=== PATIENT | male | born 1960 | race Caucasian/White ===

== ENCOUNTER → 2018-04-05 | Outpatient (CLI) | payer OTHER ==
[~2018-04-05] MED LIST: PROHANCE 279.3MG/ML 15ML VIAL (A9576) As Ordered
== END ==
LOC: M RAD 10:26
DX: R68.84 Jaw pain (principal); Z85.818 Personal history of malignant neoplasm of other sites of lip, oral cavity, and pharynx; Z92.3 Personal history of irradiation
CPT/HCPCS: A9576

== ENCOUNTER 2019-02-23 00:24 | Inpatient (IN) | payer OTHER ==
[~2019-02-23] VITALS: Ht 182.9 cm; Wt 61.9 kg
[2019-02-23] VITALS (7 sets, daily range): BP systolic 100–131; BP diastolic 59–74
[~2019-02-23 00:24] MED LIST changes: +DIGO0.12 PO; +FLUC10TA PO; +GABA-1171 PO; +LISI-538 PO; +MAGN400T2 PO; +METO50TA7 PO; +MORP20SO PO; +MSIR30TA PO; +NEUR100C PO; +NEXI40CA PO; +OXYC15TA66 PO; -PROHANCE 279.3MG/ML 15ML VIAL (A9576) As Ordered; +REGL10TA6 PO; +XARE20TA PO
[2019-02-23] MEDS ORDERED: OXYC20TA40 PO (00:42)
[2019-02-23] MEDS ORDERED: MORP30TASA PO (00:42)
[2019-02-23] MEDS ORDERED: DIGO0.12 (00:42)
[2019-02-23] MEDS ORDERED: METO10TA2 PO (00:42)
[2019-02-23] MEDS ORDERED: ASPI81CH33 PO (00:49)
[2019-02-23] MEDS ORDERED: NS 1,000 ML IV ONE (01:00)
[2019-02-23] MEDS ORDERED: MORPHINE 10 MG/ML 1ML VIAL (J2270) IV ONE ×2 (01:00→05:00)
[2019-02-23 01:20] LABS: BASO # 0.1 10^3/uL (0.0-0.2); BASO % 1.1 % (0.0-1.0); EOS # 0.4 10^3/uL (0.0-0.50); EOS % 8.1 % (0.0-3.0); HEMATOCRIT 38.1 % (42.0-52.0); HEMOGLOBIN 13.5 g/dl (13.5-17.5); LYMPH % 21.7 % (24.0-44.0); MEAN CORPUSCULAR HEMOGLOBIN 38.7 pg (27.0-33.0); MEAN CORPUSCULAR HGB CONC 35.4 g/dl (32.0-36.5); MEAN CORPUSCULAR VOLUME 109.2 fl (80.0-96.0); MONO # 0.6 10^3/uL (0.0-0.8); MONO % 13.4 % (0.0-5.0); NEUTROPHILS # 2.6 10^3/uL (1.8-7.7); NEUTROPHILS % 55.1 % (36.0-66.0); PLATELET COUNT, AUTOMATED 135 10^3/uL (150-450); RED BLOOD COUNT 3.49 10^6/uL (4.30-6.10); WHITE BLOOD COUNT 4.7 10^3/uL (4.0-10.0)
[2019-02-23 01:38] LABS: PROTHROMBIN TIME 13.3 SECONDS (12.1-14.4)
[2019-02-23 01:39] LABS: PARTIAL THROMBOPLASTIN TIME 30.2 SECONDS (25.4-37.6)
[2019-02-23 01:55] LABS: BLOOD UREA NITROGEN 3 MG/DL (7-18); CALCIUM LEVEL 7.8 MG/DL (8.5-10.1); CARBON DIOXIDE LEVEL 28 MEQ/L (21-32); CHLORIDE LEVEL 98 MEQ/L (98-107); CREATININE FOR GFR 0.42 MG/DL (0.70-1.30); ETHYL ALCOHOL (ETHANOL) 0.291 % (0.000-0.010); GLOMERULAR FILTRATION RATE > 60.0 (>56); GLUCOSE, FASTING 95 MG/DL (70-100); POTASSIUM SERUM 4.8 MEQ/L (3.5-5.1); SODIUM LEVEL 134 MEQ/L (136-145)
[2019-02-23] MEDS ORDERED: DIGO0.12 PO (02:54)
[2019-02-23] MEDS ORDERED: MAG-400T7 PO (02:54)
[2019-02-23] MEDS ORDERED: ESOM1CAP5 PO (02:54)
[2019-02-23] MEDS ORDERED: METO50TA7 PO (02:54)
[2019-02-23] MEDS ORDERED: POTA50TAB PO (03:00)
[2019-02-23] MEDS ORDERED: oxyCODONE 20 MG CR TAB PO SCH (03:15)
[2019-02-23] MEDS: D5W/0.45% SODIUM CHLORIDE 1,000 ML IV SCH ×2 (03:40→13:07)
--- NOTE | 2019-02-23 07:15 | ECGEPIP ---
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
[2019-02-23] MEDS: MAGNESIUM OXIDE 400 MG TAB (MAG-OX) PO SCH ×2 (08:21→20:58)
[2019-02-23] MEDS: METOCLOPRAMIDE 10 MG TAB PO SCH (08:21)
[2019-02-23] MEDS: MORPHINE 30 MG SA TAB PO SCH ×2 (08:21→21:01)
--- NOTE | 2019-02-23 08:34 | HPE ---
DATE OF ADMISSION: 02/23/2019 PRIMARY CARE PROVIDER: Dr. Layton Olguin. CHIEF COMPLAINT: Left hip pain. HISTORY OF PRESENT ILLNESS: The patient is a 58-year-old white male with a history of atrial fibrillation and the jaw cancer presented to the ER for evaluation of left hip pain after fall at home. History was provided by himself. He states he had trapped with his dog and fell at home. He has a horrible pain in his left hip and brought to the hospital for further evaluation. He denies any syncope episodes. The ER he had an x-ray done which demonstrated that he had some left hip fracture and orthopedics was called for consult. Meanwhile medicine service was called for admission. REVIEW OF SYSTEMS: Denies fever, no chills, no headache, no blurred vision no shortness of breath, no chest pain, no abdomen pain. All other systems reviewed are negative. MEDICAL HISTORY: Chronic atrial fibrillation Jaw cancer, s/p surgery and radiation therapy Chronic pain on chronic narcotics. SURGICAL HISTORY: Jaw cancer resection and reconstruction. ALLERGIES: No known drug allergies. SOCIAL HISTORY: Denies tobacco use, alcohol, drinking on the weekend, about 6 beers on the weekend and no drug abuse. He lives by himself. FAMILY HISTORY: Negative for cancer or coronary artery disease. MEDICATIONS: Reviewed. PHYSICAL EXAMINATION: VITALS: Temperature 98.7, heart rate 87, blood pressure 102/70, Oxygen sat 97% on room air. GENERAL: He is awake, alert and oriented times three. He is in acute pain and stress. HEENT: Atraumatic. Pupils are equal and round reactive to light. Ear, nose and extraocular muscles are intact and no jaundice. Ear, nose and throat are normal. Mouth, mucous not dry and he does have a extensive surgical scar tissue in his jaw/neck area. LUNGS: Clear. No wheezes and no crackles. Heart S1, S2 regular no murmur. HEART: S1, S2 irregular but no murmur. ABDOMEN: Soft and bowel sounds present nontender. EXTREMITIES: No edema. He has a shortened and externally rotate in the left extremity. NEUROLOGICAL: Nonfocal. SKIN: No rash. PSYCHE: No acute psychosis. LABS: WBC 4.7, hemoglobin and hematocrit 13.5 over 38, platelets 135, sodium 134, potassium 4.0, creatinine 0.2, bicarbonate 28, glucose 95, PT/INR was in normal limits and x-ray was reviewed which showed a left hip fracture. IMPRESSION 1. Left hip fracture secondary to mechanical fall. 2. History of chronic atrial fibrillation which is rate controlled. PLAN: The patient will be admitted to medical floor. Will continue his regular medicine. We will keep him nothing by mouth. He is medically clear for possible surgical repair of his left hip. AYDIN
[2019-02-23] MEDS ORDERED: ENOXAPARIN 40 MG/0.4 ML SYRINGE (J1650) SC SCH (09:00)
--- NOTE | 2019-02-23 10:33 | IPNPDOC ---
Subjective Date Seen The patient was seen on 02/23/19. Subjective Chief Complaint/HPI Does not have any complaints this morning except for pain in his hip even on slight movement. No fever or chills, no tremors, says does not have any withdrawal symptoms if he does not drink. Objective Physical Examination General Exam: Positive: Alert, Cooperative, No Acute Distress Eye Exam: Positive: PERRLA, Conjunctiva & lids normal, EOMI; Negative: Sclera icteric ENT Exam: Positive: Mucous membr. moist/pink Neck Exam: Positive: Supple; Negative: JVD, thyromegaly Chest Exam: Positive: Clear to auscultation, Normal air movement Heart Exam: Positive: Rate Normal, Irregular Rhythm, Normal S1, Normal S2 Telemetry: Positive: Atrial fibrillation Abdomen Exam: Positive: Normal bowel sounds, Soft; Negative: Tenderness, Hepatospenomegaly Extremity Exam: Positive: Normal pulses; Negative: Clubbing, Cyanosis, Edema Neuro Exam: Positive: Normal Speech, Strength at 5/5 X4 ext, Normal Tone Psych Exam: Positive: Mental status NL, Memory Intact, Oriented x 3 Assessment /Plan Assessment 58-year-old white male with a history of cardiomyopathy in 2006 recovered, atrial fibrillation on ASA, and the jaw cancer with extensive reconstruction in 2012 presented to the ER for evaluation of left hip pain after fall at home. History was provided by himself. He stated that he had tripped on his dog and fell at home. He has a horrible pain in his left hip and brought to the hospital for further evaluation. Has was also drinking heavily at that time and had had several beers. He denies any syncope episodes. The ER he had an x-ray done which demonstrated that he had some left hip fracture and was admitted for the same. Left hip fracture planned for surgery on 02/23/19 Once his alcohol level is down he will be going to OR pain management and DVT prophylaxis as per ortho Afib continue metoprolol and digoxin patient has afib rate controlled on ASA Alcohol abuse no signs of withdrawal will give thiamine and folate. CIWA protocol. Jaw cancer s/p surgery and reconstruction in 2012 chronic pain on ns contin bid and oxycodone also at home will continue. no issues at this point. Plan/VTE VTE Prophylaxis Ordered?: Yes VS, I&O, 24H, Fishbone Vital Signs/I&O Vital Signs Date Time Temp Pulse Resp B/P (MAP) Pulse Ox O2 Delivery O2 Flow Rate FiO2 02/23/19 08:21 16 02/23/19 05:50 99.2 91 103/63 93 02/23/19 03:35 Room Air I&O- Last 24 Hours up to 6 AM 02/23/19 06:00 Intake Total 1200 ml Balance 1200 ml Laboratory Data 24H LABS Laboratory Tests 2 02/23/19 01:12: Immature Granulocyte % (Auto) 0.6, White Blood Count 4.7, Red Blood Count 3.49L, Hemoglobin 13.5, Hematocrit 38.1L, Mean Corpuscular Volume 109.2H, Mean Rajeev uscular Hemoglobin 38.7H, Mean Corpuscular Hemoglobin Concent 35.4, Red Cell Distribution Width 13.5, Platelet Count 135L, Neutrophils (%) (Auto) 55.1, Lymphocytes (%) (Auto) 21.7L, Monocytes (%) (Auto) 13.4H, Eosinophils (%) (Auto) 8.1H, Basophils (%) (Auto) 1.1H, Neutrophils # (Auto) 2.6, Lymphocytes # (Auto) 1.0L, Monocytes # (Auto) 0.6, Eosinophils # (Auto) 0.4, Basophils # (Auto) 0.1, Nucleated Red Blood Cells % (auto) 0.0, Prothrombin Time 13.3, Prothromb Time International Ratio 1.00, Activated Partial Thromboplast Time 30.2, Anion Gap 8, Glomerular Filtration Rate > 60.0, Blood Urea Nitrogen 3L, Creatinine 0.42L, Sodium Level 134L, Potassium Level 4.8, Chloride Level 98, Carbon Dioxide Level 28, Calcium Level 7.8L, Ethyl Alcohol Level 0.291H 02/23/19 09:09: Ethyl Alcohol Level 0.084H CBC/BMP Laboratory Tests 02/23/19 01:12 Red Blood Count 3.49 L, Mean Corpuscular Volume 109.2 H, Mean Corpuscular Hemoglobin 38.7 H, Mean Corpuscular Hemoglobin Concent 35.4, Red Cell Distribution Width 13.5, Neutrophils (%) (Auto) 55.1, Lymphocytes (%) (Auto) 21.7 L, Monocytes (%) (Auto) 13.4 H, Eosinophils (%) (Auto) 8.1 H, Basophils (%) (Auto) 1.1 H, Neutrophils # (Auto) 2.6, Lymphocytes # (Auto) 1.0 L, Monocytes # (Auto) 0.6, Eosinophils # (Auto) 0.4, Basophils # (Auto) 0.1, Calcium Level 7.8 L JING BHAT MD Feb 23, 2019 10:33
--- NOTE | 2019-02-23 11:38 | REP ---
LEFT FEMUR: AP and lateral views of the left femur are performed. Comminuted intertrochanteric fracture of the proximal left femur is noted with mild varus angulation. The distal femur is intact. There is metallic internal fixation in the proximal tibia. There is no dislocation. Electronically Signed by Papo Fischer MD 02/23/2019 07:27 P
--- NOTE | 2019-02-23 11:40 | REP ---
PELVIS AND LEFT HIP: AP view of the pelvis and AP and frogleg views of the left hip are performed. There is a comminuted intertrochanteric fracture of the proximal left femur, with a separate lesser trochanter fragment. There is mild varus angulation, with medial displacement of the lesser trochanter fragment. No other acute fracture or dislocation is seen. There is mild degenerative change of the left hip joint itself. There is more severe degenerative change at the right hip joint with severe joint space narrowing and subchondral sclerosis. There are a few rounded joint bodies adjacent to the right femoral head, the largest superolaterally is 1.5 cm in diameter. Electronically Signed by Papo Fischer MD 02/23/2019 07:27 P
[2019-02-23] MEDS: MORPHINE 10 MG/ML 1ML VIAL (J2270) IV PRN ×2 (13:01→17:11)
--- NOTE | 2019-02-23 14:27 | CR.PDOC ---
General Date of Consultation: Feb 23, 2019 Referring Provider: JING BHAT MD Attending Physician: JAIDEN CARY MD Consultation REASON FOR CONSULTATION/CHIEF COMPLAINT: Left proximal femur fracture. HISTORY OF PRESENT ILLNESS: Patient is a 58 y/o male community ambulator with no assistive devices who was intoxicated last night and sustained a mechanical fall after tripping over his dog and had immediate left hip pain and inability to bear weight. He was brought to the ER and found to have an intertrochanteric femur fracture and orthopedics was consulted for further management. He was admitted to the hospitalist for medica optimization and risk stratification. Patient recalls the fall event but does not remember how much he drank. Denies drinking daily. Denies any antecedent chest pain, shortness of breath, headache, or hip pain. No associated numbness, tingling, or burning sensations. ALLERGIES: Please see below. HOME MEDICATIONS: Please see below. PAST MEDICAL HISTORY: 1. Atrial fibrillation. 2. Jaw cancer, in remission. 3. GERD 4. Hypertension 5. Chronic pain PAST SURGICAL HISTORY: 1. Jaw reconstruction 2. L knee HTO FAMILY HISTORY: non contributory SOCIAL HISTORY: Patient lives alone and independent in all ADLs. 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 Prior smokeless tobacco user, denies current smoking or smokeless tobacco use. States he drinks one 12 pack of beer per week. REVIEW OF SYSTEMS: CONSTITUTIONAL: NO fevers, chills, or night sweats. HEENT: Prior history of jaw reconstruction. CARDIOVASCULAR: History of A fib. no current chest pain or palpitations. RESPIRATORY: No cough, wheeze, or shortness of breath. GENITOURINARY: No pain or burning with urination. MUSCULOSKELETAL: L hip fx per HPI. GASTROINTESTINAL: No nausea, vomiting, or diarrhea. NEUROLOGICAL: + intoxication on admission. HEMATOLOGIC/LYMPHATIC: history of chemotherapy for jaw cancer, currently in remission per patient. PHYSICAL EXAMINATION: VITAL SIGNS: Please see below. GENERAL APPEARANCE: Appears older than stated age, no acute distress. HEENT: Sequelae of prior jaw reconstruction. No evidence of acute trauma. RESPIRATORY: Non labored breathing. CARDIOVASCULAR: 2+ DP/PT pulses. BCR all digits LLE. EXTREMITIES: L hip with no open wounds or abrasions. There is maximal tenderness about the anterior and lateral aspect of the L hip. Held in a flexed, externally rotated position. No tenderness about the knee, leg, or ankle. Able to flex/extend toes and plantarflex/dorsiflex ankle. NEUROLOGICAL: Sensation and motor grossly intact in LLE femoral, tibial, sural, saphenous, SPN, DPN distributions. LABORATORY DATA: Please see below. Alcohol level on admission 0.291, down to 0.08 at 0900. INR 1.0 Radiographs: Plain radiographs of the left hip, pelvis, and femur demonstrate a displaced intertrochanteric left femur fracture. ASSESSMENT: 58 y/o male, intoxicated on admission, with an unstable intertrochanteric L femur fracture PLAN: I discussed with the patient the nature of his injury and the proposed treatment. These injuries require surgical stabilization as soon as medically optimized in order to minimize the risk of complications. The risks, benefits, indications, and alternatives were explained to the patient and I recommend closed versus open reduction and cephalomedullary nail fixation. I counseled him that I will be his operating surgeon, but his follow up care will be conducted by the [facility]. I counseled him that he may be at increased risk of VTE event post operatively and will require post op chemoprophylaxis. A repeat alcohol level was drawn at 0900 which was down to 0.08. Written informed consent was obtained from the patient at 1420. We will proceed with L proximal femur open versus closed reduction and cephalomedullary nail fixation today. -Ancef 2g IV OCTOR -WBAT LLE post op -Xarelto 10mg PO daily to begin POD1 Vital Signs/I&O Vital Signs Date Time Temp Pulse Resp B/P (MAP) Pulse Ox O2 Delivery O2 Flow Rate FiO2 02/23/19 08:21 16 02/23/19 05:50 99.2 91 103/63 93 02/23/19 03:35 Room Air I&O- Last 24 Hours up to 6 AM 02/23/19 06:00 Intake Total 1200 ml Balance 1200 ml Laboratory Data Labs 24H Laboratory Tests 2 02/23/19 01:12: Immature Granulocyte % (Auto) 0.6, White Blood Count 4.7, Red Blood Count 3.49L, Hemoglobin 13.5, Hematocrit 38.1L, Mean Corpuscular Volume 109.2H, Mean Corpuscular Hemoglobin 38.7H, Mean Corpuscular Hemoglobin Concent 35.4, Red Cell Distribution Width 13.5, Platelet Count 135L, Neutrophils (%) (Auto) 55.1, Lymphocytes (%) (Auto) 21.7L, Monocytes (%) (Auto) 13.4H, Eosinophils (%) (Auto) 8.1H, Basophils (%) (Auto) 1.1H, Neutrophils # (Auto) 2.6, Lymphocytes # (Auto) 1.0L, Monocytes # (Auto) 0.6, Eosinophils # (Auto) 0.4, Basophils # (Auto) 0.1, Nucleated Red Blood Cells % (auto) 0.0, Prothrombin Time 13.3, Prothromb Time International Ratio 1.00, Activated Partial Thromboplast Time 30.2, Anion Gap 8, Glomerular Filtration Rate > 60.0, Blood Urea Nitrogen 3L, Creatinine 0.42L, Sodium Level 134L, Potassium Level 4.8, Chloride Level 98, Carbon Dioxide Level 28, Calcium Level 7.8L, Ethyl Alcohol Level 0.291H CBC/BMP Laboratory Tests 02/23/19 01:12 Red Blood Count 3.49 L, Mean Corpuscular Volume 109.2 H, Mean Corpuscular Hemoglobin 38.7 H, Mean Corpuscular Hemoglobin Concent 35.4, Red Cell Distributi on Width 13.5, Neutrophils (%) (Auto) 55.1, Lymphocytes (%) (Auto) 21.7 L, Monocytes (%) (Auto) 13.4 H, Eosinophils (%) (Auto) 8.1 H, Basophils (%) (Auto) 1.1 H, Neutrophils # (Auto) 2.6, Lymphocytes # (Auto) 1.0 L, Monocytes # (Auto) 0.6, Eosinophils # (Auto) 0.4, Basophils # (Auto) 0.1, Calcium Level 7.8 L Allergies Coded Allergies: No Known Allergies (Verified , 09/08/04) Home Medications Scheduled Aspirin (Aspirin) 81 Mg Tab.chew, 81 MG PO DAILY, (Reported) Digoxin (Digoxin) 125 Mcg Tablet, 125 MCG PO QHS, (Reported) Esomeprazole Magnesium (Esomeprazole Magnesium) 40 Mg Capsule.dr, 40 MG PO DAILY, (Reported) Magnesium Oxide (Magnesium Oxide) 400 Mg Tablet, 400 MG PO BID, (Reported) Metoclopramide HCl (Metoclopramide HCl) 10 Mg Tablet, 10 MG PO DAILY, (Reported) Metoprolol Tartrate (Metoprolol Tartrate) 50 Mg Tablet, 50 MG PO QHS, (Reported) Morphine Sulfate (Morphine Sulfate ER) 30 Mg Tablet.er, 30 MG PO BID, (Reported) Oxycodone HCl (Oxycontin) 20 Mg Tab.er.12h, 20 MG PO Q12H, (Reported) Potassium Phosphate Monobasic (K-Phos Original) 500 Mg Tablet.julissa, 500 MG PO BID, (Reported) UNABLE TO VERIFY THIS MEDICATION UNTIL THE PHARMACY OPENS MONDAY JAIDEN CARY MD Feb 23, 2019 09:24
--- NOTE | 2019-02-23 14:29 | REP ---
CHEST, SINGLE VIEW: Single view of the chest is performed and compared to prior study of 01/23/2015. There is no acute infiltrate. Heart is not significantly enlarged. Mediastinal silhouette is unchanged Metallic clips are seen in both axillary regions. IMPRESSION: No acute infiltrate. Electronically Signed by Papo Fischer MD 02/23/2019 07:40 P
[2019-02-23] MEDS ORDERED: PROPOFOL 500 MG/50 ML VIAL As Ordered ONE (15:13)
[2019-02-23] MEDS ORDERED: MIDAZOLAM INJ 2 MG/2 ML VIAL (J2250) As Ordered ONE (15:14)
[2019-02-23] MEDS ORDERED: LIDOCAINE 2% INJ 100 MG/5 ML SDV (FOR ANES.) As Ordered ONE (15:14)
[2019-02-23] MEDS ORDERED: dexameTHASONE 4 MG/ML 1ML VIAL (J1100) As Ordered ONE (15:15)
[2019-02-23] MEDS ORDERED: METOPROLOL TART 25 MG TABLET PO ONE (17:00)
[2019-02-23] MEDS: MULTIVITAMINS/MINERALS THERAP 1 TAB PO SCH (17:05)
[2019-02-23] MEDS: FOLIC ACID 1 MG TAB PO SCH (17:05)
[2019-02-23] MEDS: THIAMINE 100 MG TAB PO SCH (20:57)
[2019-02-23] MEDS: DIGOXIN 0.125 MG TAB PO SCH (20:57)
[2019-02-23] MEDS: METOPROLOL TART 50 MG TAB PO SCH (20:59)
[2019-02-23] MEDS ORDERED: METOPROLOL TART 50 MG TAB PO SCH (21:00)
[2019-02-23] MEDS: LORazepam 2 MG TAB PO PRN (21:14)
[2019-02-24] VITALS (15 sets, daily range): BP systolic 90–168; BP diastolic 51–79
[2019-02-24] MEDS ORDERED: ACETAMINOPHEN TAB 650MG DOSE (2X325MG) PO PRN (02:00)
[2019-02-24] MEDS: MORPHINE 10 MG/ML 1ML VIAL (J2270) IV PRN (02:27)
[2019-02-24] MEDS: D5W/0.45% SODIUM CHLORIDE 1,000 ML IV SCH (05:25)
[2019-02-24] MEDS ORDERED: MIDAZOLAM INJ 2 MG/2 ML VIAL (J2250) As Ordered ONE ×2 (08:09→10:42)
[2019-02-24] MEDS ORDERED: fentaNYL 100 MCG/2 ML INJECTION (J3010) As Ordered ONE ×2 (08:09→10:42)
[2019-02-24] MEDS ORDERED: BUPIVACAINE HCL 0.25% 30 ML VIAL As Ordered ONE ×2 (08:27→08:41)
[2019-02-24] MEDS ORDERED: fentaNYL 100 MCG/2 ML INJECTION (J3010) IV ONE (09:15)
[2019-02-24] MEDS ORDERED: MIDAZOLAM INJ 2 MG/2 ML VIAL (J2250) IV ONE (09:15)
[2019-02-24] MEDS ORDERED: ceFAZolin 1GM INJ (J0690 PER 500MG) As Ordered ONE (09:59)
[2019-02-24] MEDS ORDERED: ceFAZolin 2 GM/D5W 50 ML IV BAG (J0690 PER 500MG) As Ordered ONE (10:11)
[2019-02-24] MEDS ORDERED: KETAMINE HCL 200 MG/20 ML VIAL As Ordered ONE (10:42)
[2019-02-24] MEDS ORDERED: LIDOCAINE 2% INJ 100 MG/5 ML SDV (FOR ANES.) As Ordered ONE (10:42)
[2019-02-24] MEDS ORDERED: ESMOLOL INJ 100MG/10ML VIAL As Ordered ONE (10:42)
[2019-02-24] MEDS ORDERED: BUPIVACAINE HCL 0.5% 30 ML VIAL As Ordered ONE (10:42)
[2019-02-24] MEDS ORDERED: PROPOFOL 200 MG/20 ML VIAL As Ordered ONE (10:42)
[2019-02-24] MEDS ORDERED: LIDOCAINE 1% MDV 20ML VIAL ONE (10:58)
[2019-02-24] MEDS ORDERED: PROMETHAZINE INJ 25 MG/ML VIAL (J2550) IV PRN (12:15)
[2019-02-24] MEDS ORDERED: oxyCODONE 5MG TAB PO PRN (12:15)
[2019-02-24] MEDS ORDERED: METOCLOPRAMIDE INJ 10MG/2ML VIAL (J2765) IV PRN (12:15)
[2019-02-24] MEDS ORDERED: LR 1,000 ML IV SCH (12:15)
[2019-02-24] MEDS ORDERED: fentaNYL 100 MCG/2 ML INJECTION (J3010) IV PRN (12:15)
[2019-02-24] MEDS ORDERED: traMADol 50 MG TAB PO PRN ×2 (12:30)
[2019-02-24] MEDS: MAGNESIUM OXIDE 400 MG TAB (MAG-OX) PO SCH ×2 (14:13→21:14)
[2019-02-24] MEDS: FOLIC ACID 1 MG TAB PO SCH (14:14)
[2019-02-24] MEDS: METOCLOPRAMIDE 10 MG TAB PO SCH (14:14)
[2019-02-24] MEDS: MULTIVITAMINS/MINERALS THERAP 1 TAB PO SCH (14:14)
[2019-02-24] MEDS: THIAMINE 100 MG TAB PO SCH ×2 (14:14→21:14)
[2019-02-24] MEDS: METOPROLOL TART 50 MG TAB PO SCH ×2 (14:15→21:00)
[2019-02-24] MEDS: MORPHINE 30 MG SA TAB PO SCH ×2 (14:15→21:24)
[2019-02-24] MEDS ORDERED: DIGOXIN 0.125 MG TAB PO STA (14:29)
[2019-02-24] MEDS: LORazepam 2 MG TAB PO PRN (14:42)
[2019-02-24] MEDS ORDERED: NS 500 ML IV ONE (21:15)
[2019-02-24] MEDS: DIGOXIN 0.125 MG TAB PO SCH (21:15)
[2019-02-25] VITALS (9 sets, daily range): BP systolic 95–146; BP diastolic 55–82
[2019-02-25] MEDS ORDERED: DIGOXIN INJ 0.5 MG/2 ML AMP (J1160) IV STA (00:15)
--- NOTE | 2019-02-25 07:04 | REP ---
LEFT FEMUR, AP AND LATERAL: AP and lateral views of left femur are performed. There is an intramedullary aiden in the femoral shaft, an anchor in the proximal femur and two metallic screws in the distal femur. Metallic internal fixation was also seen in the proximal left tibia. Structures are well aligned. Intertrochanteric fracture is well aligned. Electronically Signed by Papo Fischer MD 02/25/2019 08:28 A
--- NOTE | 2019-02-25 07:40 | REP ---
C-ARM VIEWS LEFT HIP: Multiple C-ARM views of the left hip are performed during placement of an intramedullary aiden and for an intertrochanteric fracture. The intramedullary aiden is visualized as well as a proximal anchor and two distal screws in the femur. The structures are well aligned. 2 minutes and 16 seconds of fluoroscopy time was utilized. Electronically Signed by Papo Fischer MD 02/25/2019 08:37 A
[2019-02-25] MEDS: MIRALAX *UNIT DOSE* 17GM PACKET PO SCH (08:33)
[2019-02-25] MEDS: METOCLOPRAMIDE 10 MG TAB PO SCH (08:34)
[2019-02-25] MEDS: MOM 30ML SUSPENSION UDC PO SCH (08:34)
[2019-02-25] MEDS: METOPROLOL TART 50 MG TAB PO SCH ×2 (08:34→20:34)
[2019-02-25] MEDS: THIAMINE 100 MG TAB PO SCH ×2 (08:35→20:35)
[2019-02-25] MEDS: FOLIC ACID 1 MG TAB PO SCH (08:35)
[2019-02-25] MEDS: MAGNESIUM OXIDE 400 MG TAB (MAG-OX) PO SCH ×2 (08:35→20:35)
[2019-02-25] MEDS: MORPHINE 30 MG SA TAB PO SCH ×2 (08:35→20:35)
[2019-02-25] MEDS: MULTIVITAMINS/MINERALS THERAP 1 TAB PO SCH (08:36)
--- NOTE | 2019-02-25 08:41 | IPNPDOC ---
Subjective Date Seen The patient was seen on 02/24/19. Subjective Chief Complaint/HPI OR today . No complaints . Pain controlled, no fever or chills, no chest pain or sob , no palpitation. No signs of withdrawal . Objective Physical Examination General Exam: Positive: Alert, Cooperative, No Acute Distress Eye Exam: Positive: PERRLA, Conjunctiva & lids normal, EOMI; Negative: Sclera icteric ENT Exam: Positive: Mucous membr. moist/pink Neck Exam: Positive: Supple; Negative: JVD, thyromegaly Chest Exam: Positive: Clear to auscultation, Normal air movement Heart Exam: Positive: Rate Normal, Irregular Rhythm, Normal S1, Normal S2 Telemetry: Positive: Atrial fibrillation Abdomen Exam: Positive: Normal bowel sounds, Soft; Negative: Tenderness, Hepatospenomegaly Extremity Exam: Positive: Normal pulses; Negative: Clubbing, Cyanosis, Edema Neuro Exam: Positive: Normal Speech, Strength at 5/5 X4 ext, Normal Tone Psych Exam: Positive: Mental status NL, Memory Intact, Oriented x 3 Assessment /Plan Assessment 58-year-old white male with a history of cardiomyopathy in 2006 recovered, atrial fibrillation on ASA, and the jaw cancer with extensive reconstruction in 2012 presented to the ER for evaluation of left hip pain after fall at home. History was provided by himself. He stated that he had tripped on his dog and fell at home. He has a horrible pain in his left hip and brought to the hospital for further evaluation. Has was also drinking heavily at that time and had had several beers. He denies any syncope episodes. The ER he had an x-ray done which demonstrated that he had some left hip fracture and was admitted for the same. Left hip fracture planned for surgery on 02/23/19 however had to be postponed as pateint was in AFib with RVR rate in 140s and also there was mild alcohol withdrawal went for surgery on 02/24/19 pain management and DVT prophylaxis as per ortho Afib with RVR continue metoprolol and digoxin metoprolol dose increased. dig level ok. on ASA Alcohol abuse no signs of withdrawal today. Had mild withdrawal last night will give thiamine and folate. CIWA protocol. Jaw cancer s/p surgery and reconstruction in 2012 chronic pain on MS contin bid and oxycodone also at home will continue. no issues at this point. Plan/VTE VTE Prophylaxis Ordered?: Yes VS, I&O, 24H, Fishbone Vital Signs/I&O Vital Signs Date Time Temp Pulse Resp B/P (MAP) Pulse Ox O2 Delivery O2 Flow Rate FiO2 02/24/19 10:10 90 18 128/72 (90) 100 3 02/24/19 06:00 97.1 02/23/19 03:35 Room Air I&O- Last 24 Hours up to 6 AM 02/24/19 06:00 Intake Total 1920 ml Output Total 550 ml Balance 1370 ml Laboratory Data 24H LABS Laboratory Tests 2 02/24/19 06:21: Digoxin Level 0.8 JING BHAT MD Feb 24, 2019 10:35
--- NOTE | 2019-02-25 08:48 | IPNPDOC ---
Subjective Date Seen The patient was seen on 02/25/19. Subjective Chief Complaint/HPI Says had a bad night could not sleep due to uncontrolled pain and he was moved from 1 room to another. Pateint was moved to PCU for Afib with rvr. This morning seen working with PT . Pulse rate in 150s to 160s on mobilization from bed to chair. Will need much better control till he can be moved from PCU. No chest pain. does not complain of palpitation. No nausea or vomiting or diarrhea . Spoke with sister in law at bedside. Says he is an alcoholic starts drinking from 8 am and drinks all day. He has been falling frequently. He is also addicted to morphine. He had a temperature of T max of 101.5 last night and 100.6 this am. Could be due to alcohol withdrawal and just post op. Objective Physical Examination General Exam: Positive: Alert, Cooperative, No Acute Distress Eye Exam: Positive: PERRLA, Conjunctiva & lids normal, EOMI; Negative: Sclera icteric ENT Exam: Positive: Mucous membr. moist/pink Neck Exam: Positive: Supple; Negative: JVD, thyromegaly Chest Exam: Positive: Clear to auscultation, Normal air movement Heart Exam: Positive: Rate Normal, Irregular Rhythm, Normal S1, Normal S2 Telemetry: Positive: Atrial fibrillation Abdomen Exam: Positive: Normal bowel sounds, Soft; Negative: Tenderness, Hepatospenomegaly Extremity Exam: Positive: Normal pulses; Negative: Clubbing, Cyanosis, Edema Neuro Exam: Positive: Normal Speech, Strength at 5/5 X4 ext, Normal Tone Psych Exam: Positive: Mental status NL, Memory Intact, Oriented x 3 Assessment /Plan Assessment 58-year-old white male with a history of cardiomyopathy in 2006 recovered, atrial fibrillation on ASA, and the jaw cancer with extensive reconstruction in 2013 presented to the ER for evaluation of left hip pain after fall at home. History was provided by himself. He stated that he had tripped on his dog and fell at home. He has a horrible pain in his left hip and brought to the hospital for further evaluation. Has was also drinking heavily at that time and had had several beers. He denies any syncope episodes. The ER he had an x-ray done which demonstrated that he had some left hip fracture and was admitted for the same. Left hip fracture Was planned for surgery on 02/23/19 however had to be postponed as patient was in AFib with RVR rate in 140s and also there was mild alcohol withdrawal went for surgery on 02/24/19 pain management and DVT prophylaxis as per ortho Afib with RVR rate still not controlled. Part of it could be due to alcohol withdrawal issues. continue metoprolol and digoxin metoprolol dose increased. given extra doses of digoxin. Bp low normal so will not be able to increase dose of metoprolol dig level ok. on ASA Alcohol abuse/ alcoholic no signs of withdrawal today. Had mild withdrawal last night will give thiamine and folate. [facility] protocol. Jaw cancer s/p surgery and reconstruction in 2012 chronic pain issues, narcotic dependence on MS contin bid and oxycodone also at home will continue. no issues at this point. Plan/VTE VTE Prophylaxis Ordered?: Yes VS, I&O, 24H, Fishbone Vital Signs/I&O Vital Signs Date Time Temp Pulse Resp B/P (MAP) Pulse Ox O2 Delivery O2 Flow Rate FiO2 02/25/19 08:35 20 02/25/19 08:34 150 105/55 02/25/19 04:00 100.6 95 02/24/19 12:10 2 02/23/19 03:35 Room Air I&O- Last 24 Hours up to 6 AM 02/25/19 06:00 Intake Total 1100 ml Balance 1100 ml JING BHAT MD Feb 25, 2019 08:48
--- NOTE | 2019-02-25 10:58 | RO ---
DATE OF PROCEDURE: 02/24/2019 PREOPERATIVE DIAGNOSIS: Left intertrochanteric femur fracture. POSTOPERATIVE DIAGNOSIS: Left intertrochanteric femur fracture. PROCEDURE PERFORMED: Left proximal femur closed reduction and cephalomedullary nail fixation. SURGEON: Teo Sims MD RECREATIONAL THERAPY TECHNICIAN: CYNDEE Galindo ANESTHESIA PROVIDER: Bennie Cantu MD ANESTHESIA GIVEN: Single-shot femoral nerve block and single-shot spinal. ANTIBIOTICS: 2 grams Ancef given within 1 hour of incision. IMPLANTS USED: Synthes TFN-Advanced 11 mm x 420 mm nail with a 95 mm helical blade and 56 and 58 mm x 5mm distal interlocking screws. COMPLICATIONS: None. ESTIMATED BLOOD LOSS: 150 mL. MATERIALS SENT TO LABORATORY: None. INDICATION FOR PROCEDURE: Agnieszka Weir is a 58-year-old alcoholic male who sustained a mechanical fall while intoxicated the evening of 02/22/2019. He had immediate left hip pain and inability to bear weight and presented to the emergency department and was found to have intertrochanteric femur fracture. He was admitted by hospitalist service for medical optimization. His surgery had to be delayed secondary to tachycardia resulting from a combination of atrial fibrillation and possible alcohol withdrawal symptoms, which was then brought under control. He was then cleared for surgery. I discussed with him the nature of his injury and the risks, benefits, indications, and alternatives of operative versus nonoperative management. I counseled him that I will be his operating surgeon and his followup care will be conducted by [facility]. He expressed understanding of this and provided written informed consent for a left proximal femur closed versus open reduction cephalomedullary nail fixation. INTRAOPERATIVE FINDINGS: There was near-anatomic reduction, stable after fixation. DESCRIPTION OF PROCEDURE: The patient was positively identified in the preoperative holding area where the surgical site was marked. He was then given a single-shot femoral nerve block by the anesthesia service for postoperative pain control. He was then brought to the operating room, where he was given a single-shot spinal anesthesia and then positioned supine on the fracture table with all bony prominences appropriately padded. Sequential compression device (SCD) was placed on the nonoperative extremity for deep venous thrombosis (DVT) prophylaxis. I obtained a provisional reduction using fracture table and intraoperative C-arm fluoroscopy. He was then prepped and draped in the usual sterile fashion. A final time-out was performed. I made a 3 cm incision about 3 fingerbreadths proximal posterior to the tip of the greater trochanter. I dissected through skin and subcutaneous tissue. I introduced the 3.2 mm threaded guidewire to the level of the lesser trochanter centered on AP and lateral hip fluoroscopic imaging. I then induced the opening reamer, followed by the ball-tip guidewire down to level of the superior pole of the patella. The nail was then measured. I elected to place a 420 mm nail. I then passed a 12.5 mm end-cutting reamer, followed by placement of the nail to an appropriate depth. I then made an accessory lateral incision for placement of the helical blade. An additional 3.2 mm guidepin was advanced centered in the femoral neck on AP and lateral fluoroscopic imaging, advanced to the subchondral bone. It was then measured, reamed, and the 95 mm helical blade was placed in standard fashion. I took fluoroscopic images to confirm no intra-articular penetration of implants. I then proceeded to place two distal interlocking screws using standard perfect sycuan technique. After this was completed, I obtained final fluoroscopic imaging of the knee and hip, confirming adequate placement of all implants and adequate reduction of the proximal femur. At this point, the wounds were thoroughly irrigated with normal saline and closed in layers. The two proximal lateral incisions were closed with buried 2-0 Vicryl suture and prasad. The stab incisions for the distal interlocking screws were closed with prasad. Sterile dressings were applied. This ended the procedure. I was present and scrubbed in for all critical portions of the case. POSTOPERATIVE PLAN: The patient will return to the hospital floor. He will be weightbearing as tolerated to the left lower extremity. He will undergo physical therapy for ambulation with a walker, begin xarelto for DVT prophylaxis on POD1, and he will be discharged by hospitalist service when criteria met. AYDIN
[2019-02-25] MEDS: D5W/0.45% SODIUM CHLORIDE 1,000 ML IV SCH ×2 (11:26→21:07)
[2019-02-25] MEDS: traMADol 50 MG TAB PO PRN (16:20)
[2019-02-25] MEDS: RIVAROXABAN 10 MG TAB (XARELTO) PO SCH (17:37)
[2019-02-25] MEDS: DIGOXIN 0.125 MG TAB PO SCH (20:33)
[2019-02-26] VITALS (12 sets, daily range): BP systolic 98–120; BP diastolic 56–65
[2019-02-26] MEDS: ACETAMINOPHEN TAB 650MG DOSE (2X325MG) PO PRN (01:25)
[2019-02-26 06:43] LABS: HEMATOCRIT 19.8 % (42.0-52.0); MEAN CORPUSCULAR HEMOGLOBIN 38.3 pg (27.0-33.0); MEAN CORPUSCULAR HGB CONC 34.8 g/dl (32.0-36.5); WHITE BLOOD COUNT 4.9 10^3/uL (4.0-10.0)
[2019-02-26 07:11] LABS: HEMOGLOBIN 6.9 g/dl (13.5-17.5); PLATELET COUNT, AUTOMATED 83 10^3/uL (150-450)
[2019-02-26] MEDS: FOLIC ACID 1 MG TAB PO SCH (08:18)
[2019-02-26] MEDS: MORPHINE 30 MG SA TAB PO SCH (08:18)
[2019-02-26] MEDS: MAGNESIUM OXIDE 400 MG TAB (MAG-OX) PO SCH ×2 (08:18→20:51)
[2019-02-26] MEDS: THIAMINE 100 MG TAB PO SCH (08:19)
[2019-02-26] MEDS: MOM 30ML SUSPENSION UDC PO SCH (08:19)
[2019-02-26] MEDS: MULTIVITAMINS/MINERALS THERAP 1 TAB PO SCH (08:19)
[2019-02-26] MEDS: MIRALAX *UNIT DOSE* 17GM PACKET PO SCH (08:19)
[2019-02-26] MEDS: METOCLOPRAMIDE 10 MG TAB PO SCH (08:19)
[2019-02-26] MEDS: METOPROLOL TART 50 MG TAB PO SCH (08:20)
[2019-02-26] MEDS ORDERED: D5W/0.45% SODIUM CHLORIDE 1,000 ML IV SCH (12:35)
[2019-02-26] MEDS ORDERED: traMADol 50 MG TAB PO PRN (12:45)
[2019-02-26] MEDS ORDERED: MORPHINE 10 MG/ML 1ML VIAL (J2270) IV PRN (12:45)
[2019-02-26] MEDS: oxyCODONE 20 MG CR TAB PO SCH ×2 (14:16→20:52)
[2019-02-26] MEDS ORDERED: MORPHINE 30 MG SA TAB PO PRN (14:30)
--- NOTE | 2019-02-26 14:46 | IPNPDOC ---
Text Note Date of Service The patient was seen on 02/26/19. 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 In the ER, patient was found to have a left hip fracture was admitted to hospital service for further evaluation, treatment. Patient was seen and examined at the bedside. Currently reports that he feels relatively fine. He denies any chest pain, shortness of breath, palpitations. Denies nausea, vomiting, as well as transabdominal pain. Denies consultation in her diarrhea. Denies any change in the color or stool. Denies any blood in his stool or urine. Objective: Vitals (See below) General: Lying in bed, no acute distress, comfortable, AAOx3 HEENT: Mandibular surgery noted CVS: RRR, +S1S2 Lungs: Fair air entry b/l, -w/r/r Abdomen: Soft, ND, NT Extremities: - Edema, - Calf tenderness Assessment and plan: Left hip fracture - s/p ORIF (02/24/19) - pain management, PT and anticoagulation as per Orthopedic team Afib with RVR - Patient continues to experience episodes of uncontrolled rate - Continue with digoxin - Will adjust metoprolol and spread out frequency - Continue with full evaluation with Xarelto (re: Hip fracture); as an outpatient patient is only on ASA Alcohol abuse/ alcoholic - Currently has no withdrawal symptoms - c/w Thiamine and Folate - c/w [facility] Protocol Jaw cancer s/p surgery and reconstruction in 2012 - Patient experiences chronic pain - Will adjust long acting pain medications after verifying with outpatient pharmacy DVT prophylaxis - on full anticoagulation with Xarelto VS,Fishbone, I+O VS, Fishbone, I+O Laboratory Tests 02/26/19 06:13 Red Blood Count 1.80 L, Mean Corpuscular Volume 110.0 H, Mean Corpuscular Hemoglobin 38.3 H, Mean Corpuscular Hemoglobin Concent 34.8, Red Cell Distribution Width 12.5 Vital Signs Date Time Temp Pulse Resp B/P (MAP) Pulse Ox O2 Delivery O2 Flow Rate FiO2 02/26/19 14:16 98.7 121 16 102/60 99 2.0 02/23/19 03:35 Room Air I&O- Last 24 Hours up to 6 AM 02/26/19 06:00 Intake Total 2510 ml Output Total 800 ml Balance 1710 ml MATHIEU ALLISON MD Feb 26, 2019 14:46
[2019-02-26] MEDS: traMADol 50 MG TAB PO PRN (15:45)
[2019-02-26] MEDS: METOPROLOL TART 25 MG TABLET PO SCH ×4 (15:46→23:34)
[2019-02-26] MEDS: DIGOXIN 0.125 MG TAB PO SCH (20:51)
[2019-02-26] MEDS: RIVAROXABAN 10 MG TAB (XARELTO) PO SCH (20:53)
[2019-02-26 21:12] LABS: HEMATOCRIT 27.9 % (42.0-52.0); HEMOGLOBIN 9.7 g/dl (13.5-17.5); MEAN CORPUSCULAR HGB CONC 34.8 g/dl (32.0-36.5); MEAN CORPUSCULAR VOLUME 100.7 fl (80.0-96.0); PLATELET COUNT, AUTOMATED 96 10^3/uL (150-450); RED BLOOD COUNT 2.77 10^6/uL (4.30-6.10); WHITE BLOOD COUNT 5.2 10^3/uL (4.0-10.0)
[2019-02-26] MEDS: MORPHINE 30 MG SA TAB PO PRN (23:35)
[2019-02-27] VITALS (7 sets, daily range): BP systolic 88–103; BP diastolic 59–64
[2019-02-27] MEDS: METOPROLOL TART 25 MG TABLET PO SCH ×3 (06:14→17:17)
[2019-02-27] MEDS: traMADol 50 MG TAB PO PRN ×2 (06:14→23:26)
[2019-02-27] MEDS: MULTIVITAMINS/MINERALS THERAP 1 TAB PO SCH (08:38)
[2019-02-27] MEDS: METOCLOPRAMIDE 10 MG TAB PO SCH (08:38)
[2019-02-27] MEDS: FOLIC ACID 1 MG TAB PO SCH (08:38)
[2019-02-27] MEDS: MIRALAX *UNIT DOSE* 17GM PACKET PO SCH (08:39)
[2019-02-27] MEDS: MOM 30ML SUSPENSION UDC PO SCH (08:39)
[2019-02-27] MEDS: MAGNESIUM OXIDE 400 MG TAB (MAG-OX) PO SCH ×2 (08:39→20:56)
[2019-02-27] MEDS: oxyCODONE 20 MG CR TAB PO SCH ×2 (08:39→20:56)
[2019-02-27 09:12] LABS: HEMATOCRIT 25.9 % (42.0-52.0); HEMOGLOBIN 9.3 g/dl (13.5-17.5); MEAN CORPUSCULAR HGB CONC 35.9 g/dl (32.0-36.5); MEAN CORPUSCULAR VOLUME 100.4 fl (80.0-96.0); PLATELET COUNT, AUTOMATED 101 10^3/uL (150-450); RED BLOOD COUNT 2.58 10^6/uL (4.30-6.10); WHITE BLOOD COUNT 4.4 10^3/uL (4.0-10.0)
[2019-02-27 09:32] LABS: BLOOD UREA NITROGEN 5 MG/DL (7-18); CALCIUM LEVEL 7.6 MG/DL (8.5-10.1); CARBON DIOXIDE LEVEL 32 MEQ/L (21-32); CHLORIDE LEVEL 99 MEQ/L (98-107); CREATININE FOR GFR 0.33 MG/DL (0.70-1.30); GLOMERULAR FILTRATION RATE > 60.0 (>56); GLUCOSE, FASTING 86 MG/DL (70-100); MAGNESIUM LEVEL 1.8 MG/DL (1.8-2.4); POTASSIUM SERUM 3.7 MEQ/L (3.5-5.1); SODIUM LEVEL 134 MEQ/L (136-145)
--- NOTE | 2019-02-27 11:47 | IPNPDOC ---
Text Note Date of Service The patient was seen on 02/27/19. 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 In the ER, patient was found to have a left hip fracture was admitted to hospital service for further evaluation, treatment. Patient was seen and examined at the bedside. Patient reports that he's no longer expressing any lightheadedness or dizziness. He will be working with physical therapy today. Denies chest pain churns of breath or palpitations. Still reports hip ache and generalized weakness. Objective: Vitals (See below) General: Lying in bed, no acute distress, comfortable, AAOx3 HEENT: Mandibular surgery noted CVS: RRR, +S1S2 Lungs: No auscultated wheezing, rhonchi, rales Abdomen: Soft, ND, non-tender Extremities: No evidence of edema, - Calf tenderness Assessment and plan: Left hip fracture - s/p ORIF (02/24/19) - pain management, PT and anticoagulation as per Orthopedic team - Patient will be continuing with physical therapy today A. fib with RVR - s/p Episode of uncontrolled rate - Continue with digoxin - c/w metoprolol at adjusted frequency - Continue with full evaluation with Xarelto (re: Hip fracture); as an outpatient patient is only on ASA Alcohol abuse/ alcoholic - Currently has no withdrawal symptoms - c/w Thiamine and Folate - c/w [facility] Protocol Jaw cancer s/p surgery and reconstruction in 2012 - Patient experiences chronic pain - c/w Oxycodone and Morphine long acting forms DVT prophylaxis - on full anticoagulation with Xarelto Disposition: - Possible transition to ARU VS,Fishbone, I+O VS, Fishbone, I+O Laboratory Tests 02/26/19 20:52 Red Blood Count 2.77 L, Mean Corpuscular Volume 100.7 H, Mean Corpuscular Hemog lobin 35.0 H, Mean Corpuscular Hemoglobin Concent 34.8, Red Cell Distribution Width 18.6 H 02/27/19 08:41 Red Blood Count 2.58 L, Mean Corpuscular Volume 100.4 H, Mean Corpuscular Hemoglobin 36.0 H, Mean Corpuscular Hemoglobin Concent 35.9, Red Cell Distribution Width 18.6 H, Calcium Level 7.6 L Vital Signs Date Time Temp Pulse Resp B/P (MAP) Pulse Ox O2 Delivery O2 Flow Rate FiO2 02/27/19 08:39 18 02/27/19 06:14 76 101/63 02/27/19 06:00 98.0 97 02/26/19 16:15 2.0 02/23/19 03:35 Room Air I&O- Last 24 Hours up to 6 AM 02/27/19 06:00 Intake Total 1280 ml Output Total 1325 ml Balance -45 ml MATHIEU ALLISON MD Feb 27, 2019 11:47
[2019-02-27] MEDS ORDERED: NS 500 ML IV SCH (15:00)
[2019-02-27] MEDS ORDERED: NS 500 ML IV ONE (15:00)
[2019-02-27] MEDS: RIVAROXABAN 10 MG TAB (XARELTO) PO SCH (17:31)
[2019-02-27 17:50] LABS: HEMATOCRIT 27.9 % (42.0-52.0)
[2019-02-27] MEDS ORDERED: METOPROLOL TART 12.5 MG PER 1/2 TAB PO ONE (18:00)
[2019-02-27] MEDS: MORPHINE 30 MG SA TAB PO PRN (18:32)
[2019-02-27] MEDS: DIGOXIN 0.125 MG TAB PO SCH (20:57)
[2019-02-28] MEDS: ONDANSETRON 4MG/2ML VIAL (J2405) IV PRN ×2 (00:48→09:02)
[2019-02-28 06:00] VITALS: BP 113/69
[2019-02-28] MEDS: METOPROLOL TART 25 MG TABLET PO SCH ×2 (06:21→12:05)
[2019-02-28] MEDS: traMADol 50 MG TAB PO PRN (06:22)
[2019-02-28 06:34] LABS: BASO % 0.4 % (0.0-1.0); EOS # 0.2 10^3/uL (0.0-0.50); EOS % 3.7 % (0.0-3.0); HEMATOCRIT 33.8 % (42.0-52.0); HEMOGLOBIN 11.8 g/dl (13.5-17.5); LYMPH # 0.5 10^3/uL (1.5-4.5); LYMPH % 11.1 % (24.0-44.0); MEAN CORPUSCULAR HGB CONC 34.9 g/dl (32.0-36.5); MEAN CORPUSCULAR VOLUME 97.4 fl (80.0-96.0); MONO # 1.1 10^3/uL (0.0-0.8); NEUTROPHILS # 2.8 10^3/uL (1.8-7.7); NEUTROPHILS % 61.6 % (36.0-66.0); PLATELET COUNT, AUTOMATED 127 10^3/uL (150-450); RED BLOOD COUNT 3.47 10^6/uL (4.30-6.10); WHITE BLOOD COUNT 4.6 10^3/uL (4.0-10.0)
[2019-02-28 06:35] VITALS: BP 113/69
[2019-02-28 06:47] LABS: BLOOD UREA NITROGEN 5 MG/DL (7-18); CALCIUM LEVEL 7.6 MG/DL (8.5-10.1); CARBON DIOXIDE LEVEL 33 MEQ/L (21-32); CHLORIDE LEVEL 101 MEQ/L (98-107); CREATININE FOR GFR 0.33 MG/DL (0.70-1.30); GLOMERULAR FILTRATION RATE > 60.0 (>56); GLUCOSE, FASTING 94 MG/DL (70-100); MAGNESIUM LEVEL 1.8 MG/DL (1.8-2.4); POTASSIUM SERUM 3.5 MEQ/L (3.5-5.1); SODIUM LEVEL 136 MEQ/L (136-145)
[2019-02-28] MEDS: MOM 30ML SUSPENSION UDC PO SCH ×2 (09:00→09:02)
[2019-02-28] MEDS: MIRALAX *UNIT DOSE* 17GM PACKET PO SCH ×2 (09:00→09:02)
[2019-02-28] MEDS: oxyCODONE 20 MG CR TAB PO SCH (09:03)
[2019-02-28] MEDS: METOCLOPRAMIDE 10 MG TAB PO SCH (09:03)
[2019-02-28] MEDS: MULTIVITAMINS/MINERALS THERAP 1 TAB PO SCH (09:03)
[2019-02-28] MEDS: FOLIC ACID 1 MG TAB PO SCH (09:03)
[2019-02-28] MEDS: MAGNESIUM OXIDE 400 MG TAB (MAG-OX) PO SCH (09:03)
[2019-02-28 09:10] VITALS: BP_SYST 125; BP_DIAS 7; BP_DIAS 75
[2019-02-28] MEDS ORDERED: METO1TAB87 PO (11:08)
[2019-02-28] MEDS ORDERED: TRAM50TA2 PO (11:08)
[2019-02-28] MEDS ORDERED: XARE10TA PO (11:08)
[2019-02-28] MEDS ORDERED: FOLI1TAB11 PO (11:08)
[2019-02-28] MEDS: ACETAMINOPHEN TAB 650MG DOSE (2X325MG) PO PRN (12:02)
[2019-02-28 12:05] VITALS: BP 104/72
--- NOTE | 2019-02-28 12:20 | DS.PDOC ---
Discharge Summary General Date of Admission Feb 23, 2019 at 03:03 Date of Discharge 02/28/2019 Discharge Summary PROCEDURES PERFORMED DURING STAY: Left proximal femur closed reduction and cephalomedullary nail fixation with Dr. Kenji Sims on 02/24/2019 ADMITTING DIAGNOSES / DISCHARGE DIAGNOSES: Left hip fracture - s/p ORIF (02/24/19) A. fib with RVR Symptomatic anemia - possibly 2/2 blood loss 2/2 surgical procedure Thrombocytopenia Alcohol abuse/ alcoholic Jaw cancer s/p surgery and reconstruction in 2012 DVT prophylaxis COMPLICATIONS/CHIEF COMPLAINT: Left hip pain HISTORY OF PRESENT ILLNESS: Patient sits 58-year-old female with past medical history of Atrial fibrillation (on ASA), Jaw CA s/p surgery and radiation and extensive reconstruction in 2012, chronic pain who presented to ER with complaints of left hip pain after he fell at home. In the ER, patient was found to have a left hip fracture was admitted to hospital service for further evaluation, treatment. HOSPITAL COURSE: Left hip fracture - s/p ORIF (02/24/19) - pain management, PT and anticoagulation as per Orthopedic team - Patient will be continuing with physical therapy today A. fib with RVR - s/p Episode of uncontrolled rate - Continue with digoxin - c/w metoprolol at adjusted frequency; will adjust this to BID dosing upon transfer to ARU - Continue with full evaluation with Xarelto (re: Hip fracture); as an outpatient patient is only on ASA Symptomatic anemia - possibly 2/2 blood loss 2/2 surgical procedure - Patient had a an acute drop in H&H after surgical intervention - Denies any change in the color of his stool, denies any acute bleeding - Had reported light-headedness - s/p 4 units PRBC - Hg has improved appropriately Thrombocytopenia - improving - will continue to monitor Alcohol abuse/ alcoholic - Currently has no withdrawal symptoms - c/w Thiamine and Folate - Will DC [facility] Protocol Jaw cancer s/p surgery and reconstruction in 2012 - Patient experiences chronic pain - c/w Oxycodone and Morphine long acting forms - c/w Tramadol PRN DVT prophylaxis - on full anticoagulation with Xarelto DISCHARGE MEDICATIONS: Please see below. ALLERGIES: Please see below. PHYSICAL EXAMINATION ON DISCHARGE: Vitals (See below) General: Lying in bed, no acute distress, comfortable, AAOx3 HEENT: Mandibular surgery noted CVS: +S1S2 Lungs:-w/r/r/ Abdomen: no distention / tenderness, remains soft Extremities: - Edema noted, - Calf tenderness LABORATORY DATA: Please see below. ACTIVITY: [As tolerated]. DISCHARGE PLAN: Transfer to ARU under the care of Dr. Croft DISPOSITION: ARU DISCHARGE CONDITION: [Stable]. TIME SPENT ON DISCHARGE: 37 minutes Vital Signs/I&Os Vital Signs Date Time Temp Pulse Resp B/P (MAP) Pulse Ox O2 Delivery O2 Flow Rate FiO2 02/28/19 12:05 112 104/72 02/28/19 09:03 18 02/28/19 06:00 97.1 95 02/26/19 16:15 2.0 02/23/19 03:35 Room Air I&O- Last 24 Hours up to 6 AM 02/28/19 06:00 Intake Total 1279 ml Output Total 1675 ml Balance -396 ml Laboratory Data Labs 24H Laboratory Tests 2 02/28/19 06:12: Immature Granulocyte % (Auto) 0.2, White Blood Count 4.6, Red Blood Count 3.47L, Hemoglobin 11.8L, Hematocrit 33.8L, Mean Corpuscular Volume 97.4H, Mean Corpuscular Hemoglobin 34.0H, Mean Corpuscular Hemoglobin Concent 34.9, Red Cell Distribution Width 19.0H, Platelet Count 127L, Neutrophils (%) (Auto) 61.6, Lymphocytes (%) (Auto) 11.1L, Monocytes (%) (Auto) 23.0H, Eosinophils (%) (Auto) 3.7H, Basophils (%) (Auto) 0.4, Neutrophils # (Auto) 2.8, Lymphocytes # (Auto) 0.5L, Monocytes # (Auto) 1.1H, Eosinophils # (Auto) 0.2, Basophils # (Auto) 0.0, Nucleated Red Blood Cells % (auto) 0.0, Anion Gap 2L, Glomerular Filtration Rate > 60.0, Blood Urea Nitrogen 5L, Creatinine 0.33L, Sodium Level 136, Potassium Level 3.5, Chloride Level 101, Carbon Dioxide Level 33H, Calcium Level 7.6L, Magnesium Level 1.8 CBC/BMP Laboratory Tests 02/27/19 17:26 02/28/19 06:12 Red Blood Count 3.47 L, Mean Corpuscular Volume 97.4 H, Mean Corpuscular Hemoglobin 34.0 H, Mean Corpuscular Hemoglobin Concent 34.9, Red Cell Distribution Width 19.0 H, Neutrophils (%) (Auto) 61.6, Lymphocytes (%) (Auto) 11.1 L, Monocytes (%) (Auto) 23.0 H, Eosinophils (%) (Auto) 3.7 H, Basophils (%) (Auto) 0.4, Neutrophils # (Auto) 2.8, Lymphocytes # (Auto) 0.5 L, Monocytes # (Auto) 1.1 H, Eosinophils # (Auto) 0.2, Basophils # (Auto) 0.0, Calcium Level 7.6 L Microbiology Microbiology 02/26/19 Stool Occult Blood (NAT) - Final, Complete Discharge Medications Scheduled Digoxin (Digoxin) 125 Mcg Tablet, 125 MCG PO QHS, (Reported) Esomeprazole Magnesium (Esomeprazole Magnesium) 40 Mg Capsule.dr, 40 MG PO DAILY, (Reported) Folic Acid (Folic Acid) 1 Mg Tablet, 1 MG PO DAILY Magnesium Oxide (Magnesium Oxide) 400 Mg Tablet, 400 MG PO BID, (Reported) Metoclopramide HCl (Metoclopramide HCl) 10 Mg Tablet, 10 MG PO DAILY, (Reported) Metoprolol Tartrate (Metoprolol Tartrate) 25 Mg Tablet, 1 TAB PO BID Morphine Sulfate (Morphine Sulfate ER) 30 Mg Tablet.er, 30 MG PO BID, (Reported) Oxycodone HCl (Oxycontin) 20 Mg Tab.er.12h, 20 MG PO Q12H, (Reported) Potassium Phosphate Monobasic (K-Phos Original) 500 Mg Tablet.julissa, 500 MG PO BID, (Reported) UNABLE TO VERIFY THIS MEDICATION UNTIL THE PHARMACY OPENS MONDAY Rivaroxaban (Xarelto) 10 Mg Tablet, 10 MG PO DAILY@18 Scheduled PRN Tramadol HCl (Tramadol HCl) 50 Mg Tablet, 1-2 TAB PO Q6HP PRN for pain Allergies Coded Allergies: No Known Allergies (Verified , 09/08/04) MATHIEU ALLISON MD Feb 28, 2019 12:20
== END 2019-02-28 14:08 | DRG 482 ==
LOC: M ED 00:24 → M ED INP 03:03 → M MSPAV 03:54 → M PCU 02-24 23:55 → M MSPAV 02-26 17:42
PROVIDERS: ADMIT Hospitalist; ATTEND Internal Medicine
PROC: 0QS704Z Reposition Left Upper Femur with Internal Fixation Device, Open Approach (ICD-10-PCS; principal; 2019-02-24 08:00)
DX: S72.142A Displaced intertrochanteric fracture of left femur, initial encounter for closed fracture (principal); I48.2 Chronic atrial fibrillation; W01.0XXA Fall on same level from slipping, tripping and stumbling without subsequent striking against object, initial encounter; Y92.009 Unspecified place in unspecified non-institutional (private) residence as the place of occurrence of the external cause; F10.20 Alcohol dependence, uncomplicated; Z85.818 Personal history of malignant neoplasm of other sites of lip, oral cavity, and pharynx

== ENCOUNTER 2019-02-28 09:54 | Inpatient (IN) | payer OTHER ==
[~2019-02-28] VITALS: Ht 182.9 cm; Wt 57.3 kg
[~2019-02-28 09:54] MED LIST changes: +ASPI81CH33 PO; +DIGO0.12; +ESOM1CAP5 PO; +MAG-400T7 PO; +METO10TA2 PO; +MORP30TASA PO; +OXYC20TA40 PO; +POTA50TAB PO
[2019-02-28] MEDS ORDERED: MOM 30ML SUSPENSION UDC PO PRN (11:00)
[2019-02-28] MEDS ORDERED: BISACODYL 10 MG SUPP PR PRN (11:00)
[2019-02-28] MEDS ORDERED: oxyCODONE 5MG TAB PO PRN (11:00)
[2019-02-28] MEDS ORDERED: METO1TAB87 PO (11:08)
[2019-02-28] MEDS ORDERED: TRAM50TA2 PO (11:08)
[2019-02-28] MEDS ORDERED: XARE10TA PO (11:08)
[2019-02-28] MEDS ORDERED: FOLI1TAB11 PO (11:08)
[2019-02-28 14:15] VITALS: BP 102/60
[2019-02-28] MEDS ORDERED: ONDANSETRON 4 MG TAB (S0181) PO PRN (15:00)
[2019-02-28] MEDS: PANTOPRAZOLE 40MG TAB (PROTONIX) PO SCH (15:50)
[2019-02-28] MEDS: GABAPENTIN 100 MG CAP PO SCH ×2 (15:50→20:43)
[2019-02-28 17:13] VITALS: BP 111/69
[2019-02-28] MEDS: METOPROLOL TART 12.5 MG PER 1/2 TAB PO SCH ×2 (17:17→23:24)
--- NOTE | 2019-02-28 17:49 | HPEPDOC ---
General Office Worker Note DATE OF ADMISSION: Feb 28, 2019 at 14:15 SOURCE OF ADMISSION INFORMATION: [facility] records and patient CHIEF COMPLAINT: left hip fracture HISTORY OF PRESENT ILLNESS: 58M pmh Afib, jaw cancer s/p radiation surgery, chronic pain on opioids, chronic ETOH use who fall at home without any pre-syncopal symptoms onto his left side and presented to [facility] ED on 02/23/19 complaining of difficulty walking. EKG showed him to be in Afib and pelvic Xray demonstrated, comminuted intertrochanteric fracture of the proximal left femur, with a separate lesser trochanter fragment. He was cleared by medicine and underwent a closed hip intramedullary nailed on 02/24/19 with significant post-op anemia with a Hgb of 6.9 on 02/26/19 requiring blood transfusions and FOBT found to be negative. Patient was also found to be in Afib with RVR and was monitored closely on telemetry with changes made to his medications. He was watched under the [facility] protocol for signs of alcohol withdrawal for an elevated admission ETOH level. Therapy evaluated him and found he had deficits in mobility and ADLs with intermittent episodes of dizziness in need for IRF level of care and admitted to ARU 02/28/19. REVIEW OF SYSTEMS: The following is a completed review of systems and has been reviewed. Review of systems otherwise unremarkable. PAIN: Patient self reports left hip pain EYES: no recent vision loss EARS, NOSE, & THROAT: denies dysphagia, but difficulty chewing solids CARDIOVASCULAR: denies chest pain or palpitations PULMONARY: Negative. Denies shortness of breath GASTROINTESTINAL: denies constipation/diarrhea GENITOURINARY: no dysuria MUSCULOSKELETAL: left hip fracture NEUROLOGICAL: denies tremor or seizure activity HEMATOLOGICAL: + anemia SKIN: left hip incision and scattered ecchymosis PSYCHIATRIC: Unremarkable All other review of systems found to be negative. PAST MEDICAL HISTORY: as per HPI PAST SURGICAL HISTORY: as per HPI ALLERGIES: Please see below. MEDICATIONS: Please see below. SOCIAL HISTORY: lives alone, daily ETOH user, denies smoking or illicit drugs DIET: mechanical soft, low sodium PHYSICAL EXAMINATION: VITAL SIGNS: Please see below. GENERAL: Pleasant and cooperative. No acute distress. thin HEENT: PERRL. Extraocular movements intact. clear conjunctiva CARDIOVASCULAR: Irregular rate and rhythm. No murmurs, rubs, or gallops LUNGS: Clear to auscultation bilaterally. No wheezes. No rhonchi ABDOMEN: Soft, nontender, nondistended. Positive bowel sounds. Normal active bowel sound NEUROLOGICAL: Alert and oriented times three. Cranial nerves II through XII grossly intact. Sensation grossly intact including 1st web space left foot (-) asterixes/tremor EXTREMITIES: 5\5 strength bilateral upper extremities. 5\5 strength right lower extremity. 5/5 strength in left ankle DF and EHL (exam limited due to hip surgery). SKIN: left hip incision with ecchymosis and mild edema, non-tender to palpation IMAGING: Imaging documentation personally reviewed by record FUNCTIONAL STATUS: Premorbid: Independent with all activities of daily life as well as mobility with occasional use of a cane. On Admission: Min-Mod assist for functional transfers, ambulation, toileting, and dressing. GOALS: Mod-I with RW for community distances, stair negotiation, balance training, Mod-I for bathing, dressing, toileting, assess for DMEs, medical optimization. ASSESSMENT:58-year-old M with past medical history of Afib with RVR, ETOH abuse who presents status post fall with left hip fracture PLAN: 1. Rehab: PT, OT, assess for DME needs -goal to strengthen left leg, improve trunk control and upper body strength for safe and effective ambulation with his new gait deficits -Modalities prn - hx of jaw cancer with partial resection, will soften diet 2. Ortho: s/p left hip fracture with nailing- ortho consulted, WBAT 2. Neuro: monitor for delirium tremens, avoid deliriogenic medications, will attempt to taper/wean off short acting opioids -thiamine and folic acid for neuro-supplementation in setting of chronic EOTH use 3. 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 Resp: encourage incentive spirometry 5. GI ppx: protonix, recent FOBT negative 6. DVT ppx: Xarelto 10mg daily 7. : monitor PVRs 8. Heme: anemia most likely from chronic disease and ETOH use, will monitor and transfuse if Hgb <8 9. Skin: change dressing prn soil 10. Pain: c/u oxycontine, will add standing tylenol, and attempt to taper off short acting oxycodone, will start Gabapentin 100 mg ITD 10. Dispo: TBD POST ADMISSION PHYSICIAN EVALUATION: Medical and functional status: Description of medical status, medical a ssessment: As above. Rehabilitation diagnosis and current and prior cold morbid medical conditions as above. Risk of complications and plans to mitigate them as above. Description of functional status current status is as above. Prior status as above. Status compared to preadmission: There are no clinically significant differences between the patient's current status and the information described on the preadmission screening document. Treatment plan anticipated: Treatment plan is as described above. Required disciplines including physical therapy, occupational therapy, others as noted above Intensity of services: 3 hours a day, 6 days a week. Special considerations: There are no specific special or safety considerations that would likely preclude immediate implementation of an intensive rehabilitation program or subsequently influence the plan of care. ATTESTATION: Considering all the information above, it is my best judgment that this patient requires intensive rehabilitation therapy as described above and an inpatient hospital environment due to the complexity of nursing, medical, and rehabilitation needs required by the patient. Furthermore, this patient can reasonably be expected to participate in an benefit from an inpatient rehabilitation stay with an interdisciplinary team approach to the delivery of rehabilitation care under the direction and supervision of rehabilitation physician. PROGNOSIS: Excellent ESTIMATED LENGTH OF STAY:18-21 days. PROJECTED DISCHARGE DESTINATION: [Home with family support and any durable medical equipment required to increase functional safety and mobility]. TIME SPENT COUNSELING AND COORDINATING INITIAL CARE: Greater than minutes. Vital Signs Vital Sign - Last 24 Hours 02/28/19 02/28/19 02/28/19 02/28/19 14:15 15:51 16:21 17:13 Temp 98.1 Pulse 81 85 Resp 18 16 16 B/P (MAP) 102/60 (74) 111/69 (83) Pulse Ox 97 02/28/19 17:17 Pulse 85 B/P (MAP) 111/69 Home Medications Scheduled Digoxin (Digoxin) 125 Mcg Tablet, 125 MCG PO QHS, (Reported) Esomeprazole Magnesium (Esomeprazole Magnesium) 40 Mg Capsule.dr, 40 MG PO DAILY, (Reported) Folic Acid (Folic Acid) 1 Mg Tablet, 1 MG PO DAILY Magnesium Oxide (Magnesium Oxide) 400 Mg Tablet, 400 MG PO BID, (Reported) Metoclopramide HCl (Metoclopramide HCl) 10 Mg Tablet, 10 MG PO DAILY, (Reported) Metoprolol Tartrate (Metoprolol Tartrate) 25 Mg Tablet, 1 TAB PO BID Morphine Sulfate (Morphine Sulfate ER) 30 Mg Tablet.er, 30 MG PO BID, (Reported) Oxycodone HCl (Oxycontin) 20 Mg Tab.er.12h, 20 MG PO Q12H, (Reported) Potassium Phosphate Monobasic (K-Phos Original) 500 Mg Tablet.julissa, 500 MG PO BID, (Reported) UNABLE TO VERIFY THIS MEDICATION UNTIL THE PHARMACY OPENS MONDAY Rivaroxaban (Xarelto) 10 Mg Tablet, 10 MG PO DAILY@18 Scheduled PRN Tramadol HCl (Tramadol HCl) 50 Mg Tablet, 1-2 TAB PO Q6HP PRN for pain Allergies Coded Allergies: No Known Allergies (Verified , 09/08/04) A-FIB/CHADSVASC A-FIB History Current/History of A-Fib/PAF?: Yes Current PO Anticoag Therapy: Yes MARI NARANJO MD Feb 28, 2019 17:49
[2019-02-28 20:00] VITALS: BP 133/80
[2019-02-28] MEDS: MAGNESIUM OXIDE 400 MG TAB (MAG-OX) PO SCH (20:42)
[2019-02-28] MEDS: oxyCODONE 20 MG CR TAB PO SCH (20:42)
[2019-02-28] MEDS: DOCUSATE SODIUM 100 MG CAP PO SCH (20:43)
[2019-02-28] MEDS: ACETAMINOPHEN 500 MG TAB PO SCH (20:43)
[2019-02-28] MEDS: SENNA 8.6 MG TAB (SENOKOT) PO SCH (20:45)
[2019-03-01] MEDS: METOPROLOL TART 12.5 MG PER 1/2 TAB PO SCH ×3 (05:35→17:16)
[2019-03-01 05:59] VITALS: BP 108/60
[2019-03-01 07:29] LABS: BASO # 0.1 10^3/uL (0.0-0.2); BASO % 0.8 % (0.0-1.0); EOS # 0.2 10^3/uL (0.0-0.50); EOS % 3.4 % (0.0-3.0); HEMATOCRIT 34.7 % (42.0-52.0); HEMOGLOBIN 12.1 g/dl (13.5-17.5); LYMPH # 0.6 10^3/uL (1.5-4.5); LYMPH % 9.8 % (24.0-44.0); MEAN CORPUSCULAR HEMOGLOBIN 34.5 pg (27.0-33.0); MEAN CORPUSCULAR HGB CONC 34.9 g/dl (32.0-36.5); MEAN CORPUSCULAR VOLUME 98.9 fl (80.0-96.0); MONO # 1.1 10^3/uL (0.0-0.8); MONO % 16.7 % (0.0-5.0); NEUTROPHILS # 4.4 10^3/uL (1.8-7.7); NEUTROPHILS % 68.8 % (36.0-66.0); PLATELET COUNT, AUTOMATED 164 10^3/uL (150-450); RED BLOOD COUNT 3.51 10^6/uL (4.30-6.10); WHITE BLOOD COUNT 6.5 10^3/uL (4.0-10.0)
[2019-03-01 07:54] LABS: ALBUMIN 1.6 GM/DL (3.2-5.2); ALT/SGPT 21 U/L (12-78); BLOOD UREA NITROGEN 5 MG/DL (7-18); CALCIUM LEVEL 7.7 MG/DL (8.5-10.1); CARBON DIOXIDE LEVEL 30 MEQ/L (21-32); CHLORIDE LEVEL 103 MEQ/L (98-107); CREATININE FOR GFR 0.44 MG/DL (0.70-1.30); GLOMERULAR FILTRATION RATE > 60.0 (>56); GLUCOSE, FASTING 105 MG/DL (70-100); POTASSIUM SERUM 3.5 MEQ/L (3.5-5.1); SODIUM LEVEL 138 MEQ/L (136-145); TOTAL PROTEIN 4.4 GM/DL (6.4-8.2)
[2019-03-01] MEDS: PANTOPRAZOLE 40MG TAB (PROTONIX) PO SCH (08:17)
[2019-03-01] MEDS: THIAMINE 100 MG TAB PO SCH (08:17)
[2019-03-01] MEDS: FOLIC ACID 1 MG TAB PO SCH (08:17)
[2019-03-01] MEDS: MAGNESIUM OXIDE 400 MG TAB (MAG-OX) PO SCH ×2 (08:17→21:09)
[2019-03-01] MEDS: GABAPENTIN 100 MG CAP PO SCH ×3 (08:17→21:09)
[2019-03-01] MEDS: oxyCODONE 20 MG CR TAB PO SCH ×2 (08:18→21:12)
[2019-03-01] MEDS: DOCUSATE SODIUM 100 MG CAP PO SCH ×2 (08:18→21:00)
[2019-03-01] MEDS: ACETAMINOPHEN 500 MG TAB PO SCH ×3 (08:18→21:10)
[2019-03-01] MEDS: METOCLOPRAMIDE 10 MG TAB PO SCH (08:18)
[2019-03-01] MEDS ORDERED: ACETAMINOPHEN TAB 650MG DOSE (2X325MG) PO PRN (12:00)
--- NOTE | 2019-03-01 12:59 | IPNPDOC ---
PM&R Progress Note DATE OF SERVICE: Mar 01, 2019 Metallurgical Inspector Progress Note Subjective: PAtient seen in OT stating he slept well and was dizzy this morning after taking his oxycodone. He agreed to stop taking the short acting. REVIEW OF SYSTEMS: The following is a completed review of systems and has been reviewed. Review of systems otherwise unremarkable. PAIN: Patient self reports left hip pain EYES: no recent vision loss EARS, NOSE, & THROAT: denies dysphagia, but difficulty chewing solids CARDIOVASCULAR: denies chest pain or palpitations PULMONARY: Negative. Denies shortness of breath GASTROINTESTINAL: denies constipation/diarrhea GENITOURINARY: no dysuria MUSCULOSKELETAL: left hip fracture NEUROLOGICAL: denies tremor or seizure activity HEMATOLOGICAL: + anemia SKIN: left hip incision and scattered ecchymosis PSYCHIATRIC: Unremarkable All other review of systems found to be negative. PHYSICAL EXAMINATION: VITAL SIGNS: Please see below. GENERAL: Pleasant and cooperative. No acute distress. thin HEENT: PERRL. Extraocular movements intact. clear conjunctiva CARDIOVASCULAR: Irregular rate and rhythm. No murmurs, rubs, or gallops LUNGS: Clear to auscultation bilaterally. No wheezes. No rhonchi ABDOMEN: Soft, nontender, nondistended. Positive bowel sounds. Normal active bowel sound NEUROLOGICAL: Alert and oriented times three. Cranial nerves II through XII grossly intact. Sensation grossly intact including 1st web space left foot (-) asterixes/tremor EXTREMITIES: 5\5 strength bilateral upper extremities. 5\5 strength right lower extremity. 5/5 strength in left ankle DF and EHL (exam limited due to hip surgery). SKIN: left hip incision with ecchymosis and mild edema, non-tender to palpation ASSESSMENT:58-year-old M with past medical history of Afib with RVR, ETOH abuse who presents status post fall with left hip fracture PLAN: 1. Rehab: PT, OT, assess for DME needs -goal to strengthen left leg, improve trunk control and upper body strength for safe and effective ambulation with his new gait deficits -Modalities prn - hx of jaw cancer with partial resection, will soften diet 2. Ortho: s/p left hip fracture with nailing- ortho consulted, WBAT 2. Neuro: monitor for delirium tremens, avoid deliriogenic medications, will attempt to taper/wean off short acting opioids -thiamine and folic acid for neuro-supplementation in setting of chronic EOTH use 3. 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 Resp: encourage incentive spirometry 5. GI ppx: protonix, recent FOBT negative 6. DVT ppx: Xarelto 10mg daily 7. : monitor PVRs 8. Heme: anemia most likely from chronic disease and ETOH use, will monitor and transfuse if Hgb <8 9. Skin: change dressing prn soil 10. Pain: c/u oxycontine, c/u standing tylenol, and attempt to taper off short acting oxycodone, c/uGabapentin 100 mg ITD 10. Dispo: TBD Allergies Coded Allergies: No Known Allergies (Verified , 09/08/04) Vital Signs Vital Signs Date Time Temp Pulse Resp B/P (MAP) Pulse Ox O2 Delivery O2 Flow Rate FiO2 03/01/19 11:45 102/78 03/01/19 08:18 18 03/01/19 06:00 98.3 101 98 Laboratory Data CBC/BMP Laboratory Tests 03/01/19 07:15 Red Blood Count 3.51 L, Mean Corpuscular Volume 98.9 H, Mean Corpuscular Hemoglobin 34.5 H, Mean Corpuscular Hemoglobin Concent 34.9, Red Cell Distribution Width 18.9 H, Neutrophils (%) (Auto) 68.8 H, Lymphocytes (%) (Auto) 9.8 L, Monocytes (%) (Auto) 16.7 H, Eosinophils (%) (Auto) 3.4 H, Basophils (%) (Auto) 0.8, Neutrophils # (Auto) 4.4, Lymphocytes # (Auto) 0.6 L, Monocytes # (Auto) 1.1 H, Eosinophils # (Auto) 0.2, Basophils # (Auto) 0.1, Calcium Level 7.7 L, Aspartate Amino Transf (AST/SGOT) 26, Alanine Aminotransferase (ALT/SGPT) 21, Alkaline Phosphatase 131 H, Total Bilirubin 1.0, Total Protein 4.4 L, Albumin 1.6 L Labs 24H Laboratory Tests 2 03/01/19 07:15: Immature Granulocyte % (Auto) 0.5, White Blood Count 6.5, Red Blood Count 3.51L, Hemoglobin 12.1L, Hematocrit 34.7L, Mean Corpuscular Volume 98.9H, Mean Corpuscular Hemoglobin 34.5H, Mean Corpuscular Hemoglobin Concent 34.9, Red Cell Distribution Width 18.9H, Platelet Count 164, Neutrophils (%) (Auto) 68.8H, Lymphocytes (%) (Auto) 9.8L, Monocytes (%) (Auto) 16.7H, Eosinophils (%) (Auto) 3.4H, Basophils (%) (Auto) 0.8, Neutrophils # (Auto) 4.4, Lymphocytes # (Auto) 0.6L, Monocytes # (Auto) 1.1H, Eosinophils # (Auto) 0.2, Basophils # (Auto) 0.1, Nucleated Red Blood Cells % (auto) 0.0, Anion Gap 5L, Glomerular Filtration Rate > 60.0, Blood Urea Nitrogen 5L, Creatinine 0.44L, Sodium Level 138, Potassium Level 3.5, Chloride Level 103, Carbon Dioxide Level 30, Calcium Level 7.7L, Aspartate Amino Transf (AST/SGOT) 26, Alanine Aminotransferase (ALT/SGPT) 21, Alkaline Phosphatase 131H, Total Bilirubin 1.0, Total Protein 4.4L, Albumin 1.6L, Albumin/Globulin Ratio 0.57L Current Medications Current Medications Current Medications Acetaminophen (Tylenol Tab) 650 mg DAILY PRN PO pain Last administered on 03/01/19at 12:02; Start 03/01/19 at 12:00 Acetaminophen (Tylenol Tab) 1,000 mg TID PO Last administered on 03/01/19at 08:18; Start 02/28/19 at 21:00 Bisacodyl (Dulcolax Suppository) 10 mg DAILYPRN PRN [place] CONSTIPATION; Start 02/28/19 at 11:00 Digoxin (Lanoxin) 0.125 mg DAILY@2100 PO ; Start 03/01/19 at 21:00 Docusate Sodium (Colace) 100 mg BID PO Last administered on 02/28/19at 20:43; Start 02/28/19 at 21:00 Folic Acid (Folic Acid) 1 mg DAILY PO Last administered on 03/01/19 08:17; Start 03/01/19 at 09:00 Gabapentin (Neurontin) 100 mg TID PO Last administered on 03/01/19 08:17; Start 02/28/19 at 16:00 Magnesium Hydroxide (Milk Of Magnesia) 30 ml DAILYPRN PRN PO CONSTIPATION; Start 02/28/19 at 11:00 Magnesium Oxide (Mag-Ox) 400 mg BID PO Last administered on 03/01/19 08:17; Start 02/28/19 at 21:00 Metoclopramide HCl (Reglan) 10 mg DAILY PO Last administered on 03/01/19 08:18; Start 03/01/19 at 09:00 Metoprolol Tartrate (Lopressor) 12.5 mg Q6H PO Last administered on 02/28/19 17:17; Start 02/28/19 at 18:00 Ondansetron HCl (Zofran) 4 mg Q6HP PRN PO NAUSEA; Start 02/28/19 at 15:00 Oxycodone HCl (OxyCONTIN) 20 mg BID PO Last administered on 03/01/19at 08:18; S tart 02/28/19 at 21:00 Oxycodone HCl (Roxicodone, Oxyir) 5 mg Q6HP PRN PO PAIN Last administered on 02/28/19at 15:51; Start 02/28/19 at 11:00; Stop 03/01/19 at 11:52; Status DC Pantoprazole Sodium (Protonix) 40 mg DAILY PO Last administered on 03/01/19 08:17; Start 02/28/19 at 09:00 Rivaroxaban (Xarelto) 10 mg DAILY@1800 PO ; Start 03/01/19 at 18:00; Stop 04/02/19 at 23:55 Senna (Senokot) 1 tab QHS PO ; Start 02/28/19 at 21:00 Thiamine HCl (Thiamine HCl) 100 mg DAILY PO Last administered on 03/01/19at 08:17; Start 03/01/19 at 09:00 MARI NARANJO MD Mar 01, 2019 12:59
[2019-03-01 14:00] VITALS: BP 98/54
--- NOTE | 2019-03-01 15:44 | CR ---
DATE OF CONSULTATION: 03/01/2019 PRIMARY CARE PROVIDER: Layton Olguin MD, [facility]. HISTORY: Patient is a 58-year-old recently fell and fractured his left hip. He is in acute rehabilitation unit after ORIF. PAST MEDICAL HISTORY: Chronic atrial fibrillation. Jaw cancer, underwent surgery and radiation therapy with mandibular deformity secondary to this. Has chronic pain and chronic narcotic therapy. SOCIAL HISTORY: Nonsmoker. Drinks on weekends. 6 beers on weekends. Lives alone. PAST SURGICAL HISTORY: Jaw and mandibular resection and reconstruction. ALLERGIES: None known. REVIEW OF SYSTEMS: No chest pain, shortness of breath, dyspnea on exertion. CURRENT MEDICATIONS: - Lopressor 12.5 mg every 6 hours - Tylenol as needed - digoxin 0.125 mg by mouth daily - Xarelto 10 mg daily PHYSICAL EXAMINATION: 98/54, pulse 97, respiratory rate 18, oxygen saturation 95%. General appearance: Resting in bed, no apparent distress. HEENT: Unremarkable. Left sided jaw deformity which is old. LUNGS: Clear. HEART: Regular rate and rhythm. Rate around 70. ABDOMEN: Soft, nontender. No masses. EXTREMITIES: Trace peripheral edema. LABS: White count 6.5, hemoglobin 12.1, platelets 164, sodium 138, potassium 3.5, BUN 5, creatinine 0.4, glucose 105. IMPRESSION: 1. Atrial fibrillation. His rate is controlled. His blood pressures have been borderline. He had some hypotensive episodes with dizziness and occupational therapy (OT) this morning, probably from short acting analgesics. He is back in bed now. He is on digoxin and metoprolol. His current dose of Xarelto is for deep venous thrombosis (DVT) prophylaxis. He does not take the Xarelto at home or any other anticoagulant for atrial fibrillation. He was on aspirin instead. 2. Chronic alcohol use. He has received thiamine and folic acid. He shows no signs of withdrawal. Hospitalist group will follow him medically over the weekend. The case was discussed with Dr. Kidd today.
[2019-03-01] MEDS: RIVAROXABAN 10 MG TAB (XARELTO) PO SCH (17:14)
[2019-03-01 20:00] VITALS: BP 114/77
[2019-03-01] MEDS: SENNA 8.6 MG TAB (SENOKOT) PO SCH (21:00)
[2019-03-01] MEDS: DIGOXIN 0.125 MG TAB PO SCH (21:10)
[2019-03-02] MEDS: METOPROLOL TART 12.5 MG PER 1/2 TAB PO SCH ×5 (00:22→23:07)
[2019-03-02 06:00] VITALS: BP 109/72
[2019-03-02 07:42] LABS: HEMATOCRIT 34.8 % (42.0-52.0); HEMOGLOBIN 11.8 g/dl (13.5-17.5); MEAN CORPUSCULAR HEMOGLOBIN 33.1 pg (27.0-33.0); MEAN CORPUSCULAR HGB CONC 33.9 g/dl (32.0-36.5); MEAN CORPUSCULAR VOLUME 97.5 fl (80.0-96.0); PLATELET COUNT, AUTOMATED 219 10^3/uL (150-450); RED BLOOD COUNT 3.57 10^6/uL (4.30-6.10); WHITE BLOOD COUNT 6.4 10^3/uL (4.0-10.0)
[2019-03-02 08:00] LABS: BLOOD UREA NITROGEN 4 MG/DL (7-18); CALCIUM LEVEL 7.7 MG/DL (8.5-10.1); CARBON DIOXIDE LEVEL 32 MEQ/L (21-32); CHLORIDE LEVEL 103 MEQ/L (98-107); CREATININE FOR GFR 0.42 MG/DL (0.70-1.30); GLOMERULAR FILTRATION RATE > 60.0 (>56); GLUCOSE, FASTING 104 MG/DL (70-100); POTASSIUM SERUM 3.7 MEQ/L (3.5-5.1); SODIUM LEVEL 140 MEQ/L (136-145)
[2019-03-02] MEDS: MAGNESIUM OXIDE 400 MG TAB (MAG-OX) PO SCH ×2 (08:57→20:17)
[2019-03-02] MEDS: GABAPENTIN 100 MG CAP PO SCH ×3 (08:57→20:17)
[2019-03-02] MEDS: METOCLOPRAMIDE 10 MG TAB PO SCH (08:57)
[2019-03-02] MEDS: FOLIC ACID 1 MG TAB PO SCH (08:57)
[2019-03-02] MEDS: THIAMINE 100 MG TAB PO SCH (08:57)
[2019-03-02] MEDS: PANTOPRAZOLE 40MG TAB (PROTONIX) PO SCH (08:57)
[2019-03-02] MEDS: DOCUSATE SODIUM 100 MG CAP PO SCH ×2 (08:58→20:19)
[2019-03-02] MEDS: oxyCODONE 20 MG CR TAB PO SCH ×2 (08:58→20:19)
[2019-03-02] MEDS: ACETAMINOPHEN 500 MG TAB PO SCH ×3 (08:58→20:18)
[2019-03-02 12:03] VITALS: BP 114/74
--- NOTE | 2019-03-02 12:31 | IPNPDOC ---
Date Seen The patient was seen on 03/02/19. Progress Note SUBJECTIVE: Patient is a 58-year-old male with left hip fracture s/p ORIF. Patient is evaluated at bedside this morning. He is sitting up in a chair at bedside. He is somewhat frustrated because he says that his IV Morphine was taken away. He continues to report pain in his left hip. He says he takes Morphine at home. He denies chest pain, shortness of breath, fever, night sweats, chills. OBJECTIVE PHYSICAL EXAMINATION: VITAL SIGNS: Please see below. GENERAL: Frail older than stated age appearing male, alert and conversant, answers questions appropriately, somewhat frustrated. HEENT: Atraumatic, normocephalic, PERRL, EOMI, diminutive lower jaw, oral mucosa appears pink and moist, nasal septum appears midline, nares are patent. CARDIOVASCULAR: Irregularly irregular heart rate and rhythm, variable S1 and S2, no murmur, rub, click. RESPIRATORY: Clear to auscultation bilaterally, adequate inspiratory and expiratory airway excursion, symmetric airway entry, no focal consolidations, no wheeze, rhonchi, crackles. ABDOMINAL: Soft, non-tender, non-distended, bowel sounds appreciated. EXTREMITIES: No clubbing, no cyanosis, no peripheral edema. NEUROLOGICAL: CN II-XII grossly intact. PSYCHOLOGICAL: Somewhat frustrated. LABORATORY DATA, IMAGING STUDIES, MICROBIOLOGY: Please see below. DVT prophylaxis ordered?: Xarelto 10mg PO daily. ASSESSMENT AND PLAN: This is a 58-year-old male with left hip fracture s/p ORIF. PROBLEMS: 1. Mechanical fall resulting in left hip fracture s/p ORIF Currently admitted to PM&R; defer therapy to stamping mill tender C/W Oxycodone, Tylenol for pain control C/W PT, OT 2. Atrial fibrillation C/W Metoprolol, Digoxin, Xarelto 3. Alcohol abuse No signs of withdrawal C/W Folic Acid, Thiamine, and Multivitamin 4. Constipation C/W Colace, MoM, Senokot DISPOSITION: Pending improvement in PM&R. VS, I&O, 24H, Fishbone Vital Signs/I&O Vital Signs Date Time Temp Pulse Resp B/P (MAP) Pulse Ox O2 Delivery O2 Flow Rate FiO2 03/02/19 12:03 103 114/74 (87) 03/02/19 08:58 18 03/02/19 06:00 99.5 94 I&O- Last 24 Hours up to 6 AM 03/02/19 06:00 Intake Total 2460 ml Output Total 1900 ml Balance 560 ml Laboratory Data 24H LABS Laboratory Tests 2 03/02/19 07:08: Nucleated Red Blood Cells % (auto) 0.0, Anion Gap 5L, Glomerular Filtration Rate > 60.0, Blood Urea Nitrogen 4L, Creatinine 0.42L, Sodium Level 140, Potassium Level 3.7, Chloride Level 103, Carbon Dioxide Level 32, Calcium Level 7.7L CBC/BMP Laboratory Tests 03/02/19 07:08 Red Blood Count 3.57 L, Mean Corpuscular Volume 97.5 H, Mean Corpuscular Hemoglobin 33.1 H, Mean Corpuscular Hemoglobin Concent 33.9, Red Cell Distribution Width 18.6 H, Calcium Level 7.7 L PALOMO CADE DO Mar 02, 2019 12:31
[2019-03-02 14:00] VITALS: BP 104/58
[2019-03-02 17:34] VITALS: BP 110/70
[2019-03-02] MEDS: RIVAROXABAN 10 MG TAB (XARELTO) PO SCH (17:37)
[2019-03-02 20:00] VITALS: BP 114/78
[2019-03-02] MEDS: DIGOXIN 0.125 MG TAB PO SCH (20:17)
[2019-03-02] MEDS: SENNA 8.6 MG TAB (SENOKOT) PO SCH (20:19)
[2019-03-03 06:00] VITALS: BP 120/80
[2019-03-03] MEDS: METOPROLOL TART 12.5 MG PER 1/2 TAB PO SCH ×4 (06:38→23:05)
[2019-03-03] MEDS: DOCUSATE SODIUM 100 MG CAP PO SCH ×2 (09:00→20:04)
[2019-03-03] MEDS: THIAMINE 100 MG TAB PO SCH (09:02)
[2019-03-03] MEDS: ACETAMINOPHEN 500 MG TAB PO SCH ×3 (09:03→20:17)
[2019-03-03] MEDS: PANTOPRAZOLE 40MG TAB (PROTONIX) PO SCH (09:03)
[2019-03-03] MEDS: MAGNESIUM OXIDE 400 MG TAB (MAG-OX) PO SCH ×2 (09:03→20:17)
[2019-03-03] MEDS: GABAPENTIN 100 MG CAP PO SCH ×3 (09:03→20:17)
[2019-03-03] MEDS: METOCLOPRAMIDE 10 MG TAB PO SCH (09:03)
[2019-03-03] MEDS: FOLIC ACID 1 MG TAB PO SCH (09:03)
[2019-03-03] MEDS: oxyCODONE 20 MG CR TAB PO SCH ×2 (09:04→20:19)
[2019-03-03 12:29] VITALS: BP 110/71
--- NOTE | 2019-03-03 12:44 | IPNPDOC ---
Text Note Date of Service The patient was seen on 03/03/19. NOTE S: patient states feels fine. no complaints. states no DOE,no SOB, no CP, no pain, no N, no V O: Vitals as below General: pleasant,NAD AAOX3 HRRR no murmur Extremities - no tremor A/P: 1. 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 Atrial fibrillation- stable with Metoprolol, Digoxin, Xarelto 3. Alcohol abuse No signs of withdrawal continue Folic Acid, Thiamine, and Multivitamin 4. Constipation-Colace, MoM, Senokot VS,Fishbone, I+O VS, Fishbone, I+O Vital Signs Date Time Temp Pulse Resp B/P (MAP) Pulse Ox O2 Delivery O2 Flow Rate FiO2 03/03/19 12:30 84 110/71 03/03/19 09:04 20 03/03/19 06:00 99.6 93 I&O- Last 24 Hours up to 6 AM 03/03/19 06:00 Intake Total 2000 ml Output Total 2535 ml Balance -535 ml TORITO LAND DO Mar 03, 2019 12:44
[2019-03-03 14:00] VITALS: BP 94/66
[2019-03-03 17:32] VITALS: BP 123/75
[2019-03-03] MEDS: RIVAROXABAN 10 MG TAB (XARELTO) PO SCH (17:32)
[2019-03-03 20:00] VITALS: BP 121/81
[2019-03-03] MEDS: SENNA 8.6 MG TAB (SENOKOT) PO SCH (20:04)
[2019-03-03] MEDS: DIGOXIN 0.125 MG TAB PO SCH (20:17)
[2019-03-04] MEDS: METOPROLOL TART 12.5 MG PER 1/2 TAB PO SCH ×3 (05:36→17:32)
[2019-03-04 05:40] VITALS: BP 119/81
[2019-03-04 07:16] LABS: BASO # 0.1 10^3/uL (0.0-0.2); EOS # 0.5 10^3/uL (0.0-0.50); EOS % 6.5 % (0.0-3.0); HEMATOCRIT 34.6 % (42.0-52.0); HEMOGLOBIN 11.9 g/dl (13.5-17.5); LYMPH # 0.9 10^3/uL (1.5-4.5); LYMPH % 12.4 % (24.0-44.0); MEAN CORPUSCULAR HGB CONC 34.4 g/dl (32.0-36.5); MEAN CORPUSCULAR VOLUME 101.8 fl (80.0-96.0); MONO % 13.4 % (0.0-5.0); NEUTROPHILS # 4.7 10^3/uL (1.8-7.7); NEUTROPHILS % 66.3 % (36.0-66.0); PLATELET COUNT, AUTOMATED 262 10^3/uL (150-450); WHITE BLOOD COUNT 7.1 10^3/uL (4.0-10.0)
[2019-03-04] MEDS: THIAMINE 100 MG TAB PO SCH (07:47)
[2019-03-04] MEDS: GABAPENTIN 100 MG CAP PO SCH ×3 (07:47→20:44)
[2019-03-04] MEDS: FOLIC ACID 1 MG TAB PO SCH (07:48)
[2019-03-04] MEDS: ACETAMINOPHEN 500 MG TAB PO SCH ×3 (07:48→20:47)
[2019-03-04] MEDS: PANTOPRAZOLE 40MG TAB (PROTONIX) PO SCH (07:48)
[2019-03-04] MEDS: MAGNESIUM OXIDE 400 MG TAB (MAG-OX) PO SCH ×2 (07:48→20:44)
[2019-03-04] MEDS: METOCLOPRAMIDE 10 MG TAB PO SCH (07:48)
[2019-03-04] MEDS: DOCUSATE SODIUM 100 MG CAP PO SCH ×2 (07:49→20:44)
[2019-03-04] MEDS: oxyCODONE 20 MG CR TAB PO SCH ×2 (07:49→20:46)
[2019-03-04 08:01] LABS: BLOOD UREA NITROGEN 7 MG/DL (7-18); CALCIUM LEVEL 7.7 MG/DL (8.5-10.1); CARBON DIOXIDE LEVEL 31 MEQ/L (21-32); CHLORIDE LEVEL 103 MEQ/L (98-107); CREATININE FOR GFR 0.44 MG/DL (0.70-1.30); GLOMERULAR FILTRATION RATE > 60.0 (>56); GLUCOSE, FASTING 85 MG/DL (70-100); POTASSIUM SERUM 3.9 MEQ/L (3.5-5.1); SODIUM LEVEL 138 MEQ/L (136-145)
--- NOTE | 2019-03-04 10:29 | IPNPDOC ---
PM&R Progress Note DATE OF SERVICE: Mar 04, 2019 Percussion Instrument Repairer Progress Note Subjective: Patient seen in bed stating his pain is well controlled and he is enjoying therapy. REVIEW OF SYSTEMS: The following is a completed review of systems and has been reviewed. Review of systems otherwise unremarkable. PAIN: Patient self reports left hip pain EYES: no recent vision loss EARS, NOSE, & THROAT: denies dysphagia, but difficulty chewing solids CARDIOVASCULAR: denies chest pain or palpitations PULMONARY: Negative. Denies shortness of breath GASTROINTESTINAL: denies constipation/diarrhea GENITOURINARY: no dysuria MUSCULOSKELETAL: left hip fracture NEUROLOGICAL: denies tremor or seizure activity HEMATOLOGICAL: + anemia SKIN: left hip incision and scattered ecchymosis PSYCHIATRIC: Unremarkable All other review of systems found to be negative. PHYSICAL EXAMINATION: VITAL SIGNS: Please see below. GENERAL: Pleasant and cooperative. No acute distress. thin HEENT: PERRL. Extraocular movements intact. clear conjunctiva CARDIOVASCULAR: Irregular rate and rhythm. No murmurs, rubs, or gallops LUNGS: Clear to auscultation bilaterally. No wheezes. No rhonchi ABDOMEN: Soft, nontender, nondistended. Positive bowel sounds. Normal active bowel sound NEUROLOGICAL: Alert and oriented times three. Cranial nerves II through XII grossly intact. Sensation grossly intact including 1st web space left foot (-) asterixes/tremor EXTREMITIES: 5\5 strength bilateral upper extremities. 5\5 strength right lower extremity. 5/5 strength in left ankle DF and EHL (exam limited due to hip surgery). SKIN: left hip incision with ecchymosis and mild edema, non-tender to palpation ASSESSMENT:58-year-old M with past medical history of Afib with RVR, ETOH abuse who presents status post fall with left hip fracture PLAN: 1. Rehab: PT, OT, assess for DME needs -goal to strengthen left leg, improve trunk control and upper body strength for safe and effective ambulation with his new gait deficits -Modalities prn -ambulating with RW - hx of jaw cancer with partial resection, will soften diet 2. Ortho: s/p left hip fracture with nailing- ortho consulted, WBAT 2. Neuro: monitor for delirium tremens, avoid deliriogenic medications, will attempt to taper/wean off short acting opioids -thiamine and folic acid for neuro-supplementation in setting of chronic ETOH use 3. Cardio: pmh Afib with recent RVR requiring addition of digoxin- c/u metoprolol, will monitor- medicine consulted to assist in management -per patient he was on ASA at home for his Afib, will discuss with his efficiency manager if ok to start on full dose Xarelto- he is currently off ASA for suspected GI bleed and on DVT prophylactic dosing of Xarelto 4. Resp: encourage incentive spirometry 5. GI ppx: protonix, recent FOBT negative 6. DVT ppx: Xarelto 10mg daily 7. : monitor PVRs 8. Heme: anemia most likely from chronic disease and ETOH use, will monitor and transfuse if Hgb <8-stable 9. Skin: change dressing prn soil 10. Pain: c/u oxycontin, c/u standing tylenol, and attempt to taper off short acting oxycodone, c/u Gabapentin 100 mg ITD 10. Dispo: TBD Allergies Coded Allergies: No Known Allergies (Verified , 09/08/04) Vital Signs Vital Signs Date Time Temp Pulse Resp B/P (MAP) Pulse Ox O2 Delivery O2 Flow Rate FiO2 03/04/19 07:49 18 03/04/19 05:40 98.9 91 119/81 (94) 93 Laboratory Data CBC/BMP Laboratory Tests 03/04/19 06:44 Red Blood Count 3.40 L, Mean Corpuscular Volume 101.8 H, Mean Corpuscular Hemoglobin 35.0 H, Mean Corpuscular Hemoglobin Concent 34.4, Red Cell Distribution Width 18.4 H, Neutrophils (%) (Auto) 66.3 H, Lymphocytes (%) (Auto) 12.4 L, Monocytes (%) (Auto) 13.4 H, Eosinophils (%) (Auto) 6.5 H, Basophils (%) (Auto) 1.0, Neutrophils # (Auto) 4.7, Lymphocytes # (Auto) 0.9 L, Monocytes # (Auto) 1.0 H, Eosinophils # (Auto) 0.5, Basophils # (Auto) 0.1, Calcium Level 7.7 L Labs 24H Laboratory Tests 2 03/04/19 06:44: Immature Granulocyte % (Auto) 0.4, White Blood Count 7.1, Red Blood Count 3.40L, Hemoglobin 11.9L, Hematocrit 34.6L, Mean Corpuscular Volume 101.8H, Mean Cor puscular Hemoglobin 35.0H, Mean Corpuscular Hemoglobin Concent 34.4, Red Cell Distribution Width 18.4H, Platelet Count 262, Neutrophils (%) (Auto) 66.3H, Lymphocytes (%) (Auto) 12.4L, Monocytes (%) (Auto) 13.4H, Eosinophils (%) (Auto) 6.5H, Basophils (%) (Auto) 1.0, Neutrophils # (Auto) 4.7, Lymphocytes # (Auto) 0.9L, Monocytes # (Auto) 1.0H, Eosinophils # (Auto) 0.5, Basophils # (Auto) 0.1, Nucleated Red Blood Cells % (auto) 0.0, Anion Gap 4L, Glomerular Filtration Rate > 60.0, Blood Urea Nitrogen 7#, Creatinine 0.44L, Sodium Level 138, Potassium Level 3.9, Chloride Level 103, Carbon Dioxide Level 31, Calcium Level 7.7L Current Medications Current Medications Current Medications Acetaminophen (Tylenol Tab) 650 mg DAILY PRN PO pain Last administered on 03/01/19at 12:02; Start 03/01/19 at 12:00 Acetaminophen (Tylenol Tab) 1,000 mg TID PO Last administered on 03/04/19 07:48; Start 02/28/19 at 21:00 Bisacodyl (Dulcolax Suppository) 10 mg DAILYPRN PRN [place] CONSTIPATION; Start 02/28/19 at 11:00 Digoxin (Lanoxin) 0.125 mg DAILY@2100 PO Last administered on 03/03/19 20:17; Start 03/01/19 at 21:00 Docusate Sodium (Colace) 100 mg BID PO Last administered on 02/28/19at 20:43; Start 02/28/19 at 21:00 Folic Acid (Folic Acid) 1 mg DAILY PO Last administered on 03/04/19 07:48; Start 03/01/19 at 09:00 Gabapentin (Neurontin) 100 mg TID PO Last administered on 03/04/19 07:47; Start 02/28/19 at 16:00 Magnesium Hydroxide (Milk Of Magnesia) 30 ml DAILYPRN PRN PO CONSTIPATION; Start 02/28/19 at 11:00 Magnesium Oxide (Mag-Ox) 400 mg BID PO Last administered on 03/04/19 07:48; Start 02/28/19 at 21:00 Metoclopramide HCl (Reglan) 10 mg DAILY PO Last administered on 03/04/19 07:48; Start 03/01/19 at 09:00 Metoprolol Tartrate (Lopressor) 12.5 mg Q6H PO Last administered on 03/04/19 05:36; Start 02/28/19 at 18:00 Ondansetron HCl (Zofran) 4 mg Q6HP PRN PO NAUSEA; Start 02/28/19 at 15:00 Oxycodone HCl (OxyCONTIN) 20 mg BID PO Last administered on 03/04/19 07:49; Start 02/28/19 at 21:00 Oxycodone HCl (Roxicodone, Oxyir) 5 mg Q6HP PRN PO PAIN Last administered on 02/28/19 15:51; Start 02/28/19 at 11:00; Stop 03/01/19 at 11:52; Status DC Pantoprazole Sodium (Protonix) 40 mg DAILY PO Last administered on 03/04/19 07:48; Start 02/28/19 at 09:00 Rivaroxaban (Xarelto) 10 mg DAILY@1800 PO Last administered on 03/03/19 17:32; Start 03/01/19 at 18:00; Stop 04/02/19 at 23:55 Senna (Senokot) 1 tab QHS PO ; Start 02/28/19 at 21:00 Thiamine HCl (Thiamine HCl) 100 mg DAILY PO Last administered on 03/04/19 07:47; Start 03/01/19 at 09:00 MARI NARANJO MD Mar 04, 2019 10:29
[2019-03-04 14:00] VITALS: BP 113/73
--- NOTE | 2019-03-04 15:48 | IPNPDOC ---
Text Note Date of Service The patient was seen on 03/04/19. 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 Denies chills, fever, chest pain, shortness of breath. Denies nausea, vomiting Objective: GENERAL: NAD SKIN : Warm, dry intact HEENT: Atraumatic, PERRL, moist mucous membrane CARDIOVASCULAR: irregular rate and rhythm, S1S2, no JVD, no edema RESP: CTAB, no accessory muscle use noted ABDOMEN: BS+ non distended non tender MS: no joint deformities NEURO: Alert and oriented x 3, CN2-12 grossly intact PSYCH: no anxiety or agitation, appropriate mood and affect. Assessment and plan Left hip fracture -Due to mechanical fall -Status post left hip ORIF -Rehabilitation by primary team Atrial fibrillation -Continued on anticoagulation therapy with Xarelto -Rate control with metoprolol and digoxin Anemia -Stable hemoglobin -Likely due to heavy alcohol abuse Alcohol abuse -Continue folic acid, thiamine, multivitamin Constipation -Continue Colace, Senokot DVT prophylaxis -Fully anticoagulated on Xarelto VS,Fishbone, I+O VS, Fishbone, I+O Laboratory Tests 03/04/19 06:44 Red Blood Count 3.40 L, Mean Corpuscular Volume 101.8 H, Mean Corpuscular Hemoglobin 35.0 H, Mean Corpuscular Hemoglobin Concent 34.4, Red Cell Distribution Width 18.4 H, Neutrophils (%) (Auto) 66.3 H, Lymphocytes (%) (Auto) 12.4 L, Monocytes (%) (Auto) 13.4 H, Eosinophils (%) (Auto) 6.5 H, Basophils (%) (Auto) 1.0, Neutrophils # (Auto) 4.7, Lymphocytes # (Auto) 0.9 L, Monocytes # (Auto) 1.0 H, Eosinophils # (Auto) 0.5, Basophils # (Auto) 0.1, Calcium Level 7.7 L Vital Signs Date Time Temp Pulse Resp B/P (MAP) Pulse Ox O2 Delivery O2 Flow Rate FiO2 03/04/19 14:00 98.1 91 18 113/73 (86) 95 I&O- Last 24 Hours up to 6 AM 03/04/19 06:00 Intake Total 1600 ml Output Total 2825 ml Balance -1225 ml K[facility]A [facility] Mar 04, 2019 15:48
[2019-03-04] MEDS: RIVAROXABAN 10 MG TAB (XARELTO) PO SCH (17:32)
[2019-03-04 20:09] VITALS: BP 106/69
[2019-03-04] MEDS: SENNA 8.6 MG TAB (SENOKOT) PO SCH (20:44)
[2019-03-04] MEDS: DIGOXIN 0.125 MG TAB PO SCH (20:45)
[2019-03-05 00:01] VITALS: BP 106/66
[2019-03-05] MEDS: METOPROLOL TART 12.5 MG PER 1/2 TAB PO SCH ×4 (05:50→17:59)
[2019-03-05 05:53] VITALS: BP 129/68
[2019-03-05] MEDS: THIAMINE 100 MG TAB PO SCH (07:57)
[2019-03-05] MEDS: METOCLOPRAMIDE 10 MG TAB PO SCH (07:57)
[2019-03-05] MEDS: FOLIC ACID 1 MG TAB PO SCH (07:57)
[2019-03-05] MEDS: GABAPENTIN 100 MG CAP PO SCH ×3 (07:57→21:26)
[2019-03-05] MEDS: PANTOPRAZOLE 40MG TAB (PROTONIX) PO SCH (07:57)
[2019-03-05] MEDS: MAGNESIUM OXIDE 400 MG TAB (MAG-OX) PO SCH ×2 (07:57→21:27)
[2019-03-05] MEDS: oxyCODONE 20 MG CR TAB PO SCH ×2 (07:58→21:28)
[2019-03-05] MEDS: ACETAMINOPHEN 500 MG TAB PO SCH ×3 (07:58→21:28)
[2019-03-05] MEDS: DOCUSATE SODIUM 100 MG CAP PO SCH ×2 (07:58→21:27)
--- NOTE | 2019-03-05 10:23 | IPNPDOC ---
PM&R Progress Note DATE OF SERVICE: Mar 05, 2019 Reel Worker Progress Note Subjective: Patient reports he is feeling enarly ready to go home, but understands he needs to be more independent with stairs. REVIEW OF SYSTEMS: The following is a completed review of systems and has been reviewed. Review of systems otherwise unremarkable. PAIN: Patient self reports left hip pain EYES: no recent vision loss EARS, NOSE, & THROAT: denies dysphagia, but difficulty chewing solids CARDIOVASCULAR: denies chest pain or palpitations PULMONARY: Negative. Denies shortness of breath GASTROINTESTINAL: denies constipation/diarrhea GENITOURINARY: no dysuria MUSCULOSKELETAL: left hip fracture NEUROLOGICAL: denies tremor or seizure activity HEMATOLOGICAL: + anemia SKIN: left hip incision and scattered ecchymosis PSYCHIATRIC: Unremarkable All other review of systems found to be negative. PHYSICAL EXAMINATION: VITAL SIGNS: Please see below. GENERAL: Pleasant and cooperative. No acute distress. thin HEENT: PERRL. Extraocular movements intact. clear conjunctiva CARDIOVASCULAR: Irregular rate and rhythm. No murmurs, rubs, or gallops LUNGS: Clear to auscultation bilaterally. No wheezes. No rhonchi ABDOMEN: Soft, nontender, nondistended. Positive bowel sounds. Normal active bowel sound NEUROLOGICAL: Alert and oriented times three. Cranial nerves II through XII grossly intact. Sensation grossly intact including 1st web space left foot (-) asterixes/tremor EXTREMITIES: 5\5 strength bilateral upper extremities. 5\5 strength right lower extremity. 5/5 strength in left ankle DF and EHL (exam limited due to hip surgery). SKIN: left hip incision with ecchymosis and mild edema, non-tender to palpation ASSESSMENT:58-year-old M with past medical history of Afib with RVR, ETOH abuse who presents status post fall with left hip fracture PLAN: 1. Rehab: PT, OT, assess for DME needs -goal to strengthen left leg, improve trunk control and upper body strength for safe and effective ambulation with his new gait deficits -Modalities prn -ambulating further with RW Mod-I, still needs help with stairs - hx of jaw cancer with partial resection, will soften diet 2. Ortho: s/p left hip fracture with nailing- ortho consulted, WBAT 2. Neuro: monitor for delirium tremens, avoid deliriogenic medications, will attempt to taper/wean off short acting opioids -thiamine and folic acid for neuro-supplementation in setting of chronic ETOH use 3. 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 Resp: encourage incentive spirometry 5. GI ppx: protonix, recent FOBT negative 6. DVT ppx: Xarelto 10mg daily 7. : monitor PVRs 8. Heme: anemia most likely from chronic disease and ETOH use, will monitor and transfuse if Hgb <8-stable 9. Skin: change dressing prn soil 10. Pain: c/u oxycontin, c/u standing tylenol, and attempt to taper off short acting oxycodone, c/u Gabapentin 100 mg ITD 10. Dispo: quickly progressing, TBD Allergies Coded Allergies: No Known Allergies (Verified , 09/08/04) Vital Signs Vital Signs Date Time Temp Pulse Resp B/P (MAP) Pulse Ox O2 Delivery O2 Flow Rate FiO2 03/05/19 07:58 18 03/05/19 05:53 97.6 68 129/68 (88) 97 Current Medications Current Medications Current Medications Acetaminophen (Tylenol Tab) 650 mg DAILY PRN PO pain Last administered on 03/01/19at 12:02; Start 03/01/19 at 12:00 Acetaminophen (Tylenol Tab) 1,000 mg TID PO Last administered on 03/05/19at 07:58; Start 02/28/19 at 21:00 Bisacodyl (Dulcolax Suppository) 10 mg DAILYPRN PRN [place] CONSTIPATION; Start 02/28/19 at 11:00 Digoxin (Lanoxin) 0.125 mg DAILY@2100 PO Last administered on 03/04/19at 20:45; Start 03/01/19 at 21:00 Docusate Sodium (Colace) 100 mg BID PO Last administered on 03/04/19at 20:44; Start 02/28/19 at 21:00 Folic Acid (Folic Acid) 1 mg DAILY PO Last administered on 03/05/19at 07:57; Start 03/01/19 at 09:00 Gabapentin (Neurontin) 100 mg TID PO Last administered on 03/05/19 07:57; Start 02/28/19 at 16:00 Magnesium Hydroxide (Milk Of Magnesia) 30 ml DAILYPRN PRN PO CONSTIPATION; Start 02/28/19 at 11:00 Magnesium Oxide (Mag-Ox) 400 mg BID PO Last administered on 03/05/19 07:57; Start 02/28/19 at 21:00 Metoclopramide HCl (Reglan) 10 mg DAILY PO Last administered on 03/05/19 07:57; Start 03/01/19 at 09:00 Metoprolol Tartrate (Lopressor) 12.5 mg Q6H PO Last administered on 03/04/19 17:32; Start 02/28/19 at 18:00 Ondansetron HCl (Zofran) 4 mg Q6HP PRN PO NAUSEA; Start 02/28/19 at 15:00 Oxycodone HCl (OxyCONTIN) 20 mg BID PO Last administered on 03/05/19 07:58; Start 02/28/19 at 21:00 Oxycodone HCl (Roxicodone, Oxyir) 5 mg Q6HP PRN PO PAIN Last administered on 02/28/19 15:51; Start 02/28/19 at 11:00; Stop 03/01/19 at 11:52; Status DC Pantoprazole Sodium (Protonix) 40 mg DAILY PO Last administered on 03/05/19 07:57; Start 02/28/19 at 09:00 Rivaroxaban (Xarelto) 10 mg DAILY@1800 PO Last administered on 03/04/19 17:32; Start 03/01/19 at 18:00; Stop 04/02/19 at 23:55 Senna (Senokot) 1 tab QHS PO Last administered on 03/04/19 20:44; Start 02/28/19 at 21:00 Thiamine HCl (Thiamine HCl) 100 mg DAILY PO Last administered on 03/05/19 07:57; Start 03/01/19 at 09:00 MARI NARANJO MD Mar 05, 2019 10:22
[2019-03-05 14:00] VITALS: BP 107/74
[2019-03-05] MEDS: RIVAROXABAN 10 MG TAB (XARELTO) PO SCH (17:58)
[2019-03-05 20:13] VITALS: BP 94/61
[2019-03-05] MEDS: DIGOXIN 0.125 MG TAB PO SCH (21:27)
[2019-03-05] MEDS: SENNA 8.6 MG TAB (SENOKOT) PO SCH (21:27)
[2019-03-06] MEDS: METOPROLOL TART 12.5 MG PER 1/2 TAB PO SCH ×4 (05:48→17:26)
[2019-03-06 06:04] VITALS: BP 109/72
[2019-03-06] MEDS: MAGNESIUM OXIDE 400 MG TAB (MAG-OX) PO SCH ×2 (08:50→21:22)
[2019-03-06] MEDS: FOLIC ACID 1 MG TAB PO SCH (08:50)
[2019-03-06] MEDS: THIAMINE 100 MG TAB PO SCH (08:50)
[2019-03-06] MEDS: METOCLOPRAMIDE 10 MG TAB PO SCH (08:50)
[2019-03-06] MEDS: GABAPENTIN 100 MG CAP PO SCH ×3 (08:50→21:23)
[2019-03-06] MEDS: PANTOPRAZOLE 40MG TAB (PROTONIX) PO SCH (08:50)
[2019-03-06] MEDS: ACETAMINOPHEN 500 MG TAB PO SCH ×3 (08:51→21:23)
[2019-03-06] MEDS: oxyCODONE 20 MG CR TAB PO SCH ×2 (08:51→21:22)
[2019-03-06] MEDS: DOCUSATE SODIUM 100 MG CAP PO SCH ×2 (08:52→21:23)
[2019-03-06 14:00] VITALS: BP 120/74
--- NOTE | 2019-03-06 17:15 | IPNPDOC ---
PM&R Progress Note DATE OF SERVICE: Mar 06, 2019 Logistics Clerk Progress Note Subjective: Patient reports he did stairs comfortably today and that his pain is well controlled. REVIEW OF SYSTEMS: The following is a completed review of systems and has been reviewed. Review of systems otherwise unremarkable. PAIN: Patient self reports left hip pain EYES: no recent vision loss EARS, NOSE, & THROAT: denies dysphagia, but difficulty chewing solids CARDIOVASCULAR: denies chest pain or palpitations PULMONARY: Negative. Denies shortness of breath GASTROINTESTINAL: denies constipation/diarrhea GENITOURINARY: no dysuria MUSCULOSKELETAL: left hip fracture NEUROLOGICAL: denies tremor or seizure activity HEMATOLOGICAL: + anemia SKIN: left hip incision and scattered ecchymosis PSYCHIATRIC: Unremarkable All other review of systems found to be negative. PHYSICAL EXAMINATION: VITAL SIGNS: Please see below. GENERAL: Pleasant and cooperative. No acute distress. thin HEENT: PERRL. Extraocular movements intact. clear conjunctiva CARDIOVASCULAR: Irregular rate and rhythm. No murmurs, rubs, or gallops LUNGS: Clear to auscultation bilaterally. No wheezes. No rhonchi ABDOMEN: Soft, nontender, nondistended. Positive bowel sounds. Normal active bowel sound NEUROLOGICAL: Alert and oriented times three. Cranial nerves II through XII grossly intact. Sensation grossly intact including 1st web space left foot (-) asterixes/tremor EXTREMITIES: 5\5 strength bilateral upper extremities. 5\5 strength right lower extremity. 5/5 strength in left ankle DF and EHL (exam limited due to hip surgery). SKIN: left hip incision with ecchymosis and mild edema, non-tender to palpation ASSESSMENT:58-year-old M with past medical history of Afib with RVR, ETOH abuse who presents status post fall with left hip fracture PLAN: 1. Rehab: PT, OT, assess for DME needs -goal to strengthen left leg, improve trunk control and upper body strength for safe and effective ambulation with his new gait deficits -Modalities prn -ambulating further with RW Mod-I, Mod-I with stair, room privileges - hx of jaw cancer with partial resection, will soften diet 2. Ortho: s/p left hip fracture with nailing- ortho consulted, WBAT 2. Neuro: monitor for delirium tremens, avoid deliriogenic medications, will attempt to taper/wean off short acting opioids -thiamine and folic acid for neuro-supplementation in setting of chronic ETOH use 3. Cardio: pmh Afib with recent RVR requiring addition of digoxin- c/u metoprolol, will monitor- medicine consulted to assist in management -per patient he was on ASA at home for his Afib, will discuss with his contact lens polisher if ok to start on full dose Xarelto- he is currently off ASA for suspected GI bleed and on DVT prophylactic dosing of Xarelto 4. Resp: encourage incentive spirometry 5. GI ppx: protonix, recent FOBT negative 6. DVT ppx: Xarelto 10mg daily 7. : monitor PVRs 8. Heme: anemia most likely from chronic disease and ETOH use, will monitor and transfuse if Hgb <8-stable 9. Skin: change dressing prn soil 10. Pain: c/u oxycontin, c/u standing tylenol, and attempt to taper off short acting oxycodone, c/u Gabapentin 100 mg ITD 10. Dispo: quickly progressing, 03/08/19 after therapy Allergies Coded Allergies: No Known Allergies (Verified , 09/08/04) Vital Signs Vital Signs Date Time Temp Pulse Resp B/P (MAP) Pulse Ox O2 Delivery O2 Flow Rate FiO2 03/06/19 14:00 97.7 77 18 120/74 (89) 94 Current Medications Current Medications Current Medications Acetaminophen (Tylenol Tab) 650 mg DAILY PRN PO pain Last administered on 03/01/19at 12:02; Start 03/01/19 at 12:00 Acetaminophen (Tylenol Tab) 1,000 mg TID PO Last administered on 03/06/19at 08:51; Start 02/28/19 at 21:00 Bisacodyl (Dulcolax Suppository) 10 mg DAILYPRN PRN [place] CONSTIPATION; Start 02/28/19 at 11:00 Digoxin (Lanoxin) 0.125 mg DAILY@2100 PO Last administered on 03/05/19at 21:27; Start 03/01/19 at 21:00 Docusate Sodium (Colace) 100 mg BID PO Last administered on 03/05/19at 21:27; Start 02/28/19 at 21:00 Folic Acid (Folic Acid) 1 mg DAILY PO Last administered on 03/06/19at 08:50; Start 03/01/19 at 09:00 Gabapentin (Neurontin) 100 mg TID PO Last administered on 03/06/19 08:50; Start 02/28/19 at 16:00 Magnesium Hydroxide (Milk Of Magnesia) 30 ml DAILYPRN PRN PO CONSTIPATION; Start 02/28/19 at 11:00 Magnesium Oxide (Mag-Ox) 400 mg BID PO Last administered on 03/06/19 08:50; Start 02/28/19 at 21:00 Metoclopramide HCl (Reglan) 10 mg DAILY PO Last administered on 03/06/19 08:50; Start 03/01/19 at 09:00 Metoprolol Tartrate (Lopressor) 12.5 mg Q6H PO Last administered on 03/05/19 17:59; Start 02/28/19 at 18:00 Ondansetron HCl (Zofran) 4 mg Q6HP PRN PO NAUSEA; Start 02/28/19 at 15:00 Oxycodone HCl (OxyCONTIN) 20 mg BID PO Last administered on 03/06/19 08:51; Start 02/28/19 at 21:00 Oxycodone HCl (Roxicodone, Oxyir) 5 mg Q6HP PRN PO PAIN Last administered on 02/28/19 15:51; Start 02/28/19 at 11:00; Stop 03/01/19 at 11:52; Status DC Pantoprazole Sodium (Protonix) 40 mg DAILY PO Last administered on 03/06/19 08:50; Start 02/28/19 at 09:00 Rivaroxaban (Xarelto) 10 mg DAILY@1800 PO Last administered on 03/05/19 17:58; Start 03/01/19 at 18:00; Stop 04/02/19 at 23:55 Senna (Senokot) 1 tab QHS PO Last administered on 03/05/19 21:27; Start 02/28/19 at 21:00 Thiamine HCl (Thiamine HCl) 100 mg DAILY PO Last administered on 03/06/19 08:50; Start 03/01/19 at 09:00 MARI NARANJO MD Mar 06, 2019 17:14
[2019-03-06] MEDS: RIVAROXABAN 10 MG TAB (XARELTO) PO SCH (17:25)
[2019-03-06] MEDS: DIGOXIN 0.125 MG TAB PO SCH (21:23)
[2019-03-06] MEDS: SENNA 8.6 MG TAB (SENOKOT) PO SCH (21:30)
[2019-03-06 22:00] VITALS: BP 104/62
[2019-03-07 06:00] VITALS: BP 127/79
[2019-03-07] MEDS: METOPROLOL TART 12.5 MG PER 1/2 TAB PO SCH ×3 (06:04→12:00)
[2019-03-07] MEDS: oxyCODONE 20 MG CR TAB PO SCH (08:55)
[2019-03-07] MEDS: THIAMINE 100 MG TAB PO SCH (08:56)
[2019-03-07] MEDS: PANTOPRAZOLE 40MG TAB (PROTONIX) PO SCH (08:56)
[2019-03-07] MEDS: METOCLOPRAMIDE 10 MG TAB PO SCH (08:56)
[2019-03-07] MEDS: MAGNESIUM OXIDE 400 MG TAB (MAG-OX) PO SCH (08:56)
[2019-03-07] MEDS: DOCUSATE SODIUM 100 MG CAP PO SCH (08:56)
[2019-03-07] MEDS: GABAPENTIN 100 MG CAP PO SCH (08:56)
[2019-03-07] MEDS: FOLIC ACID 1 MG TAB PO SCH (09:05)
[2019-03-07] MEDS: ACETAMINOPHEN 500 MG TAB PO SCH (09:07)
--- NOTE | 2019-03-07 10:18 | IPNPDOC ---
PM&R Progress Note DATE OF SERVICE: Mar 07, 2019 Medical Billing Representative Progress Note Subjective: REVIEW OF SYSTEMS: The following is a completed review of systems and has been reviewed. Review of systems otherwise unremarkable. PAIN: Patient self reports left hip pain EYES: no recent vision loss EARS, NOSE, & THROAT: denies dysphagia, but difficulty chewing solids CARDIOVASCULAR: denies chest pain or palpitations PULMONARY: Negative. Denies shortness of breath GASTROINTESTINAL: denies constipation/diarrhea GENITOURINARY: no dysuria MUSCULOSKELETAL: left hip fracture NEUROLOGICAL: denies tremor or seizure activity HEMATOLOGICAL: + anemia SKIN: left hip incision and scattered ecchymosis PSYCHIATRIC: Unremarkable All other review of systems found to be negative. PHYSICAL EXAMINATION: VITAL SIGNS: Please see below. GENERAL: Pleasant and cooperative. No acute distress. thin HEENT: PERRL. Extraocular movements intact. clear conjunctiva CARDIOVASCULAR: Irregular rate and rhythm. No murmurs, rubs, or gallops LUNGS: Clear to auscultation bilaterally. No wheezes. No rhonchi ABDOMEN: Soft, nontender, nondistended. Positive bowel sounds. Normal active bowel sound NEUROLOGICAL: Alert and oriented times three. Cranial nerves II through XII grossly intact. Sensation grossly intact including 1st web space left foot (-) asterixes/tremor EXTREMITIES: 5\5 strength bilateral upper extremities. 5\5 strength right lower extremity. 5/5 strength in left ankle DF and EHL (exam limited due to hip surgery). SKIN: left hip incision with ecchymosis and mild edema, non-tender to palpation ASSESSMENT:58-year-old M with past medical history of Afib with RVR, ETOH abuse who presents status post fall with left hip fracture PLAN: 1. Rehab: PT, OT, assess for DME needs -goal to strengthen left leg, improve trunk control and upper body strength for safe and effective ambulation with his new gait deficits -Modalities prn -ambulating further with RW Mod-I, Mod-I with stair, room privileges - hx of jaw cancer with partial resection, will soften diet 2. Ortho: s/p left hip fracture with nailing- ortho consulted, WBAT 2. Neuro: monitor for delirium tremens, avoid deliriogenic medications, will attempt to taper/wean off short acting opioids -thiamine and folic acid for neuro-supplementation in setting of chronic ETOH use 3. 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 Resp: encourage incentive spirometry 5. GI ppx: protonix, recent FOBT negative 6. DVT ppx: Xarelto 10mg daily 7. : monitor PVRs 8. Heme: anemia most likely from chronic disease and ETOH use, will monitor and transfuse if Hgb <8-stable 9. Skin: change dressing prn soil 10. Pain: c/u oxycontin, c/u standing tylenol, and attempt to taper off short acting oxycodone, c/u Gabapentin 100 mg ITD 10. Dispo: quickly progressing, 03/08/19 after therapy Allergies Coded Allergies: No Known Allergies (Verified , 09/08/04) Vital Signs Vital Signs Date Time Temp Pulse Resp B/P (MAP) Pulse Ox O2 Delivery O2 Flow Rate FiO2 03/07/19 08:55 16 03/07/19 06:04 88 127/79 03/07/19 06:00 98.8 95 Current Medications Current Medications Current Medications Acetaminophen (Tylenol Tab) 650 mg DAILY PRN PO pain Last administered on 03/01/19at 12:02; Start 03/01/19 at 12:00 Acetaminophen (Tylenol Tab) 1,000 mg TID PO Last administered on 03/07/19at 09:07; Start 02/28/19 at 21:00 Bisacodyl (Dulcolax Suppository) 10 mg DAILYPRN PRN [place] CONSTIPATION; Start 02/28/19 at 11:00 Digoxin (Lanoxin) 0.125 mg DAILY@2100 PO Last administered on 03/06/19at 21:23; Start 03/01/19 at 21:00 Docusate Sodium (Colace) 100 mg BID PO Last administered on 03/07/19at 08:56; Start 02/28/19 at 21:00 Folic Acid (Folic Acid) 1 mg DAILY PO Last administered on 03/07/19at 09:05; Start 03/01/19 at 09:00 Gabapentin (Neurontin) 100 mg TID PO Last administered on 03/07/19 08:56; Start 02/28/19 at 16:00 Magnesium Hydroxide (Milk Of Magnesia) 30 ml DAILYPRN PRN PO CONSTIPATION; Start 02/28/19 at 11:00 Magnesium Oxide (Mag-Ox) 400 mg BID PO Last administered on 03/07/19 08:56; Start 02/28/19 at 21:00 Metoclopramide HCl (Reglan) 10 mg DAILY PO Last administered on 03/07/19 08:56; Start 03/01/19 at 09:00 Metoprolol Tartrate (Lopressor) 12.5 mg Q6H PO Last administered on 03/07/19 06:04; Start 02/28/19 at 18:00 Ondansetron HCl (Zofran) 4 mg Q6HP PRN PO NAUSEA; Start 02/28/19 at 15:00 Oxycodone HCl (OxyCONTIN) 20 mg BID PO Last administered on 03/07/19 08:55; Start 02/28/19 at 21:00 Oxycodone HCl (Roxicodone, Oxyir) 5 mg Q6HP PRN PO PAIN Last administered on 02/28/19 15:51; Start 02/28/19 at 11:00; Stop 03/01/19 at 11:52; Status DC Pantoprazole Sodium (Protonix) 40 mg DAILY PO Last administered on 03/07/19 08:56; Start 02/28/19 at 09:00 Rivaroxaban (Xarelto) 10 mg DAILY@1800 PO Last administered on 03/06/19 17:25; Start 03/01/19 at 18:00; Stop 04/02/19 at 23:55 Senna (Senokot) 1 tab QHS PO Last administered on 03/05/19 21:27; Start 02/28/19 at 21:00 Thiamine HCl (Thiamine HCl) 100 mg DAILY PO Last administered on 03/07/19 08:56; Start 03/01/19 at 09:00 MARI NARANJO MD Mar 07, 2019 10:18
[2019-03-07] MEDS ORDERED: FOLI1TAB11 PO (11:19)
[2019-03-07] MEDS ORDERED: OXYC20TA40 PO (11:19)
[2019-03-07] MEDS ORDERED: DIGO0.12 PO (11:19)
[2019-03-07] MEDS ORDERED: MAG400TA PO (11:19)
[2019-03-07] MEDS ORDERED: METO1TAB87 PO (11:19)
[2019-03-07] MEDS ORDERED: XARE10TA PO (11:19)
[2019-03-07] MEDS ORDERED: PANT40TA3 PO (11:19)
[2019-03-07] MEDS ORDERED: METO10TA2 PO (11:19)
[2019-03-07] MEDS ORDERED: GABA-1171 PO (11:19)
[2019-03-07] MEDS ORDERED: ACET-683 PO (11:19)
[2019-03-07] MEDS ORDERED: THIA100TA PO (11:19)
[2019-03-07 12:00] VITALS: BP 106/68
--- NOTE | 2019-03-07 12:00 | PMRDS ---
DATE OF ADMISSION: 02/28/2019 DATE OF DISCHARGE: CHIEF COMPLAINT/DISCHARGE DIAGNOSIS: Left hip fracture. HISTORY OF PRESENT ILLNESS: This is a 58-year-old man with a past history of atrial fibrillation, jaw cancer status post radiation and surgery, chronic pain on opioids, chronic EtOH, who fell at home without any presyncopal symptoms onto his left side and presented to the [facility] emergency department (ED) on 02/23/2019 complaining of difficulty walking. EKG showed him to be in atrial fibrillation and pelvic x-ray demonstrating "comminuted intertrochanteric fracture of the proximal left femur with separate lesser trochanter fragment." He was cleared by medicine and underwent a closed hip intramedullary nailing on 02/24/2019 with significant postop anemia with a hemoglobin of 6.9 on 02/26/2019. He required blood transfusions and fecal occult blood test (FOBT) was found to be negative. The patient was also found to be in atrial fibrillation with rapid ventricular response (RVR) and was monitored closely on telemetry with changes made his medications. He was watched under the [facility] protocol for signs of alcohol withdrawal for an elevated admission EtOH level. Therapy evaluated him and found he had deficits and mobility in activities of daily living (ADLs) with intermittent episodes of dizziness and need of higher level of care and admitted to Acute rehabilitation unit (ARU) on 02/28/2019. PAST MEDICAL HISTORY: As per history of present illness (HPI). HOSPITAL COURSE: The patient was admitted and enrolled in a comprehensive physical therapy (PT), occupational therapy (OT) program. He received 24-hour nursing supervision and weekly team meetings were held to discuss his progress. The patient maintained his weight bearing as tolerated precautions and was tapered off his short-acting opioids maintained on OxyContin. He was also given thiamine and folic acid for history of chronic EtOH use and maintained on a prophylactic dose of Xarelto for deep venous thrombosis (DVT) prophylaxis. His aspirin was held and full dose Xarelto held for suspicion for gastrointestinal (GI) bleed. The patient instructed to followup with his full fashioned garment knitter regarding atrial fibrillation treatment. His hemoglobin stayed stable during his hospital course and he made quick gains in therapy and was deemed functionally medically stable to return home on 03/07/2019 after therapy. DISCHARGE MEDICATIONS: As per discharge instructions. FUNCTIONAL HISTORY: Upon discharge, the patient was modified independent with a rolling walker able to ambulate 200 feet, able to negotiate two stairs also modified. In occupational therapy he was modified independent for bathing, dressing, lower body dressing, upper body dressing and was provided with outpatient followup for physical therapy.
[2019-03-07 14:00] VITALS: BP 102/66
== END 2019-03-07 16:20 | disposition home or self-care (01) | DRG 561 ==
LOC: M PM&R 14:15
PROVIDERS: ADMIT Physical Medicine & Rehabilitation; ATTEND Physical Medicine & Rehabilitation
DX: S72.142D Displaced intertrochanteric fracture of left femur, subsequent encounter for closed fracture with routine healing (principal); I48.91 Unspecified atrial fibrillation; G89.29 Other chronic pain; F10.10 Alcohol abuse, uncomplicated; R42 Dizziness and giddiness; D63.8 Anemia in other chronic diseases classified elsewhere; Z79.891 Long term (current) use of opiate analgesic; Z92.3 Personal history of irradiation; Z85.818 Personal history of malignant neoplasm of other sites of lip, oral cavity, and pharynx; W18.09XD Striking against other object with subsequent fall, subsequent encounter; Y92.008 Other place in unspecified non-institutional (private) residence as the place of occurrence of the external cause; Z79.01 Long term (current) use of anticoagulants; Z79.899 Other long term (current) drug therapy; K59.00 Constipation, unspecified

== ENCOUNTER 2019-10-04 12:40 | Inpatient (IN) | payer OTHER ==
[2019-10-04] VITALS (24 sets, daily range): BP systolic 82–111; BP diastolic 52–82; O2SAT 93
[~2019-10-04] VITALS: Ht 182.9 cm; Wt 58.1 kg
[~2019-10-04 12:40] MED LIST changes: +ACET-683 PO; -DIGO0.12; +DIGO0.123; +DIGO0.123 PO; +FOLI1TAB11 PO; +MAG400TA PO; +METO1TAB87 PO; +PANT40TA3 PO; +THIA100TA PO; +TRAM50TA2 PO; +XARE10TA PO
[2019-10-04] MEDS ORDERED: NS 1,000 ML IV ONE ×2 (13:15→14:00)
[2019-10-04] MEDS ORDERED: METO50TA7 PO (13:29)
[2019-10-04] MEDS ORDERED: MORP30TASA PO (13:29)
--- NOTE | 2019-10-04 13:46 | REP ---
PORTABLE CHEST X-RAY: SINGLE VIEW. HISTORY: Dyspnea and cough. COMPARISON STUDY: February 23, 2019 FINDINGS: There is extensive opacification in the left hemithorax. There is pleural opacity in the lower half to two-thirds of the left hemithorax and infiltrate in the remaining aerated lung in the left upper lobe. The left mainstem bronchus terminates abruptly, question mucous plugging with atelectasis in the left lower lobe. There is some air density below the elevated left hemidiaphragm. There is also interstitial infiltrate in the right base and right perihilar region. Old healed rib fractures are noted on the right. IMPRESSION: Findings consistent with atelectasis of the left lower lobe probably in combination with new moderate-sized left pleural effusion. There are infiltrates bilaterally. Consider chest CT study. Electronically Signed by Juan Carlos Singh MD 10/04/2019 06:38 P
[2019-10-04 13:49] LABS: HEMATOCRIT 38.8 % (42.0-52.0); HEMOGLOBIN 13.4 g/dl (13.5-17.5); MEAN CORPUSCULAR HEMOGLOBIN 37.9 pg (27.0-33.0); MEAN CORPUSCULAR HGB CONC 34.5 g/dl (32.0-36.5); MEAN CORPUSCULAR VOLUME 109.6 fl (80.0-96.0); PLATELET COUNT, AUTOMATED 220 10^3/uL (150-450); RED BLOOD COUNT 3.54 10^6/uL (4.30-6.10); WHITE BLOOD COUNT 11.6 10^3/uL (4.0-10.0)
[2019-10-04] MEDS ORDERED: ISOVUE-370 76% 100ML VIAL (Q9967) As Ordered ONE (13:59)
[2019-10-04 14:05] LABS: INR 1.44; PROTHROMBIN TIME 17.3 SECONDS (11.8-14.0)
[2019-10-04 14:06] LABS: PARTIAL THROMBOPLASTIN TIME 38.2 SECONDS (25.0-38.4)
[2019-10-04 14:13] LABS: LYMPHOCYTES 3 % (16-44); MONOCYTES 2 % (0-5); NEUTROPHILS 95 % (28-66); PLATELET ESTIMATE NORMAL (NORMAL)
[2019-10-04 14:25] LABS: ALT/SGPT 28 U/L (12-78); BILIRUBIN,DIRECT 0.5 MG/DL (0.0-0.2); BILIRUBIN,TOTAL 0.8 MG/DL (0.2-1.0); BLOOD UREA NITROGEN 25 MG/DL (7-18); CARBON DIOXIDE LEVEL 24 MEQ/L (21-32); CHLORIDE LEVEL 93 MEQ/L (98-107); CK-MB VALUE MASS 3.3 NG/ML (<3.6); CPK CREATINE PHOSPHOKINASE 131 U/L (39-308); CREATININE FOR GFR 0.59 MG/DL (0.70-1.30); ETHYL ALCOHOL (ETHANOL) < 0.003 % (0.000-0.010); FREE T4 0.93 NG/DL (0.76-1.46); GLOMERULAR FILTRATION RATE > 60.0 (>56); GLUCOSE, FASTING 63 MG/DL (70-100); LIPASE 13 U/L (73-393); MB/CK RELATIVE INDEX 2.52 (< OR =4); NT-PRO BNP 6082 PG/ML (<125); POTASSIUM SERUM 4.9 MEQ/L (3.5-5.1); SODIUM LEVEL 131 MEQ/L (136-145); TOTAL PROTEIN 5.5 GM/DL (6.4-8.2); TROPONIN I < 0.02 NG/ML (< 0.10)
--- NOTE | 2019-10-04 14:44 | REP ---
CT of the chest with IV contrast: Comparison is the portable plain film study performed earlier today. There is a large left hydro pneumothorax compression atelectasis of the entire left lower lobe. There is no mediastinal shift. There is a heavy infiltrate posteriorly in the left upper lobe. There are infiltrate posteriorly in the right upper lobe and in the right lower lobe. There are no emboli in the pulmonary trunk or central pulmonary arteries. There are no emboli in the pulmonary lobe or segment branches. The thoracic aorta is unremarkable. Cardiac size is normal. There is no pericardial effusion. No mediastinal or right hilar adenopathy is identified. The left hilus is obscured. There is no axillary adenopathy. The visualized upper abdominal contents are unremarkable. Impression: Large left hydropneumothorax with complete compression atelectasis of the left lower lobe. Bilateral infiltrates. There are no pulmonary emboli. Electronically Signed by Papo Howard MD 10/04/2019 02:36 P
--- NOTE | 2019-10-04 14:52 | REP ---
CT study of the cervical spine without contrast: History: Injury in a fall. Technique: Helical scanning is acquired and overlapping 2 mm high resolution axial images were generated and reviewed at bone and soft tissue window settings. Coronal and sagittal multiplanar re-formations images are generated. CT findings: There is no evidence of cervical spine element fracture. No skull base fracture is seen. Cervical vertebral body heights are preserved. Alignment is normal. Facet joints are normally aligned bilaterally at each cervical level on multiplanar re-formations images. There is no evidence of intraspinal or paraspinal hematoma. No extra vertebral abnormality is seen. There is straightening of the normal cervical lordosis. Degenerative disc disease is seen at C5-6 with anterior posterior osteophyte formation. There is a degenerative change at the articulation between the dens and the anterior arch of C1. There is some anterior wedging with loss of vertebral body height at the T1 vertebral body. This is not apparent on prior CT studies of the neck from November 22, 2014 and January 23, 2015. This may represent a mild wedge compression fracture deformity although there is no visible soft tissue swelling and no definite cortical buckling is seen. Impression: Mild interval wedging T1 vertebral body without observable buckling or soft tissue swelling. Age indeterminate wedge compression fracture deformity. Degenerative disc disease at C5-6. No other evidence of fracture. No bony destructive lesion seen. Electronically Signed by Juan Carlos Singh MD 10/04/2019 02:44 P
--- NOTE | 2019-10-04 14:52 | REP ---
CT BRAIN WITHOUT CONTRAST: HISTORY: Injury in a fall. FINDINGS: The patient is rotated and obliqued within the scanner gantry. Preliminary digital home health lpn radiograph demonstrates a metallic screw-plate on the mandible. Bony calvarium appears intact. Visualized paranasal sinuses are clear. There is a chronic right subdural hygroma. This measures up to 12 mm in thickness and is seen along the right frontal and parietal lobe. There is slight shift of the midline to the left associated with this, although it is difficult to gauge because he is oblique in position. There is no evidence of parenchymal hemorrhage. No acute subdural or epidural fluid collection is seen. There is minimal generalized atrophy. No mass or midline shift is seen. IMPRESSION: Minimal diffuse atrophy. Chronic right subdural hygroma, 12 mm in greatest thickness, moderate in size. Otherwise negative. Electronically Signed by Juan Carlos Singh MD 10/04/2019 06:39 P
[2019-10-04] MEDS ORDERED: PIPERACILLIN/TAZOBACTAM SOD 3.375 GM in D5W MINI-BAG PLUS 50 ML IV ONE (15:00)
[2019-10-04] MEDS ORDERED: METOPROLOL 5 MG/5 ML VIAL IV STA (15:14)
--- NOTE | 2019-10-04 15:40 | REP ---
And pelvis with IV contrast, without bowel: Comparison is 03/31/2015. The study is performed contiguously with the chest CT this same date. The hepatic parenchyma is homogeneous. The gallbladder, pancreas and spleen are normal size and unremarkable. The adrenals are unremarkable. The kidneys are unremarkable. The abdominal aorta is unremarkable. There is no retroperitoneal adenopathy or mass. There is no bowel distension or obstruction. There is no ascites. Pelvis: There is no adenopathy or ascites. The pelvic bowel loops are unremarkable. The bladder is unremarkable. There is internal fixation of the left hip. There is mild right hip osteoarthritis. There is degenerative disc disease in the lumbar spine, not significantly changed. Impression: Essentially negative CT of the abdomen and pelvis. Electronically Signed by Papo Howard MD 10/04/2019 03:31 P
[2019-10-04] MEDS ORDERED: OXYC20TA40 PO (15:42)
[2019-10-04] MEDS ORDERED: DIGO0.123 PO (15:42)
[2019-10-04] MEDS ORDERED: PANT40TA3 PO (15:42)
[2019-10-04] MEDS ORDERED: FOLI1TAB11 PO (15:42)
[2019-10-04] MEDS ORDERED: THIA100T7 PO (15:42)
[2019-10-04] MEDS ORDERED: ASPI81TA85 PO (15:42)
[2019-10-04] MEDS ORDERED: NS 1,000 ML IV SCH (16:15)
[2019-10-04] MEDS ORDERED: DIGOXIN INJ 0.5 MG/2 ML AMP (J1160) IV STA ×3 (16:15→21:12)
[2019-10-04 16:58] LABS: FREE T3 < 0.5 PG/ML (2.2-4.0)
[2019-10-04 17:01] LABS: FOLATE 11.5 NG/ML (>5.4); VITAMIN B12 LEVEL 1671 PG/ML (247-911)
--- NOTE | 2019-10-04 17:12 | HPEPDOC ---
[facility] Medical History & Physical Date of Admission Oct 04, 2019 Date of Service: Oct 04, 2019 Attending Physician: CARYL MOSER MD History and Physical CHIEF COMPLAINT: Fell HISTORY OF PRESENT ILLNESS: The patient is a 58-year-old white male with a history of atrial fibrillation, jaw cancer status post jaw reconstruction, noncompliance of medical care, and hip fracture to the left hip. Presents to the ED via ambulance, with a report that he fell on Monday after losing his balance while attempting to put wood into the wood stove at his home on Monday morning. Patient states that he did not have the strength to get up and instead spent the last couple of days on the floor crawling to get to the phone. He was able to reach his cousin this afternoon and call for help. He denied loss of consciousness, denied any loss of bowel or bladder function. Denied any headaches. While on the floor. He was unable to take his medication as well as eat. On initial presentation, patient was dehydrated discovered to be in A. fib with RVR. Imaging was significant for Large left hydropneumothorax with complete compression atelectasis of the left lower lobe, bilateral infiltrates and no pulmonary emboli. He denies any chest pain, SOB, chest pressure or chest discomfort. Hospitalist team was called for admission. PAST MEDICAL HISTORY: Chronic atrial fibrillation Jaw cancer, s/p surgery and radiation therapy Chronic pain on chronic narcotics. PAST SURGICAL HISTORY: Jaw cancer resection and reconstruction. Left hip fracture. SOCIAL HISTORY: , however, lives alone, admits to tobacco use, admits to heavy drinking. He drinks approximately one 15 pack beer beverage per week. FAMILY HISTORY: Negative for cancer, coronary ALLERGIES: Please see below. REVIEW OF SYSTEMS: CONSTITUTIONAL: No fevers, denies chills, positive for weight loss, HEENT: No rhinorrhea, no itchy eyes, no congesions CARDIOVASCULAR: Positive for tachyarrhythmia arrhythmias RESPIRATORY: Not cough, No SOB, no issues to report GASTROINTESTINAL: No nausea, no vomiting, no difficulty swallowing, no pain with eating, no diarrhea HEMATOLOGICAL: No bleeding GENITOURINARY:No Issues HEMATOLOGIC/LYMPHATIC: No swelling, No bleeding PE GENERAL APPEARANCE: An old appearing gentleman, alert, older than stated age, cachectic elderly gentlemen, nontoxic SKIN: Dry, cracked skin, ENT: Neck is supple without JVD, jaw is status post surgical resection LUNGS: No palpable rib pain, unable to fully expand the lungs, dullness to percussion . Bilateral lung horner, no wheezing, no rhonchi, however there is coarse diminished breath sounds HEART: No murmurs, no rubs, no gallop. Heart rate is tachycardic, irregularly irregular rate ABDOMEN: Tender to palpate, hypoactive bowel sounds, no visible bruising. No v isible trauma EXTREMITIES: Moves all extremities equally. No gross deformities. PULSES: 2+ upper and lower extremity . HOME MEDICATIONS: Please see below. LABORATORY DATA: See below. IMAGING: CT angio chest Impression: Large left hydropneumothorax with complete compression atelectasis of the left lower lobe. Bilateral infiltrates. There are no pulmonary emboli. CT Spine, Cervical w/o Constrast Impression: Mild interval wedging T1 vertebral body without observable buckling or soft tissue swelling. Age indeterminate wedge compression fracture deformity. Degenerative disc disease at C5-6. No other evidence of fracture. No bony destructive lesion seen. HEAD CT: IMPRESSION: Minimal diffuse atrophy. Chronic right subdural hygroma, 12 mm in greatest thickness, moderate in size. Otherwise negative. Chest Xray IMPRESSION: Findings consistent with atelectasis of the left lower lobe probably in combination with new moderate-sized left pleural effusion. There are infiltrates bilaterally. Consider chest CT study. CT abd/pelvis Impression: Essentially negative CT of the abdomen and pelvis MICROBIOLOGY: Please see below. ASSESSMENT: The patient is a 58-year-old white male with a history of atrial fibrillation, jaw cancer status post jaw reconstruction, noncompliance of medical care, and hip fracture to the left hip. Presents to the ED via ambulance, with a report that he fell on Monday after losing his balance and has been on the floor s dylan then without food, water, and medication. He was discovered to be severely dehydrated and in A. fib with RVR Hypotension, secondary to severe dehydration, -Status post 2 L bolus in the ED -Continue IV fluid hydration 100 mL per hour -Strict I/O -Cardiac echo pending Mechanical fall to secondary deconditioning, heavy alcohol use, cachexia, low BMI, polypharmacy -PT, OT evaluation -[facility] protocol -Resume home medications Hypoxic respiratory failure, 2/2 decreased respiratory effort, possible obstructive lung disease from years of smoking, 2/2 Large left hydropneumothorax with complete compression atelectasis of the left lower lobe. -Carboxyhemoglobin -Will continue to monitor and repeat imaging of patient's chest. If saturation will persue intervention for his hydropneumothorax - , Continuous pulse oximetry Elevated BNP of 6082 secondary to rapid heart rate -Unlikely to relate to CHF due to patient's cachectic status, and dehydrated state. -Continue IV hydration -Echocardiogram pending Chronic A. fib -A. fib with RVR, received IV medication, digoxin and metoprolol in the ED -Telemetry -Resume home medication -Cardioloy consult Lactic acidosis, secondary to mechanical fall, secondary to dehydration, no signs of infection, -Blood cultures pending -Respiratory panel negative -Repeat lactic acid in a.m. Protein calorie malnutrition secondary to deconditioning secondary to inability to take care of himself -BMI 13.6 kg/m2 -Ensure protein shake as nutritional supplements -PFS consult for placement -Ordered vitamin D, ordered vitamin B12, folate -Magnesium pending History of heavy alcohol use -Patient reported drinking 15 beers per week -His last beer was prior to falling, unlikely to be in withdrawal at this point, we'll continue to monitor for seizures, and delirium tremens, -Telemetry -[facility] protocol Large left hydropneumothorax with complete compression atelectasis of the left lower lobe. -He is currently asymptomatic of any breathing difficulties or respiratory i ssues -Will continue monitor as we manage patient's other comorbidities -Abundant oxygen on board -Incentive spirometry -Repeat chest xray in the am Jaw cancer -Status post reconstruction DVT prophylaxis Lovenox Attending: I have independently seen and examined the patient and agree with the resident's note. Vital Signs Vital Signs Date Time Temp Pulse Resp B/P (MAP) Pulse Ox O2 Delivery O2 Flow Rate FiO2 10/04/19 13:59 10/04/19 13:16 98.1 98 18 85 Room Air Laboratory Data Labs 24H Laboratory Tests 2 10/04/19 12:51: Nucleated Red Blood Cells % (auto) 0.0, Neutrophils 95H, Lymphocytes (Manual) 3L, Monocytes (Manual) 2, Red Blood Cell Morphology NORMAL, Platelet Estimate NORMAL, Prothrombin Time 17.3H, Prothromb Time International Ratio 1.44, Activated Partial Thromboplast Time 38.2, Anion Gap 14, Glomerular Filtration Rate > 60.0, Lactic Acid Level 2.8*H, Calcium Level 8.0L, Total Bilirubin 0.8, Direct Bilirubin 0.5H, Aspartate Amino Transf (AST/SGOT) 69H, Alanine Aminotransferase (ALT/SGPT) 28, Alkaline Phosphatase 184H, Total Creatine Kinase 131, Creatine Kinase MB 3.3, Creatine Kinase MB Relative Index 2.52, Troponin I < 0.02, TB-Nid-I-Type Natriuretic Peptide 6082H, Total Protein 5.5L, Albumin 2.0L, Albumin/Globulin Ratio 0.57L, Lipase 13L, Thyroid Stimulating Hormone (TSH) 5.310H, Free Thyroxine 0.93, Ethyl Alcohol Level < 0.003 10/04/19 13:30: POC pH (Misc Panel) 7.478H, POC Base Excess (Misc Panel) -5.0L, POC Saturated Percent O2 (Misc) 90L, POC pO2 (Misc Panel) 53.0L, POC pCO2 (Misc Panel) 25.6L, POC HCO3 (Misc Panel) 18.9L, POC Total CO2 (Misc Panel) 20.0L 10/04/19 13:39: POC Total CO2 (Misc Panel) 23.0, POC Glucose (Misc Panel) 70, POC Sodium (Misc Panel) 126L, POC Potassium (Misc Panel) 4.7, POC Chloride (Misc Panel) 92L, POC Blood Urea Nitrogen (Misc Panel 23, POC Ionized Calcium (Misc Panel) 4.3L, POC Creatinine (Misc Panel) 0.7, POC Hematocrit (Misc Panel) 40.0 10/04/19 13:42: POC Lactate (Misc Panel) 2.72*H CBC/BMP Laboratory Tests 10/04/19 12:51 Microbiology Microbiology 10/04/19 Blood Culture, Received Pending 10/04/19 Respiratory Virus Panel (PCR) (NAT) - Final, Complete 10/04/19 Blood Culture, Received Pending Home Medications Scheduled Digoxin (Digoxin) 125 Mcg Tablet, 125 MCG PO DAILY Allergies Coded Allergies: No Known Allergies (Verified , 09/08/04) LEON CARUSO DO Oct 04, 2019 17:12 CARYL MOSER MD Oct 28, 2019 14:37
[2019-10-04] MEDS ORDERED: NS 500 ML IV ONE (17:15)
[2019-10-04 17:46] LABS: TOTAL 25(OH) VITAMIN D 20.2 NG/ML (30.0-100.0)
[2019-10-04] MEDS ORDERED: METOPROLOL 5 MG/5 ML VIAL IV SCH ×2 (19:45→20:00)
[2019-10-04] MEDS: METOPROLOL 5 MG/5 ML VIAL IV SCH ×2 (19:56→20:10)
--- NOTE | 2019-10-04 20:31 | ECGEPIP ---
[facility] - ED Test Date: 2019-10-04 Pat Name: FRANK ADLER Department: Room: [facility] Gender: Male Hand Model: francisco : 1960 Requested By: Negra Strauss Order Number: [id number] Reading MD: Negra Strauss Measurements Intervals Broussard Rate: 171 P: SC: 0 QRS: 101 QRSD: 121 T: -50 QT: 278 QTc: 469 Interpretive Statements ATRIAL FIBRILLATION WITH RAPID VENTRICULAR RESPONSE MARKED RIGHT AXIS DEVIATION RIGHT BUNDLE BRANCH BLOCK SEPTAL MYOCARDIAL INFARCTION, OF INDETERMINATE AGE ST DEVIATION AND MODERATE T-WAVE ABNORMALITY, CONSIDER ISCHEMIA INCREASED RATE 02/23/19 Electronically Signed on 10-04-2019 20:31:12 EST by Negra Strauss
[2019-10-04] MEDS: oxyCODONE 20 MG CR TAB PO SCH (21:00)
[2019-10-04] MEDS ORDERED: METOPROLOL TART 50 MG TAB PO SCH (21:00)
[2019-10-04] MEDS ORDERED: AMIODARONE 200 MG TAB (PACERONE) As Ordered ONE (21:22)
[2019-10-04] MEDS: MAGNESIUM OXIDE 400 MG TAB (MAG-OX) PO SCH (21:28)
[2019-10-04] MEDS: PIPERACILLIN/TAZOBACTAM SOD 4.5 GM in D5W MINI-BAG PLUS 50 ML IV SCH (21:28)
[2019-10-04] MEDS: AMIODARONE 200 MG TAB (PACERONE) PO SCH (21:28)
[2019-10-04 21:59] LABS: ABG BASE EXCESS -5.1 (-2.0-2.0); ABG O2 SATURATION 94.5 % (95.0-99.0); ABG PARTIAL PRESSURE CO2 32.6 mmHg (35.0-45.0); ABG PARTIAL PRESSURE O2 80.9 mmHg (75.0-100.0); ABG STANDARD HCO3 20.2 MEQ/L (22.0-26.0); ABG pH (ARTERIAL) 7.384 UNITS (7.350-7.450)
[2019-10-04] MEDS ORDERED: AMIODARONE HCL 150 MG in IV 1 EA IV ONE (22:30)
[2019-10-05] VITALS (57 sets, daily range): BP systolic 73–122; BP diastolic 47–75
[2019-10-05 00:02] LABS: CK-MB VALUE MASS 2.2 NG/ML (<3.6); MB/CK RELATIVE INDEX 3.55 (< OR =4); TROPONIN I 0.04 NG/ML (< 0.10)
[2019-10-05] MEDS: METOPROLOL 5 MG/5 ML VIAL IV SCH (01:05)
[2019-10-05 01:57] LABS: AMPHETAMINES LEVEL URINE NEGATIVE (NEGATIVE); BARBITURATES URINE NEGATIVE (NEGATIVE); BENZODIAZEPINES URINE NEGATIVE (NEGATIVE); CANNABINOIDS URINE POSITIVE (NEGATIVE); COCAINE METABOLITE URINE NEGATIVE (NEGATIVE); METHADONE URINE NEGATIVE (NEGATIVE); OPIATES URINE POSITIVE (NEGATIVE); PHENCYCLIDINE URINE NEGATIVE (NEGATIVE)
[2019-10-05] MEDS: PIPERACILLIN/TAZOBACTAM SOD 4.5 GM in D5W MINI-BAG PLUS 50 ML IV SCH ×4 (04:44→22:48)
[2019-10-05 05:11] LABS: HEMOGLOBIN 11.6 g/dl (13.5-17.5); MEAN CORPUSCULAR HEMOGLOBIN 37.5 pg (27.0-33.0); MEAN CORPUSCULAR HGB CONC 34.1 g/dl (32.0-36.5); PLATELET COUNT, AUTOMATED 165 10^3/uL (150-450); RED BLOOD COUNT 3.09 10^6/uL (4.30-6.10); WHITE BLOOD COUNT 10.1 10^3/uL (4.0-10.0)
[2019-10-05 05:42] LABS: BLOOD UREA NITROGEN 21 MG/DL (7-18); CALCIUM LEVEL 7.1 MG/DL (8.5-10.1); CARBON DIOXIDE LEVEL 25 MEQ/L (21-32); CHLORIDE LEVEL 102 MEQ/L (98-107); CK-MB VALUE MASS 1.9 NG/ML (<3.6); CPK CREATINE PHOSPHOKINASE 47 U/L (39-308); CREATININE FOR GFR 0.53 MG/DL (0.70-1.30); GLOMERULAR FILTRATION RATE > 60.0 (>56); GLUCOSE, FASTING 111 MG/DL (70-100); MAGNESIUM LEVEL 1.9 MG/DL (1.8-2.4); MB/CK RELATIVE INDEX 4.04 (< OR =4); POTASSIUM SERUM 3.9 MEQ/L (3.5-5.1); SODIUM LEVEL 135 MEQ/L (136-145); TROPONIN I 0.04 NG/ML (< 0.10)
--- NOTE | 2019-10-05 07:15 | REP ---
AP PORTABLE CHEST: 10/04/2019 at 07:06 PM. CLINICAL HISTORY: Central line placement. COMPARISON: CT angio chest, AP portable chest this afternoon. FINDINGS: There is a new left subclavian central line extending to the SVC. No evidence of apical pneumothorax. There is a loculated air-fluid collection in the mid and lower left chest however which is unchanged from the CT appears to be worsening infiltrates in the right lung. Cardiac silhouette is partially obscured by a large opacity in the mid and lower lung zone on the left and cannot be fully evaluated. IMPRESSION: 1. A new left subclavian central catheter extending into the SVC. No apical pneumothorax. A loculated air-fluid level in the left mid lung zone as on CT. 2. Extensive opacity left mid and lower lung zone unchanged . 3. There are some increased patchy infiltrates throughout the right mid and lower lung zone. Electronically Signed by Renato He MD 10/05/2019 07:48 P
--- NOTE | 2019-10-05 08:23 | REP ---
AP PORTABLE CHEST: 10/05/2019. CLINICAL HISTORY: Left hydropneumothorax. FINDINGS: The left subclavian central catheter is unchanged. Large left mid and lower lung zone loculated air fluid collection in the left chest compressing the residual lung with dense opacification of the left upper lung zone and diffuse infiltrates throughout the right lung. Lesser degree of inflation may contribute to the increased density seen in the right base versus a true increase in consolidation. Electronically Signed by Renato He MD 10/05/2019 07:49 P
[2019-10-05] MEDS ORDERED: ENOXAPARIN 40 MG/0.4 ML SYRINGE (J1650) SC SCH (09:00)
[2019-10-05] MEDS: DIGOXIN 0.125 MG TAB PO SCH (09:00)
[2019-10-05] MEDS ORDERED: AMIODARONE 200 MG TAB (PACERONE) PO SCH (09:00)
[2019-10-05] MEDS ORDERED: DIGOXIN INJ 0.5 MG/2 ML AMP (J1160) IV ONE (09:30)
[2019-10-05] MEDS: ASPIRIN 81 MG ENTERIC TAB PO SCH (09:56)
[2019-10-05] MEDS: FOLIC ACID 1 MG TAB PO SCH (09:56)
[2019-10-05] MEDS: THIAMINE 100 MG TAB PO SCH (09:56)
[2019-10-05] MEDS: MAGNESIUM OXIDE 400 MG TAB (MAG-OX) PO SCH ×2 (09:56→20:25)
[2019-10-05] MEDS: PANTOPRAZOLE 40MG TAB (PROTONIX) PO SCH (09:56)
[2019-10-05] MEDS: AMIODARONE 200 MG TAB (PACERONE) PO SCH ×4 (09:56→20:25)
[2019-10-05] MEDS: METOPROLOL TART 25 MG TABLET PO SCH ×4 (10:00→23:05)
--- NOTE | 2019-10-05 11:15 | ECHO ---
DATE OF PROCEDURE: 10/05/2019 DATE OF : 1960 AGE: 59 GENDER: Male HEIGHT: 72 inches WEIGHT: 101 pounds BODY SURFACE AREA: 1.6 m2 INPATIENT: Intensive care unit (ICU) Room 3203 REFERRING PHYSICIAN: Dr. Shiv Berry INDICATION: Dyspnea. Atrial fibrillation with rapid ventricular response. MEASUREMENTS: 2-D Measurements: RV: 4.2 cm LV: 2.8 cm Septum: 0.9 cm Posterior wall: 0.8 cm Aortic root: 3.6 cm LA: 3.4 cm LVEF: 70% Doppler Measurements: AV: 1.24 m/sec LVOT: 0.8 m/sec LVOT diameter: 2.0 cm MV: E 86 Early mitral deceleration time: 180 ms E prime medial: 11.5, E prime lateral: 14 Average E/E prime ratio: 6.7/PCWP: 10.3 PV: 0.9 m/sec Pulmonary artery acceleration time: 88 ms PASP: 45-50 mmHg IVC: 1.6 cm COMMENTS: Underlying atrial fibrillation with rapid ventricular response. Technically challenging study in light of the patient's body habitus but diagnostically useful information was still obtained. M-mode and two-dimensional echocardiography was performed with pulsed, continuous wave, color flow and tissue Doppler studies. Normal left ventricular size and wall thickness with paradoxical septal wall motion due to right ventricular pressure overload yet preserved global systolic function with hyperkinesis of the other left ventricular wall segments. Normal left atrial size and Doppler assessment of mean left atrial pressure. At least mildly dilated right ventricle with right ventricular free wall hypokinesis and Doppler evidence of at least moderate pulmonary hypertension. At least moderately dilated right atrium but currently normal sized inferior vena cava with respiratory collapse against an elevated central venous pressure at this time. Normal appearing and functioning aortic valve. Normal aortic dimensions. Slightly thickened mitral apparatus with adequate leaflet excursion and no posterior systolic buckling and only very mild posteriorly directed insufficiency. Normal appearing tricuspid valve with some insufficiency but this was challenging in light of image quality. No apparent intracardiac mass or pericardial effusion but sizable left pleural effusion.
[2019-10-05] MEDS ORDERED: LACTATED RINGER'S 1000 ML IV ONE (11:30)
[2019-10-05] MEDS: oxyCODONE 20 MG CR TAB PO SCH (12:03)
--- NOTE | 2019-10-05 13:09 | IPNPDOC ---
Text Note Date of Service The patient was seen on 10/05/19. NOTE The patient is a 58-year-old white male with a history of atrial fibrillation, jaw cancer status post jaw reconstruction, noncompliance of medical care, and hip fracture to the left hip. Presents to the ED via ambulance, with a report that he fell on Monday after losing his balance and has been on the floor since then without food, water, and medication. He was discovered to be severely dehydrated and in A. fib with RVR Subjective: A subclavian central line was place last night. Overnight he continues to be tachycardic with and somewhat hypotensive. This morning he complianed of bilateral hip pain. He denies any chest pain, SOB, chest pressure or chest discomfort. PE GENERAL APPEARANCE: cachectic elderly gentlemen, nontoxic, currently on nasal canula SKIN: Dry, cracked skin, left subclavian central line in placed ENT: Neck is supple without JVD, jaw is status post surgical resection LUNGS: god air entry, no wheezing, no rhonchi, however there is coarse diminished breath sounds HEART: No murmurs, no rubs, no gallop. Heart rate is tachycardic, irregularly irregular rate ABDOMEN: Tender to palpate, hypoactive bowel sounds, no visible bruising. No visible trauma EXTREMITIES: Moderate hint tenderness PULSES: 2+ upper and lower extremity . Echo COMMENTS: Underlying atrial fibrillation with rapid ventricular response. Technically challenging study in light of the patient's body habitus but diagnostically useful information was still obtained. M-mode and two-dimensional echocardiography was performed with pulsed, continuous wave, color flow and tissue Doppler studies. Normal left ventricular size and wall thickness with paradoxical septal wall motion due to right ventricular pressure overload yet preserved global systolic function with hyperkinesis of the other left ventricular wall segments. Normal left atrial size and Doppler assessment of mean left atrial pressure. At least mildly dilated right ventricle with right ventricular free wall hypokinesis and Doppler evidence of at least moderate pulmonary hypertension. At least moderately dilated right atrium but currently normal sized inferior vena cava with respiratory collapse against an elevated central venous pressure at this time. Normal appearing and functioning aortic valve. Normal aortic dimensions. Slightly thickened mitral apparatus with adequate leaflet excursion and no posterior systolic buckling and only very mild posteriorly directed insufficiency. Normal appearing tricuspid valve with some insufficiency but this was challengin g in light of image quality. No apparent intracardiac mass or pericardial effusion but sizable left pleural effusion. ASSESSMENT: The patient is a 58-year-old white male with a history of atrial fibrillation, jaw cancer status post jaw reconstruction, noncompliance of medical care, and hip fracture to the left hip. Presents to the ED via ambulance, with a report that he fell on Monday after losing his balance and has been on the floor since then without food, water, and medication. He was discovered to be severely dehydrated and in A. fib with RVR Chronic A. fib -Cardioloy consult -25 mg of PO metoptolol q6h -Telemetry -Continue home meds -IV rate control medications as per Cardiology -Echo: See above for results Hypoxic respiratory failure, 2/2 decreased respiratory effort, possible obstructive lung disease from years of smoking, 2/2 Large left hydropneumothorax with complete compression atelectasis of the left lower lobe. -Will continue to monitor and repeat imaging of patient's chest. If saturation will pursue intervention for his hydropneumothorax - Continuous pulse oximetry -Supplemental Oxygen Hypotension, secondary to severe dehydration, -Status post 2 L bolus in the ED -Continue IV hydration -Strict I/O -Cardiac echo pending Large left hydropneumothorax with complete compression atelectasis of the left lower lobe. -He is currently asymptomatic of any breathing difficulties or respiratory issues -Will continue monitor as we manage patient's other comorbidities -Abundant oxygen on board -Incentive spirometry Mechanical fall secondary to deconditioning, heavy alcohol use, cachexia, low BMI, polypharmacy -PT, OT evaluation -[facility] protocol -Resume home medications Elevated BNP of 6082 secondary to rapid heart rate -Unlikely to relate to CHF -Continue IV hydration -See echo results above Lactic acidosis, secondary to mechanical fall, secondary to dehydration, no signs of infection, -Blood cultures pending -Respiratory panel negative -Repeat lactic is normal Protein calorie malnutrition secondary to deconditioning secondary to inability to take care of himself -BMI 13.6 kg/m2 -Ensure protein shake as nutritional supplements -PFS consult for placement Hypervitaminosis b12 -Mostly likely due to excessive supplementation History of heavy alcohol use -Patient reported drinking 15 beers per week -His last beer was prior to falling, unlikely to be in withdrawal at this point, we'll continue to monitor for seizures, and delirium tremens, -Telemetry -[facility] protocol Jaw cancer -Status post reconstruction DVT prophylaxis [place] Attending: I have independently seen and examined the patient and agree with the resident's note. VS,Dennisbone, I+O VS, Dennisbone, I+O Laboratory Tests 10/04/19 12:51 10/05/19 04:45 10/05/19 04:46 Vital Signs Date Time Temp Pulse Resp B/P (MAP) Pulse Ox O2 Delivery O2 Flow Rate FiO2 10/05/19 12:29 82/51 (61) High Flow Cannula 6.0 10/05/19 12:01 98.3 87 20 93 I&O- Last 24 Hours up to 6 AM 10/05/19 06:00 Intake Total 3025 ml Output Total 460 ml Balance 2565 ml LEON CARUSO DO Oct 05, 2019 13:09 CARYL MOSER MD Oct 28, 2019 18:31
--- NOTE | 2019-10-05 13:21 | RO ---
DATE OF PROCEDURE: 10/04/2019 PREOPERATIVE DIAGNOSIS: Hypotension. POSTOPERATIVE DIAGNOSIS: Hypotension. PROCEDURE PERFORMED: Left subclavian CVP placement. SURGEON: Nile Vines MD PHYSICAL MEDICINE TEACHER: Dr. Hopper DESCRIPTION OF PROCEDURE: The patient was seen in the intensive care unit, hypotensive. The procedure was reviewed with the patient and/or all the possible complications pertaining thereto including but not limited to bleeding, infection, medication reaction and lung collapse. Written informed consent were obtained and placed on the chart. The patient was placed in the supine position. The skin over the left subclavian vein was prepped with Chloraprep, draped in a sterile fashion. A #25-gauge needle was used to raise a skin wheal with 1% lidocaine. Thereafter a #17-gauge introducer needle was placed in through the skin and into the left subclavian vein. Free return of venous blood was obtained. The vascular tip guidewire was advanced. A small incision made adjacent to the guidewire and a triple-lumen catheter placed over the guidewire to a distance of 17 cm. Catheter was sewn in place using #3-0 silk suture. A sterile dressing was applied. The patient tolerated the procedure well and suffered no apparent complication.
--- NOTE | 2019-10-05 14:47 | CR ---
DATE OF CONSULTATION: 10/05/2019 CARDIOLOGY CONSULTATION REFERRING PHYSICIAN: Dr. Shiv Georges. INDICATION: Atrial fibrillation with rapid ventricular response. Hypotension. HISTORY: This 59-year-old without children, disabled resident of [place] has had a history of dilated cardiomyopathy/cor pulmonale, abnormal EKG and atrial fibrillation dating back to 05/2002. Cardiac catheterization at that time showed no evidence of obstructive coronary disease, but left ventricular ejection fraction of 20% with pulmonary hypertension. No primary valvular abnormality. Longstanding history of heavy smoking and alcoholism. Arrangements were even made for him to be evaluated by the [facility] heart transplant program. Has been on combination digoxin, beta musa and diuretic therapy since that time. Has had Hospital of readmissions for suboptimal heart rate control and decompensation. He was not found to be a candidate for transplantation by the [facility] team. Has had a total of five admissions for the same problem. At this point, the patient is quite lethargic and unable to provide much in the way of any history. According to the emergency room (ER) report yesterday, apparently had been off his medications and had been drinking, complaining of increasing weakness for several days. He finally contacted his cousin, who called an ambulance. He was found to be on the floor, profoundly weak, with initial ER vital signs of heart rate initially 96, then reported at 166 bpm. Initial blood pressure 108/62, subsequently reported as 84/61, respiratory rate 18, with initial oxygen saturation of 85 on room air, up to 92% on supplemental oxygen. Was afebrile. Workup showed a hemoglobin of 13.4, mild leukocytosis of 11.6 thousand, macrocytosis. Normal platelet count. PT/INR has 17.3/1.4. Arterial blood gas showed a pH of 7.38, pCO2 of 33, pO2 of 81. Electrolytes were normal with BUN 25, up from 15 February 2017, creatinine 0.59 up from 0.44 in February. Random glucose 63. Slowly elevated SGOT and alkaline phosphatase, with normal total bilirubin. Troponin I level was negative. CPK was only 131. Albumin low at 2.0. BNP level of 6008 and 82. Toxicology screen was positive for opiates and cannabis, negative for alcohol. Urinalysis was +1 positive for ketones, but no protein or glucose and negative leukocyte esterase. Previous hepatitis B screen negative. Chest x-ray reported as showing extensive opacification of the left hemithorax with pleural effusion to thirds up. Query infiltrate in the remaining aerated segment of the left upper lobe. Left mainstem bronchus terminating abruptly suggestive of mucous plugging. Elevated left hemidiaphragm. Interstitial infiltrate right base and right perihilar region. Old healed right rib fractures. Chest CT scan was reported as showing normal heart size and thoracic aorta. No pericardial effusion. No pulmonary emboli. Large left hydropneumothorax with complete compression of the left lower lobe. Bilateral infiltrates, especially the left upper lobe posteriorly. No mediastinal or hilar adenopathy. Left hilus is obscured. Initial EKG at 1:00 p.m. showed underlying atrial fibrillation with rapid ventricular response, right axis with right bundle branch block, increased rate from 02/2019. Patient was given intravenous digoxin and intravenous (IV) fluid because of his hypotension and subsequently admitted by the hospitalist to the intensive care unit. Cardiology consultation was placed to help with rate control in light of his relative hypotension. Additional digoxin was advised with a trial of low-dose IV metoprolol and then subsequently, the addition of amiodarone to help with rate control with his ongoing hypotension. This morning, the patient is lying flat in his bed in the intensive care unit (ICU) and is quite lethargic, minimally responsive to questioning, but denies chest pain, shortness of breath, any awareness of his heart action. KNOWN PAST CARDIAC DISEASE/EVENTS/TESTS: 05/2002, initial presentation for atrial fibrillation with rapid ventricular response and congestive heart failure. Echocardiogram showing a mildly dilated left ventricle with normal wall thickness, markedly impaired global systolic function, left ventricular ejection fraction (LVEF) of 10%, prominently dilated right heart chambers, and at least moderately severe pulmonary hypertension, dilated inferior vena cava (IVC) with absent respiratory collapse in keeping with right heart failure. No intrinsic structural valvular disease but mild mitral insufficiency and tricuspid insufficiency. No pericardial effusion. Cardiac catheterization,06/2002, [facility], [place], confirmed a dilated and markedly hypokinetic left ventricle with elevated right heart pressures but no evidence of obstructive coronary disease. Last echocardiogram, 11/22/2014, did not appear to show any significant change other than normalization of his left ventricle and ejection fraction, despite obvious paradoxical septal wall motion abnormality with his cor pulmonale. Last chest x-ray, 02/23/2019, showed obvious hyperinflated lung horner with reportedly normal appearing heart size. Metallic clips, both auxiliary regions, following lymph node dissections. Last electrocardiogram showed underlying atrial fibrillation with heart rate varying from 95-140 bpm with right bundle branch block. CORONARY RISK FACTORS: Age. Male gender. Very longstanding heavy smoking history. Prior hypertension. No diabetes mellitus or hyper cholesterolemia. No family history of premature coronary heart disease. No symptomatic carotid vascular disease. OTHER PAST MEDICAL/SURGICAL HISTORY: 1. Alcoholism complicated by alcoholic gastritis and prior gastrointestinal (GI) bleeding. 2. Posttraumatic knee degenerative changes. 3. Prior rib fractures, right side, 2008. 4. Smoking induced chronic bronchitis with intermittent exacerbations. 5. 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 6. Gastroesophageal reflux. 7. Left femur fracture, 02/2019. SYSTEMS REVIEW: Unfortunately, this could not be obtained from the patient, but according to family members, he has been quite anorexic, drinking alcohol and had had diarrhea. No recent bleeding problems, profound weakness. MEDICATIONS: His medication list was supposedly: - digoxin 0.125 mg daily - metoprolol tartrate 50 mg twice a day - aspirin 81 mg daily (not on oral anticoagulation because of prior GI bleeding) - Protonix 40 mg daily - thiamine 100 mg by mouth daily - magnesium oxide 400 mg twice a day - folic acid 1 mg daily - morphine sulfate 30 mg ER tablets one twice a day - oxycodone 20 mg tablets by mouth twice a day ALLERGIES: None known. PHYSICAL EXAMINATION: CONSTITUTIONAL: Thin, cachectic, lethargic middle-aged male, appearing older, laying without distress virtually flat in the ICU. No pallor or cyanosis, on supplemental oxygen by nasal prongs at 6 liters. VITAL SIGNS: Current heart rate 90s per minute and irregular, blood pressure 82/50, respiratory rate 18, oxygen saturation 93% on high-flow cannula. Afebrile. Weight 114 pounds, height 72 inches. Body mass index (BMI) 15.5 EYES: Appear somewhat sunken, but no pallor, icterus or petechiae. No xanthelasma. ENT /MOUTH: Normal oral moisture. No central cyanosis. Dentition in poor repair with obvious prior lower mandible surgery post cancer resection. History of radiation therapy. NECK: Trachea appears to be somewhat deviated to the right. Slightly increased anteroposterior chest diameter with reduced chest excursion. Stony dullness left hemithorax with minimal air entry left upper lobe anteriorly. Few scattered inspiratory rales right side. Prolongation of expiration, but no audible wheeze. CARDIOVASCULAR: Neck veins did not appear to be elevated. Apical impulse was not palpable. Heart sounds were quite distant, but variable. No audible murmur. Normal carotid upstrokes, with a variable volume related to his arrhythmia. No bruits. Upper extremity and femoral pulses were symmetrical and normal. Pedal pulses were slightly reduced. Has plus/minus lower extremity pitting. Obvious necrotic ulcer dorsal aspect right foot. Some rubor his distal lower legs. Abdominal aorta was not palpable. No bruits. GASTROINTESTINAL (GI): Slightly protuberant, tympanic abdomen with reduced bowel sounds. Liver span 8 cm in the right midline. Spleen tip was not palpable. Rectal examination not indicated. MUSCULOSKELETAL: No obvious joint deformities. Proximal muscle wasting and reduced strength, but normal tone. NEUROLOGICAL/PSYCHOLOGICAL: Lethargic, falling asleep between questions, currently aware he is in hospital. Prior lower jaw surgery, but no asymmetrical facial or extremity movement. No involuntary movements. SKIN: Unkempt, with filthy nails. Body odor. No rashes, but erythematous rubor, both lower legs as mentioned. INVESTIGATIONS: EKG, chest x-ray, as mentioned above. Chest CT angiography: Study performed yesterday was reviewed independently. This shows normal thoracic aortic diameter without evidence of atherosclerotic change. The origins of his coronary arteries could be visualized and appear to be normal. His pulmonary trunk was dilated, as were the proximal pulmonary vessels, with tapering of peripheral vasculature. Left ventricular size was normal at 3.3 cm, with normal left ventricular (LV) wall thickness, mildly dilated left atrium, moderately dilated right ventricle and prominently dilated right atrium, inferior vena cava measured 2.5 cm. No pericardial effusion. Marked left pleural effusion with infiltrates, as described by radiology. EKG: Only available study from yesterday at 1:00 p.m. showed underlying atrial fibrillation with rapid ventricular response averaging 171 bpm. Low voltages with right axis deviation and right bundle branch block. Could not rule out prior septal infarction from EKG appearance, but as mentioned above, has prior cardiac catheterization showing no evidence of coronary disease. Primary lateral repolarization abnormalities. Echocardiogram: Study performed earlier today was read by myself. Official report separately. In summary, this shows a normal left ventricular size wall thickness, an obvious paradoxical septal wall motion abnormality related to right ventricular pressure overload. Left atrial size was actually normal. Despite his left ventricular septal motion abnormality, left ventricular ejection fraction was still estimated at 70%. At least mildly dilated right ventricle, with right ventricular hypokinesis and estimated pulmonary arterial systolic pressure of at least 15 mmHg. Moderately dilated right atrium, but normal IVC size and collapse at this time against an elevated central venous pressure. Normal-appearing aortic valve with no dysfunction. Mitral valve slightly thickened with very mild insufficiency. No pericardial effusion. IMPRESSION/PLAN 1. Atrial fibrillation (permanent): Presents with suboptimal ventricular response to his chronic atrial fibrillation related to medication noncompliance and alcoholism. Seems to be currently controlled with additional low-dose digoxin administered intravenously and use of low-dose amiodarone. We had suggested using this for rate control yesterday, and he remains on 200 mg four times a day for rate control in addition to digoxin and low-dose metoprolol. Metoprolol has hold parameter for heart rate less than 90. Currently on low-dose aspirin and [id number] heparin, but not oral anticoagulant because of his prior history of GI bleeding. 2. Abnormal EKG/right bundle branch block: Conduction abnormality and axis believed to be related to his cor pulmonale. No evidence of bradyarrhythmia or high-grade AV block, despite combination negative chronotropic therapy. Remains on monitor. No reported chest pain, with negative serial Troponin I levels. Remote coronary angiography was normal. 3. Cor pulmonale: Well documented, at least moderately severe pulmonary hypertension and right heart enlargement, with prior low right heart failure dating back to 2001. Still has an elevated pulmonary arterial pressure, but his estimated central venous pressure at this time was low related to his anorexia and recent diarrhea. Has been given ample IV fluid replacement therapy, yet has persistent relative hypotension, with only mild prerenal azotemia at this time. 4. History of dilated cardiomyopathy: Believed to be alcohol mediated, with at least mildly dilated left ventricle with marked impairment of global left ventricular systolic function. Curiously, despite his ongoing smoking and alcohol intake, his current estimated left ventricular ejection fraction was within normal limits, even with a septal wall motion abnormality due to right ventricular pressure overload. Previously documented mildly dilated left atrium has also normalized, with current estimated mean left atrial pressure within normal limits. Related to his cachectic state, ongoing hypotension and impaired mental status, I believe his prognosis remains quite guarded. His large localized left pleural effusion cannot be explained by elevated pulmonary venous or central venous hypertension and may well represent a result of trauma. Current respiratory status being monitored by pulmonary medicine.
[2019-10-05] MEDS ORDERED: NS 500 ML IV ONE (15:45)
[2019-10-05] MEDS: ACETAMINOPHEN TAB 650MG DOSE (2X325MG) PO PRN (17:28)
[2019-10-05] MEDS: MIDODRINE 5 MG TAB PO SCH (20:25)
[2019-10-06] VITALS (73 sets, daily range): BP systolic 72–106; BP diastolic 47–73
[2019-10-06] MEDS: MORPHINE 2 MG/ML 1ML VIAL (J2270) IV PRN (00:27)
[2019-10-06] MEDS: PIPERACILLIN/TAZOBACTAM SOD 4.5 GM in D5W MINI-BAG PLUS 50 ML IV SCH ×4 (03:49→21:21)
[2019-10-06] MEDS: ACETAMINOPHEN TAB 650MG DOSE (2X325MG) PO PRN ×2 (03:49→10:07)
[2019-10-06] MEDS: METOPROLOL TART 25 MG TABLET PO SCH ×3 (05:10→18:00)
[2019-10-06 05:17] LABS: HEMATOCRIT 32.6 % (42.0-52.0); HEMOGLOBIN 11.2 g/dl (13.5-17.5); MEAN CORPUSCULAR HEMOGLOBIN 37.3 pg (27.0-33.0); MEAN CORPUSCULAR HGB CONC 34.4 g/dl (32.0-36.5); MEAN CORPUSCULAR VOLUME 108.7 fl (80.0-96.0); PLATELET COUNT, AUTOMATED 104 10^3/uL (150-450); WHITE BLOOD COUNT 7.2 10^3/uL (4.0-10.0)
[2019-10-06] MEDS ORDERED: IPRATROPIUM 0.5MG/ALBUTEROL 2.5MG INH SOL UD 3ML (DUONEB)(J7620) As Ordered ONE (05:31)
[2019-10-06 05:36] LABS: BLOOD UREA NITROGEN 19 MG/DL (7-18); CALCIUM LEVEL 7.1 MG/DL (8.5-10.1); CARBON DIOXIDE LEVEL 28 MEQ/L (21-32); CHLORIDE LEVEL 103 MEQ/L (98-107); CREATININE FOR GFR 0.49 MG/DL (0.70-1.30); GLOMERULAR FILTRATION RATE > 60.0 (>56); GLUCOSE, FASTING 132 MG/DL (70-100); POTASSIUM SERUM 3.2 MEQ/L (3.5-5.1); SODIUM LEVEL 136 MEQ/L (136-145)
[2019-10-06] MEDS: IPRATROPIUM 0.5MG/ALBUTEROL 2.5MG INH SOL UD 3ML (DUONEB)(J7620) NEB PRN (05:40)
[2019-10-06] MEDS ORDERED: POTASSIUM CHLORIDE 10 MEQ SR TABLET PO ONE (06:00)
[2019-10-06] MEDS: KCL 20MEQ IN 100ML SWI (KRUN) 20 MEQ in IV 1 EA IV SCH ×4 (06:13→07:19)
[2019-10-06 07:07] LABS: MAGNESIUM LEVEL 1.9 MG/DL (1.8-2.4)
[2019-10-06] MEDS: FOLIC ACID 1 MG TAB PO SCH (08:58)
[2019-10-06] MEDS: MAGNESIUM OXIDE 400 MG TAB (MAG-OX) PO SCH ×2 (08:58→21:20)
[2019-10-06] MEDS: THIAMINE 100 MG TAB PO SCH (08:58)
[2019-10-06] MEDS: PANTOPRAZOLE 40MG TAB (PROTONIX) PO SCH (08:58)
[2019-10-06] MEDS: MIDODRINE 5 MG TAB PO SCH ×4 (08:59→15:59)
[2019-10-06] MEDS: AMIODARONE 200 MG TAB (PACERONE) PO SCH ×5 (08:59→21:21)
[2019-10-06] MEDS: ASPIRIN 81 MG ENTERIC TAB PO SCH (08:59)
--- NOTE | 2019-10-06 09:43 | IPNPDOC ---
Text Note Date of Service The patient was seen on 10/06/19. NOTE S: Patient seen and examined at bedside. No new medical complaints this jovanyn ing. Discussed advanced directives again, and he wishes to remain full code. O: GENERAL: cachectic, disheveled, appears older than stated age, chronically ill appearing HEENT: nasal cannula in place, NC Chest: diminished breath sounds throughout, left subclav CVC in place Heart: +S1S2, irregularly irregulary, tachycardic Abd: soft, NT, +BS Ext: no edema, 2x2cm chronic wound on dorsal aspect of right foot A/P: 58-year-old white male with a history of a-fib, jaw cancer s/p jaw reconstruction, noncompliance with medical care, and hip fracture to the left hip, presents to the ED via ambulance, with a report that he fell a few days ago after losing his balance and has been on the floor since then without food, water, and medication. He was found to be severely dehydrated and in A. fib with RVR #afib/RVR - follow as per cardiology - assistance appreciated - amiodarone/digoxin/lopressor - continue telemetry monitoring #hypotension - trial of midodrine started overnight #acute hypoxic respiratory failure - multi-factorial - decreased respiratory effort, possible obstructive lung disease, large left hydropneumothorax with complete compression atelectasis of LLL - continue wean O2 as tolerated #hydropneumothorax - large left hydropneumothorax with complete compression atelectasis of the left lower lobe. - pulm aware - respiratory status continues to improve without drainage #fall - PT/OT #medical non-compliance - complicates care #right foot wound - wound care c/s - patient states he dropped hot embers on foot by accident several months ago #alcohol abuse -CIWA protocol #Lactic acidosis - resolved #Protein calorie malnutrition/FTT -BMI 13.6 kg/m2 -Ensure protein shake as nutritional supplements -PFS consult for placement - nutrition evaluation #Jaw cancer -Status post reconstruction #DVT prophylaxis - mechanical VS,Fishbone, I+O VS, Fishbone, I+O Laboratory Tests 10/06/19 05:03 Vital Signs Date Time Temp Pulse Resp B/P (MAP) Pulse Ox O2 Delivery O2 Flow Rate FiO2 10/06/19 09:01 92 88/69 (75) 90 High Flow Cannula 2.0 10/06/19 08:01 98.3 42 I&O- Last 24 Hours up to 6 AM 10/06/19 06:00 Intake Total 1780 ml Output Total 225 ml Balance 1555 ml CARYL MOSER MD Oct 06, 2019 09:43
--- NOTE | 2019-10-06 11:04 | ECGEPIP ---
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
[2019-10-06] MEDS: DIGOXIN 0.125 MG TAB PO SCH (11:40)
[2019-10-06] MEDS ORDERED: flumazeniL 0.5 MG/5 ML VIAL As Ordered ONE (12:33)
[2019-10-06] MEDS ORDERED: MIDAZOLAM INJ 2 MG/2 ML VIAL (J2250) As Ordered ONE (12:34)
[2019-10-06] MEDS ORDERED: LIDOCAINE 1% MDV 20ML VIAL As Ordered ONE ×2 (12:34→13:06)
[2019-10-06] MEDS ORDERED: MIDAZOLAM INJ 2 MG/2 ML VIAL (J2250) IV ONE (13:00)
[2019-10-06] MEDS ORDERED: LIDOCAINE 1% MDV 20ML VIAL SC ONE ×2 (13:00→14:45)
[2019-10-06] MEDS ORDERED: ATROPINE SULF 1MG/10ML SYRINGE (J0461) As Ordered ONE (13:35)
[2019-10-06] MEDS ORDERED: flumazeniL 0.5 MG/5 ML VIAL IV STA (14:16)
--- NOTE | 2019-10-06 14:28 | REP ---
AP PORTABLE CHEST: 10/06/2019. Comparison: AP chest 10/05/2019, 10/04/2019, CT 10/04/2019. Clinical history: Left chest tube insertion. Findings: Extensive bilateral infiltrates are again seen, greatest in the right mid and lower lung zone and in the left mid lung zone. The dense opacity and loculated air-fluid collection in the left base has been entered with a chest tube extending up towards the left hilum. There is a residual small basilar pneumothorax without apical pneumothorax on the left. No tension component. Atelectatic changes in the adjacent left lower lobe along with the infiltrate above that in the left mid upper lung zone are unchanged. There is a left subclavian central catheter with tip in SVC as before. Impression: 1. New left base chest tube draining large volume of fluid from a loculated air-fluid collection. Residual left lateral base and subpulmonic pneumothorax. 2. Extensive bilateral infiltrates as described previously unchanged. Left subclavian catheter unchanged. Electronically Signed by Renato He MD 10/06/2019 08:31 P
[2019-10-06] MEDS ORDERED: NS 1,000 ML IV SCH (14:30)
[2019-10-06 14:38] LABS: SOURCE, BODY FLUID PLEURAL
[2019-10-06 14:39] LABS: APPEARANCE, BODY FLUID TURBID (CLEAR); PLEURAL FL COLOR BROWN (COLORLESS)
[2019-10-06 14:45] LABS: SOURCE, BODY FLUID pH PLEURAL
[2019-10-06 14:46] LABS: PH BODY FLUID < 6.500 UNITS (NOT ESTABLISHED)
[2019-10-06 15:03] LABS: LDH LACTATE DEHYDROGENASE 270 U/L (87-241)
[2019-10-06 15:19] LABS: AMYLASE, BODY FLUID 5 U/L (NOT ESTABLISHED); CHOLESTEROL, BODY FLUID < 50 MG/DL (NOT ESTABLISHED); SOURCE, BODY FLUID ALBUMIN PLEURAL; SOURCE, BODY FLUID AMYLASE PLEURAL; SOURCE, BODY FLUID CHOL PLEURAL; SOURCE, BODY FLUID GLUCOSE PLEURAL; SOURCE, BODY FLUID TOT PROTEIN PLEURAL; SOURCE, BODY FLUID TRIG PLEURAL; TOTAL PROTEIN, BODY FLUID 2.2 G/DL (NOT ESTABLISHED); TRIGLYCERIDE, BODY FLUID 16 MG/DL (NOT ESTABLISHED)
[2019-10-06 15:47] LABS: LDH, BODY FLUID 23180 U/L (NOT ESTABLISHED); SOURCE, BODY FLUID LDH PLEURAL
--- NOTE | 2019-10-06 16:28 | ECGEPIP ---
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
[2019-10-06 19:48] LABS: ABG BASE EXCESS 0.2 (-2.0-2.0); ABG HCO3 24.5 MEQ/L (22.0-26.0); ABG O2 SATURATION 96.4 % (95.0-99.0); ABG PARTIAL PRESSURE CO2 38.5 mmHg (35.0-45.0); ABG STANDARD HCO3 24.6 MEQ/L (22.0-26.0); ABG TOTAL CO2 25.6 MEQ/L (22.0-29.0); ABG pH (ARTERIAL) 7.421 UNITS (7.350-7.450)
[2019-10-06] MEDS: KETOROLAC 30 MG/ML VIAL (J1885) IV SCH (21:20)
[2019-10-07] VITALS (39 sets, daily range): BP systolic 80–105; BP diastolic 48–67
[2019-10-07] MEDS: ACETAMINOPHEN TAB 650MG DOSE (2X325MG) PO PRN (00:12)
[2019-10-07] MEDS: METOPROLOL TART 25 MG TABLET PO SCH ×2 (00:13→06:00)
[2019-10-07] MEDS: KETOROLAC 30 MG/ML VIAL (J1885) IV SCH ×4 (03:55→19:49)
[2019-10-07] MEDS: PIPERACILLIN/TAZOBACTAM SOD 4.5 GM in D5W MINI-BAG PLUS 50 ML IV SCH ×4 (04:09→22:11)
[2019-10-07 05:31] LABS: HEMATOCRIT 32.1 % (42.0-52.0); MEAN CORPUSCULAR HEMOGLOBIN 37.5 pg (27.0-33.0); MEAN CORPUSCULAR HGB CONC 34.3 g/dl (32.0-36.5); MEAN CORPUSCULAR VOLUME 109.6 fl (80.0-96.0); RED BLOOD COUNT 2.93 10^6/uL (4.30-6.10); WHITE BLOOD COUNT 7.7 10^3/uL (4.0-10.0)
[2019-10-07 05:46] LABS: PLATELET COUNT, AUTOMATED 67 10^3/uL (150-450)
[2019-10-07 05:48] LABS: ATYPICAL LYMPH 1 % (0-5); EOSINOPHILS 1 % (0-3); LYMPHOCYTES 11 % (16-44); MONOCYTES 3 % (0-5); NEUTROPHILS 84 % (28-66); PLATELET ESTIMATE DECREASED (NORMAL)
[2019-10-07 05:49] LABS: TOXIC VACUOLATION 1+
[2019-10-07 05:54] LABS: BLOOD UREA NITROGEN 17 MG/DL (7-18); CALCIUM LEVEL 6.9 MG/DL (8.5-10.1); CARBON DIOXIDE LEVEL 29 MEQ/L (21-32); CHLORIDE LEVEL 107 MEQ/L (98-107); CREATININE FOR GFR 0.45 MG/DL (0.70-1.30); GLOMERULAR FILTRATION RATE > 60.0 (>56); GLUCOSE, FASTING 87 MG/DL (70-100); POTASSIUM SERUM 3.4 MEQ/L (3.5-5.1); SODIUM LEVEL 139 MEQ/L (136-145)
[2019-10-07] MEDS ORDERED: KCL 10MEQ/100ML SWI (KRUN) 10 MEQ in IV 1 EA IV SCH (06:00)
[2019-10-07] MEDS ORDERED: POTASSIUM CHLORIDE 10 MEQ SR TABLET PO ONE (06:15)
[2019-10-07] MEDS: KCL 20MEQ IN 100ML SWI (KRUN) 20 MEQ in IV 1 EA IV SCH ×4 (06:37→07:56)
--- NOTE | 2019-10-07 06:37 | RO ---
DATE OF PROCEDURE: 10/06/2019 PREPROCEDURE DIAGNOSIS: Left pleural effusion status post fall. POSTOPERATIVE DIAGNOSIS: Left pleural effusion status post fall with empyema. PROCEDURE: SURGEON: Fer Urbina MD TALENT ACQUISITION PROGRAM MANAGER: ANESTHESIA: FINDINGS: 2000 mL of pure green to yellow pus was eluded from the chest. It was at first very thick and then thinned out as the chest tube drained more. It was sent for all of the requisite studies including bacteriologies, cytologies, chemistries and cell counts. PROCEDURE: Under satisfactory monitored sedation achieved with 1 mg of Versed and eventually 2 mg of Versed, the patient was prepped and draped in the usual sterile fashion. Chest site was chosen at about the seventh intercostal space. Incision was made after infiltrating the skin, subcutaneous tissue and pleura with lidocaine. A tunnel was created in the chest without difficulty and a #24 chest tube was placed without difficulty. The above findings were noted. His chest tube was secured with #2 Tevdek suture and connected to the Pleur-evac after collecting the initial specimens. The patient tolerated the procedure well.
--- NOTE | 2019-10-07 07:06 | CR ---
DATE OF CONSULTATION: 10/06/2019 REASON FOR CONSULTATION: Patient is seen at the request of Dr. Vines for a large pleural effusion, left sided. HISTORY OF PRESENT ILLNESS: The patient is a 59-year-old white male who when loading wood into his wood fire, tripped and lost his balance. He states that he spent a couple of days on the floor trying to get to the phone, but was unable to secondary to weakness. When he finally was able to reach someone his cousin came in on 10/04/2019 and brought him to the emergency room. He states that he remembers the fall and remembers having pain on his right side. He does not remember much more. He states over the last couple of days he has had a cough, but denies fevers, chills or sweats. Again, he is a very poor historian. 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 Since then, he has been unable to eat. He states that he has not lost any weight, but he looks rather cachectic. Notably, he does not complain of pain in his left chest. PAST MEDICAL HISTORY: Chronic atrial fibrillation. 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 PAST SURGICAL HISTORY: Mandibular resection and reconstruction. Left hip fracture. SOCIAL HISTORY: Admits to heavy drinking of approximately 15 beers per day. He smokes about a pack a day. He denies illicit drugs. EXPOSURES: No dogs, birds or cats at home. He did have one dog that a year ago. It was a greyhound mix. TRAVEL HISTORY: None that he recalls to the [facility] or to the [facility]. ALLERGIES: None. OCCUPATIONAL HISTORY: He is a [place]. 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 No exposure to tuberculosis. FAMILY HISTORY: As per the prior history and physical, negative for malignancy or heart disease. REVIEW OF SYSTEMS: CONSTITUTIONAL: Denies fevers, chills or sweats. Also denies weight loss. EYES: Without diplopia. Without prior jaundice, amaurosis fugax. NOSE: Without epistaxis. MOUTH: Is edentulous status post the jaw reconstruction. RESPIRATORY: See history of present illness. CARDIAC: See history of present illness. He has known atrial fibrillation with rapid ventricular response on Xarelto. States that he has peripheral edema which comes and goes. GASTROINTESTINAL (GI): Without nausea, vomiting, diarrhea, constipation. GENITOURINARY (): Without dysuria or prior history of renal stones. ENDOCRINE: With diabetes. Without thyroid disease. PSYCHIATRIC: Without pathological anxieties, depressions or psychoses. MEDICATIONS AT HOME: - aspirin 81 mg daily - digoxin 0.25 mg daily - folic acid 1 mg daily - magnesium oxide 400 mg twice a day - metoprolol tartrate 50 mg twice a day - morphine sulfate ER 30 mg by mouth twice a day - oxycodone 20 mg twice a day - pantoprazole 40 mg daily - thiamine 100 mg daily PHYSICAL EXAMINATION: GENERAL: Cachectic chronically ill white male in mild to moderate respiratory distress. EYES: Pupils equal, round and reactive to light. Extraocular motors intact. Sclera nonicteric. NOSE: Without deformity. MOUTH: Has jaw reconstruction and he is edentulous. I see no thrush. His mucous membranes are pink and moist. NECK: Supple. There is some jugular venous distention (JVD). No subcutaneous emphysema. Trachea is midline. LUNGS: Show decreased breath sounds with E-to-A egophony in the left lower hemithorax. Percussion is dull in the left hemithorax. He also has rales and rhonchi on the right side in the lower hemithorax through both inspiration and expiration. I hear over the precordium what I think is a pleural friction rub. CARDIAC EXAM: Without murmurs, clicks or gallops. I cannot feel his point of maximal impulse (PMI). Again, I note a low frequency rub over the precordium with each breath. ABDOMEN: Soft, nontender. Bowel sounds are positive. There is no hepatomegaly. No costovertebral angle (CVA) tenderness. EXTREMITIES: Show no pretibial edema. No calf tenderness. There is a heeling ulcer on the right dorsum of his foot. SKIN: Warm, dry and perfused without cyanosis or mottling. NEURO: Shows gross motor and gross sensation intact along with II through XII intact. PSYCHIATRIC: Shows him to be awake, but rather slow and somnolent. INVESTIGATIONS: White count is now 7.2. His admission white count was 11.6. Today's hemoglobin and hematocrit are 11.2 and 32.6, respectively, with a platelet count of 104. Differential on 10/04/2019 showed 95% neutrophils, 30% lymphocytes, 2% monocytes. There are no immature forms. No toxic granulations. His blood gases on 10/04/2019 showed a pH of 7.38, pCO2 of 32, and pO2 of 80 with a base excess of -5.1. PT/INR on 10/04/2019 was 17.3 and 1.44 respectively with a PTT of 38.2 seconds. His chemistries today show a potassium of 3.2 with a BUN and creatinine of 19 and 0.49, a glucose of 132 and a calcium of 7.1. His troponins on 10/05/2019 and 10/04/2019 were 0.04. Lactic acid on 10/04/2019 was 2.8. AST and ALT were 69 and 28, respectively. TSH was 5.3. Albumin is 2.0. His chest x-ray done on 10/04/2019 portably showed a dense opacity in the left lower hemithorax, most likely consistent with fluid. CT angio of his chest that day confirmed a large amount of fluid, which was pushing the diaphragm on the left side inferiorly. He had compression of the left lower lobe. It also showed an infiltrative process in the posterior segment of the upper lobe on the right side and the lower lobe also on the right side. I do not appreciate a pericardial effusion on the chest CT. Adrenals had normal configurations. I do not appreciate any liver lesions. His liver does have a knobbly appearance consistent with cirrhosis, however. I do not see appreciable mediastinal lymphadenopathy, although he does have some para-aortic AP window nodes, which measure about a centimeter. IMPRESSION: 1. Pleural effusion left side, probably traumatic. 2. Dehydration. 3. Hypotension. 4. Hypoxia. 5. Hypothyroidism, untreated. 6. Prior lactic acidosis. 7. Atrial fibrillation with rapid ventricular response, now controlled. 8. Protein calorie malnutrition. 9. Alcohol abuse. PLAN AND DISCUSSION: I will place a chest tube. Will send it off for all of the requisite studies including cytologies, hematologies, bacteriologies and chemistries. I will place it low in the approximate seventh intercostal space. I would recommend that we treat his hypothyroidism as his TSH is elevated. It should be noted that his CVP after the procedure was 6 and I have started fluids on him of a liter at 100 mL an hour. He was also noted to become bradycardic shortly after the procedure, which however responded to stimulation and Romazicon. He was never hypoxic. EKG after the procedure did not show any acute changes. His chest x-ray after the procedure showed the lung expanded to the chest wall, but still possibly entrapped in the lower hemithorax. The fluid has been completely evacuated.
[2019-10-07] MEDS: IPRATROPIUM 0.5MG/ALBUTEROL 2.5MG INH SOL UD 3ML (DUONEB)(J7620) NEB PRN ×2 (08:28→19:42)
--- NOTE | 2019-10-07 08:32 | REP ---
AP PORTABLE CHEST: 10/06/2019 at 07:26 PM. Comparison: 01:22 PM today, 10/05/2019, 10/04/2019. Clinical history: Worsening dyspnea. Findings: Left base chest tube noted earlier today is again seen. There is a subpulmonic pneumothorax on that left side of the chest tube position unchanged. Opacity of the lower most segment of that aerated lung is now more complete compared to the earlier study. There are extensive diffuse infiltrates in the right mid and lower lung zone and showing further increase in the left lung representing alveolar infiltrates and/or edema or both. There are no other interval changes. Impression: 1. Worsening diffuse infiltrates and/or edema and increasing airspace opacity in the aerated lung at the left base after left chest tube insertion earlier today. Pneumothorax is unchanged in size. No other significant finding or interval change. Electronically Signed by Renato He MD 10/07/2019 09:51 A
[2019-10-07] MEDS ORDERED: MULTIVITAMINS/MINERALS THERAP 1 TAB PO SCH (09:00)
[2019-10-07] MEDS ORDERED: FOLIC ACID 1 MG TAB PO SCH (09:00)
[2019-10-07] MEDS: MORPHINE 2 MG/ML 1ML VIAL (J2270) IV PRN ×2 (09:32→18:04)
[2019-10-07] MEDS: NS 1,000 ML IV SCH ×2 (11:49→22:12)
[2019-10-07] MEDS: PANTOPRAZOLE 40MG INJ (PROTONIX) (C9113) IV SCH (11:50)
[2019-10-07] MEDS: DIGOXIN INJ 0.5 MG/2 ML AMP (J1160) IV SCH (11:50)
[2019-10-07] MEDS: LEVOTHYROXINE 100 MCG (0.1MG) VIAL IV SCH (11:50)
--- NOTE | 2019-10-07 11:53 | IPNPDOC ---
Text Note Date of Service The patient was seen on 10/07/19. NOTE S: Examined at bedside. He had no acute complaints. Patient continues to want full code status. Despite poor prognosis O: GENERAL: cachectic, disheveled, appears older than stated age, chronically ill appearing HEENT: nasal cannula in place, NC Chest: diminished breath sounds throughout, left subclave CVC in place Heart: +S1S2, irregularly irregulary, tachycardic Abd: soft, NT, +BS Ext: no edema, 2x2cm chronic wound on dorsal aspect of right foot A/P: 58-year-old white male with a history of a-fib, jaw cancer s/p jaw reconstruction, noncompliance with medical care, and hip fracture to the left hip, presents to the ED via ambulance, with a report that he fell a few days ago after losing his balance and has been on the floor since then without food, water, and medication. He was found to be severely dehydrated and in A. fib with RVR #afib/RVR - follow as per cardiology - assistance appreciated -Continue IV dig -Hold amiodaron and lopressor for aspiration - Continue to monitor #acute hypoxic respiratory failure 2// multi-factorial - decreased respiratory effort, possible obstructive lung disease, large left hydropneumothorax with complete compression atelectasis of LLL -Status post chest tube placement - continue wean O2 as tolerated Empyema - Plueral effusion was very purulent, it showed multiple white blood cells, with many gram-positive cocci in pairs, many gram-negative rods, and mainly gram- positive rods. - Zosyn - Fluids # Aspiration -Failed speech evaluation therapy, -ordered cookie swallow, we'll switch his to IV Hypothyroid -Start IV levothyroxine #hypotension - trial of midodrine started overnight, - D/C midodrine this morning - IV fluids #fall - PT/OT #medical non-compliance - complicates care #right foot wound - Optifoam daily dressing #alcohol abuse -CIWA protocol #Lactic acidosis - resolved #Protein calorie malnutrition/FTT -BMI 13.6 kg/m2 -Ensure protein shake as nutritional supplements -PFS consult for placement - nutrition evaluation #Jaw cancer -Status post reconstruction #DVT prophylaxis - mechanical Attending: I have independently seen and examined the patient and agree with the resident's note. VS,Rodrigo, I+O VS, Fishbone, I+O Laboratory Tests 10/07/19 05:18 Vital Signs Date Time Temp Pulse Resp B/P (MAP) Pulse Ox O2 Delivery O2 Flow Rate FiO2 10/07/19 06:00 81 84/57 10/07/19 06:00 91 Nasal Cannula 3.0 10/07/19 04:00 97.0 35 I&O- Last 24 Hours up to 6 AM 10/07/19 06:00 Intake Total 810 ml Output Total 2245 ml Balance -1435 ml SHADYLEON Oct 07, 2019 07:12 CARYL MOSER MD Oct 28, 2019 18:37
[2019-10-07] MEDS ORDERED: LORazepam 2 MG TAB PO PRN (14:30)
--- NOTE | 2019-10-07 15:06 | REP ---
Portable chest, 02:15 p.m., single AP view with the the patient sitting: Comparison is 10/06/2019. There is a left thoracotomy tube. There is opacification of the left lung, likely a large left pleural collection is seen on the comparison CT of 10/04/2019. There is a pneumothorax in the left costophrenic angle, unchanged from the comparison portable chest of 10/06/2019. There is an infiltrate inferiorly in the right lung and small right pleural effusion, also unchanged. There is a left subclavian central venous catheter with the tip in the superior vena cava, unchanged. Impression: No significant change from 10/06/2019. Electronically Signed by Papo Howard MD 10/07/2019 02:58 P
[2019-10-07] MEDS ORDERED: NS 500 ML IV ONE (15:15)
[2019-10-07] MEDS ORDERED: NS 1,000 ML IV ONE (17:00)
[2019-10-07] MEDS: SODIUM CHLORIDE HYPERTONIC 3% 15ML NEB SOL INH SCH ×2 (18:12→19:42)
--- NOTE | 2019-10-07 18:35 | IPN ---
DATE: 10/07/2019 Mr. Weir has clinically done fairly well overnight. He did not go into postexpansion pulmonary edema. While he complains of pain at the chest tube insertion site, he is no longer using the muscles of accessory respiration. He is fairly comfortable breathing. His vital signs show a maximum temperature (T max) of 99.1 with a heart rate that ranges between 98 and 89 and is sinus rhythm, respiratory rate of 32 to 34 without the use of accessory muscles, however. He is 98% saturated on high flow cannula of 10 liters, and his blood pressure is ranging between 88/48 to 91/58. His intake and output over the past 24 hours has been recorded as 640 in and 2200 out. He put out 1900 mL from the chest tube when it was placed. He has only put out 250 mL of urine. His weight is pending today. On physical examination, he has rales and rhonchi on the right side in both phases of the respiratory cycle. He has definitive rales in the right lower lobe. On the left side, he has a dull percussion note in the left lower hemithorax. He also has e to a egophony. I hear some breath sounds with some rales in the left upper lobe. Percussion note is full to the diaphragm on the right side. Cardiac exam is without murmurs, clicks, gallops or rubs. I cannot feel his point of maximum impulse (PMI). S1, S2 are normal. He has a regular rate and rhythm. Abdomen is soft and nontender. Bowel sounds are positive except in the left upper quadrant in the dermatomal distribution of the chest tube. There is no hepatomegaly. No costovertebral angle tenderness. Extremities show no pretibial edema. No calf tenderness. No differential swelling of the upper extremities. His skin is warm, dry and perfused without cyanosis or mottling, including that of the nail beds and the knees. Neck is supple. There is no jugular venous distention, no subcutaneous emphysema. Trachea is midline. Mouth shows his mucous membranes to be pink and moist. Lips and commissures without lesions. There is no thrush. Eyes show his pupils to be equal and reactive. Extraocular motions intact. Sclerae anicteric. Neurologic shows II-XII intact along with gross motor and gross sensation intact. Gait is not tested. Psychiatric shows him to be awake and alert, oriented times three with appropriate mood and affect and conversational. His white count today is 7.7 with a hemoglobin and hematocrit of 11.0 and 32.1, unchanged from yesterday, with a platelet count of 67. Differential shows 84% neutrophils, 11% lymphocytes, 3% monocytes. There are no immature forms, but he has 1+ toxic granulations. Chemistries show a sodium of 139 with a potassium of 3.4. BUN and creatinine are 17 and 0.45, glucose of 87, and a calcium of 6.9 with a magnesium of 2.0. On admission, his albumin was 2.0. His pleural fluid has come back with a pH of less than 6.5 with a glucose of 5 and an LDH of 23,000. There is no cell count, but as it was pure pus, I suspect it is all neutrophils. This looks to be a classic empyema. His chest x-ray today shows volume loss in the left side with diffuse atelectasis or consolidation. This is markedly changed from his postprocedure chest tube. He has a shift to the mediastinum to the left, and the lung still is not expanded to the chest wall inferiorly. Chest tube is in good place. IMPRESSION: 1. Underlying sepsis. 2. Underlying pneumonia, both right and left sides. 3. Complete consolidation of at least the left lower lobe if not part and parcel of the upper segments of the left upper lobe. 4. Thrombocytopenia. 5. Hypotension. 6. Volume depletion. 7. Prior alcohol abuse. 8. Protein-calorie malnutrition. 9. Atrial fibrillation with rapid ventricular response, now controlled. PLAN AND DISCUSSION: I am convinced that Mr. Weir is septic. He now has further collapse of his left lung. He may need a bronchoscopy in the near future, but we will start off with lung expansion therapy, including hypotonic saline, nebulizers and chest percussion. He is on Zosyn at this point in time. I think that his sepsis is manifested by his hypotension along with vascular depletion with a CVP of only 1 and thrombocytopenia. I think that aspiration probably occurred during his two days on the floor in his house before he was discovered. I will continue his chest tube to suction.
[2019-10-07] MEDS ORDERED: HEPARIN SOD (PORCINE) 5000 UNITS/ML VIAL (J1644 PER 1000UNITS) SQ SCH (21:00)
[2019-10-07] MEDS ORDERED: THIAMINE 100 MG TAB PO SCH (21:00)
[2019-10-07] MEDS ORDERED: LORazepam 2 MG/ML VIAL (J2060) IV PRN (22:15)
[2019-10-08] VITALS (26 sets, daily range): BP systolic 85–105; BP diastolic 50–74; O2SAT 97
[2019-10-08] MEDS: IPRATROPIUM 0.5MG/ALBUTEROL 2.5MG INH SOL UD 3ML (DUONEB)(J7620) NEB PRN ×3 (00:04→08:48)
[2019-10-08] MEDS: SODIUM CHLORIDE HYPERTONIC 3% 15ML NEB SOL INH SCH ×3 (00:04→08:48)
[2019-10-08] MEDS: MORPHINE 2 MG/ML 1ML VIAL (J2270) IV PRN ×2 (00:10→06:25)
[2019-10-08] MEDS: PIPERACILLIN/TAZOBACTAM SOD 4.5 GM in D5W MINI-BAG PLUS 50 ML IV SCH ×4 (02:47→22:53)
[2019-10-08] MEDS: KETOROLAC 30 MG/ML VIAL (J1885) IV SCH ×4 (02:48→20:25)
[2019-10-08] MEDS ORDERED: LEVOTHYROXINE 75MCG TABLET (0.075MG) PO SCH (06:00)
[2019-10-08 06:05] LABS: BASO % 0.1 % (0.0-1.0); EOS # 0.2 10^3/uL (0.0-0.5); EOS % 2.9 % (0.0-3.0); HEMATOCRIT 31.3 % (42.0-52.0); HEMOGLOBIN 10.7 g/dl (13.5-17.5); LYMPH # 0.7 10^3/uL (1.5-5.0); LYMPH % 10.1 % (24.0-44.0); MEAN CORPUSCULAR HEMOGLOBIN 37.9 pg (27.0-33.0); MEAN CORPUSCULAR HGB CONC 34.2 g/dl (32.0-36.5); MONO # 0.3 10^3/uL (0.0-0.8); MONO % 4.3 % (0.0-5.0); NEUTROPHILS # 5.6 10^3/uL (1.5-8.5); NEUTROPHILS % 80.7 % (36.0-66.0); RED BLOOD COUNT 2.82 10^6/uL (4.30-6.10); WHITE BLOOD COUNT 6.9 10^3/uL (4.0-10.0)
[2019-10-08 06:06] LABS: PLATELET COUNT, AUTOMATED 66 10^3/uL (150-450)
[2019-10-08 06:25] LABS: BLOOD UREA NITROGEN 17 MG/DL (7-18); CARBON DIOXIDE LEVEL 26 MEQ/L (21-32); CHLORIDE LEVEL 113 MEQ/L (98-107); CREATININE FOR GFR 0.43 MG/DL (0.70-1.30); GLOMERULAR FILTRATION RATE > 60.0 (>56); GLUCOSE, FASTING 56 MG/DL (70-100); SODIUM LEVEL 143 MEQ/L (136-145)
[2019-10-08] MEDS ORDERED: DEXTROSE 50% 50 ML SYRINGE IV STA ×2 (07:20→13:27)
[2019-10-08] MEDS: PANTOPRAZOLE 40MG INJ (PROTONIX) (C9113) IV SCH (08:38)
[2019-10-08] MEDS: D5W/0.9% SODIUM CHLORIDE 1,000 ML IV SCH ×3 (08:38→22:53)
[2019-10-08] MEDS: LEVOTHYROXINE 100 MCG (0.1MG) VIAL IV SCH (08:39)
[2019-10-08] MEDS: DIGOXIN INJ 0.5 MG/2 ML AMP (J1160) IV SCH (08:40)
--- NOTE | 2019-10-08 08:46 | REP ---
PA and lateral chest three views including a single PA and two lateral views: Comparison is 10/07/2019. The left thoracotomy tube is unchanged. The small left pneumothorax in the left costophrenic angle is unchanged. There is complete opacification of the entire left hemithorax. The small area of aerated lung identified on the comparison study is no longer present. There are a few air bronchograms in the left hilus. The infiltrate inferiorly in the right lung is unchanged. The small right pleural effusion identified previously is no longer present. The left subclavian central venous catheter is unchanged. Impression: Probable worsening of the left pleural effusion. Electronically Signed by Papo Howard MD 10/08/2019 08:37 A
[2019-10-08] MEDS ORDERED: LEVOTHYROXINE 100 MCG (0.1MG) VIAL IV SCH (09:00)
--- NOTE | 2019-10-08 09:33 | IPN ---
CARDIOLOGY PROGRESS NOTE DATE OF SERVICE: 10/07/2019 SUBJECTIVE: The patient is a 59-year-old male who presented to the hospital after a fall on 10/02/2019, and he was found down on the floor for about 2 days. The patient was found to be in atrial fibrillation with a rapid ventricular rate. The primary team was having difficulty controlling the heart rate, so cardiology was consulted. Overnight, the patient's heart rate has been much better controlled and has been in the 80s-90s. The patient has had atrial fibrillation dating back to May of 2002. The patient also had a chest tube placed, which drained purulent material by Dr. Urbina of thoracic surgery. The patient was only answering questions with yes-or-no answers but denied any pain or discomfort anywhere. OBJECTIVE: PHYSICAL EXAMINATION: VITAL SIGNS: Temperature 97.0, pulse 81, blood pressure 84/57 with a mean arterial pressure (MAP) of 66, pulse oximetry 91% on 3 liters of oxygen via nasal cannula. GENERAL: Alert and oriented male patient who was answering questions in one- word sentences. However, the patient was seen very lethargic today. He would open his eyes and answer questions appropriately when asked but would fall asleep very quickly thereafterwards. The patient was cachectic-appearing and was not moving around in the bed that much. HEENT: Was normocephalic, atraumatic. Anicteric sclerae. NECK: No evidence of jugular venous distention. CARDIOVASCULAR: Irregularly irregular rhythm with a nontachycardic rate. No audible murmurs heard. RESPIRATORY: Clear to auscultation on the right side. There were diminished breath sounds heard over the left lower lung horner. Clear in the left upper lung horner. ABDOMEN: Was soft with mild abdominal tenderness, especially over the right upper quadrant. EXTREMITIES: There was 2+ pitting edema around the ankles bilaterally. There was 1+ pitting edema up through the level of the thighs bilaterally. SKIN: There were multiple areas of bruising. There was a wound on the dorsal aspect of the right foot that was scabbed over. LABORATORY STUDIES: White blood cell 7.7, hemoglobin 11.0, hematocrit 32.1, platelet count 67. Sodium 139, potassium 3.4, chloride 107, carbon dioxide 29, BUN 17, creatinine 0.45, fasting glucose 87, calcium 6.9. The patient's intake and output, the patient has an intake of 270 and an output of 120 since midnight last night. The patient's cumulative balance is positive 2685 mL. ASSESSMENT AND PLAN: The patient is a 59-year-old male who presented to the hospital after being found down for greater than 48 hours with atrial fibrillation with rapid ventricular response. 1. Atrial fibrillation (permanent). The patient still remains in atrial fibrillation. However, his ventricular rate is controlled at this time. The patient's rate has been in the 70s-80s overnight. The patient has low-dose amiodarone and remains on this 200 mg four times a day in addition to digoxin. The patient also has low-dose metoprolol but a hold parameter for less than 90. The patient did receive this at midnight but did not receive this this morning. The patient is on low-dose aspirin and [id number] heparin but not on an oral anticoagulant because of prior history of gastrointestinal (GI) bleeding. 2. Abnormal electrocardiogram (EKG)/right bundle branch block. Conduction abnormality and axis believed to be related to his cor. pulmonale. No evidence of bradyarrhythmia or high-grade AV block, despite combination negative chronotropic therapy. The patient remains on monitor and does not report any chest pain. 3. Cor. pulmonale. Well documented, at least moderately severe pulmonary hypertension and right heart enlargement, with prior right heart failure dating back to 2001. Still has an elevated pulmonary arterial pressure, but his estimated central venous pressure at this time is low related to his anorexia and recent diarrhea. The patient has been given ample intravenous (IV) fluid replacement. However, he does have persistent relative hypotension with mild prerenal azotemia at this time. The patient's albumin is also quite low, which could be exacerbating his edema. 4. History of dilated cardiomyopathy. Believed to be alcohol mediated, with at least mildly dilated left ventricle with marked impairment of global left ventricular systolic function. Despite his ongoing smoking and alcohol intake, his current estimated left ventricular ejection fraction was within normal limits, even with septal wall motion abnormality due to right ventricular pressure overload. Previously documented mildly dilated left atrium has also normalized, with mean left atrial pressure within normal limits. At this time, the patient's heart rate is adequately controlled, and we will continue with the current medications. We will continue to follow along with the patient. AYDIN
[2019-10-08] MEDS ORDERED: LIDOCAINE 2% INJ 100 MG/5 ML SDV (FOR ANES.) As Ordered ONE (10:37)
[2019-10-08] MEDS ORDERED: ROCURONIUM BROMIDE 50 MG/5 ML VIAL As Ordered ONE (10:37)
[2019-10-08] MEDS ORDERED: propofoL 200 MG/20 ML VIAL As Ordered ONE (10:37)
[2019-10-08] MEDS ORDERED: fentaNYL 100 MCG/2 ML INJECTION (J3010) As Ordered ONE (10:49)
[2019-10-08] MEDS ORDERED: MIDAZOLAM INJ 2 MG/2 ML VIAL (J2250) As Ordered ONE (10:49)
[2019-10-08] MEDS ORDERED: CETACAINE SPRAY 5GM As Ordered ONE ×2 (10:52→11:46)
--- NOTE | 2019-10-08 11:00 | IPNPDOC ---
Text Note Date of Service The patient was seen on 10/08/19. NOTE S: Patient was examined at bedside. He was pleasant this morning. He was able to answer questions appropriately. Overnight his heart rate was well controlled between 80s and 90s. He remained afebrile. He admitted to mild tenderness at this insertion site of his chest tube. Discussed treatment goals. The patient stated that he will like to be made DNI, DNR. However, he is not ready to be made comfort care. O: GENERAL: cachectic, chronically ill-appearing gentleman, he was accompanied by his friend. This a.m. He was able to answer questions appropriately. He was alert, HEENT: nasal cannula in place, NC Chest: diminished breath sounds throughout, left subclave CVC in place Heart: Irregularly irregular, not cardiac S1, S2 present, no murmurs, no rubs, no gallops Abd: soft, NT, +BS, nondistended, nonobese Ext: No edema, no cyanosis, wound located on patient's right leg on dorsal surface, covered with optifoam A/P: 58-year-old white male with a history of a-fib, jaw cancer s/p jaw reconstruction, noncompliance with medical care, and hip fracture to the left hip, presents to the ED via ambulance, with a report that he fell a few days ago after losing his balance and has been on the floor since then without food, water, and medication. He was found to be severely dehydrated and in A. fib with RVR #Septic secondary to empyema - Plueral effusion was very purulent, it showed multiple white blood cells, with many gram-positive cocci in pairs, many gram-negative rods, and mainly gram- positive rods. - Scheduled for bronchoscopy today. Patient will likely be intubated prior to procedure and will continue to be intubated for a few days following procedure. ---Thoracic surgery and critical team on board -Continue with Jeannine at this point in time. -Continue chest tube for suction -Critical care pulmonary team has also been consulted for this #afib/RVR - follow as per cardiology - assistance appreciated -Continue IV dig -Hold amiodaron and lopressor for aspiration - Continue to monitor #acute hypoxic respiratory failure 2/2/ multi-factorial - decreased respiratory effort, possible obstructive lung disease, large left hydropneumothorax with complete compression atelectasis of LLL -Status post chest tube placement -Patient's overall oxygen requirement decreased. We'll continue to wean patient off oxygen if necessary # Aspiration -Failed speech evaluation therapy, - set up for cookie swallow this afternoon. Currently only receiving IV medications. -Patient will like to receive parenteral nutrition through his central line in the event that he fails cookie swallow. He does not want a PEG tube placed at the moment. He has had one in the past and did not enjoy. Continues to state that he wants to eat food #Patient was hypoglycemic this morning. An amp of D5 was administered patient. He is currently receiving IV dextrose fluid at the rate of 100 mL #Hypothyroid -Start IV levothyroxine #hypotension - Stable. -Currently receiving IV dextrose fluid #fall - PT/OT #medical non-compliance - complicates care #right foot wound - optifoam daily dressing #alcohol abuse -[facility] protocol #Lactic acidosis - resolved #Protein calorie malnutrition/FTT -BMI 13.6 kg/m2 -Ensure protein shake as nutritional supplements -PFS consult for placement - nutrition evaluation #Jaw cancer -Status post reconstruction #DVT prophylaxis - mechanical Attending attestation: I have independently seen and examined the patient. VS,Fishbone, I+O VS, Fishbone, I+O Laboratory Tests 10/08/19 05:45 Vital Signs Date Time Temp Pulse Resp B/P (MAP) Pulse Ox O2 Delivery O2 Flow Rate FiO2 10/08/19 06:25 18 10/08/19 05:30 98.2 119 105/63 (77) 93 High Flow Cannula 6.0 I&O- Last 24 Hours up to 6 AM 10/08/19 06:00 Intake Total 2360 ml Output Total 915 ml Balance 1445 ml LEON CARUSO DO Oct 08, 2019 07:29 CARYL MOSER MD Oct 28, 2019 18:43
--- NOTE | 2019-10-08 11:57 | REP ---
CT of the chest without IV contrast: Comparisons are the chest CT dated 10/04/2009 and PA and lateral views of the chest earlier today. The left thoracotomy tube is unchanged. The focal pneumothorax in the left costophrenic angle is unchanged. However, the volume of pleural fluid in the left hemithorax appears decreased from the prior CT, however, there is progressive increasing collapse of the entire left lung, now including the left upper lobe, possibly from central bronchus obstruction. Additionally, there is now a large right pleural effusion as an interval change. There are infiltrates in the right upper lobe and superior segment of the right lower lobe as previously. Cardiac size is enlarged, unchanged. There is no pericardial effusion. The unenhanced thoracic aorta is unremarkable. The visualized upper abdomen is unremarkable. Impression: The left chest tube and left pneumothorax in the costophrenic angle are unchanged. The volume of left pleural fluid has decreased. However, there is increasing collapse of the entire left lung now also involving the left upper lobe, possibly from central bronchial obstruction. There is a new large right pleural effusion. The right upper lobe and right lower lobe infiltrates are unchanged. Electronically Signed by Papo Howard MD 10/08/2019 11:48 A
[2019-10-08] MEDS ORDERED: propofoL 1,000 MG in IV 1 EA IV SCH (12:09)
[2019-10-08] MEDS ORDERED: ALBUTEROL SULFATE 2.5 MG/0.5 ML INH NEB SOLN NEB PRN (12:15)
[2019-10-08] MEDS ORDERED: IPRATROPIUM 0.5MG/ALBUTEROL 2.5MG INH SOL UD 3ML (DUONEB)(J7620) NEB PRN (12:15)
[2019-10-08] MEDS: MIDAZOLAM INJ 2 MG/2 ML VIAL (J2250) IV PRN ×2 (12:24→20:34)
--- NOTE | 2019-10-08 12:39 | IPN ---
DATE: 10/08/2019 NOTE: Mr. Weir's chest CT scan confirmed near complete collapse of the left upper lobe with what appeared to be mucus in the left mainstem. Given that this is a reversible cause, both myself and Dr. Urbina spoke with Mr. Weir. He had decided earlier today that he wanted to be DO NOT RESUSCITATE, DO NOT INTUBATE, which, given his overall medical situation, was appropriate. However, as this is a reversible process, we spoke to him regarding possible intubation for bronchoscopy. In addition, as often total atelectasis of the lung requires a repeat bronchoscopy, we discussed planning on keeping him on the ventilator for 2 to 3 days. He is agreeable to that recommendation. He also informed us that if at that point in time there was no progress or he appeared to be optimized in terms of keeping that lung open, he wanted to be extubated and his DO NOT RESUSCITATE and DO NOT INTUBATE status resumed. His DNR and DNI status was therefore reversed for intubation bronchoscopy with plan to keep him intubated 2 to 3 days and then more than likely extubate and revert to previous status.
--- NOTE | 2019-10-08 12:48 | RO ---
DATE OF PROCEDURE: 10/08/2019 PREOPERATIVE DIAGNOSIS: Near complete collapse of the left lung. POSTOPERATIVE DIAGNOSIS: Near complete collapse of the left lung. PROCEDURE: Bronchoscopy with evacuation of secretions and left upper lobe bronchoalveolar lavage (BAL). SURGEON: Dr. Estiven Appiah ROLL TESTER: ANESTHESIA: General. PROCEDURE NOTE: Procedure explained and consent obtained. The plan was to intubate Mr. Weir for several days to help was sputum clearance (see previously dictated note). The plan was also to place a nasogastric (NG) tube given his malnutrition and difficulty with aspiration. Mr. Weir was carefully intubated by anesthesia and that service managed pain and sedation. Windber procedure was followed. Following this, the bronchoscope was introduced into the trachea. The right lung was examined and showed normal anatomy and minimal secretions. The left lung showed welling of secretions to the level of the isaac which were surprisingly thin. These were easily evacuated. In the deeper segments, there were a few mucus plugs removed, but overall no significant plugging. The airway mucosa was edematous and friable. The bronchoscope was then positioned in the left upper lobe and a BAL was done. At this point, the bronchoscope was removed. Tolerated well. FINDINGS: 1. Mildly edematous, but very friable airways bilaterally. 2. Relatively thin secretions at the level of the isaac on the left. 3. A few mucus plugs of the deeper segments. SPECIMENS: Left upper lobe BAL sent for Gram stain, culture and cytology. [facility]
[2019-10-08 13:15] LABS: ABG BASE EXCESS -2.4 (-2.0-2.0); ABG HCO3 21.6 MEQ/L (22.0-26.0); ABG O2 SATURATION 93.2 % (95.0-99.0); ABG PARTIAL PRESSURE CO2 34.6 mmHg (35.0-45.0); ABG PARTIAL PRESSURE O2 66.3 mmHg (75.0-100.0); ABG STANDARD HCO3 22.4 MEQ/L (22.0-26.0); ABG TOTAL CO2 22.7 MEQ/L (22.0-29.0); ABG pH (ARTERIAL) 7.413 UNITS (7.350-7.450)
--- NOTE | 2019-10-08 14:10 | CR ---
DATE OF CONSULTATION: 10/07/2019 HISTORY OF PRESENT ILLNESS: The manager security and safety service was asked this afternoon to see the patient, Mr. Agnieszka Weir who is currently being followed by The hospitalist service, cardiology (Dr. Yousif) and by Dr. Urbina. Per the patient and medical records, the patient was admitted on 10/04/2019 after he was found down at home. Per the patient, he reports that he was laying on the floor of his house for 2-3 days, unable to get to a phone to have assistance. He does not remember any of the events surrounding him falling and laying on the floor in his house. He remembers coming to the emergency room but he does not remember the ambulance being called and coming to his house. He denies any recent confusion, nausea, vomiting, diarrhea, lightheadedness or dizziness. He reports he has been taking all of his medications as prescribed. He reportedly sees a physician in the community, Dr. Layton Olguin and he reports that recently he has been having some decreased strength but he denies any seizure-like activity, loss of consciousness, no loss of bowel or bladder function and no headaches. In the emergency room, he underwent CT angiogram where he was found to have a very large left-sided pleural effusion which Dr. Urbina had drained. At this point, the patient had a chest tube in place and also his hospitalization has been complicated by atrial fibrillation with rapid ventricular response for which he was seen by cardiology and has been treated with rate controlled digoxin and metoprolol. In addition, the patient on admission was requiring 4 liters of oxygen supplementation and he was started on a pureed diet, which is presumably what he uses at home. But there was question for aspiration as the patient, when he was eating, starting choking and now modified cookie swallow has been ordered and will be done tomorrow and he is now on 10 liters of oxygen as well as nothing by mouth diet. PAST MEDICAL HISTORY: Significant only for atrial fibrillation and head and neck cancer. PAST SURGICAL HISTORY: A mandibular resection and reconstruction and a left hip surgery. SOCIAL HISTORY: The patient admits to heavy drinking of approximately 15 beers a day. He smokes about a pack a day and he denies any illicit drugs including marijuana or other illegal substances. ALLERGIES: The patient has none. 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 FAMILY HISTORY: Negative for malignancies or any pertinent diseases. REVIEW OF SYSTEMS: Constitutionally, the patient denies fevers, chills, night sweats, recent weight loss. Eyes: He reports normal vision. He denies any pain with eye movement or double vision. Nose: He has no recent nose bleeds. Mouth: He does report some pain resulting from his previous jaw reconstruction. Respiratory: He is endorsing shortness of breath, dyspnea on exertion and wheezing. Cardiac: He does report palpitations but he denies lightheadedness or dizziness. He denies also peripheral edema. GI: He does report some lower abdominal pain in the right lower quadrant. Otherwise, he has no nausea, vomiting, diarrhea or constipation. He does report that he has some difficulty swallowing which is a common issue for him. : He denies dysuria. Endocrine: He denies any hot or cold intolerance. Psychiatric: He has a normal mood and normal affect. MEDICATIONS AT HOME: Include - aspirin 81 mg daily - digoxin 0.25 mg daily - folic acid 1 mg daily - magnesium oxide 400 mg twice daily - metoprolol tartrate 50 mg twice daily - metformin ER 30 mg by mouth twice daily - oxycodone 20 mg twice daily - pantoprazole 40 mg daily - thiamine 100 mg daily PHYSICAL EXAMINATION: Vitals at this time are temperature of 98.3, pulse 99, respiratory rate 34, blood pressure 91/58 with a MAP of 59, pulse oximetry 97% on 10 liters high flow cannula. Generally, the patient is laying in bed. He is in no acute distress. He is calm, cooperative, and pleasant. HEENT: His pupils are equally round and reactive to light. His extraocular movements are intact. His mucous membranes are moist. Mouth: He has no teeth. His Mallampati score is 3-4. Neck is supple with no thyromegaly or lymphadenopathy. Respiratory exam: He has decreased breath sounds in the right lower and middle lobes. He also has increased E/A egophony in the left lower and the right lower lobes with some scattered crackles. There is a chest tube present on the left lateral chest wall that is producing some chest tube squeaks. Otherwise, he is not using any accessory muscles with respiration and he is speaking in full sentences. Cardiovascular: He is irregularly irregular. No discernible murmurs, rubs or gallops. He does not have elevated jugular venous distention (JVD). GI exam: He is exquisitely tender in the left upper quadrant at the site of the chest tube placement. Tender to deep palpation in the right lower and left lower quadrant. He has positive bowel sounds. He has no masses or organomegaly. Extremities: He has no swelling. No clubbing, cyanosis or edema in the lower extremities bilaterally. He has poor maintenance of his toenails bilaterally. Lymphatics: He has no enlarged lymph nodes in the cervical, posterior auricular or femoral regions. Skin: He has some bruising on his arms and bandages on both of his elbows but no new rashes, lumps or bumps. Psychiatric: He is awake, alert, and oriented times three with a normal mood and a normal affect. LABS: His CBC today shows a white blood cell count of 7.7, hemoglobin of 11.0, hematocrit of 32.1 and platelet count of 67 down from 104 yesterday. His chemistries show a sodium 139, potassium of 3.4, chloride 107, carbon dioxide of 29. He has a BUN of 17 and a creatinine of 0.45 and a GFR estimated as greater than 60%. His calcium was found to be 6.9 and his magnesium 2.0. His most recent blood gas that was performed 10/06/2019 at 7:39 p.m. was 7.42, 38.5, 87 with base access of 0.2. Pleural fluid studies are still pending. However, the actual pleural fluid demonstrated LDH of 23,180, albumin 0.6, total protein 2.2, glucose 5. All pleural fluid cultures are pending as well as Gram stains. Respiratory viral panel was found to be negative. His blood cultures have been negative as well. Most recent imaging: A chest x-ray that was done today 10/07/2019 at 2:38 p.m. that is reviewed by us and demonstrates some opacification in the left lung likely secondary to a large left pleural collection compared to the original CT that he had on 10/04/2019. There is still a pneumothorax on the left costophrenic angle that is unchanged from yesterday and there is an infiltrate inferiorly in the right lung and small right pleural effusion that is also unchanged. ASSESSMENT: This is a 59-year-old man with a history of atrial fibrillation who presented after being found down at home for several days was found to have very large fluid collection in his left lung as well as possible bilateral aspiration pneumonia. He is currently in the intensive care unit (ICU) being treated for aspiration pneumonia and a complicated pleural effusion / empyema. We gave been asked to see him because of hypotension and worsened hypoxemia. PLAN: Cardiovascular: The patient is currently being seen by cardiology for his atrial fibrillation with rapid ventricular rate (RVR). He does have a central line in for central venous pressure (CVP) measurement. As the patient does not have elevated jugular venous distention (JVD), his CVP was measured to be 1 today. We did a fluid challenge and gave him 500 mL bolus of normal saline during which his blood pressure did not change significantly and his CVP went from 1 to 5. It is presumed that this patient is very fluid down and will need to be resuscitated accordingly. His blood pressure has been on the lower side with systolic anywhere between 80-100 since the beginning of his hospitalization. We will continue all the cardiovascular meds as prescribed including the digoxin and the metoprolol and I will do another fluid challenge this with 1000 mL bolus. Once that is done, we will keep him on maintenance fluid regimen of 150 mL/hour. We will continue to monitor his CVP as well. Respiratory: The patient has a large fluid collection in the left lower lung which is being managed via chest tube placed by Dr. Urbina. So far, he has had a 3 liter output from his chest tube and fluid culture studies are still pending. He is requiring more oxygen at 10 liter than he was prior and will need to be continued on Zosyn for empiric treatment for aspiration pneumonia. We have also placed a respiratory consultation for pulmonary hyperinflation therapy including acapella, inhaled sodium chloride for mucolytic clearance and any other means that respiratory finds necessary including vest, etc. We expect he will improve with further airway clearance. His worsened hypoxemia is thought secondary to continued aspiration. Gastrointestinal (GI): The patient currently is nothing by mouth due to aforementioned questionable aspiration therefore, we will followup with a moderate cookie swallow that will be done tomorrow to determine what type of feeding he can get. At this point, he may need an nasogastric (NG) tube for feeding and we will consider that tomorrow after his modified cookie swallow. In terms of the reported history of a GI bleed, looking back in the electronic medical record (EMR), the patient never had a confirmed GI bleed nor has he had any upper endoscopy or colonoscopy done. Therefore, it is our recommendation that he can continue his Xarelto. I have added subcutaneous heparin for deep venous thrombosis (DVT) prophylaxis at this time. Continue GI prophylaxis with Protonix. Endocrine: Continue his thyroid replacement. Infectious disease (ID): He will be continued on Zosyn for aspiration pneumonia as mentioned. Other: Continue fluids and will monitor for response in terms of improved vitals at this time. Continue CIWA protocol including thiamine, folate and multivitamin, however, the oral medications have been held at the moment due to fear of aspiration. We will continue these tomorrow given the results of modified cookie swallow. Critical care time; 55 minutes, not including procedure time. ADDENDUM: I, Dr. Estiven Appiah, have conducted an independent examination and history of the patient and agree with the documentation. I discussed the assessment and plan with the resident and agree with the above documentation. AYDIN
--- NOTE | 2019-10-08 14:14 | REP ---
Portable chest, 12:30 p.m., single AP view with the patient upright: Comparison is from 08:10 a.m. earlier today. Left chest tube is unchanged. The small left subpulmonic pneumothorax in the left costophrenic angle is unchanged. The left lung atelectasis has significantly improved. There is now aerated lung identified in the left hemithorax as an interval change. The left pleural effusion is again identified. The infiltrate inferiorly in the left lung is unchanged. There is opacification of the left costophrenic angle suggestive of a left pleural effusion. There has been interval placement of an endotracheal tube with the tip in satisfactory position above the isaac. There has been interval placement of a nasogastric tube with the tip in satisfactory position in the abdominal left upper quadrant. The left subclavian central venous catheter is in satisfactory position, unchanged. Impression: Improved aeration of the left lung. Interval placement of an endotracheal tube and nasogastric tube. Electronically Signed by Papo Howard MD 10/08/2019 02:06 P
[2019-10-08] MEDS: MOM 30ML SUSPENSION UDC PO SCH ×3 (16:12→23:37)
[2019-10-08] MEDS: AMIODARONE 200 MG TAB (PACERONE) NG SCH ×2 (16:12→20:25)
--- NOTE | 2019-10-08 16:21 | CCN ---
DATE: 10/08/2019 SUBJECTIVE: Mr. Weir overnight had no events other than some tachycardia and agitation/unrest, which was treated with Ativan. He continues to have shortness of breath subjectively, but is down to 6 liters of oxygen from 10 liters yesterday. He reports that he is able to sleep well and is very hungry and wishes to eat today; however, he is on precautions for aspiration as he has reportedly aspirated when he was eating after he was admitted. The events of this morning include: after review of his chest x-ray by myself, Dr. Appiah, and Dr. Urbina, it was decided to take the patient to the operating room for intubation and bronchoscopy to remove mucous plugs, as his left lung appeared to be acutely collapsed secondary to mucus plugging. He was taken to the operating room around 11:00 a.m. and was intubated under the guidance of anesthesia, Dr. Espinoza, and he underwent bronchoscopy and was found to have copious amounts of grayish mucus that was thin in texture which was suctioned out. His airways were very friable. The patient seemed to tolerate this procedure well. Now he is sedated, intubated in the intensive care unit (ICU) under intermittent Versed. He is intermittently awake. He is responsive and has no complaints at this time. OBJECTIVE: VITAL SIGNS: Temperature 98.1, pulse 136, respiratory rate 16, blood pressure 92/54, pulse oximetry 93% on 50% FiO2. Input and output: In the past 24 hours he has had 730 mL of output, including chest tube drainage of 250 mL for a total drainage of about 3.5 liters drainage from the chest tube. PHYSICAL EXAMINATION: Currently, he is lying in bed. He is calm, cooperative and in no acute distress. His extraocular movements are intact. His pupils are equal, round and reactive to light. His mucous membranes are moist. He is currently intubated and has nasogastric tube in place as well. NECK: Supple with no thyromegaly and no lymphadenopathy. CHEST: There is even chest rise. LUNGS: Ventilated lung sounds can be appreciated in all lung horner. There are decreased breath sounds in the left lung. Otherwise, no crackles, wheezes or rhonchi appreciated. CARDIOVASCULAR: Irregularly irregular with no discernible murmurs, rubs or gallops, although his heart rate is somewhat fast in order to determine this. He does not have elevated jugular venous distention (JVD). GASTROINTESTINAL: He is somewhat tender to deep palpation in the left lower and right lower quadrants, as well as the left upper quadrant at the site of chest tube placement. He has positive hypoactive bowel sounds. No masses or organomegaly. EXTREMITIES: He has no clubbing, cyanosis or edema in the lower extremities bilaterally. LYMPHATICS: He has no enlarged lymph nodes in the cervical, posterior auricular or femoral region. SKIN: He does have bandages on both of his elbows. There is a large hyperkeratotic lesion on his right lateral neck. LABORATORIES: Today, complete blood count (CBC) demonstrated a white blood cell count of 6.9, hemoglobin 10.7, hematocrit 31.3, platelet count of 66, down from 67 yesterday. Chemistries: Sodium 143, potassium 4.0, chloride 113, carbon dioxide 26, BUN 17, creatinine 0.43. His most recent blood gas after intubation and procedure was pH of 7.413, pCO2 of 34.6, pO2 of 66.3, and bicarbonate of 21.7 with base excess of -2.4. His glucose has been running low at around 68 this morning and 88 later this afternoon. Most recent imaging that was done: He did have a chest x-ray done this morning, which was reviewed by us and showed that he still has a small left pneumothorax in the left costophrenic angle that was unchanged. Air bronchograms in the left hilus, as well as worsening of the left pleural effusion. Subsequently, he underwent a CT of the chest, which was reviewed by us and found the decreased volume in the entire left lung, left chest tube in place and left pneumothorax in the costophrenic angle, as well as collapse of the entire left lung also involving the left upper part from bronchial obstruction and a new small right pleural effusion, as well as right upper lobe and right middle lobe infiltrates. After the procedure, the patient underwent another chest x-ray which was improved and showing improved aeration of the left lung, as well as endotracheal tube in place and nasogastric tube in place, and also still infiltrates and haziness in the left upper and middle lobe. ASSESSMENT: 59-year-old man with a history of atrial fibrillation, who presented after being found down at home for several days and found to have large fluid collection in his left lung, as well as possible bilateral aspiration pneumonia. He is currently in the intensive care unit (ICU) and being treated for aspiration pneumonia and pleural effusion, likely exudative in etiology. This morning he has complete atelectasis of the left lung. PLAN: 1. Cardiovascular: The patient's case is being reviewed by cardiology, who have resumed his metoprolol and his digoxin for rate control. The patient continued to be rather tachycardic in the 140s to 150s and was even up to the 160s during his procedure today. I believe that he will improve with the introduction of beta blockers as this time. We will continue to measure his central venous pressure and the most recent measurement was 6 earlier today. We have continued to have him on maintenance IV fluids, as he does appear to be hypovolemic at this time. Given that his albumin is so low we will need to be cautious of third- spacing as well. His blood pressures have been running anywhere between 80s to 90s systolic, but his MAPs have maintained above 70. It is important to keep his MAP above 65 at this time. 2. Respiratory: We will continue with the chest tube to suction at this time. He has drained over 3 liters of fluid. After his bronchoscopy today, it appears his left lung has improved in regard of aeration but he still does have areas that are inflamed and filled with mucus, mostly on the left side. We have suggested to respiratory therapy to have him placed on the vest for mucociliary clearance three times a day or four times a day as tolerated by the patient. In addition, he is currently intubated but is planned to only be intubated for 2 to 3 days as long as we can get his left lung to reexpand. Dr. Urbina is following the patient as well and monitoring for reexpansion. It is noted that the patient does have a new pleural effusion on the right side, which is not large enough to be drained at this time. We will also have the patient lay on his right side with the left lung up a significant amount of time to allow gravity to aid in mucous clearance. 3. Gastrointestinal: The patient now has an nasogastric tube and can be fed with the nasogastric tube. The hospitalist team has ordered tube feeds with Jevity at this time. Continue gastrointestinal prophylaxis with Protonix. 4. Endocrine: Continue thyroid replacement. 5. Infectious disease. Continue Zosyn for aspiration pneumonia empiric treatment. 6. Other: Continue fluids as they are written, normal saline was changed to D5 normal saline this morning due to hypoglycemia and nothing by mouth status. Continue Clinical [place] Withdrawal Assessment (CIWA) protocol for his alcohol abuse. Sedating medications as needed for the ventilator, including Versed. Disposition: Pending clinical improvement. Prognosis is guarded. Critical Care time estimated at 50 minutes excluding procedures. ADDENDUM: I, Dr. Estiven Appiah, have conducted an independent examination and history of the patient and agree with the documentation. I discussed the assessment and plan with the resident and agree with the above documentation. THOMASD
--- NOTE | 2019-10-08 17:53 | CCN ---
DATE: 10/08/2019 NOTE: Mr. Weir returned from the operating room after bronchoscopy with the plan to have him remain intubated. He also has a NG tube in. He now has bilateral chest rise. His ventilator was set and PRVC with a tidal volume of 460, rate of 16, and PEEP of 5. Of note, his 6 mL/kg title volume is 466, 7 mL is 543, and 8 mL is 621. A left-sided suction catheter has been ordered. I have had additional discussions with respiratory therapy and nursing regarding the importance of positioning to have his left side up so that gravity can help with drainage. I also discussed the possible use of the vest. Finally, I discussed that proning may be necessary. At the present time, we will keep his NG to low intermittent suction. Once he has recovered from anesthesia we will plan on starting tube feeds. He had difficulty with swallowing and was suspected to aspirate previously. In fact, he was scheduled for a cookie swallow study this morning that was cancelled because of the need for bronchoscopy. Additional critical care time 15 minutes not including procedure time. AYDIN
[2019-10-08] MEDS: METOPROLOL TART 25 MG TABLET NG SCH ×2 (18:00→23:36)
--- NOTE | 2019-10-08 18:36 | IPN ---
DATE: 10/08/2019 CARDIOLOGY PROGRESS NOTE SUBJECTIVE: Patient is a 59-year-old male who presented to the hospital after a fall on 10/02/2019, and was found down on the floor for about 2 days. Patient was found to be in atrial fibrillation with a rapid ventricular rate. Patient's heart rate has stayed around the 100s to 120s overnight. Since I had last seen the patient, patient was taken down for an intubated bronchoscopy after a CT scan showed that the patient's left lung was entirely collapsed. Patient had been made a do not resuscitate/do not intubate, however this was rescinded temporarily for about 2-3 days of mechanical ventilation after the bronchoscopy. Patient was able to open his eyes upon speaking with him and he was able to shake his head yes or no when asking him questions. When asked if patient was in any pain, patient denied any pain. PHYSICAL EXAMINATION: Temperature 98.1, pulse 104, respiratory rate 16, blood pressure 92/54, pulse oximetry 93% on an FiO2 of 50% via mechanical ventilator. GENERAL: Patient is an alert male patient who would open his eyes when spoken to and is able to shake his head yes or no to answer questions. Patient was laying on his right side with mechanical ventilator in place. HEENT: Normocephalic, atraumatic. Anicteric sclerae. NECK: Supple. Jugular venous distention was difficult to assess due to positioning and ventilation. CARDIOVASCULAR: There was an irregularly irregular rhythm with a tachycardic rate at about 105-110. No audible murmurs heard. RESPIRATORY: Clear on the right side. There was diminished to no breath sounds heard on the left lung field. ABDOMEN: Soft. The patient did not appear uncomfortable during palpation of the abdomen. EXTREMITIES: There was 2+ pitting edema around the ankles bilaterally. This has improved since yesterday. LABORATORIES: White blood cell count 6.9, hemoglobin 10.7, hematocrit 31.3, platelet count 66. Sodium 143, potassium 4.0, chloride 113, carbon dioxide 26, BUN 17, creatinine 0.43, glucose 56, calcium 7.0. A CT of the chest performed on 10/08/2019 was reported as left chest tube and left pneumothorax in the costophrenic angle are unchanged. Volume of the left pleural effusion has decreased, however there is increased collapse of the entire left lung now also involving the left upper, lobe possibly from central bronchial obstruction. There is a new large right pleural effusion in the right upper lobe and right lower lobe infiltrates are unchanged. ASSESSMENT AND PLAN: Patient is a 59-year-old who presented to the hospital after being found down for greater than 48 hours with atrial fibrillation with rapid ventricular response. 1. Atrial fibrillation (permanent): Patient still remains in atrial fibrillation and his ventricular rate is controlled, around 100 beats per minute. Patient is now intubated. Patient remains on digoxin, on 0.125 mg via the IV. Patient was nothing by mouth so he did not receive his doses of amiodarone, so this will be reordered to be given via nasogastric (NG) tube. Patient will also have low dose metoprolol with a hold parameter of pulse less than 90. Patient is on low dose aspirin and low molecular weight heparin, but not on an oral anticoagulate because of a prior history of gastrointestinal (GI) bleeding. 2. Abnormal electrocardiogram/right bundle branch block: Conduction abnormality in axis believed to be related to his cor pulmonale. No evidence of bradyarrhythmia or high-grade atrioventricular (AV) block despite combination of negative chronotropic therapy. Patient remains on the monitor and does not report chest pain. 3. Cor pulmonale: Well documented, at least moderately severe pulmonary hypertension and right heart enlargement with prior right heart failure dating back to 2001. Still has elevated pulmonary arterial pressures, but his estimated central venous pressure (CVP) at this time is low related to his anorexia and recent diarrhea. Patient has been given ample IV fluid resuscitation, however he does have persistent hypotension with mild prerenal azotemia. Patient's albumin is also quite low, which could be exacerbating his edema. 4. 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 Despite his ongoing smoking and alcohol intake, his estimated left ventricular ejection fraction was within normal limits even with a septal wall abnormality due to right ventricular pressure overload. Previously documented mildly dilated left atrium has also normalized with mean left atrial pressures within normal limits. At this time, patient's heart rate is slightly inadequately controlled secondary to him being nothing by mouth and not receiving his oral medications. We will restart that now that a nasogastric (NG) tube is in place and we will continue to monitor the patient. My faculty preceptor for this patient encounter was physically present during the encounter and was fully available. All aspects of the patient interview, examination, medical decision making process, and medical care plan development were reviewed and approved by the faculty preceptor. The faculty preceptor is aware and concurs with the plan as stated in the body of this note and will attest to such by his cosignature.
[2019-10-08] MEDS: CHLORHEXIDINE GLUCONATE 0.12 % 15ML UDC (PERIDEX ORAL RINSE) MT SCH (20:25)
[2019-10-09] VITALS (26 sets, daily range): BP systolic 84–104; BP diastolic 50–89; O2SAT 97–98
[2019-10-09] MEDS: MORPHINE 2 MG/ML 1ML VIAL (J2270) IV PRN ×3 (00:32→18:15)
[2019-10-09] MEDS: MOM 30ML SUSPENSION UDC PO SCH ×2 (03:46→08:15)
[2019-10-09] MEDS: PIPERACILLIN/TAZOBACTAM SOD 4.5 GM in D5W MINI-BAG PLUS 50 ML IV SCH ×4 (04:05→22:28)
[2019-10-09] MEDS: KETOROLAC 30 MG/ML VIAL (J1885) IV SCH ×4 (04:05→20:53)
[2019-10-09 04:26] LABS: BASO % 0.3 % (0.0-1.0); EOS # 0.4 10^3/uL (0.0-0.5); EOS % 5.8 % (0.0-3.0); HEMATOCRIT 29.4 % (42.0-52.0); HEMOGLOBIN 9.7 g/dl (13.5-17.5); LYMPH # 0.7 10^3/uL (1.5-5.0); LYMPH % 9.9 % (24.0-44.0); MEAN CORPUSCULAR HEMOGLOBIN 37.6 pg (27.0-33.0); MONO # 0.3 10^3/uL (0.0-0.8); MONO % 3.5 % (0.0-5.0); NEUTROPHILS # 5.8 10^3/uL (1.5-8.5); NEUTROPHILS % 79.1 % (36.0-66.0); PLATELET COUNT, AUTOMATED 62 10^3/uL (150-450); RED BLOOD COUNT 2.58 10^6/uL (4.30-6.10); WHITE BLOOD COUNT 7.4 10^3/uL (4.0-10.0)
[2019-10-09] MEDS: METOPROLOL TART 25 MG TABLET NG SCH ×4 (05:02→23:47)
[2019-10-09 05:08] LABS: BLOOD UREA NITROGEN 17 MG/DL (7-18); CARBON DIOXIDE LEVEL 24 MEQ/L (21-32); CHLORIDE LEVEL 116 MEQ/L (98-107); CREATININE FOR GFR 0.62 MG/DL (0.70-1.30); GLOMERULAR FILTRATION RATE > 60.0 (>56); GLUCOSE, FASTING 150 MG/DL (70-100); POTASSIUM SERUM 3.4 MEQ/L (3.5-5.1); SODIUM LEVEL 143 MEQ/L (136-145)
[2019-10-09 05:50] LABS: ABG pH (ARTERIAL) 7.464 UNITS (7.350-7.450)
[2019-10-09 05:51] LABS: ABG BASE EXCESS -1.4 (-2.0-2.0); ABG HCO3 21.7 MEQ/L (22.0-26.0); ABG O2 SATURATION 98.3 % (95.0-99.0); ABG PARTIAL PRESSURE CO2 30.9 mmHg (35.0-45.0); ABG PARTIAL PRESSURE O2 117.4 mmHg (75.0-100.0); ABG STANDARD HCO3 23.3 MEQ/L (22.0-26.0); ABG TOTAL CO2 22.6 MEQ/L (22.0-29.0)
--- NOTE | 2019-10-09 07:37 | REP ---
Clinical: Status post intubation. Comparison: 10/08/2019. Findings: Endotracheal tube 2.2 cm above the isaac. Nasogastric tube courses below left hemidiaphragm. Left subclavian catheter with tip in the SVC. Left basilar chest tube in stable position. Significantly improved aeration and decreased pleuroparenchymal opacities involving the left hemithorax noted including decreased pleural effusion. The pleuroparenchymal changes involving the right hemithorax remains stable including suspected small air fluid levels. Impression: 1. Decreased effusion and improved aeration to the left hemithorax. 2. Stable appearance to the right hemithorax. Electronically Signed by Alexsander Marsh MD 10/09/2019 07:28 A
[2019-10-09] MEDS ORDERED: KCL 20MEQ IN 100ML SWI (KRUN) 20 MEQ in IV 1 EA IV SCH ×2 (08:00)
[2019-10-09] MEDS: PANTOPRAZOLE 40MG INJ (PROTONIX) (C9113) IV SCH (08:15)
[2019-10-09] MEDS: CHLORHEXIDINE GLUCONATE 0.12 % 15ML UDC (PERIDEX ORAL RINSE) MT SCH ×2 (08:15→20:54)
[2019-10-09] MEDS: LEVOTHYROXINE 100 MCG (0.1MG) VIAL IV SCH (08:15)
[2019-10-09] MEDS: DIGOXIN 0.125 MG TAB NG SCH (08:18)
[2019-10-09] MEDS: AMIODARONE 200 MG TAB (PACERONE) NG SCH (08:18)
[2019-10-09] MEDS ORDERED: POTASSIUM CHLORIDE 10% LIQ 20 MEQ/15 ML UDC PO SCH (09:00)
--- NOTE | 2019-10-09 09:04 | IPN ---
DATE: 10/08/2019 Mr. Weir's chest x-ray today shows that his left hemithorax is completely opacified. I therefore obtained a CT scan and confirmed that it was atelectasis secondary to mucus plugging with only a small residual pleural effusion. I therefore asked Dr. Appiah to take him to the operating room and bronchoscope him and clear his secretions. Please see discussion below. His vital signs show a maximum temperature (T max) of 99.2 with a heart rate that ranges between 179 and 140, generally in atrial fibrillation, respiratory rate 16 to 24 with the use of cervical accessory muscles, and he is 81% to 99% saturated on 6 liters nasal cannula. Blood pressure is ranging between 105/63 to 85/57. His intake and output over the past 24 hours has been recorded as 2630 in and 465 out for a positivity of 2165 mL. He has put out 200 mL from his chest tube. It is becoming a little bit less opaque. There is no air leak. He has not taken in any appreciable by mouth intake. On physical examination today, he has markedly decreased breath sounds on the left side with bronchophony and E to A egophony. Percussion note is dull throughout the left chest. Right side shows coarse rhonchi and rales throughout both inspiration and expiration with a percussion note that is full to the diaphragm. Cardiac exam is without murmurs, clicks, gallops or rubs. I cannot feel his point of maximum impulse (PMI). S1, S2 are normal. Abdomen is soft and nontender. Bowel sounds are positive, but hypoactive. There is no hepatomegaly. No costovertebral angle (CVA) tenderness. Extremities show trace pretibial edema. No calf tenderness. No differential swelling of the upper extremities. Skin is warm, dry and perfused, without cyanosis or mottling, including that of the nail beds and the knees. Neck is supple. There is no jugular venous distention, no subcutaneous emphysema. Trachea is midline. Mouth shows his mucous membranes to be pink and moist. Eyes show his pupils to be equal and reactive. Extraocular motions intact. Sclerae anicteric. Neurologic shows gross motor and gross sensation intact along with II-XII intact. Gait is not tested. Psychiatric shows him to be awake and alert, oriented times three with appropriate mood and affect and conversational. His white count today is 6.9 with a hemoglobin and hematocrit of 10.7 and 31.3 and a platelet count of 66. Differential shows 80% neutrophils, 10% lymphocytes, 4% monocytes. There are no immature forms and no toxic granulations. Chemistries show essentially normal electrolytes with a BUN and creatinine of 17 and 0.43, glucose of only 56, and calcium of 7.0. I discussed his pleural fluid yesterday being classic empyema, both by laboratory and by inspection. As noted above, his chest x-ray shows his lung completely opacified on the left side. There is a mediastinal shift to the left. CT scan also discussed above and shows residual fluid at the top of the chest, but most of the chest is secondary to opacification and consolidation of the left lung. There is no pericardial effusion. He does have a smaller right pleural effusion. He has infiltrative processes in the middle and lower lobes on the right side. IMPRESSION: 1. Underlying sepsis. 2. Underlying pneumonia, right and left sides. 3. Probable aspiration. 4. Complete consolidation of the left lung with mucus plugging. 5. Minimal retained fluid in the left hemithorax. 6. Thrombocytopenia. 7. Hypotension. 8. Volume depletion, improving. 9. Prior alcohol abuse. 10. Protein-calorie malnutrition. 11. Atrial fibrillation with rapid ventricular response, controlled. PLAN AND DISCUSSION: As noted above, I have asked Dr. Appiah to do a bronchoscopy and clear his mucus secretions. He is going to be a very difficult intubation and therefore I will arrange for him to be taken to the operating room and have anesthesia intubate him. Because this will no doubt happen again over the next few days I would suggest he remain intubated. After she clears the lung, I may have to do a tPA pleurolysis on the left side for the residual fluid in his chest. He continues on Zosyn. Microbiology has returned pleural fluid with Pseudomonas aeruginosa, which is certainly a consideration because of the green appearance of the fluid. He is sensitive to everything.
[2019-10-09] MEDS: SENOKOT S TAB PO SCH ×2 (09:30→21:00)
[2019-10-09] MEDS: SIMETHICONE 80 MG CHEW TAB NG SCH ×3 (09:30→20:55)
[2019-10-09] MEDS: MIDAZOLAM INJ 2 MG/2 ML VIAL (J2250) IV PRN ×2 (09:30→17:06)
[2019-10-09 09:38] LABS: PHOSPHORUS LEVEL 1.5 MG/DL (2.5-4.9)
--- NOTE | 2019-10-09 10:26 | CCN ---
DATE: 10/09/2019 SUBJECTIVE: The patient did well overnight on the ventilator. He this morning denies any trouble breathing. He does report some abdominal pain and he is very eager to have his nasogastric (NG) tube and his intubation reversed. Otherwise, he denies any pain. He is reporting he is a little bit anxious, but otherwise he has no complaints. Nursing reports he did well overnight. He is producing thin, grayish, steele mucus, that they are suctioning. There were no issues with the ventilator. OBJECTIVE: His vitals reveal his temperature is 98.7, pulse 92, respiratory rate 26, blood pressure 87/53, with a MAP of 64, pulse oximetry 98% on 40% FiO2 on the ventilator. He had total intake of 1600 mL and output of 900 mL of urine with urine output of 0.47 mcg/kg/hr yesterday. He had also one bowel movement yesterday. PHYSICAL EXAMINATION: Generally, he is laying in bed, leaning on to his right side. He is calm, cooperative, in no acute distress. He is very awake and alert and responsive. Head: Normocephalic, atraumatic. Neck is supple with no thyromegaly and no lymphadenopathy. Chest: There is even chest rise. Lungs: Ventilated lung sounds can be appreciated in all lung horner. He does have some faint crackles in his right lower lobe and left lower lobe bilaterally. Otherwise no wheezes or rhonchi are appreciated. Cardiovascular: Irregularly irregular with no discernible murmurs, rubs or gallops. Normal S1, normal S2, and his heart rate is controlled. He does not have jugular venous distention at this time. Gastrointestinal (GI): He is somewhat tense and there is pain to deep palpation in all four quadrants. He has positive bowel sounds. No masses. No organomegaly. Extremities: He has no clubbing, cyanosis or edema in his lower extremities. Lymphatics: He has no enlarged lymph nodes in the cervical, posterior, auricular or femoral region. Skin: He does have bandages on both of his elbows and there is a large hyperkeratotic lesion on the right lateral neck. Psych: He appears somewhat anxious. LABS: Today, his CBC demonstrates a white blood cell count of 7.4, hemoglobin 9.7, hematocrit 29.4, and platelet count of 62 down from 66 yesterday. His chemistries demonstrate a sodium of 143, potassium 3.4, chloride 116, and carbon dioxide of 24. His BUN is 17 and his creatinine is 0.62. Phosphorus level is pending at this time. His blood gas this morning at 5:32 a.m. was found to be 7.464, 30.9, pO2 of 117.4 with a base excess of -1.4. In the fluid that was collected from his chest tube, he was found to be growing Pseudomonas which is sensitive to everything and also in his bronchoalveolar lavage (BAL) culture, he was found to be growing a yeast-like organism. He did have a chest x-ray done this morning which was reviewed by myself and found that the endotracheal tube was 2.2 cm above the isaac. He has significantly improved aeration and decreased pleural parenchymal opacities involving the left hemithorax noted, including decreased pleural effusion. The pleural parenchymal changes involving the right hemithorax remain stable, including suspected small air fluid levels. Overall improvement from the chest x-ray that was done after the procedure yesterday. ASSESSMENT: This is a 59-year-old man with a history of atrial fibrillation who presented after being found down at home for several days and found to have a large fluid collection in his lung as well as possible bilateral aspiration pneumonia. He is status post chest tube placement in the left lung as well as intubation in the operating room (OR) and BAL for mucus plugging. Today, it appears that his lung has better aeration, but he still does have some fluid in the bases bilaterally. We will continue intubation for now. PLAN: 1. Cardiovascular. The patient's heart rate has been controlled better with metoprolol, with hold parameters, and digoxin. Cardiology is seeing the patient. I do believe his heart rate is stable on the current medication. We will continue to check his central venous pressure, although we have stopped fluids at this time due to the risk of third spacing as his albumin is quite low. His blood pressures have been remaining in the 80s to 90s systolic, although his MAPs are somewhat stable above 70. Again, we would like his MAP to stay above 65 at this time. 2. Respiratory. Continue measurement of the chest tube drainage. At this time, he is ventilated on PRVC mode. Will likely be intubated for at least another day as we can monitor the aeration of his left lung and to ensure that it will not collapse. He is a difficult intubation, therefore, would want to be safer with keeping the tube in as long as needed for proper mucociliary clearance in his lungs. He is currently on Zosyn for his aspiration pneumonia and pseudomonas As he is improving clinically would not add additional antibiotic for double pseudomonal coverage and as it was sensitive to zosyn. When he is eventually extubated, he will need a swallow study as he was aspirating prior to this intubation. In addition, continue the pulmonary toilet in the form of the vest and the respiratory therapy treatments and we will get another chest x-ray tomorrow morning to determine how well this process is going. In addition, his ABG today had improved from yesterday - 7.464, 30 and 117, with a base excess of -1.4. 3. GI. The patient continues with tube feeds of Jevity and will add a protein supplement via the NG tube. Continue Protonix for GI protection. The patient is somewhat tender on exam today with some distended bowel and we have left the primary team to discern what the best bowel regimen for him will be. 4. Neurologic. We will keep the patient on as needed sedation with Versed and/or Ativan for anxiety as he is awake and would likely benefit from a little bit of sedation due to the discomfort from the intubation. 5. Infectious disease. Continue Zosyn for pneumonia with complicated parapneumonic effusion from pseudomonas 6. We have stopped the fluids at this time for the reason as mentioned above regarding his protein calorie malnutrition and the risk of third spacing. Continue CIWA protocol. The patient's potassium and phosphorus were low this morning and we will leave it to the primary team to replace. DISPOSITION: Pending clinical improvement. Plan is to possibly extubate the patient in the next 24 to 48 hours pending improvement in his lung exam. CRITICAL CARE TIME: Estimated at 35 minutes. Code status: Full code, prior DNR/DNI rescinded I, Arlen Corona, have conducted an independent examination and history of the patient and agree with plan as detailed above by the resident and discussed during rounds. AYDIN
[2019-10-09] MEDS ORDERED: LORazepam 2 MG/ML VIAL (J2060) IV PRN ×2 (10:45→18:00)
--- NOTE | 2019-10-09 12:23 | IPNPDOC ---
Text Note Date of Service The patient was seen on 10/09/19. NOTE S: Patient was examined at bedside. He complained of abdominal pain. He is able to pass gas and has been having bowel moments since presentation. remains intubated and on profofol with chest tube in place. O: Vitals : As below. GENERAL: cachectic, chronically ill-appearing gentleman, In no significant distress, able to answer questions with head nods, intubated. HEENT: NG tube place in placed, Currently on a ventilator Chest: , left subclavian CVC in place, no use of accessory muscles, decreased respiratory effort, anteriorly clear to auscultation, has chest tube in palce. Heart: S1, S2 present, no murmurs, no rubs, no gallops Abd: nonobese, no pain, bs present Ext: No edema, no cyanosis A/P: 58-year-old white male with a history of a-fib, jaw cancer s/p jaw reconstruction, noncompliance with medical care, and hip fracture to the left hip, presents to the ED via ambulance, with a report that he fell a few days ago after losing his balance and has been on the floor since then without food, water, and medication. He was found to be severely dehydrated and in A. fib with RVR #Sepsis secondary to empyema - Status post drainage, chest tube in place with adequate drainage -Status post bronchoscopy with clearance of secretions and few mucus plugs in the left lower lobe. - fluid culture few Pseudomonas. -Continue with Zosyn for empyema, no leukocytosis -Currently on assisted ventilation, will likely be on ventilation for another day or 2. Ventilations managed by critical care team #Intubation for respiratory support s/p bronchoscopy -Managed by critical care team, will be extubated tomorrow -Monitor ABG #Severe Protein calorie malnutrition/FTT -BMI 13.6 kg/m2 -Ensure protein shake as nutritional supplements - nutrition consult -Tube feeding with NG tube with Jevity - will Watch for refeeding syndrome, monitor phosphorus, magnesium and potassium and replace as needed #Afib/RVR - Echo with normal EF and moderate pulmonary hypertension - follow as per cardiology - assistance appreciated -Continue IV digoxin -Continue metoprolol -Discontinued amiodarone on 10/09/19 -Heart rate has been stable. #Hypophosphatemia -Bene protein -Phosphate replacement -Monitor phosphate levels daily #Thrombocytopenia secondary to alcohol abuse related bone marrow suppression, severe infection -Will continue to monitor. Will transfuse platelets if necessary, currently patient does not have any bleeding episodes. - no heparin. #Abdominal ileus, secondary to hypophosphatemia, -Senokot, simethicone -Patient's passing flatus as well as making bowel movement. #alcohol dependence and abuse -[facility] protocol -Ativan for agitation #Hypokalemia -Replacement ordered, will address daily. # Aspiration -Failed speech evaluation therapy, -Patient did not undergo cookie swallow due to intubation and bronchoscopy. We'll reevaluate his swallow status once patient has been extubated #Hypoglycemia -Resolved #Hypothyroid - IV levothyroxine #Hypotension with adequate MAP, did not need any pressers. - Stable. -No IV fluids #fall - PT/OT when extubated #medical non-compliance - complicates care #right foot wound - optifoam daily dressing #Lactic acidosis - resolved #Jaw cancer -Status post reconstruction #DVT prophylaxis - mechanical VS,Fishbone, I+O VS, Fishbone, I+O Laboratory Tests 10/09/19 04:00 Vital Signs Date Time Temp Pulse Resp B/P (MAP) Pulse Ox O2 Delivery O2 Flow Rate FiO2 10/09/19 12:00 45 10/09/19 11:27 83 88/51 10/09/19 10:00 96 Ventilator 10/09/19 08:00 98.5 22 10/08/19 08:00 6.0 I&O- Last 24 Hours up to 6 AM 10/09/19 06:00 Intake Total 2490 ml Output Total 400 ml Balance 2090 ml Attending Note I personally saw and evaluated the patient. I agree with the findings and the plan of care documented above in the resident/ medical student note. LEON CARUSO DO Oct 09, 2019 12:23 JING BHAT MD Oct 09, 2019 20:50
--- NOTE | 2019-10-09 13:59 | IPN ---
DATE OF SERVICE: 10/09/2019 Mr. Weir is doing so much better today. His chest x-ray shows his lung fully expanded to the chest wall except for a small area of entrapment in the lower left hemithorax. He is awake and alert. He is still intubated. His vital signs show a maximum temperature (Tmax) of 98.7 with a heart rate that ranges between 92 and 83 in atrial fibrillation with a blood pressure that is ranging between 104/65 to 91/61, and a respiratory rate on pressure-regulated volume control (PRVC) ventilator settings of 22-26. He is on 45% FIO2 with a tidal volume of 460, a PEEP of 5, and FIO2 of 45%. His intake and output over the past 24 hours has been recorded as 1580 in and 905 out for a positivity of 675 mL. He has put out 320 mL from the chest tube, and there is no air leak. Weight today is 58.9 kg compared to 52.2 kg the day before. On physical examination, his lungs are remarkably clear with normal vesicular sounds. Percussion notes are full to the diaphragm. I hear no wheezing or rales. Cardiac examination is without murmurs, clicks, gallops, or rubs. I cannot feel his point of maximum impulse (PMI). S1, S2 are normal. Abdomen is soft and nontender. Bowel sounds are positive but very hypoactive. There is no hepatomegaly. No costovertebral angle (CVA) tenderness. Extremities show no pretibial edema. No calf tenderness. No differential swelling of the upper extremities. Skin is warm, dry, and perfused without cyanosis or mottling, including that of the nail beds and the knees. Neck is supple. There is no jugular venous distention, no subcutaneous emphysema. Trachea is midline. Mouth shows that he is intubated. Eyes show his pupils to be equal and reactive. Extraocular motions intact. Sclerae anicteric. Neurologic shows II-XII intact along with gross motor and gross sensation intact. Gait, of course, is not tested. Psychiatric shows him to be awake and alert and can obey commands. His white count today is 7.4 with a hemoglobin and hematocrit of 9.7 and 29.4 and a platelet count of 62. Differential shows 79% neutrophils, 9% lymphocytes, 5% monocytes. There are no immature forms and no toxic granulations. His electrolytes show a potassium of 3.4. The remainder normal, and a BUN and creatinine of 17 and 0.62, phosphorus of 1.5, and a calcium 7.0. Magnesium 2 days ago was 2.0. Microbiology is showing pseudomonas aeruginosa sensitive to everything in the pleural fluid. There is a yeastlike organism in his sputum. No organisms were seen in the sputum, although there are copious amounts of white cells. Blood cultures are negative. Respiratory syncytial virus (RSV) PCR is negative. His chest x-ray as noted above shows his lung reexpanded. He still has infiltrative process in what looks to be the lingula and the right lower lobe. There is a small area of fluid level in the right lower hemithorax and the diaphragm. I am not sure if that is artifactual. He does have a known small pleural effusion from his CT scan yesterday. He is now being fed via nasogastric (NG) with tube feedings. IMPRESSION: 1. Underlying sepsis. 2. Underlying pneumonia, right and left sides. 3. Probable aspiration. 4. Complete consolidation of the left lung with mucus plugging. Resolved with a bronchoscopy yesterday. 5. Minimal retained fluid in the left hemithorax. 6. Small right pleural effusion. 7. Thrombocytopenia. Most likely secondary to his sepsis. 8. Hypotension. 9. Volume depletion, improved. 10. Prior alcohol abuse. 11. Protein-calorie malnutrition. 12. Atrial fibrillation with rapid ventricular response, controlled. 13. Hypokalemia. PLAN AND DISCUSSION: Our plan as per yesterday was to keep him intubated for at least 48 hours to make sure that he does not mucus plug. He is on the therapy vest for mobilization of secretions. He is on the appropriate antibiotics at this point in time. We are all very gratified of his course so far. I think that his underlying sepsis is now resolving. The road test is going to be when we extubate him for him to be able to mobilize his secretions. We should continue the therapy vest even after we extubate him.
[2019-10-09] MEDS: K-PHOS NEUTRAL 250MG TABLET (SOD.PHOSPHATE/POT.PHOSPHATE) PO SCH ×3 (14:38→20:55)
[2019-10-09] MEDS: POTASSIUM CHLORIDE 10% LIQ 20 MEQ/15 ML UDC PO SCH ×2 (14:45→20:54)
--- NOTE | 2019-10-09 15:25 | IPN ---
DATE: 10/09/2019 CARDIOLOGY PROGRESS NOTE SUBJECTIVE: Patient is a 59-year-old male who presented to the hospital after a fall on Monday10/02/2019 and was found down on the floor for two days. Patient was admitted on 10/04/2019. Patient was found to be atrial fibrillation with a rapid ventricular rate. Patient's heart rate overnight today stayed between 80s and 90s and he was mostly not getting his beta musa metoprolol secondary to hold parameters of heart rate less than 90. Patient's heart rate was slightly elevated yesterday as he was made nothing by mouth for a procedure and did not receive his amiodarone or digoxin. Since being restarted on these medications, his heart rate has remained in the 80s to 90s. Patient is on mechanical ventilator but is able to answer questions by shaking his head yes or no or pointing to areas. Patient says his belly hurts but feels otherwise, while he is asking when he can have the tube removed. PHYSICAL EXAM: VITALS: Temperature 98.7, pulse 92, respiratory rate 26, blood pressure 87/53, pulse oximetry 98% on 40% FiO2 on the ventilator. Patient's intake and output shows a net balance of positive 6222 mL. Patient is currently 58.9 kg and weight on the 10/06/2019 was 52.2. GENERAL: Patient is alert. Although patient on mechanical ventilator, he was able to answer questions by shaking his head yes or no. Patient did not appear to be in any acute distress. Patient is cachectic-appearing. HEENT: Normocephalic with anicteric sclerae. Patient appeared to have moist mucous membranes. NECK: Supple. No evidence of jugular venous distention (JVD). CARDIOVASCULAR: Irregularly irregular rhythm with a non-tachycardic rate. There were no murmurs auscultated and there was a normal S1 and S2. RESPIRATORY: Right lung was clear. Left lung showed improved aeration with some crackles throughout the left lung field. ABDOMEN: Mildly distended and hyper-tympanic to percussion. Patient appeared to grimace when palpating the upper parts of the abdomen. EXTREMITIES: Patient still has +2 pitting edema around the ankles bilaterally. LABORATORIES: CBC shows white blood cell 7.4, hemoglobin 9.7, hematocrit 29.4, platelet count 62. Sodium 143, potassium 3.4, chloride 116, carbon dioxide 24, BUN 17, creatinine 0.62m, glucose 150, calcium 7.0. Patient had a chest x-ray performed today, which was independently reviewed, which showed improved aeration of the left lung. There is still a small residual pneumothorax that is seen in the left costophrenic angle. Heart size is within normal limits. There is gaseous distention of the colon that is present and can be seen. ASSESSMENT/PLAN: Patient is a 59-year-old male who presented to the hospital after being found down greater than 48 hours with atrial fibrillation with rapid ventricular response. 1. Atrial fibrillation, (permanent): Patient still remains in atrial fibrillation, however, his ventricular rate is controlled around the 80s. Patient is now intubated. Patient remains on digoxin 0.125 mg and metoprolol 25 mg every 6 hours with hold parameter of pulse less than 110. Patient's amiodarone has been discontinued. Patient is on low dose aspirin low molecular rate heparin but is not on oral anticoagulation due to prior history of GI bleeding. 2. Abnormal EKG/right bundle branch block: Conduction abnormality and axis is believed related to cor pulmonale. No evidence of bradyarrhythmia or high-grade AV block despite combination negative chronotropic therapy. Patient remains on the monitor and did not report any chest pain. 3. Cor pulmonale: Well documented, with at least moderately severe pulmonary hypertension with right heart enlargement with prior right heart failure dating back to 2001, still with elevated pulmonary arterial pressures but his estimated central venous pressure (CVP) at this time is low related to anorexia and recent diarrhea. Patient has been given ample IV fluid hydration, however, he does have persistent hypotension with mild prerenal azotemia. Patient's albumin is also quite low, which can be exacerbating his edema. 4. 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 Despite ongoing smoking and alcohol intake, estimated left ventricular ejection fraction was within normal limits even with a septal wall abnormality to right ventricular pressure overload. Patient has a documented mildly dilated left atrium which is also normalized with mean left atrial pressures within normal limits. Patient is receiving his medications through his nasogastric (NG) tube and will continue receiving these medications orally once the NG tube has been removed. [facility]
[2019-10-09] MEDS: ACETAMINOPHEN 325 MG/10.15 ML UDC GT PRN (22:28)
[2019-10-10] VITALS (17 sets, daily range): BP systolic 89–106; BP diastolic 51–67
[2019-10-10] MEDS: MORPHINE 2 MG/ML 1ML VIAL (J2270) IV PRN ×4 (01:42→18:17)
[2019-10-10] MEDS: SIMETHICONE 80 MG CHEW TAB NG SCH ×4 (03:00→20:10)
[2019-10-10] MEDS: PIPERACILLIN/TAZOBACTAM SOD 4.5 GM in D5W MINI-BAG PLUS 50 ML IV SCH ×4 (03:51→20:11)
[2019-10-10] MEDS: KETOROLAC 30 MG/ML VIAL (J1885) IV SCH ×4 (03:51→20:11)
[2019-10-10 05:25] LABS: ABG HCO3 22.7 MEQ/L (22.0-26.0); ABG O2 SATURATION 95.1 % (95.0-99.0); ABG PARTIAL PRESSURE CO2 30.2 mmHg (35.0-45.0); ABG PARTIAL PRESSURE O2 68.1 mmHg (75.0-100.0); ABG STANDARD HCO3 24.4 MEQ/L (22.0-26.0); ABG TOTAL CO2 23.6 MEQ/L (22.0-29.0); ABG pH (ARTERIAL) 7.494 UNITS (7.350-7.450)
[2019-10-10] MEDS: METOPROLOL TART 25 MG TABLET NG SCH ×3 (06:00→18:00)
[2019-10-10 06:15] LABS: BASO % 0.4 % (0.0-1.0); EOS # 0.4 10^3/uL (0.0-0.5); EOS % 5.4 % (0.0-3.0); HEMATOCRIT 27.4 % (42.0-52.0); HEMOGLOBIN 9.2 g/dl (13.5-17.5); LYMPH # 0.7 10^3/uL (1.5-5.0); LYMPH % 9.4 % (24.0-44.0); MEAN CORPUSCULAR HEMOGLOBIN 37.9 pg (27.0-33.0); MEAN CORPUSCULAR HGB CONC 33.6 g/dl (32.0-36.5); MEAN CORPUSCULAR VOLUME 112.8 fl (80.0-96.0); MONO # 0.3 10^3/uL (0.0-0.8); NEUTROPHILS # 5.9 10^3/uL (1.5-8.5); NEUTROPHILS % 79.3 % (36.0-66.0); RED BLOOD COUNT 2.43 10^6/uL (4.30-6.10); WHITE BLOOD COUNT 7.4 10^3/uL (4.0-10.0)
[2019-10-10 06:19] LABS: PLATELET COUNT, AUTOMATED 73 10^3/uL (150-450)
[2019-10-10 06:43] LABS: BLOOD UREA NITROGEN 17 MG/DL (7-18); CALCIUM LEVEL 6.8 MG/DL (8.5-10.1); CARBON DIOXIDE LEVEL 27 MEQ/L (21-32); CHLORIDE LEVEL 121 MEQ/L (98-107); GLOMERULAR FILTRATION RATE > 60.0 (>56); GLUCOSE, FASTING 98 MG/DL (70-100); PHOSPHORUS LEVEL 1.1 MG/DL (2.5-4.9); POTASSIUM SERUM 4.7 MEQ/L (3.5-5.1); SODIUM LEVEL 149 MEQ/L (136-145)
--- NOTE | 2019-10-10 07:25 | REP ---
Portable chest, 06:54 a.m., to AP views with the patient upright: Varices are 10/09/2019 and 10/08/2019. The left thoracotomy tube is unchanged. The small subpulmonic pneumothorax in the left costophrenic angle, unchanged. The previous large left pleural effusion on 10/08/2019 has entirely resolved. There are a few small areas of atelectasis in the left lung. There is an infiltrate inferiorly in the right lung, unchanged. There is interstitial coarsening, unchanged. There are surgical clips in the right axilla and at the base of the neck on the right and in the left axilla, unchanged. The tip of the endotracheal tube is just above the isaac. The nasogastric tube terminates in the upper abdomen, the precise location of the distal tip is excluded at the inferior film margin. There is a chest tube projected over the mediastinum, possibly a mediastinal tube. Cardiac size is slightly enlarged, unchanged. Impression: There is no significant change from 10/09/2019. Electronically Signed by Papo Howard MD 10/10/2019 07:16 A
[2019-10-10] MEDS: SENOKOT S TAB PO SCH ×2 (09:00→20:25)
[2019-10-10] MEDS ORDERED: FUROSEMIDE 20 MG/2 ML VIAL (J1940) IV ONE (09:00)
[2019-10-10] MEDS: K-PHOS NEUTRAL 250MG TABLET (SOD.PHOSPHATE/POT.PHOSPHATE) PO SCH ×3 (09:10→20:10)
[2019-10-10] MEDS: CHLORHEXIDINE GLUCONATE 0.12 % 15ML UDC (PERIDEX ORAL RINSE) MT SCH ×2 (09:10→20:10)
[2019-10-10] MEDS: PANTOPRAZOLE 40MG INJ (PROTONIX) (C9113) IV SCH (09:11)
[2019-10-10] MEDS: LEVOTHYROXINE 100 MCG (0.1MG) VIAL IV SCH (09:11)
[2019-10-10] MEDS: DIGOXIN 0.125 MG TAB NG SCH (09:12)
[2019-10-10 09:40] LABS: ABG BASE EXCESS 0.2 (-2.0-2.0); ABG HCO3 22.9 MEQ/L (22.0-26.0); ABG O2 SATURATION 94.3 % (95.0-99.0); ABG PARTIAL PRESSURE CO2 30.7 mmHg (35.0-45.0); ABG PARTIAL PRESSURE O2 67.8 mmHg (75.0-100.0); ABG STANDARD HCO3 24.6 MEQ/L (22.0-26.0); ABG TOTAL CO2 23.9 MEQ/L (22.0-29.0); ABG pH (ARTERIAL) 7.491 UNITS (7.350-7.450)
--- NOTE | 2019-10-10 09:56 | IPNPDOC ---
Text Note Date of Service The patient was seen on 10/10/19. NOTE S: Patient was examined at bedside. He continues to be intubated, answers questions appropriately with had nod. Overnight patient had a low-grade fever of 100.0. He was given Tylenol, his fever subsequently subsided. He denies any acute pain with had nod O: Vitals : As below. GENERAL: cachectic, chronically ill-appearing gentleman improving visually, does not appear to be in significant distress, HEENT NG tube in place, endotracheal tube is also in place. Head is atraumatic, pupils are round, reactive to light, Chest: , left subclavian CVC in place, no use of accessory muscles, improved respiratory effort, chest tube in place ( continues to drain). Heart: S1 and S1 present, no murmurs rubs or gallops Abd No organomegaly, soft, bowel sounds present Ext: No edema, no cyanosis A/P: 58-year-old white male with a history of a-fib, jaw cancer s/p jaw reconstruct ion, noncompliance with medical care, and hip fracture to the left hip, presents to the ED via ambulance, with a report that he fell a few days ago after losing his balance and has been on the floor since then without food, water, and medication. He was found to be severely dehydrated and in A. fib with RVR #Sepsis secondary to empyema - chest tube in place with adequate drainage -Status post bronchoscopy with clearance of secretions and few mucus plugs in the left lower lobe. - fluid culture few Pseudomonas. -Continue with Zosyn for empyema -Currently on assisted ventilation ( Intensive care team will attempt to extubate patient today) -Patient had a fever of 100.0 overnight, have added Levaquin for double pseudomonal coverage # Aspiration -Patient most likely has chronic aspiration which resulted in empyema. -Failed speech evaluation therapy prior to intubation -Patient did not undergo cookie swallow due to intubation and bronchoscopy. We'll reevaluate after extubation. - however he may need PEG tube mcfp. #IV fluid retention due to infection, fluid resuscitation. - 2/2 due to third spacing of patient's fluids due to hypoalbuminemia. -Chest x-ray shows increased vascularization, with possible pleural effusion -BUN and creatinine stable, patient continues to make urine -Patient is likely third spacing prior IV fluids, IV fluids are discontinued -10 mg of IV lasix once today -We'll continue to monitor #Intubation for respiratory support s/p bronchoscopy - bronchoscopy culture showed yeastlike organism, we'll not treat this, as this is most likely colonization. We'll continue to monitor. -We'll likely attempt to extubate patient today #Diarrhea secondary to bowel regimen -Place holding parameters on Senokot #Severe Protein calorie malnutrition/FTT -BMI 13.6 kg/m2 -Ensure protein shake as nutritional supplements - nutrition consult -Tube feeding with NG tube with Jevity - will Watch for refeeding syndrome, monitor phosphorus, magnesium and potassium and replace as needed #Afib/RVR - Echo with normal EF and moderate pulmonary hypertension - follow as per cardiology - assistance appreciated -Continue IV digoxin 0.125 daily -Continue metoprolol 25 q6h -Discontinued amiodarone on 10/09/19 patient has been stable from a cardiology standpoint #Hypophosphatemia -Phosphate replacement IV -Monitor phosphate levels daily #Thrombocytopenia secondary to alcohol abuse related bone marrow suppression, severe infection -Will continue to monitor. Will transfuse platelets if necessary, currently patient does not have any bleeding episodes. - no heparin. #Abdominal ileus, secondary to hypophosphatemia, -IV phosphate replacement -Hold Senokot due to diarrhea #alcohol dependence and abuse -[facility] protocol -Ativan for agitation #Hypokalemia -Replacement ordered, will address daily. #Thrombocytopenia -2/2 alcohol use, improving, continue to monitor luate his swallow status once patient has been extubated #Hypoglycemia -Resolved #Hypothyroid - IV levothyroxine #Hypotension with adequate MAP, did not need any pressers. - Stable. -No IV fluids #fall - PT/OT when extubated #medical non-compliance - complicates care #right foot wound - optifoam daily dressing #Lactic acidosis - resolved #Jaw cancer -Status post reconstruction #DVT prophylaxis - mechanical VS,Fishbone, I+O VS, Fishbone, I+O Laboratory Tests 10/10/19 06:00 Vital Signs Date Time Temp Pulse Resp B/P (MAP) Pulse Ox O2 Delivery O2 Flow Rate FiO2 10/10/19 06:39 22 10/10/19 06:29 Ventilator 10/10/19 06:00 30 10/10/19 06:00 73 92/59 10/10/19 04:46 94 10/10/19 04:00 99.2 10/08/19 08:00 6.0 I&O- Last 24 Hours up to 6 AM 10/10/19 06:00 Intake Total 2060 ml Output Total 525 ml Balance 1535 ml Attending Note I personally saw and evaluated the patient. I agree with the findings and the plan of care documented above in the resident's note. Has sepsis from empyema from chronic aspiration. Will probably need PEG tube. LEON CARUSO DO Oct 10, 2019 08:14 JING BAHT MD Oct 11, 2019 10:17
[2019-10-10] MEDS ORDERED: SODIUM PHOSPHATE INJ 30 MMOL in D5W 500 ML IV ONE (11:00)
[2019-10-10] MEDS: LevoFLOXacin IV 750 MG in IV 1 EA IV SCH (11:01)
--- NOTE | 2019-10-10 11:59 | IPN ---
DATE: 10/10/2019 CARDIOLOGY PROGRESS NOTE SUBJECTIVE: Patient is a 59-year-old male who presented to the hospital after a fall and was found down for 2 days. Patient was found to be in atrial fibrillation with a rapid ventricular rate. At this time, patient is intubated but says he is feeling better. He is able to answer questions by shaking his head yes or no. He does not have any complaints today and says that his abdominal pain is better. PHYSICAL EXAMINATION: VITALS: Temperature 98.3, pulse 75, respiratory rate 22, blood pressure 89/51 with a mean arterial pressure of 64, pulse oximetry 95% with FiO2 of 30 on the ventilator. GENERAL: Patient is and alert male patient who is able to answer questions by shaking his head yes or no. He is currently intubated with endotracheal tube and nasogastric tube in place. Patient does not appear to be in any acute distress. HEENT: Normocephalic, atraumatic with anicteric sclerae. NECK: Supple with no evidence of jugular venous distention. CARDIOVASCULAR: Irregularly irregular rhythm with a normal rate. There was a normal S1 and S2. I did not appreciate any murmurs. LUNGS: Right lung was clear to auscultation bilaterally. Left lung had better aeration with only slight crackles in the left base. ABDOMEN: Soft and nontender to palpation. EXTREMITIES: Did show 1+ pitting edema around the ankles of the level of the mid noble. LABORATORY: White blood cell 7.4, hemoglobin 9.2, hematocrit 27.4, platelet count 73. Sodium 143, potassium 4.7, chloride 121, carbon dioxide 27, BUN 17, creatinine 0.60, glucose 98, calcium 6,8, phosphorus 1.1, magnesium 2.0. IMAGING: A chest x-ray performed earlier today and independently reviewed shows better aeration of the left lung. Endotracheal tube is in place and nasogastric tube can be seen going into the left side of the abdomen. Patient may have borderline cardiomegaly, although it is difficulty to say cause it is an AP portable chest. Chest tube is also seen in the left side of the chest. ASSESSMENT/PLAN: Patient is a 59-year-old male who presented to the hospital after being found down for greater than 40 hours after a fall who was in atrial fibrillation with a rapid ventricular response. 1. Atrial fibrillation (permanent): Patient remains in atrial fibrillation, however, his ventricular rate is controlled in the 70s and 80s. Patient remains intubated and he is on digoxin 0.125 mg and metoprolol 25 mg every 6 hours with the hold parameter of pulse less than 110. Patient has received 1 dose of metoprolol in the last 24 hours. Patient's amiodarone was discontinued yesterday. We will continue to monitor the patient's heart rate. Patient is on low-dose aspirin and low molecular weight heparin but is not on oral anticoagulation due to prior GI bleeding. 2. Abnormal EKG/right bundle branch block, conduction abnormality and axis believed related to cor pulmonale. No evidence of bradyarrhythmia or high grade AV block despite negative chronotropic therapy. Patient remains on a monitor and does not report any chest pain. 3. Cor pulmonale: This has been well documented in the past with at least a moderately to severe pulmonary hypertension documented on an echocardiogram that was performed in 2001. Patient still has elevated pulmonary artery pressures with an estimated central venous pressures (CVP) as low at this time related to anorexia. Patient has been given ample IV fluid hydration, however, does have persistent hypotension. Patient's kidney function is normal and patient has low albumin which may be most likely exacerbating his edema. 4. History of dilated cardiomyopathy believed to be alcohol mediated with at least mildly dilated left ventricle and marked impairment of global left ventricular systolic function. Despite patient's ongoing smoking and alcohol intake, his estimated left ventricular ejection fraction was within normal limits, even with a septal wall abnormality related to right ventricular pressure overload. Patient has documented mildly dilated left atrium, which is also normalized with mean left atrial pressures within normal limits. We will continue to give the patient his medications through a nasogastric tube and will change this to orally once this is removed. Prognosis remains guarded. Cardiology will follow from afar at this point [facility] SYSTEMAn[facility]
[2019-10-10] MEDS: LEVALBUTEROL 1.25 MG/0.5 ML CONCENTRATE NEB INH SCH ×4 (12:00→23:34)
[2019-10-10] MEDS: IPRATROPIUM 0.02% SOLN 0.5MG/2.5 ML NEB INH SCH ×3 (12:00→19:34)
[2019-10-10] MEDS ORDERED: IPRATROPIUM HFA INHALER 12.9 GRAMS (ATROVENT HFA) INH SCH (12:00)
[2019-10-10] MEDS ORDERED: ALTEPLASE 2 MG/2 ML VIAL (J2997 PER 1MG) XX ONE (12:00)
--- NOTE | 2019-10-10 13:54 | IPN ---
DATE OF SERVICE: 10/10/2019 Mr. Weir is now extubated and is awake and alert and talking. We are holding his by mouth feeds pending his cookie swallow. He is breathing well. Is not complaining of shortness of breath at rest. His vital signs show a maximum temperature (Tmax) of 100.6 with a heart rate that ranges between 78 and 108 in atrial fibrillation with a respiratory rate of 19-26 without the use of accessory muscles who is 90% to 99% saturation on 40% VentiMask. His blood pressure is ranging between 92/57 to 104/62. His intake and output over the past 24 hours has been recorded as 9220 in and 402 out for a positivity of 2518 mL. He has put out 175 mL from the chest tube. Urine output is recorded as 227. He has taken in 1440 mL in tube feedings. On physical examination, he has bilateral coarse rhonchi on both sides in both inspiration and expiration. The left is greater than the right, however. Percussion notes are full to the diaphragm. Cardiac examination is without murmurs, clicks, gallops, or rubs. I cannot feel his point of maximum impulse (PMI). S1, S2 are normal. Abdomen is soft and nontender. Bowel sounds are positive. He is slightly distended and tympanitic. Extremities show maybe trace pretibial edema. No calf tenderness. No differential swelling of the upper extremities. Skin is warm, dry, and perfused without cyanosis or mottling, including that of the nail beds and the knees. Neck is supple. There is no jugular venous distention, no subcutaneous emphysema. Trachea is midline. Mouth shows his mucous membranes to be pink and moist. Lips and commissures without lesions. There is no thrush. Eyes show his pupils to be equal and reactive. Extraocular motions intact. Sclerae anicteric. Neurologic shows II-XII intact along with gross motor and gross sensation intact. Gait is not tested. Psychiatric shows him to be awake and alert, oriented times three with appropriate mood and affect and conversational. His white count today is 7.4 with a hemoglobin and hematocrit of 9.2 and 27.4 and a platelet count is up to 73 from 62 yesterday. Differential shows 79% neutrophils, 9% lymphocytes, and 4% monocytes. There are no immature forms and no toxic granulations. His electrolytes show a sodium of 149 with a potassium of 4.7. BUN and creatinine are 17 and 0.6 with a glucose of 98 and a calcium of 6.8. Phosphorus is 1.1 with a magnesium of 2.0. There is no new microbiology on him today growing pseudomonas aeruginosa sensitive to everything in his pleural fluid. A yeastlike organism in his bronchioalveolar lavage. He remains on Zosyn, and levofloxacin has been added for double coverage of Pseudomonas. His chest x-ray today pre-extubation shows his lung fully expanded to the chest wall. He does have an air space in the lower hemithorax on the left secondary to probable lung entrapment. The right lower lobe infiltrate looks more dense today. Costophrenic angles are sharp, however. IMPRESSION: 1. Underlying sepsis. 2. Underlying pneumonia, right and left sides. 3. Aspiration. 4. Empyema. Growing Pseudomonas. 5. Mucus plugging with consolidation in left lung, now resolved after bronchoscopy and bronchoalveolar lavage (BAL). 6. Minimally retained fluid in the left hemithorax. 7. Small right pleural effusion. 8. Thrombocytopenia. Improving. Most likely secondary to sepsis. 9. Hypotension. improving. 10. Volume depletion, improved. 11. Prior alcohol abuse. 12. Protein-calorie malnutrition. 13. Atrial fibrillation with rapid ventricular response. 14. Hypernatremia, probable secondary to tube feeds. PLAN AND DISCUSSION: I will do tissue plasminogen activator (TPA) pleurolysis on him today to try and break up the pleural peel in the lower hemithorax. I am not sure whether that is going to be possible, but it certainly is worth a try. He will need a cookie swallow. I would suggest free water, either by mouth or per nasogastric (NG) tube or intravenous (IV) for his hypernatremia.
--- NOTE | 2019-10-10 14:27 | CCN ---
DATE: 10/09/2019 SUBJECTIVE: The patient did well overnight. He was found to have temperature of 100.6 overnight and was given Tylenol. He tolerated the vent on the current settings. His vitals remained stable. His blood pressure was consistently with a MAP above 70 overnight. This morning, he reports he is ready to be extubated and he would like to start eating. In addition this morning, we gave him a trial of pressure support which he did well on in terms of his respiratory rate and his oxygen saturation. Therefore, he was extubated and put on supplemental oxygen. He still has a nasogastric (NG) tube for feeding, but he reports he does not feel short of breath or dyspneic subjectively. Otherwise, he did have some diarrhea yesterday, which seems to be resolving. OBJECTIVE: His vitals at this time are temperature 98.3. He had a T-max overnight of 100.6. Pulse 75. Respiratory rate 22. Bp 89/51. MAP 64. Pulse oximetry 95%. He is currently on supplemental oxygen after his extubation. Generally, he is sitting up in bed. He appears calm, in no acute distress. He is speaking in full sentences. He is not using any accessory muscles of respiration. Head: Normocephalic, atraumatic. Neck is supple with no thyromegaly. No lymphadenopathy. Chest: There is even chest rise. Lungs: Clear to auscultation bilaterally with some wheezing in the right and left lower bases. On the right, wheezing and crackles are heard from the base up to the middle lobe. Otherwise clear to auscultation. Cardiovascular: Irregularly irregular with no discernible murmurs, rubs or gallops. He has a normal S1 and normal S2. His heart rate is controlled below 80. He does not have any jugular venous distention. Gastrointestinal (GI): Soft. Nontender to palpation. Positive bowel sounds. No masses. No organomegaly. Extremities: He has 2+ pitting edema up to his sacrum bilaterally. No clubbing or cyanosis appreciated otherwise. Lymphatics: He has no enlarged lymph nodes in the cervical, posterior, auricular or femoral region. Skin: He has bandages on both of his elbows and there is a large hyperkeratotic lesion on the right lateral neck. Psych: He appears somewhat anxious, but he is calm. LABS: Today, CBC demonstrates a white blood cell count of 7.4, hemoglobin 9.2, hematocrit 27.4 and a platelet count of 73 which is up from 62 yesterday. Chemistries demonstrate a sodium of 149 up from 143 yesterday, potassium 4.7, chloride 121, BUN 17 and creatinine is 0.6. His phosphorus is 1.1 today down from 1.5 yesterday. His magnesium is 2.0. This morning, his ABG at 5:18 a.m. was 7.494, 30.2 and 68.1. His pre-extubation ABG after being on pressure support for 30 minutes was 7.491, 30.7 and 67.8 with a base excess of 0.2. Of note, his BAL gram stain grew a yeast-like organism and his pleural fluid resulted with Pseudomonas aeruginosa, which is sensitive to all antibiotics. His chest x-ray that was done this morning at 6:00 a.m. was reviewed by myself and Dr. Corona, which demonstrated some infiltrates inferiorly in the right lung and possibly some fluid extending into the right middle lobe. He also has the unchanged small subpulmonic pneumothorax in the left costophrenic angles. ASSESSMENT: This is a 59-year-old man with a history of atrial fibrillation who presented after being found down at home for several days and found to have a large fluid collection in his left lung as well as possible bilateral aspiration pneumonia. He is status post chest tube placement, BAL for mucus plugging and now status post intubation, demonstrating good aeration and on double coverage for aspiration pneumonia. PLAN: 1. Cardiovascular. It seems as though the patient's heart rate has been controlled on the current regimen. Continue with cardiology's recommendations. He had initially been utilizing the support of fluids for his BP, but fluids have been stopped due to some lower extremity edema and hypernatremia. We have given him a one time dose of 10mg IV lasix today for diuresis and for low urine output. 2. Respiratory. Continue chest tube management as prescribed by Dr. Urbina of thoracic surgery. He is now extubated and on supplemental oxygen. We will get another chest x-ray in the morning to see how well he does overnight. He is on current double coverage for Pseudomonas including Levaquin and Zosyn. I have written for him to have some Xopenex nebulizers given that he is tachycardic from his atrial fibrillation and I have added ipratropium every 4 hours scheduled and given at the same time. In addition, with the supplemental oxygen, will titrate for an oxygen saturation above 90% and to also continue with aspiration precautions, especially when doing tube feeds as he is an aspiration risk, until we can have him evaluated again by speech therapy. Should he tire out after his extubation, we will consider possibly BiPAP, although it would be difficult with his anatomy from his previous jaw and neck surgeries. 3. Gastrointestinal. Continue tube feeds of Jevity with a protein supplement. Please exercise caution with aspiration with the NG tube. He will need to be evaluated by speech therapy and possibly have the modified cookie swallow in the coming days to discern whether he was aspirating. Also continue Protonix for GI protection. The patient did have 4-5 bowel movements of diarrhea yesterday so we recommend holding the current bowel regimen, which is being managed by the primary team. 4. Neurology: The patient is no longer intubated and we will keep anxiety medication in the form of Xanax IV at this time as needed, as per CIWA protocol. He will no longer need the Versed. 5. Infectious disease. Continue Zosyn and Levaquin for pneumonia with complicated parapneumonic effusion from Pseudomonas. 6. Continue with electrolyte replacement, including phosphate, as necessary. Hypernatremia and hyperchloremia likely due to the fluids that he was given. We will hold off on fluids for now and we have given him a 10 mg IV Lasix one time dose for his edema that he has on his legs up to his sacrum. Likely, the Lasix will help also with his urine output which has been low in addition to his crackles that he has in his lungs bilaterally. Will also give free water in tube feeds Continue the Clinical Tracy Withdrawal Assessment (CIWA) protocol. CODE STATUS: It was discussed with the patient prior to extubation whether he would like to reinstate his DO NOT RESUSCITATE/DO NOT INTUBATE (DNR/DNI) order which was in place prior to this intubation and BAL. He reports that he would still like to be DNR/DNI at this point in time. He fully understands that he will not be intubated again for life saving measures and that this intubation was really for the procedure. DEEP VEIN THROMBOSIS PROPHYLAXIS: We will continue his heparin for DVT prophylaxis at this time. CRITICAL CARE TIME: Estimated at 40 minutes. I, Arlen Cj, have conducted independent examination and history of the patient and agree with the plan as detailed above with these additions: Patient is a 59 yo m with hx of atrial fibrillation, head and neck cancer s/p jaw reconstruction, alcohol abuse, nicotine dependence who presented with aspiration pneumonia with empyema on left side s/p chest tube. Patient's pleural fluid was positive for pseudomonas and anaerobic organism. He was on zosyn initially with addition of levaquin for double pseudomonal coverage. Patient was also noted to have difficulty with swallowing. Had mucous plugging and collapse of left lung requiring intubation for bronchoscopy with improvement in his left lung aeration. Patient was kept intubated post procedure for additional mucous clearance. This morning patient tolerated a weaning trial and was extubated to oxygen supplementation. Would keep him NPO until speech evaluation given prior concern for aspiration. Patient was also given dose lasix 10mg IV for increased LE edema. He was continued with NGT and tube feeds with addition of protein supplements for hypoalbuminemia and free water for hypernatremia. After his extubation we discussed code status and confirmed patient would like to revert to his previous status of DNR/DNI. THOMASD
--- NOTE | 2019-10-10 17:58 | RO ---
DATE OF PROCEDURE: 10/10/2019 PREPROCEDURE DIAGNOSIS: Loculated pleural effusion with entrapped lung. POSTPROCEDURE DIAGNOSIS: Loculated pleural effusion with entrapped lung. PROCEDURE: TPA pleurolysis. SURGEON: Fer Urbina MD PIECER: ANESTHESIA: DESCRIPTION OF PROCEDURE: The patient's chest tube was clamped and disconnected and 6 mg of tPA was instilled into the chest tube in 100 mL of normal saline. Chest tube remained clamped, and the patient was turned from side to side. Chest tube will be opened in 4 hours to drain residual fluid. The patient tolerated the procedure well.
[2019-10-10 18:02] LABS: BLOOD UREA NITROGEN 15 MG/DL (7-18); CALCIUM LEVEL 7.1 MG/DL (8.5-10.1); CARBON DIOXIDE LEVEL 26 MEQ/L (21-32); CHLORIDE LEVEL 113 MEQ/L (98-107); CREATININE FOR GFR 0.57 MG/DL (0.70-1.30); GLOMERULAR FILTRATION RATE > 60.0 (>56); GLUCOSE, FASTING 104 MG/DL (70-100); PHOSPHORUS LEVEL 4.9 MG/DL (2.5-4.9); POTASSIUM SERUM 3.6 MEQ/L (3.5-5.1); SODIUM LEVEL 144 MEQ/L (136-145)
[2019-10-10] MEDS ORDERED: diphenhydrAMINE 25 MG CAP PO PRN (22:30)
[2019-10-11] VITALS (8 sets, daily range): BP systolic 104–124; BP diastolic 60–80; O2SAT 96
[2019-10-11] MEDS: METOPROLOL TART 25 MG TABLET NG SCH ×5 (00:21→23:46)
[2019-10-11] MEDS: LEVALBUTEROL 1.25 MG/0.5 ML CONCENTRATE NEB INH SCH ×6 (03:20→22:46)
[2019-10-11] MEDS: SIMETHICONE 80 MG CHEW TAB NG SCH ×4 (03:51→20:30)
[2019-10-11] MEDS: cefTAZidime 2 GM in D5W MINI-BAG PLUS 50 ML IV SCH ×3 (03:51→20:30)
[2019-10-11] MEDS: KETOROLAC 30 MG/ML VIAL (J1885) IV SCH ×3 (03:51→16:45)
[2019-10-11 05:14] LABS: BASO % 0.4 % (0.0-1.0); EOS # 0.2 10^3/uL (0.0-0.5); EOS % 2.2 % (0.0-3.0); HEMATOCRIT 29.6 % (42.0-52.0); HEMOGLOBIN 9.7 g/dl (13.5-17.5); LYMPH # 0.6 10^3/uL (1.5-5.0); LYMPH % 5.6 % (24.0-44.0); MEAN CORPUSCULAR HEMOGLOBIN 37.5 pg (27.0-33.0); MEAN CORPUSCULAR HGB CONC 32.8 g/dl (32.0-36.5); MONO # 0.3 10^3/uL (0.0-0.8); NEUTROPHILS # 9.5 10^3/uL (1.5-8.5); RED BLOOD COUNT 2.59 10^6/uL (4.30-6.10); WHITE BLOOD COUNT 10.8 10^3/uL (4.0-10.0)
[2019-10-11 05:23] LABS: MEAN CORPUSCULAR VOLUME 114.3 fl (80.0-96.0); PLATELET COUNT, AUTOMATED 99 10^3/uL (150-450)
[2019-10-11 05:37] LABS: BLOOD UREA NITROGEN 15 MG/DL (7-18); CALCIUM LEVEL 6.6 MG/DL (8.5-10.1); CARBON DIOXIDE LEVEL 26 MEQ/L (21-32); CHLORIDE LEVEL 115 MEQ/L (98-107); GLOMERULAR FILTRATION RATE > 60.0 (>56); GLUCOSE, FASTING 103 MG/DL (70-100); PHOSPHORUS LEVEL 3.7 MG/DL (2.5-4.9); POTASSIUM SERUM 3.3 MEQ/L (3.5-5.1); SODIUM LEVEL 146 MEQ/L (136-145)
[2019-10-11 05:50] LABS: DOHLE BODIES 1+
[2019-10-11 05:51] LABS: PLATELET ESTIMATE DECREASED (NORMAL)
[2019-10-11 05:59] LABS: ABG BASE EXCESS 0.2 (-2.0-2.0); ABG O2 SATURATION 91.1 % (95.0-99.0); ABG PARTIAL PRESSURE CO2 35.5 mmHg (35.0-45.0); ABG PARTIAL PRESSURE O2 58.5 mmHg (75.0-100.0); ABG STANDARD HCO3 24.6 MEQ/L (22.0-26.0); ABG pH (ARTERIAL) 7.447 UNITS (7.350-7.450)
[2019-10-11] MEDS ORDERED: POTASSIUM CHLORIDE 10% LIQ 20 MEQ/15 ML UDC PO ONE ×3 (07:00→09:15)
--- NOTE | 2019-10-11 07:23 | REP ---
Clinical: Recent intubation. Comparison: 10/10/2019. Findings: Previously noted endotracheal tube has been removed. Nasogastric tube courses below left hemidiaphragm. Stable left subclavian catheter with tip in the SVC unchanged. Stable left chest tube. Mediastinum and cardiac silhouette are stable. Diffuse bilateral pleuroparenchymal changes (right greater than left) are again noted and essentially unchanged. Impression: 1. Status post endotracheal tube removal. 2. Diffuse bilateral pleuroparenchymal changes remain essentially stable. Electronically Signed by Alexsander Marsh MD 10/11/2019 07:15 A
[2019-10-11] MEDS: IPRATROPIUM 0.02% SOLN 0.5MG/2.5 ML NEB INH SCH ×4 (07:31→19:30)
[2019-10-11] MEDS: SENOKOT S TAB PO SCH ×2 (09:00→21:00)
[2019-10-11] MEDS ORDERED: POTASSIUM CHLORIDE 10 MEQ SR TABLET PO ONE (09:00)
[2019-10-11] MEDS ORDERED: POTASSIUM PHOSPHATE INJ 30 MMOL in D5W 500 ML IV ONE (09:00)
[2019-10-11] MEDS: K-PHOS NEUTRAL 250MG TABLET (SOD.PHOSPHATE/POT.PHOSPHATE) PO SCH ×3 (09:00→20:30)
[2019-10-11] MEDS ORDERED: POTASSIUM CHLORIDE 10 MEQ SR TABLET PO SCH (09:00)
[2019-10-11] MEDS: LevoFLOXacin IV 750 MG in IV 1 EA IV SCH (09:45)
[2019-10-11] MEDS: PANTOPRAZOLE 40MG INJ (PROTONIX) (C9113) IV SCH (09:46)
[2019-10-11] MEDS: LEVOTHYROXINE 100 MCG (0.1MG) VIAL IV SCH (09:46)
[2019-10-11] MEDS: CHLORHEXIDINE GLUCONATE 0.12 % 15ML UDC (PERIDEX ORAL RINSE) MT SCH ×2 (09:47→20:30)
[2019-10-11] MEDS: DIGOXIN 0.125 MG TAB NG SCH (09:48)
--- NOTE | 2019-10-11 11:34 | IPNPDOC ---
Text Note Date of Service The patient was seen on 10/11/19. NOTE S: Interval history -Patient underwent : Plasminogen activator (TPA) pleurolysis on him yesterday. He tolerated the procedure. Continues to have good drainage from chest tube. He was also extubated yesterday. -Patient was examined at bedside this AM. Earlier in the morning he had decreased O2 saturation, after he aspirated on water. Patient continues to have a desire to eat by mouth. Despite extensive counseling for results of aspiration. He is scheduled for cookie swallow today. O: Vitals : As below. GENERAL: chronically ill-appearing gentleman, able to answer questions appropriately, able to speak in full sentences HEENT: NG tube in place, stutus post intubation. Chest: Left subclavian CVC in place Heart: S1 and S1 present, no murmurs rubs or gallops SKIN: Erythematous, non-postural work, nonvesicular, nonraised rash on bilateral thighs, extending to bilateral knees. Abd: No organomegaly, soft, bowel sounds present Ext: No edema, no cyanosis A/P: 58-year-old white male with a history of a-fib, jaw cancer s/p jaw reconstruction, noncompliance with medical care, and hip fracture to the left hip, presents to the ED via ambulance, with a report that he fell a few days ago after losing his balance and has been on the floor since then without food, water, and medication. He was found to be severely dehydrated and in A. fib with RVR #Sepsis secondary to empyema -Empyema due to probably chronic recurrent aspirations. -chest tube in place with adequate drainage, Status post TPA (10/10/19) -Status post bronchoscopy with clearance of secretions and few mucus plugs in the left lower lo be. Extubated on 10/10/19 -Zosyn was discontinued today due to drug rash -Continue levaquin -Started on ceftazidime on 10/11/19, Will de-escalate antibiotics pending. Pro- calcitonin, as per critical care team -Slight leukocytosis of 10.8. We'll continue monitoring,--No overnight fevers #Aspiration -Patient previously failed a bedside swallow evaluation, he has been scheduled for cookie swallow today. I do not believe patient will likely pass the cookie swallow due to the fact that he aspirated on the water at his bedside. Discussed with patient respectively. Treatment goals and plan moving forward. Should patient fail the swallow evaluation with the cookie study. 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 Patient stated that he will think about it and await the results of the swallow evaluation. He has previously had a PEG to place however this is more permanent solution and he will be unlikely to use by mouth intake without significant risk of aspiration. Patient verbalized understanding. Will follow-up cookie study and reevaluate patient. #Allergic drug rash, secondary to Zosyn. Zosyn was discontinued. #IV fluid retention - 2/2 due to third spacing of patient's fluids, - Will continue to monitor -IV lassix 10 mg today #Diarrhea secondary to bowel regimen -Place holding parameters on Senokot #Hypernatremia -Free water #Severe Protein calorie malnutrition/FTT -BMI 13.6 kg/m2 -Ensure protein shake as nutritional supplements - nutrition consult -Tube feeding with NG tube with Jevity - will Watch for refeeding syndrome, monitor phosphorus, magnesium and potassium and replace as needed #Difficulty sleeping -Ramelteon #Afib/RVR - Echo with normal EF and moderate pulmonary hypertension - follow as per cardiology - assistance appreciated -Continue IV digoxin 0.125 daily -Continue metoprolol 25 q6h -Discontinued amiodarone on 10/09/19 patient has been stable from a cardiology standpoint #Hypophosphatemia -Phosphate replacement IV -Monitor phosphate levels daily #Thrombocytopenia secondary to alcohol abuse related bone marrow suppression, severe infection -Will continue to monitor. Will transfuse platelets if necessary, currently patient does not have any bleeding episodes. - no heparin. #Abdominal ileus, secondary to hypophosphatemia, -IV phosphate replacement #alcohol dependence and abuse -[facility] protocol -Ativan for agitation #Hypokalemia -Replacement ordered, will address daily. #Hypoglycemia -Resolved #Elevated TSH - Most likely related to current sickness, Follow up as outpatient #Hypotension -With adequate in MAP, will continue monitoring #fall - PT/OT when extubated #medical non-compliance - complicates care #right foot wound - optifoam daily dressing #Lactic acidosis - resolved #Jaw cancer -Status post reconstruction #DVT prophylaxis - mechanical CODE Status DNI/DNR VS,Fishbone, I+O VS, Fishbone, I+O Laboratory Tests 10/10/19 17:21 10/11/19 04:52 Vital Signs Date Time Temp Pulse Resp B/P (MAP) Pulse Ox O2 Delivery O2 Flow Rate FiO2 10/11/19 07:31 96 Nasal Cannula 2.0 10/11/19 06:00 85 10/11/19 04:00 98.8 16 104/60 (75) 10/10/19 16:00 30 I&O- Last 24 Hours up to 6 AM 10/11/19 06:00 Intake Total 1790 ml Output Total 2050 ml Balance -260 ml Attending Note I personally saw and evaluated the patient. I agree with the findings and the plan of care documented above in the resident's note. I do not think patient has hypothyroidism. His TSH was only 5.3 which I think is due to sick euthyroid syndrome. will discontinue thyroxine. LEON CARUSO DO Oct 11, 2019 08:04 JING BHAT MD Oct 11, 2019 12:41
--- NOTE | 2019-10-11 12:42 | REP ---
PORTABLE CHEST: AP portable view of the chest is performed and compared to a prior exam the same day. Infiltrates on the right are stable. Left basilar infiltrate is unchanged. There is a left chest tube unchanged. No pneumothorax is seen. Nasogastric tube traverses into the stomach. Left central venous catheter is unchanged. The heart and mediastinum are unchanged. IMPRESSION: Stable exam. Electronically Signed by Papo Fischer MD 10/11/2019 12:59 P
[2019-10-11] MEDS ORDERED: VARIBAR PUDDING 40% w/v 230ML TUBE As Ordered ONE (13:02)
[2019-10-11] MEDS ORDERED: E-Z-PAQUE 96% w/w SUSP 176GM BTL As Ordered ONE (13:02)
[2019-10-11] MEDS ORDERED: BARIUM SULFATE 700 MG TABLET (E-Z-DISK) As Ordered ONE (13:02)
[2019-10-11] MEDS ORDERED: VARIBAR NECTAR 40% w/v 240ML SUSP BTL As Ordered ONE (13:02)
--- NOTE | 2019-10-11 13:36 | CCN ---
DATE: 10/11/2019 SUBJECTIVE: The patient appeared to have done well overnight. We have noticed a new rash on the lower trunk and in his pelvis that could possibly be a drug rash. He was on Zosyn for several days so this has been stopped and he had been started on Levaquin yesterday. The Zosyn has been changed to ceftazidime for that reason. Apparently the patient is very thirsty and he drank water that was by the bedside this morning and possibly aspirated. A subsequent chest x-ray was taken and did not show any new infiltrates in his lungs. He did well post extubation all through yesterday and overnight. He is currently on 2 liters of oxygen and satting well. Otherwise, he denies any pain. His urine output has been doing well after his Lasix yesterday and he is eager to start eating. OBJECTIVE: His vital signs at this time temperature 98.8, pulse is 96, respiratory rate is 16, his blood pressure is 104/60 with a MAP of 75, pulse oximetry 94% on 2 liters nasal cannula. Intake and output: He had four bowel movements yesterday. He urinated almost 1500 mL in addition to 130 mL overnight. Generally he is laying in bed. He is calm, cooperative, pleasant, in no acute distress. HEENT exam: Head normocephalic, atraumatic. NECK: Neck is supple with no thyromegaly. No lymphadenopathy. Also on his neck he has hypervascularization and a large keratotic wound on his right lateral neck, which is unchanged since his admission. CHEST: There is even chest rise. LUNGS: Clear to auscultation bilaterally with some faint wheezing in the right middle and lower lobes. Otherwise, no adventitious breath sounds could be appreciated and clear to auscultation. CARDIOVASCULAR: Irregularly irregular with no discernable murmurs, rubs or gallops. He has a normal S1 and normal S2. His heart rate is well controlled. He does not have any jugular venous distention (JVD). GASTROINTESTINAL (GI): His abdomen is soft, nontender to palpation with positive bowel sounds. No masses or organomegaly. SKIN: He has a papular rash on the lower abdomen around the umbilicus. Palpable erythematous rash around the umbilicus extending to the groin and onto the upper thigh. EXTREMITIES: He has 2+ pitting edema up to his calves. No clubbing or cyanosis appreciated otherwise. LYMPHATICS: He has no enlarged lymph nodes in the cervical, posterior auricular, or femoral region. PSYCH: He appears somewhat anxious but he is calm. He is awake, alert and oriented times three. LABORATORIES: Today his white blood cell count is 10.8, up from 7.4 yesterday. Hemoglobin is 9.7, hematocrit is 29.6, platelet count is 99 up from 73 yesterday. His chemistries demonstrate a sodium of 146, potassium of 3.3, chloride of 115, BUN 15 and a creatinine of 0.5, fasting glucose of 103 and a calcium of 6.6. His most recent blood gas was drawn this morning at 4:52 a.m. demonstrates a pH of 7.447, pCO2 of 35.5, pO2 of 58.5 and a base excess of 0.2 with a bicarb of 24. No other labs have been drawn. Chest x-ray that was done this morning at 6:00 a.m. has been reviewed by myself, demonstrates diffuse bilateral pleural parenchymal changes that are essentially stable from yesterday. ASSESSMENT: This is a 59-year-old man with a history of atrial fibrillation who presented after being found down at home for several days and found to have a large fluid collection in his left lung as well as a possible bilateral aspiration pneumonia. He is status post chest tube placement for empyema. He is also status post intubation for bronchoscopy for mucous plugging and repeat imaging demonstrating good aeration and oxygenation and on double coverage for empiric treatment of aspiration pneumonia. PLAN: 1. Cardiovascular. Heart rate has been controlled. Continue with cardiology recommendations. No need for fluid support at this time for his blood pressure as he has been maintaining a MAP above 70. We have given him a dose of Lasix which he responded to appropriately as he has become somewhat edematous in his lower extremities and his lung. There is no need to continue any further doses of Lasix today, but we may consider doing so tomorrow. 2. Respiratory. Continue chest tube management as prescribed by Dr. Urbina of thoracic surgery. He used tPA in the chest tube yesterday with good return. Continued output of the chest tube as well. It appears his loculated effusions have somewhat resolved, but he still does have some parapneumonic effusions on the right side. We will continue the double coverage for Pseudomonas. As mentioned before, we changed Zosyn as it appeared the patient had a drug allergy possibly and have replaced it with ceftazidime. We will continue the Levaquin as well. In addition, as he is post extubation, we will continue the Xopenex nebulizers with ipratropium for his pulmonary clearance of secretions as well as respiratory therapy consult and the use of the mucolytic clearance vest would probably benefit him as well. As stated before, should he tire out from his breathing, we would consider using BiPAP. At this time it does not appear that he has any respiratory compromise. 3. GI. Continue tube feeds with Jevity and protein supplement. Be cautious of aspiration from his NG tube. Have him sit up when he is eating. He will be getting a modified cookie swallow test done today to assess his swallowing. I believe this will further guide the management and possible removal of the NG tube according to the results of that test. Continue Protonix for GI protection. 4. Neurology. Acceptable to use Xanax IV as needed and per the [facility] protocol. 5. Infectious disease. As stated before, continue ceftazidime and Levaquin for aspiration pneumonia empiric treatment and complicated parapneumonic effusion from Pseudomonas. In addition, we will followup with the procalcitonin that was drawn yesterday to determine whether these antibiotics need to be de-escalated or not. 6. Electrolyte replacement as necessary. His potassium was replaced this morning. Continue to monitor his urine output which has improved over time. CODE STATUS: The patient will remain DNR, DO NOT INTUBATE for the time being per his wishes. Further discussions will need to take place regarding the results of the modified cookie swallow and whether or not the patient will need a feeding tube. At that point, we will leave it up to the primary team to determine his goals of management with the patient. Deep vein thrombosis (DVT) prophylaxis with heparin. Critical care time estimated at 30 minutes. At this point in time, we will be signing off on this case as it can be managed by the primary team. Recommendations as far as antibiotics have been made. If there are any questions we will be happy to answer them, but at this time we do not feel the need to follow this patient any further. I, Arlen Corona, have conducted and independent examination of the patient and agree with the above plan as detailed above by the resident and discussed during rounds. AYDIN
[2019-10-11] MEDS: LORazepam 2 MG/ML VIAL (J2060) IV PRN (14:30)
--- NOTE | 2019-10-11 14:41 | REP ---
Examination Requested: Cookie Swallow Reason For Exam: dysphasia The procedure was performed by CHAVO Quinteros, under the direct supervision of Dr. Howard. The procedure was performed with Katie Byrd from speech pathology present. 5 ml aliquots of honey thick consistency barium was administered. Aspiration was noted with the honey thick consistency barium. The detailed report of this examination will be provided by speech pathology. 0.4 minutes of fluoroscopy time was utilized for this procedure. Reviewed by CHAVO Bourgeois 10/11/2019 02:09 P Electronically Signed by Papo Howard MD 10/11/2019 02:33 P
--- NOTE | 2019-10-11 16:21 | IPN ---
DATE: 10/11/2019 Mr. Weir is feeling quite exhausted. He is breathing comfortably, however. He is awaiting his cookie swallow today. His vital signs show a maximum temperature (T max) of 98.6 with a heart rate that ranges between 106 and 92 and is in atrial fibrillation, a respiratory rate of 22 without the use of accessory muscles who is 91% saturated on four liters nasal cannula and whose blood pressure is ranging between 115/80 to 118/66. His intake and output over the past 24 hours has been recorded as 1430 in and 1903 out for a negativity of 473 mL. He put out 508 mL from his chest tube after his tPA pleurolysis. His weight today is 57.4 kg compared to 58.9 kg two days ago. There is no air leak. On physical examination, he has scattered rhonchi and now some rales throughout, particularly at the bases. Percussion note is full to the diaphragm. Cardiac exam is without murmurs, clicks, gallops or rubs. I cannot feel his point of maximum impulse (PMI). S1, S2 are normal. Abdomen is soft and nontender, tympanitic, however, without hepatomegaly or costovertebral angle (CVA) tenderness. Extremities show no pretibial edema. No calf tenderness. No differential swelling of the upper extremities. Skin is warm, dry and perfused without cyanosis or mottling, including that of the nail beds and the knees. Neck is supple. There is no jugular venous distention, no subcutaneous emphysema. Trachea is midline. Mouth shows his mucous membranes to be pink and moist. Lips and commissures without lesions. There is no thrush. Eyes show his pupils to be equal and reactive. Extraocular motions intact. Sclerae nonicteric. Neurologic shows II-XII intact along with gross motor and gross sensation intact. Gait is not tested. Psychiatric shows him to be awake and alert, oriented times three and conversational. His white count today is 10.8 with a hemoglobin and hematocrit of 9.7 and 29.6, improved from 9.2 and 27.4 secondary to hemoconcentration. Platelet count is up to 99 with a differential that shows 88% neutrophils, 5% lymphocytes, and 3% monocytes. There are no immature forms. No toxic granulations. Chemistries today show a sodium of 146, marginally elevated with a potassium of 3.3. BUN and creatinine are 15 and 0.5 with a glucose of 103 and a calcium of 6.6 with a phosphorus of 3.7. His chest x-ray today still shows the left lung at the costophrenic angle still entrapped even after a tPA pleurolysis. I think that the right infiltrative process is getting better. Nasogastric (NG) tube is in good place. IMPRESSION: 1. Underlying sepsis, resolving. 2. Underlying pneumonia, right and left side. 3. Aspiration. 4. Empyema, growing Pseudomonas, still being drained. 5. Mucous plugging with consolidation of the left lung, now resolved after bronchoscopy and bronchoalveolar lavage. 6. Minimally retained fluid in the left hemithorax, resolved. 7. Small right pleural effusion. 8. Thrombocytopenia, improving. 9. Hypotension, improving. 10. Volume depletion, improved and corrected. 11. Prior alcohol abuse. 12. Protein-calorie malnutrition. 13. Atrial fibrillation with rapid ventricular response. 14. Mild hypernatremia secondary to tube feeds. 15. 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 PLAN AND DISCUSSION: I will take his chest tube off suction today. He is now putting out serous fluid. The empyema is now, I'm confident is fully drained. When the drainage is less than 200, I will remove the chest tube.
[2019-10-11 17:49] LABS: MAGNESIUM LEVEL 1.9 MG/DL (1.8-2.4); POTASSIUM SERUM 4.2 MEQ/L (3.5-5.1)
[2019-10-11] MEDS: RAMELTEON 8 MG TAB (ROZEREM) PO SCH (20:30)
[2019-10-12] VITALS (12 sets, daily range): BP systolic 102–125; BP diastolic 63–79; O2SAT 89–97
[2019-10-12] MEDS: SIMETHICONE 80 MG CHEW TAB NG SCH ×4 (03:59→21:16)
[2019-10-12] MEDS: LEVALBUTEROL 1.25 MG/0.5 ML CONCENTRATE NEB INH SCH ×5 (04:00→19:28)
[2019-10-12] MEDS: MORPHINE 2 MG/ML 1ML VIAL (J2270) IV PRN ×4 (04:06→21:44)
[2019-10-12] MEDS: METOPROLOL TART 25 MG TABLET NG SCH ×3 (05:50→18:00)
[2019-10-12] MEDS: cefTAZidime 2 GM in D5W MINI-BAG PLUS 50 ML IV SCH ×3 (05:50→21:16)
[2019-10-12 06:01] LABS: ABG BASE EXCESS 2.1 (-2.0-2.0); ABG PARTIAL PRESSURE CO2 37.6 mmHg (35.0-45.0); ABG PARTIAL PRESSURE O2 60.8 mmHg (75.0-100.0); ABG STANDARD HCO3 26.2 MEQ/L (22.0-26.0); ABG TOTAL CO2 27.1 MEQ/L (22.0-29.0); ABG pH (ARTERIAL) 7.457 UNITS (7.350-7.450)
[2019-10-12 06:51] LABS: BASO # 0.1 10^3/uL (0.0-0.2); BASO % 0.5 % (0.0-1.0); EOS # 0.3 10^3/uL (0.0-0.5); EOS % 2.7 % (0.0-3.0); HEMATOCRIT 30.6 % (42.0-52.0); HEMOGLOBIN 10.1 g/dl (13.5-17.5); LYMPH # 0.8 10^3/uL (1.5-5.0); MEAN CORPUSCULAR HEMOGLOBIN 37.5 pg (27.0-33.0); MEAN CORPUSCULAR VOLUME 113.8 fl (80.0-96.0); MONO # 0.3 10^3/uL (0.0-0.8); NEUTROPHILS # 8.5 10^3/uL (1.5-8.5); NEUTROPHILS % 84.9 % (36.0-66.0); PLATELET COUNT, AUTOMATED 130 10^3/uL (150-450); RED BLOOD COUNT 2.69 10^6/uL (4.30-6.10)
[2019-10-12 07:22] LABS: ALBUMIN 1.1 GM/DL (3.2-5.2); ALT/SGPT 9 U/L (12-78); BILIRUBIN,TOTAL 0.3 MG/DL (0.2-1.0); BLOOD UREA NITROGEN 17 MG/DL (7-18); CALCIUM LEVEL 7.3 MG/DL (8.5-10.1); CARBON DIOXIDE LEVEL 27 MEQ/L (21-32); CHLORIDE LEVEL 116 MEQ/L (98-107); GLOMERULAR FILTRATION RATE > 60.0 (>56); GLUCOSE, FASTING 107 MG/DL (70-100); PHOSPHORUS LEVEL 2.5 MG/DL (2.5-4.9); POTASSIUM SERUM 4.1 MEQ/L (3.5-5.1); SODIUM LEVEL 146 MEQ/L (136-145); TOTAL PROTEIN 4.7 GM/DL (6.4-8.2)
--- NOTE | 2019-10-12 07:23 | REP ---
Portable chest, 06:54 a.m., single AP view with the patient semi upright: Comparison is 10/11/2019. The left thoracotomy tube is unchanged. The subpulmonic pneumothorax in the left costophrenic angle has significantly decreased. Diffuse infiltrate throughout the right lung has slightly improved. Cardiac size is normal. The lidya, mediastinum, skeletal structures are unremarkable. Surgical clips are again identified in the axilla bilaterally. There is a nasogastric tube terminates satisfactorily in the upper abdomen The patient is rotated. There is a left subclavian central venous catheter terminating in the superior vena cava in satisfactory position, unchanged. Impression: The subpulmonic pneumothorax in the left costophrenic angle has significantly decreased. Electronically Signed by Papo Howard MD 10/12/2019 07:14 A
[2019-10-12] MEDS: IPRATROPIUM 0.02% SOLN 0.5MG/2.5 ML NEB INH SCH ×4 (07:40→19:28)
[2019-10-12] MEDS: K-PHOS NEUTRAL 250MG TABLET (SOD.PHOSPHATE/POT.PHOSPHATE) PO SCH (08:36)
[2019-10-12] MEDS: PANTOPRAZOLE 40MG INJ (PROTONIX) (C9113) IV SCH (08:36)
[2019-10-12] MEDS: CHLORHEXIDINE GLUCONATE 0.12 % 15ML UDC (PERIDEX ORAL RINSE) MT SCH ×2 (08:36→21:15)
[2019-10-12] MEDS: DIGOXIN 0.125 MG TAB NG SCH (08:36)
[2019-10-12] MEDS: SENOKOT S TAB PO SCH ×2 (08:37→21:00)
[2019-10-12] MEDS: LevoFLOXacin IV 750 MG in IV 1 EA IV SCH (08:38)
--- NOTE | 2019-10-12 09:58 | IPNPDOC ---
Text Note Date of Service The patient was seen on 10/12/19. NOTE S: Interval history -Patient underwent : Status post Plasminogen activator (TPA) pleurolysis. Status post extubation -He failed cookie swallow yesterday, patient currently has an NG tube in place. Discussed the option for a buttermaker continuous churn solution with PEG to tube vs. comfort care. He stated that he will think about it He was afebrile over night, but at some point to As well as tachycardic. O: Vitals : As below. GENERAL: chronically ill-appearing gentleman, able to answer questions appropriately, able to speak in full sentences HEENT: NG tube in place, No thrush, No icterus Chest: Left subclavian CVC in place, rales bilaterally more on right. Crackles on the left. Heart: S1 and S1 present, no murmurs rubs or gallops SKIN: Erythematous, nonvesicular, nonraised rash on bilateral thighs. improving Abd: No organomegaly, soft, bowel sounds present Ext: trace edema around the ankles, no cyanosis A/P: 58-year-old white male with a history of a-fib, jaw cancer s/p jaw reconstruction, noncompliance with medical care, and hip fracture to the left hip, presents to the ED via ambulance, with a report that he fell a few days ago after losing his balance and has been on the floor since then without food, water, and medication. He was found to be severely dehydrated and in A. fib with RVR #Sepsis secondary to empyema 10/13 . Recurrent aspiration and bilateral aspiration pneumonia -culture growing pseudomonas and anaerobic bacteria propionibacterium and anaerobic cocci -Continue levaquin and ceftazidime Started on 10/11/19( gram-positive and anaerobic coverage) -Procalcitonin increased to 2.57 will continue current antibiotic, Repeat pro calcitonin and 3 days to evaluate for de-escalation of antibiotics -Chest tube in place without suction -No leukocytosis, remains afebrile #Mucous plugging with consolidation of the left lung, resolved with bronchoscopy and bronchoalveolar lavage -Status post bronchoscopy with clearance of secretions and few mucus plugs in the left lower lobe. Extubated on 10/10/19 #Right sided pleural efussion -resolved. #Nutrition -Tube feeding with NG tube with Jevity -Will need to discontinue NG tube. Early next week to prevent irritation, sinusitis #Aspiration -He failed cookie swallow yesterday. -Pt needs to decide between PEG tube and [employer] if oral comsumption is desired by patient -Aspiration precaution #Allergic drug rash, secondary to Zosyn. Zosyn was discontinued. # fluid retention - 2/2 due to third spacing of patient's fluids due to hypoalbuminemia - Will continue to monitor -Status post Lasix #Diarrhea secondary to bowel regimen and tube feeds. #Hypernatremia -Free water #Severe Protein calorie malnutrition/FTT -BMI 13.6 kg/m2 -Ensure protein shake as nutritional supplements - nutrition consult -Tube feeding with NG tube with Jevity - will Watch for refeeding syndrome, monitor phosphorus, magnesium and potassium and replace as needed #Difficulty sleeping -Ramelteon #Afib/RVR - Echo with normal EF and moderate pulmonary hypertension - follow as per cardiology - assistance appreciated - digoxin 0.125 daily, continue metoprolol 25 q6h - Discontinued amiodarone on 10/09/19 #Hypophosphatemia -Phosphate replaced #Thrombocytopenia secondary to alcohol abuse related bone marrow suppression, s evere infection -improved -Will continue to monitor. #Abdominal ileus, secondary to hypophosphatemia, resolved. #alcohol dependence and abuse No signs of withdrawal #Hypokalemia -Replacement ordered, will address daily. #Hypoglycemia -Resolved #Elevated TSH - Most likely related to current sickness, Follow up as outpatient #Hypotension -resolved #fall - PT/OT when extubated #medical non-compliance - complicates care #right foot wound - optifoam daily dressing #Lactic acidosis - resolved #Jaw cancer -Status post reconstruction #DVT prophylaxis - mechanical CODE Status DNI/DNR #Disposition -Palliative care consult placed, hospice consult placed, PFS consult placed . Due to his poor prognosis. He is currently DNI/DNR . If he does not accept PEG tube and continues to feed orally he should be encouraged to be in [employer] status and hospice care. VS,Fishbone, I+O VS, Fishbone, I+O Laboratory Tests 10/11/19 16:53 10/12/19 05:52 Vital Signs Date Time Temp Pulse Resp B/P (MAP) Pulse Ox O2 Delivery O2 Flow Rate FiO2 10/12/19 06:00 92 88 High Flow Cannula 10.0 10/12/19 04:16 20 10/12/19 04:00 98.6 118/79 (92) 10/10/19 16:00 30 I&O- Last 24 Hours up to 6 AM 10/12/19 06:00 Intake Total 1640 ml Output Total 770 ml Balance 870 ml Attending Note I personally saw and evaluated the patient. I agree with the findings and the plan of care documented above in the resident's note. LEON CARUSO DO Oct 12, 2019 07:39 JING BHAT MD Oct 12, 2019 17:29
[2019-10-12] MEDS: ACETAMINOPHEN 325 MG/10.15 ML UDC GT PRN (10:01)
--- NOTE | 2019-10-12 10:35 | IPN ---
DATE: 10/12/2019 Mr. Weir is feeling better today, although he still put out too much from the chest tube to remove it. He underwent a cookie swallow yesterday with a sonogram and it showed penetration into the airway. His vital signs show a maximum temperature (T max) of 98.2 with a heart rate that ranges between 85 and 92 with a respiratory rate of 18 to 22 without the use of accessory muscles who is only 88% saturated on 10 liters nasal cannula. His blood pressure is ranging between 118/79 to 125/63. His intake and output over the past 24 hours has been recorded as 1700 in and 965 out for a positivity of 735 mL. He put 475 mL out the chest tube. There is no air leak. He has taken in 1200 mL in tube feeds. Urine output has only been 290, but he has had incontinent voids. He does have a Cadena in however, so I do believe that his urine output is accurate. On physical examination, he has bilateral rales, more on the right than the left, during inspiration. Percussion notes are full to the diaphragm. Cardiac exam is without murmurs, clicks, gallops or rubs. I cannot feel his point of maximum impulse (PMI). S1, S2 are normal. His cardiac exam is rather difficult as he is cachectic. Abdomen is soft and nontender. Bowel sounds are positive. There is no hepatomegaly and no costovertebral angle (CVA) tenderness. Extremities show no pretibial edema. No calf tenderness. No differential swelling of the upper extremities. Skin is warm, dry and perfused without cyanosis or mottling, including that of the nail beds and the knees. Neck is supple. There is no jugular venous distention, no subcutaneous emphysema. Trachea is midline. Mouth shows his mucous membranes to be pink and moist. Lips and commissures without lesions. There is no thrush. Eyes show his pupils to be equal and reactive. Extraocular motions intact. Sclerae nonicteric. Neurologic shows II-XII intact along with gross motor and gross sensation intact. Gait is not tested. Psychiatric shows him to be awake and alert, oriented times three and conversational. He has expressed a desire to go home. His white count today is 10.0 with a hemoglobin and hematocrit of 10.1 and 30.6, and a platelet count of 130. Differential shows 84% neutrophils, 8% lymphocytes, and 3% monocytes. There are no immature forms. No toxic granulations. His electrolytes show sodium of 146 with a BUN and creatinine of 17 and 0.4. Glucose is 107 with a calcium of 7.3 and a corresponding albumin of 1.1. Phosphorus is 2.5. Magnesium yesterday was 1.9. He remains on Ceftazidime and levofloxacin. Microbiology is now growing additional anaerobic bacteria, Proprium bacterium, from his pleural fluid. His chest x-ray today shows improvement in the right lower lobe infiltrate, however, he now has diffuse infiltrative changes throughout the right lung. I am going to consider this a possible improvement from yesterday in that the patchy infiltrates are now gone and the appearance may be due to additional expansion of the lung. He still has the entrapped lung at the bottom of the left chest. IMPRESSION: 1. Underlying sepsis, resolving. 2. Aspiration pneumonia, right and left sides, continuing. 3. Empyema, growing Pseudomonas, and now anaerobic moiety. 4. Mucous plugging with consolidation of the left lung, resolved with bronchoscopy and bronchoalveolar lavage. 5. Right pleural effusion, resolved. 6. Thrombocytopenia, improving with platelet count up to 130. 7. Hypotension, improving. 8. Hypoxia, worse. 9. Volume depletion, improved and corrected. 10. Prior alcohol abuse. 11. Protein-calorie malnutrition. 12. Atrial fibrillation with rapid ventricular response. 13. Mild hypernatremia secondary to tube feeds. 14. 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 PLAN AND DISCUSSION: He still put out too much from the chest tube to remove it. He is growing an anaerobic bacteria from the pleural fluid which makes perfect sense if we are assuming all of this is aspiration, which we are. He does have the continued aspiration as per the cookie swallow. We are going to have resolve his by mouth status. Nursing staff tells me that he does not want to remain on tube feeds and that he would rather go home on hospice care for comfort and be able to eat. Right now, our goal is to get him over the acute process and he is amenable to that. Hopefully, I will be able to remove the chest tube in the next couple of days.
[2019-10-12] MEDS ORDERED: SODIUM PHOSPHATE INJ 30 MMOL in D5W 500 ML IV ONE (11:00)
[2019-10-12] MEDS: LORazepam 2 MG/ML VIAL (J2060) IV PRN (11:25)
[2019-10-12] MEDS: NEUTRA-PHOS 1.5 GM PACKET PO SCH ×2 (15:32→21:16)
[2019-10-12] MEDS: RAMELTEON 8 MG TAB (ROZEREM) PO SCH (21:16)
[2019-10-12] MEDS: NYSTATIN 100,000 UNITS/GM TOPICAL PWD 15 GM TOP SCH (21:17)
[2019-10-13] VITALS (24 sets, daily range): BP systolic 90–135; BP diastolic 56–75; O2SAT 87–96
[2019-10-13] MEDS: MORPHINE 2 MG/ML 1ML VIAL (J2270) IV PRN ×3 (00:21→11:04)
[2019-10-13] MEDS: LEVALBUTEROL 1.25 MG/0.5 ML CONCENTRATE NEB INH SCH ×7 (01:27→23:38)
[2019-10-13] MEDS: SIMETHICONE 80 MG CHEW TAB NG SCH ×4 (02:23→21:12)
[2019-10-13] MEDS: LORazepam 2 MG/ML VIAL (J2060) IV PRN (02:23)
[2019-10-13] MEDS: ACETAMINOPHEN 325 MG/10.15 ML UDC GT PRN ×2 (02:23→12:25)
[2019-10-13] MEDS: cefTAZidime 2 GM in D5W MINI-BAG PLUS 50 ML IV SCH ×3 (04:24→21:14)
[2019-10-13] MEDS: METOPROLOL TART 25 MG TABLET NG SCH ×5 (05:01→23:11)
[2019-10-13 05:58] LABS: BASO % 0.5 % (0.0-1.0); EOS # 0.2 10^3/uL (0.0-0.5); EOS % 2.5 % (0.0-3.0); HEMATOCRIT 26.8 % (42.0-52.0); HEMOGLOBIN 8.6 g/dl (13.5-17.5); LYMPH # 0.7 10^3/uL (1.5-5.0); LYMPH % 8.3 % (24.0-44.0); MEAN CORPUSCULAR HEMOGLOBIN 37.4 pg (27.0-33.0); MEAN CORPUSCULAR HGB CONC 32.1 g/dl (32.0-36.5); MONO # 0.3 10^3/uL (0.0-0.8); MONO % 3.5 % (0.0-5.0); NEUTROPHILS # 6.8 10^3/uL (1.5-8.5); NEUTROPHILS % 84.6 % (36.0-66.0); PLATELET COUNT, AUTOMATED 125 10^3/uL (150-450); WHITE BLOOD COUNT 8.1 10^3/uL (4.0-10.0)
[2019-10-13 05:59] LABS: MEAN CORPUSCULAR VOLUME 116.5 fl (80.0-96.0)
[2019-10-13 06:18] LABS: ALBUMIN 1.1 GM/DL (3.2-5.2); ALT/SGPT 9 U/L (12-78); BILIRUBIN,TOTAL 0.3 MG/DL (0.2-1.0); BLOOD UREA NITROGEN 14 MG/DL (7-18); CALCIUM LEVEL 7.3 MG/DL (8.5-10.1); CARBON DIOXIDE LEVEL 30 MEQ/L (21-32); CHLORIDE LEVEL 110 MEQ/L (98-107); CREATININE FOR GFR 0.36 MG/DL (0.70-1.30); GLOMERULAR FILTRATION RATE > 60.0 (>56); GLUCOSE, FASTING 129 MG/DL (70-100); PHOSPHORUS LEVEL 2.3 MG/DL (2.5-4.9); SODIUM LEVEL 143 MEQ/L (136-145); TOTAL PROTEIN 3.9 GM/DL (6.4-8.2)
[2019-10-13] MEDS: IPRATROPIUM 0.02% SOLN 0.5MG/2.5 ML NEB INH SCH ×4 (07:20→20:14)
--- NOTE | 2019-10-13 07:34 | REP ---
Portable chest, 07:15 a.m., single AP view the patient semi upright: Comparison is 10/12/2019. The left thoracotomy tube is unchanged. The subpulmonic left pneumothorax is unchanged. The diffuse infiltrate throughout the right lung appears more radiodense. Cardiac size is normal. The lidya, mediastinum, skeletal structures are unremarkable. Nasogastric tube terminates in the upper abdomen in satisfactory position. The left subclavian central venous catheter terminates in the superior vena cava in satisfactory position. The patient is rotated. Impression: No interval change. Electronically Signed by Papo Howard MD 10/13/2019 07:26 A
--- NOTE | 2019-10-13 08:43 | IPNPDOC ---
Text Note Date of Service The patient was seen on 10/13/19. NOTE S: Fifi complains of pain all over and maximum at marques site of the chest tube. He says the pain is worse than before. Frequent change of positions is helping. He would be ok in the new position for about 1 hour then would need to be changed again. No fever or chills, says breathing is same as before no worsening. Chest tube output 170 till midnight then 50 ml till this am. CXR unchanged. O: Vitals : As below. GENERAL: chronically ill-appearing gentleman, able to answer questions appropriately, able to speak in full sentences HEENT: NG tube in place, No thrush, No icterus Chest: Left subclavian CVC in place, rales and ronchi bilaterally more on right. Overall diminished breath sounds and difficult to auscultate due to intercostal muscle wasting. Use of accesory muscles seen. Heart: S1 and S1 present, no murmurs rubs or gallops SKIN: Erythematous, nonvesicular, nonraised rash on bilateral thighs. improving Abd: No organomegaly, soft, bowel sounds present Ext: trace edema around the ankles, no cyanosis A/P: 58-year-old white male with a history of a-fib, jaw cancer s/p jaw reconstruction, noncompliance with medical care, and hip fracture to the left h ip, presents to the ED via ambulance, with a report that he fell a few days ago after losing his balance and has been on the floor since then without food, water, and medication. He was found to be severely dehydrated and in A. fib with RVR #Sepsis secondary to empyema 10/13 . Recurrent aspiration and bilateral aspiration pneumonia -culture growing pseudomonas and anaerobic bacteria propionibacterium and anaerobic cocci -Continue levaquin and ceftazidime Started on 10/11/19( gram-positive and anae robic coverage) -Procalcitonin increased to 2.57 will continue current antibiotic, Repeat pro calcitonin and 3 days to evaluate for de-escalation of antibiotics -Chest tube in place without suction -No leukocytosis, remains afebrile #Mucous plugging with consolidation of the left lung, resolved with bronchoscopy and bronchoalveolar lavage -Status post bronchoscopy with clearance of secretions and few mucus plugs in the left lower lobe. Extubated on 10/10/19 #Right sided pleural efussion -resolved. #Nutrition -Tube feeding with NG tube with Jevity -Will need to discontinue NG tube. Early next week to prevent irritation, sinusitis #Aspiration -He failed cookie swallow yesterday. -Pt needs to decide between PEG tube and [employer] if oral comsumption is desired by patient -Aspiration precaution #Allergic drug rash, secondary to Zosyn. Zosyn was discontinued. # fluid retention - 2/2 due to third spacing of patient's fluids due to hypoalbuminemia - Will continue to monitor -Status post Lasix #Diarrhea secondary to bowel regimen and tube feeds. #Hypernatremia--resolved -Free water #Severe Protein calorie malnutrition/FTT -BMI 13.6 kg/m2 -Ensure protein shake as nutritional supplements - nutrition consult -Tube feeding with NG tube with Jevity - will Watch for refeeding syndrome, monitor phosphorus, magnesium and potassium and replace as needed #Difficulty sleeping -Ramelteon #Afib/RVR - Echo with normal EF and moderate pulmonary hypertension - follow as per cardiology - assistance appreciated - digoxin 0.125 daily, continue metoprolol 25 q6h - Discontinued amiodarone on 10/09/19 #Hypophosphatemia -Phosphate replaced #Thrombocytopenia secondary to alcohol abuse related bone marrow suppression, severe infection -improved -Will continue to monitor. #Abdominal ileus, secondary to hypophosphatemia, resolved. #alcohol dependence and abuse No signs of withdrawal #Hypokalemia -Replacement ordered, will address daily. #Hypoglycemia -Resolved #Elevated TSH - Most likely related to current sickness, Follow up as outpatient #Hypotension -resolved #fall - PT/OT when extubated #medical non-compliance - complicates care #right foot wound - optifoam daily dressing #Lactic acidosis - resolved #Jaw cancer -Status post reconstruction # Generalized pain will restart toradol and also start on tramadol. reduce dose of morphine. #DVT prophylaxis - mechanical CODE Status DNI/DNR #Disposition -Palliative care consult placed, hospice consult placed, PFS consult placed . Due to his poor prognosis. He is currently DNI/DNR . If he does not accept PEG tube and continues to feed orally he should be encouraged to be in [employer] status and hospice care. VS,Fishbone, I+O VS, Fishbone, I+O Laboratory Tests 10/13/19 05:36 Vital Signs Date Time Temp Pulse Resp B/P (MAP) Pulse Ox O2 Delivery O2 Flow Rate FiO2 10/13/19 07:21 90 10/13/19 05:56 94 Nasal Cannula 15.0 10/13/19 05:02 18 10/13/19 05:01 111/68 10/13/19 04:00 97.5 10/10/19 16:00 30 I&O- Last 24 Hours up to 6 AM 10/13/19 06:00 Intake Total 2165 ml Output Total 1155 ml Balance 1010 ml JING BHAT MD Oct 13, 2019 08:43
[2019-10-13] MEDS: SENOKOT S TAB PO SCH ×2 (09:00→21:00)
[2019-10-13] MEDS: LevoFLOXacin IV 750 MG in IV 1 EA IV SCH (09:23)
[2019-10-13] MEDS: NYSTATIN 100,000 UNITS/GM TOPICAL PWD 15 GM TOP SCH ×2 (09:24→21:14)
[2019-10-13] MEDS: PANTOPRAZOLE 40MG INJ (PROTONIX) (C9113) IV SCH (09:24)
[2019-10-13] MEDS: NEUTRA-PHOS 1.5 GM PACKET PO SCH ×3 (09:25→21:13)
[2019-10-13] MEDS: CHLORHEXIDINE GLUCONATE 0.12 % 15ML UDC (PERIDEX ORAL RINSE) MT SCH ×2 (09:26→21:11)
[2019-10-13] MEDS: traMADol 50 MG TAB PO SCH ×3 (09:26→21:13)
[2019-10-13] MEDS: DIGOXIN 0.125 MG TAB NG SCH (09:26)
[2019-10-13] MEDS: KETOROLAC 30 MG/ML VIAL (J1885) IV SCH ×3 (09:27→21:14)
[2019-10-13] MEDS ORDERED: FUROSEMIDE 20 MG/2 ML VIAL (J1940) IV ONE (12:00)
--- NOTE | 2019-10-13 12:21 | IPN ---
DATE: 10/13/2019 Mr. Weir seems a bit weaker today, a little bit more despondent. He is now in the progressive care unit (PCU) lying comfortably in bed however. He is tolerating his tube feeds. His vital signs show a maximum temperature (T max) of 98.0 with a heart rate that ranges between 106 and 88 in atrial fibrillation with a respiratory rate of 18 to 26 without the use of accessory muscles who is 95% saturated still on 15 liters high flow nasal cannula. His blood pressure is ranging between 106/72 to 135/75. His intake and output over the past 24 hours has been recorded as 2465 in and 895 out for a positivity of 1570 mL. That combined with his positivity yesterday of 735 mL makes him approximately 2300 mL positive over the last 48 hours. His chest tube has put out 170 mL. His weight today is recorded as 71.5 kg compared to 57.2 kg yesterday. I suspect the beds have changed and today's weight is spurious. On physical examination, he has bilateral faint crackles on both sides with some decreased breath sounds in the left lower hemithorax. Percussion note is full to the diaphragm. Cardiac exam shows a systolic ejection click heard best at the left lower sternal border on the apex. I have not heard this before. It is notable it does vary with inspiration with it diminishing during inspiration. I cannot feel his point of maximum impulse (PMI). S1, S2 are normal other than the systolic click. Abdomen is soft and nontender. Bowel sounds are positive. There is no hepatomegaly and no costovertebral angle (CVA) tenderness. Extremities show 3+ pretibial edema, which is quite a change from yesterday and the prior days. The edema is bilateral. Skin is warm, dry and perfused without cyanosis or mottling, including that of the nail beds and the knees. Neck is supple. There is no jugular venous distention, no subcutaneous emphysema. Trachea is midline. Mouth shows his mucous membranes to be pink and moist. Lips and commissures are without lesions. There is a white exudate, which I think is more mucus. The nurses are going to do some more mouth care on him and call me if the exudate does not resolve and I will treat him for thrush. He certainly has been on antibiotics and could very well have thrush. Eyes show his pupils to be equal and reactive. Extraocular motions intact. Sclerae nonicteric. Neurologic shows II-XII intact along with gross motor and gross sensation intact. Gait is not tested. Psychiatric shows him to be awake and alert, oriented times three with appropriate mood and affect and conversational. His white count is 8.1 down from 10.0 yesterday. Hemoglobin and hematocrit are 8.6 and 26.8 down from 10.1 and 39.6 yesterday. This is probably secondary to hemodilution. Platelet count is 125 and stable. Differential shows 84% neutrophils, 8% lymphocytes, and 3% monocytes. There are no immature forms. No toxic granulations. Electrolytes are essentially normal with a BUN and creatinine of 14 and 0.36 and a calcium of 7.3 with a corresponding albumin of 1.1. AST and ALT are normal. Phosphorus is 2.3. His chest x-ray today is somewhat concerning. I see a cut off sign at the left mainstem bronchus. However, the lung is expanded at the chest wall. This is done portably and there is no lateral view. He has diffuse alveolar infiltrates throughout the entire right lung and I suspect that is secondary to his excess volume. IMPRESSION: 1. Underlying sepsis, resolving. 2. Aspiration pneumonia, right and left sides, continuing. 3. Empyema, growing Pseudomonas, and an anaerobe, treated with a chest tube and improving. 4. Mucous plugging with consolidation of the left lung, resolved with a bronchoscopy and bronchoalveolar lavage, however, it may be returning. 5. Right pleural effusion, resolved. 6. Thrombocytopenia, improving. 7. Hypotension, resolved. 8. Hypoxia, continuing. 9. Volume depletion, improved and corrected. 10. Prior alcohol abuse. 11. Protein-calorie malnutrition. 12. Atrial fibrillation with rapid ventricular response, controlled. 13. Mild hypernatremia secondary to tube feeds, resolved. 14. 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 PLAN AND DISCUSSION: I will leave his chest tube in for yet another day. I want to make sure that the diminution of fluid is real. I do think that he has excess volume and I have given him some Lasix. I am concerned about his new pretibial edema and I hope that is secondary to his excess volume. He has no calf tenderness and I do not think he has a bilateral deep vein thrombosis (DVT). We will need to continue the therapy vest and aggressive lung expansion therapy.
[2019-10-13] MEDS ORDERED: PILL CUTTER 1 EACH XX PRN (16:15)
[2019-10-13] MEDS: RAMELTEON 8 MG TAB (ROZEREM) PO SCH (21:12)
[2019-10-14] VITALS (20 sets, daily range): BP systolic 94–120; BP diastolic 60–73; O2SAT 90–97
[2019-10-14] MEDS: MORPHINE 2 MG/ML 1ML VIAL (J2270) IV PRN (00:11)
[2019-10-14] MEDS: LEVALBUTEROL 1.25 MG/0.5 ML CONCENTRATE NEB INH SCH ×6 (03:51→23:38)
[2019-10-14] MEDS: SIMETHICONE 80 MG CHEW TAB NG SCH ×4 (03:57→20:18)
[2019-10-14] MEDS: KETOROLAC 30 MG/ML VIAL (J1885) IV SCH ×4 (03:58→20:23)
[2019-10-14] MEDS: cefTAZidime 2 GM in D5W MINI-BAG PLUS 50 ML IV SCH ×3 (04:01→20:22)
[2019-10-14] MEDS: METOPROLOL TART 25 MG TABLET NG SCH ×3 (05:05→16:54)
[2019-10-14 05:44] LABS: BASO # 0.1 10^3/uL (0.0-0.2); BASO % 0.7 % (0.0-1.0); EOS # 0.3 10^3/uL (0.0-0.5); EOS % 3.6 % (0.0-3.0); HEMATOCRIT 25.6 % (42.0-52.0); HEMOGLOBIN 8.5 g/dl (13.5-17.5); LYMPH # 0.8 10^3/uL (1.5-5.0); LYMPH % 10.4 % (24.0-44.0); MEAN CORPUSCULAR HEMOGLOBIN 37.8 pg (27.0-33.0); MEAN CORPUSCULAR HGB CONC 33.2 g/dl (32.0-36.5); MEAN CORPUSCULAR VOLUME 113.8 fl (80.0-96.0); MONO # 0.4 10^3/uL (0.0-0.8); MONO % 4.7 % (0.0-5.0); NEUTROPHILS # 5.9 10^3/uL (1.5-8.5); NEUTROPHILS % 80.2 % (36.0-66.0); PLATELET COUNT, AUTOMATED 139 10^3/uL (150-450); RED BLOOD COUNT 2.25 10^6/uL (4.30-6.10); WHITE BLOOD COUNT 7.4 10^3/uL (4.0-10.0)
[2019-10-14 06:10] LABS: ALT/SGPT 7 U/L (12-78); BILIRUBIN,TOTAL 0.3 MG/DL (0.2-1.0); BLOOD UREA NITROGEN 15 MG/DL (7-18); CALCIUM LEVEL 7.4 MG/DL (8.5-10.1); CARBON DIOXIDE LEVEL 33 MEQ/L (21-32); CHLORIDE LEVEL 105 MEQ/L (98-107); CREATININE FOR GFR 0.33 MG/DL (0.70-1.30); GLOMERULAR FILTRATION RATE > 60.0 (>56); GLUCOSE, FASTING 104 MG/DL (70-100); PHOSPHORUS LEVEL 2.6 MG/DL (2.5-4.9); POTASSIUM SERUM 4.2 MEQ/L (3.5-5.1); SODIUM LEVEL 140 MEQ/L (136-145); TOTAL PROTEIN 3.8 GM/DL (6.4-8.2)
[2019-10-14] MEDS: IPRATROPIUM 0.02% SOLN 0.5MG/2.5 ML NEB INH SCH ×4 (07:10→20:28)
--- NOTE | 2019-10-14 07:47 | REP ---
Portable chest, 07:23 a.m., single AP view with the patient upright: Comparison is 10/13/2019. The left thoracotomy tube is unchanged. The small left subpulmonic pneumothorax is unchanged. There is now complete opacification of the left hemithorax. The aerated lung identified in the left hemithorax on the comparison study is no longer identified. There is a diffuse infiltrate throughout the entire right lung, unchanged. [facility] there are old fractures of the right sixth and seventh ribs, unchanged from 02/09/2009. The left subclavian central venous catheter and nasogastric tube remain in satisfactory positions, unchanged. Impression: The diffuse density throughout the entire left hemithorax has increased. The left hemithorax is now completely opacified. There is no longer any visible aerated lung in the left hemithorax. The small left subpulmonic pneumothorax is unchanged. Electronically Signed by Papo Howard MD 10/14/2019 07:38 A
[2019-10-14] MEDS: SENOKOT S TAB PO SCH ×2 (09:00→20:20)
[2019-10-14] MEDS: PANTOPRAZOLE 40MG INJ (PROTONIX) (C9113) IV SCH (09:20)
[2019-10-14] MEDS: DIGOXIN 0.125 MG TAB NG SCH (09:21)
[2019-10-14] MEDS: NEUTRA-PHOS 1.5 GM PACKET PO SCH ×3 (09:22→20:18)
[2019-10-14] MEDS: traMADol 50 MG TAB PO SCH ×3 (09:22→20:21)
[2019-10-14] MEDS: NYSTATIN 100,000 UNITS/GM TOPICAL PWD 15 GM TOP SCH ×2 (09:23→20:23)
[2019-10-14] MEDS: CHLORHEXIDINE GLUCONATE 0.12 % 15ML UDC (PERIDEX ORAL RINSE) MT SCH ×2 (09:53→20:17)
[2019-10-14] MEDS: LevoFLOXacin IV 750 MG in IV 1 EA IV SCH (09:53)
--- NOTE | 2019-10-14 10:30 | IPNPDOC ---
Text Note Date of Service The patient was seen on 10/14/19. NOTE S: Patient was examined this morning. Initially patient patient stated that he decided to make [employer], however changes mind when approached [facility] Form. . He stated that he would like to talk to hospice, to consider placement at home. We'll continue current regiment and treatment plan as outlined below. O: Vitals : As below. GENERAL: chronically ill-appearing gentleman, no significant apparent distress HEENT: NG tube in place, Chest: Left subclavian CVC in place, rales and ronchi bilaterally more on right. Chest muscle wasting Heart: S1 and S1 present, Abd: No organomegaly, soft, bowel sounds present Ext: trace edema around the ankles, no cyanosis A/P: 58-year-old white male with a history of a-fib, jaw cancer s/p jaw reconstruction, noncompliance with medical care, and hip fracture to the left hip, presents to the ED via ambulance, with a report that he fell a few days ago after losing his balance and has been on the floor since then without food, water, and medication. He was found to be severely dehydrated and in A. fib with RVR #Poor prognosis -Multiple discussions have had with patient about goals and treatment Irritation. He has contemplated hospice versus palliative care. Hospice home health care was placed. Patient has made multiple requests to be made [employer], and then has rescinded his decision. Multiple small has not been updated. He is currently DNI, DNR. He desires to speak with hospice today. Prior to making final decision. #Sepsis secondary to empyema 2/ . Recurrent aspiration and bilateral aspiration pneumonia -culture growing pseudomonas and anaerobic bacteria propionibacterium and anaerobic cocci -Continue levaquin and ceftazidime Started on 10/11/19( gram-positive and anaerobic coverage) -Procalcitonin increased to 2.57 will continue current antibiotic, Repeat pro calcitonin in 3 days to evaluate for de-escalation of antibiotics -Chest tube in place without suction. Chest tube will likely be discontinued this afternoon -No leukocytosis, remains afebrile #Mucous plugging with consolidation of the left lung, -Status post bronchoscopy and bronchoalveolar lavage -Status post extubation on 10/10/19 -Will most likely require an additional bronchoscopy if patient desires aggressive treatment. #Right sided pleural efussion -resolved. #Nutrition -Tube feeding with NG tube with Jevity -Will need to discontinue NG tube. Early next week to prevent irritation, sinusitis #Aspiration -He failed cookie swallow -Pt needs to decide between PEG tube and [employer] if oral comsumption is desired by patient -Aspiration precaution #Allergic drug rash, secondary to Zosyn. Zosyn was discontinued. # fluid retention - 2/2 due to third spacing of patient's fluids due to hypoalbuminemia - Will continue to monitor -Currently euvolemic #Diarrhea secondary to bowel regimen and tube feeds. #Hypernatremia--resolved -Free water #Severe Protein calorie malnutrition/FTT -BMI 13.6 kg/m2 -Ensure protein shake as nutritional supplements - nutrition consult -Tube feeding with NG tube with Jevity - will Watch for refeeding syndrome, monitor phosphorus, magnesium and potassium and replace as needed #Difficulty sleeping -Ramelteon #Afib/RVR - Echo with normal EF and moderate pulmonary hypertension - follow as per cardiology - assistance appreciated - digoxin 0.125 daily, continue metoprolol 25 q6h - Discontinued amiodarone on 10/09/19 #Hypophosphatemia -Phosphate replaced #Thrombocytopenia secondary to alcohol abuse related bone marrow suppression, severe infection -improved -Will continue to monitor. #Abdominal ileus, secondary to hypophosphatemia, resolved. #alcohol dependence and abuse No signs of withdrawal #Hypokalemia -Replacement ordered, will address daily. #Hypoglycemia -Resolved #Elevated TSH - Most likely related to current sickness, Follow up as outpatient #Hypotension -resolved #fall - PT/OT when extubated #medical non-compliance - complicates care #right foot wound - optifoam daily dressing #Lactic acidosis - resolved #Jaw cancer -Status post reconstruction # Generalized pain will restart toradol and also start on tramadol. reduce dose of morphine. #DVT prophylaxis - mechanical CODE Status DNI/DNR #Disposition -Palliative care consult placed, hospice consult placed, PFS consult placed . Due to his poor prognosis. He is currently DNI/DNR . If he does not accept PEG tube and continues to feed orally he should be encouraged to be in [employer] status and hospice care. VS,Fishbone, I+O VS, Fishbone, I+O Laboratory Tests 10/14/19 05:28 Vital Signs Date Time Temp Pulse Resp B/P (MAP) Pulse Ox O2 Delivery O2 Flow Rate FiO2 10/14/19 09:22 22 10/14/19 09:21 83 10/14/19 08:00 97.5 102/69 (80) 98 High Flow Cannula 10.0 10/10/19 16:00 30 I&O- Last 24 Hours up to 6 AM 10/14/19 06:00 Intake Total 2040 ml Output Total 1480 ml Balance 560 ml Attending Note I personally saw and evaluated the patient. I agree with the findings and the plan of care documented above in the resident's note. LEON CARUSO DO Oct 14, 2019 09:45 JING BHAT MD Oct 20, 2019 18:36
--- NOTE | 2019-10-14 13:29 | REP ---
Portable chest chest, 01:13 p.m., single AP view with the patient sitting: Comparison is from 07:23 a.m. earlier today. The left thoracotomy tube has been removed. Complete opacification of the left hemithorax is unchanged. Diffuse infiltrate throughout the entire right lung is unchanged. The nasogastric tube and left subclavian central venous catheters remain in satisfactory positions, unchanged. Impression: There has been interval removal of a left thoracotomy tube. There is no other interval change. Electronically Signed by Papo Howard MD 10/14/2019 01:19 P
[2019-10-14] MEDS: SODIUM CHLORIDE HYPERTONIC 3% 15ML NEB SOL INH SCH ×4 (14:08→23:37)
--- NOTE | 2019-10-14 14:16 | IPN ---
DATE: 10/14/2019 Mr. Weir has now completely mucus plugged his lung. He was on his way yesterday with bronchial cut off on chest x-ray and today he is completely opacified. He is putting out minimally out of the chest tube and I will remove the chest tube. He needs intensive lung expansion therapy, and I am going to transfer him back to the intensive care unit (ICU) to obtain that. He has expressed an interest in hospice, but hospice does not preclude advanced respiratory therapy and lung expansion. His vital sings show a maximum temperature (t-max) of 98.0 with a heart rate that ranges between 83 and 90 in atrial fibrillation with a blood pressure that is ranging between 90/58 to 104/56. He is still only 91% saturated on 15 liters nasal cannula, and his respiratory rate is ranging between 18 and 22 with the use of his neck accessory muscles. His intake and output the past 24 hours has been recorded as 2040 in and 1765 out for a positivity of 275 mL. He has taken in 1440 mL in nasogastric tube feeds. He has put out 115 mL out of the chest tube and there is no air leak. Weight today is pending. PHYSICAL EXAMINATION: LUNGS: His lungs show bronchophony throughout the entire left lung. He is dull to percussion throughout the entire left lung. He also shows complete E-to-A egophony. The right lung shows coarse rhonchi throughout in both inspiration and expiration. Percussion note is full to the diaphragm on the right. CARDIAC EXAM: Without murmurs, clicks, gallops or rubs. I cannot feel his point of maximum impulse (PMI). S1, S2 are normal. ABDOMEN: Soft, nontender. Bowel sounds positive. There is no hepatomegaly. No costovertebral angle tenderness. EXTREMITIES: Show 1+ pretibial edema. No calf tenderness. No differential swelling of the upper extremities. SKIN: Warm, dry and perfused without cyanosis or mottling, including that of the nail beds and knees. NECK: Supple. There is no jugular venous distention. No subcutaneous emphysema. Trachea is midline. MOUTH: Shows his mucous membranes to be pink and moist. Lips and commissures without lesions. There is no thrush. EYES: Show his pupils to be equal and reactive. Extraocular motion intact. Sclerae anicteric. NEUROLOGIC: Shows II through XII intact with gross motor and gross sensation intact. Gait is not tested. PSYCHIATRIC: Shows him to be awake and alert, oriented times three, unable to hold a conversation. LABORATORY DATA: His white count today is 7.4 with a hemoglobin and hematocrit of 8.5 and 25.6, which continues to decrease. Platelet count is 139. His differential shows 80% neutrophils, 10% lymphocytes, 4% monocytes. There are no immature forms and no toxic granulations. Electrolytes are normal except for a marginally high total CO2 of 33. BUN and creatinine are 15 and 0.33. Glucose is 104 with a calcium of 7.4 and corresponding albumin of 1.1. AST and ALT are normal. His chest x-ray is described above. The left lung is completely opacified. There is a mediastinal shift to the left with volume loss. IMPRESSION: 1. Underlying sepsis, resolved. 2. Aspiration pneumonia right and left side, continuing. 3. Empyema growing Pseudomonas and anaerobe, treated with chest tube and resolved. 4. Mucus plugging with consolidation of the left lung, recurrent. 5. Right pleural effusion, resolved. 6. Thrombocytopenia, improving. 7. Hypotension, intermittent. 8. Hypoxia, continuing. 9. Volume depletion, improved when correcting. 10. Prior alcohol abuse. 11. Protein calorie malnutrition. 12. Atrial fibrillation with rapid ventricular response, controlled. 13. Mild hypernatremia secondary to tube feeds, resolved. 14. Entrapped lower lobe at the costophrenic angle. PLAN/DISCUSSION: The patient needs intense lung expansion therapy. We were hoping that with the institution of full tube feeds that he would start to gain his strength, but that is going to take at least a couple of weeks. I will transfer him back to the intensive care unit (ICU) for chest PT and therapy vest therapy. I will start hypotonic saline nebulizers to get him to cough. This is still a potentially reversible problem. He needs intense nursing care in order to get him up out of bed to a chair, sitting upright and breathing.
[2019-10-14] MEDS ORDERED: FUROSEMIDE 20 MG/2 ML VIAL (J1940) IV ONE ×2 (15:15→21:00)
--- NOTE | 2019-10-14 18:30 | IPN ---
DATE: 10/14/2019 SUBJECTIVE: The intensive care unit (ICU) team was called to the bedside of Mr. Weir at the instruction of Dr. Urbina, who felt that the patient needed to be transferred to the ICU for aggressive chest PT. Respiratory therapy saw the patient initially and putting him sitting in a chair by the bedside and applied the percussion vest, which he did for about 5 minutes and then refused further therapy with that vest. In our discussion with the patient, he had seen hospice earlier today who mentioned that he was "not stable enough to go to hospice in terms of his oxygen requirement," (15 liters), and his nasogastric tube, which is not normally managed by hospice. In addition, hospice felt that the patient would possibly need a pleur-X catheter placed, although he does not have any significant pleural effusion. In our discussion with the patient, his ultimate goal was to go home with possible hospice services but he was told that he is not stable for this. He does not wish to go comfort measures only at this time but does not want to be intubated in the case of increasing oxygen requirement. The patient does also complain of a sore in his nose, which makes it difficult for his oxygen nasal cannula to be inserted into his nose. In addition he was considering in-patient hospice if he is unable to return home. Right now, he reports that he is having trouble breathing, he looks uncomfortable, he is using accessory muscles of respiration and he has uneven chest rise. The patient does not want to sit at the bedside chair and he was asking about NGT removal. OBJECTIVE: VITAL SIGNS: Temperature 97.7, pulse 90, respiratory rate of 22, blood pressure is 94/64 with a MAP of 74, pulse oximetry is 94% on 15 liters high flow nasal cannula. GENERAL: The patient looks uncomfortable. He is using accessory muscles of respiration. He is calm and he is cooperative. HEENT: He has moist mucous membranes. He does have a dark red, dried blood in both nares. He has pupils that are equally round and reactive to light. Extraocular movements are intact. NECK: Thickened skin with discoloration, with no thyromegaly or lymphadenopathy. LUNGS: He has decreased breath sounds in the left lower middle and upper lobe. He has complete E-to-A egophony and dull to percussion in the left lung. Right lung has some crackles and rhonchi in the lower and middle lobes. CARDIAC: He is irregularly irregular but with no murmurs, rubs or gallops. S1, S2 normal. ABDOMEN: Soft, nontender with positive bowel sounds. There is no hepatomegaly. No splenomegaly and no other masses. EXTREMITIES: 2+ pretibial edema. No calf tenderness. There is no swelling in the upper extremities. SKIN: Previous rash, thought to be drug rash, has improved on his lower abdomen and his upper thighs. Demarcated rash has shown improvement. Skin is warm, dry and well perfused. PSYCHIATRIC: Mood and affect appropriate. NEUROLOGIC: Cranial nerves II through XII are intact with no obvious focal deficits. LYMPHATICS: He has no enlarged lymph nodes in the cervical, posterior auricular, or femoral regions. LABORATORY DATA: Complete blood count (CBC) today demonstrates a white blood cell count of 7.4, hemoglobin 8.5, hematocrit of 25.6 and platelet count of 139. His chemistry shows a sodium of 140, potassium 4.2, carbon dioxide 33, BUN 15, creatinine 0.33, fasting glucose of 104. His most recent albumin was found to be 1.0, down from 2.0 when he was first admitted. He did have two chest x-rays drawn this morning, one at 7:32 a.m., which was reviewed by myself and Dr. Corona, which demonstrates diffuse density throughout the entire left hemithorax that is increased. The left hemithorax is now completely opacified. There is no longer any visible aerated lung in the left hemithorax. There is a small left subpulmonic pneumothorax, which is unchanged. In addition, another chest x-ray that was done at 1317 hours today, which was reviewed by me, demonstrates complete opacification of the left hemithorax that is unchanged, diffuse infiltrates throughout the entire right lung is unchanged, the nasogastric tube and the left subclavian central venous catheters remain in satisfactory positions. The overall impression demonstrates that there has been interval removal of the left thoracotomy tube. ASSESSMENT: This is a 59-year-old man with a history of atrial fibrillation, who presented after being found down at home for several days and found to have a large fluid collection in his left lung, which has since been drained and chest tube has been removed. He also has bilateral aspiration pneumonia from aspiration of his secretions. He is status post, as mentioned before, chest tube placement, as well as bronchoscopy for mucus plugging and now demonstrates complete collapse of left lung from more mucus plugging and/or worsening aspiration pneumonia. PLAN: 1. Cardiovascular. Heart rate is currently controlled. He is still in atrial fibrillation. Blood pressures have been acceptable with a MAP above 70. We have given him another dose of Lasix given that he now has 2+ pretibial edema demonstrating fluid overload. He has a positive fluid balance, which is likely due to the IV medications and tube feeds. Nevertheless, we will continue with two more doses of Lasix today to try to get some of the fluid off. 2. Respiratory. Chest tube has been pulled by Dr. Urbina. We will continue aggressive chest PT as allowed by the patient. At this point in time, he refuses the percussion vest as it is uncomfortable for him, but we will continue with chest PT. We will repeat a procalcitonin in the efforts to discern whether this is a new pneumonia or just worsened aspiration pneumonia from his secretions. Of note, the patient does have uncomfortable sores in his bilateral nares, which maybe affecting his oxygen requirement need at this time. It is difficult for him to have the nasal cannula in his nose and therefore this may be affecting his treatment. As far as treatments, he will continue ceftazidime for his pneumonia and his levofloxacin for his pneumonia. He will be continued on Xopenex nebulizer treatment for further pulmonary clearance. 3. Gastrointestinal. The patient continues to have tube feeds with Jevity and protein supplement, although his albumin is 1.0 today. For the time being, we will continue tube feeds with aspiration precautions, although the patient ultimately wishes to eat by mouth, which is something that can be handled by hospice. He is a high risk for aspiration. 4. Neurology. Continue Xanax and Clinical [place] Withdrawal Assessment (CIWA) protocol. 5. Infectious disease. As stated before, continue ceftazidime and Levaquin for aspiration pneumonia empiric treatment and complicated parapneumonic effusion from pseudomonas. We will followup with his procalcitonin level tomorrow to determine whether we can deescalate these antibiotics. 6. Electrolyte replacement as necessary. CODE STATUS: At this point in time, the patient is still DO NOT RESUSCITATE, DO NOT INTUBATE. He understands the risks that are involved with increasing oxygen requirement and whether he will need to be intubated for his pulmonary mucus plugging. He does not wish to have a higher level of care, although he does wish to go home on hospice. To my knowledge, the patient refuses to go comfort measures only, but will accept treatment at the hospice house only. I believe hospice will reevaluate him tomorrow morning to determine whether he is stable enough to go home with hospice or to the hospice house. Deep vein thrombosis (DVT) prophylaxis with heparin. Critical care time estimated at 30 minutes. I, Arlen Corona, have conducted an independent examination of the patient and agree with the above plan as detailed and discussed during rounds. MTDD
[2019-10-14] MEDS: RAMELTEON 8 MG TAB (ROZEREM) PO SCH (21:00)
[2019-10-15] VITALS (25 sets, daily range): BP systolic 94–124; BP diastolic 58–76; O2SAT 95
[2019-10-15] MEDS: SIMETHICONE 80 MG CHEW TAB NG SCH ×4 (03:54→20:15)
[2019-10-15] MEDS: KETOROLAC 30 MG/ML VIAL (J1885) IV SCH ×4 (03:55→20:13)
[2019-10-15] MEDS: SODIUM CHLORIDE HYPERTONIC 3% 15ML NEB SOL INH SCH ×5 (04:27→20:49)
[2019-10-15] MEDS: LEVALBUTEROL 1.25 MG/0.5 ML CONCENTRATE NEB INH SCH ×5 (04:27→20:49)
[2019-10-15 04:35] LABS: BASO # 0.1 10^3/uL (0.0-0.2); BASO % 0.7 % (0.0-1.0); EOS # 0.2 10^3/uL (0.0-0.5); EOS % 2.7 % (0.0-3.0); HEMATOCRIT 27.3 % (42.0-52.0); LYMPH # 0.9 10^3/uL (1.5-5.0); MEAN CORPUSCULAR HEMOGLOBIN 37.8 pg (27.0-33.0); MONO # 0.5 10^3/uL (0.0-0.8); MONO % 6.1 % (0.0-5.0); NEUTROPHILS # 6.4 10^3/uL (1.5-8.5); NEUTROPHILS % 78.9 % (36.0-66.0); PLATELET COUNT, AUTOMATED 143 10^3/uL (150-450); RED BLOOD COUNT 2.38 10^6/uL (4.30-6.10); WHITE BLOOD COUNT 8.2 10^3/uL (4.0-10.0)
[2019-10-15 04:43] LABS: MEAN CORPUSCULAR VOLUME 114.7 fl (80.0-96.0)
[2019-10-15 04:58] LABS: PLATELET ESTIMATE NORMAL (NORMAL); POLYCHROMASIA 1+
[2019-10-15 05:10] LABS: ALT/SGPT 7 U/L (12-78); BILIRUBIN,TOTAL 0.3 MG/DL (0.2-1.0); BLOOD UREA NITROGEN 18 MG/DL (7-18); CALCIUM LEVEL 7.3 MG/DL (8.5-10.1); CARBON DIOXIDE LEVEL 34 MEQ/L (21-32); CHLORIDE LEVEL 104 MEQ/L (98-107); CREATININE FOR GFR 0.37 MG/DL (0.70-1.30); GLOMERULAR FILTRATION RATE > 60.0 (>56); GLUCOSE, FASTING 106 MG/DL (70-100); PHOSPHORUS LEVEL 3.6 MG/DL (2.5-4.9); POTASSIUM SERUM 4.2 MEQ/L (3.5-5.1); SODIUM LEVEL 143 MEQ/L (136-145); TOTAL PROTEIN 4.2 GM/DL (6.4-8.2)
[2019-10-15] MEDS: cefTAZidime 2 GM in D5W MINI-BAG PLUS 50 ML IV SCH ×2 (05:54→12:37)
[2019-10-15] MEDS: METOPROLOL TART 25 MG TABLET NG SCH ×5 (05:54→23:56)
[2019-10-15] MEDS: IPRATROPIUM 0.02% SOLN 0.5MG/2.5 ML NEB INH SCH ×4 (07:21→20:49)
--- NOTE | 2019-10-15 07:40 | REP ---
Portable chest, 07:14 a.m., single AP view with the the patient upright: Comparison is 10/14/2019. There is complete opacification of the left hemithorax. This is unchanged. There is a diffuse infiltrate throughout the right lung. Within this diffuse infiltrate. There is a focal area of increased density superolaterally as an interval change. The nasogastric tube and left subclavian central venous catheter remain in satisfactory positions, unchanged. Impression: No interval change except for a focal zone of increasing density within the right lung infiltrate. Electronically Signed by Papo Howard MD 10/15/2019 07:31 A
[2019-10-15] MEDS: PANTOPRAZOLE 40MG INJ (PROTONIX) (C9113) IV SCH (08:30)
[2019-10-15] MEDS: NYSTATIN 100,000 UNITS/GM TOPICAL PWD 15 GM TOP SCH ×2 (08:32→20:15)
[2019-10-15] MEDS: CHLORHEXIDINE GLUCONATE 0.12 % 15ML UDC (PERIDEX ORAL RINSE) MT SCH ×2 (08:33→20:13)
[2019-10-15] MEDS: DIGOXIN 0.125 MG TAB NG SCH (08:34)
[2019-10-15] MEDS: traMADol 50 MG TAB PO SCH ×3 (08:35→20:15)
[2019-10-15] MEDS: SENOKOT S TAB PO SCH ×2 (08:50→20:14)
[2019-10-15] MEDS: NEUTRA-PHOS 1.5 GM PACKET PO SCH ×3 (08:50→20:14)
[2019-10-15] MEDS: LevoFLOXacin IV 750 MG in IV 1 EA IV SCH (10:40)
--- NOTE | 2019-10-15 11:39 | IPNPDOC ---
Text Note Date of Service The patient was seen on 10/15/19. NOTE S: Interval Hx: Patient was chest for to the ICU yesterday, for intensive lung expansion therapy. Patient refused therapy after 5 minutes. Prior to the transfer to ICU. Patient had decided to commit to hospitalist evaluation and to be made ALTERNATIVE ENERGY TECHNICIAN. He was evaluated by hospice, who stated the patient cannot go to hospice on 15 L of oxygen. THIS AM: Patient was examined at bedside. Again, his goal of treatment was discussed with patient. He has waned back and forth with decision for comfort care versus ALTERNATIVE ENERGY TECHNICIAN versus aggressive therapy. This morning, again we discussed with patient his options for treatment goals and desired lifestyle. Patient states that he does not want a PEG tube placed, however he is unrelated to be made comfort care only. He denied any pain. Patient has requested 24 hours think about his current decisions before committing to hospice versus comfort care versus aggressive therapy. He understands that his prognosis is guarded and aggressive care would not be in his best interest. O: Vitals : As below. GENERAL: chronically ill-appearing gentleman, in no apparent discomfort, nasogastric tube in place, HEENT: NG tube in place, dry mucous membrane, Chest: Left subclavian CVC in place, rales and ronchi bilaterally more on right. Chest muscle wasting Heart: no murmurs, rubs or gallops, S1 and S2 present LUNGS: Diminished air entry bilaterally, weak respiratory effort A/P: 58-year-old white male with a history of a-fib, jaw cancer s/p jaw reconstruction, noncompliance with medical care, and hip fracture to the left hip, presents to the ED via ambulance, with a report that he fell a few days ago after losing his balance and has been on the floor since then without food, water, and medication. He was found to be severely dehydrated and in A. fib with RVR #Poor prognosis -Multiple discussions have had with patient about goals and treatment, he has requested 24 hours to consider his options. Hospice will reevaluate him tomorrow. We will maintain his oxygen requirement less than 10 as hospice requires. #Sepsis secondary to empyema 2/ . Recurrent aspiration and bilateral aspiration pneumonia -culture growing pseudomonas and anaerobic bacteria propionibacterium and anaerobic cocci -Continue levaquin and ceftazidime Started on 10/11/19( gram-positive and anaerobic coverage) --No leukocytosis, remains afebrile -Status point chest tube #Mucous plugging with consolidation of the left lung, -Status post bronchoscopy and bronchoalveolar lavage -Status post extubation on 10/10/19 -Will most likely require an additional bronchoscopy if patient desires aggressive treatment. #Nutrition -Tube feeding with NG tube with Jevity -Will need to discontinue NG tube. #Aspiration -He failed cookie swallow -Pt needs to decide between PEG tube and ALTERNATIVE ENERGY TECHNICIAN if oral comsumption is desired by patient -Aspiration precaution #Allergic drug rash, secondary to Zosyn. Zosyn was discontinued. #Diarrhea secondary to bowel regimen and tube feeds. -Resolved #Hypernatremia --resolved #Severe Protein calorie malnutrition/FTT -BMI 13.6 kg/m2 -Ensure protein shake as nutritional supplements - nutrition consult -Tube feeding with NG tube with Jevity - will Watch for refeeding syndrome, monitor phosphorus, magnesium and potassium and replace as needed #Difficulty sleeping -Ramelteon #Afib/RVR - Echo with normal EF and moderate pulmonary hypertension - follow as per cardiology - assistance appreciated - digoxin 0.125 daily, continue metoprolol 25 q6h - Discontinued amiodarone on 10/09/19 #Hypophosphatemia -Resolved #Thrombocytopenia secondary to alcohol abuse related bone marrow suppression, severe infection -improved -Will continue to monitor. #Abdominal ileus, secondary to hypophosphatemia, resolved. #alcohol dependence and abuse No signs of withdrawal #Hypokalemia -Replacement ordered, will address daily. #Hypoglycemia -Resolved #Elevated TSH - Most likely related to current sickness, Follow up as outpatient #Hypotension -resolved #fall - PT/OT when extubated #medical non-compliance - complicates care #right foot wound - optifoam daily dressing #Lactic acidosis - resolved #Jaw cancer -Status post reconstruction # Generalized pain will restart toradol and also start on tramadol. reduce dose of morphine. #DVT prophylaxis - mechanical CODE Status DNI/DNR #Disposition -Palliative care consult placed, hospice consult placed, PFS consult placed . Due to his poor prognosis. He is currently DNI/DNR . VS,Fishbone, I+O VS, Fishbone, I+O Laboratory Tests 10/15/19 04:22 Vital Signs Date Time Temp Pulse Resp B/P (MAP) Pulse Ox O2 Delivery O2 Flow Rate FiO2 10/15/19 11:00 89 22 124/75 (91) 95 10/15/19 09:00 15.0 10/15/19 08:35 High Flow Cannula 10/15/19 08:00 99.5 10/10/19 16:00 30 I&O- Last 24 Hours up to 6 AM 10/15/19 05:59 Intake Total 2560 ml Output Total 1070 ml Balance 1490 ml GME ATTESTATION GME ATTESTATION My faculty preceptor for this patient encounter was physically present during the encounter and was fully available. All aspects of the patient interview, examination, medical decision making process, and medical care plan development were reviewed and approved by the faculty preceptor. The faculty preceptor is aware and concurs with the plan as stated in the body of this note and will attest to such by his/her cosignature. ATTENDING NOTE I examined and discussed the plan for Mr. Weir with Dr. Ghotra and I agree with his assessment and plan. Briefly, Mr. Weir is a 59 yo gentleman with a history of a head and neck CA s/p XRT c/b dysphagia who was admitted with an empyema s/p chest tube placement and drainage that was removed 2 with cultures having grown pseudomonas and propionibacterium propionicum on double pseudomonas coverage with ceftaz/levaquin per pulm with CT surgery now signed off after chest tube removal who remains hospitalized in the ICU with significant hypoxemia requiring 15L HFNC with course c/b aspiration and mucus plugging with LLL collapse, now with ongoing GOC discussions. Most recent issue is the lack of safe nutrition options, for which he currently has an NGT on tube feeds and after discussion about a PEG with pulmonology this morning, the decision was made to not pursue it as it would require intubation for placement and he did not desire to be intubated and Dr. Corona cautioned that he may have difficulty with extubation given his diminished pulmonary reserve. At this time, the conversation is culminating to likely discharge home tomorrow with home hospice on 10L of oxygen with the understanding that if he is hypoxemic on 10L he would be discharged home with permissive hypoxemia on the 10L O2 per hospice regulations for comfort measures. [facility] is aware of this plan and is looking into hospice perspective on this tentative plan. LEON CARUSO DO Oct 15, 2019 11:39 SELINA PERRY MD Oct 15, 2019 15:43
--- NOTE | 2019-10-15 12:20 | IPN ---
DATE: 10/15/2019 Mr. Weir has been bedridden in regard to his treatments. However, the nursing staff has done a great job in motivating him and he has again consented to use the therapy vest. He is contemplating taking the nasogastric (NG) out but wants to wait until tomorrow. He is really quite on the fence with regard to his care. He does not want comfort care, and hospice saw him yesterday and did not think that he was good enough for hospice with regard to his oxygen requirements. His vital signs show a temperature of 99.9 with a heart rate that ranges between 103-93, in atrial fibrillation, with a respiratory rate of 22-29 with the use of some neck accessory muscles. He is 97% saturated on 15 liters nasal cannula and his blood pressure is ranging from between 104/59-99/60. His intake and output for the past 24 hours has been recorded as 2130 in and 970 out for a positivity of 1160 mL. His chest tube has been removed yesterday. His weight today is 71.1 kg compared to 71.5 kg on 10/13/2019. He has taken 1440 mL in tube feeds by his NG tube. On physical exam, he has complete E-to-A egophony on the left side with bronchophony. He has decreased breath sounds on the left side. Right side shows rhonchi in both expiration and inspiration. Percussion note is full to the diaphragm on the right side. Cardiac exam is without murmurs, clicks, gallops or rubs. I cannot feel his point of maximum impulse (PMI). S1 and S2 are normal. His auscultation is difficult because of cachexia. Abdomen is soft, nontender. Bowel sounds are positive. There is no hepatomegaly. No costovertebral angle (CVA) tenderness. Extremities show 2+ pretibial edema. No calf tenderness. No differential swelling of the upper extremities. Skin is warm and dry and perfused, without cyanosis or mottling including that of the nail beds and knees. Neck is supple. There is no jugular venous distention. No subcutaneous emphysema. Trachea is midline. Mouth shows the mucous membranes to be pink and moist. Lips and commissures are without lesions. There is no thrush. Eyes show his pupils to be equal and reactive. Extraocular motion intact. Sclerae nonicteric. Neurologic shows II-XII intact along with gross motor and gross sensation intact. Gait is not tested. Psychiatric shows him to be awake and alert, oriented times three with appropriate mood and affect and conversational. His white count today is 8.2 with hemoglobin and hematocrit of 9.0 and 27.3 and a platelet count of 143. Differential shows 78% neutrophils, 11% lymphocytes, 6% monocytes. There are no immature forms. No toxic granulations. His chemistries today show an increasing total CO2 of 34. BUN and creatinine are 18 and 0.37. Calcium is 7.3 with a albumin of 1.0. His chest x-ray today, again done portably, shows his left side completely opacified. Right side has a diffuse alveolar infiltrative patten in all lobes. The costophrenic angle is sharp on the right. I cannot see any on the left. He has a bronchial cut-off sign. IMPRESSION: 1. Aspiration pneumonia right and left side, continuing. 2. Empyema, left side, resolved with drainage growing Pseudomonas and anaerobe. 3. Mucus plugging with consolidation of left lung, recurrent and continuing. 4. Right pleural effusion, resolved. 5. Thrombocytopenia, resolved. 6. Hypotension, intermittent. 7. Hypoxia, continuing. 8. Prior alcohol abuse. 9. Protein calorie malnutrition. 10. Atrial fibrillation with rapid ventricular response. 11. Mild hypernatremia secondary to tube feeds, resolved. 12. Entrapped lower lobe at costophrenic angle. 13. Underlying sepsis. PLAN AND DISCUSSION: Short of intubating him temporarily and removing mucus plugs with bronchoscopy are only alternative is lung expansion therapy. I started him on hypotonic saline nebs yesterday to increase his cough. Nursing reports that he really does not have much of a cough and does not generate much force. Notably, he has been up out of bed today sitting in a chair. He also is able to elevate himself and sit up in his bed without help. He obviously has enough muscle strength to move about. He does have cachexia and underlying protein calorie malnutrition for which we are trying to replenish with tube feeds. He has chronic aspiration, and although he desperately wants to eat he aspirates. I am very concerned that if this lung consolidation goes on much longer he is going to develop another pneumonia. He is already starting to elevate his temperature into the 99.9 range. He has never amounted a great white count probably secondary to chronic immunodeficiency secondary to his radiation and chemotherapy for his head and neck cancer.
--- NOTE | 2019-10-15 14:30 | IPN ---
DATE: 10/15/2019 The patient is seen and examined at the bedside this morning. He reports that he has minimal improvement to his shortness of breath this morning. He did the percussion vest for about 10 minutes, after which, he requested to be back in bed. He did well overnight, although he is still requiring the same amount of oxygen. We had a lengthy conversation with him regarding his goals of care. The patient does not wish to go comfort measures at this time. We explained to him that if he would like to have his NG removed, which is what he has been requesting, he will need to have a feeding tube in the form of a percutaneous gastrostomy tube (PEG) or G tube, in which case, he would need to be intubated for that procedure to take place. He does not like the idea of being intubated. He reported that he would like to think some more about his wishes and would get back to us by tomorrow. For the time being, he will keep the NG tube in and will decide tomorrow if he will have it removed or not. In regards to his end of life care, hospice saw him yesterday and determined that his oxygen requirement was too much for hospice to handle as well as the NG tube would not be able to be managed in the outpatient setting. Therefore, he is aware of these things and he is going to talk to his family today to make a decision about the next steps. OBJECTIVE: Vitals: Temperature is 99.5, heart rate 88, respiratory rate 22, blood pressure 102/64, pulse oximetry 95% on 15 liters high flow nasal cannula. For his ins and outs, he had 2 bowel movements yesterday. He has a net positive balance of about a little over a liter. He is making good urine at this time. PHYSICAL EXAMINATION: Generally, the patient looks comfortable laying in bed. He is not using accessory muscles as of this morning. He does not have even chest rise, but he is calm and cooperative. HEENT: He has moist mucous membranes. He does have dark red dried blood in both nares. His pupils are equally round and reactive to light. His extraocular movements are intact. His head is normocephalic and atraumatic. His neck has skin thickening and chronic hyperpigmentation with no thyromegaly or lymphadenopathy. Lungs: He has decreased breath sounds all through the left lower and upper lobe right. He is found to have some scattered rhonchi and some crackles in the right middle and lower. Cardiac Exam: He is irregularly irregular with no murmurs, rubs or gallops. Normal S1 and normal S2. Abdomen is soft and nontender with positive bowel sounds. There is no hepatomegaly. No splenomegaly. No other masses. Extremities: He does have 2+ pitting edema pretibially with no calf tenderness. There is no swelling in his upper extremities. Skin: Previous rash thought to be a drug rash has improved in his lower abdomen and his upper thighs. He still has the large hyperkeratotic lesion on his right lateral neck which is unchanged in size or quality during this entire hospitalization. Psychiatric: His mood and affect are appropriate. Neurologic: Cranial nerves II-XII are intact no obvious focal deficits. Lymphatics: He has no enlarged lymph nodes in the cervical, posterior auricular, or femoral regions. LABS: Today, his CBC demonstrates a white blood cell count of 8.2, hemoglobin 9.0, hematocrit 27.3 and platelet count of 143. His chemistries demonstrate a sodium of 143, potassium 4.2, carbon dioxide 34, BUN 18, and creatinine of 0.37. Calcium is 7.3. His albumin at this point is 1.0 and his total protein is 4.2. A procalcitonin has been ordered and is pending. Otherwise, he did have a chest x-ray done this morning at 6:00 a.m. which demonstrates complete opacification of the left hemithorax that is unchanged. There is also a diffuse infiltrate throughout the right lung. Within the diffuse infiltrate there is a focal area of increased density superolaterally as an interval change. The NG tube in the left subclavian central venous catheter remains in satisfactory position unchanged. Overall the impression was no interval change except for focal zone of increased density within the right lung infiltrate. ASSESSMENT: This is a 59-year-old man with a history of atrial fibrillation who presented after being found down at home for several days and found to have a large fluid collection in his left lung which has since been drained and chest tube has been removed. He also has bilateral aspiration pneumonia from his dysphagia and chronic aspiration of his secretions. He is status post bronchoscopy for mucus plugging and is now demonstrating complete collapse of the left lung from more mucus plugging and his worsening aspiration PLAN: 1. Cardiovascular. Heart rate is currently controlled. Still in atrial fibrillation. Blood pressures have been acceptable with a MAP above 70. He does still have pretibial edema and was given additional lasix with improvement in urine output but continues to be net positive. Suspect he has third spacing still from hypoalbuminemia. 2. Respiratory. Chest tube has been pulled by Dr. Urbina. We will continue aggressive chest PT as the patient agrees into the form of the vest and chest PT percussion from respiratory therapy. He has also been prescribed inhaled nebulized saline and we have instructed nursing to keep the patient on his right side down in order for the secretions to be cleared. Otherwise, the patient does not want any other more invasive procedures at this time. Continue Levaquin and Ceftazidime for his pseudomonal pneumonia and the Xopenex treatments for nebulizer treatments with hypertonic saline. 3. GI. As stated above, we had a long discussion with the patient regarding his poor nutrition status and the fact that the tube feeds were not helping with his low albumin. The patient is aware of the process that is required for insertion of a G tube or a PEG tube, which includes him having to be intubated and with the high risk of not being able to be extubated at the end of this procedure. He is aware of this risk and he will take some time over the next day to decide what his plan will be. 4. Neurology. Continue Xanax and CIWA protocol. 5. Infectious disease. Continue Ceftazidime and Levaquin for aspiration pneumonia empiric treatment for his complicated parapneumonic effusion from Pseudomonas. We will followup with the procalcitonin level once this results and will deescalate antibiotics as necessary. 6. Electrolyte replacement as necessary. CODE STATUS: At this point in time, the patient is still DO NOT RESUSCITATE (DNR)/DO NOT INTUBATE (DNI). He does not wish to go comfort measures only ([employer]) at this point in time. He would likely benefit from being reevaluated by hospice once he decides whether he wants to his NG tube out. He has been advised that he would be a difficult surgical risk for a possible feeding tube placement and he is aware of all the risks and benefits of each option presented to him. CRITICAL CARE TIME: Estimated at 45 minutes. IArlen, have conducted independent examination of the patient and agree with the plan as detailed above and discussed during rounds with the addition: Extensive discussion with the patient this morning about his goals of care. Patient was interested in ultimately going home with hospice services however as he still has NGT in place and is on high requirments for his oxygenation he was not a candidate for home hospice. We discussed removing the NGT and possible PEG which he had previously had with his jaw surgery. He would be agreeable to PEG tube placement nursing home however given his respiratory status he would likely require intubation for the procedure and he is adamant about not being intubated or mechanically ventilated again and so does not want the PEG at this time. He is therefore considering whether or not he will continue with NGT or possibly removing and starting comfort feeds. Patient does not want to be comfort measures only at this time but is considering in-patient hospice, however he would like to discuss with his family and friends further. Patient understands that he is having continued aspiration from his oral secretions as he has been kept NPO and developed the recurrent left lung atelectasis. He is willing to continue with aggressive chest PT to help with pulmonary toilet as well as hypertonic saline nebs. Patient's pseudomonal pneumonia has improved with antibiotic treatment. His repeat procalcitonin has trended down and so discontinued his ceftazidime but will continue with levaquin. Will continue with mouth care with chlorhexadine. [facility]
[2019-10-15] MEDS: RAMELTEON 8 MG TAB (ROZEREM) PO SCH (20:14)
[2019-10-16] VITALS (16 sets, daily range): BP systolic 83–109; BP diastolic 53–68; O2SAT 94–98
[2019-10-16] MEDS: ACETAMINOPHEN 325 MG/10.15 ML UDC GT PRN
[2019-10-16] MEDS: LEVALBUTEROL 1.25 MG/0.5 ML CONCENTRATE NEB INH SCH ×7 (00:07→23:33)
[2019-10-16] MEDS: SODIUM CHLORIDE HYPERTONIC 3% 15ML NEB SOL INH SCH ×7 (00:08→23:33)
[2019-10-16] MEDS: SIMETHICONE 80 MG CHEW TAB NG SCH ×4 (02:06→20:48)
[2019-10-16] MEDS: KETOROLAC 30 MG/ML VIAL (J1885) IV SCH ×4 (02:06→20:49)
[2019-10-16 04:40] LABS: BASO # 0.1 10^3/uL (0.0-0.2); BASO % 0.7 % (0.0-1.0); EOS # 0.3 10^3/uL (0.0-0.5); EOS % 3.7 % (0.0-3.0); HEMATOCRIT 24.5 % (42.0-52.0); HEMOGLOBIN 7.9 g/dl (13.5-17.5); LYMPH # 0.9 10^3/uL (1.5-5.0); LYMPH % 11.4 % (24.0-44.0); MEAN CORPUSCULAR HEMOGLOBIN 37.4 pg (27.0-33.0); MEAN CORPUSCULAR HGB CONC 32.2 g/dl (32.0-36.5); MONO # 0.7 10^3/uL (0.0-0.8); MONO % 9.3 % (0.0-5.0); NEUTROPHILS # 5.6 10^3/uL (1.5-8.5); NEUTROPHILS % 74.4 % (36.0-66.0); PLATELET COUNT, AUTOMATED 136 10^3/uL (150-450); RED BLOOD COUNT 2.11 10^6/uL (4.30-6.10); WHITE BLOOD COUNT 7.6 10^3/uL (4.0-10.0)
[2019-10-16 04:41] LABS: MEAN CORPUSCULAR VOLUME 116.1 fl (80.0-96.0)
[2019-10-16 04:49] LABS: PLATELET ESTIMATE NORMAL (NORMAL); POLYCHROMASIA 1+
[2019-10-16 04:51] LABS: ANISOCYTOSIS 1+
[2019-10-16 04:53] LABS: STOMATOCYTES 1+
[2019-10-16 05:07] LABS: ALT/SGPT 7 U/L (12-78); BILIRUBIN,TOTAL 0.2 MG/DL (0.2-1.0); BLOOD UREA NITROGEN 19 MG/DL (7-18); CALCIUM LEVEL 7.4 MG/DL (8.5-10.1); CARBON DIOXIDE LEVEL 35 MEQ/L (21-32); CHLORIDE LEVEL 103 MEQ/L (98-107); GLOMERULAR FILTRATION RATE > 60.0 (>56); GLUCOSE, FASTING 103 MG/DL (70-100); POTASSIUM SERUM 4.2 MEQ/L (3.5-5.1); SODIUM LEVEL 142 MEQ/L (136-145); TOTAL PROTEIN 3.8 GM/DL (6.4-8.2)
[2019-10-16] MEDS: METOPROLOL TART 25 MG TABLET NG SCH ×3 (06:00→17:37)
--- NOTE | 2019-10-16 07:30 | REP ---
Portable chest , 06:57 a.m., single AP view the patient semi upright: Comparison is 10/15/2019. There is complete opacification of the left hemithorax, unchanged. There is a large infiltrate throughout the entire right lung, unchanged. The nasogastric tube and left subclavian central venous catheter are unchanged. Impression: There is no interval change. Electronically Signed by Papo Howard MD 10/16/2019 07:21 A
[2019-10-16] MEDS: PANTOPRAZOLE 40MG INJ (PROTONIX) (C9113) IV SCH (08:11)
[2019-10-16] MEDS: SENOKOT S TAB PO SCH ×2 (08:13→20:48)
[2019-10-16] MEDS: traMADol 50 MG TAB PO SCH ×3 (08:14→20:47)
[2019-10-16] MEDS: NEUTRA-PHOS 1.5 GM PACKET PO SCH ×3 (08:15→20:47)
[2019-10-16] MEDS: NYSTATIN 100,000 UNITS/GM TOPICAL PWD 15 GM TOP SCH ×2 (08:16→20:48)
[2019-10-16] MEDS: DIGOXIN 0.125 MG TAB NG SCH (08:19)
[2019-10-16] MEDS: IPRATROPIUM 0.02% SOLN 0.5MG/2.5 ML NEB INH SCH ×4 (08:26→20:01)
[2019-10-16] MEDS ORDERED: metOLazone 2.5 MG TAB PO ONE (08:45)
[2019-10-16] MEDS: LevoFLOXacin IV 750 MG in IV 1 EA IV SCH (09:54)
[2019-10-16] MEDS: CHLORHEXIDINE GLUCONATE 0.12 % 15ML UDC (PERIDEX ORAL RINSE) MT SCH ×2 (09:54→20:48)
--- NOTE | 2019-10-16 09:54 | IPN ---
DATE: 10/16/2019 Nursing tells me today that yesterday he dangled and got out of bed and in fact had a cough and produced some significant sputum. His x-ray however has not changed. Yesterday, evidently the vibrating therapy vest machine was not working and the other vest machine which was just across the orr was not brought in and utilized for him. We probably lost a little bit of ground there. The nasogastric (NG) has been taken out, but it has been replaced with a smaller kangaroo tube. I have spoken with Dr. Cornoa and we are going to try to NT suction him. His vital signs show a T-max of 99.3, with a heart rate that ranges between 81 and 86 in atrial fibrillation, with a respiratory rate of 26 to 30, with the use of some neck accessory muscles and who is 96% saturated now on 10 liters nasal cannula with a blood pressure that is ranging between 94/55 to 100/62. His intake and output for the past 24 hours has been recorded as 2885 in and 345 out for a positivity of 2500 mL. He weighs 69.5 kg compared to 71.1 kg yesterday. He has had 4 incontinent voids. On physical exam, he still has full E-to-A egophony on the left side and complete dullness on the left side. The right side shows inspiratory rales and rhonchi. Percussion note is full to the diaphragm on the right. Cardiac exam is without murmurs, clicks, gallops or rubs. I cannot feel his point of maximum impulse (PMI). S1 and S2 are normal. Abdomen is soft, nontender. A little firm, but bowel sounds are positive. There is no hepatomegaly. No costovertebral angle (CVA) tenderness. Extremities show 3+ pretibial edema. No calf tenderness. No differential swelling of the upper extremities. Skin is warm and dry and perfused, without cyanosis or mottling including that of the nail beds and knees. Neck is supple. There is no jugular venous distention. No subcutaneous emphysema. Trachea is midline. Mouth shows his mucous membranes to be pink and moist. Lips and commissures are without lesions. There is no thrush. Eyes show his pupils to be equal and reactive. Extraocular movement intact. Sclerae nonicteric. Neurologic shows II-XII intact along with gross motor and gross sensation intact. Gait is not tested. Psychiatric shows him to be awake and alert, oriented times three with appropriate mood and affect and conversational. His white count today is 7.6 with hemoglobin and hematocrit of 7.9 and 24.5, no doubt secondary to hemodilution. Platelet count is 136. His differential shows 74% neutrophils, 11% lymphocytes, 9% monocytes. There are no immature forms and no toxic granulations. Electrolytes are normal except for an elevated total CO2 of 35, consistent with his consolidated left lung. BUN is 19 with a creatinine of 0.3. Glucose is 103. Calcium is 7.4. His albumin continues low at 1.0. AST and ALT are normal. His chest x-ray is described above. It is still showing complete opacification of the left lung. His right lung shows alveolar infiltrates throughout. IMPRESSION: 1. Aspiration pneumonia right and left side, continuing. 2. Empyema, left side, resolved with drainage that grew Pseudomonas and an anaerobe. 3. Mucus plugging and consolidation of the left lung, recurrent and continuing. 4. Right pleural effusion, resolved. 5. Thrombocytopenia, resolved. 6. Hypotension, intermittent. 7. Hypoxia, continuing. 8. Prior alcohol abuse. 9. Protein calorie malnutrition. 10. Atrial fibrillation with rapid ventricular response. 11. Hypernatremia secondary to tube feeds, resolved. 12. Entrapped lower lobe at costophrenic angle. 13. Underlying sepsis, resolved. 14. Hypoalbuminemia. PLAN AND DISCUSSION: We still have the persistent mechanical problem with mucus plugging. He does not want to be intubated. We are going to try and NT suction him. He does need diuresis. He is hypoalbuminemic, even in the face of continuing tube feeds. He took in 2120 mL in tube feedings yesterday. The hypoalbuminemia is going to take a much longer time to correct. I will order a prealbumin to see if that gives us more of a better picture of his nutritional status. Nonetheless, albumin is a reactive phase contributor and will go down just in the face of inflammation and sepsis.
[2019-10-16] MEDS: MORPHINE 2 MG/ML 1ML VIAL (J2270) IV PRN (09:55)
[2019-10-16] MEDS ORDERED: BUMETANIDE 1 MG TAB PO ONE (10:00)
--- NOTE | 2019-10-16 10:02 | REP ---
Portable chest, and 40 a.m., single AP view with the patient sitting: Comparison is from 06:57 a.m. earlier today. There is complete opacification of the left hemithorax. This is unchanged. There is a large infiltrate throughout the entire right lung, unchanged. The left subclavian central venous catheter is in satisfactory position, unchanged. The distal tip of the nasogastric tube is excluded at the inferior film margin but appears to be in the abdomen. There are surgical clips in both right and left axilla, unchanged. Impression: There is no interval change from study earlier today. Electronically Signed by Papo Howard MD 10/16/2019 09:54 A
--- NOTE | 2019-10-16 11:11 | IPN ---
DATE: 10/16/2019 SUBJECTIVE: Mr. Weir was seen and examined at the bedside this morning. He had just had his nasogastric tube pulled by nursing, as it was decided to switch out nasogastric tube this morning for a smaller one and to do some suctioning. The patient seems to be doing much better mentally this morning. We did not have a conversation about comfort measures, as the patient wished to have his nasogastric tube replaced. He is aware that if he decides to get a PEG tube he will likely need to be intubated for the procedure. Overnight, nursing reported that he had lower urine output, which had yet to be addressed this morning. In addition, he was unable to have chest PT in evening as the machine was broken. Therefore, it will be restarted this morning. He had already done 10 minutes of it this morning and stated that he tolerated it well. He is still having a poor cough reflex and still having trouble bringing up his secretions at this time. Otherwise, he has no other complaints this morning and no other questions. His father is in the room visiting him. OBJECTIVE: VITAL SIGNS: Temperature 99.0, pulse 87, respiratory rate 26, blood pressure 94/55 with a MAP of 68, pulse oximetry is 96% on 10 liters high flow nasal cannula. Input and output in the past 24 hours: Intake total was about 2.8 liters, output was only 345 mL, net positive balance of 2.5 liters. He did have four bowel movements, two this morning. His current weight is 69.5 kg. PHYSICAL EXAMINATION: GENERAL: The patient is sitting up in bed. He is calm, cooperative. He does not appear in any acute distress. He is pleasant. He is speaking in full sentences. HEENT: Head: Normocephalic, atraumatic. Moist mucous membranes. Extraocular movements are intact. Pupils are equal, round and reactive to light. NECK: Supple with no thyromegaly and no lymphadenopathy. CHEST: There is even chest rise. PULMONARY: He does have decreased breath sounds all throughout the left lung and some scattered rhonchi in the right lower and middle lobes. He has no other adventitious breath sounds appreciated. CARDIOVASCULAR: Irregularly irregular with controlled rate. No murmurs, rubs or gallops. ABDOMEN: Soft and nontender to palpation with positive bowel sounds. No masses or organomegaly. EXTREMITIES: Lower extremities have 2+ pitting edema up to the knees bilaterally. SKIN: He has no new rashes or ulcers. What was thought to be a drug rash is improving on his abdomen and upper thighs. LYMPHATICS: He has no enlarged lymph nodes in the postauricular or cervical chain, nor does he have it in the femoral region. PSYCHIATRIC: He has normal mood and normal affect. He is awake, alert, and oriented times three. LABORATORY DATA: Today: CBC demonstrates white blood cell count of 7.6, hemoglobin has come down to 7.9 from 9.0 yesterday, hematocrit is 24.5, MCV is 116.1, platelet count is 136 from 143 yesterday. Chemistries demonstrate a sodium of 142, potassium 4.2, chloride 103. BUN 19, creatinine 0.3. In addition, his total protein is 3.8, albumin 1.0, procalcitonin was found to be 0.57 and his phosphorous was 3.3. He did have a chest x-ray done this morning at 6:00 a.m., which was reviewed by myself and demonstrates consistent complete opacification of the left hemithorax, unchanged. There is a large infiltrate throughout the entire right lung, unchanged, and the nasogastric tube and left subclavian central venous catheter were unchanged. In addition, he did have a chest x-ray done after the insertion of the new nasogastric tube, which confirmed placement of that tube and no other interval changes. ASSESSMENT: This is a 59-year-old male with a history of atrial fibrillation who presented after being found down at home for several days and found to have a left empyema 2/2 pseudomonas and anaerobic PNA, which has since been drained with a chest tube which has been removed. He also has suspected bilateral aspiration pneumonia from his dysphagia and chronic aspiration of his secretions. He is status post bronchoscopy for mucus plugging and is now demonstrating recurrent collapse of the left lung from more mucus plugging and worsening aspiration pneumonia. He continues to have a poor cough reflex and hypoalbuminemia, likely secondary to ongoing malnourishment and poor oral intake as an outpatient. PLAN: 1. Cardiovascular: Heart rate is currently controlled, still in atrial fibrillation. Blood pressures have been acceptable with a MAP above 70. Technically, the patient does meet the sepsis screen with his occasional SBP less than 100 and tachypnea; however, his MAP has been above 65 and he is on antibiotics still. He has been given lasix for his edema and positive fluid balance and does have response with increased urine output but continues to be significantly net positive. therefore will given him zaroxolyn prior to bumex and also administer albumin to help with his third spacing and improve diuresis. Patient has s left subclavian line which was placed when he required vasopressors. Patient has been off vasopressors for many days, will DC central line when he has peripheral venous access. 2. Respiratory: Status post chest tube for his empyema, has been removed. Patient has recurrent atelectasis in left lung, had previously had intubation and bronchoscopy and was kept NPO but re-aspirated oral secretions with recurrent left lung atelectasis. patient has weak cough and difficulty expectorating mucous Will continue with aggressive PT, as the patient agrees with chest percussion and hypertonic saline and xopenex nebulizers. Will also continue with positioning patient left lung up for mucous clearance. We did do NT suctioning this morning and got some mucous out from his nose and from his mouth and was able to induce a weak cough. Patient is on high flow NC, have been able to wean him down from 15L/min to 10L/min but suspect he does have component of pulmonary edema and with continued diuresis will be able to continue to wean down his FiO2 3. Gastrointestinal: We exchanged his nasogastric tube for a Kangaroo tube this morning, as the larger NG tube was possibly affecting his cough reflex and not helping him with clearing his secretions. We will continue the tube feeds at the same prescription as before with Jevity 1.5 and with protein supplementation at this time with the new NG tube. Further discussions will need to take place regarding long-term care of the NG tube and whether he will need to be discharged home with it or he will need to have a PEG tube. We will have another discussion with him at a later time. 4. Neurology: Continue Xanax as needed. 5. Infectious disease: Pseudomonal and anaerobic aspiration pneumonia with left sided empyema s/p chest tube. Patient was on broad spectrum antitiobitcs with improvement in his procalcitonin. Ceftazidime has been stopped and will cont Levaquin for now. 6. Hypoalbuminemia: He will be transfused albumin and he has been consented for blood products today. 7. Electrolyte replacement as necessary. CODE STATUS: At this point in time, the patient continues as DO NOT RESUSCITATE/DO NOT INTUBATE. Critical care time is estimated at 35 minutes. IArlen have conducted an independent examination of the patient and agree with the plan as detailed above. MTDD
--- NOTE | 2019-10-16 12:37 | IPNPDOC ---
Text Note Date of Service The patient was seen on 10/16/19. NOTE Interval Hx: He continues to be in the ICU, for intensive lung expansion therapy. Per Vascular surgery he has consented to therapy vest. This am patient stated that he does not want HOSPICE care. He is very adament about pursuing aggressive care dispite his poor prognosis. THIS AM: This morning patient was examined at bedside. He was very adamant about pursuing aggressive care despite poor prognosis. He denies any pain. His NG tube was changed to a small acute that provided him with more comfort. O: Vitals : As below. VITALS: See Below GENERAL APPEARANCE: Alert no acute distress. Chronically ill-appearing, cachectic, SKIN: Groin rash has significantly improved, ENT:Dry oral mucous membrane, nasal cannula in place, currently on 10 liters of air LUNGS: Dullness to percussion. Bilateral upper and lower lungs, diminished breaths on patient's entire right side, symmetric chest movement, HEART: Normal S1, S2. . No murmurs, regular rate, not currently in A. fib ABDOMEN:soft, nondistended, bowel sounds present, small. Abdomen EXTREMITIES: Significant bilateral lower extremity edema, approximately +2 pitting edema. No gross deformities. Moves all 4 extremities equally PULSES: 2+ upper and lower extremity . ASSESMENT This is a 59-year-old gentleman with a with a complicated past medical history including jaw cancer, noncompliance, , atrial fibrillation, empyema, sepsis, lung consolidation. Alcohol abuse, Aspiration, hypoxic respiratory failure. Currently being managed aggressively for his conditions previously stated. Patient is appropriate for hospice care. However patient does not want hospice or HOME HEALTH PROVIDER. He is currently however, DNI and DNR. Will manage patient's condition aggressively as indicated the patient. Currently patient is his own decision maker. In the event the patient is unable to make decisions. He has elected his brother Johnie Weir to make decisions for him. #Sepsis secondary to empyema 2/ . Recurrent aspiration and bilateral aspiration pneumonia -Critical Care team on board -Cardiothoracic vascular surgery on board (Status post chest tube) -Culture positive for pseudomonas and anaerobic bacteria propionibacterium and anaerobic cocci -Procalcitonin of 0.57 -Discontinue ceftazidine today -Continue levaquin -No leukocytosis, remains afebrile ( Likely unable to make immune response) -Status post chest tube #Mucous plugging with consolidation of the left lung, -Status post bronchoscopy and bronchoalveolar lavage -The consolidation has recurred, will likely develop pneumonia of constipation continues -He will need to be reintubated in order to remove the current consultation mucous plug. Patient does not want to be intubated again. -Status post extubation on 10/10/19 -Continue chest PT #Anemia 2/2 Malnutrition, following dilation -Will continue monitor. Will transfuse patient once He is less than 7 for hemo globin #Bilateral lower extremity edema -Supplemental albumin, aggressive diuresis #Nutrition -Tube feeding with NG tube with Jevity -Will need to discontinue NG tube. -NG tube will likely need to replace weekly, once patient becomes more stable, will consider PEG tube placement. #Aspiration -He failed cookie swallow -Aspiration precaution -NPO -Nutrition via NG tube #Diarrhea secondary to bowel regimen and tube feeds. -Resolved #Hypernatremia -Resolved #Severe Protein calorie malnutrition/FTT -BMI 13.6 kg/m2 -Ensure protein shake as nutritional supplements - nutrition consult -Tube feeding with NG tube with Jevity #Difficulty sleeping -Ramelteon #Afib/RVR - Echo with normal EF and moderate pulmonary hypertension - follow as per cardiology - assistance appreciated - digoxin 0.125 daily, continue metoprolol 25 q6h - Discontinued amiodarone on 10/09/19 #Hypophosphatemia -Resolved #Thrombocytopenia secondary to alcohol abuse related bone marrow suppression, severe infection -improved -Will continue to monitor. #Abdominal ileus, secondary to hypophosphatemia, resolved. #alcohol dependence and abuse No signs of withdrawal #Hypokalemia -Rosolved #Hypoglycemia -Resolved #Elevated TSH - Most likely related to current sickness, Follow up as outpatient #Hypotension -resolved #fall - PT/OT when extubated #medical non-compliance - complicates care #right foot wound - optifoam daily dressing #Jaw cancer -Status post reconstruction # Generalized pain will restart toradol and also start on tramadol. reduce dose of morphine. #DVT prophylaxis - mechanical #Disposition -Patient has very poor prognosis given his condition, including his compromised lung function, bilateral lower ext edema, respiratory status. Patient will be appropriate for hospice,/HOME HEALTH PROVIDER. , However patient desires for the moment aggressive therapy for his medical conditions. We'll continue treatment patient is appropriate. CODE Status DNI/DNR VS,Fishbone, I+O VS, Fishbone, I+O Laboratory Tests 10/16/19 04:25 Vital Signs Date Time Temp Pulse Resp B/P (MAP) Pulse Ox O2 Delivery O2 Flow Rate FiO2 10/16/19 06:00 86 30 100/62 (75) 96 High Flow Cannula 15.0 10/16/19 04:00 98.9 10/16/19 00:08 I&O- Last 24 Hours up to 6 AM 10/16/19 06:00 Intake Total 2585 ml Output Total 295 ml Balance 2290 ml GME ATTESTATION GME ATTESTATION My faculty preceptor for this patient encounter was physically present during the encounter and was fully available. All aspects of the patient interview, examination, medical decision making process, and medical care plan development were reviewed and approved by the faculty preceptor. The faculty preceptor is aware and concurs with the plan as stated in the body of this note and will attest to such by his/her cosignature. ATTENDING NOTE When I took over as the medicine attending for Mr. Weir's care, I had been briefed that given the history of a head and neck cancer with ongoing dysphagia, empyema with a collapsed lung and frequent mucus plugging, the goal had been to discuss his goals of care after chest tube placement and drainage, double pseudomonas treatment, with persistent hypoxemia requiring 15L HFNC as well as his reluctance and ultimately denial to get a PEG tube placed because he did not want to be intubated. We ultimately understood after a brief discussion that he wanted to be optimized as best as possible for discharge home with home hospice. However, after this morning's discussion, Mr. Weir is not ready to be on hospice and does not want his NGT out. We have therefore decided to do all aggressive measures including, albumin assisted diuresis, continue antibiotics, pulmonary toilet, and continuation of discussion of nutrition options. At this time, pulmonary and CT surgery are onboard. LEON CARUSO DO Oct 16, 2019 07:46 SELINA PERRY MD Oct 17, 2019 12:40
[2019-10-16] MEDS: RAMELTEON 8 MG TAB (ROZEREM) PO SCH (20:48)
[2019-10-17] VITALS (25 sets, daily range): BP systolic 87–112; BP diastolic 52–70; O2SAT 92
[2019-10-17] MEDS: KETOROLAC 30 MG/ML VIAL (J1885) IV SCH ×4 (03:39→21:13)
[2019-10-17] MEDS: SIMETHICONE 80 MG CHEW TAB NG SCH ×4 (03:40→21:12)
[2019-10-17] MEDS: LEVALBUTEROL 1.25 MG/0.5 ML CONCENTRATE NEB INH SCH ×5 (04:00→21:05)
[2019-10-17] MEDS: SODIUM CHLORIDE HYPERTONIC 3% 15ML NEB SOL INH SCH ×5 (04:00→21:05)
[2019-10-17 04:38] LABS: BASO # 0.1 10^3/uL (0.0-0.2); EOS # 0.3 10^3/uL (0.0-0.5); HEMATOCRIT 24.7 % (42.0-52.0); LYMPH # 0.9 10^3/uL (1.5-5.0); LYMPH % 14.3 % (24.0-44.0); MEAN CORPUSCULAR HEMOGLOBIN 37.9 pg (27.0-33.0); MEAN CORPUSCULAR HGB CONC 32.4 g/dl (32.0-36.5); MONO # 0.7 10^3/uL (0.0-0.8); NEUTROPHILS # 4.2 10^3/uL (1.5-8.5); NEUTROPHILS % 68.2 % (36.0-66.0); PLATELET COUNT, AUTOMATED 134 10^3/uL (150-450); RED BLOOD COUNT 2.11 10^6/uL (4.30-6.10); WHITE BLOOD COUNT 6.2 10^3/uL (4.0-10.0)
[2019-10-17 04:42] LABS: MEAN CORPUSCULAR VOLUME 117.1 fl (80.0-96.0)
[2019-10-17 04:45] LABS: ANISOCYTOSIS 1+; POIKILOCYTOSIS 1+; POLYCHROMASIA 1+
[2019-10-17 04:46] LABS: PLATELET ESTIMATE DECREASED (NORMAL)
[2019-10-17 04:58] LABS: ALBUMIN 1.3 GM/DL (3.2-5.2); ALT/SGPT 7 U/L (12-78); BILIRUBIN,TOTAL 0.2 MG/DL (0.2-1.0); BLOOD UREA NITROGEN 17 MG/DL (7-18); CALCIUM LEVEL 7.6 MG/DL (8.5-10.1); CARBON DIOXIDE LEVEL 39 MEQ/L (21-32); CHLORIDE LEVEL 101 MEQ/L (98-107); CREATININE FOR GFR 0.33 MG/DL (0.70-1.30); GLOMERULAR FILTRATION RATE > 60.0 (>56); GLUCOSE, FASTING 106 MG/DL (70-100); SODIUM LEVEL 143 MEQ/L (136-145); TOTAL PROTEIN 4.1 GM/DL (6.4-8.2)
[2019-10-17] MEDS: METOPROLOL TART 25 MG TABLET NG SCH ×4 (06:00→18:00)
[2019-10-17] MEDS: IPRATROPIUM 0.02% SOLN 0.5MG/2.5 ML NEB INH SCH ×4 (07:22→21:04)
--- NOTE | 2019-10-17 08:33 | REP ---
Portable chest, 07:46 a.m., single AP view with the the patient sitting: Comparison is 10/16/2019 and 05/1938: Complete opacification of the left hemithorax is unchanged. The large right lung infiltrate is unchanged. There is a feeding tube terminating satisfactorily in the upper abdomen, unchanged. The left subclavian central venous catheter is in satisfactory position, unchanged. Impression: There is no interval change. Electronically Signed by Papo Howard MD 10/17/2019 08:25 A
[2019-10-17] MEDS: SENOKOT S TAB PO SCH ×2 (08:44→21:12)
[2019-10-17] MEDS ORDERED: metOLazone 2.5 MG TAB PO ONE (09:30)
[2019-10-17] MEDS ORDERED: BUMETANIDE 1 MG TAB PO SCH (10:00)
[2019-10-17] MEDS: LevoFLOXacin 750 MG TABLET NG SCH (10:11)
[2019-10-17] MEDS: DIGOXIN 0.125 MG TAB NG SCH (10:12)
[2019-10-17] MEDS: CHLORHEXIDINE GLUCONATE 0.12 % 15ML UDC (PERIDEX ORAL RINSE) MT SCH ×2 (10:13→21:12)
[2019-10-17] MEDS: traMADol 50 MG TAB PO SCH ×3 (10:15→21:13)
[2019-10-17] MEDS: PANTOPRAZOLE 40MG INJ (PROTONIX) (C9113) IV SCH (10:16)
[2019-10-17] MEDS: NEUTRA-PHOS 1.5 GM PACKET PO SCH ×3 (10:16→21:12)
[2019-10-17] MEDS: NYSTATIN 100,000 UNITS/GM TOPICAL PWD 15 GM TOP SCH ×2 (10:19→21:14)
[2019-10-17] MEDS ORDERED: VANCOMYCIN HCL 1,000 MG, VIAL MATE ADAPTER 1 EACH in D5W 250 ML IV ONE (11:00)
[2019-10-17] MEDS ORDERED: VANCOMYCIN HCL 500 MG in D5W MINI-BAG PLUS 100 ML IV ONE (12:00)
--- NOTE | 2019-10-17 12:07 | IPN ---
DATE: 10/17/2019 SUBJECTIVE: The patient reports that he is feeling achy and painful all over on exam today. He states it feels "like I have the flu." He is unable to describe exactly when it started and the pain is not localized to any part of his body, he just states that he is achy all over. He had two reported high temperatures last night of 100.8 and 100.6.This morning he refused his chest physiotherapy, but reportedly he did it for 10 minutes at time intermittently all through yesterday. He states that the new NG tube that was replaced yesterday is more comfortable and he was able to cough up some of his secretions last night. Otherwise, he denies any increased shortness of breath (SOB) or dyspnea. He reports that he overall is feeling just not well in terms of his achiness and pain. We had a long conversation with the patient this morning regarding the plan for today and offered him an awake bronchoscopy with local anesthetic, which the patient did not want to do. He wants to think about it longer and would give us his decision tomorrow. Patient stated he did not want to be intubated again as he was previously and stated he definitely did not want to be mechanically ventilated for a prolonged period of time. Otherwise, he has no other complaints today and there were no changes overnight. Shortly after our conversation with Jordan Destin, he consented for in-OR intubation and bronchoscopy with Dr. Urbina today. OBJECTIVE: His vitals at this current time are temperature 99.1, pulse 102, respiratory rate 16, blood pressure 99.63 with a MAP of 75, pulse oximetry is recorded at 96% on 8 liters of oxygen. Intake and output: He had a total intake in the last 24 hours of 2565 mL, output of about 2500 mL, so overall he is still negative positive balance of 265 mL. He was urinating 1.46 mg/kg/hour. He had four recorded bowel movements and his current weight is 69.5 kg. PHYSICAL EXAMINATION: GENERAL: The patient is sitting up in bed. He is calm, cooperative. He does not appear in any acute distress. He is pleasant. He is speaking in full sentences. HEENT: Head is normocephalic, atraumatic. He has moist mucous membranes. His extraocular movements are intact. His pupils are equally, round and reactive to light. NECK: Supple with no thyromegaly and no lymphadenopathy. CHEST: There is even chest rise. PULMONARY: Possible use of accessory muscles of respiration within his belly, otherwise he does have absent breath sounds all throughout the left lung and some scattered rhonchi in the right middle and lower lobes. Otherwise, he has no other adventitious breath sounds appreciated. CARDIOVASCULAR: He is irregularly irregular with controlled rate. No murmurs, rubs or gallops can be heard. ABDOMEN: Soft and nontender to palpation with positive bowel sounds. No masses or organomegaly are appreciated. EXTREMITIES: Lower extremities have trace pitting edema up to the calves bilaterally. SKIN: He has no new rashes or ulcers. LYMPHATICS: He has no enlarged lymph nodes post auricular or cervical chain. PSYCHIATRIC: He has normal mood and normal affect. He is awake, alert, and oriented times three. LABORATORY DATA: White blood cell count of 6.2, hemoglobin is 8.0, up from 7.9 yesterday, hematocrit is 24.7 from 24.5 yesterday. Platelet count is 134. Chemistries sodium 143, potassium 4.0, chloride 101. His carbon dioxide has gone up to 39 from 35 yesterday, BUN is 17, creatinine 0.33 with a GFR estimated at greater than 60%. His albumin is up to 1.3 from 1.0 yesterday. Otherwise, no other labs have been drawn. He did have a chest x-ray done this morning at 7:30 a.m., which was reviewed by myself, and demonstrates continued complete opacification of the left hemithorax that has been unchanged. The large right lung infiltrate has been unchanged. There is a feeding tube terminating satisfactorily in the upper abdomen unchanged, and the left subclavian central venous catheter is in satisfactory position, unchanged. Otherwise, there is no interval change of this chest x-ray from yesterday. It appears very similar. ASSESSMENT: This is a 59-year-old male with a history of atrial fibrillation who presented after being found down at home for several days and found to have a large fluid collection in his left lung, which has since been drained via chest tube and the chest tube has been removed. He also has suspected bilateral aspiration pneumonia from his dysphagia and chronic aspiration of his secretions. He is status post bronchoscopy for mucus plugging and is now demonstrating complete collapse of the left lung from more mucus plugging and worsening aspiration pneumonia. He continues to have a poor cough reflex and hypoalbuminemia, likely secondary to deconditioning. PLAN: 1. Cardiovascular: Heart rate is currently controlled. Continue digoxin and blood pressures have been satisfactory with a MAP above 70. We would like to remove his central venous line in the left subclavian as it has been in for over 10 days now. However, in light of the current treatment plan as directed by Dr. Urbina, he would likely need that central line at least another day as he is going to the OR today for another bronchoscopy. In regards to his positive fluid balance we have given him another dose of Bumex and Zaroxolyn. The Bumex has been scheduled 2 mg twice a day and the Zaroxolyn once today as his albumin is low. He did respond appropriately to the Bumex and the Zaroxolyn yesterday and his fluid status is likely to improve with further diuresis. Caution should be maintained in the setting of an increasing bicarb as we do not want to completely dry him out. In addition, we will also be replacing his albumin with 25% albumin today to further improve his hypoalbuminemia. His oxygenation has been improving with increased diuresis and suspect will be able to wean down his FiO2 with more diuresis if tolerated 2. Respiratory: We recommend continuing with aggressive chest PT, as the patient agrees and chest percussion from respiratory therapy. In addition, Dr. Urbina would like to take the patient to the OR today for intubation and repeat bronchoscopy. It is to our knowledge and through our discussion with the patient this morning that he would not like to be intubated again and to have this procedure done, but after conversation with Dr. Urbina the patient signed a consent form and he will be taken to the OR today for repeat bronchoscopy, intubation and furthermore, Dr. Urbina will be managing his pulmonary care Patient is currently on Levaquin which was changed from IV to p.o. yesterday. He is at day 7 for Levaquin at this time. In addition we gave him one dose of 1 gram of vancomycin which will be discussed in infectious disease section. Otherwise, continue Xopenex treatment, inhaled nebulized saline and aggressive pulmonary toilet. 3. GI/nutrition: Continue with NG tube feeds of Jevity 1.5 with protein supplementation. We have reduced the free water flushes through the NG tube as we feel that this was contributing to his fluid status. Further discussions will need to take place with the patient in subsequent days regarding continuation of the NG tube versus consideration for a PEG tube with surgery. It is to our knowledge that the patient does not want a PEG tube at this time and would be happy with an NG tube, but for plans of going home (possibly on Hospice?) and thereafter he will need to be considered for a PEG tube as with prolonged NGT there is risk for sinusitis. 4. . The patient has had his urinary catheter since he came to the hospital on October 04, 2019. Patient had a low grade fever overnight and so would remove his urinary catheter. We have ordered discontinuation of urinary catheter, but in light of the plans today to go to the OR, it is probably a better idea to keep it in until after he returns from the OR, at which case it should be removed for trial of void. 5. Nephrology. It is to be noted that the patient's sodium has trended up over time and his bicarb has increased, likely secondary to diuresis. Extra care needs to be made to not over diurese the patient. As mentioned before we have attempted to decrease the amount of fluid the patient is getting either through IV or free water flushes, but in this respect special care needs to be put into electrolyte replacement and monitoring. 6. Hematology: We acknowledge that the patient's hemoglobin has dropped throughout his hospitalization, slowly trended down, likely due to anemia of chronic disease and our interventions when hospitalized. He is not suspected to be acutely bleeding. Dr. Urbina has ordered 1 unit of packed red blood cell transfusion today. We recommend to exercise caution with any further fluid resuscitation in this patient as he is currently fluid overloaded and net positive and would recommend more diuresis after this transfusion as tolerated. If he is currently losing blood this should be worked up further, possibly starting with a fecal occult assessment. 7. Skin. The patient formerly had what we thought was a drug rash from his IV Zosyn which has almost completely cleared up. It was on his lower abdomen and upper thighs. Care should be made with any further antibiotic treatment in light of this. 8. Infectious disease. This patient is continued on p.o. Levaquin through the NG tube for his aspiration pneumonia as well as a 1 gram one time dose of vancomycin with a MRSA screen in for new fever. Although his procalcitonin from 2 days ago had come down to 0.5, we are covering him empirically for any new bacterial infection. Patient does need blood cultures and UA for his fever overnight. 9. Hypoalbuminemia: The patient has responded to 5% albumin that was transfused yesterday. We have ordered 25% albumin today and I would suspect it will continue improving with the administration of albumin. CODE STATUS: Patient was previously DNR and DNI as stated and confirmed on MOLST form. However after discussion with Dr. Urbina patient is now FULL CODE for his bronchoscopy and possibly after procedure Total critical care time spent not including procedures approx 45mins. If any further questions or concerns please do not hesitate to call. I, Arlen Corona, have conducted an independent examination of the patient and agree with the above plan as detailed and discussed during rounds. AYDIN
--- NOTE | 2019-10-17 13:02 | IPNPDOC ---
Text Note Date of Service The patient was seen on 10/17/19. NOTE Subjective: Patient was examined at bedside this morning. He complained of generalized body aches. States that he overall feels better. He continues to participate in chest physiotherapy. Denies any chest pain, shortness of breath denies any weakness. Denies any sputum, productive cough. Overnight patient had episodes of tachycardia, ongoing continued hypotension with adequate map. He also had reported MAXIMUM TEMPERATURE of 100.8. That resolved on its own without Tylenol. His oxygen requirement has also been titrating down. He was on 8 L this morning on examination. This morning patient consented to bronchoscopy via thoracic surgeon. Per his discussion with thoracic surgeon. Patient has consented to intubation, bronchoscopy and extubation by thoracic surgery. O: VITALS: See Below GENERAL APPEARANC Chronically ill-appearing gentleman, as questions appropriate, alert, no apparent significant discomfort N Dry mucous membranes, nasogastric tube in place LUNGS: diminished breaths on patient's entire right side, symmetric chest movement, no wheezing, no rhonchi, HEART: Normal S1, S2. . No murmurs, regular rate, not currently in A. fib ABDOMEN:soft, nondistended, bowel sounds present, small. Abdomen EXTREMITIES: Slightly improved bilateral lower extremity edema, approximately +2 pitting edema. No gross deformities. Moves all 4 extremities equally PULSES: 2+ upper and lower extremity . ASSESMENT This is a 59-year-old gentleman with a with a complicated past medical history including jaw cancer, noncompliance, , atrial fibrillation, empyema, sepsis, lung consolidation. Alcohol abuse, Aspiration, hypoxic respiratory failure. Currently being managed aggressively for his conditions previously stated. DNI and DNR. In the event the patient is unable to make decisions. He has elected his brother Johnie Weir to make decisions for him. Plan for patient is to thoracic surgery to manage patient's mucous plugging, empyema, and pleural effusion. While medical team address this patient's fluid overload status with aggressive diuretic therapy and antibiotic management. #Recurrent Mucous plugging and consultation of the left lung, status post bro nchoscopy and drainage, status post chest tube. -Patient has come consented to a second bronchoscopy to perform bypass for surgery today.. He will be intubated prior to the procedure, and extubated of the procedure. -Prior bronchoscopy yielded empyema, rule out was culture positive for Pseudomonas and propionibacterium and anaerobic cocci -Currently on Levaquin by mouth, status post Zosyn, status post ceftazidine -No leukocytosis, remains afebrile ( Likely unable to make immune response) -Continue chest PT #Fever of unknown origin, 2/2 to empyema -Following bronchoscopy today. We'll removed patient's central line, DONALDO Cadena, order blood culture. Also obtain UA. -No leukocytosis -MRSA screen -IV Vanco #Anemia 2/2 Malnutrition, following dilation -Will continue monitor. -One unit of blood transfusion today #Bilateral lower extremity edema -Patient has been started on Bumex twice a day by mouth at 2 mg -Supplemental albumin provided -Will likely increase his Bumex dose following bronchoscopy and extubation #Nutrition -Tube feeding with NG tube with Jevity -Will need to discontinue NG tube. -NG tube will likely need to replace weekly, once patient becomes more stable, will consider PEG tube placement. #Aspiration -He failed cookie swallow -Aspiration precaution -NPO -Nutrition via NG tube ( Kangaroo type) #Diarrhea secondary to bowel regimen and tube feeds. -Resolved #Hypernatremia -Resolved #Severe Protein calorie malnutrition/FTT -BMI 13.6 kg/m2 -Ensure protein shake as nutritional supplements - nutrition consult -Tube feeding with NG tube with Jevity #Difficulty sleeping -Ramelteon #Afib/RVR - Echo with normal EF and moderate pulmonary hypertension - Follow as per cardiology - assistance appreciated - Digoxin 0.125 daily, continue metoprolol 25 q6h - Discontinued amiodarone on 10/09/19 #Hypophosphatemia -Resolved #Thrombocytopenia secondary to alcohol abuse related bone marrow suppression, severe infection -improved -Will continue to monitor. #Abdominal ileus, secondary to hypophosphatemia, resolved. #Alcohol dependence and abuse No signs of withdrawal #Hypokalemia -Rosolved #Hypoglycemia -Resolved #Elevated TSH - Most likely related to current sickness, Follow up as outpatient #Hypotension -Continues to be hypotensive with adequate map. Will monitor closely #fall - PT/OT when extubated #medical non-compliance - Complicates care #right foot wound - optifoam daily dressing #Jaw cancer -Status post reconstruction # Generalized pain will restart toradol and also start on tramadol. reduce dose of morphine. #DVT prophylaxis - mechanical CODE Status DNI/DNR VS,Fishbone, I+O VS, Fishbone, I+O Laboratory Tests 10/17/19 04:20 Vital Signs Date Time Temp Pulse Resp B/P (MAP) Pulse Ox O2 Delivery O2 Flow Rate FiO2 10/17/19 12:10 98.7 97 21 91/60 94 High Flow Cannula 10.0 10/17/19 01:50 80 I&O- Last 24 Hours up to 6 AM 10/17/19 06:00 Intake Total 2755.0 ml Output Total 2705 ml Balance 50.0 ml GME ATTESTATION GME ATTESTATION My faculty preceptor for this patient encounter was physically present during the encounter and was fully available. All aspects of the patient interview, examination, medical decision making process, and medical care plan development were reviewed and approved by the faculty preceptor. The faculty preceptor is aware and concurs with the plan as stated in the body of this note and will attest to such by his/her cosignature. ATTENDING NOTE There was a discussion this morning with Mr. Weir, CT surgery, pulmonology and primary medicine team about the future direction of his care at this time. Ultimately, Dr. Urbina consented the patient for bronchoscopy with agreement for intubation prior to the procedure and will also transfuse him some blood. of note, Mr. Weir had a low grade fever overnight and this morning, pulmonology ordered some blood cultures, rebroaded him to vanc/levaquin and ordered a MRSA PCR and reduced his free water flushes in an effort to reduce fluid input given his overloaded state with ongoing diuresis efforts. Pulmonology eventually signed off and therefore his plan at this time is as follows: 1. Diuresis with bumex 2 PO BID and metolazone 2.5 once 2. Albumin for hypoalbuminea with ongoing diuresis 3. Vanc/levaquin with known recent empyema and now low grade fever 4. pRBCs per CT surgery for anemia, with Hgb~8 5. Intubation for bronch this afternoon per CT surgery 6.Continue tube feeds via NGT that was switched yesterday by pulm before signing off 7. continue ICU care LEON CARUSO DO Oct 17, 2019 13:02 SELINA PERRY MD Oct 17, 2019 13:40
[2019-10-17] MEDS ORDERED: CETACAINE SPRAY 5GM As Ordered ONE (14:12)
[2019-10-17] MEDS ORDERED: MIDAZOLAM INJ 2 MG/2 ML VIAL (J2250) As Ordered ONE (14:12)
[2019-10-17] MEDS ORDERED: propofoL 200 MG/20 ML VIAL As Ordered ONE (14:12)
[2019-10-17] MEDS ORDERED: ROCURONIUM BROMIDE 50 MG/5 ML VIAL As Ordered ONE (14:12)
[2019-10-17] MEDS ORDERED: LIDOCAINE 2% INJ 100 MG/5 ML SDV (FOR ANES.) As Ordered ONE (14:12)
[2019-10-17] MEDS ORDERED: SUCCINYLCHOLINE 100 MG/5 ML SYRINGE (J0330) As Ordered ONE (14:12)
[2019-10-17] MEDS ORDERED: dexameTHASONE 4 MG/ML 1ML VIAL (J1100) As Ordered ONE (14:12)
[2019-10-17] MEDS ORDERED: ONDANSETRON 4MG/2ML VIAL (J2405) As Ordered ONE ×2 (14:12→15:35)
[2019-10-17] MEDS ORDERED: fentaNYL 100 MCG/2 ML INJECTION (J3010) As Ordered ONE (14:12)
[2019-10-17] MEDS ORDERED: HYDROCORTISONE 100 MG/2 ML VIAL (J1720 PER 1) As Ordered ONE (14:24)
[2019-10-17] MEDS ORDERED: SUGAMMADEX SODIUM 500 MG/5 ML VIAL (BRIDION) As Ordered ONE (14:44)
[2019-10-17] MEDS ORDERED: FUROSEMIDE 20 MG/2 ML VIAL (J1940) As Ordered ONE (15:13)
--- NOTE | 2019-10-17 15:23 | PHACANCOPD ---
PHARMACY VANCOMYCIN DOSING Pt Demographics Demographics Patient Age:59 , Weight:69.500 , Gender: male Adjusted Body Weight Events Past 24 Hours Events Past 24 Hours: YES: Fever Vancomycin Vancomycin indication: sepsis, HAP Vancomycin Target Ranges: 15-20 mcg/ml Vancomycin Load Y/N: Yes Load Dose Date Time Vancomycin Load Dose: 1500mg Date: 10/17/19 Time: 1100 Vancomycin Dose Date: 10/17/19. Current Vancomycin Dose: 1G Q12H @2100 Intermittent Dosing?: No Labs Labs Laboratory Tests 10/17/19 04:20 Vital Signs Date Time Temp Pulse Resp B/P (MAP) Pulse Ox O2 Delivery O2 Flow Rate FiO2 10/17/19 13:32 98.3 92 19 96/55 94 High Flow Cannula 10.0 10/17/19 13:16 98.5 108 18 95/54 94 High Flow Cannula 10.0 10/17/19 12:35 98.6 89 18 91/54 94 High Flow Cannula 10.0 10/17/19 12:10 98.7 97 21 91/60 94 High Flow Cannula 10.0 10/17/19 12:00 89 10/17/19 10:15 16 96 Nasal Cannula 8.0 10/17/19 10:12 102 10/17/19 06:30 94 High Flow Cannula 8.0 10/17/19 06:00 101 99/63 10/17/19 05:52 101 23 99/63 (75) 97 High Flow Cannula 10.0 10/17/19 04:08 99.1 93 22 99/70 (80) 98 High Flow Cannula 8.0 10/17/19 04:00 8.0 10/17/19 01:50 Tent/Clifton 80 10/17/19 01:00 99.3 93 98/60 (73) 98 High Flow Cannula 8.0 10/17/19 00:00 100.8 97 24 92/58 (69) 89 High Flow Cannula 10.0 10/17/19 00:00 10.0 10/17/19 00:00 95 94/61 10/16/19 23:46 87 24 94/61 (72) 99 High Flow Cannula 10.0 10/16/19 22:15 86 High Flow Cannula 10.0 10/16/19 21:00 97 High Flow Cannula 8.0 10/16/19 20:47 24 10/16/19 20:00 10.0 10/16/19 20:00 99.8 93 23 103/63 (76) 93 High Flow Cannula 10.0 10/16/19 17:37 96 10/16/19 16:00 100.6 93 24 95/55 (68) 95 High Flow Cannula 10.0 10/16/19 16:00 10.0 80 10/16/19 15:17 26 92 Intake & Output 10/17/19 05:59 Intake Total 2755.0 ml Output Total 2605 ml Balance 150.0 ml Laboratory Tests 10/17/19 04:20: White Blood Count 6.2, Red Blood Count 2.11L, Hemoglobin 8.0L, Hematocrit 24.7L, Mean Corpuscular Volume 117.1H, Mean Corpuscular Hemoglobin 37.9H, Mean Corpuscular Hemoglobin Concent 32.4, Red Cell Distribution Width 15.1H, Platelet Count 134L, Immature Granulocyte % (Auto) 0.5, Neutrophils (%) (Auto) 68.2H, Lymphocytes (%) (Auto) 14.3L, Monocytes (%) (Auto) 11.0H, Eosinophils (%) (Auto) 5.0H, Basophils (%) (Auto) 1.0, Neutrophils # (Auto) 4.2, Lymphocytes # (Auto) 0.9L, Monocytes # (Auto) 0.7, Eosinophils # (Auto) 0.3, Basophils # (Auto) 0.1, Nucleated Red Blood Cells % (auto) 0.0, Platelet Estimate DECREASED, Polychromasia 1+, Poikilocytosis 1+, Anisocytosis 1+, Macrocytosis 2+, Sodium Level 143, Potassium Level 4.0, Chloride Level 101, Carbon Dioxide Level 39H, Anion Gap 3L, Blood Urea Nitrogen 17, Creatinine 0.33L, Glomerular Filtration Rate > 60.0, Fasting Glucose 106H, Calcium Level 7.6L, Phosphorus Level 3.6, Total Bilirubin 0.2, Aspartate Amino Transf (AST/SGOT) 21, Alanine Aminotransferase (ALT/SGPT) 7L, Alkaline Phosphatase 90, Total Protein 4.1L, Albumin 1.3#L, Albumin/Globulin Ratio 0.46L Microbiology 10/08/19 Gram Stain - Final, Complete 10/08/19 Bronchoalveolar Lavage Culture - Final, Complete Yeast Like Organism Current Medications Medications (Trade) Dose Ordered Sig/Arpan Route PRN Reason Start Time Stop Time Status Last Admin Dose Admin Acetaminophen (Tylenol Suspension) 650 mg Q6HP PRN GT PAIN OR FEVER 10/09/19 22:15 10/16/19 00:00 650 MG Bumetanide (Bumex) 2 mg BID PO 10/17/19 10:00 10/18/19 09:59 10/17/19 11:39 2 MG Chlorhexidine Gluconate (Peridex Oral Rinse) SWAB/BRUSH ORAL CAVITY BID MT 10/08/19 21:00 10/17/19 10:13 15 ML Digoxin (Lanoxin) 0.125 mg DAILY NG 10/09/19 09:00 10/17/19 10:12 0.125 MG Diphenhydramine HCl (Benadryl) 25 mg Q8HP PRN PO ITCHING 10/10/19 22:30 10/11/19 23:46 25 MG Ipratropium Burt (Atrovent 0.02%) 0.5 mg RQID INH 10/10/19 12:00 10/17/19 11:50 0.5 MG Ketorolac Tromethamine (ToRADol) 15 mg Q6H IV 10/13/19 09:00 10/18/19 08:59 10/17/19 10:17 15 MG Levalbuterol HCl (Xopenex Neb) 1.25 mg RQ4H INH 10/10/19 12:00 10/17/19 11:50 1.25 MG Levofloxacin (Levaquin) 750 mg DAILY@06 NG 10/17/19 06:00 10/17/19 10:11 750 MG Lorazepam (Ativan) 0.5 mg Q2HP PRN IV ANXIETY/AGITATION, RESTLESSNES 10/11/19 08:45 10/13/19 02:23 0.5 MG Metoprolol Tartrate (Lopressor) 25 mg Q6H NG 10/08/19 18:00 10/13/19 23:11 25 MG Morphine Sulfate (Morphine Sulfate Inj) 2 mg Q4H PRN IV BREAKTHROUGH PAIN 10/13/19 08:45 10/16/19 09:55 2 MG Nystatin (Mycostatin Powder, Nystop) Bilateral groin region. BID TOP 10/12/19 21:00 10/17/19 10:19 1 DOSE Pantoprazole Sodium (Protonix) 40 mg Q24H IV 10/07/19 09:00 10/17/19 10:16 40 MG Potassium Phos/ Sodium Phos (Neutra-Phos 1.5gm Packet) 2 pkt TID PO 10/13/19 09:00 10/17/19 10:16 2 PKT Ramelteon (Rozerem) 8 mg QHS PO 10/11/19 21:00 10/16/19 20:48 8 MG Senna/Docusate Sodium (Senokot S) 2 tab BID PO 10/09/19 09:00 10/14/19 20:20 2 TAB Simethicone (Mylicon) 80 mg Q6H NG 10/09/19 09:00 10/17/19 10:13 80 MG Sodium Chloride (Sodium Chloride 3% Neb Andra) 3 ml RQ4H INH 10/14/19 12:00 10/17/19 11:50 3 ML Tramadol HCl (Ultram) 25 mg TID PO 10/13/19 09:00 10/17/19 10:15 25 MG Micro Microbiology 10/17/19 Blood Culture, Received Pending 10/08/19 Gram Stain - Final, Complete 10/08/19 Bronchoalveolar Lavage Culture - Final, Complete Yeast Like Organism Creatinine Clearance Date:10/17/19. Creatinine Clearance: SCR IS 0.33 WHICH YIELDS CRCL OF 271 , I think this is not accurately representing patient's actual renal function, CrCl is probably closer to 89 Pending Labs MRSA PCR pending, BC pending, pleural fluid culture positive for pseudomonas and anaerobic bacteria propionibacterium and anaerobic cocci Assessment and Plan Maintaining Current Dose?: Yes Reason for dose change: No Dose Change Pharmacist Note Pharmacist Note Date: 10/17/19. Pharmacist note: per MD note "Recurrent Mucous plugging and c onsultation of the left lung, status post bronchoscopy and drainage, status post chest tube. Patient has come consented to a second bronchoscopy to perform bypass for surgery today. Prior bronchoscopy yielded empyema, rule out was culture positive for Pseudomonas and propionibacterium and anaerobic cocci. Currently on Levaquin by mouth, status post Zosyn, status post ceftazidine. Today patient had fever of unknown origin of 100.8 degrees. Second blood culture being sent after bronchoscopy today. MRSA screen pending. WBC WNL at this time. Vancomycin consult placed. Patient has history of vancomycin usage at [facility]. After taking last consult into consideration, I scheduled a 1500mg IV vancomycin load followed by vancomycin 1G q12H starting at 2100. I scheduled a trough for 0800 tomorrow before the 3rd dose. I will continue to monitor the patient and adjust dose as needed. [facility] Oct 17, 2019 15:23
--- NOTE | 2019-10-17 15:42 | REP ---
CHEST, PORTABLE: AP portable view of the chest is performed. Comparison is made with the prior exam of the same day. There is increased aeration of the left mid lung zone laterally. There is still extensive opacities throughout the left hemithorax. Interstitial densities and lateral pleural thickening on the right are stable. Nasogastric tube again traverses into the stomach. IMPRESSION: Mild increased aeration of the left mid lung zone laterally. Electronically Signed by Papo Fischer MD 10/18/2019 03:56 P
[2019-10-17] MEDS ORDERED: ONDANSETRON 4MG/2ML VIAL (J2405) IV PRN (15:45)
[2019-10-17] MEDS ORDERED: NALOXONE INJ 0.4 MG/1 ML VIAL (J2310) IV ONE ×2 (16:00→16:15)
[2019-10-17] MEDS ORDERED: NALOXONE INJ 0.4 MG/1 ML VIAL (J2310) As Ordered ONE (16:00)
--- NOTE | 2019-10-17 16:05 | RO ---
DATE OF PROCEDURE: 10/17/2019 PREPROCEDURE DIAGNOSIS: Mucus plugging left mainstem bronchus. POSTPROCEDURE DIAGNOSIS: Mucus plugging left mainstem bronchus. PROCEDURE: Bronchoscopy, bronchoalveolar lavage and clearing mucus secretions with intended cultures. SURGEON: Fer Urbina MD ASSISTANTS: ANESTHESIA: DESCRIPTION OF PROCEDURE: Under satisfactory general anesthetic the patient was intubated with a 7-1/2 tube by anesthesia without difficulty. Bronchoscope was placed into the mainstem bronchus. Initial inspection showed that the right tracheobronchial tree was clear of mucus. There were no endobronchial lesions. The scope was then placed prior to inspecting the mainstem bronchus. An inner mainstem bronchus sample was taken from the trachea for aerobic, anaerobic, fungal, and tuberculosis (TB). The bronchoscope was then placed into the left mainstem bronchus and it was notable that the left mainstem bronchus was occluded just at the bifurcation of the upper and lower lobes. The entire length of the mainstem bronchus except at the lobar bifurcation was clear. Secretions were rather thin and were removed after taking again cultures of the left mainstem bronchus for aerobic, anaerobic, fungal, and TB. What came out was yellow-green to steele mucus. After clearing the mainstem bronchus, the remainder segmental and subsegmental bronchi were then inspected and suction aspirated. A pediatric scope was then inserted to inspect bronchi further out. These underwent bronchioalveolar lavage again and were suctioned aspirated. The bronchoscope was withdrawn and patient was then extubated. Patient tolerated the procedure well and left the operating room in satisfactory condition to the recovery room.
[2019-10-17] MEDS ORDERED: FUROSEMIDE 40 MG/4 ML VIAL (J1940) IV ONE (16:15)
[2019-10-17] MEDS ORDERED: ACETYLCYSTEINE 20% 4 ML VIAL (200MG/ML) INH SCH (20:00)
[2019-10-17] MEDS: ACETYLCYSTEINE 20% 4 ML VIAL (200MG/ML) INH SCH (21:04)
[2019-10-17] MEDS: RAMELTEON 8 MG TAB (ROZEREM) PO SCH (21:12)
[2019-10-17] MEDS: VANCOMYCIN HCL 1,000 MG, VIAL MATE ADAPTER 1 EACH in D5W 250 ML IV SCH (21:13)
[2019-10-17 22:12] LABS: APPEARANCE, URINE HAZY (CLEAR); BACTERIA, URINE AUTO 1+ (NEGATIVE); BILIRUBIN, URINE AUTO NEGATIVE (NEGATIVE); BLOOD, URINE BLOOD NEGATIVE (NEGATIVE); COLOR, URINE YELLOW (YELLOW); GLUCOSE, URINE (UA) AUTO NEGATIVE (NEGATIVE); KETONE, URINE AUTO NEGATIVE (NEGATIVE); LEUKOCYTE ESTERASE, URINE AUTO NEGATIVE (NEGATIVE); NITRITE, URINE AUTO NEGATIVE (NEGATIVE); PROTEIN, URINE AUTO NEGATIVE (NEGATIVE); RBC, URINE AUTO 7 /HPF (0-3); SPECIFIC GRAVITY URINE AUTO 1.012 (1.002-1.035); SQUAMOUS EPITHELIAL CELL UR AU 0 /HPF (0-6); UROBILINOGEN, URINE AUTO 0.2 mg/dL (0.0-2.0); WBC, URINE AUTO 5 /HPF (0-3)
[2019-10-18] VITALS (19 sets, daily range): BP systolic 91–108; BP diastolic 55–70; O2SAT 91–98
[2019-10-18] MEDS: LEVALBUTEROL 1.25 MG/0.5 ML CONCENTRATE NEB INH SCH ×6 (00:56→20:35)
[2019-10-18] MEDS: SODIUM CHLORIDE HYPERTONIC 3% 15ML NEB SOL INH SCH ×6 (00:57→20:35)
[2019-10-18] MEDS: SIMETHICONE 80 MG CHEW TAB NG SCH ×4 (04:14→21:27)
[2019-10-18] MEDS: KETOROLAC 30 MG/ML VIAL (J1885) IV SCH (04:14)
[2019-10-18] MEDS: METOPROLOL TART 25 MG TABLET NG SCH ×4 (05:43→18:00)
[2019-10-18] MEDS: LevoFLOXacin 750 MG TABLET NG SCH (05:43)
[2019-10-18] MEDS: MORPHINE 2 MG/ML 1ML VIAL (J2270) IV PRN ×2 (06:11→21:15)
[2019-10-18 08:11] LABS: BASO % 0.5 % (0.0-1.0); EOS # 0.1 10^3/uL (0.0-0.5); EOS % 1.3 % (0.0-3.0); HEMATOCRIT 33.9 % (42.0-52.0); LYMPH % 11.9 % (24.0-44.0); MEAN CORPUSCULAR HEMOGLOBIN 36.7 pg (27.0-33.0); MEAN CORPUSCULAR HGB CONC 32.4 g/dl (32.0-36.5); MONO # 0.9 10^3/uL (0.0-0.8); MONO % 11.1 % (0.0-5.0); NEUTROPHILS # 6.2 10^3/uL (1.5-8.5); NEUTROPHILS % 74.7 % (36.0-66.0); PLATELET COUNT, AUTOMATED 175 10^3/uL (150-450); WHITE BLOOD COUNT 8.3 10^3/uL (4.0-10.0)
[2019-10-18] MEDS: IPRATROPIUM 0.02% SOLN 0.5MG/2.5 ML NEB INH SCH ×4 (08:13→20:36)
--- NOTE | 2019-10-18 08:15 | REP ---
PA and lateral chest: Comparison is the portable chest 10/17/2019 at 03:13 p.m.: Aeration of the left lung continues to increase. There is a large infiltrate throughout the entire right lung, unchanged. There is a feeding tube terminating in the upper abdomen in satisfactory location, unchanged. Cardiac size is upper normal. Impression: Continued improved aeration of the left lung. The Electronically Signed by Papo Howard MD 10/18/2019 08:07 A
[2019-10-18 08:31] LABS: BLOOD UREA NITROGEN 21 MG/DL (7-18); CARBON DIOXIDE LEVEL 44 MEQ/L (21-32); CHLORIDE LEVEL 94 MEQ/L (98-107); CREATININE FOR GFR 0.47 MG/DL (0.70-1.30); GLOMERULAR FILTRATION RATE > 60.0 (>56); GLUCOSE, FASTING 79 MG/DL (70-100); PHOSPHORUS LEVEL 4.1 MG/DL (2.5-4.9); POTASSIUM SERUM 3.7 MEQ/L (3.5-5.1); SODIUM LEVEL 141 MEQ/L (136-145); VANCOMYCIN LEVEL TROUGH 13.7 UG/ML (10.0-20.0)
[2019-10-18] MEDS: VANCOMYCIN HCL 1,000 MG, VIAL MATE ADAPTER 1 EACH in D5W 250 ML IV SCH ×2 (08:59→21:29)
[2019-10-18] MEDS: traMADol 50 MG TAB PO SCH ×3 (09:21→21:29)
[2019-10-18] MEDS: PANTOPRAZOLE 40MG INJ (PROTONIX) (C9113) IV SCH (09:22)
[2019-10-18] MEDS: NEUTRA-PHOS 1.5 GM PACKET PO SCH ×3 (09:22→21:27)
[2019-10-18] MEDS: SENOKOT S TAB PO SCH ×2 (09:22→21:29)
[2019-10-18] MEDS: DIGOXIN 0.125 MG TAB NG SCH (09:22)
[2019-10-18] MEDS: CHLORHEXIDINE GLUCONATE 0.12 % 15ML UDC (PERIDEX ORAL RINSE) MT SCH ×2 (09:23→21:29)
[2019-10-18] MEDS: NYSTATIN 100,000 UNITS/GM TOPICAL PWD 15 GM TOP SCH ×2 (09:23→21:30)
--- NOTE | 2019-10-18 09:28 | IPN ---
DATE: 10/18/2019 Mr. Weir underwent bronchoscopy and clearing of mucus plugs yesterday afternoon. Today, I am very gratified that he was taken down to chest x-ray in a wheelchair and he is now sitting up and in fact smiling. His lung looks to be fully expanded to the chest wall. He is undergoing therapy vest every 4 hours. His vital signs show now a T-max of 98.9 compared to 100.8 yesterday. His heart rate ranges between 83 and 91 in a sinus rhythm with a respiratory rate of 18 to 20 without the use of accessory muscles who is 100% to 92% saturated now on 8 liters nasal cannula. His blood pressure is ranging between 92/62 to 105/62. His intake and output over the past 24 hours has been recorded as 2710 in and 3255 out for a negativity of 545 mL. [place] [address] mL in urine yesterday. His tube feeds have been restarted. His weight today is 60.9 kg compared to 69.5 kg yesterday. I suspect the weight today is spurious as I do not think he would have lost that much in 24 hours. On physical examination, I can now hear breath sounds on either side. He has some rhonchi, most of which are now clearing with coughing. Percussion note is full to the diaphragm. Cardiac exam is without murmurs, clicks, gallops or rubs. I cannot feel his point of maximum impulse (PMI). S1 and S2 are normal. Abdomen is firm, nontender, with bowel sounds positive. There is no costovertebral angle (CVA) tenderness. No hepatomegaly that I can feel in the sitting position. Extremities show maybe trace pretibial edema, but no calf tenderness. There is no differential swelling of the upper extremities. Skin is warm, dry and perfused, without cyanosis or mottling including that of the nail beds and knees. Neck is supple. There is no jugular venous distention. No subcutaneous emphysema. Trachea is midline. Mouth shows his mucous membranes to be pink and moist. Lips and commissures are without lesions. There is no thrush. Eyes show his pupils to be equal and reactive. Extraocular movement intact. Sclerae nonicteric. Neurologic shows II-XII intact along with gross motor and gross sensation intact. Gait is not tested. Psychiatric shows him to be awake and alert, oriented times three with appropriate mood and affect and conversational. His white count today is still pending and I will review that shortly as are his electrolytes. I would hope that his total CO2 goes down from 39 yesterday now that he can ventilate. His chest x-ray as noted above now shows the lung expanded to the chest wall. The left costophrenic angle is obscured and he has apical cap of fluid at the top of the lung in the cupula. It is improved over yesterday's postoperative x-ray. With the PA view, the interstitial infiltrate on the right looks to be improved. There may be an air pocket posteriorly on the lateral film. I suspect his lung is still entrapped near the costophrenic angle. IMPRESSION: 1. Aspiration pneumonia right and left side, continuing. 2. Empyema, left side, resolved with drainage that grew Pseudomonas and an anaerobe. 3. Mucus plugging and consolidation of the left lung, improved after bronchoscopy. 4. Right pleural effusion, resolved. 5. Thrombocytopenia, resolved. 6. Hypotension, intermittent. 7. Hypoxia, continuing, but improving. 8. Prior alcohol abuse. 9. Protein calorie malnutrition. 10. Atrial fibrillation with rapid ventricular response. 11. Hypernatremia secondary to tube feeds. 12. Entrapped lower lobe at costophrenic angle. 13. Underlying sepsis. 14. Hypoalbuminemia. PLAN AND DISCUSSION: While I am gratified that his lung is now reexpanded, continued reexpansion will be dependent upon aggressive lung expansion therapy along with aggressive mobilization. We are certainly not out of the almanza and he could certainly occlude his lung again. It is nice to see him up in a chair and smiling. We will await his laboratory results today. Cultures from the bronchoscopy are pending.
--- NOTE | 2019-10-18 10:17 | PHACANCOPD ---
PHARMACY VANCOMYCIN DOSING Pt Demographics Demographics Patient Age:59 , Weight:60.900 , Gender: male Adjusted Body Weight Events Past 24 Hours Events Past 24 Hours: NO: Dialysis, Diuretic Therapy, Change in CrCl, Fever, Elevation in WBC, Pending Diagnostics, Pending Procedures, Other Vancomycin Vancomycin indication: sepsis, HAP Vancomycin Target Ranges: 15-20 mcg/ml Vancomycin Load Y/N: Yes Load Dose Date Time Vancomycin Load Dose: 1500mg Date: 10/17/19 Time: 1100 Vancomycin Dose Date: 10/17/19. Current Vancomycin Dose: 1G Q12H @2100 Intermittent Dosing?: No Labs Labs Item Value Date Time Creatinine 0.30 MG/DL L 10/16/19 0425 Creatinine 0.33 MG/DL L 10/17/19 0420 Creatinine 0.47 MG/DL L 10/18/19 0800 Vancomycin Level Trough 13.7 UG/ML 10/18/19 0800 Micro Microbiology 10/17/19 Gram Stain - Final, Resulted 10/17/19 Wound Culture, Resulted Pending 10/17/19 Anaerobic Culture, Resulted Pending 10/17/19 Anaerobic Culture, Received Pending 10/17/19 Gram Stain - Final, Resulted 10/17/19 Sputum Culture, Resulted Pending 10/17/19 Blood Culture, Received Pending 10/08/19 Gram Stain - Final, Complete 10/08/19 Bronchoalveolar Lavage Culture - Final, Complete Yeast Like Organism Creatinine Clearance Date:10/17/19. Creatinine Clearance: SCR IS 0.33 WHICH YIELDS CRCL OF 271 , I think this is not accurately representing patient's actual renal function, CrCl is probably closer to 89 Pending Labs MRSA PCR pending, BC pending, pleural fluid culture positive for pseudomonas and anaerobic bacteria propionibacterium and anaerobic cocci Assessment and Plan Maintaining Current Dose?: Yes Reason for dose change: No Dose Change Pharmacist Note Pharmacist Note Date: 10/18/19. Pharmacist note:PT trough came back at 13.7mcg/ml at ~08 prior to the third dose. We will continue 1g IV every 12 hours. Another trough is scheduled for 10/19/19 @08:00. We will continue to monitor and adjust the dose as needed. Date: 10/17/19. Pharmacist note: per MD note "Recurrent Mucous plugging and consultation of the left lung, status post bronchoscopy and drainage, status post chest tube. Patient has come consented to a second bronchoscopy to perform bypass for surgery today. Prior bronchoscopy yielded empyema, rule out was culture positive for Pseudomonas and propionibacterium and anaerobic cocci. Currently on Levaquin by mouth, status post Zosyn, status post ceftazidine. Today patient had fever of unknown origin of 100.8 degrees. Second blood culture being sent after bronchoscopy today. MRSA screen pending. WBC WNL at this time. Vancomycin consult placed. Patient has history of vancomycin usage at [facility]. After taking last consult into consideration, I scheduled a 1500mg IV vancomycin load followed by vancomycin 1G q12H starting at 2100. I scheduled a trough for 0800 tomorrow before the 3rd dose. I will continue to monitor the patient and adjust dose as needed. ANAID MCKINNON PHARMACY Oct 18, 2019 10:17
--- NOTE | 2019-10-18 10:54 | IPNPDOC ---
Text Note Date of Service The patient was seen on 10/18/19. NOTE Subjective: Patient was examined this morning in his room. He appeared very happy and was siting in a chair comfortably. He continues to complain of generialized pain. He is status post bronchoscopy yesterday. He continues to undergo chest PT. He has cough without sputum production. He had no fevers overnight and had a T-max of 98.9. He also had decrease oxygen demand over night. Denies chest pain today. O: VITALS: See Below GENERAL APPEARANCE: Smiling, sitting comfortably in a wheelchair, no apparent discomfort. HEENT: Nasogastric tube in place, oxygen in place. Moist oral mucosa LUNGS: No use. Assessment muscle, mild rhonchi, no wheezing, symmetric chest movement, no use of accessory muscle, slight dull to percussion HEART: Normal S1, S2. . No murmurs, regular rate, not currently in A. fib , occasionally tachycardic ABDOMEN:soft, EXTREMITIES: significantly improved bilateral lower extremity edema, edema has essentially resolved, able to move all 4 extremities without deformities, muscle strength 5 out of 5 PULSES: 2+ upper and lower extremity . ASSESMENT This is a 59-year-old gentleman, currently being managed aggressively for lung consolidation, physical deconditioning, aspiration, hypoxic respiratory failure. Patient is currently a DNR/DNI. He successfully underwent bronchoscopy yesterday. #Left lung consolidations - bronchoscopy and clearing of mucus plugs yesterday afternoon. He has significant improvement this morning. He -Continue chest PT (aggressively) -Cultures from the bronchoscopy are pending. -Prior bronchoscopy yielded an infected empyema, cultures positive for Pseudomonas and propionibacterium and anaerobic cocci -Will continue IV Levaquin until cultures are available. We'll de-escalate antibiotics. There -No leukocytosis, remains afebrile ( Likely unable to make immune response) -MRSA screen negative, IV vancomycin once, yesterday #Anemia 2/2 Malnutrition, following dilation -Improved with 1 unit of packed RBCs #Bilateral lower extremity edema -Status post Bumex, and frusemide. -Edema significantly improved. We'll hold off on diuretics today #Nutrition -Tube feeding with NG tube with Jevity -Will need to discontinue NG tube. -NG tube will likely need to replace weekly, once patient becomes more stable, will consider PEG tube placement. #Aspiration -He failed cookie swallow -Aspiration precaution -NPO -Nutrition via NG tube ( Kangaroo type) -Once patient continues to improve clinically. Will have speech therapy. Reassess patient #Diarrhea secondary to bowel regimen and tube feeds. -Resolved #Hypernatremia -Resolved #Severe Protein calorie malnutrition/FTT -BMI has improved since admission. Current BMI is 18.2 kg/m2 ( will continue to monitor) -Ensure protein shake as nutritional supplements -Tube feeding with NG tube with Jevity #Difficulty sleeping -Ramelteon #Afib/RVR - Echo with normal EF and moderate pulmonary hypertension - Follow as per cardiology - assistance appreciated - Digoxin 0.125 daily, continue metoprolol 25 q6h - Discontinued amiodarone on 10/09/19 #Hypophosphatemia -Resolved #Thrombocytopenia secondary to alcohol abuse related bone marrow suppression, severe infection -improved -Will continue to monitor. #Abdominal ileus, secondary to hypophosphatemia resolved. #Alcohol dependence and abuse No signs of withdrawal #Hypokalemia -Rosolved #Hypoglycemia -Resolved #Elevated TSH - Most likely related to current sickness, Follow up as outpatient #Hypotension -Continues to be hypotensive with adequate map. Will monitor closely #fall - PT/OT when extubated #medical non-compliance - Complicates care #right foot wound - optifoam daily dressing #Jaw cancer -Status post reconstruction # Generalized pain -Will restart toradol and also start on tramadol. reduce dose of morphine. -D/C ketorolac today #DVT prophylaxis - Mechanical CODE Status DNI/DNR VS,Fishbone, I+O VS, Fishbone, I+O Laboratory Tests 10/18/19 08:00 Vital Signs Date Time Temp Pulse Resp B/P (MAP) Pulse Ox O2 Delivery O2 Flow Rate FiO2 10/18/19 09:22 85 10/18/19 09:21 32 97 Nasal Cannula 8.0 10/18/19 08:00 99.7 104/65 (78) 10/17/19 01:50 80 I&O- Last 24 Hours up to 6 AM 10/18/19 06:00 Intake Total 2875.0 ml Output Total 3010 ml Balance -135.0 ml GME ATTESTATION GME ATTESTATION My faculty preceptor for this patient encounter was physically present during the encounter and was fully available. All aspects of the patient interview, examination, medical decision making process, and medical care plan development were reviewed and approved by the faculty preceptor. The faculty preceptor is aware and concurs with the plan as stated in the body of this note and will attest to such by his/her cosignature. ATTENDING NOTE Mr. Weir, looked much better today and was down to 8L on HFNC from 15 yesterday. He is s/p bronch and clearing of mucus plug with pending bronch cultures while remaining on levaquin and Q4H chest PT with much better air movement on exam. LEON CARUSO DO Oct 18, 2019 10:54 SELINA PERRY MD Oct 19, 2019 08:48
[2019-10-18 11:35] LABS: ALBUMIN 1.8 GM/DL (3.2-5.2); MAGNESIUM LEVEL 1.9 MG/DL (1.8-2.4)
[2019-10-18] MEDS: ACETYLCYSTEINE 20% 4 ML VIAL (200MG/ML) INH SCH ×2 (11:39→20:36)
[2019-10-18] MEDS ORDERED: FUROSEMIDE 40 MG/4 ML VIAL (J1940) IV ONE (18:00)
[2019-10-18] MEDS ORDERED: POTASSIUM CHLORIDE 10% LIQ 20 MEQ/15 ML UDC PO ONE (18:00)
[2019-10-18] MEDS ORDERED: DORNASE INHALATION SOLN 1 MG/ML 2.5 ML AMP (J7639 PER 1MG) INH SCH (20:00)
[2019-10-18] MEDS: RAMELTEON 8 MG TAB (ROZEREM) PO SCH (21:50)
[2019-10-19] VITALS (22 sets, daily range): BP systolic 90–161; BP diastolic 55–104; O2SAT 90–97
[2019-10-19] MEDS: LEVALBUTEROL 1.25 MG/0.5 ML CONCENTRATE NEB INH SCH ×6 (01:00→20:43)
[2019-10-19] MEDS: SODIUM CHLORIDE HYPERTONIC 3% 15ML NEB SOL INH SCH ×6 (01:00→20:43)
[2019-10-19] MEDS: MORPHINE 2 MG/ML 1ML VIAL (J2270) IV PRN (01:23)
[2019-10-19] MEDS: SIMETHICONE 80 MG CHEW TAB NG SCH ×4 (03:47→21:29)
[2019-10-19 05:10] LABS: BASO # 0.1 10^3/uL (0.0-0.2); BASO % 1.6 % (0.0-1.0); EOS # 0.7 10^3/uL (0.0-0.5); HEMATOCRIT 30.8 % (42.0-52.0); HEMOGLOBIN 9.9 g/dl (13.5-17.5); LYMPH # 0.9 10^3/uL (1.5-5.0); LYMPH % 14.7 % (24.0-44.0); MEAN CORPUSCULAR HEMOGLOBIN 36.3 pg (27.0-33.0); MEAN CORPUSCULAR HGB CONC 32.1 g/dl (32.0-36.5); MEAN CORPUSCULAR VOLUME 112.8 fl (80.0-96.0); MONO # 0.9 10^3/uL (0.0-0.8); MONO % 14.1 % (0.0-5.0); NEUTROPHILS # 3.6 10^3/uL (1.5-8.5); NEUTROPHILS % 58.3 % (36.0-66.0); PLATELET COUNT, AUTOMATED 173 10^3/uL (150-450); RED BLOOD COUNT 2.73 10^6/uL (4.30-6.10); WHITE BLOOD COUNT 6.2 10^3/uL (4.0-10.0)
[2019-10-19] MEDS: METOPROLOL TART 25 MG TABLET NG SCH ×4 (05:48→18:00)
[2019-10-19] MEDS: LevoFLOXacin 750 MG TABLET NG SCH (05:50)
[2019-10-19 07:56] LABS: BLOOD UREA NITROGEN 20 MG/DL (7-18); CARBON DIOXIDE LEVEL 52 MEQ/L (21-32); CHLORIDE LEVEL 91 MEQ/L (98-107); CREATININE FOR GFR 0.32 MG/DL (0.70-1.30); GLOMERULAR FILTRATION RATE > 60.0 (>56); GLUCOSE, FASTING 88 MG/DL (70-100); SODIUM LEVEL 140 MEQ/L (136-145)
[2019-10-19 08:23] LABS: ALBUMIN 1.6 GM/DL (3.2-5.2); C REACTIVE PROTEIN QUANTITATIV 3.24 MG/DL (0.00-0.30)
[2019-10-19] MEDS: SENOKOT S TAB PO SCH ×2 (08:54→21:00)
[2019-10-19] MEDS: IPRATROPIUM 0.02% SOLN 0.5MG/2.5 ML NEB INH SCH ×4 (08:56→20:43)
[2019-10-19] MEDS: DORNASE INHALATION SOLN 1 MG/ML 2.5 ML AMP (J7639 PER 1MG) INH SCH ×2 (08:56→20:43)
[2019-10-19] MEDS: ACETYLCYSTEINE 20% 4 ML VIAL (200MG/ML) INH SCH ×2 (08:57→20:43)
[2019-10-19] MEDS ORDERED: metOLazone 2.5 MG TAB NG ONE (10:00)
[2019-10-19] MEDS ORDERED: BUMETANIDE 1 MG TAB PO ONE (10:00)
--- NOTE | 2019-10-19 10:01 | REP ---
Clinical: Pneumonia. Mucus plugging. Technique: PA and lateral. Comparison: 10/18/2019. Findings: Moderate left pleural effusion and left-sided opacities have increased since prior examination. Right-sided opacities and small right pleural effusion appear relatively stable. Underlying diffuse chronic interstitial changes again noted. Impression: Increased left pleural effusion and left sided opacities. Electronically Signed by Alexsander Marsh MD 10/19/2019 09:52 A
[2019-10-19] MEDS: PANTOPRAZOLE 40MG INJ (PROTONIX) (C9113) IV SCH (10:38)
[2019-10-19] MEDS: NYSTATIN 100,000 UNITS/GM TOPICAL PWD 15 GM TOP SCH ×2 (10:39→21:30)
[2019-10-19] MEDS: CHLORHEXIDINE GLUCONATE 0.12 % 15ML UDC (PERIDEX ORAL RINSE) MT SCH ×2 (10:39→21:30)
[2019-10-19] MEDS: NEUTRA-PHOS 1.5 GM PACKET NG SCH ×3 (10:40→21:29)
[2019-10-19] MEDS: traMADol 50 MG TAB PO SCH ×3 (10:41→21:29)
[2019-10-19] MEDS: DIGOXIN 0.125 MG TAB NG SCH (10:45)
--- NOTE | 2019-10-19 11:40 | IPNPDOC ---
Text Note Date of Service The patient was seen on 10/19/19. NOTE Subjective: Patient was examined at bedside. He complained of continued generalized body pain, this is chronic and ongoing. Overnight he was afebrile, although tachycardic at times. Continue to denies chest pain, no shortness of breath. He continues with chest PT and has an expanding left lung, status post bronchoscopy O: VITALS: See Below GENERAL APPEARANCE: Chronically ill-appearing, Improved mood. talkative and willing to continue treatment plan HEENT: Nasogastric tube in place, oxygen in place. LUNGS: No use of assessment muscle, no wheezing, symmetric chest movement, diminished air entry HEART: S1, S2 present and rate and rhythm, no tachycardic, no murmurs, EXTREMITIES: No tenderness to palpation, no deformities, no cyanosis, no pretibial edema, PULSES: 2+ upper and lower extremity . ASSESMENT This is a 59-year-old gentleman, currently being managed aggressively for lung consolidation, physical deconditioning, aspiration, hypoxic respiratory failure. Patient is currently a DNR/DNI. Status post second bronchoscopy, with pulmonary physical therapy. Continue to manage patient's electrolyte disturbances, oxygenation, A. fib, physical deconditioning, edema and anemia. No longer no antibiotics. #Left lung consolidations - s/p bronchoscopy and clearing of mucus plugs. ( lung continues to expand) -Continue chest PT -Cultures from the bronchoscopy are pending. -Prior bronchoscopy yielded an infected empyema, cultures positive for Pseudomonas and propionibacterium and anaerobic cocci -Will discontinue levaquin today. ( He has a total of 15 days of antibiotics since admission) He as previously been on Zosyn (10/04-10/10), vancomycin(10/17- 10/19), Levaquin (10/10-10/17) and Ceftazidime (10/11-10/15) -No leukocytosis, remains afebrile ( Likely unable to make immune response) -Can restart antibiotics if bronchoscopy cultures yield infection #Bilateral lower extremity edema -Improved, He has very minimal lower extremity edema, however he is almost posit kiah 2 liters. Will give one time bumex 2 mg and metolazone 2.5 mg and continue to monitory I and Os #Anemia 2/2 Malnutrition, following dilation -Stable, s/p one unit of PRBC #Hypoalbuminemia secondary to malnutrition -Albumin replacement ordered -Continue to monitor #Nutrition -Tube feeding with NG tube with Jevity -Will need to discontinue NG tube. -NG tube will likely need to replace weekly, once patient becomes more stable, will consider PEG tube placement. #Physical Decondition -Continue PT and OT #Aspiration -He failed cookie swallow -Aspiration precaution -NPO -Nutrition via NG tube ( Kangaroo type) -Once patient continues to improve clinically. Will have speech therapy. Nalini ssess patient #Severe Protein calorie malnutrition/FTT -BMI has improved since admission. Current BMI is 18.2 kg/m2 ( will continue to monitor) -Ensure protein shake as nutritional supplements -Tube feeding with NG tube with Jevity #Difficulty sleeping -Ramelteon #Afib/RVR - Echo with normal EF and moderate pulmonary hypertension - Follow as per cardiology - assistance appreciated - Digoxin 0.125 daily, continue metoprolol 25 q6h - Discontinued amiodarone on 10/09/19 #Hypophosphatemia -Resolved #Thrombocytopenia secondary to alcohol abuse related bone marrow suppression, severe infection -improved -Will continue to monitor. #Alcohol dependence and abuse No signs of withdrawal #Hypokalemia -Rosolved #Hypoglycemia -Resolved #Elevated TSH - Most likely related to current sickness, Follow up as outpatient #Hypotension -Stable. Continue to monitor #medical non-compliance - Complicates care #right foot wound - optifoam daily dressing #Jaw cancer -Status post reconstruction # Generalized pain -Tramadol #DVT prophylaxis - Mechanical CODE Status DNI/DNR VS,Fishbone, I+O VS, Fishbone, I+O Laboratory Tests 10/19/19 04:17 Vital Signs Date Time Temp Pulse Resp B/P (MAP) Pulse Ox O2 Delivery O2 Flow Rate FiO2 10/19/19 10:45 108 10/19/19 10:41 20 10/19/19 06:00 100/65 (77) 89 High Flow Cannula 10.0 10/19/19 04:00 98.9 10/17/19 01:50 80 I&O- Last 24 Hours up to 6 AM 10/19/19 06:00 Intake Total 2585 ml Output Total 1350 ml Balance 1235 ml GME ATTESTATION GME ATTESTATION My faculty preceptor for this patient encounter was physically present during the encounter and was fully available. All aspects of the patient interview, examination, medical decision making process, and medical care plan development were reviewed and approved by the faculty preceptor. The faculty preceptor is aware and concurs with the plan as stated in the body of this note and will attest to such by his/her cosignature. ATTENDING NOTE 59-year-old M with a history of a head and neck ca s/p surgery who was admitted for aspiration PNA c/b lung collapse and mucus plugging with a persistent lung consolidation, physical deconditioning, aspiration, hypoxeimc respiratory failure who is now s/p a second bronchoscopy this admission with aggressive pulmonary toilet for whom we have now discontinued antibiotics after 15 days. Will continue to monitor for now while on tube feeds with continuing NGT while refusing PEG and 15L HFNC. LEON CARUSO DO Oct 19, 2019 11:40 SELINA PERRY MD Oct 20, 2019 06:42
[2019-10-19] MEDS: ACETAMINOPHEN 325 MG/10.15 ML UDC GT PRN (14:32)
--- NOTE | 2019-10-19 17:56 | IPN ---
DATE: 10/19/2019 Mr. Weir is sitting comfortably in his chair today. He is still quite weak, although the nursing staff tells me that he does have unexpected strength in standing up. His vital signs show a maximum temperature (t-max) of 99.0 with a heart rate that ranges between 108 and 90 in atrial fibrillation with a respiratory rate of 18 to 20 without the use of accessory muscles, who is 95% saturated between 10 and 8 liters high flow cannula, and his blood pressure is ranging between 133/88 to 99/66. His intake and output over the past 24 hours has been recorded as 3000 and 1200 out for a positivity of 1800 mL. He has put out 1200 mL in urine and he has taken 1320 mL in tube feedings and about 1400 mL in free water and medications. PHYSICAL EXAMINATION: LUNGS: His lungs show decreased breath sounds in the left lower hemithorax with complete E-to-A egophony in the left hemithorax. His right upper hemithorax shows breath sounds. The right side shows some crackles during inspiration but they are very faint. CARDIAC EXAM: Without murmurs, clicks, gallops or rubs, although it is difficult to completely auscultate him because of his cachexia. ABDOMEN: Soft, nontender. Bowel sounds positive. He is slightly tympanitic and distended. EXTREMITIES: Show no pretibial edema. No calf tenderness. No differential swelling of the upper extremities. SKIN: Warm, dry and perfused without cyanosis or mottling, including that of the nail beds and knees. NECK: Supple. There is no jugular venous distention. No subcutaneous emphysema. Trachea is midline. MOUTH: Shows his mucous membranes to be pink and moist. Lips and commissures without lesions. There is no thrush. EYES: Show his pupils to be equal and reactive. Extraocular motion intact. Sclerae anicteric. NEUROLOGIC: Gross motor and gross sensation intact. PSYCHIATRIC: Shows him to be awake and alert, able to answer questions, but very frustrated. LABORATORY DATA: His white count today is 6.2 with a hemoglobin and hematocrit of 9.9 and 30.8, slightly down from 11.0 and 33.9 secondary to hemodilution. Platelet count is 173 with a differential that shows 58% neutrophils, 14% lymphocytes, 14% monocytes. There are no immature forms and no toxic granulations. His chemistries today show a total CO2 of 52 with a BUN and creatinine of 20 and 0.32, glucose of 88, and a calcium of 8.0 with an albumin of 1.6. Phosphorous is 3.0. Microbiology shows yeast-like organisms from the bronchial cultures that were done during his mucus plugging removal. No organisms are growing as of yet. His chest x-ray today shows the left upper lobe again collapsed, although the right upper lobe is still open. This was done PA and lateral. I think that I probably see a cutoff sign at the left lower lobe bronchus. He is still undergoing chest vibrational therapy. IMPRESSION: 1. Aspiration pneumonia, right and left side, continuing, now on tube feeds. 2. Empyema on the left side, resolved, grew Pseudomonas and anaerobe. 3. Mucus plugging and consolidation of the left lung, improved after bronchoscopy but returning into the left lower lobe. 4. Protein calorie malnutrition. 5. Right pleural effusion, resolved. 6. Thrombocytopenia, resolved. 7. Hypotension, intermittent. 8. Hypoxia, continuing. 9. Prior alcohol abuse. 10. Atrial fibrillation with rapid ventricular response, controlled. 11. Hypernatremia, resolved. 12. Entrapped lower lobe with costophrenic angle, probably continuing. 13. Underlying sepsis, probably resolved. 14. Hypoalbuminemia. PLAN/DISCUSSION: I am again concerned about his mucus plugging. The upper lobe is expanded and hopefully we can get the lower lobe back open with vibrational therapy. He just does not generate much cough, which is surprising as he is able to stand up and take steps. He is quite cachectic, however. The mainstay of his therapy is going to be lung expansion therapy and vigorous nursing care in order to keep him upright, sitting up in a chair and use of vibrational therapy. We also have to encourage his incentive spirometry. If we can consistently get his mucus plugging under control, he may or may not be open to a PEG tube for nutrition. Right now his kangaroo tube looks to be in the duodenum. I am very concerned about his very elevated total CO2, which no doubt reflects hypoventilation. I do not think that we need to obtain a blood gas at this time, as we are not going to be intubating him. Diuresis could also very well be contributing to his total CO2 elevations.
[2019-10-19] MEDS ORDERED: DORNASE ALFA 2.5 MG/2.5 ML NEB SCH (20:00)
[2019-10-19] MEDS: RAMELTEON 8 MG TAB (ROZEREM) PO SCH (21:29)
[2019-10-20] VITALS (26 sets, daily range): BP systolic 92–113; BP diastolic 53–70; O2SAT 92–97
[2019-10-20] MEDS: SODIUM CHLORIDE HYPERTONIC 3% 15ML NEB SOL INH SCH ×7 (00:10→23:58)
[2019-10-20] MEDS: LEVALBUTEROL 1.25 MG/0.5 ML CONCENTRATE NEB INH SCH ×7 (00:10→23:57)
[2019-10-20] MEDS: SIMETHICONE 80 MG CHEW TAB NG SCH ×4 (03:00→20:57)
[2019-10-20 04:36] LABS: BASO # 0.1 10^3/uL (0.0-0.2); BASO % 1.4 % (0.0-1.0); EOS # 0.6 10^3/uL (0.0-0.5); HEMATOCRIT 27.6 % (42.0-52.0); HEMOGLOBIN 9.1 g/dl (13.5-17.5); LYMPH # 0.9 10^3/uL (1.5-5.0); LYMPH % 18.5 % (24.0-44.0); MEAN CORPUSCULAR VOLUME 109.1 fl (80.0-96.0); MONO # 0.9 10^3/uL (0.0-0.8); MONO % 19.1 % (0.0-5.0); NEUTROPHILS # 2.4 10^3/uL (1.5-8.5); NEUTROPHILS % 47.8 % (36.0-66.0); PLATELET COUNT, AUTOMATED 171 10^3/uL (150-450); RED BLOOD COUNT 2.53 10^6/uL (4.30-6.10); WHITE BLOOD COUNT 4.9 10^3/uL (4.0-10.0)
[2019-10-20 05:02] LABS: BLOOD UREA NITROGEN 16 MG/DL (7-18); CALCIUM LEVEL 8.3 MG/DL (8.5-10.1); CARBON DIOXIDE LEVEL 44 MEQ/L (21-32); CHLORIDE LEVEL 89 MEQ/L (98-107); GLOMERULAR FILTRATION RATE > 60.0 (>56); GLUCOSE, FASTING 96 MG/DL (70-100); PHOSPHORUS LEVEL 3.5 MG/DL (2.5-4.9); POTASSIUM SERUM 3.5 MEQ/L (3.5-5.1); SODIUM LEVEL 137 MEQ/L (136-145)
[2019-10-20] MEDS: METOPROLOL TART 25 MG TABLET NG SCH ×4 (06:00→17:03)
[2019-10-20] MEDS: DORNASE INHALATION SOLN 1 MG/ML 2.5 ML AMP (J7639 PER 1MG) INH SCH ×2 (07:47→19:57)
[2019-10-20] MEDS: IPRATROPIUM 0.02% SOLN 0.5MG/2.5 ML NEB INH SCH ×4 (07:47→19:57)
[2019-10-20] MEDS: ACETYLCYSTEINE 20% 4 ML VIAL (200MG/ML) INH SCH ×2 (07:48→19:57)
[2019-10-20 08:50] LABS: ALBUMIN 2.1 GM/DL (3.2-5.2)
[2019-10-20] MEDS: traMADol 50 MG TAB PO SCH ×3 (09:00→20:58)
[2019-10-20] MEDS: SENOKOT S TAB PO SCH ×2 (09:00→20:11)
--- NOTE | 2019-10-20 09:02 | REP ---
Clinical: Follow up pneumonia. Technique: PA and lateral. Comparison: 10/19/2019. Findings: Complete opacification of the left hemithorax is now noted suggesting volume loss and/or effusion likely related to the given history of mucus plugging. Diffuse alveolar and interstitial infiltrates involving the right hemithorax are similar to prior examination. Nasogastric tube courses below left hemidiaphragm. Skeletal structures are intact. Evaluation of the mediastinum and cardiac silhouette is limited due to overlying opacities. Impression: 1. Complete opacification of the left hemithorax with associated volume loss. 2. Diffuse right sided alveolar and interstitial infiltrates unchanged. Electronically Signed by Alexsander Marsh MD 10/20/2019 08:54 A
[2019-10-20] MEDS: NEUTRA-PHOS 1.5 GM PACKET NG SCH ×3 (10:19→20:56)
[2019-10-20] MEDS: CHLORHEXIDINE GLUCONATE 0.12 % 15ML UDC (PERIDEX ORAL RINSE) MT SCH ×2 (10:24→20:56)
[2019-10-20] MEDS: PANTOPRAZOLE 40MG INJ (PROTONIX) (C9113) IV SCH (10:24)
[2019-10-20] MEDS: NYSTATIN 100,000 UNITS/GM TOPICAL PWD 15 GM TOP SCH ×2 (10:25→20:57)
[2019-10-20] MEDS: DIGOXIN 0.125 MG TAB NG SCH (10:25)
--- NOTE | 2019-10-20 11:30 | IPN ---
DATE: 10/20/2019 Mr. Weir has again completely opacified his left lung with mucous plugging. Yesterday his left lower lobe was opacified and now both upper and lower lobes are opacified. I am sure there is a mucous plug at the bottom of the left mainstem bronchus occluding both the upper and lower bronchi. His vital signs show a maximum temperature (T max) of 98.2 with a heart rate that ranges between 87 and 102 and is in atrial fibrillation with a respiratory rate of 18-21 without the use of accessory muscles, who is 98-99% saturated now on 8 liters nasal cannula. His blood pressure is ranging between 108/61 to 92/56. His intake and output over the past 24 hours has been recorded as 1800 mL in and 2250 out for a negativity of 370 mL. His urine output has been 2250 mL. Weight is pending today. On physical examination, he has decreased breath sounds and bronchophony throughout the left lung with e to a egophony throughout the left lung. Right lung shows inspiratory rales and rhonchi. Percussion note is full to the diaphragm on the right. Cardiac exam is without murmurs, clicks, gallops or rubs. I cannot feel his point of maximum impulse (PMI). S1, S2 are normal. Abdomen is soft and nontender but firm. Bowel sounds are positive. Extremities show no pretibial edema. No calf tenderness. No differential swelling of the upper extremities. Skin is warm, dry and perfused without cyanosis or mottling, including that of the nail beds and the knees. He has multiple ecchymoses as he has had throughout. Mouth shows his mucous membranes to be pink and moist. Lips and commissures without lesions. There is no thrush. Neck: Neck is supple. There is no jugular venous distention (JVD), no subcutaneous emphysema. Trachea is midline. Eyes show his pupils to be equal and reactive. Extraocular motions intact. Sclerae nonicteric. Neurologic shows II-XII intact along with gross motor and gross sensation intact. Gait is not tested. Psychiatric shows him to be awake and alert, oriented times three with appropriate mood and affect and conversational but quite despondent and frustrated. His white count today is 4.9 with a hemoglobin and hematocrit of 9.1 and 27.6 and a platelet count of 171. Differential shows 47% neutrophils, 18% lymphocytes, 19% monocytes. There are no immature forms, no toxic granulations. Electrolytes show an improvement in the total CO2 down to 44 from 52 yesterday. BUN and creatinine are 16 and 0.3 with a potassium of 3.5 and a sodium of 137. His procalcitonin yesterday came back 0.23 indicating unlikely bacterial infection or sepsis. His chest x-ray today, as noted, shows complete opacification of his left lung. There is a slight bit of aeration in one small segment or subsegment of the lung, probably the lingula. There is a mediastinal shift to the left consistent with a volume loss. There is no subcutaneous emphysema. IMPRESSION: 1. Aspiration pneumonia right and left side, continuing, now on tube feeds. 2. Empyema, left side, resolved which grew Pseudomonas and an anaerobe, drained with a chest tube. 3. Mucous plugging and consolidation of the left lung, recurrent. 4. Protein-calorie malnutrition. 5. Right pleural effusion, resolved. 6. Thrombocytopenia, resolved. 7. Hypotension, intermittent. 8. Hypoxia, continuing. 9. Prior alcohol abuse. 10. Atrial fibrillation with rapid ventricular response, controlled. 11. Hypernatremia, resolved. 12. Entrapped lower lobe at the costophrenic angle, probably continuing. 13. Underlying sepsis, resolved. 14. Hypoalbuminemia. PLAN AND DISCUSSION: I have again informed Mr. Weir of the results of his chest x-ray. I have given him the option of returning to the operating room and undergoing yet another bronchoscopy. I have undertaken with him that so long as he is willing to continue to persist, that I will persist with him and undertake a bronchoscopy. He has consented, and we will take him today at 3 o'clock after stopping his tube feeds and sucking his stomach out of gastric contents. I will again take cultures. The last cultures came back with yeast-like organisms. Anaerobic culture that showed no growth, and the aerobic cultures are still pending.
--- NOTE | 2019-10-20 12:48 | IPNPDOC ---
Text Note Date of Service The patient was seen on 10/20/19. NOTE Subjective: -Doing relatively ok this morning -Was sitting up in chair this morning, down to 8L Objective: VITALS: See Below, Hemodynamically stable and afebrile GENERAL APPEARANCE: Chronically ill-appearing, NAD HEENT: Nasogastric tube in place, HFNC in place LUNGS: No use of assessment muscle, no wheezing, symmetric chest movement, speaking in full sentences, decreased breath sounds throughout the left lung, while right lung had some crackles and rhonchi with better movement HEART: S1, S2 present and rate and rhythm, no tachycardic, no murmurs, EXTREMITIES: No tenderness to palpation, no deformities, no cyanosis, no edema ASSESMENT 59-year-old gentleman, currently being managed aggressively for aspiration PNA s/p 15d of antibiotics, physical deconditioning, hypoxic respiratory failure with course c/b mucus plugging now s/p second bronchoscopy, with ongoing p ulmonary physical therapy on HFNC. #Aspiration PNA in the setting of chronic aspiration with LLL consolidation c/b mucus pulg and L lung collapse - s/p bronchoscopy and clearing of mucus plugs x 2 -Continue chest PT -Cultures from the bronchoscopy are pending. -Prior bronchoscopy yielded Pseudomonas and propionibacterium and anaerobic cocci for which he was treated for a total of 15d -Discontinued levaquin yesterday, continue to monitor fever curve ( He has a total of 15 days of antibiotics since admission) -Zosyn (10/04-10/10), vancomycin(10/17-10/19), Levaquin (10/10-10/17) and Ceftazidime (10/11-10/15) -No leukocytosis, remains afebrile #Bilateral lower extremity edema: In the setting of high intake with hypoalbuminemia in the setting of poor nutritional status with poor oncotic pressure and 3rd spacing. -Now resolved with the use of PRN diuretics (bumex 2 mg and metolazone 2.5 mg) -continue strict I and Os #Anemia 2/2 Malnutrition, following dilation -Stable, s/p one unit of PRBC, monitor daily CBC #Hypoalbuminemia secondary to malnutrition -s/p some repletion, now 2.1 from low 1s -Continue to monitor, may give if diuretics are dosed for assisted diuresis #Nutrition -Tube feeding with NG tube with Jevity -Will need to discontinue NG tube but patient wants it in and is declining PEG at this time #Physical Decondition -Continue PT and OT #Aspiration -He failed cookie swallow -Aspiration precaution -NPO -Nutrition via NG tube ( Kangaroo type) -Once patient continues to improve clinically. Will have speech therapy. Reassess patient. For now, declinign PEG #Severe Protein calorie malnutrition/FTT -BMI has improved since admission. Current BMI is 18.2 kg/m2 ( will continue to monitor) -Ensure protein shake as nutritional supplements -Tube feeding with NG tube with Jevity #Difficulty sleeping -Ramelteon #Afib/RVR - Echo with normal EF and moderate pulmonary hypertension - Follow as per cardiology - assistance appreciated - Digoxin 0.125 daily, continue metoprolol 25 q6h - Discontinued amiodarone on 10/09/19 #Hypophosphatemia -Resolved #Thrombocytopenia secondary to alcohol abuse related bone marrow suppression, severe infection -improved -Will continue to monitor. #Alcohol dependence and abuse No signs of withdrawal #Hypokalemia -Rosolved #Hypoglycemia -Resolved #Elevated TSH - Most likely related to current sickness, Follow up as outpatient #Hypotension -Stable. Continue to monitor #right foot wound - optifoam daily dressing #Jaw cancer -Status post reconstruction # Generalized pain -Tramadol #DVT prophylaxis - Mechanical CODE Status DNI/DNR Dispo: remains in the ICU despite now being on 8L as the risk and frequency of mucus plugging as been high requiring rapid uptitration of O2 and CT surgery interventions. VS,Fishbone, I+O VS, Fishbone, I+O Laboratory Tests 10/20/19 04:19 Vital Signs Date Time Temp Pulse Resp B/P (MAP) Pulse Ox O2 Delivery O2 Flow Rate FiO2 10/20/19 12:00 99.0 99 22 113/67 (82) 90 High Flow Cannula 8.0 10/17/19 01:50 80 I&O- Last 24 Hours up to 6 AM 10/20/19 05:59 Intake Total 1990.0 ml Output Total 2480 ml Balance -490.0 ml SELINA PERRY MD Oct 20, 2019 12:48
[2019-10-20] MEDS ORDERED: LIDOCAINE 2% JELLY 30 ML As Ordered ONE (14:08)
[2019-10-20] MEDS ORDERED: CETACAINE SPRAY 5GM As Ordered ONE (14:08)
[2019-10-20] MEDS ORDERED: LIDOCAINE 1% SDV INJ 30 ML VIAL As Ordered ONE (14:09)
[2019-10-20] MEDS ORDERED: MUPIROCIN 2% OINT 22 GM TUBE As Ordered ONE (14:16)
[2019-10-20] MEDS ORDERED: EPINEPHrine 1MG/10ML SYRINGE 1.5IN As Ordered ONE (15:21)
--- NOTE | 2019-10-20 16:09 | REP ---
Clinical: Mucus plugging Technique: AP portable chest. Comparison: 10/20/2019 Findings: Minimally improved aeration to the left hemithorax is noted in comparison to prior examination. Diffuse bilateral alveolar and interstitial infiltrates are unchanged. Impression: Minimally improved aeration to the left hemithorax. Otherwise stable examination. Electronically Signed by Alexsander Marsh MD 10/20/2019 04:01 P
[2019-10-20] MEDS ORDERED: LIDOCAINE 2% INJ 100 MG/5 ML SDV (FOR ANES.) As Ordered ONE (16:13)
[2019-10-20] MEDS ORDERED: propofoL 200 MG/20 ML VIAL As Ordered ONE (16:13)
[2019-10-20] MEDS ORDERED: ONDANSETRON 4MG/2ML VIAL (J2405) As Ordered ONE (16:13)
[2019-10-20] MEDS ORDERED: HYDROCORTISONE 100 MG/2 ML VIAL (J1720 PER 1) As Ordered ONE (16:13)
[2019-10-20] MEDS ORDERED: SUGAMMADEX SODIUM 500 MG/5 ML VIAL (BRIDION) As Ordered ONE (16:13)
[2019-10-20] MEDS ORDERED: VASOPRESSIN INJ 20 UNITS/ML VIAL As Ordered ONE (16:13)
[2019-10-20] MEDS ORDERED: ROCURONIUM BROMIDE 50 MG/5 ML VIAL As Ordered ONE (16:13)
[2019-10-20] MEDS ORDERED: LR 1,000 ML IV SCH (16:30)
[2019-10-20] MEDS ORDERED: DIGOXIN INJ 0.5 MG/2 ML AMP (J1160) IV STA (20:45)
[2019-10-20] MEDS: RAMELTEON 8 MG TAB (ROZEREM) PO SCH (20:57)
[2019-10-20] MEDS ORDERED: NS 500 ML IV ONE (21:00)
[2019-10-21] VITALS (19 sets, daily range): BP systolic 86–105; BP diastolic 50–66
[2019-10-21] MEDS: METOPROLOL TART 25 MG TABLET NG SCH ×5 (00:33→17:14)
[2019-10-21] MEDS: SIMETHICONE 80 MG CHEW TAB NG SCH ×4 (03:12→21:57)
[2019-10-21] MEDS: SODIUM CHLORIDE HYPERTONIC 3% 15ML NEB SOL INH SCH ×5 (04:01→20:29)
[2019-10-21] MEDS: LEVALBUTEROL 1.25 MG/0.5 ML CONCENTRATE NEB INH SCH ×5 (04:01→20:29)
[2019-10-21 05:09] LABS: BASO % 0.4 % (0.0-1.0); EOS # 0.1 10^3/uL (0.0-0.5); EOS % 1.1 % (0.0-3.0); HEMATOCRIT 27.1 % (42.0-52.0); HEMOGLOBIN 8.8 g/dl (13.5-17.5); LYMPH % 13.3 % (24.0-44.0); MEAN CORPUSCULAR HEMOGLOBIN 36.1 pg (27.0-33.0); MEAN CORPUSCULAR HGB CONC 32.5 g/dl (32.0-36.5); MEAN CORPUSCULAR VOLUME 111.1 fl (80.0-96.0); MONO # 0.9 10^3/uL (0.0-0.8); MONO % 12.1 % (0.0-5.0); NEUTROPHILS # 5.4 10^3/uL (1.5-8.5); NEUTROPHILS % 72.8 % (36.0-66.0); PLATELET COUNT, AUTOMATED 180 10^3/uL (150-450); RED BLOOD COUNT 2.44 10^6/uL (4.30-6.10); WHITE BLOOD COUNT 7.4 10^3/uL (4.0-10.0)
[2019-10-21 05:27] LABS: BLOOD UREA NITROGEN 17 MG/DL (7-18); CARBON DIOXIDE LEVEL 42 MEQ/L (21-32); CHLORIDE LEVEL 90 MEQ/L (98-107); GLOMERULAR FILTRATION RATE > 60.0 (>56); GLUCOSE, FASTING 114 MG/DL (70-100); PHOSPHORUS LEVEL 4.1 MG/DL (2.5-4.9); POTASSIUM SERUM 3.5 MEQ/L (3.5-5.1); SODIUM LEVEL 136 MEQ/L (136-145)
--- NOTE | 2019-10-21 06:01 | ECGEPIP ---
[facility] Test Date: 2019-10-20 Pat Name: FRANK ADLER Department: Room: [place] [id number] Gender: Male [employer] Supervisor: ARNULFO HARE : 1960 Requested By: SACHA Martinez Order Number: [id number] Reading MD: Deedee Silver Measurements Intervals Geronimo Rate: 111 P: MT: 0 QRS: 101 QRSD: 141 T: 60 QT: 351 QTc: 478 Interpretive Statements ATRIAL FIBRILLATION WITH RAPID VENTRICULAR RESPONSE MARKED RIGHT AXIS DEVIATION RIGHT BUNDLE BRANCH BLOCK POSSIBLE RVH ST DEPRESSION, CONSIDER SUBENDOCARDIAL INJURY LPHB and /or old Lateral INFARCT PROLONG QTC CANNOT R/O OLD SEPTAL INFARCT SIMILAR TO 10/06/19 EXCEPT FASTER RATE Electronically Signed on 10-21-2019 6:01:33 EST by Deedee Silver
[2019-10-21] MEDS: IPRATROPIUM 0.02% SOLN 0.5MG/2.5 ML NEB INH SCH ×4 (08:00→20:00)
--- NOTE | 2019-10-21 08:33 | REP ---
Clinical: Follow up pneumonia / mucous plugging. Technique: PA and lateral. Comparison: 10/20/2019. Findings: No significant change from prior examination. Near complete opacification of the left hemithorax is again noted with small amount of aerated left upper lobe appreciated. Patchy air space disease and chronic interstitial changes again noted bilaterally and unchanged. Current examination demonstrates new small right pleural effusion. No pneumothorax. Impression: 1. New small right pleural effusion suspected. 2. Remainder examination including near complete opacification of the left hemithorax and scattered opacities are unchanged. Electronically Signed by Alexsander Marsh MD 10/21/2019 08:24 A
[2019-10-21] MEDS: ACETYLCYSTEINE 20% 4 ML VIAL (200MG/ML) INH SCH ×2 (08:52→20:29)
[2019-10-21] MEDS: CHLORHEXIDINE GLUCONATE 0.12 % 15ML UDC (PERIDEX ORAL RINSE) MT SCH ×2 (10:00→21:55)
[2019-10-21] MEDS: PANTOPRAZOLE 40MG INJ (PROTONIX) (C9113) IV SCH (10:00)
[2019-10-21] MEDS: DIGOXIN 0.125 MG TAB NG SCH (10:00)
[2019-10-21] MEDS: SENOKOT S TAB PO SCH ×2 (10:00→21:57)
[2019-10-21] MEDS: NEUTRA-PHOS 1.5 GM PACKET NG SCH ×3 (10:00→21:56)
[2019-10-21] MEDS: NYSTATIN 100,000 UNITS/GM TOPICAL PWD 15 GM TOP SCH ×2 (10:01→21:57)
[2019-10-21] MEDS: traMADol 50 MG TAB PO SCH ×3 (10:02→21:56)
--- NOTE | 2019-10-21 10:19 | RO ---
DATE OF PROCEDURE: 10/20/2019 PREPROCEDURE DIAGNOSIS: Mucous plugging with complete occlusion of the left main stem bronchus. POSTPROCEDURE DIAGNOSIS: Mucous plugging with complete occlusion of the left main stem bronchus. SURGEON: Dr. Urbina. PROCEDURE: Bronchoscopy, bronchoalveolar lavage and clearing of mucous plugs. ANESTHESIA: PROCEDURE: Under satisfactory single-lumen tube endotracheal intubation, bronchoscope was placed into the tracheobronchial tree. The right side showed some mucous but was essentially clear. The left side trachea prior to entering the right mainstem bronchus had copious amount of mucous. The left mainstem has half way filled with thick mucous which was different from the last bronchoscopy where just the bifurcation of the upper and lower lobe bronchi were filled with mucous. Mucous was suctioned aspirated and bronchoalveolar lavage was undertaken. There was considerable inflammation with bleeding in and around the mucosa and therefore saline was instilled with epinephrine. Pediatric scope was placed and subsegmental bronchi were cleared of secretions. Secretions were sent off for aerobic and anaerobic fungal and TB. Two specimens were taken, one from the trachea and one from the left mainstem bronchus. Patient tolerated the procedure well and left the operating room extubated to the recovery room.
--- NOTE | 2019-10-21 10:46 | IPNPDOC ---
Text Note Date of Service The patient was seen on 10/21/19. NOTE Subjective: Patient is a 59-year-old male who presented to the hospital after being found down for 48 hours. Patient's been in the hospital for a few weeks. Patient had a bronchoscopy with suctioning performed yesterday by Dr. Urbina. Patient is feeling well today. Patient is continuing with chest PT as well as mucolytic nebulizers. Patient says he feels well. Patient continues with tube feeds. Review of systems General: Patient denies fevers HEENT: Patient denies headaches Cardiovascular: Patient denies chest pain Respiratory: Patient denies shortness of breath, cough GI: Patient endorses mild abdominal pain. Extremities: Patient denies swelling or pain in extremities Objective: Vitals: (see below) General: Cachectic appearing male patient lying in bed with NG tube in place and high flow nasal cannula oxygen also in place. HEENT: Normocephalic, atraumatic, moist mucous membranes. Neck: No JVD Cardiac: Irregularly irregular rhythm with a normal rate. No murmurs auscultated Pulm: Clear to auscultation b/l. No wheezing, rhonchi Abd: Mild tenderness in the epigastric area. Ext: No edema or cyanosis. Labs (see below) Images: A chest x-ray performed on 10/21/2019 was reported as new small right pleural effusion suspected, remainder examination including near complete opacification of the left hemithorax and scattered opacities are unchanged. Assessment: Patient is a 59-year-old male presented to the hospital with atrial fibrillation with a rapid ventricular rate and was found down after following for 48 hours. Patient is quite weak patient's weakness is thought to be secondary to aspiration pneumonia and severe protein calorie malnutrition. Plan 1. Aspiration pneumonia in the setting of chronic aspiration with left lower lobe consolidation status post mucous plug and left lung collapse. Patient has had 3 bronchoscopies since being in the hospital for clearing of mucous plugs. Continue chest PT per Dr. Urbina's orders. Continue mucolytic nebulizer treatment per Dr. Urbina's orders. New cultures from the bronchoscopy yesterday are pending. Patient originally grew out Pseudomonas and anaerobic cocci. Patient has had a total of 15 days of antibiotics including Zosyn, vancomycin, Levaquin, and ceftazidime. Patient remains afebrile since 10/17/2019. 2. Bilateral lower extremity edema: This is improved. Patient has hypoalbuminemia which is most likely the cause of his bilateral lower showing me edema. We'll continue with diuretics when needed. Patient appears euvolemic so no diuretics are needed today. We'll continue to monitor. 3. Anemia secondary to malnutrition. We'll continue to follow patient's CBC. 4. Hypoalbuminemia secondary to malnutrition. Patient's albumin is now 2.1 in the low ones. We will order a prealbumin today to see how he is doing for nutritional standpoint. 5. Severe protein calorie malnutrition secondary to decreased oral intake. We are continuing to feeding with NG tube with Jevity. 6. physical decondition: Continue PT and OT. 7. Aspiration: He failed his cookie swallow and will continue to keep him nothing by mouth and given nutrition through NG tube 8. Difficulty sleeping: Continue ramelteon 9. Atrial fibrillation with rapid ventricular rate: Echo showed normal ejection fraction with moderate pulmonary hypertension. We will continue digoxin 0.125 daily and metoprolol 25 every 6 hours for heart rate greater than 110. 10. Hypophosphatemia: Resolved 11. Thrombocytopenia secondary to alcohol abuse related bone marrow suppression, severe infection: This is improved 12. Alcohol dependence and abuse: No signs withdrawal 13. Hypokalemia: Resolved 14. Elevated TSH: Most likely related to current sickness follow as outpatient 15. Hypotension: Stable continue to monitor 16. Right foot wound: Opteform daily dressing 17. Jaw cancer says was retraction. 18. General pain: Tramadol DVT prophy: Mechanical Dispo: Pending improvement of aspiration pneumonia VS,Fishbone, I+O VS, Fishbone, I+O Laboratory Tests 10/21/19 04:55 Vital Signs Date Time Temp Pulse Resp B/P (MAP) Pulse Ox O2 Delivery O2 Flow Rate FiO2 10/21/19 10:02 24 93 NIPPV (BIPAP/CPAP) 10/21/19 10:00 89 10/21/19 08:00 6.0 10/21/19 07:11 99.6 91/54 (66) 10/17/19 01:50 80 I&O- Last 24 Hours up to 6 AM 10/21/19 06:00 Intake Total 1865 ml Output Total 725 ml Balance 1140 ml GME ATTESTATION GME ATTESTATION My faculty preceptor for this patient encounter was physically present during the encounter and was fully available. All aspects of the patient interview, ex amination, medical decision making process, and medical care plan development were reviewed and approved by the faculty preceptor. The faculty preceptor is aware and concurs with the plan as stated in the body of this note and will attest to such by his/her cosignature. ATTENDING NOTE 59-year-old gentleman, currently being managed aggressively for aspiration PNA s/p 15d of antibiotics, physical deconditioning, hypoxic respiratory failure with course c/b mucus plugging now s/p third bronchoscopy on 10/20, with ongoing pulmonary physical therapy on HFNC with plan now being pulmonary toilet with mucolytic followed by chest PT and brief BiPAP. CHAVA WILSON DO Oct 21, 2019 10:46 SELINA PERRY MD Oct 21, 2019 21:31
[2019-10-21] MEDS: DORNASE INHALATION SOLN 1 MG/ML 2.5 ML AMP (J7639 PER 1MG) INH SCH (11:56)
[2019-10-21 12:15] LABS: PREALBUMIN 12.5 MG/DL (20.0-40.0)
[2019-10-21] MEDS ORDERED: LIDOCAINE 1% MDV 20ML VIAL As Ordered ONE (12:58)
--- NOTE | 2019-10-21 15:16 | IPN ---
DATE: 10/21/2019 Nursing staff tells me this morning, he was sleepy all night and was barely responsive. This morning he is much more alert. I suspect that he had to exhale all the anesthetic gastric mixtures. His vital signs show a maximum temperature (T-max) of 99.6, with a heart rate that ranges between 88 and 79, atrial fibrillation with a respiratory rate of 20-23 with the use of his neck accessory muscles, who is now 100% saturated on 5 liters nasal cannula and his blood pressures are ranging between 91/54 to 100/65. His intake and output over the past 24 hours is recorded at 1855 in and 1005 mL out for a positivity of 85 mL. He has put out 1005 mL of urine. Weight today is 57.1 kg compared to 60.2 kg yesterday. On physical examination, he has markedly decreased breath sounds on the left side with E/A egophony. Right side shows coarse rhonchi throughout. Percussion note is full to the diaphragm on the and dull all the way of the chest on the left. Cardiac exam is without murmurs, clicks, gallops or rubs. I cannot feel his point of maximum impulse (PMI). S1 and S2 are normal. Abdomen is soft and nontender but firm. Tube feedings were started last night. Bowel sounds are positive. There is no pretibial edema with no calf tenderness. No differential swelling of the upper extremities. Skin is warm, dry and perfused without cyanosis or mottling including that of the nail beds and knees. He has multiple ecchymoses. Neck is supple. There is no jugular venous distention. No subcutaneous emphysema. Trachea is midline. Mouth shows his mucous membranes to be pink and moist. Lips and commissures are without lesions. There is no thrush. Eyes show his pupils to be equal and reactive. Extraocular movements intact. Sclerae nonicteric. Neurologic shows II-XII intact along with gross motor and gross sensation intact. Gait is not tested. Psychiatric showed him to be awake, alert and able to answer questions this morning. His white count is 7.4 with a hemoglobin and hematocrit of 8.8 and 27.1 respectively, unchanged from yesterday with a platelet count of 180 and stable. Differential shows 72% neutrophils, 13% lymphocytes, 12% monocytes. No immature forms or toxic granulations. His chemistries today show a total CO2 42, which continues to come down surprisingly so. BUN and creatinine are 17 and 0.3 respectively with a glucose of 114 and calcium of 8.0 and a phosphorus of 4.1. His prealbumin is 12.5. His last albumin measured was 2.1 after albumin infusions. His chest x-ray shows his left lung again completely atelectatic and opacified. There is a little bit of aeration probably in the lingula. The remainder of the upper and lower lobes are opacified. I do see primary branch bronchi, which are open on the chest x-ray with air bronchograms. IMPRESSION: 1. Aspiration pneumonia right and left side. Continuing now on tube feeds. 2. Empyema on the left side, resolved, which grew out Pseudomonas with an anaerobe drained with a chest tube. 3. Mucous plugging and consolidation of the left lung, recurrent and continuing. 4. Protein calorie malnutrition. 5. Right pleural effusion, resolved. 6. Thrombocytopenia, resolved. 7. Hypertension, intermittent. 8. Hypoxemia, continuing. 9. Prior alcohol abuse. 10. Atrial fibrillation with rapid ventricular response, controlled. 11. Hypernatremia, resolved. 12. 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 13. Underlying sepsis, for now resolved. 14. Hypoalbuminemia. PLAN/DISCUSSION: He has again plugged off his upper and lower lobes. Findings on yesterday's bronchoscopy revealed very thick secretions. I cannot continue to go back in and undertake bronchoscopy. Further more, the subsegmental bronchial looked to be open at least in the lower lobe with air bronchograms. I will begin postural drainage with a regimen of stopping his tube feeds half hour before the postural drainage and giving him his mucolytics 15 minutes before and placing a vest on him during postural drainage in Trendelenburg. After his postural drainage, we will place a BiPAP on his for 15 minutes. I had a long talk with family today regarding his prognosis. I told them that if he does not open up his lungs, his prognosis is going to be very poor. I have indicated to him and he has indicated to us that we will keep treating him so long as he is willing. Right now, he is very willing and wants to get better. Family is supportive with the patient. Also indicated to the patient that if he wishes to stop treatment, we will also do that per his wishes. He wishes to continue right now.
[2019-10-21] MEDS: ACETAMINOPHEN 325 MG/10.15 ML UDC GT PRN (17:08)
--- NOTE | 2019-10-21 17:32 | REP ---
Procedure: PICC line insertion with Paulo The procedure was performed under the direct supervision of Dr. Singh. The risks and benefits of the procedure were explained to the patient and informed consent was obtained. The right brachial vein was localized using ultrasound guidance. The skin was prepped and draped in a sterile fashion. 2% lidocaine was used as a local anesthetic. Using ultrasound guidance the brachial vein was cannulated and a 0.018 guidewire was inserted and advanced to the SVC using fluoroscopic guidance. The needle was removed and a 5.5 Lithuanian dilator and peel-away sheath was inserted over the guide wire. A 5.5 Lithuanian dual lumen catheter was cut to length of 49 cm. The dilator was removed and the catheter was inserted over the guide wire with the tip ending in the SVC. The peel-away sheath was removed and the catheter was flushed with heparinized saline as per Hospital protocol. The catheter was affixed to the skin and a sterile dressing was applied. The patient tolerated the procedure well and there were no immediate complications. 0.8 minutes of fluoro time was utilized for this procedure. Electronically Signed by CHAVO Martinez 10/21/2019 04:23 P Electronically Signed by Juan Carlos Singh MD 10/21/2019 05:23 P
[2019-10-21] MEDS: RAMELTEON 8 MG TAB (ROZEREM) PO SCH (21:56)
[2019-10-21] MEDS: CETIRIZINE (ZyrTEC) 10 MG TAB PO SCH (21:59)
[2019-10-22] VITALS (15 sets, daily range): BP systolic 90–105; BP diastolic 57–72
[2019-10-22] MEDS: LEVALBUTEROL 1.25 MG/0.5 ML CONCENTRATE NEB INH SCH ×6 (00:02→19:59)
[2019-10-22] MEDS: SODIUM CHLORIDE HYPERTONIC 3% 15ML NEB SOL INH SCH ×6 (00:02→19:59)
[2019-10-22] MEDS: DORNASE INHALATION SOLN 1 MG/ML 2.5 ML AMP (J7639 PER 1MG) INH SCH ×2 (00:02→12:09)
[2019-10-22] MEDS: SIMETHICONE 80 MG CHEW TAB NG SCH ×4 (03:14→21:20)
[2019-10-22] MEDS: ACETAMINOPHEN 325 MG/10.15 ML UDC GT PRN (05:37)
[2019-10-22] MEDS: METOPROLOL TART 25 MG TABLET NG SCH ×4 (06:00→17:41)
[2019-10-22 06:08] LABS: BASO # 0.1 10^3/uL (0.0-0.2); BASO % 1.8 % (0.0-1.0); EOS # 0.7 10^3/uL (0.0-0.5); EOS % 13.7 % (0.0-3.0); HEMATOCRIT 28.5 % (42.0-52.0); HEMOGLOBIN 9.3 g/dl (13.5-17.5); LYMPH # 0.9 10^3/uL (1.5-5.0); LYMPH % 17.3 % (24.0-44.0); MEAN CORPUSCULAR HEMOGLOBIN 36.3 pg (27.0-33.0); MEAN CORPUSCULAR HGB CONC 32.6 g/dl (32.0-36.5); MEAN CORPUSCULAR VOLUME 111.3 fl (80.0-96.0); MONO # 0.9 10^3/uL (0.0-0.8); MONO % 17.3 % (0.0-5.0); NEUTROPHILS # 2.5 10^3/uL (1.5-8.5); NEUTROPHILS % 49.5 % (36.0-66.0); PLATELET COUNT, AUTOMATED 201 10^3/uL (150-450); RED BLOOD COUNT 2.56 10^6/uL (4.30-6.10)
[2019-10-22 06:32] LABS: BLOOD UREA NITROGEN 16 MG/DL (7-18); CALCIUM LEVEL 8.1 MG/DL (8.5-10.1); CARBON DIOXIDE LEVEL 43 MEQ/L (21-32); CHLORIDE LEVEL 91 MEQ/L (98-107); CREATININE FOR GFR 0.21 MG/DL (0.70-1.30); GLOMERULAR FILTRATION RATE > 60.0 (>56); GLUCOSE, FASTING 85 MG/DL (70-100); PHOSPHORUS LEVEL 2.9 MG/DL (2.5-4.9); POTASSIUM SERUM 3.3 MEQ/L (3.5-5.1); SODIUM LEVEL 138 MEQ/L (136-145)
[2019-10-22] MEDS: ACETYLCYSTEINE 20% 4 ML VIAL (200MG/ML) INH SCH ×2 (07:37→19:59)
[2019-10-22] MEDS: IPRATROPIUM 0.02% SOLN 0.5MG/2.5 ML NEB INH SCH ×4 (07:38→19:58)
--- NOTE | 2019-10-22 08:18 | REP ---
Clinical: Follow up pneumonia / mucous plugging. Technique: PA and lateral. Comparison: 10/21/2019. Findings: Findings have progressed and there is now complete opacification of the left hemithorax along with relatively unchanged right-sided alveolar infiltrates and small right pleural effusion. Right PICC line identified with tip in the SVC/right atrium. Nasogastric tube courses below left hemidiaphragm in satisfactory position. Skeletal structures are intact. Impression: Complete opacification of the left hemithorax along with diffuse right-sided air space disease. Electronically Signed by Alexsander Marsh MD 10/22/2019 08:10 A
[2019-10-22] MEDS: PANTOPRAZOLE 40MG INJ (PROTONIX) (C9113) IV SCH (08:48)
[2019-10-22] MEDS: CHLORHEXIDINE GLUCONATE 0.12 % 15ML UDC (PERIDEX ORAL RINSE) MT SCH ×2 (08:48→21:19)
[2019-10-22] MEDS: DIGOXIN 0.125 MG TAB NG SCH (08:49)
[2019-10-22] MEDS: NEUTRA-PHOS 1.5 GM PACKET NG SCH ×3 (08:49→21:21)
[2019-10-22] MEDS: traMADol 50 MG TAB PO SCH ×3 (08:50→21:21)
[2019-10-22] MEDS: SENOKOT S TAB PO SCH ×2 (09:00→21:00)
[2019-10-22] MEDS ORDERED: SODIUM CHLORIDE 0.9% INJ 10 ML SYR IV PRN (09:00)
[2019-10-22] MEDS: NYSTATIN 100,000 UNITS/GM TOPICAL PWD 15 GM TOP SCH ×2 (09:12→21:19)
[2019-10-22] MEDS ORDERED: NEUTRA-PHOS 1.5 GM PACKET NG ONE (10:00)
--- NOTE | 2019-10-22 12:20 | IPNPDOC ---
Text Note Date of Service The patient was seen on 10/22/19. NOTE Subjective: -Doing relatively ok this morning, exhausted Objective: VITALS: See Below, Hemodynamically stable and afebrile GENERAL APPEARANCE: Chronically ill-appearing, NAD HEENT: Nasogastric tube in place, HFNC in place LUNGS: No use of assessment muscle, no wheezing, symmetric chest movement, speaking in full sentences, decreased breath sounds throughout the left lung, while right lung had some crackles and rhonchi with better movement HEART: S1, S2 present and rate and rhythm, no tachycardic, no murmurs, EXTREMITIES: No tenderness to palpation, no deformities, no cyanosis, no edema ASSESMENT 59-year-old gentleman, currently being managed aggressively for aspiration PNA s/p 15d of antibiotics, physical deconditioning, hypoxic respiratory failure with course c/b mucus plugging now s/p third bronchoscopy on 10/20, with ongoing pulmonary physical therapy on HFNC with plan now being pulmonary toilet with mucolytic followed by chest PT and brief BiPAP. #Aspiration PNA in the setting of chronic aspiration with LLL consolidation c/b mucus pulg and L lung collapse -s/p bronchoscopy and clearing of mucus plugs x 3 -Continue mucolytic --> chest PT in Trendelenburg --> BiPAP --> and otherwise HFNC per CT surgery -Cultures from the bronchoscopy thus negative after the 10/06 that were positive for pseudomonas and proprionibacterium -Prior bronchoscopy yielded Pseudomonas and propionibacterium and anaerobic cocci for which he was treated for a total of 15d -Continue to monitor fever curve ( He has a total of 15 days of antibiotics since admission) -Zosyn (10/04-10/10), vancomycin(10/17-10/19), Levaquin (10/10-10/17) and Ceftazidime (10/11-10/15) given frequent mucus plugging that may harbor bacterial growth -No leukocytosis, remains afebrile at this time #Bilateral lower extremity edema: In the setting of high intake with hypoalbuminemia in the setting of poor nutritional status with poor oncotic pressure and 3rd spacing. -Now resolved with the use of PRN diuretics (bumex 2 mg and metolazone 2.5 mg), none today -continue strict I and Os #Anemia 2/2 Malnutrition, following dilation -Stable, s/p one unit of PRBC, monitor daily CBC #Hypoalbuminemia secondary to malnutrition -s/p some repletion, now 2.1 from low 1s -Continue to monitor, may give if diuretics are dosed for assisted diuresis #Nutrition -Tube feeding with NG tube with Jevity -Will need to discontinue NG tube but patient wants it in and is declining PEG at this time #Physical Decondition -Continue PT and OT #Aspiration -He failed cookie swallow -Aspiration precaution -NPO -Nutrition via NG tube ( Kangaroo type) -Once patient continues to improve clinically. Will have speech therapy. Reassess patient. For now, declinign PEG #Severe Protein calorie malnutrition/FTT -BMI has improved since admission. Current BMI is 18.2 kg/m2 ( will continue to monitor) -Ensure protein shake as nutritional supplements -Tube feeding with NG tube with Jevity #Difficulty sleeping -Ramelteon #Afib/RVR - Echo with normal EF and moderate pulmonary hypertension - Follow as per cardiology - assistance appreciated - Digoxin 0.125 daily, continue metoprolol 25 q6h - Discontinued amiodarone on 10/09/19 #Hypophosphatemia -Resolved #Thrombocytopenia secondary to alcohol abuse related bone marrow suppression, severe infection -improved -Will continue to monitor. #Alcohol dependence and abuse No signs of withdrawal, dc benzos #Hypokalemia -Rosolved #Hypoglycemia -Resolved #Elevated TSH - Most likely related to current sickness, Follow up as outpatient #Hypotension -Stable. Continue to monitor #right foot wound - optifoam daily dressing #Jaw cancer -Status post reconstruction # Generalized pain -Tramadol #DVT prophylaxis - Mechanical CODE Status DNI/DNR Dispo: remains in the ICU with CT surgery directing aggressive pulmonary toilet VS,Fishbone, I+O VS, Fishbone, I+O Laboratory Tests 10/22/19 05:51 Vital Signs Date Time Temp Pulse Resp B/P (MAP) Pulse Ox O2 Delivery O2 Flow Rate FiO2 10/22/19 08:50 22 10/22/19 08:49 82 10/22/19 08:00 98.8 98/57 (71) 97 Nasal Cannula 6.0 10/17/19 01:50 80 I&O- Last 24 Hours up to 6 AM 10/22/19 06:00 Intake Total 1650 ml Output Total 225 ml Balance 1425 ml SELINA PERRY MD Oct 22, 2019 08:59
[2019-10-22] MEDS ORDERED: POTASSIUM CHLORIDE 10% LIQ 20 MEQ/15 ML UDC PO ONE (14:00)
--- NOTE | 2019-10-22 14:56 | IPN ---
DATE: 10/22/2019 Mr. Weir is awake and alert and oriented. He states he feels okay. He has been undergoing postural drainage with a therapy vest along with mucolytics. This, however, has not resulted in any clearing of his left lung, which is still completely collapsed and mucus plugged once again. His vital signs show a maximum temperature (Tmax) of 100.3 with a heart rate that ranges between 81 and 92 in atrial fibrillation with a respiratory rate of 20-22 without the use of accessory muscles, who is 97-96% saturated on 4 liters nasal cannula now, and his blood pressures ranging between 99/71 to 98/61. His intake and output for the past 24 hours has been recorded as 1830 in and 425 out for a positivity of 1405 mL. His urine output has been 425 mL. Weight is pending on him today. On physical examination, he has absolutely absent breath sounds on the left side and complete E/A egophony, particularly in the lower lobe. His right lung shows some intermittent rales, but essentially there are normal vesicular sounds. Percussion note is full to the diaphragm on the right, dull all the way up the chest on the left. Cardiac exam is without murmurs, clicks, gallops, or rubs. I cannot feel his point of maximum impulse (PMI). S1 and S2 are normal. He does have a cachectic chest, as I have noted before. It is difficult to perform an adequate cardiac exam. Abdomen is soft and nontender but slightly firm and tympanotic. Bowel sounds are positive. Extremities show no pretibial edema, no calf tenderness. No differential swelling of the upper extremities. Skin is warm, dry, and perfused without cyanosis or mottling, including that of the nail beds and knees. Neck is supple. There is no jugular venous distention. No subcutaneous emphysema. Trachea is midline. Mouth shows his mucous membranes to be pink and moist. Lips and commissures are without lesions. There is no thrush. Eyes show his pupils to be equal and reactive. Extraocular movements intact. Sclerae nonicteric. Neurologic shows II-XII intact along with gross motor and gross sensation intact. Gait is not tested. Psychiatric showed him to be awake, alert and oriented times three with appropriate mood and affect and conversational. His white count today is 5.0 with a hemoglobin and hematocrit of 9.3 and 28.5, and a platelet count of 201 and stable. Differential shows 49% neutrophils, 17% lymphocytes, 17% monocytes. There are no immature forms or toxic granulations. Electrolytes are essentially normal, except for a mild hypokalemia at 3.3. His total CO2 is 45, unchanged over the last three days. BUN and creatinine are 16 and 0.21 with a calcium 8.1 and a phosphorous of 2.9. Prealbumin yesterday was 12.5. Chest x-ray is described above with complete opacification of the left lung. He now has a peripherally inserted central catheter (PICC) line in place. He has maybe some alveolar infiltrates on the right side, but there is a left-sided shift secondary to volume loss. I can no longer see the segmental air bronchograms. No doubt, his tracheobronchial tree is completely filled up. IMPRESSION: 1. Mucous plugging left lung, recurrent and continuing with complete atelectasis of the lung. 2. Aspiration pneumonia right and left side. Continuing now on tube feeds with the tube in the duodenum. 3. Empyema of the left side, resolved, which grew out Pseudomonas with an anaerobe, drained with a chest tube. 4. Protein calorie malnutrition. 5. Right pleural effusion, resolved. 6. Thrombocytopenia, resolved, along with his sepsis. 7. Hypotension, intermittent. 8. Hypoxemia, continuing but improving. 9. Prior alcohol abuse. 10. Atrial fibrillation with rapid ventricular response, controlled. 11. Hypernatremia, resolved. 12. 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 13. Underlying sepsis, now resolved. 14. Hypoalbuminemia, continuing. PLAN/DISCUSSION: We are now in a rather difficult position. I have undertaking a bronchoscopy on him three times, and three times he has re-mucous plugged his mainstem bronchus with complete atelectasis. The last 24 hours, we have been trying postural drainage, which has not yet worked. I have found that if I irritate and tickle his trachea at the cricothyroid cartilage, it will cause him to cough, and I have asked the nurses to try and do that to induce a cough. I have indicated to him that we are almost at the end of the road with regard to our ability to treat him, short of prolonged intubation, I suspect, for at least a week with continued clearing of secretions. I have asked him to reconsider his decision about the intubation or at least think about it. I have indicated to him that we will do whatever he wants to do, but I do not think that the postural drainage is going to give us much sancho over the next 48 hours. He will eventually develop pneumonia in that left lung because of trapped secretions. Right now, he is not septic. I can even envision intermediate accountant, if he were so motivated, this may very well require tracheostomy. I will have to look up his radiation horner, but a tracheostomy may be out of the question because of healing problems because of prior radiation.
[2019-10-22] MEDS: SODIUM CHLORIDE 0.9% INJ 10 ML SYR IV SCH (17:42)
[2019-10-22] MEDS: CETIRIZINE (ZyrTEC) 10 MG TAB PO SCH (21:20)
[2019-10-22] MEDS: RAMELTEON 8 MG TAB (ROZEREM) PO SCH (21:25)
[2019-10-23] VITALS (9 sets, daily range): BP systolic 94–124; BP diastolic 60–78
[2019-10-23] MEDS: SODIUM CHLORIDE HYPERTONIC 3% 15ML NEB SOL INH SCH ×6 (00:04→20:14)
[2019-10-23] MEDS: DORNASE INHALATION SOLN 1 MG/ML 2.5 ML AMP (J7639 PER 1MG) INH SCH ×2 (00:04→11:40)
[2019-10-23] MEDS: LEVALBUTEROL 1.25 MG/0.5 ML CONCENTRATE NEB INH SCH ×6 (00:04→20:14)
[2019-10-23] MEDS: SIMETHICONE 80 MG CHEW TAB NG SCH ×4 (03:35→21:23)
[2019-10-23] MEDS: ACETAMINOPHEN 325 MG/10.15 ML UDC GT PRN ×2 (05:56→14:05)
[2019-10-23] MEDS: METOPROLOL TART 25 MG TABLET NG SCH ×4 (06:00→17:02)
[2019-10-23] MEDS: SODIUM CHLORIDE 0.9% INJ 10 ML SYR IV SCH ×2 (06:06→17:19)
[2019-10-23 06:31] LABS: BASO # 0.1 10^3/uL (0.0-0.2); BASO % 1.5 % (0.0-1.0); EOS # 0.9 10^3/uL (0.0-0.5); EOS % 13.3 % (0.0-3.0); HEMATOCRIT 29.2 % (42.0-52.0); HEMOGLOBIN 9.3 g/dl (13.5-17.5); LYMPH # 1.1 10^3/uL (1.5-5.0); LYMPH % 15.7 % (24.0-44.0); MEAN CORPUSCULAR HEMOGLOBIN 35.5 pg (27.0-33.0); MEAN CORPUSCULAR HGB CONC 31.8 g/dl (32.0-36.5); MEAN CORPUSCULAR VOLUME 111.5 fl (80.0-96.0); MONO # 1.1 10^3/uL (0.0-0.8); MONO % 16.3 % (0.0-5.0); NEUTROPHILS # 3.6 10^3/uL (1.5-8.5); NEUTROPHILS % 52.8 % (36.0-66.0); PLATELET COUNT, AUTOMATED 231 10^3/uL (150-450); RED BLOOD COUNT 2.62 10^6/uL (4.30-6.10); WHITE BLOOD COUNT 6.8 10^3/uL (4.0-10.0)
[2019-10-23 07:03] LABS: BLOOD UREA NITROGEN 12 MG/DL (7-18); CALCIUM LEVEL 8.2 MG/DL (8.5-10.1); CARBON DIOXIDE LEVEL 41 MEQ/L (21-32); CHLORIDE LEVEL 93 MEQ/L (98-107); CREATININE FOR GFR 0.32 MG/DL (0.70-1.30); GLOMERULAR FILTRATION RATE > 60.0 (>56); GLUCOSE, FASTING 110 MG/DL (70-100); PHOSPHORUS LEVEL 3.3 MG/DL (2.5-4.9); POTASSIUM SERUM 3.9 MEQ/L (3.5-5.1); SODIUM LEVEL 136 MEQ/L (136-145)
[2019-10-23] MEDS: ACETYLCYSTEINE 20% 4 ML VIAL (200MG/ML) INH SCH ×2 (07:40→20:14)
[2019-10-23] MEDS: IPRATROPIUM 0.02% SOLN 0.5MG/2.5 ML NEB INH SCH ×4 (07:40→20:00)
--- NOTE | 2019-10-23 08:36 | REP ---
Clinical: Pneumonia. Mucus plugging. Technique: PA and lateral. Comparison: 10/22/2019. Findings: Complete opacification of the left hemithorax and scattered alveolar/interstitial infiltrates involving the right hemithorax are again noted and essentially unchanged. Right PICC line and nasogastric tube are in stable position. Skeletal structures stable. Impression: No significant change from prior examination. Electronically Signed by Alexsander Marsh MD 10/23/2019 08:28 A
[2019-10-23] MEDS: SENOKOT S TAB PO SCH ×2 (09:00→21:00)
[2019-10-23] MEDS: NEUTRA-PHOS 1.5 GM PACKET NG SCH ×3 (09:14→21:23)
[2019-10-23] MEDS: CHLORHEXIDINE GLUCONATE 0.12 % 15ML UDC (PERIDEX ORAL RINSE) MT SCH ×2 (09:14→21:23)
[2019-10-23] MEDS: DIGOXIN 0.125 MG TAB NG SCH (09:15)
[2019-10-23] MEDS: PANTOPRAZOLE 40MG INJ (PROTONIX) (C9113) IV SCH (09:15)
[2019-10-23] MEDS: traMADol 50 MG TAB PO SCH ×3 (09:16→21:23)
[2019-10-23] MEDS: NYSTATIN 100,000 UNITS/GM TOPICAL PWD 15 GM TOP SCH ×2 (09:16→21:24)
--- NOTE | 2019-10-23 14:44 | IPN ---
DATE OF SERVICE: 10/23/2019 Mr. Weir's chest x-ray again shows the lung not to be completely atelectatic and mucus plugged. I saw him earlier this morning and informed him of what today's x-ray had to show. We have now been doing the postural drainage for 2 days without improvement in his lung expansion. I then had a long discussion with him regarding possible ways forward. They range from the most aggressive to the least aggressive from a week-long trial of intubation to maybe even being to a tracheostomy in order to keep his lung free of mucus plugging until he has enough time to increase his muscle mass to increase his effective cough to continuing the same that we are doing. The expectation that it probably will not get better, and he will probably succumb to that or going home with Hospice. At first, Hospice would not accept him because he was requiring too much oxygen, but now with only needing 4-6 liters nasal cannula, he is evidently an acceptable patient for Hospice. I did not want him to make a decision right away after our talk, and I suggested that he think about this for the next few hours. His vital signs show a maximum temperature (Tmax) of 98.8 with a heart rate that ranges between 86 and 89 in atrial fibrillation with a respiratory rate of 20-22 without the use of accessory muscles, who is 92% to 89% saturated on 4-5 liters nasal cannula, and whose blood pressure is ranging between 95/67 to 124/78. His intake and output over the past 24 hours has been recorded as 1675 in and 350 out for a positivity of 1325 mL. He weighs 58.1 kg today compared to 57.1 kg yesterday. On physical examination, his lung shows complete E-A egophony on the left side with bronchophony. Percussion note is dull throughout the entire left lung. Right lung shows breath sounds with occasional rhonchi. Cardiovascular examination: Is without murmurs, clicks, gallops, or rubs. I cannot feel his point of maximum impulse (PMI). S1 and S2 are normal. Abdomen is soft and nontender. Bowel sounds are positive. There is no hepatomegaly and no costovertebral angle (CVA) tenderness. Extremities show 1+ pretibial edema, no calf tenderness. No differential swelling of the upper extremities. Skin is warm, dry, and perfused without cyanosis or mottling, including that of the nail beds and the knees. He has numerous ecchymoses throughout. Neck is supple. There is no jugular venous distention. No subcutaneous emphysema. Trachea is midline. Mouth shows his mucous membranes to be pink and moist. Lips and commissures without lesions. There is no thrush. Eyes show his pupils to be equal and reactive. Extraocular movements intact. Sclerae anicteric. Neurologic shows II-XII intact, along with gross motor and gross sensation intact. Gait is not tested. Psychiatric shows him to be awake, alert, and oriented times three with appropriate mood and affect and conversational. His white count today is 6.8 with a hemoglobin and hematocrit of 9.3 and 29.2, respectively. This is unchanged from yesterday. Platelet count is 231 and stable. Differential shows 52% neutrophils, 15% lymphocytes, 16% monocytes. There are no immature forms or toxic granulations. His electrolytes are essentially normal, except for an elevated total CO2 of 41 which continues to improve each day. I am surprised that it does improve, as his left lung is completely collapsed. BUN and creatinine are 12 with a creatinine of 0.32, a glucose of 110, and a calcium of 8.2. Chest x-ray is described above. IMPRESSION: 1. Mucus plugging left lung, recurrent and continuing with complete atelectasis of the lung. 2. Aspiration pneumonia, right and left side. Continuing now on tube feeds with the tube in the duodenum. 3. Empyema of the left side, resolved, which grew out Pseudomonas with an anaerobe, drained with a chest tube. 4. Protein-calorie malnutrition. 5. Right pleural effusion, resolved. 6. Thrombocytopenia, resolved, along with his sepsis. 7. Hypotension, intermittent. 8. Hypoxemia, continuing but improving. 9. Prior alcohol abuse. 10. Atrial fibrillation with rapid ventricular response, controlled. 11. Hypernatremia, resolved. 12. Entrapped lower lobe in the costophrenic angle left lung, probably continuing. 13. Underlying sepsis, now resolved. 14. Hypoalbuminemia, continuing. PLAN AND DISCUSSION: In followup to my discussion, discussed above, after a few hours, Mr. Weir has decided that he wishes to go the Hospice route. The hospitalists are involved, and they will expedite that decision. 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 However, he does not want to pursue any more aggressive therapy. I do suspect that he has autoregulated himself so much that almost all of his blood flow is now going to his right lung, which explains his continual decrease in total CO2 with better ventilation and gas exchange. I would hope that with Hospice, they would continue to encourage him to cough and even do postural drainage on him. I still do not believe that this is an irreversible problem. AYDIN
--- NOTE | 2019-10-23 16:53 | IPNPDOC ---
Text Note Date of Service The patient was seen on 10/23/19. NOTE Subjective: -Remains clinically stable, afebrile though quite exhausted from the intensive pulmonary toilet. Objective: VITALS: See Below, Hemodynamically stable and afebrile GENERAL APPEARANCE: Chronically ill-appearing, NAD HEENT: Nasogastric tube in place, HFNC in place LUNGS: No use of assessment muscle, no wheezing, symmetric chest movement, speaking in full sentences, persistent decreased breath sounds throughout the left lung, while right lung had some crackles and rhonchi HEART: S1, S2 present and rate and rhythm, no murmurs EXTREMITIES: No tenderness to palpation, no deformities, no cyanosis, no edema ASSESMENT 59-year-old gentleman, currently being managed aggressively for aspiration PNA s/p 15d of antibiotics, physical deconditioning, hypoxic respiratory failure with course c/b mucus plugging now s/p third bronchoscopy on 10/20, with ongoing pulmonary physical therapy on HFNC with with mucolytic followed by chest PT and brief BiPAP with ongoing conversations with Dr. Urbina about the way forward. #Aspiration PNA in the setting of chronic aspiration with LLL consolidation c/b mucus plug and L lung collapse -s/p bronchoscopy and clearing of mucus plugs x 3 -Continue mucolytic --> chest PT in Trendelenburg --> BiPAP --> and otherwise HFNC per CT surgery, as well as tracheal stimulation for induction of expectoration -Cultures from the bronchoscopy thus negative after the 10/06 that were positive for pseudomonas and proprionibacterium -Prior bronchoscopy yielded Pseudomonas and propionibacterium and anaerobic cocci for which he was treated for a total of 15d -Continue to monitor fever curve ( He has a total of 15 days of antibiotics since admission) -Zosyn (10/04-10/10), vancomycin(10/17-10/19), Levaquin (10/10-10/17) and Ceftazidime (10/11-10/15), given frequent mucus plugging that may harbor bacterial growth -No leukocytosis, remains afebrile at this time -There is an ongoing discussion between the patient and Dr. Urbina about the way forward as he has been bronch'd 3 times [address] admission [address] Dr[address] Urbina has asked him to seriously consider the idea of intubation and possible trach though this may be complicated by the prior radiation he received for his malignancy. -Patient this afternoon requested to a HOSPICE CONSULT, now pending #Bilateral lower extremity edema: In the setting of high intake with hypoalbuminemia in the setting of poor nutritional status with poor oncotic pressure and 3rd spacing. -Now resolved with the use of PRN diuretics (bumex 2 mg and metolazone 2.5 mg), none today -continue strict I and Os #Anemia 2/2 Malnutrition, following dilation -Stable, s/p one unit of PRBC, monitor daily CBC #Hypoalbuminemia secondary to malnutrition -s/p some repletion -Continue to monitor, may give if diuretics are dosed for assisted diuresis #Nutrition -Tube feeding with NG tube with Jevity -Will need to discontinue NG tube but patient wants it in and is declining PEG at this time -Low prealbumin on 10/21 in the setting of malnutrition #Physical Decondition -Continue PT and OT #Aspiration -He failed cookie swallow -Aspiration precaution -NPO -Nutrition via NG tube ( Kangaroo type) -Once patient continues to improve clinically. Will have speech therapy. Reassess patient. For now, declinign PEG #Severe Protein calorie malnutrition/FTT -BMI has improved since admission. Current BMI is 18.2 kg/m2 ( will continue to monitor) -Ensure protein shake as nutritional supplements -Tube feeding with NG tube with Jevity #Difficulty sleeping -Ramelteon #Afib/RVR - Echo with normal EF and moderate pulmonary hypertension - Follow as per cardiology - assistance appreciated - Digoxin 0.125 daily, continue metoprolol 25 q6h - Discontinued amiodarone on 10/09/19 #Hypophosphatemia -Resolved #Thrombocytopenia secondary to alcohol abuse related bone marrow suppression, severe infection -improved -Will continue to monitor. #Alcohol dependence and abuse No signs of withdrawal, dc benzos #Hypokalemia -check daily BMP and replete as indicated #Hypoglycemia -Resolved #Elevated TSH - Most likely related to current sickness, Follow up as outpatient #Hypotension -Stable. Continue to monitor #right foot wound - optifoam daily dressing #Jaw cancer -Status post reconstruction # Generalized pain -Tramadol #DVT prophylaxis - Mechanical CODE Status DNI/DNR Dispo: remains in the ICU with CT surgery directing aggressive pulmonary toilet, now considering home with hospice, with pending hospice consult VSRodrigo I+O VS, Rodrigo, I+O Laboratory Tests 10/23/19 06:14 Vital Signs Date Time Temp Pulse Resp B/P (MAP) Pulse Ox O2 Delivery O2 Flow Rate FiO2 10/23/19 06:00 85 103/69 10/23/19 04:00 6.0 10/23/19 04:00 98.8 18 96 High Flow Cannula 10/17/19 01:50 80 I&O- Last 24 Hours up to 6 AM 10/23/19 06:00 Intake Total 1675 ml Output Total 350 ml Balance 1325 ml SELINA PERRY MD Oct 23, 2019 08:08
[2019-10-23] MEDS: CETIRIZINE (ZyrTEC) 10 MG TAB PO SCH (21:23)
[2019-10-24] VITALS: BP 109/72
[2019-10-24] MEDS: DORNASE INHALATION SOLN 1 MG/ML 2.5 ML AMP (J7639 PER 1MG) INH SCH ×3 (00:33→23:27)
[2019-10-24] MEDS: SODIUM CHLORIDE HYPERTONIC 3% 15ML NEB SOL INH SCH ×7 (00:33→23:27)
[2019-10-24] MEDS: LEVALBUTEROL 1.25 MG/0.5 ML CONCENTRATE NEB INH SCH ×7 (00:33→23:27)
[2019-10-24] MEDS: ACETAMINOPHEN 325 MG/10.15 ML UDC GT PRN ×3 (00:34→12:02)
[2019-10-24] MEDS: RAMELTEON 8 MG TAB (ROZEREM) PO SCH ×2 (00:34→22:01)
[2019-10-24 02:00] VITALS: BP 100/58
[2019-10-24] MEDS: SIMETHICONE 80 MG CHEW TAB NG SCH ×4 (02:58→22:02)
[2019-10-24 04:00] VITALS: BP 108/65
[2019-10-24 04:57] LABS: HEMATOCRIT 29.5 % (42.0-52.0); HEMOGLOBIN 9.5 g/dl (13.5-17.5); MEAN CORPUSCULAR HGB CONC 32.2 g/dl (32.0-36.5); MEAN CORPUSCULAR VOLUME 111.7 fl (80.0-96.0); PLATELET COUNT, AUTOMATED 251 10^3/uL (150-450); RED BLOOD COUNT 2.64 10^6/uL (4.30-6.10); WHITE BLOOD COUNT 6.5 10^3/uL (4.0-10.0)
[2019-10-24 05:17] LABS: BLOOD UREA NITROGEN 12 MG/DL (7-18); CALCIUM LEVEL 7.5 MG/DL (8.5-10.1); CARBON DIOXIDE LEVEL 36 MEQ/L (21-32); CHLORIDE LEVEL 98 MEQ/L (98-107); CREATININE FOR GFR 0.28 MG/DL (0.70-1.30); GLOMERULAR FILTRATION RATE > 60.0 (>56); GLUCOSE, FASTING 88 MG/DL (70-100); SODIUM LEVEL 139 MEQ/L (136-145)
[2019-10-24] MEDS: METOPROLOL TART 25 MG TABLET NG SCH ×5 (06:00→23:55)
[2019-10-24] MEDS: SODIUM CHLORIDE 0.9% INJ 10 ML SYR IV SCH ×2 (06:10→17:21)
--- NOTE | 2019-10-24 08:12 | REP ---
Clinical: Mucous plugging. Pneumonia. Technique: PA and lateral. Comparison: 10/23/2019. Findings: The left hemithorax again demonstrates essentially complete opacification with small area of aeration in the left mid lung zone now identified. Right hemithorax demonstrates stable opacities suggesting chronic changes and superimposed infiltrates. Right PICC line with tip in the SVC. Skeletal structures stable. No obvious pneumothorax. Impression: 1. Minimal aeration now identified in the left mid lung zone. 2. No change in the right pleuroparenchymal opacities Electronically Signed by Alexsander Marsh MD 10/24/2019 08:04 A
[2019-10-24] MEDS: IPRATROPIUM 0.02% SOLN 0.5MG/2.5 ML NEB INH SCH ×4 (08:19→20:00)
[2019-10-24] MEDS: ACETYLCYSTEINE 20% 4 ML VIAL (200MG/ML) INH SCH ×2 (08:20→20:00)
--- NOTE | 2019-10-24 08:56 | IPN ---
DATE: 10/24/2019 Agnieszka is seen in intensive care unit (ICU). He has had a long hospitalization that was summarized exhaustively in yesterday's note by Dr. Adrian. Today, Agnieszka is waiting to talk to hospice. I think he has decided to de-escalate his care. I spoke with Dr. Urbina who feels that the patient's only hope for recovery is intubation (probably after tracheostomy), prolonged suctioning, and the patient does not think he wants to go forward with this. He denies chest pain. He is chronically short of breath. No fever. No chills. PHYSICAL EXAMINATION: Afebrile. 101/65. Lungs: Decreased breath sounds. Heart: Regular rhythm. Abdomen: Soft. Nontender. No peripheral edema. LABS: CBC is unchanged. Electrolytes unremarkable. IMPRESSION: Aspiration pneumonia. Chronic aspiration with mucus plugging. Left lung collapse. We are awaiting on patient's decision concerning hospice and de-escalation of care. The patient is medically stable today on his current regimen. If he does not de-escalate his care, I will summarize his medical problems more extensively tomorrow.
[2019-10-24] MEDS: CHLORHEXIDINE GLUCONATE 0.12 % 15ML UDC (PERIDEX ORAL RINSE) MT SCH ×2 (09:31→21:00)
[2019-10-24] MEDS: PANTOPRAZOLE 40MG INJ (PROTONIX) (C9113) IV SCH (09:31)
[2019-10-24] MEDS: DIGOXIN 0.125 MG TAB NG SCH (09:32)
[2019-10-24] MEDS: NEUTRA-PHOS 1.5 GM PACKET NG SCH ×3 (09:32→23:35)
[2019-10-24] MEDS: SENOKOT S TAB PO SCH ×2 (09:32→22:01)
[2019-10-24] MEDS: traMADol 50 MG TAB PO SCH ×3 (09:33→22:09)
[2019-10-24] MEDS: NYSTATIN 100,000 UNITS/GM TOPICAL PWD 15 GM TOP SCH ×2 (09:33→21:00)
[2019-10-24 12:00] VITALS: BP 100/61
--- NOTE | 2019-10-24 16:10 | IPN ---
DATE: 10/24/2019 Yesterday morning, I left Mr. Weir with the three choices of aggressive therapy to include prolonged intubation, continuing what we were doing at the present with postural drainage and a therapy vest or going home with hospice. He has had made his decision that he wishes to go home with hospice. He is well aware and well awake, and actually he states that he is feeling fairly good. He is not complaining of shortness of breath and he is now down to 2 liters nasal cannula. In essence, he has auto-pneumonectomized himself. His vital signs show a maximum temperature (Tmax) of 98.9 with a heart rate that ranges between 91-117, atrial fibrillation, respiratory rate of 24 without the use of accessory muscles, who is 95% saturated now on 2 liters nasal cannula, and whose blood pressure is ranging between 100/61-108/65. Intake and output for the past 24 hours has been recorded as 1150 in and 275 out for a positivity of 875 mL. There is now weight on him today. On physical examination, his lungs show complete E-to-A egophony on the left side. Percussion note is dull all on the left side. Right side shows almost normal vesicular sounds. Cardiac exam is without murmurs, clicks, gallops, or rubs with the aforementioned difficulties in auscultating secondary to his cachexia. Abdomen is soft, nontender. Bowel sounds are positive. There is no hepatomegaly. No costovertebral angle (CVA) tenderness. Extremities show no pretibial edema. No calf tenderness. No differential swelling of the upper extremities. Skin is warm, dry, and perfused without cyanosis or mottling, including that of the nail beds and the knees. Neck is supple. There is no jugular venous distention. No subcutaneous emphysema. Trachea is midline. Mouth shows his mucous membranes to be pink and moist. Lips and commissures without lesions. There is no thrush. Eyes show his pupils to be equal and reactive. Extraocular movements intact. Sclerae anicteric. Neurologic shows II-XII intact, along with gross motor and gross sensation intact. Gait is not tested. Psychiatric shows him to be awake, alert, and oriented times three with appropriate mood and affect and conversational. His chest x-ray is every so slightly improved this morning with some more aeration in the left upper lobe, probably the lingula. This is opposed to complete opacification yesterday. He still has a cutoff sign at the left mainstem bronchus. His white count today is 6.5 with hemoglobin and hematocrit of 9.5 and 29.5. Platelet count is 251 and stable. There is no differential. Electrolytes are normal, except for an increased CO2 of 36, which indeed has improved again. BUN and creatinine 12 and 0.28 with glucose of 88 and calcium 7.5. IMPRESSION: 1. Mucus plugging left lung, recurrent and continuing with complete atelectasis of the lung with some improvement today. 2. Aspiration pneumonia right and left side. Continuing now on tube feeds with the tube in the duodenum. 3. Empyema of the left side, resolved, which grew out Pseudomonas with an anaerobe, drained with a chest tube. 4. Protein-calorie malnutrition, resolving with continuous tube feeds. 5. Right pleural effusion, resolved. 6. Thrombocytopenia, resolved, along with sepsis. 7. Hypotension, resolving. 8. Hypoxemia, continuing but improving. 9. Prior alcohol abuse. 10. Atrial fibrillation with rapid ventricular response, controlled. 11. Hypernatremia, resolved. 12. Entrapped lower lobe in the costophrenic angle, probably continuing. 13. Underlying sepsis, now resolved. 14. Hypoalbuminemia, continuing. PLAN AND DISCUSSION: It escapes me why Mr. Weir wishes to give up. As I noted before this, this is an essentially single system disease and indeed his x-ray marginally improved today as did his total CO2. Even with continued postural drainage and aggressive lung expansion therapy, there is a finite hope that this process could resolve prior to the onset of a pneumonia and resolving sepsis. Nonetheless, Mr. Weir is content and intent on going home with hospice. I certainly do not agree with his analysis and his actions. However, I cannot force him to undergo any treatment. Regretfully, he is only [id number] he has survived extensive head and neck cancer with a very acceptable cosmetic result. He is a delightful individual and I am sorry to see him take this course. I am afraid that is he decides and changes his mind in the next week or so that it may be too late to resume intensive therapy. As such, I will withdraw from the case as my surgical services are no longer needed. I have thoroughly enjoyed helping taking care of Mr. Weir. [facility]
[2019-10-24 17:05] VITALS: BP 106/64
[2019-10-24] MEDS: MORPHINE 10MG/0.5ML ORAL CONCENTRATE SOLUTION U/D SL PRN ×2 (18:52→22:01)
[2019-10-24] MEDS ORDERED: IPRATROPIUM 0.5MG/ALBUTEROL 2.5MG INH SOL UD 3ML (DUONEB)(J7620) NEB PRN (21:15)
[2019-10-24 21:50] VITALS: BP 99/66
[2019-10-24] MEDS: CETIRIZINE (ZyrTEC) 10 MG TAB PO SCH (22:02)
[2019-10-25] MEDS: SODIUM CHLORIDE HYPERTONIC 3% 15ML NEB SOL INH SCH ×3 (03:19→11:24)
[2019-10-25] MEDS: LEVALBUTEROL 1.25 MG/0.5 ML CONCENTRATE NEB INH SCH ×3 (03:19→11:24)
[2019-10-25] MEDS: SIMETHICONE 80 MG CHEW TAB NG SCH ×2 (04:35→08:59)
[2019-10-25] MEDS: SODIUM CHLORIDE 0.9% INJ 10 ML SYR IV SCH (04:36)
[2019-10-25] MEDS: METOPROLOL TART 25 MG TABLET NG SCH ×2 (06:00→12:00)
[2019-10-25 06:01] VITALS: BP 98/68
[2019-10-25 07:24] LABS: HEMATOCRIT 28.7 % (42.0-52.0); HEMOGLOBIN 9.6 g/dl (13.5-17.5); MEAN CORPUSCULAR HEMOGLOBIN 36.5 pg (27.0-33.0); MEAN CORPUSCULAR HGB CONC 33.4 g/dl (32.0-36.5); MEAN CORPUSCULAR VOLUME 109.1 fl (80.0-96.0); PLATELET COUNT, AUTOMATED 286 10^3/uL (150-450); RED BLOOD COUNT 2.63 10^6/uL (4.30-6.10)
[2019-10-25] MEDS: IPRATROPIUM 0.02% SOLN 0.5MG/2.5 ML NEB INH SCH ×2 (07:26→11:24)
[2019-10-25] MEDS: ACETYLCYSTEINE 20% 4 ML VIAL (200MG/ML) INH SCH (07:43)
[2019-10-25 07:51] LABS: BLOOD UREA NITROGEN 15 MG/DL (7-18); CALCIUM LEVEL 7.9 MG/DL (8.5-10.1); CARBON DIOXIDE LEVEL 34 MEQ/L (21-32); CHLORIDE LEVEL 99 MEQ/L (98-107); CREATININE FOR GFR 0.31 MG/DL (0.70-1.30); GLOMERULAR FILTRATION RATE > 60.0 (>56); GLUCOSE, FASTING 114 MG/DL (70-100); PHOSPHORUS LEVEL 3.6 MG/DL (2.5-4.9); POTASSIUM SERUM 4.2 MEQ/L (3.5-5.1); SODIUM LEVEL 137 MEQ/L (136-145)
[2019-10-25] MEDS: PANTOPRAZOLE 40MG INJ (PROTONIX) (C9113) IV SCH (08:57)
[2019-10-25] MEDS: traMADol 50 MG TAB PO SCH (08:58)
[2019-10-25] MEDS: DIGOXIN 0.125 MG TAB NG SCH (08:59)
[2019-10-25] MEDS: NYSTATIN 100,000 UNITS/GM TOPICAL PWD 15 GM TOP SCH (09:00)
[2019-10-25] MEDS: NEUTRA-PHOS 1.5 GM PACKET NG SCH (09:00)
[2019-10-25] MEDS: CHLORHEXIDINE GLUCONATE 0.12 % 15ML UDC (PERIDEX ORAL RINSE) MT SCH (09:00)
[2019-10-25] MEDS: SENOKOT S TAB PO SCH (09:00)
[2019-10-25] MEDS: DORNASE INHALATION SOLN 1 MG/ML 2.5 ML AMP (J7639 PER 1MG) INH SCH (11:24)
--- NOTE | 2019-10-25 12:25 | DSES ---
DATE OF ADMISSION: 10/04/2019 DATE OF DISCHARGE: 10/25/2019 PRIMARY CARE PROVIDER: Dr. Layton Olguin CONSULTANTS: Dr. Fer Urbina, pulmonology group, Dr. Wade Yousif. PRINCIPAL DIAGNOSIS: Aspiration pneumonia with chronic aspiration left lower lobe collapse from recurrent mucous plugging, status post bronchoscopy times three, aggressive mucolytic therapy, chest physical therapy, bilevel positive airway pressure (BiPAP) with recurrent obstruction. SECONDARY DIAGNOSES: Protein calorie malnutrition. Bilateral lower extremity edema. Anemia secondary to malnutrition. Tube feedings. Recurrent aspiration. Atrial fibrillation, rapid ventricular response. Electrolyte disturbance including hypokalemia, hypoglycemia, hypophosphatemia. Thrombocytopenia secondary to bone marrow suppression from alcoholism. History of jaw cancer. CODE STATUS: DO NOT RESUSCITATE/DO NOT INTUBATE (DNR/DNI). DISPOSITION: Home on hospice. HISTORY: I picked up Agnieszka Weir's case 2 days before discharge. At that point, he had already decided to go on comfort measures and home with hospice. He has extensive hospital notes that detail his course prior to my assuming his care. I arranged for discharge on hospice care, and he will be discharged today home with hospice seeing him. He is DNR/DNI. His only discharge medications will be: - digoxin 125 mcg by mouth daily - DuoNeb every 6 hours as needed - Ativan 0.5 mg sublingual by mouth every 4 hours as needed - morphine concentrate 40 mg, 1/4 to 1 mL every 2 hours as needed for pain - Levsin 0.125 mcg sublingual every 4 hours as needed for terminal secretions Prognosis is poor. Primary care is through Dr. Layton Olguin. edited: 10/25/2019 1437 tkf MTDD
== END 2019-10-25 13:20 | disposition hospice, home (50) | DRG 208 ==
LOC: M ED 12:40 → M ED INP 15:25 → ENRESERVTM 16:35 → ENRESERVDT 16:35 → ENRESERVTM 17:10 → ENRESERVDT 17:10 → M ICU 18:17 → M PCU 10-12 14:43 → M ICU 10-14 13:52 → M MS5PR 10-24 14:28
PROVIDERS: ADMIT Internal Medicine; ATTEND Family Medicine
PROC: 02HV33Z Insertion of Infusion Device into Superior Vena Cava, Percutaneous Approach (ICD-10-PCS; principal; 2019-10-04)
PROC: 0W9B00Z Drainage of Left Pleural Cavity with Drainage Device, Open Approach (ICD-10-PCS; 2019-10-06)
PROC: 0B9J8ZZ Drainage of Left Lower Lung Lobe, Via Natural or Artificial Opening Endoscopic (ICD-10-PCS; 2019-10-08)
PROC: 5A1945Z Respiratory Ventilation, 24-96 Consecutive Hours (ICD-10-PCS; 2019-10-08)
PROC: 3E0L3GC Introduction of Other Therapeutic Substance into Pleural Cavity, Percutaneous Approach (ICD-10-PCS; 2019-10-10)
PROC: 0B978ZX Drainage of Left Main Bronchus, Via Natural or Artificial Opening Endoscopic, Diagnostic (ICD-10-PCS; 2019-10-17)
PROC: 30233N1 Transfusion of Nonautologous Red Blood Cells into Peripheral Vein, Percutaneous Approach (ICD-10-PCS; 2019-10-17)
PROC: 0B9J8ZZ Drainage of Left Lower Lung Lobe, Via Natural or Artificial Opening Endoscopic (ICD-10-PCS; 2019-10-20)
PROC: 02HV33Z Insertion of Infusion Device into Superior Vena Cava, Percutaneous Approach (ICD-10-PCS; 2019-10-21)
DX: J96.01 Acute respiratory failure with hypoxia (principal); A41.9 Sepsis, unspecified organism; J69.0 Pneumonitis due to inhalation of food and vomit; E43 Unspecified severe protein-calorie malnutrition; J86.9 Pyothorax without fistula; I48.21 Permanent atrial fibrillation; R64 Cachexia; Z68.1 Body mass index [BMI] 19.9 or less, adult; E87.2 Acidosis; J98.11 Atelectasis; J91.8 Pleural effusion in other conditions classified elsewhere; S27.0XXA Traumatic pneumothorax, initial encounter; K56.7 Ileus, unspecified; E87.0 Hyperosmolality and hypernatremia; I42.6 Alcoholic cardiomyopathy; Z51.5 Encounter for palliative care; Z66 Do not resuscitate; I95.9 Hypotension, unspecified; E86.0 Dehydration; F10.20 Alcohol dependence, uncomplicated; D69.6 Thrombocytopenia, unspecified; Z85.818 Personal history of malignant neoplasm of other sites of lip, oral cavity, and pharynx; Z79.899 Other long term (current) drug therapy; Z91.19 Patient's noncompliance with other medical treatment and regimen; R19.7 Diarrhea, unspecified; G89.29 Other chronic pain; Z79.891 Long term (current) use of opiate analgesic; F17.200 Nicotine dependence, unspecified, uncomplicated; I27.29 Other secondary pulmonary hypertension; J41.0 Simple chronic bronchitis; I45.10 Unspecified right bundle-branch block; L27.0 Generalized skin eruption due to drugs and medicaments taken internally; T36.0X5A Adverse effect of penicillins, initial encounter; L97.519 Non-pressure chronic ulcer of other part of right foot with unspecified severity; W18.09XA Striking against other object with subsequent fall, initial encounter; Y92.009 Unspecified place in unspecified non-institutional (private) residence as the place of occurrence of the external cause; F41.9 Anxiety disorder, unspecified; E83.39 Other disorders of phosphorus metabolism; E87.6 Hypokalemia; B96.5 Pseudomonas (aeruginosa) (mallei) (pseudomallei) as the cause of diseases classified elsewhere

== ENCOUNTER → 2020-06-04 | Outpatient (CLI) | payer OTHER ==
[~2020-06-04] MED LIST changes: +ASPI81TA86 PO; +PANT40TA29 PO; -PANT40TA3 PO; +THIA100T7 PO
--- NOTE | 2020-06-11 07:00 | REP ---
CHEST X-RAY: CLINICAL: COPD. TECHNIQUE: PA and lateral COMPARISON: 10/24/19 FINDINGS: The cardiac silhouette and mediastinum are relatively normal. COPD and oligemia is noted bilaterally. Left lower lobe atelectasis/consolidation along with small bilateral pleural reactions (left greater than right) cannot be excluded and may represent acute versus chronic change. IMPRESSION: 1. Evidence for chronic COPD and emphysematous disease. 2. Chronic changes versus small pleural effusions and left lower lobe atelectasis/consolidation. MTDD
== END ==
LOC: M RAD 14:22
PROVIDERS: ATTEND Nurse Practitioner Family
DX: J44.9 Chronic obstructive pulmonary disease, unspecified (principal); D64.9 Anemia, unspecified

== ENCOUNTER → 2020-07-02 | Outpatient (CLI) | payer OTHER ==
--- NOTE | 2020-07-02 11:59 | REP ---
INDICATION: COPD UNSPECIFIED COMPARISON: 10/08/2019 TECHNIQUE: Axial noncontrast images from the thoracic inlet to the upper abdomen with coronal and sagittal reformations. This CT examination was performed using the following dose reduction techniques: Automated exposure control, adjustment of mA and/or kv according to the patient's size, and use of iterative reconstruction technique. FINDINGS: Very mild early emphysematous changes are suggested in the bilateral apices with mild bronchiectasis. There is a small left pleural effusion and adjacent fibroatelectatic changes which may represent chronic sequelae from prior pulmonary process. No further acute consolidation. No obvious significant nodule or mass. The mediastinum demonstrates atherosclerotic changes of thoracic aorta and coronary arteries with mild cardiomegaly. No pericardial effusion. Limited upper abdomen demonstrates normal bilateral adrenal glands. IMPRESSION: 1. Small left pleural effusion and adjacent fibroatelectatic changes which may represent acute versus chronic changes. 2. Mild early emphysematous changes at the bilateral apices and mild bronchiectasis. <Electronically signed by Alexsander Marsh > 07/02/20 [id number]
== END ==
LOC: M RAD 10:41
PROVIDERS: ATTEND Nurse Practitioner Family
DX: J90 Pleural effusion, not elsewhere classified (principal); J44.9 Chronic obstructive pulmonary disease, unspecified

== ENCOUNTER 2020-09-06 17:57 | Inpatient (IN) | payer OTHER ==
[~2020-09-06] VITALS: Ht 182.9 cm; Wt 34.6 kg
[2020-09-06] MEDS ORDERED: FOLI1TAB11 PO (18:22)
[2020-09-06] MEDS ORDERED: PANT40TA29 PO (18:22)
[2020-09-06] MEDS ORDERED: SPIR1CAP INH (18:22)
[2020-09-06 18:57] LABS: BASO % 0.5 % (0.0-1.0); HEMATOCRIT 39.2 % (42.0-52.0); LYMPH % 11.1 % (24.0-44.0); MEAN CORPUSCULAR HEMOGLOBIN 35.4 pg (27.0-33.0); MEAN CORPUSCULAR HGB CONC 33.2 g/dl (32.0-36.5); MEAN CORPUSCULAR VOLUME 106.8 fl (80.0-96.0); MONO # 1.1 10^3/uL (0.0-0.8); NEUTROPHILS # 6.6 10^3/uL (1.5-8.5); NEUTROPHILS % 75.7 % (36.0-66.0); PLATELET COUNT, AUTOMATED 125 10^3/uL (150-450); RED BLOOD COUNT 3.67 10^6/uL (4.30-6.10); WHITE BLOOD COUNT 8.7 10^3/uL (4.0-10.0)
[2020-09-06] MEDS ORDERED: ONDANSETRON 4MG/2ML VIAL IV ONE (19:00)
[2020-09-06] MEDS ORDERED: MORPHINE 4 MG/ML 1ML VIAL/SYRINGE (J2270) IV ONE (19:00)
[2020-09-06] MEDS ORDERED: METOPROLOL TART 50 MG TAB PO ONE (19:00)
[2020-09-06] MEDS ORDERED: ASPIRIN 81 MG CHEW TABLET PO ONE (19:00)
--- NOTE | 2020-09-06 19:01 | REP ---
INDICATION: CHEST PAIN COMPARISON: None. TECHNIQUE: Portable AP view of the chest FINDINGS: Examination is limited by portable technique, underpenetration and poor inspiratory effort. Perihilar and lower lobe opacities are suspected along with possible small bilateral pleural effusions. No pneumothorax. Cardiomegaly cannot be excluded. Skeletal structures demonstrate age-related changes. Surgical clips identified in the bilateral axillary regions. IMPRESSION: Limited by poor inspiratory effort. Bilateral perihilar and lower lobe opacities along with small pleural effusions are suspected. <Electronically signed by Alexsander Marsh > 09/06/20 [id number]
[2020-09-06] MEDS ORDERED: ACET500T15 PO (19:04)
[2020-09-06] MEDS ORDERED: PROAAER10 INH (19:04)
[2020-09-06 19:08] LABS: INR 1.04; PROTHROMBIN TIME 13.8 SECONDS (12.5-14.3)
[2020-09-06] MEDS: METOPROLOL 5 MG/5 ML VIAL IV SCH ×3 (19:21→19:39)
[2020-09-06 19:24] LABS: ALBUMIN 3.1 GM/DL (3.2-5.2); ALT/SGPT 22 U/L (12-78); BILIRUBIN,DIRECT 0.4 MG/DL (0.0-0.2); BILIRUBIN,TOTAL 0.9 MG/DL (0.2-1.0); BLOOD UREA NITROGEN 14 MG/DL (7-18); CALCIUM LEVEL 8.5 MG/DL (8.5-10.1); CARBON DIOXIDE LEVEL 13 MEQ/L (21-32); CHLORIDE LEVEL 91 MEQ/L (98-107); CK-MB VALUE MASS 12.4 NG/ML (<3.6); CPK CREATINE PHOSPHOKINASE 661 U/L (39-308); ETHYL ALCOHOL (ETHANOL) 0.045 % (0.000-0.010); GLOMERULAR FILTRATION RATE > 60.0 (>56); GLUCOSE, FASTING 52 MG/DL (70-100); MB/CK RELATIVE INDEX 1.88 (< OR =4); POTASSIUM SERUM 4.9 MEQ/L (3.5-5.1); SODIUM LEVEL 127 MEQ/L (136-145); TOTAL PROTEIN 6.6 GM/DL (6.4-8.2)
[2020-09-06] MEDS: TIOTROPIUM INHALER/CAPSULE (SPIRIVA) INH SCH (20:00)
[2020-09-06] MEDS ORDERED: PANTOPRAZOLE 40MG TAB (PROTONIX) PO SCH (21:00)
[2020-09-06 21:07] LABS: RSV AMPLIFICATION NEGATIVE (NEGATIVE)
--- NOTE | 2020-09-06 21:19 | REPVR ---
PROCEDURE INFORMATION: Exam: XR Sacrum and Coccyx, 2 or More Views Exam date and time: 09/06/2020 8:35 PM Age: 60 years old Clinical indication: Pain in coccyx area; Additional info: Fall TECHNIQUE: Imaging protocol: XR of the sacrum and coccyx, 2 or more views. COMPARISON: CT ABD/PEL W/IV CONTRAST ONLY 10/04/2019 2:12 PM FINDINGS: Bones/joints: Left femoral medullary aiden with traversing nail extending into the left femoral head. Degenerative disc changes are noted at L4-L5. New bone formation is noted along the ventral aspect of the mid sacrum which is approximately the 9 mm thick consistent with interval healing of a mid to distal sacral fracture since the prior study. There is an angulation of the sacrum at this point of old fracture. Soft tissues: Normal. IMPRESSION: 1. Interval healing of a distal sacral fracture at approximately S4 since 10/04/2019 with proliferative new bone formation along the ventral aspect which is approximately 9 mm thick. Refracture is not excluded. 2. Degenerative disc change at L4-L5. 3. Left femoral medullary aiden with traversing nail in the left hip. Electronically signed by: Jenaro Montes On 09/06/2020 21:19:35 PM
[2020-09-06] MEDS ORDERED: MAALOX 30 ML SUSP *UDC PO PRN (21:30)
[2020-09-06] MEDS ORDERED: ALBUTEROL 90 MCG/ACT 8GM HFA INHALER INH PRN (21:30)
[2020-09-06] MEDS ORDERED: GLUCOSE 4GM CHEW TABLET PO PRN (21:30)
[2020-09-06] MEDS ORDERED: GLUCAGON INJ 1MG VIAL SC PRN (21:30)
[2020-09-06] MEDS ORDERED: LORazepam 2 MG TAB PO PRN (21:30)
[2020-09-06] MEDS ORDERED: MOM 30ML SUSPENSION UDC PO PRN (21:30)
[2020-09-06] MEDS ORDERED: DEXTROSE 50% 50 ML SYRINGE IV PRN (21:30)
--- NOTE | 2020-09-06 21:36 | HPEPDOC ---
[facility] Medical History & Physical Date of Admission Sep 06, 2020 Date of Service: Sep 06, 2020 Other Provider Layton Olguin MD Attending Physician: GUSTABO ACOSTA MD History and Physical TIME OF SERVICE: 937pm CHIEF COMPLAINT: weakness HISTORY OF PRESENT ILLNESS: This 60 yr old M was last admitted in Oct after having a fall and was admitted for management of hypotension 2/2 dehydration, hypoxemic respiratory failure, aspiration PNA, left hydro-pneumothorax and mucus plugging; during that admission he declined intubation and requested to be enrolled in hospice. [place] he graduated from hospice in April. He confirmed that he would like aggressive medical management but would like to remain DNR/DNI Over the last week he has been feeling dizzy and weak; earlier on today he had a fall and hit the right side of his jaw and landed on his bottom. He denied hav ing prodromal chest pain or losing consciousness. He called out to his neighbors who found him lying down on the floor. He was too weak to get up on his own. His ran out of his medications around [place] time and reports being unable to reach his PCP for refills. He reports last consuming alcohol yesterday evening. He also asked me why he was wheezing and denied ever being diagnosed with COPD or Asthma REVIEW OF SYSTEMS: 12-point review of systems negative except as listed in HPI PAST MEDICAL/ SURGICAL HISTORY: Long standing persistent atrial fibrillation Jaw cancer, s/p resection and reconstruction and radiation therapy Chronic pain on chronic narcotics Protein calorie malnutrition Hx of chest tube placement for hydro-pneumothorax Left hip fracture SOCIAL HISTORY: , however, lives alone Uses tobacco Drinks approximately one 15 pack beer beverage per week. FAMILY HISTORY: ALLERGIES: Please see below. HOME MEDICATIONS: Please see below. PHYSICAL EXAMINATION: Vital Signs Date Time Temp Pulse Resp B/P (MAP) Pulse Ox O2 Delivery O2 Flow Rate FiO2 09/06/20 18:12 155 99 09/06/20 18:21 96.5 28 124/87 (99) Room Air GENERAL APPEARANCE: cachectic / NAD HEENT: EOMI / post-surgical scars at right jaw CARDIOVASCULAR: tachycardic / difficult to palpate radial pulses / +2 BLE edema LUNGS: not coughing / equal air entry bilaterally / he has expiratory wheezing ABDOMEN: contour flat MUSCULOSKELETAL: has muscle wasting at extremities INTEGUMENT: radiation induced skin changes visible at neck, upper chest and right jaw / vasculature at right neck is visible / lower legs are cool and purple in color NEUROLOGICAL: speech not dysarthric PSYCHIATRIC: A&Ox 3 /able to understand and follow all commands LABORATORY DATA: 09/06/20 18:46 09/06/20 21:45 09/06/20 18:45: Prothrombin Time 13.8, Prothromb Time International Ratio 1.04 09/06/20 18:46: Immature Granulocyte % (Auto) 0.7, Neutrophils (%) (Auto) 75.7H, Lymphocytes (%) (Auto) 11.1L, Monocytes (%) (Auto) 12.0H, Eosinophils (%) (Auto) 0.0, Basophils (%) (Auto) 0.5, Neutrophils # (Auto) 6.6, Lymphocytes # (Auto) 1.0L, Monocytes # (Auto) 1.1H, Eosinophils # (Auto) 0.0, Basophils # (Auto) 0.0, Nucleated Red Blood Cells % (auto) 0.0, Anion Gap 23H, Glomerular Filtration Rate > 60.0, Calcium Level 8.5, Total Bilirubin 0.9, Direct Bilirubin 0.4H, Aspartate Amino Transf (AST/SGOT) 66H, Alanine Aminotransferase (ALT/SGPT) 22, Alkaline Phosphatase 128H, Total Creatine Kinase 661H, Creatine Kinase MB 12.4H, Creatine Kinase MB Relative Index 1.88, Troponin I 0.10, Total Protein 6.6, Albumin 3.1L, Albumin/Globulin Ratio 0.9, Ethyl Alcohol Level 0.045H 09/06/20 20:23: Coronavirus (COVID-19)(PCR) NEGATIVE, Influenza Type A (RT-PCR) NEGATIVE, Influenza Type B (RT-PCR) NEGATIVE, Respiratory Syncytial Virus (PCR) NEGATIVE IMAGING: Chest xray IMPRESSION: Limited by poor inspiratory effort. Bilateral perihilar and lower lobe opacities along with small pleural effusions are suspected. Sacrum and coccyx xray IMPRESSION: 1. Interval healing of a distal sacral fracture at approximately S4 since 10/04/2019 with proliferative new bone formation along the ventral aspect which is approximately 9 mm thick. Refracture is not excluded. 2. egenerative disc change at L4-L5. 3. Left femoral medullary aiden with traversing nail in the left hip. MICROBIOLOGY: RSV, Influenza A/B and RSV negative / blood cx pending ASSESSMENT: Mr. Weir is a 60 yr old w a hx of jaw cancer, A fib, protein calorie malnutrition, and polysubstance abuse who presented w c/o weakness for 1 week resulting in a fall today; he will be admitted for A fib w RVR, SIRS, Hyponatremia, Hypoglycemia & Rhabdomyolysis. PLAN: 1 A fib w RVR Exacerbation likely 2/2 to missing medications and drinking alcohol Still in RVR despite receiving Metoprolol in the ER EKG (Afib HR160) and trops not c/w acute [place] [id number] Score = 0 = no need for AC Plan: admit to PCU / resume digoxin / f/u BNP, TSH, BNP and Mg 2. Wheezing Possibly 2/2 rapid Afib or undiagnosed COPD (he is a smoker) The limited respiratory panel was negative. Despite the chest xray showing bilateral perihilar and lower lobe opacities, I am not convinced he has PNA because he doesnt have a fever, cough, leucocytosis or bandemia Plan: If his wheezing doesnt improve after his rate is controlled may consider starting tx for acute COPD 3. SIRS Tachycardia and tachypnea are likely reactive and less likely 2/2 an infection Plan: f/u lactic acid and blood cx 4. Hypoglycemia Likely 2/2 poor oral intake Plan: f/u FSBS q4h/ hypoglycemia protocol / bc he is an alcoholic I will order banana bag before giving IVF w dextrose 5. Rhabdomyolysis 2/2 fall Plan: trend CK / f/u Phosp to calculate Haq Rhabdomyolysis Risk Score to predict the risk of severe DAVEY or mortality in patients with rhabdomyolysis 6. Anion gap metabolic acidosis Plan: f/u add on lactic acid , VBG, Urine ketones to r/o co-existing alcoholic and starvation ketoacidosis, 7. Weakness / Falls Likely 2/2 inebriation, rapid afib, hypoglycemia Plan: treat A fib / f/u Phosphorus / PT consult / f/u xray of the jaw 8. Hyponatremia Likely 2/2 Beer potomania and possibly poor PO intake Plan: f/u serum osmol, Uosmol, Mitchell and Uosmo / f/u BMP at 12 after banana bag prior to selecting fluids 9. Suspected PAD/PVD Plan: f/u BLE arterial duplex 10. Bicytopenia Macrocytic Anemia is 2/2 Alcohol abuse Thrombocytopenia is 2/2 reduced thrombopoietin production by the liver in the s etting of alcohol abuse Plan: f/u CBC 11. Alcohol abuse / intoxication Serum ETHO elevated Plan: telemetry / seizure precautions / fall precautions / Ativan per CIWA protocol/ Thiamine 100mg daily, Folic acid 1mg daily, MVI 12. Hepatic pattern of transaminitis 2/2 alcohol abuse Hepatiatis panel done in 2003 was neg His liver US done in 2003 didnt show evidence of liver cirrhosis. Plan: f/u w PCP for surveillance 13. Tobacco abuse He declined a nicotine patch Plan: smoking cessation education 14. Protein calorie malnutrition Pre-albumin 12.5 in oct Plan: day time team may consider grain sacker consult DVT Px w Heparin Dispo: likely home after more than 2 midnights stay Home Medications Scheduled Digoxin (Digoxin) 125 Mcg Tablet, 125 MCG PO QHS Folic Acid (Folic Acid) 1 Mg Tablet, 1 MG PO QHS Pantoprazole Sodium (Pantoprazole Sodium) 40 Mg Tablet.dr, 40 MG PO QHS Tiotropium [place] (Spiriva) 18 Mcg Cap.w.dev, 18 MCG INH QHS Scheduled PRN Acetaminophen (Acetaminophen) 500 Mg Tablet, 1,000 MG PO Q6H PRN for PAIN / FEVER Albuterol Sulfate (Proair Hfa) 8.5 Gm Hfa.aer.ad, 2 PUFF INH Q4H PRN for SHORTNESS OF BREATH Allergies Coded Allergies: No Known Allergies (Verified , 09/08/04) A-FIB/CHADSVASC A-FIB History Current/History of A-Fib/PAF?: Yes Current PO Anticoag Therapy: No Age/Risk Factor Scoring CHADSVASC: CHADSVASC Response (Comments) Value Age Risk Factor Age < 65 years old 0 Gender Risk Factor Male 0 Hx of CHF No 0 Hx of HTN No 0 Hx of Stroke/TIA/or VTE No 0 Hx of Diabetes No 0 Hx of Vascular Disease No 0 Total 0 Treatment Other reason anticoagulant not: low CHADS score GUSTABO ACOSTA MD Sep 06, 2020 21:35
[2020-09-06] MEDS ORDERED: MULTIVITAMIN -ADULT INJECTION 10 ML, THIAMINE INJection 100 MG, FOLIC ACID 1 MG in NS 1... IV ONE (22:00)
[2020-09-06] MEDS ORDERED: METAL LOCK LOOP XX ONE (22:02)
[2020-09-06 22:11] LABS: PARTIAL THROMBOPLASTIN TIME 31.4 SECONDS (24.2-38.5)
[2020-09-06 22:19] LABS: FERRITIN 554 NG/ML (26-388); IRON (FE) 100 UG/DL (65-175); MAGNESIUM LEVEL 2.3 MG/DL (1.8-2.4); NT-PRO BNP 25542 PG/ML (<125); PERCENT SATURATION 48.8 % (19.7-50.0); PHOSPHORUS LEVEL 3.5 MG/DL (2.5-4.9); TOTAL IRON BINDING CAPACITY 205 UG/DL (250-450)
[2020-09-06 22:24] LABS: BLOOD UREA NITROGEN 16 MG/DL (7-18); CALCIUM LEVEL 7.7 MG/DL (8.5-10.1); CARBON DIOXIDE LEVEL 16 MEQ/L (21-32); CHLORIDE LEVEL 93 MEQ/L (98-107); CREATININE FOR GFR 0.78 MG/DL (0.70-1.30); GLOMERULAR FILTRATION RATE > 60.0 (>56); GLUCOSE, FASTING 52 MG/DL (70-100); POTASSIUM SERUM 5.4 MEQ/L (3.5-5.1); SODIUM LEVEL 126 MEQ/L (136-145)
[2020-09-06] MEDS: DIGOXIN 0.125 MG TAB PO SCH (23:11)
[2020-09-06] MEDS ORDERED: methylPREDNISolone 125MG 2ML VIAL IV STA (23:19)
[2020-09-07] VITALS (22 sets, daily range): BP systolic 100–132; BP diastolic 58–84; O2SAT 90–98
--- NOTE | 2020-09-07 00:20 | REPVR ---
PROCEDURE INFORMATION: Exam: CT Head Without Contrast Exam date and time: 09/06/2020 12:09 AM Age: 60 years old Clinical indication: Pain; Headache; Additional info: Fall onto right jaw in PT w HX of jaw cancer / R/O FX TECHNIQUE: Imaging protocol: Computed tomography of the head without contrast. Radiation optimization: All CT scans at this facility use at least one of these dose optimization techniques: automated exposure control; mA and/or kV adjustment per patient size (includes targeted exams where dose is matched to clinical indication); or iterative reconstruction. COMPARISON: CT Head without contrast 10/04/2019 1:59 PM FINDINGS: Brain: There is slight prominence of the peripheral sulci. The petty and white matter is normal. Cerebral ventricles: There is mild prominence of the central ventricular system for age. There is no prominence of the temporal horns. Bones/joints: Unremarkable. No acute fracture. Paranasal sinuses: Visualized sinuses are unremarkable. No fluid levels. Mastoid air cells: Visualized mastoid air cells are well aerated. Soft tissues: Unremarkable. IMPRESSION: 1. Mild atrophic change for age. 2. Otherwise negative noncontrast head CT with resolution of right chronic subdural hygroma since 10/04/2019. Electronically signed by: Jenaro Montes On 09/07/2020 00:20:07 AM
[2020-09-07 00:52] LABS: VENOUS BASE EXCESS -8.1 (-2.0-2.0); VENOUS HCO3 17.6 MEQ/L (23.0-27.0); VENOUS O2 SATURATION 84.1 % (60.0-80.0); VENOUS PARTIAL PRESSURE CO2 37.2 mmHg (38.0-50.0); VENOUS PH 7.294 UNITS (7.330-7.430); VENOUS STANDARD HCO3 17.7 MEQ/L; VENOUS TOTAL CO2 18.8 MEQ/L (24.0-28.0)
[2020-09-07] MEDS ORDERED: LEVALBUTEROL 1.25 MG/0.5 ML CONCENTRATE NEB INH SCH (02:00)
[2020-09-07] MEDS: ACETAMINOPHEN 500 MG TAB PO PRN (02:04)
[2020-09-07 03:07] LABS: APPEARANCE, URINE CLOUDY (CLEAR); BACTERIA, URINE AUTO NEGATIVE (NEGATIVE); BILIRUBIN, URINE AUTO 1+ (NEGATIVE); BLOOD, URINE BLOOD NEGATIVE (NEGATIVE); COLOR, URINE AMBER (YELLOW); GLUCOSE, URINE (UA) AUTO NEGATIVE (NEGATIVE); KETONE, URINE AUTO 1+ mg/dL (NEGATIVE); LEUKOCYTE ESTERASE, URINE AUTO 2+ (NEGATIVE); MUCUS, URINE SMALL (NEGATIVE); NITRITE, URINE AUTO NEGATIVE (NEGATIVE); OSMOLALITY URINE 503 MOSM/KG (500-800); PROTEIN, URINE AUTO 2+ mg/dL (NEGATIVE); RBC, URINE AUTO 6 /HPF (0-3); SQUAMOUS EPITHELIAL CELL UR AU 2 /HPF (0-6); WBC, URINE AUTO 38 /HPF (0-3)
[2020-09-07 03:12] LABS: SODIUM,RANDOM URINE < 10 MEQ/L
[2020-09-07 06:00] LABS: HEMATOCRIT 38.9 % (42.0-52.0); HEMOGLOBIN 12.7 g/dl (13.5-17.5); MEAN CORPUSCULAR HEMOGLOBIN 35.9 pg (27.0-33.0); MEAN CORPUSCULAR HGB CONC 32.6 g/dl (32.0-36.5); MEAN CORPUSCULAR VOLUME 109.9 fl (80.0-96.0); PLATELET COUNT, AUTOMATED 123 10^3/uL (150-450); RED BLOOD COUNT 3.54 10^6/uL (4.30-6.10); WHITE BLOOD COUNT 5.4 10^3/uL (4.0-10.0)
[2020-09-07 06:18] LABS: OSMOLALITY SERUM 276 MOSM/KG (275-295)
[2020-09-07 06:25] LABS: ALBUMIN 2.8 GM/DL (3.2-5.2); ALT/SGPT 24 U/L (12-78); BILIRUBIN,TOTAL 1.2 MG/DL (0.2-1.0); BLOOD UREA NITROGEN 20 MG/DL (7-18); CALCIUM LEVEL 7.8 MG/DL (8.5-10.1); CARBON DIOXIDE LEVEL 17 MEQ/L (21-32); CHLORIDE LEVEL 95 MEQ/L (98-107); CPK CREATINE PHOSPHOKINASE 690 U/L (39-308); CREATININE FOR GFR 0.95 MG/DL (0.70-1.30); GLOMERULAR FILTRATION RATE > 60.0 (>56); GLUCOSE, FASTING 89 MG/DL (70-100); MAGNESIUM LEVEL 2.3 MG/DL (1.8-2.4); POTASSIUM SERUM 5.2 MEQ/L (3.5-5.1); SODIUM LEVEL 128 MEQ/L (136-145); TOTAL PROTEIN 6.1 GM/DL (6.4-8.2)
--- NOTE | 2020-09-07 07:35 | IPNPDOC ---
Date Seen The patient was seen on 09/07/20. Progress Note S: c/o pain in his buttocks s/p fall 6/10 pain scale, pain in jaw 5/10 pain scale. no c/o sob. no palpitations, lightheadedness, dizziness, n/v. O: PE: vitals: see below GENERAL APPEARANCE:cachexia, disheveled, jaw deformity from prior surgery HEENT: no JVDthyromegaly poor dentition moist mm no stridor CARDIOVASCULAR: irregularly irregular S1S2 no S3 no m/r/g LUNGS: diminished with faint expiratory wheezing b/l ABDOMEN:+BS soft nt nd no flud wave no rebound, or guarding EXT: 2+ edema b/l. b/l muscle wasting LABORATORY DATA:see below IMAGING: Chest xray IMPRESSION: Limited by poor inspiratory effort. Bilateral perihilar and lower lobe opacities along with small pleural effusions are suspected. Sacrum and coccyx xray IMPRESSION: 1. Interval healing of a distal sacral fracture at approximately S4 since 10/04/2019 with proliferative new bone formation along the ventral aspect which is approximately 9 mm thick. Refracture is not excluded. 2. egenerative disc change at L4-L5. 3. Left femoral medullary aiden with traversing nail in the left hip. MICROBIOLOGY: RSV, Influenza A/B and RSV negative / blood cx pending ASSESSMENT: Mr. Weir is a 60 yr old w a hx of jaw cancer, A fib, protein calorie malnutrition, and polysubstance abuse admitted s/p fall, acute rhabdomyolysis, chronic hyponatremia, chronic Afib w RVR not on AC, and electrolyte abnormalities. Chronic AFib, admitted for RVR -s/p po metoprolol 50 mg and IV metoprolol -now with [id number] and rate controlled -not on AC Acute Rhabdmyolysis -s/p fall -no acute renal failure -encourage po fluid intake Chronic Hyponatremia -most likely due to beer potomania -serial BMP -no c/o h/a, confusion, or changes in vision/mental status changes Electrolyte abnormalities -due to poor po intake from chronic ETOH abuse -replace to optimized electrolytes -continue on Telemetry Metabolic acidosis -monitor and supportive care Fall -resulting in rhabdomyolysis -PT/OT/ARU screen ETOH abuse -resulting in Fall, electrolyte abn, chronic hyponatremia, transaminitis Transaminitis -due to chronic ETOH abuse Hyperkalemia -due to recent fall -trial of kayexalate -ca gluconate dispo: pending correction of electrolytes 1-2 days, then aru screen. VS, I&O, 24H, [facility] Vital Signs/I&O Vital Signs Date Time Temp Pulse Resp B/P (MAP) Pulse Ox O2 Delivery O2 Flow Rate FiO2 09/07/20 04:00 96 110/76 09/07/20 04:00 96.3 20 96 Room Air I&O- Last 24 Hours up to 6 AM 09/07/20 06:00 Intake Total 1011.2 ml Balance 1011.2 ml Laboratory Data 24H LABS Laboratory Tests 2 09/06/20 18:45: Prothrombin Time 13.8, Prothromb Time International Ratio 1.04, Activated Partial Thromboplast Time 31.4 09/06/20 18:46: Immature Granulocyte % (Auto) 0.7, Neutrophils (%) (Auto) 75.7H, Lymphocytes (%) (Auto) 11.1L, Monocytes (%) (Auto) 12.0H, Eosinophils (%) (Auto) 0.0, Basophils (%) (Auto) 0.5, Neutrophils # (Auto) 6.6, Lymphocytes # (Auto) 1.0L, Monocytes # (Auto) 1.1H, Eosinophils # (Auto) 0.0, Basophils # (Auto) 0.0, Nucleated Red Blo od Cells % (auto) 0.0, Anion Gap 23H, Glomerular Filtration Rate > 60.0, Calcium Level 8.5, Phosphorus Level 3.5, Magnesium Level 2.3, Iron Level 100, Total Iron Binding Capacity 205L, Transferrin % Saturation 48.8, Ferritin 554H, Total Bilirubin 0.9, Direct Bilirubin 0.4H, Aspartate Amino Transf (AST/SGOT) 66H, Alanine Aminotransferase (ALT/SGPT) 22, Alkaline Phosphatase 128H, Total Creatine Kinase 661H, Creatine Kinase MB 12.4H, Creatine Kinase MB Relative Index 1.88, Troponin I 0.10, [id number]-Type Natriuretic Peptide [id number], Total Protein 6.6, Albumin 3.1L, Albumin/Globulin Ratio 0.9, Thyroid Stimulating Hormone (TSH) 4.680H, Ethyl Alcohol Level 0.045H 09/06/20 20:23: Coronavirus (COVID-19)(PCR) NEGATIVE, Influenza Type A (RT-PCR) NEGATIVE, Influenza Type B (RT-PCR) NEGATIVE, Respiratory Syncytial Virus (PCR) NEGATIVE 09/06/20 21:43: Lactic Acid Level 3.8*H 09/06/20 21:45: Anion Gap 17H, Glomerular Filtration Rate > 60.0, Calcium Level 7.7L 09/06/20 21:46: Urine Color JOHANNY, Urine Appearance CLOUDYH, Urine pH 5.0, Urine Specific Hubert 1.030, Urine Protein 2+H, Urine Glucose (Auto)(UA) NEGATIVE, Urine Ketones (Auto) 1+H, Urine Blood NEGATIVE, Urine Nitrite NEGATIVE, Urine Bilirubin 1+H, Urine Urobilinogen 4.0H, Urine Leukocyte Esterase (Auto) 2+H, Urine WBC (Auto) 38H, Urine RBC (Auto) 6H, Urine Hyaline Casts (Auto) 49, Urine Bacteria (Auto) NEGATIVE, Urine Squamous Epithelial Cells 2, Urine Mucus (Auto) SMALL, Urine Sperm (Auto) , Urine Random Osmolality 503, Urine Random Sodium < 10 09/07/20 00:47: Blood Gas Bicarbonate Standard 17.7, Venous Blood pH 7.294L, Venous Blood Partial Pressure CO2 37.2L, Venous Blood Partial Pressure O2 57.0H, Venous Blood Total Carbon Dioxide 18.8L, Venous Blood HCO3 17.6L, Venous Blood Oxygen Saturation 84.1H, Venous Blood Base Excess -8.1L 09/07/20 01:16: Bedside Glucose (Misc Panel) 57L 09/07/20 02:01: Lactic Acid Followup at 4 Hours 2.6*H 09/07/20 02:03: Bedside Glucose (Misc Panel) 61L 09/07/20 04:09: Bedside Glucose (Misc Panel) 91 09/07/20 05:27: Nucleated Red Blood Cells % (auto) 0.0, Anion Gap 16, Glomerular Filtration Rate > 60.0, Osmolality 276, Calcium Level 7.8L, Magnesium Level 2.3, Total Bilirubin 1.2H, Aspartate Amino Transf (AST/SGOT) 69H, Alanine Aminotransferase (ALT/SGPT) 24, Alkaline Phosphatase 125H, Total Creatine Kinase 690H, Total Protein 6.1L, Albumin 2.8L, Albumin/Globulin Ratio 0.8 CBC/BMP Laboratory Tests 09/06/20 18:46 09/06/20 21:45 09/07/20 05:27 Microbiology Microbiology 09/06/20 Blood Culture, Received Pending 09/06/20 Blood Culture, Received Pending MARISEL STACK MD Sep 07, 2020 07:35
[2020-09-07] MEDS: TIOTROPIUM INHALER/CAPSULE (SPIRIVA) INH SCH (07:41)
[2020-09-07] MEDS ORDERED: ACETAMINOPHEN 500 MG TAB PO ONE (07:45)
[2020-09-07] MEDS ORDERED: CALCIUM GLUCONATE 1,000 MG in D5W MINI-BAG PLUS 100 ML IV ONE (07:45)
[2020-09-07] MEDS ORDERED: MORPHINE 2 MG/ML 1ML VIAL (J2270) IV ONE (07:45)
[2020-09-07] MEDS ORDERED: SOD POLYSTYRENE SULFONATE SUSP 15 GM/60 ML UD PO ONE (08:00)
[2020-09-07] MEDS ORDERED: PANTOPRAZOLE 40MG TAB (PROTONIX) PO SCH (09:00)
[2020-09-07] MEDS ORDERED: predniSONE 20 MG TAB PO SCH (09:00)
[2020-09-07] MEDS: SODIUM BICARBONATE 325 MG TAB PO SCH ×4 (10:01→22:19)
[2020-09-07] MEDS: THIAMINE 100 MG TAB PO SCH ×2 (10:01→22:19)
[2020-09-07] MEDS: MULTIVITAMINS/MINERALS THERAP 1 TAB PO SCH (10:01)
[2020-09-07] MEDS: ENOXAPARIN 40MG/0.4ML SYRINGE (J1650 PER 10MG) SC SCH (10:02)
--- NOTE | 2020-09-07 10:28 | REP ---
INDICATION: purple edematous legs with reduced hair / suspect PAD COMPARISON: None. TECHNIQUE: Real time petty scale and color Doppler evaluation of the bilateral lower extremity arterial vasculature using linear high frequency transducer. FINDINGS: There is generalized decreased flow velocities to the bilateral common femoral arteries suggesting upstream pathology possibly involving the aorta and iliac arteries. Of note, there is 20 degrees pressure difference between the right and left brachial arteries. Right KEVIN equals 1.07. Right lower extremity demonstrates mild to moderate mixed atheromatous plaquing through the superficial femoral artery followed by heavily calcified atheromatous plaque through the calf vessels demonstrating reversed flow in the mid to distal posterior tibial artery while the anterior tibial artery and peroneal arteries demonstrate normal flow to the foot. Left KEVIN equals 0.8. Left lower extremity demonstrates mild atheromatous plaquing through the calf vessels without obvious focal areas of occlusion, stenosis or reversed flow. Peak systolic velocities (cm/sec) Common femoral artery: Right 31; Left 31 Profunda femoris: Right 31; Left 28 SFA (proximal): Right 38; Left 35 SFA (mid): Right 29; Left 39 SFA (distal): Right 31; Left 43 Popliteal artery: Right 19; Left 21 YANY (prox.): Right 34; Left 28 Tibioperoneal trunk: Right 21; Left 32 POLISHING MACHINE OPERATOR HELPER (prox.): Right 17; Left 37 POLISHING MACHINE OPERATOR HELPER (distal): Right reversed; Left 36 YANY (distal): Right 31; Left 26 Distal aorta: 34 cm/sec Right common iliac artery: 37 cm/sec Right external iliac artery: 34 cm/sec Left common iliac artery: 42 cm/sec Left external iliac artery: 45 cm/sec IMPRESSION: 1. Moderate atheromatous changes as described above through the bilateral lower extremities. 2. Decreased flow velocities extending from the visualized distal aorta suggests upstream pathology possibly cardiac in nature. Consider CT a evaluation for further investigation. <Electronically signed by Alexsander Marsh > 09/07/20 [id number]
[2020-09-07 10:37] LABS: VITAMIN B12 LEVEL 754 PG/ML (247-911)
[2020-09-07 10:38] LABS: FOLATE > 24.0 NG/ML (>5.4)
[2020-09-07] MEDS: FUROSEMIDE 40MG/4ML VIAL (J1940) IV SCH ×2 (12:46→19:24)
--- NOTE | 2020-09-07 14:20 | REP ---
INDICATION: ARF. COMPARISON: None. TECHNIQUE: Urinary tract sonography. FINDINGS: Scanning at the level of the urinary bladder shows no abnormality. Renal cortical echogenicity pattern is normal bilaterally and contours are smooth. There is no evidence of hydronephrosis, cyst, mass, or calculus in either kidney. The right kidney measures 10.2 x 5.3 x 3.5 cm. Left renal dimensions are 10.3 x 4.4 x 5.4 cm. IMPRESSION: Normal urinary tract sonography. <Electronically signed by Morgan Singh > 09/07/20 [id number]
[2020-09-07] MEDS ORDERED: DEXTROSE 50% 50 ML SYRINGE IV PRN (18:30)
[2020-09-07] MEDS ORDERED: GLUCAGON INJ 1MG VIAL SC PRN (18:30)
[2020-09-07] MEDS ORDERED: GLUCOSE 4GM CHEW TABLET PO PRN (18:30)
--- NOTE | 2020-09-07 18:35 | CR ---
CONSULTATION DATE: 09/07/2020 REASON FOR CONSULTATION: Acute renal failure and congestive heart failure. HISTORY OF PRESENT ILLNESS: Mr. Weir is a 60-year-old gentleman who looks quite older than his stated age and debilitated. He is admitted to [facility] due to weakness and was founds to have atrial fibrillation with rapid ventricular rate. He has developed acute kidney injury and nephrology consultation is requested. The patient is seen on his bedside in the progressive care unit. He reports frequent falls at home due to weakness for the last week or so. He was admitted to [facility] in October this year with multiple complications at that time and has a DNR and DNI in place, though he would like to get all of his acute medical care. PAST MEDICAL/SURGICAL HISTORY: 1. Longstanding atrial fibrillation. 2. Jaw cancer, status post resection, reconstruction, and radiation therapy. 3. Chronic pain on chronic narcotics. 4. Protein-calorie malnutrition. 5. Chest tube place for hydropneumothorax. 6. Left hip fracture. HOME MEDICATIONS: - digoxin 125 mcg daily - folic acid 1 mg daily - pantoprazole 40 mg daily - Spiriva inhaler 18 mcg once a day - Tylenol as needed - Albuterol inhaler as needed ALLERGIES: He has no known drug allergies. PERSONAL AND SOCIAL HISTORY: The patient lives alone, though he states to be . He has chronic history of smoking tobacco and drinks multiple beers every week. FAMILY HISTORY: Non-contributory for this admission. He has no family history of kidney problems. REVIEW OF SYSTEMS: The patient denies any fevers or chills. He reports falls and weakness at home. He has been feeling dizzy. He has a remote history of jaw resection due to cancer. Ear, nose, and throat are unremarkable. Cardiovascular system is significant for atrial fibrillation, lower extremity edema, and hypertension. Respiratory system is significant for prior history of hydropneumothorax for which he required chest tube placement. He denies any cough or hemoptysis now. GI system is significant for decreased appetite and denies any vomiting or diarrhea. system is negative for dysuria or hematuria. Musculoskeletal system significant for frequent falls and generalized weakness. Endocrine system is negative for diabetes or thyroid problems. Hematologic system is negative for any long term acute care registered nurse anticoagulation. PHYSICAL EXAMINATION: VITAL SIGNS: Temperature 98 degrees Fahrenheit, heart rate 90 per minute, respiratory rate 20 per minute. Blood pressure 132/84 mmHg and oxygen saturation 96%. HEAD: Facial deformity due to right side of jaw resection and reconstruction surgery is present. Old scarring on the neck is also present. EARS/NOSE/THROAT: Unremarkable. NECK: Supple and JVD is at least 6-7 cm above the sternal angle. HEART: Sounds are irregular and without a pericardial friction rub. LUNGS: Diminished breath sounds at the bases bilaterally with bibasilar rales. ABDOMEN: Soft, somewhat protuberant, and nontender. Bowel sounds are present. EXTREMITIES: Without any cyanosis or clubbing. There are some superficial minor ulcerations on the lower extremities. He also has edema on both legs. NEUROLOGIC: He is awake and without focal deficit. LABORATORY DATA: WBC count 5.4, hemoglobin 12.7, hematocrit 38.9, platelets 123,000. Sodium 128 today, potassium 5.2, CO2 of 17, BUN 20, and creatinine 0.95. Lactic acid level 2.6 and calcium 7.8. Total protein 6.1 and albumin 2.8. PROBLEMS: 1. Hyponatremia most likely related to congestive heart failure. At present, we will try to diurese him and monitor his electrolytes on a daily basis. 2. Hyperkalemia. Mild hyperkalemia probably related to acute kidney injury. This will also correct with diuresis and no other intervention will be needed. 3. Metabolic acidosis. The patient has already been getting oral sodium bicarbonate supplement and his acidosis is gradually improving. We will continue with the same and recheck his chemistries tomorrow morning. 4. Acute kidney injury superimposed on chronic kidney disease. He has mild chronic kidney disease, if at all, and acute kidney injury is related to rapid atrial fibrillation. He also has slightly elevated lactic acid level. There is no obvious source of infection at present. We will gently diurese him after getting a renal ultrasound and see how he responds. 5. Lactic acidosis. Probably the source of lactic acidosis is hypertension and infection. He had rapid atrial fibrillation, which may have caused decreased perfusion. I would suggest broad-spectrum antibiotic coverage. 6. Rapid atrial fibrillation. His ventricular rate seems reasonably well-controlled now with the digoxin and beta-musa. Thank you for involving me in the care of Mr. Weir. I will follow him along with you.
[2020-09-07] MEDS: DIGOXIN 0.125 MG TAB PO SCH (19:23)
[2020-09-07 20:36] LABS: BLOOD UREA NITROGEN 25 MG/DL (7-18); CALCIUM LEVEL 7.9 MG/DL (8.5-10.1); CARBON DIOXIDE LEVEL 25 MEQ/L (21-32); CHLORIDE LEVEL 93 MEQ/L (98-107); CREATININE FOR GFR 1.19 MG/DL (0.70-1.30); GLOMERULAR FILTRATION RATE > 60.0 (>56); GLUCOSE, FASTING 154 MG/DL (70-100); POTASSIUM SERUM 4.8 MEQ/L (3.5-5.1); SODIUM LEVEL 129 MEQ/L (136-145)
[2020-09-07] MEDS ORDERED: HumaLOG INSULIN (NovoLOG) PER UNIT SC SCH (21:00)
[2020-09-07] MEDS ORDERED: AMIODARONE HCL 150 MG in IV 1 EA IV ONE (22:00)
[2020-09-07] MEDS: FOLIC ACID 1 MG TAB PO SCH (22:19)
[2020-09-08] VITALS (7 sets, daily range): BP systolic 101–137; BP diastolic 60–84
[2020-09-08] MEDS: FUROSEMIDE 40MG/4ML VIAL (J1940) IV SCH ×3 (05:33→20:04)
[2020-09-08] MEDS: ACETAMINOPHEN 500 MG TAB PO PRN ×3 (06:15→20:23)
--- NOTE | 2020-09-08 06:30 | ECGEPIP ---
[facility] - ED Test Date: 2020-09-06 Pat Name: FRANK ADLER Department: Room: [place] [address] Gender: Male Primary Care Md: ty : [id number] Requested By: Ross Todd Order Number: [id number] Reading MD: Ross Coronado Measurements Intervals [place] Rate: 159 P: [place]: 0 QRS: 111 QRSD: 150 T: -21 QT: 315 QTc: 513 Interpretive Statements ATRIAL FIBRILLATION WITH RAPID VENTRICULAR RESPONSE RIGHT AXIS DEVIATION RIGHT BUNDLE BRANCH BLOCK RATE CHANGE COMPARED TO 10/20/19 Electronically Signed on 09-08-2020 6:30:38 EST by Ross Coronado
[2020-09-08] MEDS ORDERED: HumaLOG INSULIN (NovoLOG) PER UNIT SC SCH (07:30)
[2020-09-08] MEDS: TIOTROPIUM INHALER/CAPSULE (SPIRIVA) INH SCH (08:10)
[2020-09-08] MEDS: THIAMINE 100 MG TAB PO SCH ×2 (08:45→20:05)
[2020-09-08] MEDS: MULTIVITAMINS/MINERALS THERAP 1 TAB PO SCH (08:45)
[2020-09-08] MEDS: SODIUM BICARBONATE 325 MG TAB PO SCH (08:45)
[2020-09-08] MEDS: ENOXAPARIN 40MG/0.4ML SYRINGE (J1650 PER 10MG) SC SCH (08:45)
--- NOTE | 2020-09-08 09:39 | IPNPDOC ---
Text Note Date of Service The patient was seen on 09/08/20. NOTE Subjective: Patient seen and examined at bedside. No new medical complaints this morning. He was noted to be in A. fib with RVR this morning. He denied any awareness of palpitations, dizziness, chest pain or shortness of breath. Objective: Vitals: see below GENERAL: Lying comfortably in bed eating breakfast HEENT: Normocephalic, atraumatic. Poor dentition CARDIOVASCULAR: irregularly irregular, +S1S2, no m/r/g LUNGS: Clear to auscultation bilaterally ABDOMEN: +BS soft nt nd no flud wave no rebound, or guarding EXT: 1+ peripheral lower extremity edema LABORATORY DATA:see below ASSESSMENT: Mr. Weir is a 60 yr old w a hx of jaw cancer, chronic A fib not on a/c, chronic hyponatremia, protein calorie malnutrition, and polysubstance abuse admitted s/p fall, with acute rhabdomyolysis and electrolyte abnormalities. #Chronic AFib, RVR - appears to be long standing issue - back in September 2019 was afib/RVR as well - possibly secondary to alcohol withdrawal - possible underlying infection - cellulitis lower extremities -s/p po metoprolol 50 mg and IV metoprolol -now with [id number] and rate controlled -not on AC due to falls and risk of bleed - was in RVR again this morning - dig given early - states he follows with dr. alejandre, but has not had an appointment in over one year #CHF - HFpEF? - last echo September 2019 - continue with diuresis #DAVEY/CKD - renal US unrevealing - follow as per nephrology #Rhabdmyolysis -s/p fall -repeat CK pending #Chronic Hyponatremia - multifactorial - beer potomania and CHF -serial BMP -no c/o h/a, confusion, or changes in vision/mental status changes - follow as per nephrology - assistance appreciated #Electrolyte abnormalities -due to poor po intake from chronic ETOH abuse -resolved - continue to follow and replete as needed #Falls -PT/OT/ARU screen #ETOH abuse -MVI, folate, thiamine #Transaminitis -due to chronic ETOH abuse Dispo: pending clinical improvement, ARU screen, PT/OT VS,Fishbone, I+O VS, Fishbone, I+O Laboratory Tests 09/07/20 19:51 Vital Signs Date Time Temp Pulse Resp B/P (MAP) Pulse Ox O2 Delivery O2 Flow Rate FiO2 09/08/20 08:00 97.0 87 16 101/79 (86) 93 Room Air I&O- Last 24 Hours up to 6 AM 09/08/20 06:00 Intake Total 1300 ml Output Total 900 ml Balance 400 ml CARYL MOSER MD Sep 08, 2020 09:39
[2020-09-08 09:42] LABS: HEMATOCRIT 37.6 % (42.0-52.0); HEMOGLOBIN 12.4 g/dl (13.5-17.5); MEAN CORPUSCULAR HEMOGLOBIN 35.5 pg (27.0-33.0); MEAN CORPUSCULAR VOLUME 107.7 fl (80.0-96.0); PLATELET COUNT, AUTOMATED 139 10^3/uL (150-450); RED BLOOD COUNT 3.49 10^6/uL (4.30-6.10); WHITE BLOOD COUNT 11.3 10^3/uL (4.0-10.0)
[2020-09-08 10:14] LABS: BILIRUBIN,TOTAL 0.6 MG/DL (0.2-1.0); CALCIUM LEVEL 8.1 MG/DL (8.5-10.1); CREATININE FOR GFR 1.38 MG/DL (0.70-1.30); GLOMERULAR FILTRATION RATE 56.3 (>56); POTASSIUM SERUM 4.6 MEQ/L (3.5-5.1); TOTAL PROTEIN 6.1 GM/DL (6.4-8.2)
[2020-09-08 11:34] LABS: DIGOXIN LEVEL 0.7 NG/ML (0.5-2.0)
--- NOTE | 2020-09-08 12:51 | IPN ---
NEPHROLOGY PROGRESS NOTE DATE: 09/08/2020 SUBJECTIVE: Mr. Weir is seen this morning on his bedside. He is sitting in the chair at the time of my visit. He is feeling better today; however, he has recurrent rapid episodes of atrial fibrillation. He has history of chronic atrial fibrillation and has been on digoxin. Now amiodarone 1 dose has been given today. PHYSICAL EXAMINATION: Temperature 97 degrees Fahrenheit, heart rate was earlier 87 and now 160 per minute, respiratory rate 16 per minute. Blood pressure 101/79 mmHg and oxygen saturation 93% on room air. Head: Atraumatic. Jaw deformity due to prior jaw dissection and neck surgeries is unchanged. Neck: Neck veins are prominent and pulsatile. Heart: Irregular and tachycardic. Lungs: With a few basilar rales. Abdomen: Soft and nontender and bowel sounds are normal. Extremities: Without any cyanosis or clubbing. Lower extremity edema is at least 1+ bilaterally. Neurologically: He is awake and without any focal deficit. LABORATORY DATA: Today's labs show WBC count 11.3, hemoglobin 12.4, hematocrit 37.6 and platelets 139. Sodium 130, potassium 4.6, BUN 31, creatinine 1.38, glucose 137 and calcium 8.1. PROBLEMS/PLAN: 1. Hyponatremia: Sodium level has improved up to 130 today. We will continue with gentle diuresis. 2. Hyperkalemia: His potassium level has also improved and is stable now. We will continue to diurese him. 3. Rapid atrial fibrillation and congestive heart failure: His volume status is still somewhat decompensated which is most likely related to rapid atrial fibrillation. He is being treated with digoxin and now amiodarone given today. He will continue diuresis with I.V. Lasix for now. He is not suitable for beta-musa due to hypotension. 4. Lactic acidosis: His acidosis has improved and lactic acid level has not been repeated. We will continue diuresis for now for his decompensated volume status and stop the sodium bicarbonate. I feel lactic acidosis is probably related to hypoperfusion and some infection. I suggest broad spectrum antibiotic for possible cellulitis.
[2020-09-08] MEDS ORDERED: DIGOXIN 0.25 MG TAB PO STA (13:24)
[2020-09-08] MEDS: METOPROLOL TART 25 MG TABLET PO SCH ×2 (13:40→20:05)
--- NOTE | 2020-09-08 15:12 | CR ---
CONSULTATION DATE: 09/08/2020 REASON FOR CONSULTATION: Atrial fibrillation with rapid ventricular response. HISTORY OF PRESENT ILLNESS: Mr. Weir is a 60-year-old man with past medical history of atrial fibrillation, jaw cancer, status post resection and radiation who presented to [facility] due to weakness and fall. He reported a one week history of congestion prior to bringing the patient to the emergency room which he states is unusual for him. He also had noted one week of worsening lower extremity swelling which he states occurs intermittently and resolves typically without intervention. He does report frequent falls at home due to generalized weakness and denies any traumatic injuries. He notes that earlier this year, he was placed on hospice due to his medical conditions and a complicated hospital admission in October of 2019. He reports in April he did graduate from hospice and notes he had recovery of his lung after a hydropneumothorax. He would like to continue with full medical care at this time. He denies having any chest pain or palpitations prior to or during this admission. PAST MEDICAL HISTORY: 1. Chronic atrial fibrillation. 2. Jaw cancer, status post resection, reconstruction, and radiation. 3. Chronic pain. 4. Protein calorie malnutrition. 5. History of hydropneumothorax with chest tube placement. 6. Left hip fracture, status post internal repair fixation. HOME MEDICATIONS: 1. Digoxin 125 mcg daily. 2. Folic acid 1 mg daily. 3. Protonix 40 mg daily. 4. Spiriva inhaler 18 mcg once a day. ALLERGIES: No known drug allergies. SOCIAL HISTORY: Lives alone. Daily tobacco use. Daily alcohol intake of at least two beers per day, although he has admitted to a much higher daily beer intake in the past. FAMILY HISTORY: Noncontributory. PHYSICAL EXAMINATION: VITAL SIGNS: Temperature 97.7 degrees Fahrenheit temporal, heart rate 140s, respiratory rate 16, blood pressure 118/84, saturating 95% on room air. GENERAL: Alert, comfortable, sitting up in bed in no acute distress. HEENT: Normocephalic, atraumatic. Deformity of the right side of the jaw due to prior dissection. Moist mucous membranes. NECK: JVD appears elevated to about 10 cm. LUNGS: Bibasilar rales noted in bilateral lungs. Upper lung horner are clear to auscultation. HEART: Irregularly irregular rhythm and tachycardic. No murmurs appreciated, although difficult to assess due to his tachycardia. ABDOMEN: Soft, nontender, nondistended. Bowel sounds present. EXTREMITIES: No cyanosis. Edema in bilateral lower extremities, 2+ up to the mid-calf. NEURO: No focal deficits appreciated. LABORATORY DATA: White blood cell count 11.3, hemoglobin 12.4, hematocrit 37.6, platelet count 139, sodium 130, potassium 4.6, chloride 92, carbon dioxide 26, BUN 31, creatinine 1.38, glucose 137. Digoxin level 0.7. Telemetry monitoring: Heart rate is sustained in the 140-150 range in atrial fibrillation. ASSESSMENT AND PLAN: Mr. Weir is a 60-year-old male with a history of chronic atrial fibrillation who presented in atrial fibrillation with rapid ventricular response. This could be due to a number of factors including his alcoholism and alcohol withdrawal, or possible upper respiratory infection as he has been congested. He also seems to have some decompensation of his congestive heart failure which is likely secondary to his atrial fibrillation with RVR. He remains asymptomatic from the atrial fibrillation with RVR. He takes digoxin at home and his digoxin level is at the low end of therapeutic at 0.7. He has also received doses of IV and p.o. metoprolol on presentation to the ED on 09/06/2020. He also received a dose of IV amiodarone last night. He continues to have a heart rate sustained in the 140s. We will give him an extra dose of p.o. digoxin 0.25 mg now. We will also start him on metoprolol tartrate 25 mg p.o. b.i.d. with holding parameters as his blood pressure has been on the lower side. Hopefully, this will help control his heart rate better. He is not on any anticoagulation and has a CHADSVASc score of 0. Concerning his decompensated CHF, he is being diuresed with IV Lasix 40 mg q.8 hours. He does have an acute kidney injury with a creatinine of 1.38 and is being seen by the nephrology service as well. Thank you for this consultation. We will continue to follow along with the care of this patient. My faculty preceptor for this patient encounter was physically present during the encounter and was fully available. All aspects of the patient interview, examination, medical decision making process, and medical care plan development were reviewed and approved by the faculty preceptor. The faculty preceptor is aware and concurs with the plan as stated in the body of this note and will attest to such by his/her co-signature. Addendum MD Stephen: Agree with the note above. 60yo ma with chronic AF currently tachycardic and marginally hypotensive. I was asked to see the patient by . With additional single dose of digoxin and slow introduction of metoprolol (only po as iv was poorly tolerated) I expect that his HR will slowly improve. Unfortunately he is not anticoagulated due to ongoing substantial ETOH consumption. His CHADSVASC score is borderline for anticoagulation (1). MTDD
[2020-09-08] MEDS: cefTRIAXone SOD 1 GM in D5W MINI-BAG PLUS 50 ML IV SCH (20:04)
[2020-09-08] MEDS: FOLIC ACID 1 MG TAB PO SCH (20:05)
[2020-09-08] MEDS: DOXYCYCLINE HYCLATE 100MG TABLET PO SCH (20:05)
[2020-09-08] MEDS: DIGOXIN 0.125 MG TAB PO SCH (20:06)
[2020-09-09] VITALS (9 sets, daily range): BP systolic 100–132; BP diastolic 62–92
[2020-09-09] MEDS: FUROSEMIDE 40MG/4ML VIAL (J1940) IV SCH ×3 (04:00→20:30)
[2020-09-09] MEDS: ACETAMINOPHEN 500 MG TAB PO PRN ×2 (04:06→20:32)
[2020-09-09 05:21] LABS: HEMATOCRIT 33.8 % (42.0-52.0); HEMOGLOBIN 11.3 g/dl (13.5-17.5); MEAN CORPUSCULAR HGB CONC 33.4 g/dl (32.0-36.5); MEAN CORPUSCULAR VOLUME 107.6 fl (80.0-96.0); PLATELET COUNT, AUTOMATED 128 10^3/uL (150-450); RED BLOOD COUNT 3.14 10^6/uL (4.30-6.10); WHITE BLOOD COUNT 5.5 10^3/uL (4.0-10.0)
[2020-09-09 05:54] LABS: BLOOD UREA NITROGEN 25 MG/DL (7-18); CALCIUM LEVEL 7.4 MG/DL (8.5-10.1); CARBON DIOXIDE LEVEL 32 MEQ/L (21-32); CHLORIDE LEVEL 93 MEQ/L (98-107); CREATININE FOR GFR 1.04 MG/DL (0.70-1.30); GLOMERULAR FILTRATION RATE > 60.0 (>56); GLUCOSE, FASTING 89 MG/DL (70-100); POTASSIUM SERUM 3.2 MEQ/L (3.5-5.1); SODIUM LEVEL 133 MEQ/L (136-145); T UPTAKE 35 % (33-40); THYROXINE (T4) 5.8 UG/DL (4.5-12.0)
[2020-09-09] MEDS ORDERED: METOPROLOL TART 25 MG TABLET PO SCH (06:00)
[2020-09-09] MEDS: TIOTROPIUM INHALER/CAPSULE (SPIRIVA) INH SCH (07:50)
[2020-09-09] MEDS ORDERED: POTASSIUM CHLORIDE 10 MEQ SR TABLET PO ONE ×2 (08:00→13:00)
[2020-09-09] MEDS: THIAMINE 100 MG TAB PO SCH ×2 (09:54→20:31)
[2020-09-09] MEDS: DOXYCYCLINE HYCLATE 100MG TABLET PO SCH ×2 (09:54→20:30)
[2020-09-09] MEDS: MULTIVITAMINS/MINERALS THERAP 1 TAB PO SCH (09:54)
[2020-09-09] MEDS: ENOXAPARIN 40MG/0.4ML SYRINGE (J1650 PER 10MG) SC SCH (09:55)
--- NOTE | 2020-09-09 10:33 | IPNPDOC ---
Text Note Date of Service The patient was seen on 09/09/20. NOTE Subjective: Patient seen and examined at bedside. No new medical complaints this morning. No acute overnight events reported. He does note a cough productive of clear sputum Objective: Vitals: see below GENERAL: Lying comfortably in bed HEENT: Normocephalic, atraumatic. jaw deformity, poor dentition CARDIOVASCULAR: irregularly irregular, +S1S2, no m/r/g LUNGS: Clear to auscultation bilaterally ABDOMEN: +BS soft nt nd no flud wave no rebound, or guarding EXT: 1+ peripheral lower extremity edema, numerous scabs b/l lower extremity LABORATORY DATA: see below ASSESSMENT: Mr. Weir is a 60 yr old w a hx of jaw cancer, chronic A fib not on a/c, chronic hyponatremia, protein calorie malnutrition, and polysubstance abuse admitted s/p fall, with acute rhabdomyolysis and electrolyte abnormalities. #Chronic AFib, RVR - appears to be long standing issue - back in September 2019 was afib/RVR as well - possibly secondary to alcohol withdrawal - possible underlying infection - cellulitis lower extremities - Cardiology consult appreciated - Currently receiving digoxin and metoprolol #PNA - CT chest noted - sputum cx pending - continue IV abx - ceftriaxone/doxy #CHF - HFpEF? - last echo September 2019 - continue with diuresis #DAVEY/CKD - renal US unrevealing - follow as per nephrology #Rhabdmyolysis -s/p fall #Chronic Hyponatremia - improving - multifactorial - beer potomania and CHF -serial BMP -no c/o h/a, confusion, or changes in vision/mental status changes - follow as per nephrology - assistance appreciated #Electrolyte abnormalities -due to poor po intake from chronic ETOH abuse - continue to follow and replete as needed #Falls -PT/OT/ARU screen #ETOH abuse -MVI, folate, thiamine #Transaminitis -due to chronic ETOH abuse Dispo: pending clinical improvement, ARU screen, PT/OT VS,Fishbone, I+O VS, Fishbone, I+O Laboratory Tests 09/09/20 04:46 Vital Signs Date Time Temp Pulse Resp B/P (MAP) Pulse Ox O2 Delivery O2 Flow Rate FiO2 09/09/20 08:00 97.4 111 18 115/62 (79) 97 Room Air I&O- Last 24 Hours up to 6 AM 09/09/20 06:00 Intake Total 1245 ml Output Total 1425 ml Balance -180 ml CARYL MOSER MD Sep 09, 2020 10:33
[2020-09-09 10:54] LABS: MAGNESIUM LEVEL 1.8 MG/DL (1.8-2.4)
--- NOTE | 2020-09-09 12:40 | REP ---
INDICATION: Pneumonia, pleural effusions. COMPARISON: Comparison CT study of the chest is from July 02, 2020.. TECHNIQUE: Helical scanning is acquired. 3 mm axial images are generated. Coronal and sagittal MPR and coronal MIP images are generated. FINDINGS: Preliminary digital press operator carbon blocks radiograph demonstrates moderate to marked cardiomegaly, increased in size from the June 12 10/31/2019 prior study. There is evidence of bilateral pleural effusion on the press operator carbon blocks views. Axial images demonstrate bilateral pleural effusions right greater than left. There is some compressive atelectasis in the left lower lobe and right lower lobe. There are patchy interstitial infiltrates in the right middle and upper lobe consistent with pneumonia. There is minimal pericardial fluid. Four-chamber cardiomegaly is observed. There is left coronary artery vascular calcification. No hilar or mediastinal mass or adenopathy is observed. Normal adrenal glands. There is evidence of a small gallstone in the gallbladder. There are old rib fracture deformities on the right. No acute bony destructive lesion is seen. There are 2 mild wedge compression deformities in the lower thoracic spine. These are unchanged from the July 02, 2020 study. IMPRESSION: Increased cardiomegaly and bilateral pleural effusions, right greater than left. CHF pattern. There are interstitial patchy infiltrates in the right lung middle and upper lobe consistent with pneumonia. <Electronically signed by Morgan Singh > 09/09/20 [id number]
[2020-09-09] MEDS: METOPROLOL TART 25 MG TABLET PO SCH ×2 (13:03→21:49)
--- NOTE | 2020-09-09 13:53 | IPN ---
PROGRESS NOTE DATE: 09/09/2020 REASON FOR FOLLOWUP: Acute kidney injury and congestive heart failure. Mr. Weir is seen this morning on his bedside. He is still feeling short of breath and reports persistent cough. He denies any nausea or vomiting. PHYSICAL EXAMINATION: Temperature 97.4 degrees Fahrenheit, heart rate 100 per minute, respiratory rate 18 per minute, blood pressure 115/62 mmHg, and oxygen saturation 97% on room air. Head is atraumatic. Old deformity due to jaw resection and reconstruction surgery on his neck with scarring unchanged. His neck veins are prominent. Heart sounds are tachycardiac and irregular in rhythm. Lungs with diminished breath sounds on the right lower half. Abdomen soft and nontender, and bowel sounds are normal. Extremities without any cyanosis or clubbing. Bilateral lower extremity edema is at least 1+. Neurologically, he is awake and at his baseline mentation. Today's labs show WBC count 5.5, hemoglobin 11.3, and hematocrit 33.8. Platelets 128. Sodium 133, potassium 3.2, CO2 of 32, BUN 25, creatinine 1.04. PROBLEMS: 1. Acute kidney injury. Kidney function is improved since yesterday. At this point, we will monitor his renal function on a day basis. 2. Congestive heart failure and pleural effusion. His initial chest x-ray did raise a suspicion for possible pleural effusion. CT scan of chest is being ordered. We will continue to diurese him, as he does have peripheral edema and evidence for volume overload. 3. Hypokalemia, most likely related to diuretic use. Patient is receiving potassium supplement and will give him another dose of potassium later this afternoon and recheck his electrolytes tomorrow. 4. Atrial fibrillation with rapid ventricular rate. He remains in atrial fibrillation with moderately controlled ventricular rate. He remains on digoxin and beta musa. He is also anticoagulated.
[2020-09-09] MEDS: cefTRIAXone SOD 1 GM in D5W MINI-BAG PLUS 50 ML IV SCH (20:30)
[2020-09-09] MEDS: FOLIC ACID 1 MG TAB PO SCH (20:31)
[2020-09-09] MEDS: DIGOXIN 0.125 MG TAB PO SCH (20:31)
[2020-09-10] VITALS: BP 102/76
[2020-09-10] MEDS: FUROSEMIDE 40MG/4ML VIAL (J1940) IV SCH ×3 (04:32→19:58)
[2020-09-10 05:28] LABS: HEMATOCRIT 38.6 % (42.0-52.0); HEMOGLOBIN 13.1 g/dl (13.5-17.5); MEAN CORPUSCULAR HEMOGLOBIN 37.1 pg (27.0-33.0); MEAN CORPUSCULAR HGB CONC 33.9 g/dl (32.0-36.5); MEAN CORPUSCULAR VOLUME 109.3 fl (80.0-96.0); PLATELET COUNT, AUTOMATED 154 10^3/uL (150-450); RED BLOOD COUNT 3.53 10^6/uL (4.30-6.10); WHITE BLOOD COUNT 5.9 10^3/uL (4.0-10.0)
[2020-09-10 05:55] LABS: BLOOD UREA NITROGEN 19 MG/DL (7-18); CALCIUM LEVEL 7.7 MG/DL (8.5-10.1); CARBON DIOXIDE LEVEL 36 MEQ/L (21-32); CHLORIDE LEVEL 93 MEQ/L (98-107); GLOMERULAR FILTRATION RATE > 60.0 (>56); GLUCOSE, FASTING 100 MG/DL (70-100); POTASSIUM SERUM 3.7 MEQ/L (3.5-5.1); SODIUM LEVEL 134 MEQ/L (136-145)
[2020-09-10] MEDS: METOPROLOL TART 25 MG TABLET PO SCH (05:55)
[2020-09-10 07:41] VITALS: BP 126/91
[2020-09-10] MEDS ORDERED: METOPROLOL TART 25 MG TABLET PO ONE (09:00)
[2020-09-10] MEDS ORDERED: METOPROLOL TART 50 MG TAB PO SCH (09:00)
--- NOTE | 2020-09-10 09:26 | IPN ---
PROGRESS NOTE DATE: 09/10/2020 SUBJECTIVE: Agnieszka is seen in the PCU. He goes to [facility] for primary care. He was admitted with atrial fibrillation, rapid ventricular response, has pneumonia being treated with Rocephin and doxycycline, is in congestive heart failure with preserved ejection fraction for which he is being diuresed. He developed acute kidney injury and was followed by nephrology. Renal function is back to baseline. He has chronic hyponatremia, probably beer potomania as well as congestive heart failure. He is not symptomatic from this at all. He has a history of alcohol abuse as an outpatient. He is not having any active withdrawal from this. Overall, he feels better today. He is less short of breath. He is coughing less. PHYSICAL EXAMINATION: VITAL SIGNS: Blood pressure is 126/91, pulse is 90, respiratory rate 18, 92% O2 saturation, afebrile at 98.2 degrees. GENERAL APPEARANCE: Alert, conversant, in no distress. He is status post jaw surgery. LUNGS: Scattered rhonchi and wheezes diffusely. HEART: Regular rate and rhythm, rate around 70. ABDOMEN: Soft, nontender, no masses. EXTREMITIES: No peripheral edema. LABS: White count 5.9, hemoglobin 13.1, platelets 154,000, sodium 134, potassium 3.7, BUN 19, creatinine 0.8, glucose 100. CT of the chest showed infiltrates and congestive heart failure pattern. IMPRESSION: 1. Atrial fibrillation, rapid ventricular response. Rate is under control. He is not anticoagulated due to compliance problems as an outpatient. 2. Congestive heart failure. Continue his IV Lasix. He had a net diuresis of 4 liters over the last 2 days. Would continue with the diuresis watching renal function closely. 3. Hyponatremia, stable, slowly improving, watch this closely on the diuresis. 4. Alcoholism, no sign of alcohol withdrawal. Vitamin replacement has been ordered. 5. Recurrent falls. He has an ARU screen ordered and physical and occupational therapy ordered. 6. Pneumonia, he is on IV Rocephin and Doxycycline which seems adequate. 7. Acute kidney injury, renal function is back to baseline.
[2020-09-10] MEDS: DOXYCYCLINE HYCLATE 100MG TABLET PO SCH ×2 (09:42→19:57)
[2020-09-10] MEDS: ENOXAPARIN 40MG/0.4ML SYRINGE (J1650 PER 10MG) SC SCH (09:42)
[2020-09-10] MEDS: MULTIVITAMINS/MINERALS THERAP 1 TAB PO SCH (09:42)
[2020-09-10 11:52] VITALS: BP 109/70
--- NOTE | 2020-09-10 12:07 | IPN ---
PROGRESS NOTE DATE: 09/10/2020 SUBJECTIVE: Mr. Weir is seen this morning on his bedside. He is feeling better and reports that his cough is slightly better. He has no fever or chills. He has been diuresing reasonably well. CT scan of his chest was done yesterday, which showed a large right pleural effusion and cardiomegaly. A small left pleural effusion was also noticed. Interstitial patchy infiltrates in the right middle and upper lobes consistent with pneumonia. The patient has been on ceftriaxone. OBJECTIVE: VITAL SIGNS: Temperature 98.2 degrees Fahrenheit, heart rate 90 per minute, respiratory rate 18 per minute, blood pressure 126/90 mmHg, and oxygen saturation 92% on room air. INTAKE AND OUTPUT: From yesterday showed total intake 780 and output 3100. His weight is down to 59.8 kg while he weighed 64.2 kg on September 07. He has been negative fluid balance for the last couple of days. HEAD: With old chronic facial deformity related to his right jaw surgery where he had reconstruction. NECK: Veins are prominent. HEART: Sounds are regular. LUNGS: With diminished breath sounds right side. ABDOMEN: Soft and nontender. Bowel sounds normal. EXTREMITIES: Without any cyanosis or clubbing. Lower extremity edema is still 1+ on the right leg and 2+ on the left. NEUROLOGIC: He is awake, alert, and oriented x3. LABORATORY DATA: Today's labs show WBC count 5.2, hemoglobin 13.1, hematocrit 38.6, platelets 154.000. Sodium 134, potassium 3.7, CO2 of 36, BUN 19, and creatinine 0.8. PROBLEMS: 1. Acute kidney injury. Kidney function has returned back to normal. He has good urine output. 2. Congestive heart failure. Volume status remains decompensated. The patient is responding to diuretic and we will continue with current dose of Lasix. He has been in a negative fluid balance. 3. Pneumonia. The patient is being treated with doxycycline and ceftriaxone. He seems to be improving. 4. Right pleural effusion most likely related to congestive heart failure, pneumonia, and acute kidney injury. At this point, we will continue diuresing him. His imaging should be repeated in a few days. 5. Hyperkalemia. Potassium level has improved and we will continue with potassium supplement as he is being diuresed.
[2020-09-10] MEDS ORDERED: POTASSIUM CHLORIDE 10 MEQ SR TABLET PO ONE (12:15)
[2020-09-10 15:59] VITALS: BP 117/90
[2020-09-10] MEDS: TIOTROPIUM INHALER/CAPSULE (SPIRIVA) INH SCH (19:41)
[2020-09-10] MEDS: cefTRIAXone SOD 1 GM in D5W MINI-BAG PLUS 50 ML IV SCH (19:58)
[2020-09-10] MEDS: DIGOXIN 0.125 MG TAB PO SCH (19:58)
[2020-09-10] MEDS: ACETAMINOPHEN 500 MG TAB PO PRN (19:59)
[2020-09-10] MEDS: FOLIC ACID 1 MG TAB PO SCH (19:59)
[2020-09-10] MEDS: METOPROLOL TART 50 MG TAB PO SCH (19:59)
[2020-09-10 20:00] VITALS: BP 115/57
[2020-09-11] MEDS: FUROSEMIDE 40MG/4ML VIAL (J1940) IV SCH ×2 (03:47→11:45)
[2020-09-11 04:00] VITALS: BP 100/80
[2020-09-11 08:00] VITALS: BP 111/77
[2020-09-11] MEDS: ENOXAPARIN 40MG/0.4ML SYRINGE (J1650 PER 10MG) SC SCH (08:16)
[2020-09-11] MEDS: ACETAMINOPHEN 500 MG TAB PO PRN ×2 (08:16→16:56)
[2020-09-11] MEDS: MULTIVITAMINS/MINERALS THERAP 1 TAB PO SCH (08:17)
[2020-09-11] MEDS: DOXYCYCLINE HYCLATE 100MG TABLET PO SCH ×2 (08:17→20:20)
[2020-09-11] MEDS: METOPROLOL TART 50 MG TAB PO SCH ×2 (08:17→20:19)
--- NOTE | 2020-09-11 08:57 | IPN ---
PROGRESS NOTE DATE: 09/11/2020 SUBJECTIVE: Agnieszka is here for atrial fibrillation with rapid ventricular response, congestive heart failure, hyponatremia. She is being treated with Rocephin and Doxycycline for pneumonia, followed by Nephrology as well. Appreciate their input. Renal function returned to baseline. Denies any chest pain. No shortness of breath or palpitations. Overall feels stronger than yesterday. PHYSICAL EXAMINATION: VITAL SIGNS: Blood pressure 111/77, afebrile. Heart rate is 50s. GENERAL: Alert, conversant, in no distress. LUNGS: Decreased breath sounds at the right base, otherwise clear. HEART: Regular rate and rhythm. ABDOMEN: Soft, nontender. No masses. EXTREMITIES: Trace peripheral edema. LABORATORY DATA: Magnesium is 1.3. I do not have the rest of his lab work back. I/O was negative 2900 yesterday which makes it negative 5200 over the last two days. IMPRESSION: 1. Decompensated congestive heart failure, having good diuresis. Labs are not back yet. Continue his diuresis. I need to get his labs back to check his electrolytes. 2. Hypomagnesemia. IV Magnesium has been ordered. 3. Pneumonia. Continue antibiotic therapy. 4. Atrial fibrillation. His rate is controlled.
[2020-09-11] MEDS ORDERED: MAG SULF 1GM/100ML (MAG RUN) 1 GM in IV 1 EA IV ONE (09:00)
[2020-09-11 11:13] LABS: HEMATOCRIT 42.7 % (42.0-52.0); HEMOGLOBIN 14.2 g/dl (13.5-17.5); MEAN CORPUSCULAR HEMOGLOBIN 35.9 pg (27.0-33.0); MEAN CORPUSCULAR HGB CONC 33.3 g/dl (32.0-36.5); MEAN CORPUSCULAR VOLUME 107.8 fl (80.0-96.0); PLATELET COUNT, AUTOMATED 192 10^3/uL (150-450); RED BLOOD COUNT 3.96 10^6/uL (4.30-6.10); WHITE BLOOD COUNT 8.8 10^3/uL (4.0-10.0)
[2020-09-11 11:31] LABS: BLOOD UREA NITROGEN 15 MG/DL (7-18); CALCIUM LEVEL 7.8 MG/DL (8.5-10.1); CARBON DIOXIDE LEVEL 38 MEQ/L (21-32); CHLORIDE LEVEL 89 MEQ/L (98-107); CREATININE FOR GFR 0.76 MG/DL (0.70-1.30); GLOMERULAR FILTRATION RATE > 60.0 (>56); GLUCOSE, FASTING 119 MG/DL (70-100); POTASSIUM SERUM 3.7 MEQ/L (3.5-5.1); SODIUM LEVEL 132 MEQ/L (136-145)
[2020-09-11 12:00] VITALS: BP 106/64
--- NOTE | 2020-09-11 15:25 | IPN ---
PROGRESS NOTE DATE: 09/11/2020 SUBJECTIVE: Mr. Ayala is seen this morning on his bedside. He is feeling better and reports that his cough and dyspnea has improved. He denies any nausea or vomiting. PHYSICAL EXAMINATION: VITAL SIGNS: Temperature is 97.9 degrees Fahrenheit, heart rate is 100 per minute, respiratory rate 18 per minute, blood pressure is 106/64 mmHg and oxygen saturation 90% on room air. HEAD: Head is atraumatic. NECK: Supple and without JVD or thyroid enlargement. Old surgical scar from his jaw resection is all healed. HEART: Irregular in rhythm. LUNGS: Diminished breath sounds on the right side. ABDOMEN: Soft and nontender. Bowel sounds are normal. EXTREMITIES: Without any cyanosis or clubbing. NEUROLOGIC: He is awake and at his baseline mentation. LABORATORY DATA: Today's labs showed a WBC count of 8.8, hemoglobin of 14.2 and hematocrit 42.7. Sodium is 132, potassium is 3.7, CO2 32, BUN 15 and creatinine 0.76. Glucose is 119. Calcium is 7.8. Magnesium level is 1.3. PROBLEMS: 1. Congestive heart failure and right pleural effusion. Volume status has improved significantly and I am going to stop his intravenous Lasix today. We will reevaluate and consider starting oral diuretic in the next 24 to 48 hours. 2. Atrial fibrillation. His ventricular rate is reasonably well-controlled and remains on chronic medications. No changes are being made today. 3. Hypomagnesemia. The patient is already receiving magnesium sulfate 1 gram intravenously. 4. Pneumonia and right pleural effusion, patient is currently afebrile and remains on Ceftriaxone and doxycycline. Overall, Mr. Weir has made significant improvement since admission. He is likely to require maintenance diuretic because of his atrial fibrillation and congestive heart failure. We will consider to start diuretic at appropriate time.
[2020-09-11 16:00] VITALS: BP 100/64
[2020-09-11 20:00] VITALS: BP 106/68
[2020-09-11] MEDS: cefTRIAXone SOD 1 GM in D5W MINI-BAG PLUS 50 ML IV SCH (20:19)
[2020-09-11] MEDS: DIGOXIN 0.125 MG TAB PO SCH (20:20)
[2020-09-11] MEDS: FOLIC ACID 1 MG TAB PO SCH (20:20)
[2020-09-11] MEDS: TIOTROPIUM INHALER/CAPSULE (SPIRIVA) INH SCH (20:35)
[2020-09-12] VITALS: BP 104/62
[2020-09-12] MEDS: ACETAMINOPHEN 500 MG TAB PO PRN ×3 (03:59→20:46)
[2020-09-12 04:00] VITALS: BP 110/66
[2020-09-12 06:01] LABS: BLOOD UREA NITROGEN 19 MG/DL (7-18); CARBON DIOXIDE LEVEL 36 MEQ/L (21-32); CHLORIDE LEVEL 89 MEQ/L (98-107); CREATININE FOR GFR 0.56 MG/DL (0.70-1.30); GLOMERULAR FILTRATION RATE > 60.0 (>56); GLUCOSE, FASTING 111 MG/DL (70-100); MAGNESIUM LEVEL 1.7 MG/DL (1.8-2.4); POTASSIUM SERUM 3.3 MEQ/L (3.5-5.1); SODIUM LEVEL 130 MEQ/L (136-145)
[2020-09-12 08:00] VITALS: BP 116/60
[2020-09-12] MEDS ORDERED: MAG SULF 1GM/100ML (MAG RUN) 1 GM in IV 1 EA IV ONE (09:00)
--- NOTE | 2020-09-12 09:58 | IPN ---
PROGRESS NOTE DATE: 09/12/2020 SUBJECTIVE: Agnieszka feels better, less short of breath. He is having a good diuresis, dealing with hypokalemia and hypomagnesemia from the diuresis, still on antibiotic therapy for his pneumonia. Denies any chest pain. He says he less short of breath. His __ levels are improving. He is actually looking forward to discharge. PHYSICAL EXAMINATION: VITAL SIGNS: Blood pressure 110/66, pulse 80, 94% O2 saturation on room air. He about an even input/output yesterday. HEENT: Unchanged. LUNGS: Decreased breath sounds at right base. HEART: Irregular rate and rhythm. There is a 1/6 systolic ejection murmur. ABDOMEN: Soft, nontender. No masses. EXTREMITIES: Trace peripheral edema. LABORATORY DATA: Sodium 130, potassium 3.3, BUN 19, creatinine 0.5, glucose is 111. Magnesium is 1.7. IMPRESSION: 1. Congestive heart failure, responding well to diuresis. Starting oral furosemide today. Continue follow lab work. I believe he will be stable for discharge on 09/14/2019. 2. Hypokalemia, IV potassium has been ordered. 3. Hypomagnesemia, IV magnesium has been ordered. 4. Pneumonia, he is on Doxycycline 100 mg b.i.d. and Rocephin 1 gram IV daily which he will continue. 5. Atrial fibrillation, rate is controlled with Lopressor and Digoxin. He is not anticoagulated for reasons summarized previously.
[2020-09-12] MEDS: DOXYCYCLINE HYCLATE 100MG TABLET PO SCH ×2 (10:30→20:47)
[2020-09-12] MEDS: MULTIVITAMINS/MINERALS THERAP 1 TAB PO SCH (10:31)
[2020-09-12] MEDS: METOPROLOL TART 50 MG TAB PO SCH ×2 (10:31→20:50)
[2020-09-12] MEDS: FUROSEMIDE 40 MG TAB PO SCH ×2 (10:31→16:55)
[2020-09-12] MEDS: ENOXAPARIN 40MG/0.4ML SYRINGE (J1650 PER 10MG) SC SCH (10:32)
[2020-09-12 12:00] VITALS: BP 111/65
[2020-09-12] MEDS: KCL 10MEQ/100ML SWI (KRUN) 10 MEQ in IV 1 EA IV SCH ×3 (12:00→13:19)
[2020-09-12 16:00] VITALS: BP 119/72
[2020-09-12] MEDS ORDERED: POTASSIUM CHLORIDE 10 MEQ SR TABLET PO ONE ×2 (16:00→20:00)
--- NOTE | 2020-09-12 18:17 | IPN ---
"NEPHROLOGY PROGRESS NOTE DATE: 09/12/2020 SUBJECTIVE: The patient is seen and examined this morning at the bedside. He denies any shortness of breath at rest. He tells me that his appetite is improving and that he is generally eating better. His serum sodium levels are slowly downtrending and his diuretic was already discontinued yesterday morning. PHYSICAL EXAMINATION: | VITAL SIGNS: Temperature 98.7, pulse 77, respiratory rate 18, blood pressure 111/65, saturating 94% on room air. INTAKE AND OUTPUT: Intake yesterday was 1,150. Urine output yesterday was 1,225. Weight in the bed scale today is 56.4 kg. GENERAL APPEARANCE: The patient is seen lying in bed. Head of the bed is fairly flat. Middle aged male, thin and in no apparent distress. HEENT: The extraocular muscles are intact. Tongue is moist. NECK: Supple. Jugular veins are not elevated. HEART: Irregular. No leg edema nor dependent edema. LUNGS: Diminished breath sounds at the right base. ABDOMEN: Soft and nontender. There is no suprapubic fullness. SKIN: Normal temperature and turgor. NEUROLOGICAL: Oriented x3, interactive and conversational. LABORATORY STUDIES: White count 8.8, hemoglobin 14.2, platelet count 192. Sodium 130, potassium 2.3, bicarbonate 36, BUN 19, creatinine 0.5, magnesium 1.7. INPATIENT MEDICATIONS: Diuretics remain on hold. He received 80 mEq of potassium orally and 30 mEq as IV run. He was also given a run of magnesium sulfate and primary team also ordered Lasix 40 mg IV twice daily. PROBLEMS: 1. Hypovolemic hyponatremia - The patient's serum sodium has been downtrending; today it is 130. He also has a concomitant metabolic alkalosis. It points to a mild over diuresis. His Lasix was stopped yesterday morning. He is in daily net negative fluid balance regardless and his daily weights continue to downtrend. I would suggest to continue holding IV Lasix for now as his levels may continue to decline with use of IV diuretics. 2. Metabolic alkalosis his serum bicarbonate has increased from 13 up to 38. He is significantly alkalotic at this time. Again, probably related to a diuresis and aggressive fluid removal. I see his weight has downtrended since admission one week ago by around 8 kg. I would continue holding Lasix at this time. 3. Congestive heart failure with preserved ejection fraction his echocardiogram was reviewed. His volume status seems to have improved nicely on this admission. His weights are down 8 kg. I added BNP for serial trend. I think he is compensated at present and would suggest a diuretic holiday in view of hypokalemia, hypomagnesemia and most significantly increase in hyponatremia. 4. Disposition Primary Service is managing diuretics at the present time, so I will sign off. Please re-consult if needed."
[2020-09-12 20:00] VITALS: BP 116/67
[2020-09-12] MEDS: cefTRIAXone SOD 1 GM in D5W MINI-BAG PLUS 50 ML IV SCH (20:47)
[2020-09-12] MEDS: FOLIC ACID 1 MG TAB PO SCH (20:47)
[2020-09-12] MEDS: DIGOXIN 0.125 MG TAB PO SCH (20:51)
[2020-09-12] MEDS: TIOTROPIUM INHALER/CAPSULE (SPIRIVA) INH SCH (21:42)
[2020-09-13] VITALS: BP 100/69
[2020-09-13 04:00] VITALS: BP 102/66
[2020-09-13 05:40] LABS: HEMATOCRIT 36.7 % (42.0-52.0); HEMOGLOBIN 12.3 g/dl (13.5-17.5); MEAN CORPUSCULAR HEMOGLOBIN 36.1 pg (27.0-33.0); MEAN CORPUSCULAR HGB CONC 33.5 g/dl (32.0-36.5); MEAN CORPUSCULAR VOLUME 107.6 fl (80.0-96.0); PLATELET COUNT, AUTOMATED 178 10^3/uL (150-450); RED BLOOD COUNT 3.41 10^6/uL (4.30-6.10); WHITE BLOOD COUNT 6.8 10^3/uL (4.0-10.0)
[2020-09-13 05:47] LABS: BLOOD UREA NITROGEN 16 MG/DL (7-18); CARBON DIOXIDE LEVEL 34 MEQ/L (21-32); CHLORIDE LEVEL 96 MEQ/L (98-107); CREATININE FOR GFR 0.65 MG/DL (0.70-1.30); GLOMERULAR FILTRATION RATE > 60.0 (>56); GLUCOSE, FASTING 108 MG/DL (70-100); MAGNESIUM LEVEL 1.9 MG/DL (1.8-2.4); NT-PRO BNP 8921 PG/ML (<125); POTASSIUM SERUM 4.4 MEQ/L (3.5-5.1); SODIUM LEVEL 132 MEQ/L (136-145)
[2020-09-13 08:00] VITALS: BP 102/71
[2020-09-13] MEDS: ENOXAPARIN 40MG/0.4ML SYRINGE (J1650 PER 10MG) SC SCH ×2 (09:00→09:56)
[2020-09-13] MEDS: METOPROLOL TART 50 MG TAB PO SCH ×2 (09:00→21:21)
[2020-09-13] MEDS: MULTIVITAMINS/MINERALS THERAP 1 TAB PO SCH (09:56)
[2020-09-13] MEDS: DOXYCYCLINE HYCLATE 100MG TABLET PO SCH ×2 (09:57→21:19)
[2020-09-13 12:00] VITALS: BP 108/77
--- NOTE | 2020-09-13 15:31 | IPN ---
PROGRESS NOTE DATE: 09/13/2020 SUBJECTIVE: Agnieszka actually feels fairly well. His pressure is a little soft today. Systolic pressure around 100. Denies any weakness, shortness of breath. Feels he will be ready for discharge tomorrow. PHYSICAL EXAMINATION: Vital signs: Blood pressure 107/71, pulse between 60 and 100, 98.2 degrees. General appearance: Alert, conversant, no distress. IMPRESSION AND PLAN: 1. Congestive heart failure. His diuretics are on hold. Appreciate Pulmonary's input. Repeat labs ordered for tomorrow. 2. Pneumonia. On doxycycline and Rocephin. We will discharge him tomorrow morning on oral antibiotic. 3. Atrial fibrillation. His rate is controlled. Anticoagulation has been deferred for reasons previously summarized. 4. Electrolyte disturbance. These have been addressed on a daily basis. Potassium and magnesium are normal.
[2020-09-13 16:00] VITALS: BP 130/72
[2020-09-13 20:00] VITALS: BP 141/63
[2020-09-13] MEDS: cefTRIAXone SOD 1 GM in D5W MINI-BAG PLUS 50 ML IV SCH (21:19)
[2020-09-13] MEDS: FOLIC ACID 1 MG TAB PO SCH (21:20)
[2020-09-13] MEDS: DIGOXIN 0.125 MG TAB PO SCH (21:21)
[2020-09-13] MEDS: TIOTROPIUM INHALER/CAPSULE (SPIRIVA) INH SCH (22:21)
[2020-09-14] VITALS: BP 116/71
[2020-09-14 04:00] VITALS: BP 111/54
[2020-09-14 04:34] LABS: HEMATOCRIT 36.4 % (42.0-52.0); HEMOGLOBIN 11.7 g/dl (13.5-17.5); MEAN CORPUSCULAR HEMOGLOBIN 36.4 pg (27.0-33.0); MEAN CORPUSCULAR HGB CONC 32.1 g/dl (32.0-36.5); MEAN CORPUSCULAR VOLUME 113.4 fl (80.0-96.0); PLATELET COUNT, AUTOMATED 160 10^3/uL (150-450); RED BLOOD COUNT 3.21 10^6/uL (4.30-6.10); WHITE BLOOD COUNT 5.9 10^3/uL (4.0-10.0)
[2020-09-14 04:58] LABS: BLOOD UREA NITROGEN 18 MG/DL (7-18); CALCIUM LEVEL 7.7 MG/DL (8.5-10.1); CARBON DIOXIDE LEVEL 29 MEQ/L (21-32); CHLORIDE LEVEL 100 MEQ/L (98-107); CREATININE FOR GFR 0.72 MG/DL (0.70-1.30); GLOMERULAR FILTRATION RATE > 60.0 (>56); GLUCOSE, FASTING 86 MG/DL (70-100); POTASSIUM SERUM 4.4 MEQ/L (3.5-5.1); SODIUM LEVEL 136 MEQ/L (136-145)
[2020-09-14] MEDS: ACETAMINOPHEN 500 MG TAB PO PRN (06:31)
[2020-09-14 07:52] VITALS: BP 109/63
[2020-09-14 09:00] VITALS: BP 109/63
[2020-09-14] MEDS: ENOXAPARIN 40MG/0.4ML SYRINGE (J1650 PER 10MG) SC SCH (09:00)
[2020-09-14] MEDS: METOPROLOL TART 50 MG TAB PO SCH (09:00)
[2020-09-14] MEDS ORDERED: CEFU50TA PO (09:41)
[2020-09-14] MEDS ORDERED: DOXY100C PO (09:41)
[2020-09-14] MEDS: MULTIVITAMINS/MINERALS THERAP 1 TAB PO SCH (09:56)
[2020-09-14] MEDS: DOXYCYCLINE HYCLATE 100MG TABLET PO SCH (09:56)
--- NOTE | 2020-09-14 10:13 | DSES ---
DISCHARGE SUMMARY DATE OF ADMISSION: 09/06/2020 DATE OF DISCHARGE: 09/14/2020 PRINCIPAL DIAGNOSIS: Pneumonia, community-acquired. SECONDARY DIAGNOSES: 1. Congestive heart failure with preserved ejection fraction. 2. Hypovolemic hyponatremia. 3. Metabolic acidosis secondary to diuresis. 4. Atrial fibrillation with rapid ventricular response. HISTORY: Agnieszka Weir is a 60-year-old who was on hospice earlier this year but he improved, graduated from hospice in April and was living on his own until a week before admission when he felt dizzy and weak. He fell, hit the right side of his jaw, landed on the floor. He had been out of medications and could not reach his PCP to get them as he goes to [facility] and there was no one apparently answering phones over the holidays. He has a history of atrial fibrillation, jaw cancer, resection, reconstructive surgery, radiation therapy, chronic pain on chronic narcotic therapy, protein calorie malnutrition, continued smoking. HOSPITAL COURSE: He was admitted to a medical bed. He was treated with doxycycline and Rocephin for his pneumonia. His atrial fibrillation came under control with metoprolol. He was not anticoagulated for reasons that were determined prior to my assuming his case. He was seen by Nephrology. They helped manage his fluids. He was diuresed until he became a bit hyponatremic and had contraction alkalosis and his diuretics were held. Today on discharge, he is eager to go home. He is walking without assistance. PHYSICAL EXAM: VITAL SIGNS: His blood pressure is 109/63, pulse between 60 and 100, respiratory rate 18, 93% O2 saturation on room air. GENERAL: His general appearance is unchanged from admission. HEENT shows the jaw abnormality. LUNGS: Decreased breath sounds. HEART: Regular rate and rhythm. A 1/6 systolic ejection murmur. ABDOMEN: Soft, nontender. No masses. EXTREMITIES: No peripheral edema. SIGNIFICANT LABS: White count today is 5.9, hemoglobin 11.7, platelets 160. Sodium 136, potassium 4.4, BUN 18, creatinine 0.7, glucose 86. Magnesium 2.0. COVID was negative. MRSA screen was negative. He had a lactic acidosis on admission that resolved on followup. DISPOSITION: He is discharged home in improved and stable condition. He will follow up with Layton Olguin at [facility] in a week. His activity as tolerated. He has a no added salt diet, 1800 mL per day fluid restriction. MEDICATIONS ON DISCHARGE WILL BE: - Ceftin 500 mg twice a day for seven days - Doxycycline 100 mg twice a day for seven days - Digoxin 0.125 mg daily - Folic acid 1 mg daily - Protonix 40 mg daily - Spiriva one inhalation daily - Albuterol on an as needed basis At the time of this dictation there are no pending labs.
--- NOTE | 2020-09-14 10:38 | IPN ---
PROGRESS NOTE DATE: 09/14/2020 SUBJECTIVE: The patient is seen and examined at bedside this morning. He states he is feeling quite well and is hoping to go home today. He denies any chest pain, chest pain, or palpitations. OBJECTIVE: VITAL SIGNS: Temperature 99.5 degrees Fahrenheit temporal, heart rate 67, respiratory rate 18, blood pressure 109/63. Oxygen saturation 99% on room air. GENERAL: Alert and comfortable, sitting up in bed, in no acute distress. HEENT: Deformity in the right side of the jaw from prior dissection. Moist mucous membranes. NECK: JVD non-elevated. LUNGS: Diminished breath sounds in the bilateral lung bases. Otherwise, clear to auscultation. HEART: Irregularly irregular rhythm. Normal rate. No murmurs appreciated. ABDOMEN: Soft, nontender, and nondistended. Bowel sounds present. EXTREMITIES: Trace bilateral edema. NEUROLOGIC: No focal deficits appreciated. LABORATORY DATA: White blood cell count 5.9, hemoglobin 11.7, hematocrit 36.4, platelet count 160,000. Sodium 136, potassium 4.4, chloride 100, bicarb 29, BUN 18, creatinine 0.72, glucose 86. On telemetry monitoring, the patient is in rate controlled atrial fibrillation with a rate of 80-90 bpm. ASSESSMENT AND PLAN: Mr Weir is a 60-year-old male with a history of chronic atrial fibrillation who presented in atrial fibrillation with rapid ventricular response, likely due to alcoholism and alcohol withdrawal versus upper respiratory infection along with decompensation of congestive heart failure (CHF). His atrial fibrillation remains rate controlled on digoxin and metoprolol. He is not on anticoagulation and has a CHADS-VASc of 0. His CHF is now compensated and his diuretics have been held due to hypovolemic hyponatremia, which is being managed by nephrology. The patient is supposed to be discharged today per primary team and will need to follow-up with cardiology in the clinic in one week after discharge. AYDIN
[2020-09-14 12:00] VITALS: BP 112/79
== END 2020-09-14 14:42 | disposition home or self-care (01) | DRG 194 ==
LOC: M ED 17:57 → M ED INP 21:20 → M PCU 09-07 00:58
PROVIDERS: ADMIT Internal Medicine; ATTEND Family Medicine
DX: J18.9 Pneumonia, unspecified organism (principal); E87.1 Hypo-osmolality and hyponatremia; E87.2 Acidosis; I48.11 Longstanding persistent atrial fibrillation; M62.82 Rhabdomyolysis; E46 Unspecified protein-calorie malnutrition; N17.9 Acute kidney failure, unspecified; Z79.899 Other long term (current) drug therapy; F17.200 Nicotine dependence, unspecified, uncomplicated; D69.6 Thrombocytopenia, unspecified; E87.5 Hyperkalemia; N18.9 Chronic kidney disease, unspecified; F10.20 Alcohol dependence, uncomplicated; E83.42 Hypomagnesemia; R29.6 Repeated falls; I50.9 Heart failure, unspecified

== ENCOUNTER → 2020-09-28 | Outpatient (REF) | payer OTHER ==
[~2020-09-28] MED LIST changes: +ACET500T15 PO; +CEFU50TA PO; +DOXY100C PO; -LISI-538 PO; +LISI20TA33 PO; -MAG400TA PO; +MAGN400T35 PO; +PROAAER10 INH; +SPIR1CAP INH
[2020-09-28 18:57] LABS: BASO # 0.1 10^3/uL (0.0-0.2); BASO % 1.4 % (0.0-1.0); EOS # 0.2 10^3/uL (0.0-0.5); EOS % 4.7 % (0.0-3.0); HEMATOCRIT 39.9 % (42.0-52.0); HEMOGLOBIN 13.5 g/dl (13.5-17.5); LYMPH # 1.2 10^3/uL (1.5-5.0); MEAN CORPUSCULAR HEMOGLOBIN 37.3 pg (27.0-33.0); MEAN CORPUSCULAR HGB CONC 33.8 g/dl (32.0-36.5); MEAN CORPUSCULAR VOLUME 110.2 fl (80.0-96.0); MONO # 0.6 10^3/uL (0.0-0.8); MONO % 12.3 % (0.0-5.0); NEUTROPHILS % 58.2 % (36.0-66.0); PLATELET COUNT, AUTOMATED 406 10^3/uL (150-450); RED BLOOD COUNT 3.62 10^6/uL (4.30-6.10); WHITE BLOOD COUNT 5.1 10^3/uL (4.0-10.0)
[2020-09-28 19:34] LABS: ALT/SGPT 55 U/L (12-78); BILIRUBIN,TOTAL 0.7 MG/DL (0.2-1.0); BLOOD UREA NITROGEN 7 MG/DL (7-18); CALCIUM LEVEL 9.1 MG/DL (8.5-10.1); CARBON DIOXIDE LEVEL 24 MEQ/L (21-32); CHLORIDE LEVEL 102 MEQ/L (98-107); CREATININE FOR GFR 0.49 MG/DL (0.70-1.30); GLOMERULAR FILTRATION RATE > 60.0 (>56); GLUCOSE, FASTING 69 MG/DL (70-100); IRON (FE) 62 UG/DL (65-175); POTASSIUM SERUM 5.1 MEQ/L (3.5-5.1); SODIUM LEVEL 135 MEQ/L (136-145); TOTAL PROTEIN 6.1 GM/DL (6.4-8.2)
== END ==
LOC: M LAB REF 16:48
PROVIDERS: ATTEND Family Medicine Addiction Medicine
DX: E83.51 Hypocalcemia (principal); D64.9 Anemia, unspecified

== ENCOUNTER 2021-07-07 14:40 | Inpatient (IN) | payer OTHER ==
[~2021-07-07] VITALS: Ht 182.9 cm; Wt 55.5 kg
[~2021-07-07 14:40] MED LIST changes: -DOXY100C PO; +DOXY100C3 PO
[2021-07-07] MEDS: ALBUTEROL 90 MCG/ACT 8GM HFA INHALER INH SCH ×3 (15:20→15:32)
[2021-07-07 15:32] LABS: BASO # 0.1 10^3/uL (0.0-0.2); EOS # 0.1 10^3/uL (0.0-0.5); EOS % 1.8 % (0.0-3.0); HEMATOCRIT 42.3 % (42.0-52.0); HEMOGLOBIN 14.9 g/dl (13.5-17.5); LYMPH # 1.5 10^3/uL (1.5-5.0); LYMPH % 30.7 % (24.0-44.0); MEAN CORPUSCULAR HEMOGLOBIN 37.3 pg (27.0-33.0); MEAN CORPUSCULAR HGB CONC 35.2 g/dl (32.0-36.5); MEAN CORPUSCULAR VOLUME 105.8 fl (80.0-96.0); MONO # 0.6 10^3/uL (0.0-0.8); MONO % 11.2 % (2.0-8.0); NEUTROPHILS # 2.7 10^3/uL (1.5-8.5); NEUTROPHILS % 53.7 % (36.0-66.0); PLATELET COUNT, AUTOMATED 175 10^3/uL (150-450)
--- NOTE | 2021-07-07 15:38 | REP ---
INDICATION: DYSPNEA/COUGH. COMPARISON: 09/06/2020, 06/04/2020. TECHNIQUE: Single portable AP view of the chest was performed. FINDINGS: There is underlying interstitial fibrosis bilaterally. There may be mild superimposed infiltrate in the right lung base. The heart is upper limits of normal in size. The mediastinal silhouette is unchanged. Metallic clips are seen in the axillary regions bilaterally. There are old right rib fractures. IMPRESSION: Chronic findings. Possible mild superimposed right base infiltrate. <Electronically signed by Papo Fischer > 07/07/21 1951
[2021-07-07 16:17] LABS: ALT/SGPT 36 U/L (12-78); BILIRUBIN,DIRECT 0.2 MG/DL (0.0-0.2); BILIRUBIN,TOTAL 0.6 MG/DL (0.2-1.0); BLOOD UREA NITROGEN 10 MG/DL (7-18); CALCIUM LEVEL 8.5 MG/DL (8.5-10.1); CARBON DIOXIDE LEVEL 15 MEQ/L (21-32); CHLORIDE LEVEL 97 MEQ/L (98-107); CREATININE FOR GFR 0.69 MG/DL (0.70-1.30); DIGOXIN LEVEL 1.2 NG/ML (0.5-2.0); GLOMERULAR FILTRATION RATE > 60.0 (>56); GLUCOSE, FASTING 57 MG/DL (70-100); NT-PRO BNP 6192 PG/ML (<125); POTASSIUM SERUM 4.7 MEQ/L (3.5-5.1); SODIUM LEVEL 130 MEQ/L (136-145); THYROXINE (T4) 6.2 UG/DL (4.5-12.0); TOTAL PROTEIN 6.4 GM/DL (6.4-8.2)
[2021-07-07] MEDS ORDERED: FUROSEMIDE 40MG/4ML VIAL (J1940) IV ONE (16:20)
[2021-07-07] MEDS ORDERED: ACETAMINOPHEN 325 MG TAB PO ONE (16:55)
--- OUTSIDE RECORDS SUMMARY | 2021-07-07 17:19 | CCD ---
Author Author [facility] Organization [facility] Address Unknown Phone Unavailable Care Team Providers Care Material Handler Name Role Phone Anshul Olguin MD Unavailable Unavailable Anshul Olguin MD Unavailable Unavailable Anshul Olguin MD Unavailable Unavailable Anshul Olguin MD Unavailable Unavailable Ansuhl Olguin MD Unavailable Unavailable Anshul Olguin MD Unavailable Unavailable Anshul Olguin MD Unavailable Unavailable Anshul Olguin MD Unavailable Unavailable Anshul Olguin MD Unavailable Unavailable Anshul Olguin MD Unavailable Unavailable Anshul Olguin MD Unavailable Unavailable Anshul Olguin MD Unavailable Unavailable Anshul Olguin MD Unavailable Unavailable Anshul Olguin MD Unavailable Unavailable Anshul Olguin MD Unavailable Unavailable Anshul Olguin MD Unavailable Unavailable Anshul Olguin MD Unavailable Unavailable Anshul Olguin MD Unavailable Unavailable Anshul Olguin MD Unavailable Unavailable Anshul Olguin MD Unavailable Unavailable Anshul Olguin MD Unavailable Unavailable Anshul Olguin MD Unavailable Unavailable Anshul Olguin MD Unavailable Unavailable Anshul Olguin MD Unavailable Unavailable Anshul Olguin MD Unavailable Unavailable Anshul Olguin MD Unavailable Unavailable Anshul Olguin MD Unavailable Unavailable Anshul Olguin MD Unavailable Unavailable Anshul Olguin MD Unavailable Unavailable Anshul Olguin MD Unavailable Unavailable Anshul Olguin MD Unavailable Unavailable Anshul Olguin MD Unavailable Unavailable Anshul Olguin MD Unavailable Unavailable Anshul Olguin MD Unavailable Unavailable Anshul Olguin MD Unavailable Unavailable Anshul Olguin MD Unavailable Unavailable Anshul Olguin MD Unavailable Unavailable Anshul Olguin MD Unavailable Unavailable Anshul Olguin MD Unavailable Unavailable Anshul Olguin MD Unavailable Unavailable Anshul Olguin MD Unavailable Unavailable Anshul Olguin MD Unavailable Unavailable Anshul Olguin MD Unavailable Unavailable Anshul Olguin MD Unavailable Unavailable Anshul Olguin MD Unavailable Unavailable Anshul Olguin MD Unavailable Unavailable Anshul Olguin MD Unavailable Unavailable Anshul Olguin MD Unavailable Unavailable Anshul Olguin MD Unavailable Unavailable Anshul Olguin MD Unavailable Unavailable Anshul Olguin MD Unavailable Unavailable Anshul Olguin MD Unavailable Unavailable Anshul Olguin MD Unavailable Unavailable Anshul Olguin MD Unavailable Unavailable Anshul Olguin MD Unavailable Unavailable Anshul Olguin MD Unavailable Unavailable Anshul Olguin MD Unavailable Unavailable Anshul Olguin MD Unavailable Unavailable Anshul Olguin MD Unavailable Unavailable Anshul Olguin MD Unavailable Unavailable Anshul Olguin MD Unavailable Unavailable Anshul Olguin MD Unavailable Unavailable Anshul Olguin MD Unavailable Unavailable Anshul Olguin MD Unavailable Unavailable Anshul Olguin MD Unavailable Unavailable Anshul Olguin MD Unavailable Unavailable Anshul Olguin MD Unavailable Unavailable Anshul Olguin MD Unavailable Unavailable Anshul Olguin MD Unavailable Unavailable Anshul Olguin MD Unavailable Unavailable Anshul Olgiun MD Unavailable Unavailable Anshul Olguin MD Unavailable Unavailable Anshul Olguin MD Unavailable Unavailable Anshul Olguin MD Unavailable Unavailable Anshul Olguin MD Unavailable Unavailable Anshul Olguin MD Unavailable Unavailable Anshul Olguin MD Unavailable Unavailable Anshul Olguin MD Unavailable Unavailable Anshul Olguin MD Unavailable Unavailable Anshul Olguin MD Unavailable Unavailable Anshul Olguin MD Unavailable Unavailable Anshul Olguin MD Unavailable Unavailable Anshul Olguin MD Unavailable Unavailable Anshul Olguin MD Unavailable Unavailable Anshul Olguin MD Unavailable Unavailable Anshul Olguin MD Unavailable Unavailable Anshul Olguin MD Unavailable Unavailable Anshul Olguin MD Unavailable Unavailable Anshul Olguin MD Unavailable Unavailable Olguin, Anshul Traylor MD Unavailable Unavailable Olguin, Anshul Traylor MD Unavailable Unavailable Olguin, Anshul Traylor MD Unavailable Unavailable Olguin, Anshul Traylor MD Unavailable Unavailable DANIEL, Nelson QUEVEDO MD Unavailable Unavailable DANIEL, Nelson QUEVEDO MD Unavailable Unavailable DANIEL, Nelson QUEVEDO MD Unavailable Unavailable DANIEL, Nelson QUEVEDO MD Unavailable Unavailable DANIEL, Nelson QUEVEDO MD Unavailable Unavailable DANIEL, Nelson QUEVEDO MD Unavailable Unavailable DANIEL, Nelson QUEVEDO MD Unavailable Unavailable DANIEL, Nelson QUEVEDO MD Unavailable Unavailable DANIEL, Nelson QUEVEDO MD Unavailable Unavailable DANIEL, Nelson QUEVEDO MD Unavailable Unavailable DANIEL, Nelson QUEVEDO MD Unavailable Unavailable DANIEL, Nelson QUEVEDO MD Unavailable Unavailable DANIEL, Nelson QUEVEDO MD Unavailable Unavailable DANIEL, Nelson QUEVEDO MD Unavailable Unavailable DANIEL, Nelson QUEVEDO MD Unavailable Unavailable DANIEL, Nelson QUEVEDO MD Unavailable Unavailable DANIEL, Nelson QUEVEDO MD Unavailable Unavailable DANIEL, Nelson QUEVEDO MD Unavailable Unavailable DANIEL, Nelson QUEVEDO MD Unavailable Unavailable DANIEL, Nelson QUEVEDO MD Unavailable Unavailable DANIEL, Nelson QUEVEDO MD Unavailable Unavailable DANIEL, Nelson QUEVEDO MD Unavailable Unavailable DANIEL, Nelson QUEVEDO MD Unavailable Unavailable DANIEL, Nelson QUEVEDO MD Unavailable Unavailable DANIEL, Nelson QUEVEDO MD Unavailable Unavailable DANIEL, Nelson QUEVEDO MD Unavailable Unavailable DANIEL, Nelson QUEVEDO MD Unavailable Unavailable DANIEL, Nelson QUEVEDO MD Unavailable Unavailable DANIEL, Nelson QUEVEDO MD Unavailable Unavailable DANIEL, Nelson QUEVEDO MD Unavailable Unavailable DANIEL, Nelson QUEVEDO MD Unavailable Unavailable DANIEL, Nelson QUEVEDO MD Unavailable Unavailable DANIEL, Nelson QUEVEDO MD Unavailable Unavailable DANIEL, Nelson QUEVEDO MD Unavailable Unavailable DANIEL, Nelson QUEVEDO MD Unavailable Unavailable DANIEL, Nelson QUEVEDO MD Unavailable Unavailable DANIEL, Nelson QUEVEDO MD Unavailable Unavailable DANIEL, Nelson QUEVEDO MD Unavailable Unavailable DANIEL, Nelson QUEVEDO MD Unavailable Unavailable DANIEL, Nelson QUEVEDO MD Unavailable Unavailable DANIEL, Nelson QUEVEDO MD Unavailable Unavailable DANIEL, Nelson QUEVEDO MD Unavailable Unavailable DANIEL, Nelson QUEVEDO MD Unavailable Unavailable DANIEL, Nelson QUEVEDO MD Unavailable Unavailable DANIEL, Nelson QUEVEDO MD Unavailable Unavailable DANIEL, Nelson QUEVEDO MD Unavailable Unavailable DANIEL, Nelson QUEVEDO MD Unavailable Unavailable DANIEL, Nelson QUEVEDO MD Unavailable Unavailable DANIEL, Nelson QUEVEDO MD Unavailable Unavailable DANIEL, Nelson QUEVEDO MD Unavailable Unavailable DANIEL, Nelson QUEVEDO MD Unavailable Unavailable DANIEL, Nelson QUEVEDO MD Unavailable Unavailable DANIEL, Nelson QUEVEDO MD Unavailable Unavailable DANIEL, Nelson QUEVEDO MD Unavailable Unavailable DANIEL, Nelson QUEVEDO MD Unavailable Unavailable DANIEL, Nelson QUEVEDO MD Unavailable Unavailable DANIEL, Nelson QUEVEDO MD Unavailable Unavailable DANIEL, Nelson QUEVEDO MD Unavailable Unavailable DANIEL, Nelson QUEVEDO MD Unavailable Unavailable Anshul Olguin MD Unavailable Unavailable Anshul Olguin MD Unavailable Unavailable Anshul Olguin MD Unavailable Unavailable Anshul Olguin MD Unavailable Unavailable Anshul Olguin MD Unavailable Unavailable Anshul Olguin MD Unavailable Unavailable Anshul Olguin MD Unavailable Unavailable Anshul Olguin MD Unavailable Unavailable Anshul Olguin MD Unavailable Unavailable Anshul Olguin MD Unavailable Unavailable Anshul Olguin MD Unavailable Unavailable Anshul Olguin MD Unavailable Unavailable Anshul Olguin MD Unavailable Unavailable Anshul Olguin MD Unavailable Unavailable Anshul Olguin MD Unavailable Unavailable Anshul Olguin MD Unavailable Unavailable Anshul Olguin MD Unavailable Unavailable Anshul Olguin MD Unavailable Unavailable Anshul Olguin MD Unavailable Unavailable Anshul Olguin MD Unavailable Unavailable Anshul Olguin MD Unavailable Unavailable Anshul Olguin MD Unavailable Unavailable Anshul Olguin MD Unavailable Unavailable Anshul Olugin MD Unavailable Unavailable Anshul Olguin MD Unavailable Unavailable Anshul Olguin MD Unavailable Unavailable Anshul Olguin MD Unavailable Unavailable Anshul Olguin MD Unavailable Unavailable Anshul Olguin MD Unavailable Unavailable Anshul Olguin MD Unavailable Unavailable Anshul Olguin MD Unavailable Unavailable Anshul Olguin MD Unavailable Unavailable Anshul Olguin MD Unavailable Unavailable Anshul Olguin MD Unavailable Unavailable Anshul Olguin MD Unavailable Unavailable Anshul Olguin MD Unavailable Unavailable Anshul Olguin MD Unavailable Unavailable Anshul Olguin MD Unavailable Unavailable Anshul Olguin MD Unavailable Unavailable Anshul Olguin MD Unavailable Unavailable Anshul Olguin MD Unavailable Unavailable Anshul Olguin MD Unavailable Unavailable Anshul Olguin MD Unavailable Unavailable Anshul Olguin MD Unavailable Unavailable Anshul Olguin MD Unavailable Unavailable Anshul Olguin MD Unavailable Unavailable Anshul Olguin MD Unavailable Unavailable Anshul Olguin MD Unavailable Unavailable Anshul Olguin MD Unavailable Unavailable Anshul Olguin MD Unavailable Unavailable Anshul Olguin MD Unavailable Unavailable Anshul Olguin MD Unavailable Unavailable Anshul Olguin MD Unavailable Unavailable Anshul Olguin MD Unavailable Unavailable Anshul Olguin MD Unavailable Unavailable Anshul Olguin MD Unavailable Unavailable Anshul Olguin MD Unavailable Unavailable Anshul Olguin MD Unavailable Unavailable Anshul Olguin MD Unavailable Unavailable Anshul Olguin MD Unavailable Unavailable Anshul Olguin MD Unavailable Unavailable Anshul Olguin MD Unavailable Unavailable Anshul Olguin MD Unavailable Unavailable Anshul Olguin MD Unavailable Unavailable Anshul Olguin MD Unavailable Unavailable Anshul Olguin MD Unavailable Unavailable Anshul Olguin MD Unavailable Unavailable Anshul Olguin MD Unavailable Unavailable Anshul Olguin MD Unavailable Unavailable Anshul Olguin MD Unavailable Unavailable Anshul Olguin MD Unavailable Unavailable Anshul Olguin MD Unavailable Unavailable Anshul Olguin MD Unavailable Unavailable Anshul Olguin MD Unavailable Unavailable Anshul Olguin MD Unavailable Unavailable Anshul Olguin MD Unavailable Unavailable Anshul Olguin MD Unavailable Unavailable Anshul Olguin MD Unavailable Unavailable Anshul Olguin MD Unavailable Unavailable Anshul Olguin MD Unavailable Unavailable Anshul Olguin MD Unavailable Unavailable Anshul Olguin MD Unavailable Unavailable Anshul Olguin MD Unavailable Unavailable Anshul Olguin MD Unavailable Unavailable Anshul Olguin MD Unavailable Unavailable Anshul Olguin MD Unavailable Unavailable Anshul Olguin MD Unavailable Unavailable Anshul Olguin MD Unavailable Unavailable Anshul Olguin MD Unavailable Unavailable Anshul Olguin MD Unavailable Unavailable Anshul Olguin MD Unavailable Unavailable Anshul Olguin MD Unavailable Unavailable Anshul Olguin MD Unavailable Unavailable Rico, Nelson Maura PA-C Unavailable Unavailable Rico, Nelson Maura PA-C Unavailable Unavailable LATONIA, HANNAH HARSH NON DESTRUCTIVE EVALUATION MANAGER-C Unavailable Unavailable LATONIA, HANNAH HARSH NON DESTRUCTIVE EVALUATION MANAGER-C Unavailable Unavailable LATONIA, HANNAH HARSH NON DESTRUCTIVE EVALUATION MANAGER-C Unavailable Unavailable LATONIA, HANNAH HARSH NON DESTRUCTIVE EVALUATION MANAGER-C Unavailable Unavailable LATONIA, HANNAH HARSH NON DESTRUCTIVE EVALUATION MANAGER-C Unavailable Unavailable LATONIA, HANNAH HARSH NON DESTRUCTIVE EVALUATION MANAGER-C Unavailable Unavailable LATONIA, HANNAH HARSH NON DESTRUCTIVE EVALUATION MANAGER-C Unavailable Unavailable LATONIA, HANNAH HARSH NON DESTRUCTIVE EVALUATION MANAGER-C Unavailable Unavailable LATONIA, HANNAH HARSH NON DESTRUCTIVE EVALUATION MANAGER-C Unavailable Unavailable LATONIA, HANNAH HARSH NON DESTRUCTIVE EVALUATION MANAGER-C Unavailable Unavailable LATONIA, HANNAH HARSH NON DESTRUCTIVE EVALUATION MANAGER-C Unavailable Unavailable LATONIA, HANNAH HARSH NON DESTRUCTIVE EVALUATION MANAGER-C Unavailable Unavailable LATONIA, HANNAH HARSH NON DESTRUCTIVE EVALUATION MANAGER-C Unavailable Unavailable LATONIA, HANNAH HARSH NON DESTRUCTIVE EVALUATION MANAGER-C Unavailable Unavailable LATONIA, HANNAH HARSH NON DESTRUCTIVE EVALUATION MANAGER-C Unavailable Unavailable LATONIA, HANNAH HARSH NON DESTRUCTIVE EVALUATION MANAGER-C Unavailable Unavailable LATONIA, HANNAH HARSH NON DESTRUCTIVE EVALUATION MANAGER-C Unavailable Unavailable Drew SALES Unavailable Unavailable Darien Hedrick NP Unavailable Unavailable Darien Hedrick NP Unavailable Unavailable Floridalma, N Shiv LSAT INSTRUCTOR Unavailable Unavailable Humphrey, N Shiv LSAT INSTRUCTOR Unavailable Unavailable Floridalma, N Shiv LSAT INSTRUCTOR Unavailable Unavailable Humphrey, N Shiv LSAT INSTRUCTOR Unavailable Unavailable Humphrey, N Shiv LSAT INSTRUCTOR Unavailable Unavailable Humphrey, N Shiv LSAT INSTRUCTOR Unavailable Unavailable Floridalma, N Shiv LSAT INSTRUCTOR Unavailable Unavailable Floridalma, N Shiv LSAT INSTRUCTOR Unavailable Unavailable Floridalma, N Shiv LSAT INSTRUCTOR Unavailable Unavailable Humphrey, N Shiv LSAT INSTRUCTOR Unavailable Unavailable Humphrey, N Shiv LSAT INSTRUCTOR Unavailable Unavailable Humphrey, N Shiv LSAT INSTRUCTOR Unavailable Unavailable Floridalma, N Shiv LSAT INSTRUCTOR Unavailable Unavailable Floridalma, N Shiv LSAT INSTRUCTOR Unavailable Unavailable Floridalma, N Shiv LSAT INSTRUCTOR Unavailable Unavailable Floridalma, N Shiv LSAT INSTRUCTOR Unavailable Unavailable Floridalma, N Shiv LSAT INSTRUCTOR Unavailable Unavailable Humphrey, N Shiv LSAT INSTRUCTOR Unavailable Unavailable Floridalma, N Shiv LSAT INSTRUCTOR Unavailable Unavailable Humphrey, N Shiv LSAT INSTRUCTOR Unavailable Unavailable Floridalma, N Shiv LSAT INSTRUCTOR Unavailable Unavailable Humphrey, N Shiv LSAT INSTRUCTOR Unavailable Unavailable Humphrey, N Shiv LSAT INSTRUCTOR Unavailable Unavailable Floridalma, N Shiv LSAT INSTRUCTOR Unavailable Unavailable Floridalma, N Shiv LSAT INSTRUCTOR Unavailable Unavailable Floridalma, N Shiv LSAT INSTRUCTOR Unavailable Unavailable Floridalma, N Shiv LSAT INSTRUCTOR Unavailable Unavailable Floridalma, N Shiv LSAT INSTRUCTOR Unavailable Unavailable Humphrey, N Shiv LSAT INSTRUCTOR Unavailable Unavailable Floridalma, N Shiv LSAT INSTRUCTOR Unavailable Unavailable Floridalma, N Shiv LSAT INSTRUCTOR Unavailable Unavailable Shari Pickard MD Unavailable Unavailable Shari Pickard MD Unavailable Unavailable Shari Pickard MD Unavailable Unavailable Shari Pickard MD Unavailable Unavailable Shari Pickard MD Unavailable Unavailable Shari Pickard MD Unavailable Unavailable Shari Pickard MD Unavailable Unavailable Shari Pickard MD Unavailable Unavailable Shari Pickard MD Unavailable Unavailable Shari Pickard MD Unavailable Unavailable Shari Pickard MD Unavailable Unavailable Re-disclosure Warning The records that you are about to access may contain information from federally-assisted alcohol or drug abuse programs. If such information is present, then the following federally mandated warning applies: This information has been disclosed to you from records protected by federal confidentiality rules (42 CFR part 2). The federal rules prohibit you from making any further disclosure of this information unless further disclosure is expressly permitted by the written consent of the person to whom it pertains or as otherwise permitted by 42 CFR part 2. A general authorization for the release of medical or other information is NOT sufficient for this purpose. The Federal rules restrict any use of the information to criminally investigate or prosecute any alcohol or drug abuse patient.The records that you are about to access may contain highly sensitive health information, the redisclosure of which is protected by Article 27-F of the [facility] Public Health law. If you continue you may have access to information: Regarding HIV / AIDS; Provided by facilities licensed or operated by the [facility] Office of Mental Health; or Provided by the [facility] Office for People With Developmental Disabilities. If such information is present, then the following [facility] mandated warning applies: This information has been disclosed to you from confidential records which are protected by state law. State law prohibits you from making any further disclosure of this information without the specific written consent of the person to whom it pertains, or as otherwise permitted by law. Any unauthorized further disclosure in violation of state law may result in a fine or long term sentence or both. A general authorization for the release of medical or other information is NOT sufficient authorization for further disc losure. Allergies and Adverse Reactions Type Description Substance Reaction Status Data Source(s ) Propensity to adverse reactions NO KNOWN ALLERGIES NO KNOWN ALLERGIES [facility] Encounters Encounter Providers Location Date Indications Data Source(s ) Outpatient Attender: HARSH Collins/Yumiko/eHrman/Kat hung 03/03/2021 10:45:00 AM EDT [facility] Layton Olguin MD: [address] [place] [phone], Ph. 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 Outpatient Attender: JENNIFER SALESReferrer: SAE SANCHEZ MD [id number] 11/09/2020 12:00:00 AM [facility] Outpatient Attender: Maura KWOK-CReferrer: SAE WANG MD 11/09/2020 12:00:00 AM [facility] pretest Layton Olguin MD: [address] [place] [phone], Ph. Attender: Layton Olguin MD [facility] Medical 11/06/2020 12:00:00 AM EST [facility] ([facility]) Layton Olguin MD: [address] [place] [phone], Ph. Attender: Layton Olguin MD [facility] Medical 11/06/2020 12:00:00 AM EST [facility] ([facility]) Layton Olguin MD: [address] [place] [phone], Ph. Attender: Layton Olguin MD [facility] Medical 09/28/2020 12:00:00 AM EST [facility] ([facility]) Layton Olguin MD: [address] [place] [phone], Ph. Attender: Layton Olguin MD [facility] Medical 09/28/2020 12:00:00 AM EST [facility] ([facility]) Layton Olguin MD: [address] [place] [phone], Ph. Attender: Layton Olguin MD [facility] Medical 09/28/2020 12:00:00 AM EST [facility] ([facility]) Outpatient Attender: Shiv Hedrick NP [id number] 12:00:00 AM [facility] 03:37:12 PM [facility] Outpatient 08/27/2020 12:00:00 AM [facility] Outpatient Attender: Vivi Pickard MD 08/27/2020 12:00:00 AM [facility] Outpatient Attender: HARSH HART-Pearl Karina/Walker/Herman/R eindl 06/09/2020 02:15:00 PM EDT [facility] ([facility]) Outpatient Attender: HARSH MELGAR Karina/Walker/Herman/R eindl 06/04/2020 01:15:00 PM EDT [facility] ([facility]) Outpatient Attender: Layton Olguin MD 06/02/2020 02:19:01 PM EDT [facility] Outpatient Attender: Layton Olguin MD 06/02/2020 02:19:01 PM EDT [facility] Outpatient Attender: Layton Olguin MD 06/02/2020 02:19:01 PM EDT [facility] Outpatient Attender: aLyton Olguin MD 06/02/2020 02:19:01 PM EDT [facility] Inpatient Attender: SAE SANCHEZ MDAdmitter: SAE Russell MD 05/11/2020 10:54:25 AM EDT Z96.9 RETAINED HARDWARE MANDIBLE [facility] spital Z96.9 RETAINED HARDWARE MANDIBLE Outpatient Referrer: SAE SANCHEZ MD [id number] 05/11 12:00:00 AM EDT - [facility] Maura Rico PA-CReferrer: SAE WANG MD [id number] 05/11/2020 12:00:00 AM EDT [facility] pretest Immunizations Vaccine Date Status Description Data Source(s) COVID-19 VACC,MRNA(MODERNA)/PF 01/25/2021 12:00:00 AM EDT completed [facility] COVID-19 VACCINE Moderna 01/25/2021 12:00:00 AM EDT completed [facility] Vaccine Series Complete: NOThis Data was Submitted to [facility] [address]. New in 2011. IIV4 07/17/2020 06:47:00 AM EST completed [facility] ([facility], ) Medications Medication Brand Name Start Date Product Form Dose Route Admi nistrative Instructions Pharmacy Instructions Status Indications Reaction Description Data Source(s) . UNIT 06/22/2021 12:00:00 AM EDT Injectable 1 DIRECTED DIRECTED SOLD: 06/22/2021 [facility] 60 mcg (15 mcg x 4)/0.5 mL 06/22/2021 12:00:00 AM EDT suspen soni 0 DIRECTED IN THE LEFT ARM DIRECTED IN THE LEFT ARM SOLD: 06/22/2021 [facility] pantoprazole 40 MG Delayed Release Oral Tablet PANTOPRAZOLE SODIUM 06/19/2021 12:00:00 AM EDT tablet,delayed release (DR/EC) 30 T LILLY ONE TABLET BY MOUTH DAILY TAKE ONE TABLET BY MOUTH DAILY SOLD: 06/22/2021 [facility] Digoxin 0.125 MG Oral Tablet 125 mcg (0.125 mg) DIGOXIN 05/20/2021 12:00:00 AM EDT tablet 30 TAKE ONE TABLET BY MOUTH MILTON TAKE ONE TABLET BY MOUTH EVERY DAY SOLD: 05/22/2021 [facility] Digoxin 0.125 MG Oral Tablet 125 mcg (0.125 mg) DIGOXIN 05/20/2021 12:00:00 AM EDT tablet 30 TAKE ONE TABLET BY MOUTH TAKE ONE TABLET BY MOUTH EVERY DAY SOLD: 06/22/2021 [facility] 325 mg (65 mg iron) 02/01/2021 12:00:00 AM EDT tablet 30 TAKE 1 TABLET BY MOUTH DAILY TAKE 1 TABLET BY MOUTH DAILY SOLD: 02/10/2021 [facility] 325 mg (65 mg iron) 02/01/2021 12:00:00 AM EDT tablet 30 TAKE 1 TABLET BY MOUTH DAILY TAKE 1 TABLET BY MOUTH DAILY SOLD: 04/16/2021 [facility] 325 mg (65 mg iron) 02/01/2021 12:00:00 AM EDT tablet 30 TAKE 1 TABLET BY MOUTH DAILY TAKE 1 TABLET BY MOUTH DAILY SOLD: 03/10/2021 [facility] 325 mg (65 mg iron) 02/01/2021 12:00:00 AM EDT tablet 30 TAKE 1 TABLET BY MOUTH DAILY TAKE 1 TABLET BY MOUTH DAILY SOLD: 05/22/2021 [facility] 325 mg (65 mg iron) 02/01/2021 12:00:00 AM EDT tablet 30 TAKE 1 TABLET BY MOUTH DAILY TAKE 1 TABLET BY MOUTH DAILY SOLD: 06/22/2021 [facility] 1,250 mcg (50,000 unit) 01/25/2021 12:00:00 AM EDT capsule 4 TAKE ONE CAPSULE BY MOUTH ONCE WEEKLY TAKE ONE CAPSULE BY MOUTH ONCE WEEKLY SOLD: 01/25/2021 [facility] 1,250 mcg (50,000 unit) 01/25/2021 12:00:00 AM EDT capsule 4 TAKE ONE CAPSULE BY MOUTH ONCE WEEKLY TAKE ONE CAPSULE BY MOUTH ONCE WEEKLY SOLD: 05/11/2021 [facility] 1,250 mcg (50,000 unit) 01/25/2021 12:00:00 AM EDT capsule 4 TAKE ONE CAPSULE BY MOUTH ONCE WEEKLY TAKE ONE CAPSULE BY MOUTH ONCE WEEKLY SOLD: 03/10/2021 [facility] 1,250 mcg (50,000 unit) 01/25/2021 12:00:00 AM EDT capsule 4 TAKE ONE CAPSULE BY MOUTH ONCE WEEKLY TAKE ONE CAPSULE BY MOUTH ONCE WEEKLY SOLD: 04/07/2021 [facility] pantoprazole 40 MG Delayed Release Oral Tablet PANTOPRAZOLE SODIUM 01/07/2021 12:00:00 AM EDT tablet,delayed release (DR/EC) 30 T LILLY 1 TABLET BY MOUTH DAILY TAKE 1 TABLET BY MOUTH DAILY SOLD: 02/12/2021 [facility] pantoprazole 40 MG Delayed Release Oral Tablet PANTOPRAZOLE SODIUM 01/07/2021 12:00:00 AM EDT tablet,delayed release (DR/EC) 30 T LILLY 1 TABLET BY MOUTH DAILY TAKE 1 TABLET BY MOUTH DAILY SOLD: 03/15/2021 [facility] pantoprazole 40 MG Delayed Release Oral Tablet PANTOPRAZOLE SODIUM 01/07/2021 12:00:00 AM EDT tablet,delayed release (DR/EC) 30 T LILLY 1 TABLET BY MOUTH DAILY TAKE 1 TABLET BY MOUTH DAILY SOLD: 05/22/2021 [facility] pantoprazole 40 MG Delayed Release Oral Tablet PANTOPRAZOLE SODIUM 01/07/2021 12:00:00 AM EDT tablet,delayed release (DR/EC) 30 T LILLY 1 TABLET BY MOUTH DAILY TAKE 1 TABLET BY MOUTH DAILY SOLD: 04/16/2021 [facility] pantoprazole 40 MG Delayed Release Oral Tablet PANTOPRAZOLE SODIUM 01/07/2021 12:00:00 AM EDT tablet,delayed release (DR/EC) 30 T LILLY 1 TABLET BY MOUTH DAILY TAKE 1 TABLET BY MOUTH DAILY SOLD: 01/10/2021 [facility] Acetaminophen 325 MG / Hydrocodone Charisse trate 5 MG Oral Tablet HYDROcodone- Acetaminophen 5-325 MG Oral Tablet (LORTAB) HYDROcodone-Acetaminophen 5-325 MG Oral Tablet (LORTAB) 11/18/2020 12:00:00 AM EST 1 {tbl} Oral active Take 1 tablet by mouth every 6 (six) hours as needed for Pain for up to 3 days, Max Daily Dose: 4 tablets [facility] Mupirocin 0.02 MG/MG Topical Ointment mupirocin (BACTR OBAN) 2 % ointment mupirocin (BACTROBAN) 2 % ointment 11/13/2020 05:00:00 PM EST Topical active Topical, Three Time s Daily Standard, First dose on Mon11/13/20 at 1700, For 10 days
Apply to chin incision
[facility] Medication administered onsite Zinc Sulfate 220 MG Oral Capsule zinc sulfate (ZINCATE ) capsule 220 mg zinc sulfate (ZINCATE) capsule 220 mg 11/13/2020 09:00:00 AM EST 220 mg Oral active 220 mg, Oral, Every morning, First dose on Mon11/13/20 at 0900, For 7 doses
220 mg zinc sulfate- 50 mg elemental zinc
[facility] Medication administered onsite Digoxin 0.125 MG Oral Tablet digoxin (LANOXIN) tablet 125 mcg digoxin (LANOXIN) tablet 125 mcg 11/13/2020 09:00:00 AM EST 125 ug Oral act kiah 125 mcg, Oral, Every morning, First dose on Mon11/13/20 at 0900, For 30 days
Check vital signs before administering
[facility] Medication administered onsite pantoprazole 40 MG Delayed Release Oral Tablet pantoprazole (PROTONIX) EC tablet 40 mg pantoprazole (PROTONIX) EC tablet 40 mg 11/13/2020 09:00:[address] 40 mg Oral active 40 mg, Ora l, Every morning, First dose on Mon11/13/20 at 0900, For 30 days
Do not crush or chew
[facility] Medication administered onsite Cholecalciferol 1000 UNT Oral Tablet vit weaver D3 (CHOLECALCIFEROL) tablet 1,000 Units vitamin D3 (CHOLECALCIFEROL) tablet 1,000 Units 2020 09:00:00 AM EST 1000 U Oral active 1,000 Un its, Oral, Every morning, First dose on Mon11/13/20 at 0900, For 7 doses
25 mcg vitamin D3 = 1,000 international units vitamin D3.
[facility] Medication administered onsite Acetaminophen 325 MG Oral Tablet Acetaminophen 325 MG Oral Tablet (Tylenol) Acetaminophen 325 MG Oral Tablet (Tylenol) 11/13/2020 12:00:00 AM EST 650 mg Oral active Take 2 tablets by mouth every 6 (six) hours as needed for Pain for up to 10 days [facility] Oxycodone Hydrochloride 5 MG Oral Tablet oxyCODONE HCl 5 MG Oral Tablet (ROXICODONE) oxyCODONE HCl 5 MG Oral Tablet (ROXICODONE) 11/13/2020 12:00:00 AM EST 5 mg Oral completed Take 1 tablet by mouth every 4 (four) hours as needed for Pain for up to 5 days, Max Daily Dose: 30 mg [facility] Docusate Sodium 100 MG Oral Capsule docusate sodium (C OLACE) capsule 100 mg docusate sodium (COLACE) capsule 100 mg 11/12/2020 09:00:00 PM EST 100 mg Oral active 100 mg, Oral, 2 Times Daily, First dose on Mon11/12/20 at 2100, For 30 days [facility] Medication administered onsite Oxycodone Hydrochloride 5 MG Oral Tablet oxyCODONE (ROXICODONE) immediate release tablet 5 mg oxyCODONE (ROXICODONE) immediate release tablet 5 mg 11/12/2020 08:24:17 PM EST 5 mg Oral active 5 mg, Oral, Every 4 hours PRN, Moderate Pain (Pain Scale Score 4-6), Starting Kathie 11/12/20 at 2023, For 3 days
Oxycodone immediate release is limited to 10 mg per dose. Higher doses ( only) require Pain Service consultation and approval.
[facility] Medication administered onsite Mupirocin 0.02 MG/MG Topical Ointment mupirocin (BACTR OBAN) 2 % ointment mupirocin (BACTROBAN) 2 % ointment 11/12/2020 05:00:00 PM EST Topical active Topical, Three Time s Daily Standard, First dose on Kathie 11/12/20 at 1700, For 30 days
Apply to neck incision
[facility] Medication administered onsite ampicillin-sulbactam in NaCl 0.9 % 50 mL infusion 1.5 g 11/12/2020 04:00:00 PM EST 1.5 g Intravenous active 1.5 g, Intravenous, Every 6 hours, First dose on Kathie 11/12/20 at 1600, For 3 days
Dose based on mg of Unasyn. Each 150 mg of Unasyn contains 100 mg ampicillin.
Discouraged Uses: Empiric treatment of intra-abdominal infection
[facility] Medication administered onsite Acetaminophen 325 MG Oral Tablet acetaminophen (TYLENO L) tablet 650 mg acetaminophen (TYLENOL) tablet 650 mg 11/12/2020 03:32:22 PM EST 65 0 mg Oral active 650 mg, Oral, E very 6 hours PRN, Mild Pain (Pain Scale Score 1- 3), Starting Kathie 11/12/20 at 1532, For 30 days
Maximum daily dose of acetaminophen is 3,000 mg from all sources in 24 hours.
[facility] Medication administered onsite Oxycodone Hydrochloride 5 MG Oral Tablet oxyCODONE (ROXICODONE) immediate release tablet 7.5 mg oxyCODONE (ROXICODONE) immediate release tablet 7.5 mg 11/12/2020 03:32:22 PM EST 7.5 mg Oral active 7.5 mg, Oral, Every 4 hours PRN, Severe Pain (Pain Scale Score 7-10), Starting Kathie 11/12/20 at 1532, For 3 days
Oxycodone immediate release is limited to 10 mg per dose. Higher doses ( only) require Pain Service consultation and approval.
[facility] Medication administered onsite fentaNYL (SUBLIMAZE) (PF) injection 25 mcg 7950-7332-42 11/12/2020 01:23:48 PM EST 25 ug Intravenous aborted 25 m cg, Intravenous, Every 5 min PRN, Severe Pain (Pain Scale Score 7-10), Starting Kathie 11/12/20 at 1323, For 10 doses, [facility] Medication administered onsite 1,250 mcg (50,000 unit) 11/07/2020 12:00:00 AM EST capsule 4 TAKE ONE CAPSULE BY MOUTH ONCE WEEKLY TAKE ONE CAPSULE BY MOUTH ONCE WEEKLY SOLD: 11/09/2020 [facility] 325 mg (65 mg iron) 11/07/2020 12:00:00 AM EST tablet 30 TAKE ONE TABLET BY MOUTH EVERY DAY TAKE ONE TABLET BY MOUTH EVERY DAY SOLD: 11/09/2020 [facility] 1,250 mcg (50,000 unit) 11/07/2020 12:00:00 AM EST capsule 4 TAKE ONE CAPSULE BY MOUTH ONCE WEEKLY TAKE ONE CAPSULE BY MOUTH ONCE WEEKLY SOLD: 12/31/2020 [facility] 325 mg (65 mg iron) 11/07/2020 12:00:00 AM EST tablet 30 TAKE ONE TABLET BY MOUTH EVERY DAY TAKE ONE TABLET BY MOUTH EVERY DAY SOLD: 12/31/2020 [facility] Digoxin 0.125 MG Oral Tablet 125 mcg (0.125 mg) DIGOXIN 09/23/2020 12:00:00 AM EST tablet 30 TAKE ONE TABLET BY MOUTH MILTON RY DAY TAKE ONE TABLET BY MOUTH EVERY DAY SOLD: 09/24/2020 [facility] Digoxin 0.125 MG Oral Tablet 125 mcg (0.125 mg) DIGOXIN 09/23/2020 12:00:00 AM EST tablet 30 TAKE ONE TABLET BY MOUTH MILTON RY DAY TAKE ONE TABLET BY MOUTH EVERY DAY SOLD: 03/10/2021 [facility] Digoxin 0.125 MG Oral Tablet 125 mcg (0.125 mg) DIGOXIN 09/23/2020 12:00:00 AM EST tablet 30 TAKE ONE TABLET BY MOUTH MILTON RY DAY TAKE ONE TABLET BY MOUTH EVERY DAY SOLD: 11/02/2020 [facility] Digoxin 0.125 MG Oral Tablet 125 mcg (0.125 mg) DIGOXIN 09/23/2020 12:00:00 AM EST tablet 30 TAKE ONE TABLET BY MOUTH MILTON RY DAY TAKE ONE TABLET BY MOUTH EVERY DAY SOLD: 02/10/2021 [facility] Digoxin 0.125 MG Oral Tablet 125 mcg (0.125 mg) DIGOXIN 09/23/2020 12:00:00 AM EST tablet 30 TAKE ONE TABLET BY MOUTH MILTON RY DAY TAKE ONE TABLET BY MOUTH EVERY DAY SOLD: 12/31/2020 [facility] Digoxin 0.125 MG Oral Tablet 125 mcg (0.125 mg) DIGOXIN 09/23/2020 12:00:00 AM EST tablet 30 TAKE ONE TABLET BY MOUTH MILTON DAY TAKE ONE TABLET BY MOUTH EVERY DAY SOLD: 04/07/2021 [facility] Digoxin 0.125 MG Oral Tablet digoxin (LANOXIN) 125 MCG tablet digoxin (LANOXIN) 125 MCG tablet 09/22/2020 12:00:00 AM EST 125 ug Oral act kiah Take 1 tablet (125 mcg total) by mouth daily [facility] doxycycline hyclate 100 MG Oral Capsule doxycycline (V IBRAMYCIN) 100 MG capsule doxycycline (VIBRAMYCIN) 100 MG capsule 09/14/2020 12:00:00 AM EST 100 mg Oral active Take 100 mg by mouth 2 (two) times a day [facility] Cefuroxime 500 MG Oral Tablet cefuroxime (CEFTIN) 500 MG tablet cefuroxime (CEFTIN) 500 MG tablet 09/14/2020 12:00:00 AM EST 500 mg Oral active Take 500 mg by mouth 2 (two) times a day [facility] doxycycline hyclate 100 MG Oral Capsule DOXYCYCLINE HYCLATE 09/14/2020 12:00:00 AM EST capsule 14 TAKE ONE CAPSULE BY MOUTH TW ICE A DAY TAKE ONE CAPSULE BY MOUTH TWICE A DAY SOLD: 09/17/2020 [facility] 500 mg 09/14/2020 12:00:00 AM EST tablet 14 TAKE ONE TABLET BY MOUTH TWICE A DAY TAKE ONE TABLET BY MOUTH TWICE A DAY SOLD: 09/17/2020 [facility] 18 mcg 08/12/2020 12:00:00 AM EST capsule, w/inhalation d evice 90 INHALE THE CONTENTS OF ONE CAPSULE VIA HANDIHALER BY MOUTH EVERY DAY INHALE THE CONTENTS OF ONE CAPSULE VIA HANDIHALER BY MOUTH EVERY DAY SOLD: 02/12/2021 [facility] tiotropium 0.018 MG/ACTUAT Inhalant Powd er [Spiriva] SPIRIVA HANDIHALER 18 MCG inhalation capsule SPIRIVA HANDIHALER 18 MCG inhalation capsule 12:00:00 AM EST active INHALE THE CONTENTS OF ONE CAPSULE VIA HANDIHALER BY MOUTH EVERY DAY [facility] 18 mcg 08/12/2020 12:00:00 AM EST capsule, w/inhalation d evice 90 INHALE THE CONTENTS OF ONE CAPSULE VIA HANDIHALER BY MOUTH EVERY DAY INHALE THE CONTENTS OF ONE CAPSULE VIA HANDIHALER BY MOUTH EVERY DAY SOLD: 08/16/2020 [facility] tiotropium 0.018 MG/ACTUAT Inhalant Powder [Spiriva] Spiriva Handihaler 08/11/2020 12:00:00 AM EST active MEDENT ([facility], ) 90 mcg/actuation 06/10/2020 12:00:00 AM EDT HFA aerosol inha ler 8 INHALE TWO PUFFS BY MOUTH FOUR TIMES A DAY NEEDED INHALE TWO PUFFS BY MOUTH FOUR TIMES A DAY NEEDED SOLD: 05/11/2021 [facility] 90 mcg/actuation 06/10/2020 12:00:00 AM EDT HFA aerosol inha ler 8 INHALE TWO PUFFS BY MOUTH FOUR TIMES A DAY NEEDED INHALE TWO PUFFS BY MOUTH FOUR TIMES A DAY NEEDED SOLD: 02/10/2021 [facility] 2.5 mcg/actuation 06/10/2020 12:00:00 AM EDT mist 4 INHALE TWO PUFFS BY MOUTH EVERY DAY INHALE TWO PUFFS BY MOUTH EVERY DAY SOLD: 06/13/2020 [facility] 90 mcg/actuation 06/10/2020 12:00:00 AM EDT HFA aerosol inha ler 8 INHALE TWO PUFFS BY MOUTH FOUR TIMES A DAY NEEDED INHALE TWO PUFFS BY MOUTH FOUR TIMES A DAY NEEDED SOLD: 06/13/2020 [facility] 200 ACTUAT Albuterol 0.09 MG/ACTUAT Metered Dose Inhal er [Ventolin] Ventolin HFA 06/09/2020 12:00:00 AM EDT RESPIRATORY active [facility] ([facility], ) Spiriva Respimat Spiriva Respimat 06/09/2020 12:00:00 AM EDT ORAL active [facility] ([facility], ) pantoprazole 40 MG Delayed Release Oral Tablet PANTOPRAZOLE SODIUM 03/19/2020 12:00:00 AM EDT tablet,delayed release (DR/EC) 30 T LILLY ONE TABLET BY MOUTH EVERY DAY TAKE ONE TABLET BY MOUTH EVERY DAY SOLD: 10/01/2020 [facility] pantoprazole 40 MG Delayed Release Oral Tablet PANTOPRAZOLE SODIUM 03/19/2020 12:00:00 AM EDT tablet,delayed release (DR/EC) 30 T LILLY ONE TABLET BY MOUTH EVERY DAY TAKE ONE TABLET BY MOUTH EVERY DAY SOLD: 11/10/2020 [facility] pantoprazole 40 MG Delayed Release Oral Tablet PANTOPRAZOLE SODIUM 03/19/2020 12:00:00 AM EDT tablet,delayed release (DR/EC) 30 T LILLY ONE TABLET BY MOUTH EVERY DAY TAKE ONE TABLET BY MOUTH EVERY DAY SOLD: 05/26/2020 [facility] pantoprazole 40 MG Delayed Release Oral Tablet PANTOPRAZOLE SODIUM 03/19/2020 12:00:00 AM EDT tablet,delayed release (DR/EC) 30 T LILLY ONE TABLET BY MOUTH EVERY DAY TAKE ONE TABLET BY MOUTH EVERY DAY SOLD: 08/11/2020 [facility] pantoprazole 40 MG Delayed Release Oral Tablet PANTOPRAZOLE SODIUM 03/19/2020 12:00:00 AM EDT tablet,delayed release (DR/EC) 30 T LILLY ONE TABLET BY MOUTH EVERY DAY TAKE ONE TABLET BY MOUTH EVERY DAY SOLD: 06/30/2020 [facility] 125 mcg (0.125 mg) 11/27/2019 12:00:00 AM EDT tablet 30 TAKE ONE TABLET BY MOUTH EVERY DAY TAKE ONE TABLET BY MOUTH EVERY DAY SOLD: 05/26/2020 [facility] 1 mg 07/27/2019 12:00:00 AM EST tablet 30 TAKE ONE TABLET BY MOUTH EVERY DAY TAKE ONE TABLET BY MOUTH EVERY DAY SOLD: 07/27/2020 [facility] 1 mg 07/27/2019 12:00:00 AM EST tablet 30 TAKE ONE TABLET BY MOUTH EVERY DAY TAKE ONE TABLET BY MOUTH EVERY DAY SOLD: 06/09/2020 [facility] gabapentin 100 MG Oral Capsule gabapentin (NEURONTIN) 100 MG capsule gabapentin (NEURONTIN) 100 MG capsule 05/15/2019 12:00:00 AM EDT aborted 3 (three) times a day [facility] Thiamine 100 MG Oral Tablet thiamine 100 MG tablet thiamine 100 MG tablet 05/15/2019 12:00:00 AM EDT aborted daily [facility] Digoxin 0.125 MG Oral Tablet digoxin (LANOXIN) 125 MCG tablet digoxin (LANOXIN) 125 MCG tablet 01/09/2018 12:00:00 AM EDT aborted daily [facility] Metoclopramide 10 MG Oral Tablet metoclopramide (JOANN N) 10 MG tablet metoclopramide (REGLAN) 10 MG tablet 01/01/2018 12:00:00 AM EDT aborted daily [facility] OxyCODONE HCl ER (OXYCONTIN) 20 MG T12A 12 hr tablet [id number] 11/23/2015 12:00:00 AM EDT aborted [facility] Oxycodone Hydrochloride 1 MG/ML Oral Andra ution oxycodone (ROXICODONE) 5 MG/5ML solution oxycodone (ROXICODONE) 5 MG/5ML solution 01/22/2015 12:00:00 AM EDT aborted Take 15mL to 30mL by mouth or by g-tube every four to six hours as needed for pain (15mL for moderate pain, 30mL for severe pain) [facility] rivaroxaban 20 MG Oral Tablet Rivaroxaban (XARELTO) 20 MG TABS Rivaroxaban (XARELTO) 20 MG TABS 01/22/2015 12:00:00 AM EDT 20 mg Oral aborted Take 1 tablet by mouth daily. [facility] Resource Instant Protein POWD [id number] 01/22/2015 12:00:00 AM E DT 1 {packet} Oral aborted Take 1 packet by mouth daily. [facility] Morphine Sulfate 30 MG Oral Tablet morphine (MSIR) 30 MG tablet morphine (MSIR) 30 MG tablet 01/06/2015 12:00:00 AM EDT aborted as needed [facility] Morphine Sulfate 30 MG Oral Tablet morphine (MSIR) 30 MG tablet morphine (MSIR) 30 MG tablet 12/04/2014 12:00:00 AM EDT 30 mg Oral abort ed Take 30 mg by mouth Two Times Daily [facility] Oxycodone Hydrochloride 20 MG Oral Tablet Oxycodone HC l 20 MG TABS Oxycodone HCl 20 MG TABS 07/15/2014 12:00:00 AM EST aborted as needed [facility] Metoprolol Tartrate 25 MG Oral Tablet me toprolol tartrate (LOPRESSOR) 25 MG tablet metoprolol tartrate (LOPRESSOR) 25 MG tablet 01/21/2014 12:0 0:00 AM EDT aborted daily [facility] Potassium 99 MG TABS [id number] 01/10/2014 12:00:00 AM EDT 1 {t bl} Oral aborted Take 1 tablet by mouth 2 (two) t imes a day [facility] Magnesium Oxide 400 MG Oral Tablet magnesium oxide (MA G-OX) 400 MG tablet magnesium oxide (MAG-OX) 400 MG tablet 03/09/2012 12:00:00 AM EDT aborted 2 (two) times a day [facility] rivaroxaban 15 MG Oral Tablet rivaroxaban (XARELTO) 15 MG TABS rivaroxaban (XARELTO) 15 MG TABS 03/09/2012 12:00:00 AM EDT ab orted daily [facility] Loratadine 10 MG Oral Tablet loratadine 10 mg tablet loratadine 10 mg tablet completed loratadine 10 MG Oral Tablet [facility]) gabapentin 100 MG Oral Capsule gabapentin 100 mg capsu le gabapentin 100 mg capsule completed gabapentin 100 MG Oral Capsule DRIFT ([facility]) 12 HR Oxycodone Hydrochloride 20 MG Exte nded Release Oral Tablet [Oxycontin] OxyContin 20 mg tablet,crush resistant,extended release OxyContin 20 mg tablet,crush resistant,extended release completed Abuse- Deterrent 12 HR oxycodone hydrochloride 20 MG Extended Release Oral Tablet [Oxycontin] DRIFT ([facility] er) Ketoconazole 20 MG/ML Topical Cream ketoconazole 2 % t opical cream ketoconazole 2 % topical cream completed keto conazole 20 MG/ML Topical Cream [facility]IFT ([facility]) Metoclopramide 10 MG Oral Tablet metoclopramide 10 mg tablet metoclopramide 10 mg tablet completed metocloprami de 10 MG Oral Tablet [facility] ([facility]) Metoclopramide 10 MG Oral Tablet metoclopramide 10 mg tablet metoclopramide 10 mg tablet completed metocloprami de 10 MG Oral Tablet [facility]) pantoprazole 40 MG Delayed Release Oral Tablet Pantoprazole Sodium 40 MG Oral Tablet Delayed Release (PROTONIX) Pantoprazole Sodium 40 MG Oral Tablet De layed Release (PROTONIX) 40 mg Oral aborted Take 40 mg by mouth every morning [facility] Morphine Sulfate 30 MG Extended Release Oral Tablet morphine ER 30 mg tablet,extended release morphine ER 30 mg tablet,extended release completed morphine sulfate 30 MG Extended Release Oral Tablet [facility] ([facility]) Metoclopramide 10 MG Oral Tablet metoclopramide (JOANN N) 10 MG tablet metoclopramide (REGLAN) 10 MG tablet 10 mg Oral a borted Take 10 mg by mouth Three times daily [facility] gabapentin 100 MG Oral Capsule gabapentin 100 mg capsu le gabapentin 100 mg capsule completed gabapentin 100 MG Oral Capsule DRIFT ([facility]) Morphine Sulfate 30 MG Extended Release Oral Tablet morphine ER 30 mg tablet,extended release morphine ER 30 mg tablet,extended release completed morphine sulfate 30 MG Extended Release Oral Tablet DRIFT ([facility]) Morphine Sulfate 30 MG Extended Release Oral Tablet morphine ER 30 mg tablet,extended release morphine ER 30 mg tablet,extended release completed morphine sulfate 30 MG Extended Release Oral Tablet [facility] ([facility]) Guaifenesin 20 MG/ML Oral Solution [Robafen] Robafen 1 00 mg/5 mL oral liquid Robafen 100 mg/5 mL oral liquid comple dottie guaifenesin 20 MG/ML Oral Solution [Robafen] [facility] ([facility]) Amoxicillin 875 MG / Clavulanate 125 MG Oral Tablet amoxicillin 875 mg-potassium clavulanate 125 mg tablet amoxicillin 875 mg-potassium clavulanate 125 mg tablet completed amoxici llin 875 MG / clavulanate 125 MG Oral Tablet DR[facility] ([facility]) Mupirocin 0.02 MG/MG Topical Ointment mupirocin 2 % to pical ointment mupirocin 2 % topical ointment completed mupirocin 0.02 MG/MG Topical Ointment DR[facility] ([facility]) gabapentin 50 MG/ML Oral Solution gabapentin (NEURONTI N) 250 MG/5ML solution gabapentin (NEURONTIN) 250 MG/5ML solution 250 mg Oral aborted Take 250 mg by mouth Three times daily. [facility] Esomeprazole 40 MG Delayed Release Oral Capsule esomeprazole (NEXIUM) 40 MG capsule esomeprazole (NEXIUM) 40 MG capsule 40 mg Oral aborted Take 40 mg by mouth daily [facility] Loratadine 10 MG Oral Tablet loratadine 10 mg tablet loratadine 10 mg tablet completed loratadine 10 MG Oral Tablet CE ([facility]) Guaifenesin 20 MG/ML Oral Solution [Robafen] Robafen 1 00 mg/5 mL oral liquid Robafen 100 mg/5 mL oral liquid comple dottie guaifenesin 20 MG/ML Oral Solution [Robafen] CE ([facility] er) Loratadine 10 MG Oral Tablet loratadine 10 mg tablet loratadine 10 mg tablet completed loratadine 10 MG Oral Tablet CE ([facility]) Guaifenesin 20 MG/ML Oral Solution [Robafen] Robafen 1 00 mg/5 mL oral liquid Robafen 100 mg/5 mL oral liquid comple dottie guaifenesin 20 MG/ML Oral Solution [Robafen] CE ([facility]) Mupirocin 0.02 MG/MG Topical Ointment mupirocin 2 % to pical ointment mupirocin 2 % topical ointment completed mupirocin 0.02 MG/MG Topical Ointment CE ([facility]) gabapentin 100 MG Oral Capsule gabapentin 100 mg capsu le gabapentin 100 mg capsule completed gabapentin 100 MG Oral Capsule DRIFT ([facility]) Metoclopramide 10 MG Oral Tablet metoclopramide 10 mg tablet metoclopramide 10 mg tablet completed metocloprami de 10 MG Oral Tablet CE ([facility]) Mupirocin 0.02 MG/MG Topical Ointment mupirocin 2 % to pical ointment mupirocin 2 % topical ointment completed mupirocin 0.02 MG/MG Topical Ointment CE ([facility] er) Amoxicillin 875 MG / Clavulanate 125 MG Oral Tablet amoxicillin 875 mg-potassium clavulanate 125 mg tablet amoxicillin 875 mg-potassium clavulanate 125 mg tablet completed amoxici llin 875 MG / clavulanate 125 MG Oral Tablet CE ([facility] er) Ketoconazole 20 MG/ML Topical Cream ketoconazole 2 % t opical cream ketoconazole 2 % topical cream completed keto conazole 20 MG/ML Topical Cream CE ([facility]) 12 HR Oxycodone Hydrochloride 20 MG Exte nded Release Oral Tablet [Oxycontin] OxyContin 20 mg tablet,crush resistant,extended release OxyContin 20 mg tablet,crush resistant,extended release completed Abuse- Deterrent 12 HR oxycodone hydrochloride 20 MG Extended Release Oral Tablet [Oxycontin] DRIFT ([facility]) Ketoconazole 20 MG/ML Topical Cream ketoconazole 2 % t opical cream ketoconazole 2 % topical cream completed keto conazole 20 MG/ML Topical Cream DR[facility] ([facility]) Amoxicillin 875 MG / Clavulanate 125 MG Oral Tablet amoxicillin 875 mg-potassium clavulanate 125 mg tablet amoxicillin 875 mg-potassium clavulanate 125 mg tablet completed amoxici llin 875 MG / clavulanate 125 MG Oral Tablet [facility] ([facility]) Esomeprazole 40 MG Delayed Release Oral Capsule esomeprazole (NEXIUM) 40 MG capsule esomeprazole (NEXIUM) 40 MG capsule 40 mg Oral aborted Symptomatic Gastroesophageal Reflux Disease Take 40 mg by mouth every morning before breakfast. Indications: Gastroesophageal Reflux Disease with Current [facility] Symptomatic Gastroesophageal Reflux Dise ase 12 HR Oxycodone Hydrochloride 20 MG Exte nded Release Oral Tablet [Oxycontin] OxyContin 20 mg tablet,crush resistant,extended release OxyContin 20 mg tablet,crush resistant,extended release completed Abuse- Deterrent 12 HR oxycodone hydrochloride 20 MG Extended Release Oral Tablet [Oxycontin] DR[facility] ([facility]) Insurance Providers Payer name Policy type / Coverage type Policy ID Covered alliance party ID Covered alliance party's relationship to nunez Policy Nunez Plan Information POMCO [id number] WI2 [id number] POMCO U [id number] Spouse [id number] POMCO P [id number] S [id number] POMCO U [id number] Spouse [id number] UMR U [id number] Spouse [id number] UMR [id number] Spo [id number] UMR P [id number] S [id number] UMR P [id number] S [id number] UMR [facility] [id number] WI2 [id number] UMR P [id number] S [id number] UMR P [id number] S [id number] UMR P [id number] S [id number] UMR P [id number] S [id number] UMR -O/P [id number] 01 [id number] UMR -O [id number] 01 [id number] Self Pay P UNAVAILABLE S UNAVAILA BLE [employer]OMCO PPO O [id number] P [id number] UMR O [id number] S [id number] POMCO O [id number] S [id number] Problems, Conditions, and Diagnoses Code Display Name Description Problem Type Effective Dates Data Source(s) T84.7XXS 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, implants and grafts, sequela Infection and inflammatory reaction due to other internal orthopedic prosthetic devices, implants and grafts, sequela Diagnosis 11/12/2020 10:24:00 AM [facility] Z96.9 RETAINED HARDWARE MANDIBLE Z96.9 RETAINED HARDWA RE MANDIBLE Diagnosis 11/12/2020 10:24:00 AM [facility] pretest pretest Diagnosis 11/09/2020 09:58:18 AM [facility] I48.91 Unspecified atrial fibrillation Unspecified atri al fibrillation Diagnosis 09/22/2020 02:49:01 PM [facility] I42.0 Dilated cardiomyopathy Dilated cardiomyopathy Diagnosi s 09/22/2020 02:49:01 PM [facility] [id number] Iron deficiency anemia Iron Deficiency Anemia Problem 11/06/2020 12:00:00 AM EST [facility] er) [id number] Vitamin deficiency Vitamin Deficiency Problem 12:00:00 AM EST CE ([facility]) [id number] Iron deficiency anemia Iron Deficiency Anemia Problem 11/06/2020 12:00:00 AM EST CE ([facility]) [id number] Vitamin deficiency Vitamin Deficiency Problem 12:00:00 AM EST CE ([facility]) [id number] Atrial fibrillation Atrial Fibrillation Problem 0 09/28/2020 12:00:00 AM EST CE ([facility] er) [id number] Atrial fibrillation Atrial Fibrillation Problem 0 09/28/2020 12:00:00 AM EST CE ([facility] er) [id number] Atrial fibrillation Atrial Fibrillation Problem 0 09/28/2020 12:00:00 AM EST CE ([facility] er) Z23 Active or passive immunization Active or passive immun ization Problem 07/17/2020 12:00:00 AM JENNIFER MUÑOZ ([facility], ) Surgeries/Procedures Procedure Description Date Indications Data Source(s) Spirometry 03/03/2021 12:00:00 AM EDT Drew HARDWICK ([facility], ) OFFICE OUTPATIENT VISIT 25 MINUTES 03/03/2021 12:00:00 AM EDKatherine MUÑOZ ([facility], ) COVID-19 PCR <td>COVID-19 PCR</td><td>Rou ilda</td><td>11/12/2020 5:57 PM EST</td><td></td><td> </td> 11/12/2020 05:57:00 PM [facility] RADIOLOGIC EXAMINATION MANDIPLE PRTL < 4 VIEWS <td>XR MANDIBLE LESS THAN 4 VIEWS [id number]</td><td>STAT</td><td>11/12/2020 12:22 PM EST</td><td></td><td> </td> 11/12/2020 12:22:52 PM [facility] REMOVAL, IMPLANT DEEP <td>REMOVAL, IMPLANT DEEP</t d><td></td><td>11/12/2020 11:17 AM EST</td><td> Z96.9 RETAINED HARDWARE MANDIBLE</td><td></td> 11/12/2020 11:17:00 AM EST - 11/12/2020 02:15:00 PM [facility] PULMONARY FUNCTION TEST REPORT <td>PULMONARY FUNCTION TEST REPORT</td><td></td><td>11/10/2020 8:34 AM EST</td><td></td><td></td> 11/10/2020 08:34:16 AM EST [facility] PULMONARY FUNCTION TEST REPORT <td>PULMONARY FUNCTION TEST REPORT</td><td></td><td>11/10/2020 8:33 AM EST</td><td></td><td></td> 11/10/2020 08:33:29 AM EST [facility] CARDIAC REPORT <td>CARDIAC REPORT</td><td>< /td><td>11/09/2020 9:19 AM EST</td><td></td><td></td> 11/09/2020 09:19:14 AM EST [facility] CARDIAC REPORT <td>CARDIAC REPORT</td><td>< /td><td>11/09/2020 9:18 AM EST</td><td></td><td></td> 11/09/2020 09:18:27 AM [facility] LAB RESULTS (OUTSIDE/HISTORICAL) <td>LAB RESULTS (OUTSIDE/HISTORICAL)</td><td></td><td>11/06/2020 2:55 PM EST</td><td></td><td></td> 11/06/2020 02:55:57 PM EST [facility] Bronchospasm Evaluation 06/09/2020 12:00:00 AM EDT [facility] ([facility], ) Maximum Breathing Capacity, Maximal Voluntary Ventilation 06/09/2020 12:00:00 AM EDT [facility] ([facility] Plethysmography Determination Lung Volumes & Per Airway Resi st 06/09/2020 12:00:00 AM EDT [facility] DIFFUSING CAPACITY 06/09/2020 12:00:00 AM EDT [facility] ([facility], ) BLOOD COUNT COMPLETE AUTOMATED <td>CBC</td><td>Routine </td><td>05/11/2020 12:14 PM EDT</td><td> Preoperative testing</td><td> </td> 05/11/2020 12:14:00 PM EDT Preoperative testing [facility] Preoperative testing BASIC METABOLIC PANEL CALCIUM TOTAL <td>BASIC METABOLI C PANEL</td><td>Routine</td><td>05/11/2020 12:14 PM EDT</td><td> Preoperative testing</td><td> </td> 05/11/2020 12:14:00 PM EDT Preoperative testing [facility] Preoperative testing EKG 12-LEAD - CMAXX REPORT <td>EKG 12-LEAD - CMAXX REPORT</td><td></td><td>05/11/2020 11:23 AM EDT</td><td></td><td></td> 05/11/2020 11:23:16 AM EDT [facility] EKG 12-LEAD - CMAXX REPORT <td>EKG 12-LEAD - CMAXX REPORT</td><td></td><td>05/11/2020 11:23 AM EDT</td><td></td><td></td> 05/11/2020 11:23:16 AM EDT [facility] EKG 12-LEAD <td>EKG 12-LEAD</td><td>Rout ine</td><td>05/11/2020 11:23 AM EDT</td><td></td><td></td> 05/11/2020 11:23:16 AM EDT [facility] EKG 12-LEAD <td>EKG 12-LEAD</td><td>Rout ine</td><td>05/11/2020 11:23 AM EDT</td><td> Preoperative testing</td><td> </td> 05/11/2020 11:23:16 AM EDT Preoperative testing [facility] Preoperative testing Results ID Date Data Source [id number] 03/03/2021 10:30:00 AM EDT [facility] ([facility], ) Name Value Range Interpretation Code Description Data Natali rce(s) Supporting Document(s) PDFReport Laboratory test result [facility] ([facility], ) FVC-Pred 4.83 L [facility] ([facility], ) FVC-Pre 3.49 L [facility] ([facility], ) FVC-LLN 3.90 L [facility] ([facility], ) FVC-%Pred-Pre 72 L [facility] ([facility], ) Fev1-%Pred-Pre 47 L [facility] ([facility], ) Fev1-Pre 1.75 L [facility] ([facility], ) Fev1-Pred 3.68 L [facility] ([facility], ) Fev6-Pred 4.62 L [facility] ([facility], ) Fev1-LLN 2.89 L [facility] ([facility]) Fev6-Pre 3.49 L [facility] ([facility]) Fev6-%Pred-Pre 75 L [facility] ([facility], ) Kov6avf-Kdnj 76 % [facility] ([facility] ) Fev6-LLN 3.71 L [facility] ([facility]) Rky4yql-WXM 66 % [facility] ([facility]) Dda6fyn-%Pred-Pre 66 % [facility] ([facility]) Agw7lps-Vei 50 % [facility] ([facility]) Tjg7mpg-Wnvv 96 % [facility] ([facility]) Sbf0udk-Opl 100 % [facility] ([facility]) Ukn8kfc-%Pred-Pre 104 % [facility] ([facility]) FEFMax-Pre 2.42 L/E/sec [facility] ([facility], ) FEFMax-Pred 9.36 L/E/sec [facility] ([facility]) FEFMax-%Pred-Pre 25 L/E/sec [facility] ([facility]) FEFMax-LLN 7.04 L/E/sec [facility] ([facility]) [id number]-Lry 1.00 L/E/sec [facility] ([facility], ) Lxl4554-Gpia 3.07 L/E/sec [facility] ([facility], ) Kvq4991-%Pred-Pre 32 L/E/sec [facility] ([facility]) Ktw5757-MVP 1.47 L/E/sec [facility] ([facility], ) ExpTime-Pre 6.15 sec [facility] ([facility], ) Ogt7ayc6-Cyli 79 % [facility] ([facility], ) Dxl9dks3-Xox 50 % [facility] ([facility]) Ejj7kyk8-%Pred-Pre 63 % [facility] ([facility]) Gdm5cki4-WVE 70 % [facility] ([facility]) ID Date Data Source [id number] 01/01/2021 09:25:00 AM EDT [facility] FASTING: UNKNOWNReceived: 12/04/2020 at 05:32:00 QPT: [facility], [address] [facility], [address] [place] [address], [phone], Maninder Pickens MD Name Value Range Interpretation Code Description Data Natali rce(s) Supporting Document(s) Fungus identified in Unspecified specimen by Fungus stain [facility] CULTURE, FUNGUS W/SMEAR NOT HAIR, SKIN , BLOOD Micro Number: [id number] Test Status: Final Specimen Source: SPUTUM Specimen Quality: Adequate Smear: No fungal elements seen. Result: No fungal growth at 4 WeeksNO COLLECTION DATE RECEIVED. WE HAVE USEDTHE DATE THE SPECIMEN WAS [facility]. IF THISIS INCORRECT, PLEASE CONTACT CLIENT SERVICES.PHONE NUMBER: [phone] ID Date Data Source [id number] 12/01/2020 04:53:00 PM EDT [facility] Received: 12/01/2020 at 16:23:00 SYR : [facility], [address], [place], [address], Luis Alberto Espinoza MD,PHD,CAROLA Received: 12/01/2020 at 16:23:00 SYR : [facility], [address], [place], [address], Luis Alberto Espinoza MD,PHD,CAROLA Name Value Range Interpretation Code Description Data Natali rce(s) Supporting Document(s) Glucose [Mass/volume] in Serum or Plasma 120 mg/dL 65-99 Above high normal [facility] Fasting reference intervalFor someone without known diabetes, a glucose valuebetween 100 and 125 mg/dL is consistent withprediabetes and should be confirmed with afollow-up test. Urea nitrogen [Mass/volume] in Serum or Plasma 10 mg/dL 7 -25 Normal (applies to non-numeric results) [facility] Creatinine [Mass/volume] in Serum or Plasma 0.62 mg/dL 0.70 -1.33 Below low normal [facility] For patients >49 years of age, the refer ence limitfor Creatinine is approximately 13% higher for peopleidentified as -French. Glomerular filtration rate/1.73 sq M.pre dicted [Volume Rate/Area] in Serum, Plasma or Blood by Creatinine-based formula (MDRD) 109 mL/min/1.73m2 > OR = 60 Normal (applies to non-numeric results) [facility] Glomerular filtration rate/1.73 sq M pre dicted among blacks [Volume Rate/Area] in Serum or Plasma by Creatinine-based formula (MDRD) 127 mL/min/1.73m2 > OR = 60 Normal (applies to non-numeric results) [facility] Urea nitrogen/Creatinine [Mass Ratio] in Serum or Plasma 16 (rebecca c) 6-22 Normal (applies to non-numeric results) [facility] Sodium [Moles/volume] in Serum or Plasma 130 mmol/L 135-146 Below low normal [facility] Potassium [Moles/volume] in Serum or Plasma 4.3 mmol/L 3.5- 5.3 Normal (applies to non-numeric results) [facility] Chloride [Moles/volume] in Serum or Plasma 96 mmol/L 98-110 Belo w low normal [facility] Carbon dioxide, total [Moles/volume] in Serum or Plasma 28 mmol/ L 20-32 Normal (applies to non-numeric results) [facility] Calcium [Mass/volume] in Serum or Plasma 8.4 mg/dL 8.6-10.3 Below low normal [facility] Protein [Mass/volume] in Serum or Plasma 5.1 g/dL 6.1-8.1 Below low normal [facility] Albumin [Mass/volume] in Serum or Plasma 3.0 g/dL 3.6-5.1 Below low normal [facility] Globulin [Mass/volume] in Serum by calculation 2.1 g/dL (calc) 1 .9-3.7 Normal (applies to non-numeric results) [facility] Albumin/Globulin [Mass Ratio] in Serum or Plasma 1.4 (calc) 1.0-2.5 Normal (applies to non-numeric results) [facility] Bilirubin.total [Mass/volume] in Serum or Plasma 0.3 mg/dL 0.2-1.2 Normal (applies to non-numeric results) [facility] Alkaline phosphatase [Enzymatic activity/volume] in Serum or Plasma 87 U/L 35-144 Normal (applies to non-numeric results) [facility] Aspartate aminotransferase [Enzymatic activity/volume] in Serum or Plasma 19 U/L 10-35 Normal (applies to non-numeric results) [facility] Alanine aminotransferase [Enzymatic activity/volume] in Seru m or Plasma 13 U/L 9-46 Normal (applies to non-numeric results) [facility] ID Date Data Source [id number] 12/01/2020 04:53:00 PM EDT [facility] Received: 12/01/2020 at 16:23:00 SYR : [facility], [address], [place], [address], Luis Alberto Espinoza MD,PHD,CAROLA Received: 12/01/2020 at 16:23:00 SYR : [facility], [address], [place], [address], Luis Alberto Espinoza MD,PHD,CAROLA Name Value Range Interpretation Code Description Data Natali rce(s) Supporting Document(s) Leukocytes [#/volume] in Blood by Automated count 6.7 Thousand/u L 3.8-10.8 Normal (applies to non-numeric results) [facility] Erythrocytes [#/volume] in Blood by Automated count 3.15 Million /uL 4.20-5.80 Below low normal [facility] Hemoglobin [Mass/volume] in Blood 11.4 g/dL 13.2-17.1 Below low nor mal [facility] Hematocrit [Volume Fraction] of Blood by Automated count 32.2 % 38.5-50.0 Below low normal [facility] Erythrocyte mean corpuscular volume [Entitic volume] b y Automated count 102.2 fL 80.0-100.0 Above high normal [facility] Erythrocyte mean corpuscular hemoglobin [Entitic mass] by Automated count 36.2 pg 27.0-33.0 Above high normal [facility] Erythrocyte mean corpuscular hemoglobin concentration [Mass/volume] by Automated count 35.4 g/dL 32.0-36.0 Normal (applies to non-numeric results) [facility] Erythrocyte distribution width [Ratio] by Automated count 14.1 % 11.0-15.0 Normal (applies to non-numeric results) [facility] Platelets [#/volume] in Blood by Automated count 262 Thousand/uL 140-400 Normal (applies to non-numeric results) [facility] Platelet mean volume [Entitic volume] in Blood by Tina 9.6 fL 7.5-12.5 Normal (applies to non-numeric results) [facility] Neutrophils [#/volume] in Blood by Automated count 3136 cells/uL 7903-9084 Normal (applies to non-numeric results) [facility] Lymphocytes [#/volume] in Blood by Automated count 1635 cells/uL 850-3900 Normal (applies to non-numeric results) [facility] Monocytes [#/volume] in Blood by Automated count 1065 cells/uL 200-950 Above high normal [facility] Eosinophils [#/volume] in Blood by Automated count 824 cells/uL 15-500 Above high normal [facility] Basophils [#/volume] in Blood by Automated count 40 cells/uL 0-200 Normal (applies to non-numeric results) [facility] Neutrophils/100 leukocytes in Blood by Automated count 46.8 % 38-80 Normal (applies to non-numeric results) [facility] Lymphocytes/100 leukocytes in Blood by Automated count 24.4 % 15-49 Normal (applies to non-numeric results) [facility] Monocytes/100 leukocytes in Blood by Automated count 15.9 % 0-13 Above high normal [facility] Eosinophils/100 leukocytes in Blood by Automated count 12.3 % 0-8 Above high normal [facility] Basophils/100 leukocytes in Blood by Automated count 0.6 % 0-2 Normal (applies to non-numeric results) [facility] ID Date Data Source [id number] 12/01/2020 12:00:00 AM EDT [facility] Name Value Range Interpretation Code Description Data Natali rce(s) Supporting Document(s) SARS coronavirus 2 RNA Negative [facility] This lab was ordered by [facility] and reported by [facility]. ID Date Data Source [id number] 11/27/2020 12:00:00 AM EDT [facility] Name Value Range Interpretation Code Description Data Natali rce(s) Supporting Document(s) SARS coronavirus 2 RNA Negative [facility] This lab was ordered by [facility] and reported by [facility]. ID Date Data Source [id number] 11/24/2020 12:00:00 AM EDT [facility] Name Value Range Interpretation Code Description Data Natali rce(s) Supporting Document(s) SARS coronavirus 2 RNA Negative [facility] This lab was ordered by [facility] and reported by [facility]. ID Date Data Source [id number] 11/20/2020 02:06:17 PM [facility] Name Value Range Interpretation Code Description Data Natali rce(s) Supporting Document(s) Progress Note [facility] BWUXYq9pEwASOeJa79/ELJmwPTVdy9FtWJvgNGj9SIyaTUVvB4WxSNW3gN6eFKN2PReYQoPiMbCdTcMi [facility] [file] [id number] ID Date Data Source [id number] 11/20/2020 12:00:00 AM EST [facility] Name Value Range Interpretation Code Description Data Natali rce(s) Supporting Document(s) SARS coronavirus 2 RNA Negative [facility] This lab was ordered by [facility] and reported by [facility]. ID Date Data Source [id number] 11/17/2020 12:00:00 AM EST [facility] Name Value Range Interpretation Code Description Data Natali rce(s) Supporting Document(s) SARS coronavirus 2 RNA Negative [facility] This lab was ordered by [facility] and reported by [facility]. ID Date Data Source [id number] 11/13/2020 02:03:08 PM EST [facility] Name Value Range Interpretation Code Description Data Ntaali rce(s) Supporting Document(s) Discharge Summary [facility] NEQIUa4lCoKUGmPv16/DHJrzPLVyj6HoGNqgNPp5QPlbZFVcU8WnOWT8wN3fZUB1FJgJCxMxZlOsOvQ5 lbm MyRewLUkRzKEKpFdkXOcUeXSooQencmVRwFK7YuAC0CAUlF63bHBXvVHHgD0IdYTI8ADu+Eo4JRDAvhH JfNT3RAfzN1Vvpd+JI8vtK+p4xUdnYuQyWI+5QckeYRMhDp9Clk2WuTlhrMVrAk3xYpvm4e06hIxZEgU JD1hxCGDA911P7mIyVIMLgj6HhEBnycAaf+9VyNDZZ sV9/NeQ2JqcRa5+rEJAPtdnWVQnIM0A67XZrxR7nOEgdT4XOFOsb6+WvnGXSMhyG2YNfHo4k79/rNXPZ +ZS45GnQIe4jrlo3qCT/UG7GTt4GUwGYft6UQzANpHEjU4XM5jNQHUEZlUoPJJ6UbgRl2Ojt+Danish+d3RL [file] ICAgICAgICAgICAgICAgICAgICAgICAgICAgICAgICAgICAgICAgICAgICAgICAgICAgICAgICAgICAg ICAgICAgICAgICAgICAgICAgICAgICAgICAgICAgICAgDQogICAgICAgICAgICAgICAgICAgICAgICAg ICAgICAgICAgICAgICAgICAgICAgICAgICAgICAgIC AgICAgICAgICAgICAgICAgICAgICAgICAgICAgICAgICAgICAgICAgICAgDQogICAgICAgICAgICAgIC AgICAgICAgICAgICAgICAgICAgICAgICAgICAgICAgICAgICAgICAgICAgICAgICAgICAgICAgICAgIC AgICAgICAgICAgICAgICAgICAgICAgICAgDQogICAg ICAgICAgICAgICAgICAgICAgICAgICAgICAgICAgICAgICAgICAgICAgICAgICAgICAgICAgICAgICAg ICAgICAgICAgICAgICAgICAgICAgICAgICAgICAgICAgICAgDQogICAgICAgICAgICAgICAgICAgICAg ICAgICAgICAgICAgICAgICAgICAgICAgICAgICAgIC AgICAgICAgICAgICAgICAgICAgICAgICAgICAgICAgICAgICAgICAgICAgICAgDQogICAgICAgICAgIC AgICAgICAgICAgICAgICAgICAgICAgICAgICAgICAgICAgICAgICAgICAgICAgICAgICAgICAgICAgIC AgICAgICAgICAgICAgICAgICAgICAgICAgICAgDQog ICAgICAgICAgICAgICAgICAgICAgICAgICAgICAgICAgICAgICAgICAgICAgICAgICAgICAgICAgICAg ICAgICAgICAgICAgICAgICAgICAgICAgICAgICAgICAgICAgICAgDQogICAgICAgICAgICAgICAgICAg ICAgICAgICAgICAgICAgICAgICAgICAgICAgICAgIC AgICAgICAgICAgICAgICAgICAgICAgICAgICAgICAgICAgICAgICAgICAgICAgICAgDQogICAgICAgIC AgICAgICAgICAgICAgICAgICAgICAgICAgICAgICAgICAgICAgICAgICAgICAgICAgICAgICAgICAgIC AgICAgICAgICAgICAgICAgICAgICAgICAgICAgICAg DQogICAgICAgICAgICAgICAgICAgICAgICAgICAgICAgICAgICAgICAgICAgICAgICAgICAgICAgICAg OZAoTFScPWPxOCIkAHFkCJKmSDBzOQWaTKKkEXMyNYXoMDGsUMNwVCCmAAd3U5osQJTwUOSyXF3wDCs5 Jz8+NViUKrCdVCY9weSzxP7LFG1xr5MdXOocZFDan0 WsNLy5JO4EMSEyJQudYA2UHPddtl0HUALrTWCvuIGCb8ukJpMoACZ7XPQgWxdzFJ5VFUJqK7ibxrMmFT ZlPNOWUGegKUNMZEgiBZRYTK3CNhZnZ4EtbE48GVRLVi2+HXcwtaZeOcbCRqEbRMZxn4LdTAs0HN1KIH JkYaqzg4HwJwMnGPQJBWeiRF3NSQA9MEDrBUYiBe6C NZRhM409ezBbBV7ZGj1PWaUoML1wxk8ZZxPuICUnTiqDBcv0EGfpXW8HuUTdSMzWmCPmyOKtH1NgN7Ab dCLfaMMwsFTFlRNsDJGcLPUjQKX8gX9eLM8ABYF0HTScKB1lKCGeAUFhBhJ8WXBFLT2SOOHqOHXzvUSz NHMaBAVIJF6VPKhwEYW0YMAcpjDleQPaUUygFK6XZD JlbnQgMjEgMCBSDQo+Ih2NYZ3me0FjPKvrGxZeTT9zok5EGYzRBuTmN8I7dEAdU4C3JBmwJs2PSCPnDL DbZHylHYTCUSmdFR0XBJ2tbaC4HN7XqYRyXOOwOKKsmLNnHNq6P46tfETnYRpnSE9CGDN+Dee+Pg0KIC KuVEMxNROvSsLhSEVCEiIdJ8FuO3FNi4DcZ8MdJX87 dQepmtPpXOngQF3UPQ1dQUJmHJNDOX6CzHPzxW8clqFbIJWpYXWGXtZtE01rpQLwYFRoNBRkZAHpFo5P KREcE0AklbAolNrvvkSgCJPqQFLKEH2DRZqoknThuVMtvXqwVB77dEpaAZ2KKu5IRrJtAE1sip9YnCEf Er6BFVRzWP0UXTWuJRSiQIErTOR5GQWhGiQvERvvMT SoVIFrDKZ7UVYtLGOmKL2UXpKrJGFrFHN8SszvQLIpBRXoyq9BTPZcNOWuDgJ5MmQmSVDoLSZuREwvSC JuWURuVDY0JKEwGGIhRS9IYeCpSIGtDYZ4BkmaFPEiJWPdda2NMEOfYRMoPdMdFARiGHAnROAyPQnoBM PzITL2YXFrIOUdOHAzLN4ZWqKkUHAoPJZ5LYItYBUf FLRyuz2NVXYmVTMwOtX0VcKnYZArVPAiMZcbRJIrHLV0KPVqNPChKRZmVR7BJjYhHLHeLZz2SgKeIECg QNBpsl8VHBEiLXIaTsRyPpOrXVGdENJuVDxeYEFdWXO7AXHuGLIaEOGjIY4FVnMjOWKsRLf6DIkoHQRm VMNepx8EEUMiWLEoMZm6HFKhXODoYWPdBYceZBWjXM W4PHV9EPWdTSSvHR0YUdMiQLUrCLIsSZanZNNnTEBmne0XFFTeEPDgZPRcFyQcRRGzWDSeYSsmZDYjUR XuIPCwNHQhZANnYT4DUsFuMBOdGCO9QcKsKSUiSAHlkm7FWVGiCPAyVvQ9DvJuPXUsZSNgCQtwMEQoOY AxNCN8YPJiUETpKB4UUeTgYERzMFS1UUwkHURiTQJj tr3HyFNgoWaaxr0JMKoOLq8WpQhjJCX1MYahOf1laEKbLuJvWJXBXt9IvwDwNNWqDOVKKIgdCPYfTJYb MiMkK1PrNCjwVLAqDaN4OfOaBUTpVaToMxEqByweDfR4IjQkQ4F6LdAeBOU4PNCaEmeqIBT2OLThZXDo C5JbFIC+FR7uDHv+Au1Bi7AwizU5ozCjQIsoSgs6St8GOMWXL9OBNo== ID Date Data Source [id number] 11/13/2020 10:28:26 AM [facility] Name Value Range Interpretation Code Description Data Natali rce(s) Supporting Document(s) Operative Note [facility] CIPGIk6xMhIOJlBu78/NMAzoKJBwo8IrSYxuXOk5KJxdVWHwQ8UaSJB3cD2jAUR9DMqZAmFhChNhKjT4 lbm [file] ZG1TZn6ELvD9YWZ4ySTgQc7FBEC0YBRJUsPbGA4JOOr= ID Date Data Source [id number] 11/12/2020 05:57:00 PM EST [facility] Name Value Range Interpretation Code Description Data Natali rce(s) Supporting Document(s) SARS-CoV-2 RNA 2019 nCoV Real-Time RT-PCR: NOT DETECTED [facility] This lab was ordered by [facility] and reported by [facility]. 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 [facility] Patient has symptoms related to [facility] When did you start to experience these symptoms [Date and time] [Phen X] [facility] Patient was hospitalized because of this condition [facility] patient was admitted to ICU for [facility] Patient resides in a congregate care setting [facility] status [facility] ID Date Data Source [id number] 11/12/2020 03:27:40 PM [facility] XR MANDIBLE LESS THAN 4 VIEWS [id number] RESULTInterpreted by:Kimi Marroquin MDINDICATION: Evaluate mandible hardware.TECHNIQUE: AP and lateral radiograph of the face including the mandibles.COMPARISON: CT max face, 09/01/2014.FINDINGS/IMPRESSION:There is intact anterior plate and screw fixation hardware overlying the mandibular defect. Multiple surgical clips project over the neck bilaterally. Degenerative changes are noted in the visualized cervical spine. Upper portion of the endotracheal tube is seen in place.This document has been electronically signed by Donny Birmingham MD on 11/12/2020 3:25 PM Name Value Range Interpretation Code Description Data Natali rce(s) Supporting Document(s) ID Date Data Source [id number] 11/12/2020 10:57:30 AM [facility] Name Value Range Interpretation Code Description Data Natali rce(s) Supporting Document(s) History and Physical [facility] NTIUXw8sXyALJtBo84/KLXtqGFGge4BzNBupSCb7HDumCEObQ7GuKXI3nJ9xSON0QTkRWmJdDbPdZgF0 lbm [file] AgICAgICAgICAgICAgICAgICAgICAgICAgICAgICAgICAgICAgICAgICAgICAgICAgICAgICAgICAgIC AgICAgICAgICAgICAgICAgICANCiAgICAgICAgICAgICAgICAgICAgICAgICAgICAgICAgICAgICAgIC AgICAgICAgICAgICAgICAgICAgICAgICAgICAgICAg ICAgICAgICAgICAgICAgICAgICAgICAgICAgICANCiAgICAgICAgICAgICAgICAgICAgICAgICAgICAg ICAgICAgICAgICAgICAgICAgICAgICAgICAgICAgICAgICAgICAgICAgICAgICAgICAgICAgICAgICAg ICAgICAgICAgICANCiAgICAgICAgICAgICAgICAgIC AgICAgICAgICAgICAgICAgICAgICAgICAgICAgICAgICAgICAgICAgICAgICAgICAgICAgICAgICAgIC AgICAgICAgICAgICAgICAgICAgICANCiAgICAgICAgICAgICAgICAgICAgICAgICAgICAgICAgICAgIC AgICAgICAgICAgICAgICAgICAgICAgICAgICAgICAg ICAgICAgICAgICAgICAgICAgICAgICAgICAgICAgICANCiAgICAgICAgICAgICAgICAgICAgICAgICAg ICAgICAgICAgICAgICAgICAgICAgICAgICAgICAgICAgICAgICAgICAgICAgICAgICAgICAgICAgICAg ICAgICAgICAgICAgICANCiAgICAgICAgICAgICAgIC AgICAgICAgICAgICAgICAgICAgICAgICAgICAgICAgICAgICAgICAgICAgICAgICAgICAgICAgICAgIC AgICAgICAgICAgICAgICAgICAgICAgICANCiAgICAgICAgICAgICAgICAgICAgICAgICAgICAgICAgIC AgICAgICAgICAgICAgICAgICAgICAgICAgICAgICAg ICAgICAgICAgICAgICAgICAgICAgICAgICAgICAgICAgICANCiAgICAgICAgICAgICAgICAgICAgICAg ICAgICAgICAgICAgICAgICAgICAgICAgICAgICAgICAgICAgICAgICAgICAgICAgICAgICAgICAgICAg ICAgICAgICAgICAgICAgICANCiAgICAgICAgICAgIC AgICAgICAgICAgICAgICAgICAgICAgICAgICAgICAgICAgICAgICAgICAgICAgICAgICAgICAgICAgIC AgICAgICAgICAgICAgICAgICAgICAgICAgICANCjw/xOQbX3kqhBZuacK5Z4bsEq0YRk6UVQ7yn0TzTW MjCHlqjyVwLtyQCnQmJDCvTmlJHfo9LRsmJI5HtPQp Q2YzC2DzHSstKX9BHKMqMBYdwLIeTAUgLDDzCiS2NZJgSIgtML2ObFBuQSswUFGjAXGsVeDkZEKtVNTa MZZjXGDjEDUETNHoOVKuRbZxHHhbCY7Rj8YevUS1AUg+Yz6RYM4me2IoCRjnFhZjYP3tzx1NEXyJXxDe W5AhqsD5HGY8OPQdAk4VYPXhRXXmqQOvJAFyLRCHTa JuJ3OeqI60HRYWXj7+JHsgwxIuOxjAVzL3HFTjh0ZuOIn5UX3AGASoZNh3zWGqERCHRCL6VAdgkhNgxH OeVHwzrLYnWN0aURZAKgAMMUZ1ZGTvBG1eFBSeLOM0AmRmQHKOAI4AMWIqHOBllHOzCPBrWTJXRY1WOW ujKUD5NGSxkvEqiMBlZQczOG0LVGWexdYuZwUkEYWP DQo+Yk4FXT9fj1IvWSvsTESqCJ7tfm9JSIrQYuWnX0H2pQVoN8R0LDrlZq4HDDCzINJbDfJtCEKMWCkd NL7XYZ0bzjQ6XD8OcVMrEHJqUSAorLSgDHq0A50uoWUsPIkwML4DRYU+Dee+Lq5MISSjDWCmHHUfIgLv NAZSKiGvB1PgU4LDr5KkN6YuSL54hEslaiXmDCpsOF 4QZU2rAAGnYEEQCO7EjVYitJ5dkiDuUbXbBWPABeVuZ07bcGTxZIZdDDWrVSXhOt2CKNFaR3RgloTynF cbdnCtAPNyIYRAOU8FQRvzwnTarUVglSktPA24nUhyQJ5YUh9IIaGiOF9zpt1ToYLjYw8XKEHnGw4FVH MkBVWrBHDnGWE1FZSgRzVsJIkeDTJjTGJhOTS1TLFa WUUsAX9IUxTfLJVnFqV7IsEzJKHuOYLanh9RHSWwPAYfThLsTmCfDNWxPBDhFWscJCJlWVIhGHT2KPTk PTKlUI5HQrTqKULmQVZ0ByCvOCAySHDsax0CMUHuJZWeJshcQiQmEGTzAAAdXQggEUQqYOL4ATtiOOYj AQLnAK9XMkGwKAKtFGPrGPazNPEzTKUxgx6CBJEsBO YfMDk4HBSiIKXdDCCjJEfyCQPmNIR5HCZ2IBVzZCWfMO6TEkTpWFVwEWLuOZIvDEGjVWWipt8JAXRyPL OsOXU4ZCBfVUAcBGNiTJegQIEkTKRmUDs0TCXsCVWzIJ6YHeCaJXJvNHWoYIKyKOExOHTomm8XAANdWY OpFPT9ETZsLYOvMRVgQLaxTDBaFPD1OuTeJNWtYZRo OF9HJuUrMNFfGBN2NHFeNOUwFPXzmn9XQGSjOIGiSbDjBoEuHCXlHUDzDLypYDClRNC2YmP4NCTmMETl YG0TBkHzCSFqORG4EIBeOLZgGYDumj2NAXUiHNGcJjs2BrTtDOFkGLNiWNtwTXQpFHG7JXUrAFQpXPNl ZR5KVoDuUIKkOFrwAmUnJMIkRDOfuf5GYBVxAUBfGY LuSAUuYPQdITGoXArnUGBxMXM3AWU1FOCvUHMhMU0XBaEiGZZlSvRjMTSlRPKhXYLksz4WSEQfHSFmDY F4QYPpXIHlGGTbYGrxSUOvUADdNINqEPPaGECrAD8SUnWcTOBtBzZ1LaMhNTLzQRZkky0ADHJuUKHrWL C0NnZkJLBuOZClMMjzKUNlQINcBJEpGCJvXJNiFJ2D OzUmQHVsEmMgPaLmLQSgCSEald0PNRHjSGYuPsqjGfOwYMCxSFSmQTwiESGbBPKeOHJ4IEKeZNCmSZ9T BiVfJFGdSoK2YDRjRDJbRUAwug7MzAGcrUfmfw6ENVnDCp6CuUklOQG5IMkbLc3hrPHqDFBuYKBZBn4G vsQiKWOfOPXMTBsuPGSnRMVxB9HfDAErGOCcA4DrCJ NxBCPpBYV0CpVkL3U1UlXkHcQ6VGK6YiQ5LbP0KcPzYAFuWxJ4LURfEus7ECCsIojnTjK+NG5aULe+Pg 0Pq8KlfwB1izMfGWsrUEU4JD4ZESTIO6TIFi== ID Date Data Source [id number] 11/19/2020 06:09:00 AM [facility] Dermatopathology ConsultationName: FRANK WEIRMRN: [id number] Number: [id number] Date: 11/12/2020 00:00Received Date: 11/13/2020 10:15Physician(s): SAE SANCHEZ MD TATUM, SHERARD A,HOMARpecimen(s) ReceivedA: Chin wound, previous cancer patietnClinical HistoryRetained hardware mandible. DiagnosisSKIN CHIN, BIOPSY: - SCAR AND LICHEN SIMPLEX CHRONICUS, TRAUMATIZEDElectronically Signed By Jose Wolf M.D., Attending Pathologist11/19/2020 06:09:55 Unless 'gross-only' is specified, the final diagnosis is based on amicroscopic examination of players club representative sections of tissue.Gross DescriptionThe specimen is received in formalin labeled with the patient's name "Fanny" and "chin wound, previous cancer patient". It consists of fourirregular fragments of petty-purple to red, rubbery soft tissue rangingfrom 0.3 cm to 1.1 cm. The larger fragments are surfaced with minimalpossible steele-white skin. The possible margins are inked black and thespecimen is submitted in toto in one cassette.TW/pmw This report may include one or more immunohistochemical stain results thatuse analyte specific reagents. All positive and negative controls havebeen reviewed by the attending pathologist and are satisfactory. The testswere developed and their performance characteristics determined by [facility] Pathology [facility]. They have not been cleared or approved by the USFood and Drug Administration. The FDA has determined that such clearanceor approval is not necessary. Name Value Range Interpretation Code Description Data Natali rce(s) Supporting Document(s) ID Date Data Source [id number] 11/09/2020 11:38:39 AM [facility] Name Value Range Interpretation Code Description Data [facility](s) Supporting Document(s) Progress Note [facility] [id number]/[id number]FPU7HFxLGoWrBgVzBhId [facility] [file] [id number] ID Date Data Source [id number] 11/09/2020 11:38:00 AM EST [facility] Name Value Range Interpretation Code Description Data Natali rce(s) Supporting Document(s) SARS-CoV-2 RNA 2019 nCoV Real-Time RT-PCR: NOT DETECTED [facility] This lab was ordered by [facility] and reported by [facility]. 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 [facility] Patient has symptoms related to [facility] When did you start to experience these symptoms [Date and time] [Phen X] [facility] Patient was hospitalized because of this [facility] patient was admitted to ICU for [facility] Patient resides in a congregate care setting [facility] status [facility] ID Date Data Source [id number] 09/28/2020 11:10:00 AM EST [facility]) Name Value Range Interpretation Code Description Data Natali rce(s) Supporting Document(s) total 25(oh) vitamin D 10.0 NG/mL 30.0-100.0 Below low normal T otal 25(Oh) Vitamin D [facility]) ID Date Data Source [id number] 09/28/2020 11:10:00 AM EST [facility]) Name Value Range Interpretation Code Description Data Natali rce(s) Supporting Document(s) iron (fe) 62 ug/dL 65-175 Below low normal Iron (Fe) [facility]) ID Date Data Source [id number] 09/28/2020 11:10:00 AM [facility] Name Value Range Interpretation Code Description Data Natali rce(s) Supporting Document(s) glucose, fasting 69 mg/dL 70-100 Below low normal Glucose, Fast ing [facility]) blood urea nitrogen 7 mg/dL 7-18 Blood Urea Nitro gen DR[facility] ([facility]) creatinine for GFR 0.49 mg/dL 0.70-1.30 Below low normal Creatinine for GFR CE ([facility]) glomerular filtration rate > 60.0 >56 Glomerula r Filtration Rate CE ([facility]) sodium level 135 mEq/L 136-145 Below low normal Sodium Level ATHE NA ([facility]) potassium serum 5.1 mEq/L 3.5-5.1 Potassium Serum ATHE ([facility]) chloride level 102 mEq/L 98-107 Chloride Level CE ([facility]) carbon dioxide level 24 mEq/L 21-32 Carbon Dioxide Level CE ([facility]) calcium level 9.1 mg/dL 8.5-10.1 Calcium Level CE ( [facility]) anion gap 9 mEq/L 8-16 Anion Gap CE ([facility]) ALT/SGPT 55 U/L 12-78 ALT/SGPT CE ([facility]) AST/SGOT 36 U/L 7-37 AST/SGOT CE ([facility]) alkaline phosphatase 190 U/L 45-117 Above high normal Alkaline Phosphatase CE ([facility]) bilirubin,total 0.7 mg/dL 0.2-1.0 Bilirubin,total ATHE ([facility]) total protein 6.1 gm/dL 6.4-8.2 Below low normal Total Protein AT [facility] ([facility]) albumin 3.0 gm/dL 3.2-5.2 Below low normal Albumin CE ( [facility]) albumin/globulin ratio Albumin/globu aldo Ratio CE ([facility]) ID Date Data Source [id number] 09/28/2020 11:10:00 AM EST [facility] ([facility]) Name Value Range Interpretation Code Description Data Natali rce(s) Supporting Document(s) white blood count 5.1 10 4.0-10.0 White Blood Count CE ([facility]) red blood count 3.62 10 4.30-6.10 Below low normal Red Blood Coun t CE ([facility]) hemoglobin 13.5 g/dL 13.5-17.5 Hemoglobin CE ([facility]) hematocrit 39.9 % 42.0-52.0 Below low normal Hematocrit CE ( [facility]) mean corpuscular volume 110.2 fL 80.0-96.0 Above high normal Mean Corpuscular Volume CE ([facility]) mean corpuscular hemoglobin 37.3 pg 27.0-33.0 Above high no rmal Mean Corpuscular Hemoglobin CE ([facility]) red cell distribution width 16.5 % 11.5-14.5 Above high no rmal Red Cell Distribution Width CE ([facility]) mean corpuscular HGB conc 33.8 g/dL 32.0-36.5 Mean Corpu scular HGB Conc DR[facility] ([facility]) platelet count, automated 406 10 150-450 Platelet C ount, Automated CE ([facility]) neutrophils % 58.2 % 36.0-66.0 Neutrophils % DR[facility] ( [facility]) lymph % 23.0 % 24.0-44.0 Below low normal Lymph % DR[facility] ( [facility]) mono % 12.3 % 0.0-5.0 Above high normal [place] % DR[facility] ([facility]) eos % 4.7 % 0.0-3.0 Above high normal Eos % [facility] ([facility]) baso % 1.4 % 0.0-1.0 Above high normal Baso % [facility] ([facility]) immature granulocyte % 0.4 % 0-3.0 Immature Gran ulocyte % DR[facility] ([facility]) nucleated red blood cell % 0.0 % 0-0 Nucleated Red Blood Cell % CE ([facility]) neutrophils # 3.0 10 1.5-8.5 Neutrophils # DRIFT ( [facility]) lymph # 1.2 10 1.5-5.0 Below low normal Lymph # CE ( [facility]) mono # 0.6 10 0.0-0.8 [place] # CE ([facility]) eos # 0.2 10 0.0-0.5 Eos # CE ([facility]) baso # 0.1 10 0.0-0.2 Baso # CE ([facility]) ID Date Data Source [id number] 09/28/2020 11:10:00 AM EST CE ([facility]) Name Value Range Interpretation Code Description Data Natali rce(s) Supporting Document(s) total 25(oh) vitamin D 10.0 NG/mL 30.0-100.0 Below low normal T otal 25(Oh) Vitamin D [facility] ([facility]) ID Date Data Source [id number] 09/28/2020 11:10:00 AM EST CE ([facility]) Name Value Range Interpretation Code Description Data Natali rce(s) Supporting Document(s) iron (fe) 62 ug/dL 65-175 Below low normal Iron (Fe) [facility] ( [facility]) ID Date Data Source [id number] 09/28/2020 11:10:00 AM EST CE ([facility]) Name Value Range Interpretation Code Description Data Natali rce(s) Supporting Document(s) glucose, fasting 69 mg/dL 70-100 Below low normal Glucose, Fast ing CE ([facility]) blood urea nitrogen 7 mg/dL 7-18 Blood Urea Nitro gen CE ([facility]) glomerular filtration rate > 60.0 >56 Glomerula r Filtration Rate CE ([facility]) creatinine for GFR 0.49 mg/dL 0.70-1.30 Below low normal Creatinine for GFR CE ([facility]) sodium level 135 mEq/L 136-145 Below low normal Sodium Level ATHE NA ([facility]) potassium serum 5.1 mEq/L 3.5-5.1 Potassium Serum ATHE NA ([facility]) chloride level 102 mEq/L 98-107 Chloride Level CE ([facility]) carbon dioxide level 24 mEq/L 21-32 Carbon Dioxide Level CE ([facility]) anion gap 9 mEq/L 8-16 Anion Gap CE ([facility]) calcium level 9.1 mg/dL 8.5-10.1 Calcium Level CE ( [facility]) ALT/SGPT 55 U/L 12-78 ALT/SGPT CE ([facility]) AST/SGOT 36 U/L 7-37 AST/SGOT CE ([facility]) bilirubin,total 0.7 mg/dL 0.2-1.0 Bilirubin,total ATHE ([facility]) alkaline phosphatase 190 U/L 45-117 Above high normal Alkaline Phosphatase CE ([facility]) total protein 6.1 gm/dL 6.4-8.2 Below low normal Total Protein AT [facility] ([facility]) albumin/globulin ratio Albumin/globu aldo Ratio CE ([facility]) albumin 3.0 gm/dL 3.2-5.2 Below low normal Albumin CE ( [facility]) ID Date Data Source [id number] 09/28/2020 11:10:00 AM EST CE ([facility]) Name Value Range Interpretation Code Description Data Natali rce(s) Supporting Document(s) white blood count 5.1 10 4.0-10.0 White Blood Count CE ([facility]) hemoglobin 13.5 g/dL 13.5-17.5 Hemoglobin CE ([facility]) red blood count 3.62 10 4.30-6.10 Below low normal Red Blood Coun t CE ([facility]) hematocrit 39.9 % 42.0-52.0 Below low normal Hematocrit CE ( [facility]) mean corpuscular volume 110.2 fL 80.0-96.0 Above high normal Mean Corpuscular Volume CE ([facility]) mean corpuscular hemoglobin 37.3 pg 27.0-33.0 Above high no rmal Mean Corpuscular Hemoglobin CE ([facility]) mean corpuscular HGB conc 33.8 g/dL 32.0-36.5 Mean Corpu scular HGB Conc CE ([facility]) red cell distribution width 16.5 % 11.5-14.5 Above high no rmal Red Cell Distribution Width CE ([facility]) platelet count, automated 406 10 150-450 Platelet C ount, Automated CE ([facility]) neutrophils % 58.2 % 36.0-66.0 Neutrophils % CE ( [facility]) mono % 12.3 % 0.0-5.0 Above high normal [place] % CE ([facility]) lymph % 23.0 % 24.0-44.0 Below low normal Lymph % DRIFT ( [facility]) eos % 4.7 % 0.0-3.0 Above high normal Eos % DR[facility] ([facility]) baso % 1.4 % 0.0-1.0 Above high normal Baso % DR[facility] ([facility]) immature granulocyte % 0.4 % 0-3.0 Immature Gran ulocyte % DR[facility] ([facility]) nucleated red blood cell % 0.0 % 0-0 Nucleated Red Blood Cell % DR[facility] ([facility]) neutrophils # 3.0 10 1.5-8.5 Neutrophils # CE ( [facility]) lymph # 1.2 10 1.5-5.0 Below low normal Lymph # CE ( [facility]) mono # 0.6 10 0.0-0.8 [place] # CE ([facility]) eos # 0.2 10 0.0-0.5 Eos # CE ([facility]) baso # 0.1 10 0.0-0.2 Baso # CE ([facility]) ID Date Data Source [id number] 09/14/2020 03:58:00 AM EST [facility] ([facility]) Name Value Range Interpretation Code Description Data Natali rce(s) Supporting Document(s) magnesium level 2.0 mg/dL 1.8-2.4 Magnesium Level ATHE NA ([facility]) ID Date Data Source [id number] 09/14/2020 03:58:00 AM EST [facility] ([facility]) Name Value Range Interpretation Code Description Data Natali rce(s) Supporting Document(s) glucose, fasting 86 mg/dL 70-100 Glucose, Fasting AT [facility]) blood urea nitrogen 18 mg/dL 7-18 Blood Urea Nitro gen DRIFT ([facility]) creatinine for GFR 0.72 mg/dL 0.70-1.30 Creatinine for GF R DR[facility] ([facility]) glomerular filtration rate > 60.0 >56 Glomerula r Filtration Rate DR[facility] ([facility]) sodium level 136 mEq/L 136-145 Sodium Level DRIFT ([facility]) potassium serum 4.4 mEq/L 3.5-5.1 Potassium Serum ATH NA [facility]) chloride level 100 mEq/L 98-107 Chloride Level DR[facility] ([facility]) carbon dioxide level 29 mEq/L 21-32 Carbon Dioxide Level [facility]) anion gap 7 mEq/L 8-16 Below low normal Anion Gap DRIFT ( [facility]) calcium level 7.7 mg/dL 8.5-10.1 Below low normal Calcium Level AT [facility]) ID Date Data Source [id number] 09/14/2020 03:58:00 AM EST [facility] ([facility]) Name Value Range Interpretation Code Description Data Natali rce(s) Supporting Document(s) white blood count 5.9 10 4.0-10.0 White Blood Count DR[facility] ([facility]) red blood count 3.21 10 4.30-6.10 Below low normal Red Blood Coun t DR[facility] ([facility]) hemoglobin 11.7 g/dL 13.5-17.5 Below low normal Hemoglobin DRIFT ( [facility]) hematocrit 36.4 % 42.0-52.0 Below low normal Hematocrit [facility]) mean corpuscular volume 113.4 fL 80.0-96.0 Above high normal Mean Corpuscular Volume DR[facility] ([facility]) mean corpuscular hemoglobin 36.4 pg 27.0-33.0 Above high no rmal Mean Corpuscular Hemoglobin CE ([facility]) red cell distribution width 15.2 % 11.5-14.5 Above high no rmal Red Cell Distribution Width CE ([facility]) mean corpuscular HGB conc 32.1 g/dL 32.0-36.5 Mean Corpu scular HGB Conc CE ([facility]) nucleated red blood cell % 0.0 % 0-0 Nucleated Red Blood Cell % CE ([facility]) platelet count, automated 160 10 150-450 Platelet C ount, Automated CE ([facility]) ID Date Data Source [id number] 09/14/2020 03:58:00 AM EST [facility]) Name Value Range Interpretation Code Description Data Natali rce(s) Supporting Document(s) magnesium level 2.0 mg/dL 1.8-2.4 [facility] ID Date Data Source [id number] 09/14/2020 03:58:00 AM EST [facility] ([facility]) Name Value Range Interpretation Code Description Data Natali rce(s) Supporting Document(s) glucose, fasting 86 mg/dL 70-100 Glucose, Fasting AT [facility] ([facility]) creatinine for GFR 0.72 mg/dL 0.70-1.30 Creatinine for GF R CE ([facility]) blood urea nitrogen 18 mg/dL 7-18 Blood Urea Nitro gen CE ([facility]) glomerular filtration rate > 60.0 >56 Glomerula r Filtration Rate CE ([facility]) potassium serum 4.4 mEq/L 3.5-5.1 Potassium Serum ATHE NA ([facility]) sodium level 136 mEq/L 136-145 Sodium Level CE ([facility]) chloride level 100 mEq/L 98-107 Chloride Level CE ([facility]) carbon dioxide level 29 mEq/L 21-32 Carbon Dioxide Level DR[facility] ([facility]) anion gap 7 mEq/L 8-16 Below low normal Anion Gap DR[facility] ( [facility]) calcium level 7.7 mg/dL 8.5-10.1 Below low normal Calcium Level AT [facility]) ID Date Data Source [id number] 09/14/2020 03:58:00 AM EST [facility] ([facility]) Name Value Range Interpretation Code Description Data Natali rce(s) Supporting Document(s) white blood count 5.9 10 4.0-10.0 White Blood Count DR[facility] ([facility]) hemoglobin 11.7 g/dL 13.5-17.5 Below low normal Hemoglobin DRIFT ( [facility]) red blood count 3.21 10 4.30-6.10 Below low normal Red Blood Coun t DR[facility] ([facility]) hematocrit 36.4 % 42.0-52.0 Below low normal Hematocrit DR[facility] ( [facility]) mean corpuscular volume 113.4 fL 80.0-96.0 Above high normal Mean Corpuscular Volume DR[facility] ([facility]) mean corpuscular hemoglobin 36.4 pg 27.0-33.0 Above high no rmal Mean Corpuscular Hemoglobin DR[facility] ([facility]) mean corpuscular HGB conc 32.1 g/dL 32.0-36.5 Mean Corpu scular HGB Conc DR[facility] ([facility]) platelet count, automated 160 10 150-450 Platelet C ount, Automated CE ([facility]) red cell distribution width 15.2 % 11.5-14.5 Above high no rmal Red Cell Distribution Width [facility] ([facility]) nucleated red blood cell % 0.0 % 0-0 Nucleated Red Blood Cell % [facility] ([facility]) ID Date Data Source [id number] 09/14/2020 03:58:00 AM EST CE ([facility]) Name Value Range Interpretation Code Description Data Natali rce(s) Supporting Document(s) magnesium level 2.0 mg/dL 1.8-2.4 Magnesium Level ATHE NA ([facility]) ID Date Data Source [id number] 09/14/2020 03:58:00 AM EST CE ([facility]) Name Value Range Interpretation Code Description Data Natali rce(s) Supporting Document(s) glucose, fasting 86 mg/dL 70-100 Glucose, Fasting AT [facility] ([facility]) blood urea nitrogen 18 mg/dL 7-18 Blood Urea Nitro gen CE ([facility]) creatinine for GFR 0.72 mg/dL 0.70-1.30 Creatinine for GF R CE ([facility]) glomerular filtration rate > 60.0 >56 Glomerula r Filtration Rate CE ([facility]) sodium level 136 mEq/L 136-145 Sodium Level CE ([facility]) potassium serum 4.4 mEq/L 3.5-5.1 Potassium Serum ATHE ([facility]) chloride level 100 mEq/L 98-107 Chloride Level [facility] ([facility]) carbon dioxide level 29 mEq/L 21-32 Carbon Dioxide Level [facility] ([facility]) anion gap 7 mEq/L 8-16 Below low normal Anion Gap DR[facility] ( [facility]) ID Date Data Source [id number] 09/14/2020 03:58:00 AM EST CE ([facility]) Name Value Range Interpretation Code Description Data Natali rce(s) Supporting Document(s) white blood count 5.9 10 4.0-10.0 White Blood Count [facility] ([facility]) red blood count 3.21 10 4.30-6.10 Below low normal Red Blood Coun t CE ([facility]) hemoglobin 11.7 g/dL 13.5-17.5 Below low normal Hemoglobin CE ( [facility]) hematocrit 36.4 % 42.0-52.0 Below low normal Hematocrit CE ( [facility]) mean corpuscular volume 113.4 fL 80.0-96.0 Above high normal Mean Corpuscular Volume CE ([facility]) mean corpuscular HGB conc 32.1 g/dL 32.0-36.5 Mean Corpu scular HGB Conc CE ([facility]) mean corpuscular hemoglobin 36.4 pg 27.0-33.0 Above high no rmal Mean Corpuscular Hemoglobin CE ([facility]) red cell distribution width 15.2 % 11.5-14.5 Above high no rmal Red Cell Distribution Width CE ([facility]) nucleated red blood cell % 0.0 % 0-0 Nucleated Red Blood Cell % [facility] ([facility]) platelet count, automated 160 10 150-450 Platelet C ount, Automated CE ([facility]) ID Date Data Source [id number] 09/13/2020 04:51:00 AM EST [facility] ([facility]) Name Value Range Interpretation Code Description Data Natali rce(s) Supporting Document(s) nt-pro BNP 8921 pg/mL <125 Above high normal Nt-pro BNP [facility] ([facility]) ID Date Data Source [id number] 09/13/2020 04:51:00 AM EST [facility] ([facility]) Name Value Range Interpretation Code Description Data Natali rce(s) Supporting Document(s) magnesium level 1.9 mg/dL 1.8-2.4 Magnesium Level [facility] ([facility]) ID Date Data Source [id number] 09/13/2020 04:51:00 AM EST [facility] ([facility]) Name Value Range Interpretation Code Description Data Natali rce(s) Supporting Document(s) glucose, fasting 108 mg/dL 70-100 Above high normal Glucose, Fas ting CE ([facility]) blood urea nitrogen 16 mg/dL 7-18 Blood Urea Nitro gen CE ([facility]) creatinine for GFR 0.65 mg/dL 0.70-1.30 Below low normal Creatinine for GFR [facility] ([facility]) glomerular filtration rate > 60.0 >56 Glomerula r Filtration Rate CE ([facility]) sodium level 132 mEq/L 136-145 Below low normal Sodium Level ATHE NA ([facility]) potassium serum 4.4 mEq/L 3.5-5.1 Potassium Serum ATHE NA ([facility]) carbon dioxide level 34 mEq/L 21-32 Above high normal Carbon D ioxide Level CE ([facility]) chloride level 96 mEq/L 98-107 Below low normal Chloride Level CE ([facility]) anion gap 2 mEq/L 8-16 Below low normal Anion Gap CE ( [facility]) calcium level 8.0 mg/dL 8.5-10.1 Below low normal Calcium Level AT [facility]) ID Date Data Source [id number] 09/13/2020 04:51:00 AM EST [facility] ([facility]) Name Value Range Interpretation Code Description Data Natali rce(s) Supporting Document(s) white blood count 6.8 10 4.0-10.0 White Blood Count [facility] ([facility]) red blood count 3.41 10 4.30-6.10 Below low normal Red Blood Coun t [facility] ([facility]) hemoglobin 12.3 g/dL 13.5-17.5 Below low normal Hemoglobin CE ( [facility]) hematocrit 36.7 % 42.0-52.0 Below low normal Hematocrit CE ( [facility]) mean corpuscular volume 107.6 fL 80.0-96.0 Above high normal Mean Corpuscular Volume [facility] ([facility] [facility]) mean corpuscular hemoglobin 36.1 pg 27.0-33.0 Above high no rmal Mean Corpuscular Hemoglobin CE ([facility]) mean corpuscular HGB conc 33.5 g/dL 32.0-36.5 Mean Corpu scular HGB Conc CE ([facility]) red cell distribution width 15.0 % 11.5-14.5 Above high no rmal Red Cell Distribution Width DRIFT ([facility]) platelet count, automated 178 10 150-450 Platelet C ount, Automated CE ([facility]) nucleated red blood cell % 0.3 % 0-0 Above high nor mal Nucleated Red Blood Cell % CE ([facility]) ID Date Data Source [id number] 09/13/2020 04:51:00 AM EST CE ([facility]) Name Value Range Interpretation Code Description Data Natali rce(s) Supporting Document(s) nt-pro BNP 8921 pg/mL <125 Above high normal Nt-pro BNP DR[facility] ([facility]) ID Date Data Source [id number] 09/13/2020 04:51:00 AM EST CE ([facility]) Name Value Range Interpretation Code Description Data Natali rce(s) Supporting Document(s) magnesium level 1.9 mg/dL 1.8-2.4 [facility] ID Date Data Source [id number] 09/13/2020 04:51:00 AM EST [facility] ([facility]) Name Value Range Interpretation Code Description Data Natali rce(s) Supporting Document(s) glucose, fasting 108 mg/dL 70-100 Above high normal Glucose, Fas ting CE ([facility]) blood urea nitrogen 16 mg/dL 7-18 Blood Urea Nitro gen CE ([facility]) creatinine for GFR 0.65 mg/dL 0.70-1.30 Below low normal Creatinine for GFR DR[facility] ([facility]) glomerular filtration rate > 60.0 >56 Glomerula r Filtration Rate DRIFT ([facility]) sodium level 132 mEq/L 136-145 Below low normal Sodium Level ATHE NA ([facility]) potassium serum 4.4 mEq/L 3.5-5.1 Potassium Serum ATHE NA ([facility]) chloride level 96 mEq/L 98-107 Below low normal Chloride Level [facility] ([facility]) carbon dioxide level 34 mEq/L 21-32 Above high normal Carbon D ioxide Level DR[facility] ([facility]) calcium level 8.0 mg/dL 8.5-10.1 Below low normal Calcium Level AT [facility]) anion gap 2 mEq/L 8-16 Below low normal Anion Gap DR[facility] ( [facility]) ID Date Data Source [id number] 09/13/2020 04:51:00 AM EST [facility] ([facility]) Name Value Range Interpretation Code Description Data Natali rce(s) Supporting Document(s) white blood count 6.8 10 4.0-10.0 White Blood Count [facility] ([facility]) red blood count 3.41 10 4.30-6.10 Below low normal Red Blood Coun t DR[facility] ([facility]) hemoglobin 12.3 g/dL 13.5-17.5 Below low normal Hemoglobin DR[facility] ( [facility]) hematocrit 36.7 % 42.0-52.0 Below low normal Hematocrit DR[facility] ( [facility]) mean corpuscular volume 107.6 fL 80.0-96.0 Above high normal Mean Corpuscular Volume DR[facility] ([facility]) mean corpuscular hemoglobin 36.1 pg 27.0-33.0 Above high no rmal Mean Corpuscular Hemoglobin DR[facility] ([facility]) mean corpuscular HGB conc 33.5 g/dL 32.0-36.5 Mean Corpu scular HGB Conc DR[facility] ([facility]) red cell distribution width 15.0 % 11.5-14.5 Above high no rmal Red Cell Distribution Width DR[facility] ([facility]) nucleated red blood cell % 0.3 % 0-0 Above high nor mal Nucleated Red Blood Cell % DR[facility] ([facility]) platelet count, automated 178 10 150-450 Platelet C ount, Automated [facility]) ID Date Data Source [id number] 09/13/2020 04:51:00 AM EST [facility] ([facility]) Name Value Range Interpretation Code Description Data Natali rce(s) Supporting Document(s) nt-pro BNP 8921 pg/mL <125 Above high normal Nt-pro BNP CE ([facility]) ID Date Data Source [id number] 09/13/2020 04:51:00 AM EST CE ([facility]) Name Value Range Interpretation Code Description Data Natali rce(s) Supporting Document(s) magnesium level 1.9 mg/dL 1.8-2.4 Magnesium Level ATHE NA ([facility]) ID Date Data Source [id number] 09/13/2020 04:51:00 AM EST CE ([facility]) Name Value Range Interpretation Code Description Data Natali rce(s) Supporting Document(s) glucose, fasting 108 mg/dL 70-100 Above high normal Glucose, Fas ting CE ([facility]) blood urea nitrogen 16 mg/dL 7-18 Blood Urea Nitro gen CE ([facility]) creatinine for GFR 0.65 mg/dL 0.70-1.30 Below low normal Creatinine for GFR CE ([facility]) glomerular filtration rate > 60.0 >56 Glomerula r Filtration Rate CE ([facility]) potassium serum 4.4 mEq/L 3.5-5.1 Potassium Serum ATHE NA ([facility]) sodium level 132 mEq/L 136-145 Below low normal Sodium Level ATHE ([facility]) chloride level 96 mEq/L 98-107 Below low normal Chloride Level CE ([facility]) carbon dioxide level 34 mEq/L 21-32 Above high normal Carbon D ioxide Level CE ([facility]) calcium level 8.0 mg/dL 8.5-10.1 Below low normal Calcium Level AT [facility] ([facility]) anion gap 2 mEq/L 8-16 Below low normal Anion Gap CE ( [facility]) ID Date Data Source [id number] 09/13/2020 04:51:00 AM EST CE ([facility]) Name Value Range Interpretation Code Description Data Natali rce(s) Supporting Document(s) white blood count 6.8 10 4.0-10.0 White Blood Count CE ([facility]) red blood count 3.41 10 4.30-6.10 Below low normal Red Blood Coun t CE ([facility]) hemoglobin 12.3 g/dL 13.5-17.5 Below low normal Hemoglobin CE ( [facility]) hematocrit 36.7 % 42.0-52.0 Below low normal Hematocrit CE ( [facility]) mean corpuscular volume 107.6 fL 80.0-96.0 Above high normal Mean Corpuscular Volume DR[facility] ([facility]) mean corpuscular hemoglobin 36.1 pg 27.0-33.0 Above high no rmal Mean Corpuscular Hemoglobin DR[facility] ([facility]) mean corpuscular HGB conc 33.5 g/dL 32.0-36.5 Mean Corpu scular HGB Conc DR[facility] ([facility]) red cell distribution width 15.0 % 11.5-14.5 Above high no rmal Red Cell Distribution Width CE ([facility]) platelet count, automated 178 10 150-450 Platelet C ount, Automated CE ([facility]) nucleated red blood cell % 0.3 % 0-0 Above high nor mal Nucleated Red Blood Cell % DR[facility] ([facility]) ID Date Data Source [id number] 09/12/2020 05:06:00 AM EST [facility] ([facility]) Name Value Range Interpretation Code Description Data Natali rce(s) Supporting Document(s) magnesium level 1.7 mg/dL 1.8-2.4 Below low normal Magnesium Justicee l DR[facility] ([facility]) ID Date Data Source [id number] 09/12/2020 05:06:00 AM EST CE ([facility]) Name Value Range Interpretation Code Description Data Natali rce(s) Supporting Document(s) glucose, fasting 111 mg/dL 70-100 Above high normal Glucose, Fas ting CE ([facility]) creatinine for GFR 0.56 mg/dL 0.70-1.30 Below low normal Creatinine for GFR CE ([facility]) blood urea nitrogen 19 mg/dL 7-18 Above high normal Blood Ure a Nitrogen CE ([facility]) glomerular filtration rate > 60.0 >56 Glomerula r Filtration Rate CE ([facility]) sodium level 130 mEq/L 136-145 Below low normal Sodium Level ATHE NA ([facility]) chloride level 89 mEq/L 98-107 Below low normal Chloride Level CE ([facility]) potassium serum 3.3 mEq/L 3.5-5.1 Below low normal Potassium Seru m DRIFT ([facility]) carbon dioxide level 36 mEq/L 21-32 Above high normal Carbon D ioxide Level DR[facility] ([facility]) anion gap 5 mEq/L 8-16 Below low normal Anion Gap DR[facility] ( [facility]) calcium level 8.0 mg/dL 8.5-10.1 Below low normal Calcium Level AT [facility] ([facility]) ID Date Data Source [id number] 09/12/2020 05:06:00 AM EST [facility] ([facility]) Name Value Range Interpretation Code Description Data Natali rce(s) Supporting Document(s) magnesium level 1.7 mg/dL 1.8-2.4 Below low normal Magnesium Leve l DR[facility] ([facility]) ID Date Data Source [id number] 09/12/2020 05:06:00 AM EST CE ([facility]) Name Value Range Interpretation Code Description Data Natali rce(s) Supporting Document(s) glucose, fasting 111 mg/dL 70-100 Above high normal Glucose, Fas ting DR[facility] ([facility]) blood urea nitrogen 19 mg/dL 7-18 Above high normal Blood Ure a Nitrogen CE ([facility]) creatinine for GFR 0.56 mg/dL 0.70-1.30 Below low normal Creatinine for GFR CE ([facility]) glomerular filtration rate > 60.0 >56 Glomerula r Filtration Rate CE ([facility]) sodium level 130 mEq/L 136-145 Below low normal Sodium Level ATHE NA ([facility]) chloride level 89 mEq/L 98-107 Below low normal Chloride Level CE ([facility]) potassium serum 3.3 mEq/L 3.5-5.1 Below low normal Potassium Seru m DRIFT ([facility]) anion gap 5 mEq/L 8-16 Below low normal Anion Gap CE ( [facility]) carbon dioxide level 36 mEq/L 21-32 Above high normal Carbon D ioxide Level DRIFT ([facility]) calcium level 8.0 mg/dL 8.5-10.1 Below low normal Calcium Level AT [facility]) ID Date Data Source [id number] 09/12/2020 05:06:00 AM EST DR[facility] ([facility]) Name Value Range Interpretation Code Description Data Natali rce(s) Supporting Document(s) magnesium level 1.7 mg/dL 1.8-2.4 Below low normal Magnesium Leve l DR[facility] ([facility]) ID Date Data Source [id number] 09/12/2020 05:06:00 AM EST [facility] ([facility]) Name Value Range Interpretation Code Description Data Natali rce(s) Supporting Document(s) glucose, fasting 111 mg/dL 70-100 Above high normal Glucose, Fas ting CE ([facility]) blood urea nitrogen 19 mg/dL 7-18 Above high normal Blood Ure a Nitrogen CE ([facility]) creatinine for GFR 0.56 mg/dL 0.70-1.30 Below low normal Creatinine for GFR CE ([facility]) glomerular filtration rate > 60.0 >56 Glomerula r Filtration Rate CE ([facility]) sodium level 130 mEq/L 136-145 Below low normal Sodium Level ATHE NA ([facility]) potassium serum 3.3 mEq/L 3.5-5.1 Below low normal Potassium Seru m CE ([facility]) chloride level 89 mEq/L 98-107 Below low normal Chloride Level CE ([facility]) carbon dioxide level 36 mEq/L 21-32 Above high normal Carbon D ioxide Level CE ([facility]) anion gap 5 mEq/L 8-16 Below low normal Anion Gap CE ( [facility]) calcium level 8.0 mg/dL 8.5-10.1 Below low normal Calcium Level AT [facility] ([facility]) ID Date Data Source [id number] 09/11/2020 10:44:00 AM EST [facility] ([facility]) Name Value Range Interpretation Code Description Data Natali rce(s) Supporting Document(s) glucose, fasting 119 mg/dL 70-100 Above high normal Glucose, Fas ting DR[facility] ([facility]) blood urea nitrogen 15 mg/dL 7-18 Blood Urea Nitro gen [facility] ([facility]) creatinine for GFR 0.76 mg/dL 0.70-1.30 Creatinine for GF R DR[facility] ([facility]) glomerular filtration rate > 60.0 >56 Glomerula r Filtration Rate DR[facility] ([facility]) sodium level 132 mEq/L 136-145 Below low normal Sodium Level ATH NA ([facility]) potassium serum 3.7 mEq/L 3.5-5.1 Potassium Serum ATHE NA ([facility]) chloride level 89 mEq/L 98-107 Below low normal Chloride Level CE ([facility]) carbon dioxide level 38 mEq/L 21-32 Above high normal Carbon D ioxide Level DR[facility] ([facility]) anion gap 5 mEq/L 8-16 Below low normal Anion Gap DR[facility] ( [facility]) calcium level 7.8 mg/dL 8.5-10.1 Below low normal Calcium Level AT [facility] ([facility]) ID Date Data Source [id number] 09/11/2020 10:44:00 AM EST [facility] ([facility]) Name Value Range Interpretation Code Description Data Natali rce(s) Supporting Document(s) white blood count 8.8 10 4.0-10.0 White Blood Count DR[facility] ([facility]) red blood count 3.96 10 4.30-6.10 Below low normal Red Blood Coun t DR[facility] ([facility]) hemoglobin 14.2 g/dL 13.5-17.5 Hemoglobin DR[facility] ([facility]) mean corpuscular volume 107.8 fL 80.0-96.0 Above high normal Mean Corpuscular Volume DR[facility] ([facility]) hematocrit 42.7 % 42.0-52.0 Hematocrit DR[facility] ([facility]) mean corpuscular hemoglobin 35.9 pg 27.0-33.0 Above high no rmal Mean Corpuscular Hemoglobin DR[facility] ([facility]) mean corpuscular HGB conc 33.3 g/dL 32.0-36.5 Mean Corpu scular HGB Conc DR[facility] ([facility]) red cell distribution width 15.0 % 11.5-14.5 Above high no rmal Red Cell Distribution Width DR[facility] ([facility]) platelet count, automated 192 10 150-450 Platelet C ount, Automated [facility] ([facility]) nucleated red blood cell % 0.0 % 0-0 Nucleated Red Blood Cell % [facility] ([facility]) ID Date Data Source [id number] 09/11/2020 10:44:00 AM EST [facility] ([facility]) Name Value Range Interpretation Code Description Data Natali rce(s) Supporting Document(s) glucose, fasting 119 mg/dL 70-100 Above high normal Glucose, Fas ting DR[facility] ([facility]) creatinine for GFR 0.76 mg/dL 0.70-1.30 Creatinine for GF R DR[facility] ([facility]) blood urea nitrogen 15 mg/dL 7-18 Blood Urea Nitro gen CE ([facility]) glomerular filtration rate > 60.0 >56 Glomerula r Filtration Rate DR[facility] ([facility]) chloride level 89 mEq/L 98-107 Below low normal Chloride Level DR[facility] ([facility]) sodium level 132 mEq/L 136-145 Below low normal Sodium Level ATHE NA ([facility]) potassium serum 3.7 mEq/L 3.5-5.1 Potassium Serum ATHE NA ([facility]) carbon dioxide level 38 mEq/L 21-32 Above high normal Carbon D ioxide Level CE ([facility]) anion gap 5 mEq/L 8-16 Below low normal Anion Gap CE ( [facility]) calcium level 7.8 mg/dL 8.5-10.1 Below low normal Calcium Level AT [facility] ([facility]) ID Date Data Source [id number] 09/11/2020 10:44:00 AM EST [facility] ([facility]) Name Value Range Interpretation Code Description Data Natali rce(s) Supporting Document(s) red blood count 3.96 10 4.30-6.10 Below low normal Red Blood Coun t DR[facility] ([facility]) white blood count 8.8 10 4.0-10.0 White Blood Count CE ([facility]) hematocrit 42.7 % 42.0-52.0 Hematocrit CE ([facility]) hemoglobin 14.2 g/dL 13.5-17.5 Hemoglobin CE ([facility]) mean corpuscular hemoglobin 35.9 pg 27.0-33.0 Above high no rmal Mean Corpuscular Hemoglobin CE ([facility]) mean corpuscular volume 107.8 fL 80.0-96.0 Above high normal Mean Corpuscular Volume CE ([facility]) mean corpuscular HGB conc 33.3 g/dL 32.0-36.5 Mean Corpu scular HGB Conc CE ([facility]) red cell distribution width 15.0 % 11.5-14.5 Above high no rmal Red Cell Distribution Width CE ([facility]) nucleated red blood cell % 0.0 % 0-0 Nucleated Red Blood Cell % CE ([facility]) platelet count, automated 192 10 150-450 Platelet C ount, Automated CE ([facility]) ID Date Data Source [id number] 09/11/2020 10:44:00 AM EST [facility] ([facility]) Name Value Range Interpretation Code Description Data Natali rce(s) Supporting Document(s) glucose, fasting 119 mg/dL 70-100 Above high normal Glucose, Fas ting CE ([facility]) blood urea nitrogen 15 mg/dL 7-18 Blood Urea Nitro gen [facility] ([facility]) creatinine for GFR 0.76 mg/dL 0.70-1.30 Creatinine for GF R [facility] ([facility]) glomerular filtration rate > 60.0 >56 Glomerula r Filtration Rate DR[facility] ([facility]) sodium level 132 mEq/L 136-145 Below low normal Sodium Level ATH NA ([facility]) potassium serum 3.7 mEq/L 3.5-5.1 Potassium Serum ATH NA ([facility]) chloride level 89 mEq/L 98-107 Below low normal Chloride Level [facility] ([facility]) carbon dioxide level 38 mEq/L 21-32 Above high normal Carbon D ioxide Level [facility] ([facility]) anion gap 5 mEq/L 8-16 Below low normal Anion Gap [facility] ( [facility]) calcium level 7.8 mg/dL 8.5-10.1 Below low normal Calcium Level AT [facility] ([facility]) ID Date Data Source [id number] 09/11/2020 10:44:00 AM EST [facility] ([facility]) Name Value Range Interpretation Code Description Data Natali rce(s) Supporting Document(s) white blood count 8.8 10 4.0-10.0 White Blood Count [facility] ([facility]) red blood count 3.96 10 4.30-6.10 Below low normal Red Blood Coun t DR[facility] ([facility]) hemoglobin 14.2 g/dL 13.5-17.5 Hemoglobin DR[facility] ([facility]) hematocrit 42.7 % 42.0-52.0 Hematocrit DR[facility] ([facility]) mean corpuscular volume 107.8 fL 80.0-96.0 Above high normal Mean Corpuscular Volume [facility] ([facility]) mean corpuscular HGB conc 33.3 g/dL 32.0-36.5 Mean Corpu scular HGB Conc CE ([facility]) mean corpuscular hemoglobin 35.9 pg 27.0-33.0 Above high no rmal Mean Corpuscular Hemoglobin CE ([facility]) red cell distribution width 15.0 % 11.5-14.5 Above high no rmal Red Cell Distribution Width CE ([facility]) platelet count, automated 192 10 150-450 Platelet C ount, Automated CE ([facility]) nucleated red blood cell % 0.0 % 0-0 Nucleated Red Blood Cell % DR[facility] ([facility]) ID Date Data Source [id number] 09/11/2020 04:55:00 AM JENNIFER ENCINAS ([facility]) Name Value Range Interpretation Code Description Data Natali rce(s) Supporting Document(s) magnesium level 1.3 mg/dL 1.8-2.4 Below low normal Magnesium Se [facility] ([facility]) ID Date Data Source [id number] 09/11/2020 04:55:00 AM JENNIFER ENCINAS ([facility]) Name Value Range Interpretation Code Description Data Natali rce(s) Supporting Document(s) magnesium level 1.3 mg/dL 1.8-2.4 Below low normal Magnesium Se [facility]AS ([facility]) ID Date Data Source [id number] 09/11/2020 04:55:00 AM EST CE ([facility]) Name Value Range Interpretation Code Description Data Natali rce(s) Supporting Document(s) magnesium level 1.3 mg/dL 1.8-2.4 Below low normal Magnesium Se l CE ([facility]) ID Date Data Source [id number] 09/10/2020 05:04:00 AM JENNIFER ENCINAS ([facility]) Name Value Range Interpretation Code Description Data Natali rce(s) Supporting Document(s) glucose, fasting 100 mg/dL 70-100 Glucose, Fasting AT [facility] ([facility]) blood urea nitrogen 19 mg/dL 7-18 Above high normal Blood Ure a Nitrogen [facility] ([facility]) creatinine for GFR 0.80 mg/dL 0.70-1.30 Creatinine for GF R [facility] ([facility]) glomerular filtration rate > 60.0 >56 Glomerula r Filtration Rate DR[facility] ([facility]) sodium level 134 mEq/L 136-145 Below low normal Sodium Level ATH NA ([facility]) potassium serum 3.7 mEq/L 3.5-5.1 Potassium Serum ATH NA ([facility]) chloride level 93 mEq/L 98-107 Below low normal Chloride Level [facility] ([facility]) carbon dioxide level 36 mEq/L 21-32 Above high normal Carbon D ioxide Level [facility]) anion gap 5 mEq/L 8-16 Below low normal Anion Gap DR[facility] ( [facility]) calcium level 7.7 mg/dL 8.5-10.1 Below low normal Calcium Level AT [facility]) ID Date Data Source [id number] 09/10/2020 05:04:00 AM EST [facility] ([facility]) Name Value Range Interpretation Code Description Data Natali rce(s) Supporting Document(s) white blood count 5.9 10 4.0-10.0 White Blood Count [facility] ([facility]) red blood count 3.53 10 4.30-6.10 Below low normal Red Blood Coun t [facility] ([facility]) hemoglobin 13.1 g/dL 13.5-17.5 Below low normal Hemoglobin DR[facility] ( [facility]) mean corpuscular volume 109.3 fL 80.0-96.0 Above high normal Mean Corpuscular Volume DR[facility] ([facility]) hematocrit 38.6 % 42.0-52.0 Below low normal Hematocrit DR[facility] ( [facility]) mean corpuscular hemoglobin 37.1 pg 27.0-33.0 Above high no rmal Mean Corpuscular Hemoglobin CE ([facility]) mean corpuscular HGB conc 33.9 g/dL 32.0-36.5 Mean Corpu scular HGB Conc CE ([facility]) red cell distribution width 14.7 % 11.5-14.5 Above high no rmal Red Cell Distribution Width CE ([facility]) platelet count, automated 154 10 150-450 Platelet C ount, Automated CE ([facility]) nucleated red blood cell % 0.0 % 0-0 Nucleated Red Blood Cell % [facility] ([facility]) ID Date Data Source [id number] 09/10/2020 05:04:00 AM EST [facility]) Name Value Range Interpretation Code Description Data Natali rce(s) Supporting Document(s) glucose, fasting 100 mg/dL 70-100 Glucose, Fasting AT [facility]) blood urea nitrogen 19 mg/dL 7-18 Above high normal Blood Ure a Nitrogen CE ([facility]) glomerular filtration rate > 60.0 >56 Glomerula r Filtration Rate CE ([facility]) creatinine for GFR 0.80 mg/dL 0.70-1.30 Creatinine for GF R [facility] ([facility]) sodium level 134 mEq/L 136-145 Below low normal Sodium Level ATHE NA ([facility]) potassium serum 3.7 mEq/L 3.5-5.1 Potassium Serum ATHE NA ([facility]) chloride level 93 mEq/L 98-107 Below low normal Chloride Level CE ([facility]) anion gap 5 mEq/L 8-16 Below low normal Anion Gap DRIFT ( [facility]) carbon dioxide level 36 mEq/L 21-32 Above high normal Carbon D ioxide Level DRIFT ([facility]) calcium level 7.7 mg/dL 8.5-10.1 Below low normal Calcium Level AT [facility]) ID Date Data Source [id number] 09/10/2020 05:04:00 AM EST CE ([facility]) Name Value Range Interpretation Code Description Data Natali rce(s) Supporting Document(s) white blood count 5.9 10 4.0-10.0 White Blood Count CE ([facility]) hemoglobin 13.1 g/dL 13.5-17.5 Below low normal Hemoglobin CE ( [facility]) red blood count 3.53 10 4.30-6.10 Below low normal Red Blood Coun t DRIFT ([facility]) mean corpuscular volume 109.3 fL 80.0-96.0 Above high normal Mean Corpuscular Volume DRIFT ([facility]) hematocrit 38.6 % 42.0-52.0 Below low normal Hematocrit DRIFT ( [facility]) mean corpuscular HGB conc 33.9 g/dL 32.0-36.5 Mean Corpu scular HGB Conc DRIFT ([facility]) mean corpuscular hemoglobin 37.1 pg 27.0-33.0 Above high no rmal Mean Corpuscular Hemoglobin DRIFT ([facility]) red cell distribution width 14.7 % 11.5-14.5 Above high no rmal Red Cell Distribution Width DRIFT ([facility]) platelet count, automated 154 10 150-450 Platelet C ount, Automated CE ([facility]) nucleated red blood cell % 0.0 % 0-0 Nucleated Red Blood Cell % DRIFT ([facility]) ID Date Data Source [id number] 09/10/2020 05:04:00 AM EST DRIFT ([facility]) Name Value Range Interpretation Code Description Data Natali rce(s) Supporting Document(s) glucose, fasting 100 mg/dL 70-100 Glucose, Fasting AT [facility] ([facility]) blood urea nitrogen 19 mg/dL 7-18 Above high normal Blood Ure a Nitrogen CE ([facility]) creatinine for GFR 0.80 mg/dL 0.70-1.30 Creatinine for GF R CE ([facility]) glomerular filtration rate > 60.0 >56 Glomerula r Filtration Rate CE ([facility]) sodium level 134 mEq/L 136-145 Below low normal Sodium Level ATHE NA ([facility]) potassium serum 3.7 mEq/L 3.5-5.1 Potassium Serum ATHE NA ([facility]) chloride level 93 mEq/L 98-107 Below low normal Chloride Level DRIFT ([facility]) carbon dioxide level 36 mEq/L 21-32 Above high normal Carbon D ioxide Level CE ([facility]) calcium level 7.7 mg/dL 8.5-10.1 Below low normal Calcium Level AT [facility] ([facility]) anion gap 5 mEq/L 8-16 Below low normal Anion Gap DRIFT ( [facility]) ID Date Data Source [id number] 09/10/2020 05:04:00 AM EST DRIFT ([facility]) Name Value Range Interpretation Code Description Data Natali rce(s) Supporting Document(s) red blood count 3.53 10 4.30-6.10 Below low normal Red Blood Coun t DRIFT ([facility]) white blood count 5.9 10 4.0-10.0 White Blood Count DRIFT ([facility]) hemoglobin 13.1 g/dL 13.5-17.5 Below low normal Hemoglobin DRIFT ( [facility]) mean corpuscular volume 109.3 fL 80.0-96.0 Above high normal Mean Corpuscular Volume CE ([facility]) hematocrit 38.6 % 42.0-52.0 Below low normal Hematocrit DRIFT ( [facility]) mean corpuscular HGB conc 33.9 g/dL 32.0-36.5 Mean Corpu scular HGB Conc DRIFT ([facility]) mean corpuscular hemoglobin 37.1 pg 27.0-33.0 Above high no rmal Mean Corpuscular Hemoglobin CE ([facility]) platelet count, automated 154 10 150-450 Platelet C ount, Automated CE ([facility]) red cell distribution width 14.7 % 11.5-14.5 Above high no rmal Red Cell Distribution Width DRIFT ([facility]) nucleated red blood cell % 0.0 % 0-0 Nucleated Red Blood Cell % CE ([facility]) ID Date Data Source [id number] 09/09/2020 04:46:00 AM EST CE ([facility]) Name Value Range Interpretation Code Description Data Natali rce(s) Supporting Document(s) magnesium level 1.8 mg/dL 1.8-2.4 Magnesium Level ATHE NA ([facility]) ID Date Data Source [id number] 09/09/2020 04:46:00 AM EST CE ([facility]) Name Value Range Interpretation Code Description Data Natali rce(s) Supporting Document(s) T uptake 35 % 33-40 T Uptake CE ([facility]) thyroxine (T4) 5.8 ug/dL 4.5-12.0 Thyroxine (T4) CE ([facility]) free thyroxine index 2.0 % 1.4-3.8 Free Thyroxine Index DRIFT ([facility]) thyroid stimulating hormone 8.350 uIU/mL 0.358-3.740 Above high no rmal Thyroid Stimulating Hormone CE ([facility]) ID Date Data Source [id number] 09/09/2020 04:46:00 AM EST CE ([facility]) Name Value Range Interpretation Code Description Data Natali rce(s) Supporting Document(s) blood urea nitrogen 25 mg/dL 7-18 Above high normal Blood Ure a Nitrogen CE ([facility]) glucose, fasting 89 mg/dL 70-100 Glucose, Fasting AT [facility] ([facility]) glomerular filtration rate > 60.0 >56 Glomerula r Filtration Rate CE ([facility]) creatinine for GFR 1.04 mg/dL 0.70-1.30 Creatinine for GF R CE ([facility]) sodium level 133 mEq/L 136-145 Below low normal Sodium Level ATHE NA ([facility]) potassium serum 3.2 mEq/L 3.5-5.1 Below low normal Potassium Seru m CE ([facility]) chloride level 93 mEq/L 98-107 Below low normal Chloride Level DRIFT ([facility]) carbon dioxide level 32 mEq/L 21-32 Carbon Dioxide Level DRIFT ([facility]) anion gap 8 mEq/L 8-16 Anion Gap DRIFT ([facility]) calcium level 7.4 mg/dL 8.5-10.1 Below low normal Calcium Level AT [facility]) ID Date Data Source [id number] 09/09/2020 04:46:00 AM EST [facility]) Name Value Range Interpretation Code Description Data Natali rce(s) Supporting Document(s) white blood count 5.5 10 4.0-10.0 White Blood Count DRIFT ([facility]) red blood count 3.14 10 4.30-6.10 Below low normal Red Blood Coun t DRIFT ([facility]) hemoglobin 11.3 g/dL 13.5-17.5 Below low normal Hemoglobin DRIFT ( [facility]) hematocrit 33.8 % 42.0-52.0 Below low normal Hematocrit DRIFT ( [facility]) mean corpuscular volume 107.6 fL 80.0-96.0 Above high normal Mean Corpuscular Volume DRIFT ([facility]) mean corpuscular HGB conc 33.4 g/dL 32.0-36.5 Mean Corpu scular HGB Conc DRIFT ([facility]) mean corpuscular hemoglobin 36.0 pg 27.0-33.0 Above high no rmal Mean Corpuscular Hemoglobin DRIFT ([facility]) red cell distribution width 14.6 % 11.5-14.5 Above high no rmal Red Cell Distribution Width DRIFT ([facility]) platelet count, automated 128 10 150-450 Below low jania l Platelet Count, Automated [facility]) nucleated red blood cell % 0.0 % 0-0 Nucleated Red Blood Cell % DRIFT ([facility]) ID Date Data Source [id number] 09/09/2020 04:46:00 AM EST CE ([facility]) Name Value Range Interpretation Code Description Data Natali rce(s) Supporting Document(s) magnesium level 1.8 mg/dL 1.8-2.4 Magnesium Level ATHE NA ([facility]) ID Date Data Source [id number] 09/09/2020 04:46:00 AM EST CE ([facility]) Name Value Range Interpretation Code Description Data Natali rce(s) Supporting Document(s) T uptake 35 % 33-40 T Uptake CE ([facility]) thyroxine (T4) 5.8 ug/dL 4.5-12.0 Thyroxine (T4) DRIFT ([facility]) free thyroxine index 2.0 % 1.4-3.8 Free Thyroxine Index DRIFT ([facility]) thyroid stimulating hormone 8.350 uIU/mL 0.358-3.740 Above high no rmal Thyroid Stimulating Hormone CE ([facility]) ID Date Data Source [id number] 09/09/2020 04:46:00 AM EST CE ([facility]) Name Value Range Interpretation Code Description Data Natali rce(s) Supporting Document(s) glucose, fasting 89 mg/dL 70-100 Glucose, Fasting AT [facility]) blood urea nitrogen 25 mg/dL 7-18 Above high normal Blood Ure a Nitrogen CE ([facility]) creatinine for GFR 1.04 mg/dL 0.70-1.30 Creatinine for GF R CE ([facility]) sodium level 133 mEq/L 136-145 Below low normal Sodium Level ATHE NA ([facility]) glomerular filtration rate > 60.0 >56 Glomerula r Filtration Rate CE ([facility]) chloride level 93 mEq/L 98-107 Below low normal Chloride Level CE ([facility]) potassium serum 3.2 mEq/L 3.5-5.1 Below low normal Potassium Seru m DRIFT ([facility]) anion gap 8 mEq/L 8-16 Anion Gap CE ([facility]) carbon dioxide level 32 mEq/L 21-32 Carbon Dioxide Level DRIFT ([facility]) calcium level 7.4 mg/dL 8.5-10.1 Below low normal Calcium Level AT [facility]) ID Date Data Source [id number] 09/09/2020 04:46:00 AM EST DRIFT ([facility]) Name Value Range Interpretation Code Description Data Natali rce(s) Supporting Document(s) white blood count 5.5 10 4.0-10.0 White Blood Count DRIFT ([facility]) red blood count 3.14 10 4.30-6.10 Below low normal Red Blood Coun t DRIFT ([facility]) hemoglobin 11.3 g/dL 13.5-17.5 Below low normal Hemoglobin DRIFT ( [facility]) hematocrit 33.8 % 42.0-52.0 Below low normal Hematocrit DRIFT ( [facility]) mean corpuscular HGB conc 33.4 g/dL 32.0-36.5 Mean Corpu scular HGB Conc [facility]) mean corpuscular volume 107.6 fL 80.0-96.0 Above high normal Mean Corpuscular Volume DRIFT ([facility]) mean corpuscular hemoglobin 36.0 pg 27.0-33.0 Above high no rmal Mean Corpuscular Hemoglobin DRIFT ([facility]) platelet count, automated 128 10 150-450 Below low jania l Platelet Count, Automated CE ([facility]) red cell distribution width 14.6 % 11.5-14.5 Above high no rmal Red Cell Distribution Width DRIFT ([facility]) nucleated red blood cell % 0.0 % 0-0 Nucleated Red Blood Cell % DRIFT ([facility]) ID Date Data Source [id number] 09/09/2020 04:46:00 AM EST DRIFT ([facility]) Name Value Range Interpretation Code Description Data Natali rce(s) Supporting Document(s) magnesium level 1.8 mg/dL 1.8-2.4 [facility] ID Date Data Source [id number] 09/09/2020 04:46:00 AM EST DRIFT ([facility]) Name Value Range Interpretation Code Description Data Natali rce(s) Supporting Document(s) T uptake 35 % 33-40 T Uptake CE ([facility]) thyroxine (T4) 5.8 ug/dL 4.5-12.0 Thyroxine (T4) CE ([facility]) free thyroxine index 2.0 % 1.4-3.8 Free Thyroxine Index DRIFT ([facility]) thyroid stimulating hormone 8.350 uIU/mL 0.358-3.740 Above high no rmal Thyroid Stimulating Hormone DRIFT ([facility]) ID Date Data Source [id number] 09/09/2020 04:46:00 AM EST DRIFT ([facility]) Name Value Range Interpretation Code Description Data Natali rce(s) Supporting Document(s) glucose, fasting 89 mg/dL 70-100 Glucose, Fasting AT [facility]) blood urea nitrogen 25 mg/dL 7-18 Above high normal Blood Ure a Nitrogen DRIFT ([facility]) creatinine for GFR 1.04 mg/dL 0.70-1.30 Creatinine for GF R DRIFT ([facility]) glomerular filtration rate > 60.0 >56 Glomerula r Filtration Rate CE ([facility]) potassium serum 3.2 mEq/L 3.5-5.1 Below low normal Potassium Seru m CE ([facility]) sodium level 133 mEq/L 136-145 Below low normal Sodium Level ATHE ([facility]) carbon dioxide level 32 mEq/L 21-32 Carbon Dioxide Level DRIFT ([facility]) chloride level 93 mEq/L 98-107 Below low normal Chloride Level DRIFT ([facility]) anion gap 8 mEq/L 8-16 Anion Gap DRIFT ([facility]) calcium level 7.4 mg/dL 8.5-10.1 Below low normal Calcium Level AT [facility]) ID Date Data Source [id number] 09/09/2020 04:46:00 AM JENNIFER ENCINAS ([facility]) Name Value Range Interpretation Code Description Data Natali rce(s) Supporting Document(s) white blood count 5.5 10 4.0-10.0 White Blood Count DRIFT ([facility]) red blood count 3.14 10 4.30-6.10 Below low normal Red Blood Coun t DRIFT ([facility]) hematocrit 33.8 % 42.0-52.0 Below low normal Hematocrit DRIFT ( [facility]) hemoglobin 11.3 g/dL 13.5-17.5 Below low normal Hemoglobin DRIFT ( [facility]) mean corpuscular hemoglobin 36.0 pg 27.0-33.0 Above high no rmal Mean Corpuscular Hemoglobin DRIFT ([facility]) mean corpuscular volume 107.6 fL 80.0-96.0 Above high normal Mean Corpuscular Volume DRIFT ([facility]) red cell distribution width 14.6 % 11.5-14.5 Above high no rmal Red Cell Distribution Width DRIFT ([facility]) mean corpuscular HGB conc 33.4 g/dL 32.0-36.5 Mean Corpu scular HGB Conc DRIFT ([facility]) nucleated red blood cell % 0.0 % 0-0 Nucleated Red Blood Cell % DRIFT ([facility]) platelet count, automated 128 10 150-450 Below low jania l Platelet Count, Automated [facility]) ID Date Data Source [id number] 09/08/2020 06:17:00 PM EST DRIFT ([facility]) Name Value Range Interpretation Code Description Data Natali rce(s) Supporting Document(s) MRSA PCR screen not detected negative MRSA PCR Screen AT [facility]) ID Date Data Source [id number] 09/08/2020 06:17:00 PM EST CE ([facility]) Name Value Range Interpretation Code Description Data Natali rce(s) Supporting Document(s) MRSA PCR screen not detected negative MRSA PCR Screen AT [facility]) ID Date Data Source [id number] 09/08/2020 06:17:00 PM EST CE ([facility]) Name Value Range Interpretation Code Description Data Natali rce(s) Supporting Document(s) MRSA PCR screen not detected negative MRSA PCR Screen AT [facility] ([facility]) ID Date Data Source [id number] 09/08/2020 09:29:00 [facility] Name Value Range Interpretation Code Description Data Natali rce(s) Supporting Document(s) digoxin level 0.7 NG/mL 0.5-2.0 Digoxin Level [facility]) ID Date Data Source [id number] 09/08/2020 09:29:00 AM EST [facility]) Name Value Range Interpretation Code Description Data Natali rce(s) Supporting Document(s) glucose, fasting 137 mg/dL 70-100 Above high normal Glucose, Fas ting CE ([facility]) blood urea nitrogen 31 mg/dL 7-18 Above high normal Blood Ure a Nitrogen CE ([facility]) creatinine for GFR 1.38 mg/dL 0.70-1.30 Above high normal Creatinine for GFR DRIFT ([facility]) glomerular filtration rate >56 Glomerula r Filtration Rate CE ([facility]) sodium level 130 mEq/L 136-145 Below low normal Sodium Level ATHE NA ([facility]) potassium serum 4.6 mEq/L 3.5-5.1 Potassium Serum ATH NA ([facility]) carbon dioxide level 26 mEq/L 21-32 Carbon Dioxide Level CE ([facility]) chloride level 92 mEq/L 98-107 Below low normal Chloride Level DRIFT ([facility]) anion gap 12 mEq/L 8-16 Anion Gap CE ([facility]) calcium level 8.1 mg/dL 8.5-10.1 Below low normal Calcium Level AT [facility] ([facility]) ALT/SGPT 32 U/L 12-78 ALT/SGPT CE ([facility]) AST/SGOT 86 U/L 7-37 Above high normal AST/SGOT CE ([facility]) bilirubin,total 0.6 mg/dL 0.2-1.0 Bilirubin,total ATHE ([facility]) alkaline phosphatase 124 U/L 45-117 Above high normal Alkaline Phosphatase CE ([facility]) total protein 6.1 gm/dL 6.4-8.2 Below low normal Total Protein AT [facility] ([facility]) albumin/globulin ratio Albumin/globu aldo Ratio CE ([facility]) albumin 3.0 gm/dL 3.2-5.2 Below low normal Albumin DRIFT ( [facility]) ID Date Data Source [id number] 09/08/2020 09:29:00 AM EST DRIFT ([facility]) Name Value Range Interpretation Code Description Data Natali rce(s) Supporting Document(s) red blood count 3.49 10 4.30-6.10 Below low normal Red Blood Coun t CE ([facility]) white blood count 11.3 10 4.0-10.0 Above high normal White Blood Count CE ([facility]) hemoglobin 12.4 g/dL 13.5-17.5 Below low normal Hemoglobin CE ( [facility]) mean corpuscular volume 107.7 fL 80.0-96.0 Above high normal Mean Corpuscular Volume CE ([facility]) hematocrit 37.6 % 42.0-52.0 Below low normal Hematocrit CE ( [facility]) mean corpuscular hemoglobin 35.5 pg 27.0-33.0 Above high no rmal Mean Corpuscular Hemoglobin CE ([facility]) mean corpuscular HGB conc 33.0 g/dL 32.0-36.5 Mean Corpu scular HGB Conc CE ([facility]) platelet count, automated 139 10 150-450 Below low jania l Platelet Count, Automated CE ([facility]) red cell distribution width 14.5 % 11.5-14.5 Red Cell Distribution Width DRIFT ([facility]) nucleated red blood cell % 0.0 % 0-0 Nucleated Red Blood Cell % CE ([facility]) ID Date Data Source [id number] 09/08/2020 09:29:00 AM EST DRIFT ([facility]) Name Value Range Interpretation Code Description Data Natali rce(s) Supporting Document(s) digoxin level 0.7 NG/mL 0.5-2.0 Digoxin Level [facility]) ID Date Data Source [id number] 09/08/2020 09:29:00 AM EST DRIFT ([facility]) Name Value Range Interpretation Code Description Data Natali rce(s) Supporting Document(s) creatinine for GFR 1.38 mg/dL 0.70-1.30 Above high normal Creatinine for GFR DRIFT ([facility]) blood urea nitrogen 31 mg/dL 7-18 Above high normal Blood Ure a Nitrogen DRIFT ([facility]) glucose, fasting 137 mg/dL 70-100 Above high normal Glucose, Fas ting CE ([facility]) sodium level 130 mEq/L 136-145 Below low normal Sodium Level ATHE NA ([facility]) glomerular filtration rate >56 Glomerula r Filtration Rate CE ([facility]) chloride level 92 mEq/L 98-107 Below low normal Chloride Level CE ([facility]) potassium serum 4.6 mEq/L 3.5-5.1 Potassium Serum ATHE NA ([facility]) anion gap 12 mEq/L 8-16 Anion Gap DRIFT ([facility]) carbon dioxide level 26 mEq/L 21-32 Carbon Dioxide Level CE ([facility]) calcium level 8.1 mg/dL 8.5-10.1 Below low normal Calcium Level AT [facility]) ALT/SGPT 32 U/L 12-78 ALT/SGPT CE ([facility]) AST/SGOT 86 U/L 7-37 Above high normal AST/SGOT CE ([facility]) bilirubin,total 0.6 mg/dL 0.2-1.0 Bilirubin,total ATHE ([facility]) alkaline phosphatase 124 U/L 45-117 Above high normal Alkaline Phosphatase CE ([facility]) albumin 3.0 gm/dL 3.2-5.2 Below low normal Albumin CE ( [facility]) albumin/globulin ratio Albumin/globu aldo Ratio CE ([facility]) total protein 6.1 gm/dL 6.4-8.2 Below low normal Total Protein AT [facility] ([facility]) ID Date Data Source [id number] 09/08/2020 09:29:00 AM EST DRIFT ([facility]) Name Value Range Interpretation Code Description Data Natali rce(s) Supporting Document(s) white blood count 11.3 10 4.0-10.0 Above high normal White Blood Count CE ([facility]) red blood count 3.49 10 4.30-6.10 Below low normal Red Blood Coun t CE ([facility]) hemoglobin 12.4 g/dL 13.5-17.5 Below low normal Hemoglobin CE ( [facility]) mean corpuscular hemoglobin 35.5 pg 27.0-33.0 Above high no rmal Mean Corpuscular Hemoglobin CE ([facility]) hematocrit 37.6 % 42.0-52.0 Below low normal Hematocrit CE ( [facility]) mean corpuscular volume 107.7 fL 80.0-96.0 Above high normal Mean Corpuscular Volume CE ([facility]) mean corpuscular HGB conc 33.0 g/dL 32.0-36.5 Mean Corpu scular HGB Conc CE ([facility]) red cell distribution width 14.5 % 11.5-14.5 Red Cell Distribution Width CE ([facility]) platelet count, automated 139 10 150-450 Below low jania l Platelet Count, Automated CE ([facility]) nucleated red blood cell % 0.0 % 0-0 Nucleated Red Blood Cell % CE ([facility]) ID Date Data Source [id number] 09/08/2020 09:29:00 AM EST CE ([facility]) Name Value Range Interpretation Code Description Data Natali rce(s) Supporting Document(s) digoxin level 0.7 NG/mL 0.5-2.0 Digoxin Level DRIFT ( [facility]) ID Date Data Source [id number] 09/08/2020 09:29:00 AM EST CE ([facility]) Name Value Range Interpretation Code Description Data Natali rce(s) Supporting Document(s) glucose, fasting 137 mg/dL 70-100 Above high normal Glucose, Fas ting CE ([facility]) blood urea nitrogen 31 mg/dL 7-18 Above high normal Blood Ure a Nitrogen CE ([facility]) sodium level 130 mEq/L 136-145 Below low normal Sodium Level [facility] ([facility] [facility] creatinine for GFR 1.38 mg/dL 0.70-1.30 Above high normal Creatinine for GFR CE ([facility]) glomerular filtration rate >56 Glomerula r Filtration Rate CE ([facility]) potassium serum 4.6 mEq/L 3.5-5.1 Potassium Serum ATHE NA ([facility]) carbon dioxide level 26 mEq/L 21-32 Carbon Dioxide Level CE ([facility]) chloride level 92 mEq/L 98-107 Below low normal Chloride Level CE ([facility]) calcium level 8.1 mg/dL 8.5-10.1 Below low normal Calcium Level AT [facility]) anion gap 12 mEq/L 8-16 Anion Gap CE ([facility]) AST/SGOT 86 U/L 7-37 Above high normal AST/SGOT CE ([facility]) ALT/SGPT 32 U/L 12-78 ALT/SGPT CE ([facility]) bilirubin,total 0.6 mg/dL 0.2-1.0 Bilirubin,total ATHE NA ([facility]) alkaline phosphatase 124 U/L 45-117 Above high normal Alkaline Phosphatase CE ([facility]) total protein 6.1 gm/dL 6.4-8.2 Below low normal Total Protein AT [facility] ([facility]) albumin 3.0 gm/dL 3.2-5.2 Below low normal Albumin CE ( [facility]) albumin/globulin ratio Albumin/globu aldo Ratio CE ([facility]) ID Date Data Source [id number] 09/08/2020 09:29:00 AM EST DR[facility] ([facility]) Name Value Range Interpretation Code Description Data Natali rce(s) Supporting Document(s) white blood count 11.3 10 4.0-10.0 Above high normal White Blood Count CE ([facility]) red blood count 3.49 10 4.30-6.10 Below low normal Red Blood Coun t CE ([facility]) hematocrit 37.6 % 42.0-52.0 Below low normal Hematocrit CE ( [facility]) hemoglobin 12.4 g/dL 13.5-17.5 Below low normal Hemoglobin DRIFT ( [facility]) mean corpuscular volume 107.7 fL 80.0-96.0 Above high normal Mean Corpuscular Volume CE ([facility]) mean corpuscular hemoglobin 35.5 pg 27.0-33.0 Above high no rmal Mean Corpuscular Hemoglobin CE ([facility]) mean corpuscular HGB conc 33.0 g/dL 32.0-36.5 Mean Corpu scular HGB Conc CE ([facility]) red cell distribution width 14.5 % 11.5-14.5 Red Cell Distribution Width DR[facility] ([facility]) nucleated red blood cell % 0.0 % 0-0 Nucleated Red Blood Cell % CE ([facility]) platelet count, automated 139 10 150-450 Below low jania l Platelet Count, Automated CE ([facility]) ID Date Data Source [id number] 09/08/2020 07:54:00 AM EST CE ([facility]) Name Value Range Interpretation Code Description Data Natali rce(s) Supporting Document(s) bedside glucose 166 mg/dL 70-105 Above high normal Bedside Gluco se CE ([facility]) ID Date Data Source [id number] 09/08/2020 07:54:00 AM EST CE ([facility]) Name Value Range Interpretation Code Description Data Natali rce(s) Supporting Document(s) bedside glucose 166 mg/dL 70-105 Above high normal Bedside Gluco se CE ([facility]) ID Date Data Source [id number] 09/08/2020 07:54:00 AM EST CE ([facility]) Name Value Range Interpretation Code Description Data Natali rce(s) Supporting Document(s) bedside glucose 166 mg/dL 70-105 Above high normal Bedside Gluco se CE ([facility]) ID Date Data Source [id number] 09/07/2020 10:21:00 PM EST CE ([facility]) Name Value Range Interpretation Code Description Data Natali rce(s) Supporting Document(s) bedside glucose 220 mg/dL 70-105 Above high normal Bedside Gluco se CE ([facility]) ID Date Data Source [id number] 09/07/2020 10:21:00 PM EST CE ([facility]) Name Value Range Interpretation Code Description Data Natali rce(s) Supporting Document(s) bedside glucose 220 mg/dL 70-105 Above high normal Bedside Gluco se CE ([facility]) ID Date Data Source [id number] 09/07/2020 10:21:00 PM EST CE ([facility]) Name Value Range Interpretation Code Description Data Natali rce(s) Supporting Document(s) bedside glucose 220 mg/dL 70-105 Above high normal Bedside Gluco se DR[facility] ([facility]) ID Date Data Source [id number] 09/07/2020 07:51:00 PM EST CE ([facility]) Name Value Range Interpretation Code Description Data Natali rce(s) Supporting Document(s) blood urea nitrogen 25 mg/dL 7-18 Above high normal Blood Ure a Nitrogen CE ([facility]) glucose, fasting 154 mg/dL 70-100 Above high normal Glucose, Fas ting DR[facility] ([facility]) creatinine for GFR 1.19 mg/dL 0.70-1.30 Creatinine for GF R DRIFT ([facility]) glomerular filtration rate > 60.0 >56 Glomerula r Filtration Rate DR[facility] ([facility]) sodium level 129 mEq/L 136-145 Below low normal Sodium Level ATH NA ([facility]) potassium serum 4.8 mEq/L 3.5-5.1 Potassium Serum ATHE NA ([facility]) chloride level 93 mEq/L 98-107 Below low normal Chloride Level DR[facility] ([facility]) carbon dioxide level 25 mEq/L 21-32 Carbon Dioxide Level DR[facility] ([facility]) anion gap 11 mEq/L 8-16 Anion Gap CE ([facility]) calcium level 7.9 mg/dL 8.5-10.1 Below low normal Calcium Level AT [facility] ([facility]) ID Date Data Source [id number] 09/07/2020 07:51:00 PM EST CE ([facility]) Name Value Range Interpretation Code Description Data Natali rce(s) Supporting Document(s) creatinine for GFR 1.19 mg/dL 0.70-1.30 Creatinine for GF R CE ([facility]) glucose, fasting 154 mg/dL 70-100 Above high normal Glucose, Fas ting DR[facility] ([facility]) glomerular filtration rate > 60.0 >56 Glomerula r Filtration Rate CE ([facility]) blood urea nitrogen 25 mg/dL 7-18 Above high normal Blood Ure a Nitrogen CE ([facility]) sodium level 129 mEq/L 136-145 Below low normal Sodium Level ATHE NA ([facility]) potassium serum 4.8 mEq/L 3.5-5.1 Potassium Serum ATHE NA ([facility]) chloride level 93 mEq/L 98-107 Below low normal Chloride Level CE ([facility]) anion gap 11 mEq/L 8-16 Anion Gap CE ([facility]) carbon dioxide level 25 mEq/L 21-32 Carbon Dioxide Level CE ([facility]) calcium level 7.9 mg/dL 8.5-10.1 Below low normal Calcium Level AT [facility]) ID Date Data Source [id number] 09/07/2020 07:51:00 PM EST DR[facility] ([facility]) Name Value Range Interpretation Code Description Data Natali rce(s) Supporting Document(s) glucose, fasting 154 mg/dL 70-100 Above high normal Glucose, Fas ting CE ([facility]) sodium level 129 mEq/L 136-145 Below low normal Sodium Level ATHE NA ([facility]) blood urea nitrogen 25 mg/dL 7-18 Above high normal Blood Ure a Nitrogen CE ([facility]) creatinine for GFR 1.19 mg/dL 0.70-1.30 Creatinine for GF R CE ([facility]) glomerular filtration rate > 60.0 >56 Glomerula r Filtration Rate CE ([facility]) chloride level 93 mEq/L 98-107 Below low normal Chloride Level CE ([facility]) potassium serum 4.8 mEq/L 3.5-5.1 Potassium Serum ATHE NA ([facility]) carbon dioxide level 25 mEq/L 21-32 Carbon Dioxide Level [facility] ([facility]) calcium level 7.9 mg/dL 8.5-10.1 Below low normal Calcium Level AT [facility] ([facility]) anion gap 11 mEq/L 8-16 Anion Gap CE ([facility]) ID Date Data Source [id number] 09/07/2020 03:35:00 PM EST CE ([facility]) Name Value Range Interpretation Code Description Data Natali rce(s) Supporting Document(s) bedside glucose 137 mg/dL 70-105 Above high normal Bedside Gluco se CE ([facility]) ID Date Data Source [id number] 09/07/2020 03:35:00 PM EST CE ([facility]) Name Value Range Interpretation Code Description Data Natali rce(s) Supporting Document(s) bedside glucose 137 mg/dL 70-105 Above high normal Bedside Gluco se CE ([facility]) ID Date Data Source [id number] 09/07/2020 03:35:00 PM EST CE ([facility]) Name Value Range Interpretation Code Description Data Natali rce(s) Supporting Document(s) bedside glucose 137 mg/dL 70-105 Above high normal Bedside Gluco se CE ([facility]) ID Date Data Source [id number] 09/07/2020 10:20:00 AM EST CE ([facility]) Name Value Range Interpretation Code Description Data Natali rce(s) Supporting Document(s) bedside glucose 120 mg/dL 70-105 Above high normal Bedside Gluco se CE ([facility]) ID Date Data Source [id number] 09/07/2020 10:20:00 AM EST CE ([facility]) Name Value Range Interpretation Code Description Data Natali rce(s) Supporting Document(s) bedside glucose 120 mg/dL 70-105 Above high normal Bedside Gluco se CE ([facility]) ID Date Data Source [id number] 09/07/2020 10:20:00 AM EST CE ([facility]) Name Value Range Interpretation Code Description Data Natali rce(s) Supporting Document(s) bedside glucose 120 mg/dL 70-105 Above high normal Bedside Gluco se CE ([facility]) ID Date Data Source [id number] 09/07/2020 05:27:00 AM EST CE ([facility]) Name Value Range Interpretation Code Description Data Natali rce(s) Supporting Document(s) folate > 24.0 >5.4 Folate CE ([facility]) ID Date Data Source [id number] 09/07/2020 05:27:00 AM EST CE ([facility]) Name Value Range Interpretation Code Description Data Natali rce(s) Supporting Document(s) vitamin B12 level 754 pg/mL 247-911 Vitamin B12 Level CE ([facility]) ID Date Data Source [id number] 09/07/2020 05:27:00 AM EST CE ([facility]) Name Value Range Interpretation Code Description Data Natali rce(s) Supporting Document(s) osmolality serum 276 mOsm/kg 275-295 Osmolality Serum A [facility] ([facility]) ID Date Data Source [id number] 09/07/2020 05:27:00 AM EST CE ([facility]) Name Value Range Interpretation Code Description Data Natali rce(s) Supporting Document(s) magnesium level 2.3 mg/dL 1.8-2.4 Magnesium Level ATHE NA ([facility]) ID Date Data Source [id number] 09/07/2020 05:27:00 AM EST CE ([facility]) Name Value Range Interpretation Code Description Data Natali rce(s) Supporting Document(s) CPK creatine phosphokinase 690 U/L 39-308 Above high nor mal CPK Creatine Phosphokinase CE ([facility]) ID Date Data Source [id number] 09/07/2020 05:27:00 AM EST DR[facility] ([facility]) Name Value Range Interpretation Code Description Data Natali rce(s) Supporting Document(s) glucose, fasting 89 mg/dL 70-100 Glucose, Fasting AT [facility] ([facility]) blood urea nitrogen 20 mg/dL 7-18 Above high normal Blood Ure a Nitrogen CE ([facility]) glomerular filtration rate > 60.0 >56 Glomerula r Filtration Rate DR[facility] ([facility]) creatinine for GFR 0.95 mg/dL 0.70-1.30 Creatinine for GF R DR[facility] ([facility]) sodium level 128 mEq/L 136-145 Below low normal Sodium Level ATHE NA ([facility]) potassium serum 5.2 mEq/L 3.5-5.1 Above high normal Potassium Ser um DR[facility] ([facility]) chloride level 95 mEq/L 98-107 Below low normal Chloride Level DRIFT ([facility]) anion gap 16 mEq/L 8-16 Anion Gap DR[facility] ([facility]) carbon dioxide level 17 mEq/L 21-32 Below low normal Carbon Di oxide Level DR[facility] ([facility]) AST/SGOT 69 U/L 7-37 Above high normal AST/SGOT DR[facility] ([facility]) calcium level 7.8 mg/dL 8.5-10.1 Below low normal Calcium Level AT [facility]) alkaline phosphatase 125 U/L 45-117 Above high normal Alkaline Phosphatase DR[facility] ([facility]) ALT/SGPT 24 U/L 12-78 ALT/SGPT DR[facility] ([facility]) total protein 6.1 gm/dL 6.4-8.2 Below low normal Total Protein AT [facility]) bilirubin,total 1.2 mg/dL 0.2-1.0 Above high normal Bilirubin,tot al [facility]) albumin 2.8 gm/dL 3.2-5.2 Below low normal Albumin DR[facility] ( [facility]) albumin/globulin ratio Albumin/globu aldo Ratio [facility]) ID Date Data Source [id number] 09/07/2020 05:27:00 AM EST CE ([facility]) Name Value Range Interpretation Code Description Data Natali rce(s) Supporting Document(s) white blood count 5.4 10 4.0-10.0 White Blood Count CE ([facility]) red blood count 3.54 10 4.30-6.10 Below low normal Red Blood Coun t CE ([facility]) hemoglobin 12.7 g/dL 13.5-17.5 Below low normal Hemoglobin CE ( [facility]) mean corpuscular volume 109.9 fL 80.0-96.0 Above high normal Mean Corpuscular Volume CE ([facility]) hematocrit 38.9 % 42.0-52.0 Below low normal Hematocrit CE ( [facility]) mean corpuscular hemoglobin 35.9 pg 27.0-33.0 Above high no rmal Mean Corpuscular Hemoglobin CE ([facility]) mean corpuscular HGB conc 32.6 g/dL 32.0-36.5 Mean Corpu scular HGB Conc CE ([facility]) platelet count, automated 123 10 150-450 Below low jania l Platelet Count, Automated CE ([facility]) red cell distribution width 14.5 % 11.5-14.5 Red Cell Distribution Width CE ([facility]) nucleated red blood cell % 0.0 % 0-0 Nucleated Red Blood Cell % CE ([facility]) ID Date Data Source [id number] 09/07/2020 05:27:00 AM EST CE ([facility]) Name Value Range Interpretation Code Description Data Natali rce(s) Supporting Document(s) folate > 24.0 >5.4 Folate CE ([facility]) ID Date Data Source [id number] 09/07/2020 05:27:00 AM EST CE ([facility]) Name Value Range Interpretation Code Description Data Natali rce(s) Supporting Document(s) vitamin B12 level 754 pg/mL 247-911 Vitamin B12 Level CE ([facility]) ID Date Data Source [id number] 09/07/2020 05:27:00 AM EST CE ([facility]) Name Value Range Interpretation Code Description Data Natali rce(s) Supporting Document(s) osmolality serum 276 mOsm/kg 275-295 Osmolality Serum A [facility] ([facility]) ID Date Data Source [id number] 09/07/2020 05:27:00 AM EST CE ([facility]) Name Value Range Interpretation Code Description Data Natali rce(s) Supporting Document(s) magnesium level 2.3 mg/dL 1.8-2.4 Magnesium Level ATHE ([facility]) ID Date Data Source [id number] 09/07/2020 05:27:00 AM EST CE ([facility]) Name Value Range Interpretation Code Description Data Natali rce(s) Supporting Document(s) CPK creatine phosphokinase 690 U/L 39-308 Above high nor mal CPK Creatine Phosphokinase CE ([facility]) ID Date Data Source [id number] 09/07/2020 05:27:00 AM EST CE ([facility]) Name Value Range Interpretation Code Description Data Natali rce(s) Supporting Document(s) glucose, fasting 89 mg/dL 70-100 Glucose, Fasting AT [facility] ([facility]) blood urea nitrogen 20 mg/dL 7-18 Above high normal Blood Ure a Nitrogen CE ([facility]) creatinine for GFR 0.95 mg/dL 0.70-1.30 Creatinine for GF R CE ([facility]) sodium level 128 mEq/L 136-145 Below low normal Sodium Level ATHE NA ([facility]) potassium serum 5.2 mEq/L 3.5-5.1 Above high normal Potassium Ser um CE ([facility]) glomerular filtration rate > 60.0 >56 Glomerula r Filtration Rate [facility] ([facility]) carbon dioxide level 17 mEq/L 21-32 Below low normal Carbon Di oxide Level DR[facility] ([facility]) chloride level 95 mEq/L 98-107 Below low normal Chloride Level DR[facility] ([facility]) anion gap 16 mEq/L 8-16 Anion Gap [facility] ([facility]) ALT/SGPT 24 U/L 12-78 ALT/SGPT [facility] ([facility]) AST/SGOT 69 U/L 7-37 Above high normal AST/SGOT [facility] ([facility]) calcium level 7.8 mg/dL 8.5-10.1 Below low normal Calcium Level AT [facility]) alkaline phosphatase 125 U/L 45-117 Above high normal Alkaline Phosphatase [facility] ([facility]) bilirubin,total 1.2 mg/dL 0.2-1.0 Above high normal Bilirubin,tot al [facility]) total protein 6.1 gm/dL 6.4-8.2 Below low normal Total Protein AT [facility]) albumin 2.8 gm/dL 3.2-5.2 Below low normal Albumin DR[facility] ( [facility]) albumin/globulin ratio Albumin/globu aldo Ratio DR[facility] ([facility]) ID Date Data Source [id number] 09/07/2020 05:27:00 AM EST [facility] ([facility]) Name Value Range Interpretation Code Description Data Natali rce(s) Supporting Document(s) red blood count 3.54 10 4.30-6.10 Below low normal Red Blood Coun t DR[facility] ([facility]) white blood count 5.4 10 4.0-10.0 White Blood Count DR[facility] ([facility]) hematocrit 38.9 % 42.0-52.0 Below low normal Hematocrit DR[facility] ( [facility]) hemoglobin 12.7 g/dL 13.5-17.5 Below low normal Hemoglobin DR[facility] ( [facility]) mean corpuscular hemoglobin 35.9 pg 27.0-33.0 Above high no rmal Mean Corpuscular Hemoglobin CE ([facility]) mean corpuscular volume 109.9 fL 80.0-96.0 Above high normal Mean Corpuscular Volume CE ([facility]) red cell distribution width 14.5 % 11.5-14.5 Red Cell Distribution Width CE ([facility]) platelet count, automated 123 10 150-450 Below low jania l Platelet Count, Automated CE ([facility]) mean corpuscular HGB conc 32.6 g/dL 32.0-36.5 Mean Corpu scular HGB Conc CE ([facility]) nucleated red blood cell % 0.0 % 0-0 Nucleated Red Blood Cell % CE ([facility]) ID Date Data Source [id number] 09/07/2020 05:27:00 AM EST CE ([facility]) Name Value Range Interpretation Code Description Data Natali rce(s) Supporting Document(s) folate > 24.0 >5.4 Folate CE ([facility]) ID Date Data Source [id number] 09/07/2020 05:27:00 AM EST CE ([facility]) Name Value Range Interpretation Code Description Data Natali rce(s) Supporting Document(s) vitamin B12 level 754 pg/mL 247-911 Vitamin B12 Level CE ([facility]) ID Date Data Source [id number] 09/07/2020 05:27:00 AM EST CE ([facility]) Name Value Range Interpretation Code Description Data Natali rce(s) Supporting Document(s) osmolality serum 276 mOsm/kg 275-295 Osmolality Serum A [facility] ([facility]) ID Date Data Source [id number] 09/07/2020 05:27:00 AM EST CE ([facility]) Name Value Range Interpretation Code Description Data Natali rce(s) Supporting Document(s) magnesium level 2.3 mg/dL 1.8-2.4 Magnesium Level ATHE ([facility]) ID Date Data Source [id number] 09/07/2020 05:27:00 AM EST CE ([facility]) Name Value Range Interpretation Code Description Data Natali rce(s) Supporting Document(s) CPK creatine phosphokinase 690 U/L 39-308 Above high nor mal CPK Creatine Phosphokinase [facility] ([facility]) ID Date Data Source [id number] 09/07/2020 05:27:00 AM EST [facility] ([facility]) Name Value Range Interpretation Code Description Data Natali rce(s) Supporting Document(s) blood urea nitrogen 20 mg/dL 7-18 Above high normal Blood Ure a Nitrogen [facility] ([facility]) glucose, fasting 89 mg/dL 70-100 Glucose, Fasting AT [facility]) creatinine for GFR 0.95 mg/dL 0.70-1.30 Creatinine for GF R [facility] ([facility]) glomerular filtration rate > 60.0 >56 Glomerula r Filtration Rate DR[facility] ([facility]) sodium level 128 mEq/L 136-145 Below low normal Sodium Level ATHE NA ([facility]) carbon dioxide level 17 mEq/L 21-32 Below low normal Carbon Di oxide Level CE ([facility]) chloride level 95 mEq/L 98-107 Below low normal Chloride Level CE ([facility]) potassium serum 5.2 mEq/L 3.5-5.1 Above high normal Potassium Ser um CE ([facility]) anion gap 16 mEq/L 8-16 Anion Gap [facility] ([facility]) calcium level 7.8 mg/dL 8.5-10.1 Below low normal Calcium Level AT [facility]) AST/SGOT 69 U/L 7-37 Above high normal AST/SGOT [facility] ([facility]) ALT/SGPT 24 U/L 12-78 ALT/SGPT [facility] ([facility]) bilirubin,total 1.2 mg/dL 0.2-1.0 Above high normal Bilirubin,tot al [facility]) alkaline phosphatase 125 U/L 45-117 Above high normal Alkaline Phosphatase [facility]) total protein 6.1 gm/dL 6.4-8.2 Below low normal Total Protein AT [facility]) albumin 2.8 gm/dL 3.2-5.2 Below low normal Albumin DR[facility] ( [facility]) albumin/globulin ratio Albumin/globu aldo Ratio [facility]) ID Date Data Source [id number] 09/07/2020 05:27:00 AM EST [facility]) Name Value Range Interpretation Code Description Data Natali rce(s) Supporting Document(s) red blood count 3.54 10 4.30-6.10 Below low normal Red Blood Coun t [facility]) hemoglobin 12.7 g/dL 13.5-17.5 Below low normal Hemoglobin DR[facility] ( [facility]) white blood count 5.4 10 4.0-10.0 White Blood Count [facility]) mean corpuscular hemoglobin 35.9 pg 27.0-33.0 Above high no rmal Mean Corpuscular Hemoglobin DRIFT ([facility]) mean corpuscular volume 109.9 fL 80.0-96.0 Above high normal Mean Corpuscular Volume DRIFT ([facility]) hematocrit 38.9 % 42.0-52.0 Below low normal Hematocrit [facility]) platelet count, automated 123 10 150-450 Below low jania l Platelet Count, Automated [facility]) red cell distribution width 14.5 % 11.5-14.5 Red Cell Distribution Width [facility]) mean corpuscular HGB conc 32.6 g/dL 32.0-36.5 Mean Corpu scular HGB Conc [facility]) nucleated red blood cell % 0.0 % 0-0 Nucleated Red Blood Cell % [facility]) ID Date Data Source [id number] 09/07/2020 04:09:00 AM EST CE ([facility]) Name Value Range Interpretation Code Description Data Natali rce(s) Supporting Document(s) bedside glucose 91 mg/dL 70-105 Bedside Glucose ATHValery NA ([facility]) ID Date Data Source [id number] 09/07/2020 04:09:00 AM EST CE ([facility]) Name Value Range Interpretation Code Description Data Natali rce(s) Supporting Document(s) bedside glucose 91 mg/dL 70-105 Bedside Glucose ATHValery NA ([facility]) ID Date Data Source [id number] 09/07/2020 04:09:00 AM EST CE ([facility]) Name Value Range Interpretation Code Description Data Natali rce(s) Supporting Document(s) bedside glucose 91 mg/dL 70-105 Bedside Glucose ATHValery OLSON ([facility]) ID Date Data Source [id number] 09/07/2020 02:03:00 AM EST CE ([facility]) Name Value Range Interpretation Code Description Data Natali rce(s) Supporting Document(s) bedside glucose 61 mg/dL 70-105 Below low normal Bedside Glucos e CE ([facility]) ID Date Data Source [id number] 09/07/2020 02:03:00 AM EST CE ([facility]) Name Value Range Interpretation Code Description Data Natali rce(s) Supporting Document(s) bedside glucose 61 mg/dL 70-105 Below low normal Bedside Glucos e CE ([facility]) ID Date Data Source [id number] 09/07/2020 02:03:00 AM EST CE ([facility]) Name Value Range Interpretation Code Description Data Natali rce(s) Supporting Document(s) bedside glucose 61 mg/dL 70-105 Below low normal Bedside Glucos e CE ([facility]) ID Date Data Source [id number] 09/07/2020 02:01:00 AM EST CE ([facility]) Name Value Range Interpretation Code Description Data Natali rce(s) Supporting Document(s) lactic acid level, lactate 2.6 mmol/L 0.4-2.0 Above high nor mal Lactic Acid Level, Lactate CE ([facility]) ID Date Data Source [id number] 09/07/2020 02:01:00 AM EST CE ([facility]) Name Value Range Interpretation Code Description Data Natali rce(s) Supporting Document(s) lactic acid level, lactate 2.6 mmol/L 0.4-2.0 Above high nor mal Lactic Acid Level, Lactate CE ([facility]) ID Date Data Source [id number] 09/07/2020 02:01:00 AM EST CE ([facility]) Name Value Range Interpretation Code Description Data Natali rce(s) Supporting Document(s) lactic acid level, lactate 2.6 mmol/L 0.4-2.0 Above high nor mal Lactic Acid Level, Lactate CE ([facility]) ID Date Data Source [id number] 09/07/2020 01:16:00 AM EST CE ([facility]) Name Value Range Interpretation Code Description Data Natali rce(s) Supporting Document(s) bedside glucose 57 mg/dL 70-105 Below low normal Bedside Glucos e CE ([facility]) ID Date Data Source [id number] 09/07/2020 01:16:00 AM EST CE ([facility]) Name Value Range Interpretation Code Description Data Natali rce(s) Supporting Document(s) bedside glucose 57 mg/dL 70-105 Below low normal Bedside Glucos e CE ([facility]) ID Date Data Source [id number] 09/07/2020 01:16:00 AM EST CE ([facility]) Name Value Range Interpretation Code Description Data Natali rce(s) Supporting Document(s) bedside glucose 57 mg/dL 70-105 Below low normal Bedside Glucos valery ENCINAS ([facility]) ID Date Data Source [id number] 09/07/2020 12:47:00 AM EST CE ([facility]) Name Value Range Interpretation Code Description Data Natali rce(s) Supporting Document(s) venous pH 7.294 units 7.330-7.430 Below low normal Venous pH CE ([facility]) venous partial pressure CO2 37.2 mmHg 38.0-50.0 Below low nor mal Venous Partial Pressure CO2 DRIFT ([facility]) venous partial pressure O2 57.0 mmHg 30.0-50.0 Above high nor mal Venous Partial Pressure O2 CE ([facility]) venous total CO2 18.8 mEq/L 24.0-28.0 Below low normal Venous Total CO2 CE ([facility]) venous HCO3 17.6 mEq/L 23.0-27.0 Below low normal Venous HCO3 CE ([facility]) venous base excess -2.0-2.0 Below low normal Venous Base Excess CE ([facility]) venous standard HCO3 17.7 mEq/L Venous Standard HCO3 CE ([facility]) venous O2 saturation 84.1 % 60.0-80.0 Above high normal Venous O 2 Saturation DRIFT ([facility]) ID Date Data Source [id number] 09/07/2020 12:47:00 AM EST CE ([facility]) Name Value Range Interpretation Code Description Data Natali rce(s) Supporting Document(s) venous pH 7.294 units 7.330-7.430 Below low normal Venous pH CE ([facility]) venous partial pressure CO2 37.2 mmHg 38.0-50.0 Below low nor mal Venous Partial Pressure CO2 CE ([facility]) venous partial pressure O2 57.0 mmHg 30.0-50.0 Above high nor mal Venous Partial Pressure O2 CE ([facility]) venous HCO3 17.6 mEq/L 23.0-27.0 Below low normal Venous HCO3 CE ([facility]) venous total CO2 18.8 mEq/L 24.0-28.0 Below low normal Venous Total CO2 CE ([facility]) venous O2 saturation 84.1 % 60.0-80.0 Above high normal Venous O 2 Saturation CE ([facility]) venous standard HCO3 17.7 mEq/L Venous Standard HCO3 CE ([facility]) venous base excess -2.0-2.0 Below low normal Venous Base Excess CE ([facility]) ID Date Data Source [id number] 09/07/2020 12:47:00 AM EST CE ([facility]) Name Value Range Interpretation Code Description Data Natali rce(s) Supporting Document(s) venous pH 7.294 units 7.330-7.430 Below low normal Venous pH CE ([facility]) venous partial pressure CO2 37.2 mmHg 38.0-50.0 Below low nor mal Venous Partial Pressure CO2 CE ([facility]) venous total CO2 18.8 mEq/L 24.0-28.0 Below low normal Venous Total CO2 CE ([facility]) venous partial pressure O2 57.0 mmHg 30.0-50.0 Above high nor mal Venous Partial Pressure O2 CE ([facility]) venous base excess -2.0-2.0 Below low normal Venous Base Excess CE ([facility]) venous standard HCO3 17.7 mEq/L Venous Standard HCO3 CE ([facility]) venous HCO3 17.6 mEq/L 23.0-27.0 Below low normal Venous HCO3 CE ([facility]) venous O2 saturation 84.1 % 60.0-80.0 Above high normal Venous O 2 Saturation CE ([facility]) ID Date Data Source [id number] 09/06/2020 09:46:00 PM EST CE ([facility]) Name Value Range Interpretation Code Description Data Natali rce(s) Supporting Document(s) sodium,random urine < 10 Sodium,random Ur ine CE ([facility]) ID Date Data Source [id number] 09/06/2020 09:46:00 PM EST CE ([facility]) Name Value Range Interpretation Code Description Data Natali rce(s) Supporting Document(s) osmolality urine 503 mOsm/kg 500-800 Osmolality Urine A THENA ([facility]) ID Date Data Source [id number] 09/06/2020 09:46:00 PM EST CE ([facility]) Name Value Range Interpretation Code Description Data Natali rce(s) Supporting Document(s) appearance, urine cloudy clear Above high normal Appearance, Urine CE ([facility]) pH,urine 5.0 units 5.0-9.0 pH,urine CE ([facility]) color, urine eduardo yellow Color, Urine CE ([facility]) protein, urine auto 2+ negative Above high normal Protein, Urine Auto CE ([facility]) glucose, urine (UA) auto negative negative Glucose, Ur ine (UA) Auto CE ([facility]) specific gravity urine auto 1.002-1.035 Specifi c [place] Urine Auto CE ([facility]) ketone, urine auto 1+ negative Above high normal Ketone, Ur ine Auto CE ([facility]) urobilinogen, urine auto 4.0 mg/dL 0.0-2.0 Above high jania l Urobilinogen, Urine Auto CE ([facility]) leukocyte esterase, urine auto 2+ negative Above high normal Leukocyte Esterase, Urine Auto CE ([facility]) nitrite, urine auto negative negative Nitrite, Urine A uto CE ([facility]) bilirubin, urine auto 1+ negative Above high normal Bilirub in, Urine Auto CE ([facility]) blood, urine blood negative negative Blood, Urine Bloo d CE ([facility]) WBC, urine auto 38 /hpf 0-3 Above high normal WBC, Urine Au to CE ([facility]) RBC, urine auto 6 /hpf 0-3 Above high normal RBC, Urine Au to CE ([facility]) squamous epithelial cell ur AU 2 /hpf 0-6 Squam ous Epithelial Cell Ur AU CE ([facility]) bacteria, urine auto negative negative Bacteria, Urine Auto CE ([facility]) hyaline cast, urine auto 49 /lpf 0-1 Hyaline Gregory t, Urine Auto CE ([facility]) mucus, urine small negative Mucus, Urine CE ([facility]) ID Date Data Source [id number] 09/06/2020 09:46:00 PM EST CE ([facility]) Name Value Range Interpretation Code Description Data Natali rce(s) Supporting Document(s) sodium,random urine < 10 Sodium,random Ur ine CE ([facility]) ID Date Data Source [id number] 09/06/2020 09:46:00 PM EST CE ([facility]) Name Value Range Interpretation Code Description Data Natali rce(s) Supporting Document(s) osmolality urine 503 mOsm/kg 500-800 Osmolality Urine A THENA ([facility]) ID Date Data Source [id number] 09/06/2020 09:46:00 PM EST CE ([facility]) Name Value Range Interpretation Code Description Data Natali rce(s) Supporting Document(s) color, urine eduardo yellow Color, Urine CE ([facility]) appearance, urine cloudy clear Above high normal Appearance, Urine CE ([facility]) pH,urine 5.0 units 5.0-9.0 pH,urine CE ([facility]) glucose, urine (UA) auto negative negative Glucose, Ur ine (UA) Auto CE ([facility]) protein, urine auto 2+ negative Above high normal Protein, Urine Auto CE ([facility]) ketone, urine auto 1+ negative Above high normal Ketone, Ur ine Auto CE ([facility]) urobilinogen, urine auto 4.0 mg/dL 0.0-2.0 Above high jania l Urobilinogen, Urine Auto CE ([facility]) specific gravity urine auto 1.002-1.035 Specifi c [place] Urine Auto CE ([facility]) leukocyte esterase, urine auto 2+ negative Above high normal Leukocyte Esterase, Urine Auto CE ([facility]) nitrite, urine auto negative negative Nitrite, Urine A uto CE ([facility]) blood, urine blood negative negative Blood, Urine Bloo d CE ([facility]) bilirubin, urine auto 1+ negative Above high normal Bilirub in, Urine Auto CE ([facility]) mucus, urine small negative Mucus, Urine CE ([facility]) WBC, urine auto 38 /hpf 0-3 Above high normal WBC, Urine Au to CE ([facility]) bacteria, urine auto negative negative Bacteria, Urine Auto CE ([facility]) squamous epithelial cell ur AU 2 /hpf 0-6 Squam ous Epithelial Cell Ur AU CE ([facility]) RBC, urine auto 6 /hpf 0-3 Above high normal RBC, Urine Au to CE ([facility]) hyaline cast, urine auto 49 /lpf 0-1 Hyaline Gregory t, Urine Auto CE ([facility]) ID Date Data Source [id number] 09/06/2020 09:46:00 PM EST CE ([facility]) Name Value Range Interpretation Code Description Data Natali rce(s) Supporting Document(s) sodium,random urine < 10 Sodium,random Ur ine CE ([facility]) ID Date Data Source [id number] 09/06/2020 09:46:00 PM EST CE ([facility]) Name Value Range Interpretation Code Description Data Natali rce(s) Supporting Document(s) osmolality urine 503 mOsm/kg 500-800 Osmolality Urine A THENA ([facility]) ID Date Data Source [id number] 09/06/2020 09:46:00 PM EST CE ([facility]) Name Value Range Interpretation Code Description Data [facility] rce(s) Supporting Document(s) appearance, urine cloudy clear Above high normal Appearance, Urine CE ([facility]) color, urine eduardo yellow Color, Urine CE ([facility]) protein, urine auto 2+ negative Above high normal Protein, Urine Auto CE ([facility]) pH,urine 5.0 units 5.0-9.0 pH,urine CE ([facility]) specific gravity urine auto 1.002-1.035 Specifi c [place] Urine Auto CE ([facility]) glucose, urine (UA) auto negative negative Glucose, Ur ine (UA) Auto DRIFT ([facility]) bilirubin, urine auto 1+ negative Above high normal Bilirub in, Urine Auto DRIFT ([facility]) urobilinogen, urine auto 4.0 mg/dL 0.0-2.0 Above high jania l Urobilinogen, Urine Auto CE ([facility]) ketone, urine auto 1+ negative Above high normal Ketone, Ur ine Auto DR[facility] ([facility]) nitrite, urine auto negative negative Nitrite, Urine A uto CE ([facility]) WBC, urine auto 38 /hpf 0-3 Above high normal WBC, Urine Au to CE ([facility]) RBC, urine auto 6 /hpf 0-3 Above high normal RBC, Urine Au to CE ([facility]) blood, urine blood negative negative Blood, Urine Bloo d CE ([facility]) leukocyte esterase, urine auto 2+ negative Above high normal Leukocyte Esterase, Urine Auto CE ([facility]) mucus, urine small negative Mucus, Urine CE ([facility]) bacteria, urine auto negative negative Bacteria, Urine Auto CE ([facility]) hyaline cast, urine auto 49 /lpf 0-1 Hyaline Gregory t, Urine Auto CE ([facility]) squamous epithelial cell ur AU 2 /hpf 0-6 Squam ous Epithelial Cell Ur AU CE ([facility]) ID Date Data Source [id number] 09/06/2020 09:45:00 PM EST CE ([facility]) Name Value Range Interpretation Code Description Data Natali rce(s) Supporting Document(s) ID Date Data Source [id number] 09/06/2020 09:45:00 PM EST CE ([facility]) Name Value Range Interpretation Code Description Data Natali rce(s) Supporting Document(s) ID Date Data Source [id number] 09/06/2020 09:45:00 PM EST CE ([facility]) Name Value Range Interpretation Code Description Data Natali rce(s) Supporting Document(s) glucose, fasting 52 mg/dL 70-100 Below low normal Glucose, Fast ing DRIFT ([facility]) blood urea nitrogen 16 mg/dL 7-18 Blood Urea Nitro gen DRIFT ([facility]) creatinine for GFR 0.78 mg/dL 0.70-1.30 Creatinine for GF R DRIFT ([facility]) sodium level 126 mEq/L 136-145 Below low normal Sodium Level ATHE NA ([facility]) potassium serum 5.4 mEq/L 3.5-5.1 Above high normal Potassium Ser um CE ([facility]) glomerular filtration rate > 60.0 >56 Glomerula r Filtration Rate CE ([facility]) carbon dioxide level 16 mEq/L 21-32 Below low normal Carbon Di oxide Level DRIFT ([facility]) anion gap 17 mEq/L 8-16 Above high normal Anion Gap DRIFT ([facility]) calcium level 7.7 mg/dL 8.5-10.1 Below low normal Calcium Level AT [facility]) chloride level 93 mEq/L 98-107 Below low normal Chloride Level DRIFT ([facility]) ID Date Data Source [id number] 09/06/2020 09:45:00 PM EST CE ([facility]) Name Value Range Interpretation Code Description Data Natali rce(s) Supporting Document(s) ID Date Data Source [id number] 09/06/2020 09:45:00 PM EST CE ([facility]) Name Value Range Interpretation Code Description Data Natali rce(s) Supporting Document(s) ID Date Data Source [id number] 09/06/2020 09:45:00 PM EST CE ([facility]) Name Value Range Interpretation Code Description Data Natali rce(s) Supporting Document(s) glucose, fasting 52 mg/dL 70-100 Below low normal Glucose, Fast ing DRIFT ([facility]) creatinine for GFR 0.78 mg/dL 0.70-1.30 Creatinine for GF R DRIFT ([facility]) glomerular filtration rate > 60.0 >56 Glomer[place] r Filtration Rate DRIFT ([facility]) blood urea nitrogen 16 mg/dL 7-18 Blood Urea Nitro gen DRIFT ([facility]) sodium level 126 mEq/L 136-145 Below low normal Sodium Level ATHE NA ([facility]) anion gap 17 mEq/L 8-16 Above high normal Anion Gap DRIFT ([facility]) chloride level 93 mEq/L 98-107 Below low normal Chloride Level DRIFT ([facility]) potassium serum 5.4 mEq/L 3.5-5.1 Above high normal Potassium Ser um CE ([facility]) carbon dioxide level 16 mEq/L 21-32 Below low normal Carbon Di oxide Level CE ([facility]) calcium level 7.7 mg/dL 8.5-10.1 Below low normal Calcium Level AT [facility]) ID Date Data Source [id number] 09/06/2020 09:45:00 PM EST CE ([facility]) Name Value Range Interpretation Code Description Data Natali rce(s) Supporting Document(s) ID Date Data Source [id number] 09/06/2020 09:45:00 PM EST CE ([facility]) Name Value Range Interpretation Code Description Data Natali rce(s) Supporting Document(s) ID Date Data Source [id number] 09/06/2020 09:45:00 PM EST CE ([facility]) Name Value Range Interpretation Code Description Data Natali rce(s) Supporting Document(s) glucose, fasting 52 mg/dL 70-100 Below low normal Glucose, Fast ing DRIFT ([facility]) blood urea nitrogen 16 mg/dL 7-18 Blood Urea Nitro gen DRIFT ([facility]) creatinine for GFR 0.78 mg/dL 0.70-1.30 Creatinine for GF R DRIFT ([facility]) sodium level 126 mEq/L 136-145 Below low normal Sodium Level ATHE NA ([facility]) glomerular filtration rate > 60.0 >56 Glomerula r Filtration Rate DRIFT ([facility]) chloride level 93 mEq/L 98-107 Below low normal Chloride Level DRIFT ([facility]) carbon dioxide level 16 mEq/L 21-32 Below low normal Carbon Di oxide Level DRIFT ([facility]) potassium serum 5.4 mEq/L 3.5-5.1 Above high normal Potassium Ser um CE ([facility]) anion gap 17 mEq/L 8-16 Above high normal Anion Gap DRIFT ([facility]) calcium level 7.7 mg/dL 8.5-10.1 Below low normal Calcium Level AT [facility]) ID Date Data Source [id number] 09/06/2020 09:43:00 PM EST CE ([facility]) Name Value Range Interpretation Code Description Data Natali rce(s) Supporting Document(s) lactic acid sepsis protocol 3.8 mmol/L 0.4-2.0 Above high no rmal Lactic Acid Sepsis Protocol DRIFT ([facility]) ID Date Data Source [id number] 09/06/2020 09:43:00 PM EST CE ([facility]) Name Value Range Interpretation Code Description Data Natali rce(s) Supporting Document(s) lactic acid sepsis protocol 3.8 mmol/L 0.4-2.0 Above high no rmal Lactic Acid Sepsis Protocol DRIFT ([facility]) ID Date Data Source [id number] 09/06/2020 09:43:00 PM EST CE ([facility]) Name Value Range Interpretation Code Description Data Natali rce(s) Supporting Document(s) lactic acid sepsis protocol 3.8 mmol/L 0.4-2.0 Above high no rmal Lactic Acid Sepsis Protocol DRIFT ([facility]) ID Date Data Source [id number] 09/06/2020 08:23:00 PM EST [facility] Name Value Range Interpretation Code Description Data Natali rce(s) Supporting Document(s) SARS coronavirus 2 RNA [Presence] in Res piratory specimen by ABIOLA with probe detection [facility] This lab was ordered by [facility] a nd reported by [facility]. ID Date Data Source [id number] 06/04/2020 01:17:00 PM EDT MEDENT ([facility], ) Name Value Range Interpretation Code Description Data Natali rce(s) Supporting Document(s) PDFReport Laboratory test result MEDENT ([facility], ) FVC-Pred 4.83 L [facility] ([facility]) FVC-Pre 3.01 L [facility] ([facility]) FVC-%Pred-Pre 62 L [facility] ([facility], ) FVC-LLN 3.90 L [facility] ([facility]) Fev1-Pred 3.68 L [facility] ([facility]) Fev1-Pre 1.53 L [facility] ([facility], ) Fev1-%Pred-Pre 41 L MEDENT ([facility], ) Fev1-LLN 2.89 L MED[facility] ([facility], ) Fev6-Pred 4.62 L [facility] ([facility]) Fev6-Pre 2.99 L [facility] ([facility]) Fev6-LLN 3.71 L [facility] ([facility]) Fev6-%Pred-Pre 64 L [facility] ([facility], ) Boh1ecd-Rlk 51 % MED[facility] ([facility]) Hnv3xov-Lqbj 76 % [facility] ([facility]) Ghm0xiz-%Pred-Pre 66 % [facility] ([facility]) Gde6rlu-Dgnp 96 % [facility] ([facility]) Lul9kup-WQD 66 % [facility] ([facility]) Bkm2rfv-%Pred-Pre 103 % [facility] ([facility]) Dlo6zia-Ijr 99 % [facility] ([facility]) FEFMax-Pred 9.36 L/E/sec MEDENT ([facility]) FEFMax-%Pred-Pre 24 L/E/sec [facility] ([facility]) FEFMax-Pre 2.29 L/E/sec [facility] ([facility]) FEFMax-LLN 7.04 L/E/sec MEDENT ([facility]) [id number] 3.07 L/E/sec MEDENT ([facility]) [id number] 0.75 L/E/sec MEDENT ([facility]) [id number]-%Pred-Pre 24 L/E/sec MEDENT ([facility]) [id number] 1.47 L/E/sec MEDENT ([facility]) ExpTime-Pre 6.66 sec MEDENT ([facility]) [id number] 79 % MEDENT ([facility]) [id number] 51 % MEDENT ([facility]) [id number] 70 % MEDENT ([facility], ) [id number]-%Pred-Pre 64 % MEDENT ([facility]) ID Date Data Source [id number] 05/11/2020 01:18:41 PM EDT [facility] Name Value Range Interpretation Code Description Data Natali rce(s) Supporting Document(s) [facility] [id number]0oXQeG9LjbUDid3gnM9AcH2NzASNmGOBJQM1VpBOj jb2 [file] EyOTcgMDAwMDAgbiAKMDAwMDAwMTQwNiAwMDAwMCBu NKgwGRQjCTomVITnUUFuJJPwHI2yNnCmIKDoOBF5NFcqPHCgCOStkgCCGFKlLVRlUPulSQYtSIPkGYAn BXxuCLJwQUUhMMI1NGCiWZEcKC6wMfQnVXMwKHDwSJKlLpQ9PxLfRwSQvULslSsbita9UFctJ4n9NMJt XQqjGD0iihYqEMHeCvhaGd7wnGY5IJAtHxzCLx3Iw4KktmI4xqJhCihwXRPhKzGgCF2U ID Date Data Source [id number] 05/11/2020 01:01:55 PM EDT [facility] Name Value Range Interpretation Code Description Data Natali rce(s) Supporting Document(s) Progress Note [facility] [id number]/EWTojUNOqs5PjMXjwFKh7XXupJZKsA7BbGDY5sP5jNJF1IQgIMwAdGbSuGGAh lbm [file] [id number]== ID Date Data Source [id number] 05/12/2020 11:08:10 AM [facility] Cmnt XXX-Imp : NoneMicroorganism XXX Cult : 2019 nCoV Real-Time RT-PCR: NOT DETECTEDThis test method was designed to detect the causative agent of COVID-19. The Dept. of Pathology [facility] has Emergency Use Authorization (EUA) from the FDA to peform this test to allow for rapid response during a declared public health emergency.Initial validation was performed by the Centers for Disease Control and Prevention (CDC) and additionally validated by the Dept. of Pathology [facility]. Negative results do not preclude SARS-CoV-2 infection and should not be used as the sole basis for patient management decisions.Additional information is available on the following FDA websites for health care providers and patients. https://www.fda.gov/media/057331/download, ht tps://www.fda.gov/media/000567/download. Name Value Range Interpretation Code Description Data Natali rce(s) Supporting Document(s) ID Date Data Source [id number] 05/11/2020 01:01:00 PM [facility] Cmnt XXX-Imp : NoneMicroorganism XXX Cult : 2019 nCoV Real-Time RT-PCR: NOT DETECTEDThis test method was designed to detect the causative agent of COVID-19. The Dept. of Pathology [facility] has Emergency Use Authorization (EUA) from the FDA to peform this test to allow for rapid response during a declared public health emergency.Initial validation was performed by the Centers for Disease Control and Prevention (CDC) and additionally validated by the Dept. of Pathology [facility]. Negative results do not preclude SARS-CoV-2 infection and should not be used as the sole basis for patient management decisions.Additional information is available on the following FDA websites for health care providers and patients. https://www.fda.gov/media/708480/download, ht tps://www.fda.gov/media/266323/download. Name Value Range Interpretation Code Description Data Natali rce(s) Supporting Document(s) Microorganism identified in Unspecified specimen by [facility] This lab was ordered by [facility] and reported by [facility]. ID Date Data Source [id number] 05/11/2020 04:59:10 PM [facility] Name Value Range Interpretation Code Description Data Natali rce(s) Supporting Document(s) Leukocytes [#/volume] in Blood by Automated count 6.9 10*3/uL 4-10 [facility] Erythrocytes [#/volume] in Blood by Automated count 4.02 10*6/uL 4.6- 6.1 L [facility] Hemoglobin [Mass/volume] in Blood 15.4 g/dL 13.5-18 [facility] Hematocrit [Volume Fraction] of Blood by Automated count 45.6 % 4 1-53 [facility] Erythrocyte mean corpuscular volume [Entitic volume] b y Automated count 113.5 fL 80-96 H [facility] Erythrocyte mean corpuscular hemoglobin [Entitic mass] by Automated count 38.3 pg 27-33 H [facility] Erythrocyte mean corpuscular hemoglobin concentration [Mass/volume] by Automated count 33.8 g/dL 32.0-36.0 [facility] distribution width [Ratio] by Automated count 15.0 % 11.5-14.5 H [facility] Platelets [#/volume] in Blood by Automated count 288 10*3/uL 150-400 [facility] ID Date Data Source [id number] 05/11/2020 07:50:49 PM EDT [facility] Name Value Range Interpretation Code Description Data Natali rce(s) Supporting Document(s) Bicarbonate [Moles/volume] in Serum 18 mmol/L 22-29 L [facility] Chloride [Moles/volume] in Serum or Plasma 106 mmol/L 98-107 [facility] Creatinine [Mass/volume] in Serum or Plasma 0.51 mg/dL 0.70-1.20 L [facility] Glucose [Mass/volume] in Serum or Plasma 67 mg/dL 70-140 [facility] Potassium [Moles/volume] in Serum or Plasma 3.9 mmol/L 3.4-5.1 [facility] Hemolyzed Sodium [Moles/volume] in Serum or Plasma 138 mmol/L 136-145 [facility] Urea nitrogen [Mass/volume] in Serum or Plasma 4 mg/dL 6-20 [facility] Anion gap 3 in Serum or Plasma 14 mmol/L 8-15 [facility] Osmolality of Serum or Plasma by calculation 282 mosm/kg 275-300 [facility] Creatinine/Urea nitrogen [Mass Ratio] in Serum or Plasma 8 [facility] Calcium [Mass/volume] in Serum or Plasma 8.4 mg/dL 8.6-10.0 [facility] Glomerular filtration rate/1.73 sq M pre dicted among non-blacks [Volume Rate/Area] in Serum or Plasma by Creatinine-based formula (MDRD) >6 0 [facility] Glomerular filtration rate/1.73 sq M pre dicted among blacks [Volume Rate/Area] in Serum or Plasma by Creatinine-based formula (MDRD) >60 [facility] Procedure Social History Code Duration Value Status Description Data Source(s ) Alcohol intake 11/18/2020 12:00:00 AM EST Ex-drinker (finding) comp leted Ex- drinker (finding) [facility] Tobacco use and exposure 11/18/2020 12:00:00 AM EST Never used co mpleted Never used [facility] Cigarette pack-years 11/18/2020 12:00:00 AM EST UNK [facility] Cigarettes smoked current (pack per day) - Reported 11/19/19 12:00:00 AM EST UNK [facility]spital Smoking 11/18/2020 12:00:00 AM EST Former smoker completed Former smoker [facility] Alcohol intake 11/12/2020 12:00:00 AM EST Ex-drinker (finding) comp leted Ex- drinker (finding) [facility] Alcohol intake 09/22/2020 12:00:00 AM EST Yes completed [facility] Smoking 09/22/2020 12:00:00 AM EST Former smoker completed Former smoker [facility] Alcohol intake 05/11/2020 12:00:00 AM EDT Ex-drinker (finding) comp leted Ex- drinker (finding) [facility] Vital Signs ID Date Data Source UNK Name Value Range Interpretation Code Description Data Source(s) Systolic blood pressure 118 mm[Hg] 118 mm[Hg] [facility] Diastolic blood pressure 62 mm[Hg] 62 mm[Hg] [facility] ([facility]) Heart rate 80 /min 80 /min [facility] ([facility]) Oxygen saturation in Arterial blood by Pulse oximetry 93 % 93 % [facility] ([facility]) Body height 70 [in_i] 70 [in_i] [facility] ([facility]) 5'10" Body weight 137.00 [lb_av] 137.00 [lb_av] [facility] Body mass index (BMI) [Ratio] 19.7 kg/m2 19.7 k g/m2 [facility] ([facility]) [place] body weight 166 [lb_av] 166 [lb_av] [facility] Body weight 62.143 kg 62.[address] [facility] ([facility]) Body surface area Derived from formula 1.78 m2 1.[address] [facility] ([facility]) Diastolic blood pressure 76 mm[Hg] 76 mm[Hg] DRIFT ([facility]) Body height 72 [in_i] 72 [in_i] [facility] ([facility]) Body mass index (BMI) [Ratio] 18.6 kg/m2 18.6 k g/m2 [facility] ([facility]) Systolic blood pressure 142 mm[Hg] 142 mm[Hg] A THENA ([facility]) Body weight 2196 [oz_av] 2196 [oz_av] CE ([facility]) Diastolic blood pressure 85 mm[Hg] 85 mm[Hg] CE ([facility]) Body height 72 [in_i] 72 [in_i] [facility] ([facility]) Body mass index (BMI) [Ratio] 19 kg/m2 19 kg/ m2 [facility] ([facility]) Systolic blood pressure 147 mm[Hg] 147 mm[Hg] [facility] Body weight 2240 [oz_av] 2240 [oz_av] [facility] ([facility]) Body weight 2240 [oz_av] 2240 [oz_av] [facility] ([facility]) Diastolic blood pressure 85 mm[Hg] 85 mm[Hg] CE ([facility]) Body height 72 [in_i] 72 [in_i] [facility] ([facility]) Body mass index (BMI) [Ratio] 19 kg/m2 19 kg/ m2 CE ([facility]) Systolic blood pressure 147 mm[Hg] 147 mm[Hg] A THENA ([facility]) Diastolic blood pressure 73 mm[Hg] 73 mm[Hg] CE ([facility]) Diastolic blood pressure 69 mm[Hg] 69 mm[Hg] [facility] ([facility]) Body height 72 [in_i] 72 [in_i] [facility] ([facility]) Body mass index (BMI) [Ratio] 18.7 kg/m2 18.7 k g/m2 [facility] ([facility]) Systolic blood pressure 113 mm[Hg] 113 mm[Hg] A THENA ([facility]) Systolic blood pressure 97 mm[Hg] 97 mm[Hg] A THENA ([facility]) Body weight 2208 [oz_av] 2208 [oz_av] CE ([facility]) Diastolic blood pressure 73 mm[Hg] 73 mm[Hg] CE ([facility]) Diastolic blood pressure 69 mm[Hg] 69 mm[Hg] CE ([facility]) Body height 72 [in_i] 72 [in_i] CE ([facility]) Body mass index (BMI) [Ratio] 18.7 kg/m2 18.7 k g/m2 CE ([facility]) Systolic blood pressure 113 mm[Hg] 113 mm[Hg] A THENA ([facility]) Systolic blood pressure 97 mm[Hg] 97 mm[Hg] A [facility] ([facility]) Body weight 2208 [oz_av] 2208 [oz_av] CE ([facility]) Diastolic blood pressure 73 mm[Hg] 73 mm[Hg] CE ([facility]) Diastolic blood pressure 69 mm[Hg] 69 mm[Hg] CE ([facility]) Body height 72 [in_i] 72 [in_i] CE ([facility]) Body mass index (BMI) [Ratio] 18.7 kg/m2 18.7 k g/m2 CE ([facility]) Systolic blood pressure 113 mm[Hg] 113 mm[Hg] A THENA ([facility]) Systolic blood pressure 97 mm[Hg] 97 mm[Hg] A THENA ([facility]) Body weight 2208 [oz_av] 2208 [oz_av] CE ([facility]) Diastolic blood pressure 80 mm[Hg] 80 mm[Hg] [facility] Systolic blood pressure 148 mm[Hg] 148 mm[Hg] S [facility] Heart rate 118 /min 118 /min [facility] Body height 182.9 cm 182.9 cm [facility] Body weight 62.596 kg 62.596 kg [facility] Body mass index (BMI) [Ratio] 18.72 kg/m2 18.72 kg/m2 [facility] [place] body weight 166 [lb_av] 166 [lb_av] JOSELITO T ([facility]) Body weight 56.700 kg 56.700 kg WANDA ([facility]) Body surface area Derived from formula 1.71 m2 1.71 m2 WANDA ([facility]) Systolic blood pressure 122 mm[Hg] 122 mm[Hg] M [facility] ([facility]) Diastolic blood pressure 80 mm[Hg] 80 mm[Hg] [facility] ([facility]) Heart rate 69 /min 69 /min [facility] ([facility]) Oxygen saturation in Arterial blood by Pulse oximetry 98 % 98 % [facility] ([facility]) Body temperature 98.0 [degF] 98.0 [degF] [facility] ([facility]) Body height 70 [in_i] 70 [in_i] [facility] ([facility]) 5'10" Body weight 125.00 [lb_av] 125.00 [lb_av] MEDEN T ([facility]) Body mass index (BMI) [Ratio] 17.9 kg/m2 17.9 k g/m2 [facility] ([facility]) Body height 70 [in_i] 70 [in_i] [facility] ([facility]) 5'10" Body weight 116.00 [lb_av] 116.00 [lb_av] MEDEN T ([facility]) Body mass index (BMI) [Ratio] 16.6 kg/m2 16.6 k g/m2 [facility] ([facility]) [place] body weight 166 [lb_av] 166 [lb_av] [facility] Body weight 52.618 kg 52.[address] [facility] ([facility]) Systolic blood pressure 120 mm[Hg] 120 mm[Hg] [facility] ([facility]) Diastolic blood pressure 80 mm[Hg] 80 mm[Hg] [facility] ([facility]) Heart rate 92 /min 92 /min [facility] ([facility]) Oxygen saturation in Arterial blood by Pulse oximetry 97 % 97 % [facility] ([facility]) Body temperature 98.3 [degF] 98.3 [degF] [facility] ([facility]) Systolic blood pressure 132 mm[Hg] 132 mm[Hg] M [facility] ([facility]) Diastolic blood pressure 68 mm[Hg] 68 mm[Hg] [facility] ([facility]) Heart rate 98 /min 98 /min [facility] ([facility]) Oxygen saturation in Arterial blood by Pulse oximetry 97 % 97 % [facility] ([facility]) Body temperature 98.4 [degF] 98.4 [degF] [facility] ([facility]) Body height 70 [in_i] 70 [in_i] [facility] ([facility]) 5'10" Body weight 104.00 [lb_av] 104.00 [lb_av] [facility] Body mass index (BMI) [Ratio] 14.9 kg/m2 14.9 k g/m2 [facility] ([facility]) [place] body weight 166 [lb_av] 166 [lb_av] [facility] Body weight 47.174 kg 47.[address] [facility] ([facility]) ID Date Data Source [id number] 11/20/2020 02:06:17 PM [facility] Name Value Range Interpretation Code Description Data Source(s) WEIGHT RECORDED 130 lb 130 lb [facility] ID Date Data Source [id number] 11/19/2020 08:01:08 AM [facility] Name Value Range Interpretation Code Description Data Source(s) WEIGHT RECORDED 119.49 lb 119.49 lb [facility] ID Date Data Source [id number] 11/09/2020 10:10:28 AM [facility] Name Value Range Interpretation Code Description Data Source(s) WEIGHT RECORDED 128.75 lb 128.75 lb [facility] Body height Measured 70.24 in 70.24 in [facility] ID Date Data Source [id number] 05/11/2020 07:50:59 PM [facility] Name Value Range Interpretation Code Description Data Source(s) WEIGHT RECORDED 110.01 lb 110.01 lb [facility] Body height Measured 70.28 in 70.28 in [facility] Patient Treatment Plan of Care Planned Activity Planned Date Details Description Data Source (s) Acetaminophen 325 MG / Hydrocodone Bitartrate 5 MG Ora l Tablet 11/18/2020 12:00:00 AM [facility] Mupirocin 0.02 MG/MG Topical Ointment 11/13/2020 05:00:00 PM [facility] Oxycodone Hydrochloride 5 MG Oral Tablet 11/13/2020 12:00:00 AM [facility] Acetaminophen 325 MG Oral Tablet 11/13/2020 12:00:00 AM [facility] Oxycodone Hydrochloride 5 MG Oral Tablet 11/12/2020 08:24:17 PM [facility] Digoxin 0.125 MG Oral Tablet 09/22/2020 12:00:00 AM [facility] Cefuroxime 500 MG Oral Tablet 09/14/2020 12:00:00 AM [facility] doxycycline hyclate 100 MG Oral Capsule 09/14/2020 12:00:00 AM [facility] tiotropium 0.018 MG/ACTUAT Inhalant Powder [Spiriva] 020 12:00:00 AM [facility] gabapentin 100 MG Oral Capsule 05/15[facility]15[facility] Digoxin 0.125 MG Oral Tablet 01/09/2018 12:00:00 AM [facility] Metoclopramide 10 MG Oral Tablet 01/01/2018 12:00:00 AM [facility] OxyCODONE HCl ER (OXYCONTIN) 20 MG T12A 12 hr tablet 016 12:00:00 AM [facility] rivaroxaban 20 MG Oral Tablet 01/22/2015 12:00:00 AM [facility] Instant Protein POWD 01/22/2015 12:00:00 AM [facility] Oxycodone Hydrochloride 1 MG/ML Oral Solution 01/22/2015 12:00:00 A M [facility] Morphine Sulfate 30 MG Oral Tablet 01/06/2015 12:00:00 AM [facility] Morphine Sulfate 30 MG Oral Tablet 12/04/2014 12:00:00 AM EDT [facility] Oxycodone Hydrochloride 20 MG Oral Tablet 07/15/2014 12:00:00 AM ES T [facility] Metoprolol Tartrate 25 MG Oral Tablet 01/21/2014 12:00:00 AM EDT [facility] Potassium 99 MG TABS 01/10/2014 12:00:00 AM EDT [facility] Magnesium Oxide 400 MG Oral Tablet 03/09/2012 12:00:00 AM EDT [facility] rivaroxaban 15 MG Oral Tablet 03/09/2012 12:00:00 AM EDT [facility] Guaifenesin 20 MG/ML Oral Solution [Robafen] CE ([facility]) 12 HR Oxycodone Hydrochloride 20 MG Extended Release Oral Ta blet [Oxycontin] [facility] ([facility]) Mupirocin 0.02 MG/MG Topical Ointment [facility] ([facility]) Morphine Sulfate 30 MG Extended Release Oral Tablet [facility] ([facility]) Metoclopramide 10 MG Oral Tablet [facility] ([facility]) Loratadine 10 MG Oral Tablet [facility] ([facility]) Ketoconazole 20 MG/ML Topical Cream CE ([facility]) gabapentin 100 MG Oral Capsule [facility] ([facility]) Amoxicillin 875 MG / Clavulanate 125 MG Oral Tablet CE ([facility]) pantoprazole 40 MG Delayed Release Oral Tablet [facility] gabapentin 50 MG/ML Oral Solution [facility] Metoclopramide 10 MG Oral Tablet [facility] 12 HR Oxycodone Hydrochloride 20 MG Extended Release Oral Ta blet [Oxycontin] CE ([facility]) Mupirocin 0.02 MG/MG Topical Ointment CE ([facility]) Morphine Sulfate 30 MG Extended Release Oral Tablet CE ([facility]) Metoclopramide 10 MG Oral Tablet CE ([facility]) Loratadine 10 MG Oral Tablet CE ([facility]) Ketoconazole 20 MG/ML Topical Cream CE ([facility]) gabapentin 100 MG Oral Capsule CE ([facility]) Amoxicillin 875 MG / Clavulanate 125 MG Oral Tablet CE ([facility]) Esomeprazole 40 MG Delayed Release Oral Capsule [facility] Esomeprazole 40 MG Delayed Release Oral Capsule [facility] Guaifenesin 20 MG/ML Oral Solution [Robafen] CE ([facility]) 12 HR Oxycodone Hydrochloride 20 MG Extended Release Oral Ta blet [Oxycontin] CE ([facility]) Mupirocin 0.02 MG/MG Topical Ointment CE ([facility]) Morphine Sulfate 30 MG Extended Release Oral Tablet CE ([facility]) Metoclopramide 10 MG Oral Tablet CE ([facility]) Loratadine 10 MG Oral Tablet CE ([facility]) Ketoconazole 20 MG/ML Topical Cream CE ([facility]) gabapentin 100 MG Oral Capsule CE ([facility]) Amoxicillin 875 MG / Clavulanate 125 MG Oral Tablet CE ([facility]) Guaifenesin 20 MG/ML [facility]
--- OUTSIDE RECORDS SUMMARY | 2021-07-07 17:58 | CCD ---
Author Author [facility] Organization [facility] Address Unknown Phone Unavailable Care Team Providers Care Oral Pathologist Name Role Phone Anshul Olguin MD Unavailable [...] Nelson QUEVEDO MD Unavailable Unavailable DANIEL, Nelson QUEVDEO MD Unavailable Unavailable DANIEL, Nelson QUEVEDO MD [...] Maura PA-C Unavailable Unavailable LATONIA, HANNAH HARSH SOUND TESTER-C Unavailable Unavailable LATONIA, HANNAH HARSH SOUND TESTER-C Unavailable Unavailable LATONIA, HANNAH HARSH SOUND TESTER-C Unavailable Unavailable LATONIA, HANNAH HARSH SOUND TESTER-C Unavailable Unavailable LATONIA, HANNAH HARSH SOUND TESTER-C Unavailable Unavailable LATONIA, HANNAH HARSH SOUND TESTER-C Unavailable Unavailable LATONAI, HANNAH HARSH SOUND TESTER-C Unavailable Unavailable LATONIA, HANNAH HARSH SOUND TESTER-C Unavailable Unavailable LATONIA, HANNAH HARSH SOUND TESTER-C Unavailable Unavailable LATONIA, HANNAH HARSH SOUND TESTER-C Unavailable Unavailable LATONIA, HANNAH HARSH SOUND TESTER-C Unavailable Unavailable LATONIA, HANNAH HARSH SOUND TESTER-C Unavailable Unavailable LATONIA, HANNAH HARSH SOUND TESTER-C Unavailable Unavailable LATONIA, HANNAH HARSH SOUND TESTER-C Unavailable Unavailable LATONIA, HANNAH HARSH SOUND TESTER-C Unavailable Unavailable LATONIA, HANNAH HARSH SOUND TESTER-C Unavailable Unavailable LATONIA, HANNAH HARSH SOUND TESTER-C Unavailable Unavailable Drew SALES Unavailable Unavailable Darien Hedrick NP Unavailable Unavailable Darien Hedrick NP Unavailable Unavailable Floridalma, N Shiv TOLL LINE INSPECTOR Unavailable Unavailable [place], N Shiv TOLL LINE INSPECTOR Unavailable Unavailable Floridalma, N Shiv TOLL LINE INSPECTOR Unavailable Unavailable [place], N Shiv TOLL LINE INSPECTOR Unavailable Unavailable [place], N Shiv TOLL LINE INSPECTOR Unavailable Unavailable [place], N Shiv TOLL LINE INSPECTOR Unavailable Unavailable Floridalma, N Shiv TOLL LINE INSPECTOR Unavailable Unavailable Floridalma, N Shiv TOLL LINE INSPECTOR Unavailable Unavailable Floridalma, N Shiv TOLL LINE INSPECTOR Unavailable Unavailable [place], N Shiv TOLL LINE INSPECTOR Unavailable Unavailable [place], N Shiv TOLL LINE INSPECTOR Unavailable Unavailable [place], N Shiv TOLL LINE INSPECTOR Unavailable Unavailable Floridalma, N Shiv TOLL LINE INSPECTOR Unavailable Unavailable Flor[place]ma, N Shiv TOLL LINE INSPECTOR Unavailable Unavailable Floridalma, N Shiv TOLL LINE INSPECTOR Unavailable Unavailable Floridalma, N Shiv TOLL LINE INSPECTOR Unavailable Unavailable Floridalma, N Shiv TOLL LINE INSPECTOR Unavailable Unavailable [place], N Shiv TOLL LINE INSPECTOR Unavailable Unavailable Floridalma, N Shiv TOLL LINE INSPECTOR Unavailable Unavailable [place], N Shiv TOLL LINE INSPECTOR Unavailable Unavailable Floridalma, N Shiv TOLL LINE INSPECTOR Unavailable Unavailable [place], N Shiv TOLL LINE INSPECTOR Unavailable Unavailable [place], N Shiv TOLL LINE INSPECTOR Unavailable Unavailable [place]ma, N Shiv TOLL LINE INSPECTOR Unavailable Unavailable [place], N Shiv TOLL LINE INSPECTOR Unavailable Unavailable [place]ma, N Shiv TOLL LINE INSPECTOR Unavailable Unavailable [place], N Shiv TOLL LINE INSPECTOR Unavailable Unavailable Flor[place]ma, N Sihv TOLL LINE INSPECTOR Unavailable Unavailable [place], N Shiv TOLL LINE INSPECTOR Unavailable Unavailable Floridalma, N Shiv TOLL LINE INSPECTOR Unavailable Unavailable [place], N Shiv TOLL LINE INSPECTOR Unavailable Unavailable Shari Pickard MD Unavailable Unavailable [...] is protected by Article 27-F of the [facility] Public Health law. If you continue you may have access to information: Regarding HIV / AIDS; Provided by facilities licensed or operated by the [facility] Office of Mental Health; or Provided by the [facility] Office for People With Developmental Disabilities. If such information is present, then the following [facility] mandated warning applies: This information has been [...] law may result in a fine or alf sentence or both. A general authorization for the release of medical or other information is NOT sufficient authorization for further disc losure. Allergies and Adverse Reactions Type Description Substance Reaction Status Data Source(s ) Propensity to adverse reactions NO KNOWN ALLERGIES NO KNOWN ALLERGIES [facility] Encounters Encounter Providers Location Date Indications Data Source(s ) Outpatient Attender: HARSH Collins/Yumiko/Herman/Kat hung 03/03/2021 10:45:00 AM EDT [facility] ([facility] Layton Olguin MD: [address] [place] [phone], Ph. Attender: Layton Olguin MD [facility] Medical 12/14/2020 12:00:00 AM EDT [facility] ([facility]) Outpatient Attender: SAE SANCHEZ MD 12/04/2020 12:00:00 AM EDT [facility] Outpatient Attender: SAE SANCHEZ MD [id number] 11/18 12:00:00 AM EST - 11/18/2020 10:20:45 AM EST [facility] Inpatient Attender: SAE SANCHEZ MDAdmitter: SAE Russell MD [id number] 11/12/2020 12:00:00 AM EST - 11/13/2020 04:30:00 PM EST Infection and inflammatory reaction due to other internal orthopedic prosthetic devices, implants and grafts, [facility] 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 Outpatient Attender: JENNIFER SALESReferrer: SAE SANCHEZ MD [id number] 11/09/2020 12:00:00 AM [facility] Outpatient Attender: Maura KWOK-CReferrer: SAE WANG MD 11/09/2020 12:00:00 AM [facility] pretest Layton Olguin MD: [address] [place] [phone], Ph. Attender: Layton Olguin MD [facility] Medical 11/06/2020 12:00:00 AM EST [facility] ([facility]) Layton Olguin MD: [address] [place] [phone], Ph. Attender: Layton Olguin MD [facility] Medical 11/06/2020 12:00:00 AM EST [facility] ([facility]) Layton Olguin MD: [address] [place] [phone], Ph. Attender: Layton Olguin MD [facility] Medical 09/28/2020 12:00:00 AM EST [facility] ([facility]) Layton Olguin MD: [address] [place] [phone], Ph. Attender: Layton Olguin MD [facility] Medical 09/28/2020 12:00:00 AM EST [facility] ([facility]) Layton Olguin MD: [address] [place] [phone], Ph. Attender: Layton Olguin MD [facility] Medical 09/28/2020 12:00:00 AM EST [facility] ([facility]) Outpatient Attender: Shiv Hedrick NP [email or web address] 12:00:00 AM [facility] 09/22/2020 03:37:[address] [facility] Outpatient 08/27/2020 12:00:00 AM [facility] Outpatient Attender: Vivi Pickard MD 08/27/2020 12:00:00 AM [facility] Outpatient Attender: HARSH HART-Pearl Karina/Franklin/Herman/R eindl 06/09/2020 02:15:00 PM EDT [facility] ([facility]) Outpatient Attender: HARSH MELGAR Karina/Franklin/Herman/R eindl 06/04/2020 01:15:00 PM EDT [facility] ([facility]) Outpatient Attender: Layton Olguin MD 06/02/2020 02:19:01 PM EDT [facility] Outpatient Attender: Layton Olguin MD 06/02/2020 02:19:01 PM EDT [facility] Outpatient Attender: Layton Olguin MD 06/02/2020 02:19:01 PM EDT [facility] Outpatient Attender: Layton Olguin MD 06/02/2020 02:19:01 PM EDT [facility] Inpatient Attender: SAE SANCHEZ MDAdmitter: SAE Russell MD 05/11/2020 10:54:25 AM EDT Z96.9 RETAINED HARDWARE MANDIBLE [facility] spital Z96.9 RETAINED HARDWARE MANDIBLE Outpatient Referrer: SAE SANCHEZ MD [id number] 05/11 12:00:00 AM EDT - [facility]12[facility] Maura Rico PA-CReferrer: SAE WANG MD [id number] 05/11/2020 12:00:00 AM EDT [facility] pretest Immunizations Vaccine Date Status Description Data Source(s) COVID-19 VACC,MRNA(MODERNA)/PF 01/25/2021 12:00:00 AM EDT completed [facility] COVID-19 VACCINE Moderna 01/25/2021 12:00:00 AM EDT completed [facility] Vaccine Series Complete: NOThis Data was Submitted to [facility] Via [employer]. New in 2011. IIV4 07/17/2020 06:47:00 AM EST completed [facility] ([facility], ) Medications Medication Brand Name Start [...] 1 TABLET BY MOUTH DAILY SOLD: 02/10/2021 [facility] 325 mg (65 mg iron) [...] 1 TABLET BY MOUTH DAILY SOLD: 02/12/2021 [facility] pantoprazole 40 MG Delayed Release Oral Tablet PANTOPRAZOLE SODIUM 01/07/2021 12:00:00 AM EDT tablet,delayed release (DR/EC) 30 T LILLY 1 TABLET BY MOUTH DAILY TAKE 1 TABLET BY MOUTH DAILY SOLD: 03/15/2021 [facility] pantoprazole 40 MG Delayed Release Oral Tablet [...] 3 days, Max Daily Dose: 4 tablets [facility] Mupirocin 0.02 MG/MG Topical Ointment mupirocin (BACTR OBAN) 2 % ointment mupirocin (BACTROBAN) 2 % ointment 11/13/2020 05:00:00 PM EST Topical active Topical, Three Time s Daily Standard, First dose on Mon11/13/20 at 1700, For 10 days
Apply to chin incision
[facility] Medication administered onsite Zinc Sulfate 220 MG Oral Capsule zinc sulfate (ZINCATE ) capsule 220 mg zinc sulfate (ZINCATE) capsule 220 mg 11/13/2020 09:00:00 AM EST 220 mg Oral active 220 mg, Oral, Every morning, First dose on Mon11/13/20 at 0900, For 7 doses
220 mg zinc sulfate- 50 mg elemental zinc
[facility] Medication administered onsite Digoxin 0.125 MG Oral Tablet digoxin (LANOXIN) tablet 125 mcg digoxin (LANOXIN) tablet 125 mcg 11/13/2020 09:00:00 AM EST 125 ug Oral act kiah 125 mcg, Oral, Every morning, First dose on Mon11/13/20 at 0900, For 30 days
Check vital signs before administering
[facility] Medication administered onsite pantoprazole 40 MG Delayed Release Oral Tablet pantoprazole (PROTONIX) EC tablet 40 mg pantoprazole (PROTONIX) EC tablet 40 mg 11/13/2020 09:00:[address] 40 mg Oral active 40 mg, Ora l, Every morning, First dose on Mon11/13/20 at 0900, For 30 days
Do not crush or chew
[facility] Medication administered onsite Cholecalciferol 1000 UNT Oral Tablet vit weaver D3 (CHOLECALCIFEROL) tablet 1,000 Units vitamin D3 (CHOLECALCIFEROL) tablet 1,000 Units 2020 09:00:00 AM EST 1000 U Oral active 1,000 Un its, Oral, Every morning, First dose on Mon11/13/20 at 0900, For 7 doses
25 mcg vitamin D3 = 1,000 international units vitamin D3.
[facility] Medication administered onsite Acetaminophen 325 MG Oral Tablet Acetaminophen 325 MG Oral Tablet (Tylenol) Acetaminophen 325 MG Oral Tablet (Tylenol) 11/13/2020 12:00:00 AM EST 650 mg Oral active Take 2 tablets by mouth every 6 (six) hours as needed for Pain for up to 10 days [facility] Oxycodone Hydrochloride 5 MG Oral Tablet oxyCODONE HCl 5 MG Oral Tablet (ROXICODONE) oxyCODONE HCl 5 MG Oral Tablet (ROXICODONE) 11/13/2020 12:00:00 AM EST 5 mg Oral completed Take 1 tablet by mouth every 4 (four) hours as needed for Pain for up to 5 days, Max Daily Dose: 30 mg [facility] Docusate Sodium 100 MG Oral Capsule docusate sodium (C OLACE) capsule 100 mg docusate sodium (COLACE) capsule 100 mg 11/12/2020 09:00:00 PM EST 100 mg Oral active 100 mg, Oral, 2 Times Daily, First dose on Mon11/12/20 at 2100, For 30 days [facility] Medication administered onsite Oxycodone Hydrochloride 5 MG [...] only) require Pain Service consultation and approval.
[facility] Medication administered onsite Mupirocin 0.02 MG/MG Topical Ointment mupirocin (BACTR OBAN) 2 % ointment mupirocin (BACTROBAN) 2 % ointment 11/12/2020 05:00:00 PM EST Topical active Topical, Three Time s Daily Standard, First dose on Kathie 11/12/20 at 1700, For 30 days
Apply to neck incision
[facility] Medication administered onsite ampicillin-sulbactam in NaCl 0.9 % 50 mL infusion 1.5 g 11/12/2020 04:00:00 PM EST 1.5 g Intravenous active 1.5 g, Intravenous, Every 6 hours, First dose on Kathie 11/12/20 at 1600, For 3 days
Dose based on mg of Unasyn. Each 150 mg of Unasyn contains 100 mg ampicillin.
Discouraged Uses: Empiric treatment of intra-abdominal infection
[facility] Medication administered onsite Acetaminophen 325 MG Oral [...] mg from all sources in 24 hours.
[facility] Medication administered onsite Oxycodone Hydrochloride 5 MG [...] only) require Pain Service consultation and approval.
[facility] Medication administered onsite fentaNYL (SUBLIMAZE) (PF) injection 25 mcg 7589-9803-51 11/12/2020 01:23:48 PM EST 25 ug Intravenous aborted 25 m cg, Intravenous, Every 5 min PRN, Severe Pain (Pain Scale Score 7-10), Starting Kathie 11/12/20 at 1323, For 10 doses, [facility] Medication administered onsite 1,250 mcg (50,000 unit) [...] tablet (125 mcg total) by mouth daily [facility] doxycycline hyclate 100 MG Oral Capsule doxycycline (V IBRAMYCIN) 100 MG capsule doxycycline (VIBRAMYCIN) 100 MG capsule 09/14/2020 12:00:00 AM EST 100 mg Oral active Take 100 mg by mouth 2 (two) times a day [facility] Cefuroxime 500 MG Oral Tablet cefuroxime (CEFTIN) 500 MG tablet cefuroxime (CEFTIN) 500 MG tablet 09/14/2020 12:00:00 AM EST 500 mg Oral active Take 500 mg by mouth 2 (two) times a day [facility] doxycycline hyclate 100 MG Oral Capsule [...] CAPSULE VIA HANDIHALER BY MOUTH EVERY DAY [facility] 18 mcg 08/12/2020 12:00:00 AM EST capsule, w/inhalation d evice 90 INHALE THE CONTENTS OF ONE CAPSULE VIA HANDIHALER BY MOUTH EVERY DAY INHALE THE CONTENTS OF ONE CAPSULE VIA HANDIHALER BY MOUTH EVERY DAY SOLD: 08/16/2020 Justo Hernández tiotropium 0.018 MG/ACTUAT Inhalant Powder [Spiriva] Spiriva Handihaler 08/11/2020 12:00:00 AM EST active [facility] ([facility], ) 90 mcg/actuation 06/10/2020 12:00:00 AM [...] 06/09/2020 12:00:00 AM EDT RESPIRATORY active [facility] ([facility], ) Spiriva Respimat Spiriva Respimat 06/09/2020 12:00:00 AM EDT ORAL active [facility] ([facility], ) pantoprazole 40 MG Delayed Release Oral [...] EDT aborted 3 (three) times a day [facility] Thiamine 100 MG Oral Tablet thiamine 100 MG tablet thiamine 100 MG tablet 05/15/2019 12:00:00 AM EDT aborted daily [facility] Digoxin 0.125 MG Oral Tablet digoxin (LANOXIN) 125 MCG tablet digoxin (LANOXIN) 125 MCG tablet 01/09/2018 12:00:00 AM EDT aborted daily [facility] Metoclopramide 10 MG Oral Tablet metoclopramide (JOANN N) 10 MG tablet metoclopramide (REGLAN) 10 MG tablet 01/01/2018 12:00:00 AM EDT aborted daily [facility] OxyCODONE HCl ER (OXYCONTIN) 20 MG T12A 12 hr tablet [id number] 11/23/2015 12:00:00 AM EDT aborted [facility] Oxycodone Hydrochloride 1 MG/ML Oral Andra ution oxycodone (ROXICODONE) 5 MG/5ML solution oxycodone (ROXICODONE) 5 MG/5ML solution 01/22/2015 12:00:00 AM EDT aborted Take 15mL to 30mL by mouth or by g-tube every four to six hours as needed for pain (15mL for moderate pain, 30mL for severe pain) [facility] rivaroxaban 20 MG Oral Tablet Rivaroxaban (XARELTO) 20 MG TABS Rivaroxaban (XARELTO) 20 MG TABS 01/22/2015 12:00:00 AM EDT 20 mg Oral aborted Take 1 tablet by mouth daily. [facility] Resource Instant Protein POWD [id number] 01/22/2015 12:00:00 AM E DT 1 {packet} Oral aborted Take 1 packet by mouth daily. [facility] Morphine Sulfate 30 MG Oral Tablet morphine (MSIR) 30 MG tablet morphine (MSIR) 30 MG tablet 01/06/2015 12:00:00 AM EDT aborted as needed [facility] Morphine Sulfate 30 MG Oral Tablet morphine (MSIR) 30 MG tablet morphine (MSIR) 30 MG tablet 12/04/2014 12:00:00 AM EDT 30 mg Oral abort ed Take 30 mg by mouth Two Times Daily [facility] Oxycodone Hydrochloride 20 MG Oral Tablet Oxycodone HC l 20 MG TABS Oxycodone HCl 20 MG TABS 07/15/2014 12:00:00 AM EST aborted as needed [facility] Metoprolol Tartrate 25 MG Oral Tablet me toprolol tartrate (LOPRESSOR) 25 MG tablet metoprolol tartrate (LOPRESSOR) 25 MG tablet 01/21/2014 12:0 0:00 AM EDT aborted daily [facility] Potassium 99 MG TABS [id number] 01/10/2014 12:00:00 AM EDT 1 {t bl} Oral aborted Take 1 tablet by mouth 2 (two) t imes a day [facility] Magnesium Oxide 400 MG Oral Tablet magnesium oxide (MA G-OX) 400 MG tablet magnesium oxide (MAG-OX) 400 MG tablet 03/09/2012 12:00:00 AM EDT aborted 2 (two) times a day [facility] rivaroxaban 15 MG Oral Tablet rivaroxaban (XARELTO) 15 MG TABS rivaroxaban (XARELTO) 15 MG TABS 03/09/2012 12:00:00 AM EDT ab orted daily [facility] Loratadine 10 MG Oral Tablet loratadine 10 mg tablet loratadine 10 mg tablet completed loratadine 10 MG Oral Tablet [facility]) gabapentin 100 MG Oral Capsule gabapentin 100 mg capsu le gabapentin 100 mg capsule completed gabapentin 100 MG Oral Capsule [facility] ([facility]) 12 HR Oxycodone Hydrochloride 20 MG Exte nded Release Oral Tablet [Oxycontin] OxyContin 20 mg tablet,crush resistant,extended release OxyContin 20 mg tablet,crush resistant,extended release completed Abuse- Deterrent 12 HR oxycodone hydrochloride 20 MG Extended Release Oral Tablet [Oxycontin] [facility] ([facility]) Ketoconazole 20 MG/ML Topical Cream ketoconazole 2 % t opical cream ketoconazole 2 % topical cream completed keto conazole 20 MG/ML Topical Cream [facility] ([facility]) Metoclopramide 10 MG Oral Tablet metoclopramide 10 mg tablet metoclopramide 10 mg tablet completed metocloprami de 10 MG Oral Tablet [facility] ([facility]) Metoclopramide 10 MG Oral Tablet metoclopramide 10 mg tablet metoclopramide 10 mg tablet completed metocloprami de 10 MG Oral Tablet [facility]) pantoprazole 40 MG Delayed Release Oral Tablet Pantoprazole Sodium 40 MG Oral Tablet Delayed Release (PROTONIX) Pantoprazole Sodium 40 MG Oral Tablet De layed Release (PROTONIX) 40 mg Oral aborted Take 40 mg by mouth every morning [facility] Morphine Sulfate 30 MG Extended Release Oral Tablet morphine ER 30 mg tablet,extended release morphine ER 30 mg tablet,extended release completed morphine sulfate 30 MG Extended Release Oral Tablet [facility] ([facility]) Metoclopramide 10 MG Oral Tablet metoclopramide (JOANN N) 10 MG tablet metoclopramide (REGLAN) 10 MG tablet 10 mg Oral a borted Take 10 mg by mouth Three times daily [facility] gabapentin 100 MG Oral Capsule gabapentin 100 mg capsu le gabapentin 100 mg capsule completed gabapentin 100 MG Oral Capsule [facility] ([facility]) Morphine Sulfate 30 MG Extended Release Oral Tablet morphine ER 30 mg tablet,extended release morphine ER 30 mg tablet,extended release completed morphine sulfate 30 MG Extended Release Oral Tablet [facility] ([facility]) Morphine Sulfate 30 MG Extended Release Oral Tablet morphine ER 30 mg tablet,extended release morphine ER 30 mg tablet,extended release completed morphine sulfate 30 MG Extended Release Oral Tablet [facility] ([facility]) Guaifenesin 20 MG/ML Oral Solution [Robafen] Robafen 1 00 mg/5 mL oral liquid Robafen 100 mg/5 mL oral liquid comple dottie guaifenesin 20 MG/ML Oral Solution [Robafen] [facility] ([facility]) Amoxicillin 875 MG / Clavulanate 125 MG Oral Tablet amoxicillin 875 mg-potassium clavulanate 125 mg tablet amoxicillin 875 mg-potassium clavulanate 125 mg tablet completed amoxici llin 875 MG / clavulanate 125 MG Oral Tablet [facility] ([facility]) Mupirocin 0.02 MG/MG Topical Ointment mupirocin 2 % to pical ointment mupirocin 2 % topical ointment completed mupirocin 0.02 MG/MG Topical Ointment [facility] ([facility]) gabapentin 50 MG/ML Oral Solution gabapentin (NEURONTI N) 250 MG/5ML solution gabapentin (NEURONTIN) 250 MG/5ML solution 250 mg Oral aborted Take 250 mg by mouth Three times daily. [facility] Esomeprazole 40 MG Delayed Release Oral Capsule esomeprazole (NEXIUM) 40 MG capsule esomeprazole (NEXIUM) 40 MG capsule 40 mg Oral aborted Take 40 mg by mouth daily [facility] Loratadine 10 MG Oral Tablet loratadine 10 mg tablet loratadine 10 mg tablet completed loratadine 10 MG Oral Tablet [facility] ([facility]) Guaifenesin 20 MG/ML Oral Solution [Robafen] Robafen 1 00 mg/5 mL oral liquid Robafen 100 mg/5 mL oral liquid comple dottie guaifenesin 20 MG/ML Oral Solution [Robafen] [facility] ([facility]) Loratadine 10 MG Oral Tablet loratadine 10 mg tablet loratadine 10 mg tablet completed loratadine 10 MG Oral Tablet [facility] ([facility]) Guaifenesin 20 MG/ML Oral Solution [Robafen] Robafen 1 00 mg/5 mL oral liquid Robafen 100 mg/5 mL oral liquid comple dottie guaifenesin 20 MG/ML Oral Solution [Robafen] [facility] ([facility]) Mupirocin 0.02 MG/MG Topical Ointment mupirocin 2 % to pical ointment mupirocin 2 % topical ointment completed mupirocin 0.02 MG/MG Topical Ointment [facility] ([facility]) gabapentin 100 MG Oral Capsule gabapentin 100 mg capsu le gabapentin 100 mg capsule completed gabapentin 100 MG Oral Capsule [facility] ([facility]) Metoclopramide 10 MG Oral Tablet metoclopramide 10 mg tablet metoclopramide 10 mg tablet completed metocloprami de 10 MG Oral Tablet [facility] ([facility]) Mupirocin 0.02 MG/MG Topical Ointment mupirocin 2 % to pical ointment mupirocin 2 % topical ointment completed mupirocin 0.02 MG/MG Topical Ointment [facility] ([facility]) Amoxicillin 875 MG / Clavulanate 125 MG Oral Tablet amoxicillin 875 mg-potassium clavulanate 125 mg tablet amoxicillin 875 mg-potassium clavulanate 125 mg tablet completed amoxici llin 875 MG / clavulanate 125 MG Oral Tablet [facility] ([facility]) Ketoconazole 20 MG/ML Topical Cream ketoconazole 2 % t opical cream ketoconazole 2 % topical cream completed keto conazole 20 MG/ML Topical Cream [facility] ([facility]) 12 HR Oxycodone Hydrochloride 20 MG Exte nded Release Oral Tablet [Oxycontin] OxyContin 20 mg tablet,crush resistant,extended release OxyContin 20 mg tablet,crush resistant,extended release completed Abuse- Deterrent 12 HR oxycodone hydrochloride 20 MG Extended Release Oral Tablet [Oxycontin] [facility] ([facility]) Ketoconazole 20 MG/ML Topical Cream ketoconazole 2 % t opical cream ketoconazole 2 % topical cream completed keto conazole 20 MG/ML Topical Cream [facility] ([facility]) Amoxicillin 875 MG / Clavulanate 125 MG Oral Tablet amoxicillin 875 mg-potassium clavulanate 125 mg tablet amoxicillin 875 mg-potassium clavulanate 125 mg tablet completed amoxici llin 875 MG / clavulanate 125 MG Oral Tablet [facility] ([facility]) Esomeprazole 40 MG Delayed Release Oral Capsule esomeprazole (NEXIUM) 40 MG capsule esomeprazole (NEXIUM) 40 MG capsule 40 mg Oral aborted Symptomatic Gastroesophageal Reflux Disease Take 40 mg by mouth every morning before breakfast. Indications: Gastroesophageal Reflux Disease with Current [facility] Symptomatic Gastroesophageal Reflux Dise ase 12 HR Oxycodone Hydrochloride 20 MG Exte nded Release Oral Tablet [Oxycontin] OxyContin 20 mg tablet,crush resistant,extended release OxyContin 20 mg tablet,crush resistant,extended release completed Abuse- Deterrent 12 HR oxycodone hydrochloride 20 MG Extended Release Oral Tablet [Oxycontin] [facility] ([facility]) Insurance Providers Payer name Policy type / Coverage type Policy ID Covered libertarian ID Covered libertarian's relationship to nunez Policy Nunez Plan Information POMCO [id number] WI2 [id number] POMCO U [id number] Spouse [id number] POMCO P [id number] S [id number] POMCO U [id number] Spouse [id number] UMR U [id number] Spouse [id number] UMR [id number] Spo [id number] UMR P [id number] S [id number] UMR P [id number] S [id number] [facility] [id number] WI2 [id number] UMR P [id number] S [id number] UMR P [id number] S [id number] UMR P [id number] S [id number] UMR P [id number] S [id number] UMR -O/P [id number] 01 [id number] UMR -O [id number] 01 [id number] Self Pay P UNAVAILABLE S UNAVAILA BLE POMCO PPO O [id number] P [id number] UMR O [id number] S [id number] POMCO O [id number] S [id number] Problems, Conditions, and Diagnoses Code Display Name Description Problem Type Effective Dates Data Source(s) T84.7XXS 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, implants and grafts, sequela Infection and inflammatory reaction due to other internal orthopedic prosthetic devices, implants and grafts, sequela Diagnosis 11/12/2020 10:24:00 AM [facility] Z96.9 RETAINED HARDWARE MANDIBLE Z96.9 RETAINED HARDWA RE MANDIBLE Diagnosis 11/12/2020 10:24:00 AM [facility] pretest pretest Diagnosis 11/09/2020 09:58:18 AM [facility] I48.91 Unspecified atrial fibrillation Unspecified atri al fibrillation Diagnosis 09/22/2020 02:49:[address] [facility] I42.0 Dilated cardiomyopathy Dilated cardiomyopathy Diagnosi s 09/22/2020 02:49:01 PM [facility] [id number] Iron deficiency anemia Iron Deficiency Anemia Problem 11/06/2020 12:00:00 AM EST [facility] er) [id number] Vitamin deficiency Vitamin Deficiency Problem 12:00:00 AM EST CE ([facility]) [id number] Iron deficiency anemia Iron Deficiency Anemia Problem 11/06/2020 12:00:00 AM EST CE ([facility]) [id number] Vitamin deficiency Vitamin Deficiency Problem 12:00:00 AM EST CE ([facility]) [id number] Atrial fibrillation Atrial Fibrillation Problem 0 09/28/2020 12:00:00 AM EST CE ([facility] er) [id number] Atrial fibrillation Atrial Fibrillation Problem 0 09/28/2020 12:00:00 AM EST CE ([facility] er) [id number] Atrial fibrillation Atrial Fibrillation Problem 0 09/28/2020 12:00:00 AM EST CE ([facility] er) Z23 Active or passive immunization Active or passive immun ization Problem 07/17/2020 12:00:00 AM JENNIFER MUÑOZ ([facility], ) Surgeries/Procedures Procedure Description Date Indications Data Source(s) Spirometry 03/03/2021 12:00:00 AM EDT Drew HARDWICK ([facility], ) OFFICE OUTPATIENT VISIT 25 MINUTES 03/03/2021 12:00:00 AM EDKatherine MUÑZO ([facility], ) COVID-19 PCR <td>COVID-19 PCR</td><td>Rou ilda</td><td>11/12/2020 5:57 PM EST</td><td></td><td> </td> 11/12/2020 05:57:00 PM [facility] RADIOLOGIC EXAMINATION MANDIPLE PRTL < 4 VIEWS <td>XR MANDIBLE LESS THAN 4 VIEWS [id number]</td><td>STAT</td><td>11/12/2020 12:22 PM EST</td><td></td><td> </td> 11/12/2020 12:22:52 PM [facility] REMOVAL, IMPLANT DEEP <td>REMOVAL, IMPLANT DEEP</t d><td></td><td>11/12/2020 11:17 AM EST</td><td> Z96.9 RETAINED HARDWARE MANDIBLE</td><td></td> 11/12/2020 11:17:00 AM EST - 11/12/2020 02:15:00 PM [facility] PULMONARY FUNCTION TEST REPORT <td>PULMONARY FUNCTION TEST REPORT</td><td></td><td>11/10/2020 8:34 AM EST</td><td></td><td></td> 11/10/2020 08:34:16 AM EST [facility] PULMONARY FUNCTION TEST REPORT <td>PULMONARY FUNCTION TEST REPORT</td><td></td><td>11/10/2020 8:33 AM EST</td><td></td><td></td> 11/10/2020 08:33:29 AM EST [facility] CARDIAC REPORT <td>CARDIAC REPORT</td><td>< /td><td>11/09/2020 9:19 AM EST</td><td></td><td></td> 11/09/2020 09:19:14 AM EST [facility] CARDIAC REPORT <td>CARDIAC REPORT</td><td>< /td><td>11/09/2020 9:18 AM EST</td><td></td><td></td> 11/09/2020 09:18:27 AM [facility] LAB RESULTS (OUTSIDE/HISTORICAL) <td>LAB RESULTS (OUTSIDE/HISTORICAL)</td><td></td><td>11/06/2020 2:55 PM EST</td><td></td><td></td> 11/06/2020 02:55:57 PM EST [facility] Bronchospasm Evaluation 06/09/2020 12:00:00 AM EDT [facility] ([facility], ) Maximum Breathing Capacity, Maximal Voluntary Ventilation 06/09/2020 12:00:00 AM EDT [facility] ([facility] Plethysmography Determination Lung Volumes & Per Airway Resi st 06/09/2020 12:00:00 AM EDT [facility] ([facility] DIFFUSING CAPACITY 06/09/2020 12:00:00 AM EDT [facility] ([facility], ) BLOOD COUNT COMPLETE AUTOMATED <td>CBC</td><td>Routine </td><td>05/11/2020 12:14 PM EDT</td><td> Preoperative testing</td><td> </td> 05/11/2020 12:14:00 PM EDT Preoperative testing [facility] Preoperative testing BASIC METABOLIC PANEL CALCIUM TOTAL <td>BASIC METABOLI C PANEL</td><td>Routine</td><td>05/11/2020 12:14 PM EDT</td><td> Preoperative testing</td><td> </td> 05/11/2020 12:14:00 PM EDT Preoperative testing [facility] Preoperative testing EKG 12-LEAD - CMAXX REPORT <td>EKG 12-LEAD - CMAXX REPORT</td><td></td><td>05/11/2020 11:23 AM EDT</td><td></td><td></td> 05/11/2020 11:23:16 AM EDT [facility] EKG 12-LEAD - CMAXX REPORT <td>EKG 12-LEAD - CMAXX REPORT</td><td></td><td>05/11/2020 11:23 AM EDT</td><td></td><td></td> 05/11/2020 11:23:16 AM EDT [facility] EKG 12-LEAD <td>EKG 12-LEAD</td><td>Rout ine</td><td>05/11/2020 11:23 AM EDT</td><td></td><td></td> 05/11/2020 11:23:16 AM EDT [facility] EKG 12-LEAD <td>EKG 12-LEAD</td><td>Rout ine</td><td>05/11/2020 11:23 AM EDT</td><td> Preoperative testing</td><td> </td> 05/11/2020 11:23:16 AM EDT Preoperative testing [facility] Preoperative testing Results ID Date Data Source [id number] 03/03/2021 10:30:00 AM EDT [facility] ([facility], ) Name Value Range Interpretation Code Description Data Natali rce(s) Supporting Document(s) PDFReport Laboratory test result [facility] ([facility], ) FVC-Pred 4.83 L [facility] ([facility], ) FVC-Pre 3.49 L [facility] ([facility], ) FVC-LLN 3.90 L [facility] ([facility], ) FVC-%Pred-Pre 72 L [facility] ([facility], ) Fev1-%Pred-Pre 47 L [facility] ([facility], ) Fev1-Pre 1.75 L [facility] ([facility], ) Fev1-Pred 3.68 L [facility] ([facility], ) Fev6-Pred 4.62 L [facility] ([facility], ) Fev1-LLN 2.89 L [facility] ([facility]) Fev6-Pre 3.49 L [facility] ([facility]) Fev6-%Pred-Pre 75 L [facility] ([facility], ) Fnk8jwe-Mtre 76 % [facility] ([facility], ) Fev6-LLN 3.71 L [facility] ([facility]) Ivi4rzq-YWW 66 % [facility] ([facility]) Bix5jre-%Pred-Pre 66 % [facility] ([facility]) Vjg2pdd-Heo 50 % [facility] ([facility]) Szo1hqv-Wicx 96 % [facility] ([facility]) Wbv2bim-Cqb 100 % [facility] ([facility]) Fdz6tmq-%Pred-Pre 104 % [facility] ([facility]) FEFMax-Pre 2.42 L/E/sec [facility] ([facility], ) FEFMax-Pred 9.36 L/E/sec [facility] ([facility]) FEFMax-%Pred-Pre 25 L/E/sec [facility] ([facility]) FEFMax-LLN 7.04 L/E/sec [facility] ([facility]) Xwg4030-Rbb 1.00 L/E/sec [facility] ([facility], ) Zor6131-Ggyy 3.07 L/E/sec [facility] ([facility], ) Tjp8989-%Pred-Pre 32 L/E/sec [facility] ([facility]) Gfz8391-YTI 1.47 L/E/sec [facility] ([facility], ) ExpTime-Pre 6.15 sec [facility] ([facility], ) Rdn4mrz6-Utnv 79 % [facility] ([facility], ) Phd9wfd2-Wrn 50 % [facility] ([facility]) Dqc1bow9-%Pred-Pre 63 % [facility] ([facility]) Hzp0mvc5-NZV 70 % [facility] ([facility]) ID Date Data Source [id number] 01/01/2021 09:25:00 AM EDT [facility] FASTING: UNKNOWNReceived: 12/04/2020 at 05:32:00 QPT: [facility], [address] [facility], [address] [place] [address], [address], Maninder Pickens MD Name Value Range Interpretation Code Description Data Natali rce(s) Supporting Document(s) Fungus identified in Unspecified specimen by Fungus stain [facility] CULTURE, FUNGUS W/SMEAR NOT HAIR, SKIN , BLOOD Micro Number: [id number] Test Status: Final Specimen Source: SPUTUM Specimen Quality: Adequate Smear: No fungal elements seen. Result: No fungal growth at 4 WeeksNO COLLECTION DATE RECEIVED. WE HAVE USEDTHE DATE THE SPECIMEN [facility]. IF THISIS INCORRECT, PLEASE CONTACT CLIENT SERVICES.PHONE NUMBER: [phone] ID Date Data Source [id number] 12/01/2020 04:53:00 PM EDT [facility] Received: 12/01/2020 at 16:23:00 SYR : [facility], [address], [place], [address], Luis Alberto Espinoza MD,PHD,CAROLA Received: 12/01/2020 at 16:23:00 SYR : [facility], [address], [place], [address], Luis Alberto Espinoza MD,PHD,CAROLA Name Value Range [...] is approximately 13% higher for peopleidentified as -Maltese. Glomerular filtration rate/1.73 sq M.pre dicted [Volume [...] [facility] ID Date Data Source [id number] 12/01/2020 04:53:00 PM EDT [facility] Received: 12/01/2020 at 16:23:00 SYR : [facility], [address], [place], [address], Luis Alberto Espinoza MD,PHD,CAROLA Received: 12/01/2020 at 16:23:00 SYR : [facility], [address], [place], [address], Luis Alberto Espinoza MD,PHD,CAROLA Name Value Range [...] in Blood by Automated count 3136 cells/uL [id number] Normal (applies to non-numeric results) [facility] [...] results) [facility] ID Date Data Source [id number] 12/01/2020 12:00:00 AM EDT [facility] Name Value Range Interpretation Code Description Data Natali rce(s) Supporting Document(s) SARS coronavirus 2 RNA Negative [facility] This lab was ordered by [facility] and reported by [facility]. ID Date Data Source [id number] 11/27/2020 12:00:00 AM EDT [facility] Name Value Range Interpretation Code Description Data Natali rce(s) Supporting Document(s) SARS coronavirus 2 RNA Negative [facility] This lab was ordered by [facility] and reported by [facility]. ID Date Data Source [id number] 11/24/2020 12:00:00 AM EDT [facility] Name Value Range Interpretation Code Description Data Natali rce(s) Supporting Document(s) SARS coronavirus 2 RNA Negative [facility] This lab was ordered by [facility] and reported by [facility]. ID Date Data Source [id number] 11/20/2020 02:06:17 PM [facility] Name Value Range Interpretation Code Description Data Natali rce(s) Supporting Document(s) Progress Note [facility] UBDREx5iVxCOInYr75/GNDycTDYxw3KsUCgwTGj4IAcaCKOcW9AoDLD0eD6wAME3SPoOFoExJtKrAkQy [facility] [file] ICAgICAgICAgICAgICAgICAgICAgICAgICAgICAgICAgICAgICAgICAgICAgICAgICAgICAgDQogICAg ICAgICAgICAgICAgICAgICAgICAgICAgICAgICAgIC AgICAgICAgICAgICAgICAgICAgICAgICAgICAgICAgICAgICAgICAgICAgICAgICAgICAgICAgICAgIC AgICAgDQogICAgICAgICAgICAgICAgICAgICAgICAgICAgICAgICAgICAgICAgICAgICAgICAgICAgIC AgICAgICAgICAgICAgICAgICAgICAgICAgICAgICAg ICAgICAgICAgICAgICAgDQogICAgICAgICAgICAgICAgICAgICAgICAgICAgICAgICAgICAgICAgICAg ICAgICAgICAgICAgICAgICAgICAgICAgICAgICAgICAgICAgICAgICAgICAgICAgICAgICAgICAgDQog ICAgICAgICAgICAgICAgICAgICAgICAgICAgICAgIC AgICAgICAgICAgICAgICAgICAgICAgICAgICAgICAgICAgICAgICAgICAgICAgICAgICAgICAgICAgIC AgICAgICAgDQogICAgICAgICAgICAgICAgICAgICAgICAgICAgICAgICAgICAgICAgICAgICAgICAgIC AgICAgICAgICAgICAgICAgICAgICAgICAgICAgICAg ICAgICAgICAgICAgICAgICAgDQogICAgICAgICAgICAgICAgICAgICAgICAgICAgICAgICAgICAgICAg ICAgICAgICAgICAgICAgICAgICAgICAgICAgICAgICAgICAgICAgICAgICAgICAgICAgICAgICAgICAg DQogICAgICAgICAgICAgICAgICAgICAgICAgICAgIC AgICAgICAgICAgICAgICAgICAgICAgICAgICAgICAgICAgICAgICAgICAgICAgICAgICAgICAgICAgIC AgICAgICAgICAgDQogICAgICAgICAgICAgICAgICAgICAgICAgICAgICAgICAgICAgICAgICAgICAgIC AgICAgICAgICAgICAgICAgICAgICAgICAgICAgICAg ICAgICAgICAgICAgICAgICAgICAgDQogICAgICAgICAgICAgICAgICAgICAgICAgICAgICAgICAgICAg ICAgICAgICAgICAgICAgICAgICAgICAgICAgICAgICAgICAgICAgICAgICAgICAgICAgICAgICAgICAg ISHfWQp6F3gdSDIrBOZhHA2ePUv2Lg6+DQoNCmVuZH O7vyWsiN4SVL9hp6HqMVknWZLmp8RuWEy9KI1IUPMhXMuiLC6TTThorc5TKLNnNAJerTMLq7fqPxEuQQ G8TSYrTytnBJ9XHEHcK6kydpWfYXJaWBTIAVyfFDLOISakNAJWRGGsBMNwUoJgQhLtJNVjLU9SIKOmY4 92rrSiNV8NWz7ARmTwNW5jnm4JXaWyNSQkIozPEia2 NQwqDE3PdZLslLQpQTIvURRWAhWyY8gwf8EqHuPfFFZQODxsEQ2Fu6RecWPoVBc+Mu8OLX3wy9StQJqw MJMhZF4sqg3DFAiUMiUqT5AmcAmdEHZoi3soYUJzXA3jhBYbIAH8TNFjkHwiYABlDConbfzfICKlGOOg Ya2aBS7mLOUhLKZ0FkK0FPCPSR1MOKCdNMIgjFQdZV NmFBNQPZ1RKRbdFZY4SIPbscAxjWGzJXokHY6AHIWbjrDiHgXdCOFUBNh+Tc5HHF4ap8NlBSjdIYNzOS 9gue7HCIcLAeRsE0D5nZInL0N1XEhcOq2WCSBrDUMqViErLDEAXBxpQZ3ZGG1qqzM3NW4OjICfRXZoCO VsgDGqKBf7D81blJQpFQzmSJ4DEAG+Dee+La7UYTSo RQKfZXIpRdHyAXASGiYxV3OzO2ETm4KxG0GoVY24mUlhsjYqETxtRO5DFZ5sLPNhSCGXAZ0HxZZfmI4g emAmXjCmSNGHYdCyD38wxJSuNLLaDICpXLUkFe8UZFIzL4RodyHokIgrlkYoVVVfUQMOWC6VJHymevGx vOItpGyyWN08lAtiJI5HFl4FPeDpGQ9jrz7GmZMtSq 9WOWBjJl1JNGQmDODqUHJnWHE2OFFyDhEjBAhgMVUdLGDoMUG1ACMnAAFaLY0OJlVbZVDkAbR3ZVsrCF LlCHTkmc1BUOIrAMQeOCzpRCDlBDFwNHDdSPbgHBUfLGPuZGI6NVAaOCDqPE6LWcFbRVKjWVP6GHgfPN WrGYQhoy9FWBDjYWOeHmqrSASgSZQyUGTrLTjrIHIe OXE5BGV4YYElPQNrQX6UGsJvEDBlZGwkVlLaPBBkSFYyoj8BETNiQKSaWUz5HREpTTMjZSPkKJuhTFWk IYMvSMi2JOFyONYoGC6LBtOdGNTpQPW9OLGhTYVqRTFyim4FHIUqOYYjJcYvSRHhREJoEPImBEuqXLGr HDS2AYI7PXGiHGDhID2PSkJoALUxXWYpRuNnAUUnAK Cgjc1IYSWvXSLyQnYkMSQkAKVbKQYyZXcyMHMwDJD2NINpNMGdNHBkKV9ZUaEtIKWoOZZ3SEHrMLLgEC Mngm6SVQGwYFJcVqP4BBPyBKIpIDElOFzjOAWiRKF7FiZ6TWWtGCUeIZ0CIxMjNRDuZHy8FTMnDYTxUY Nvvo1YWXNoNOXnWZK6GSIvKLDhRIGpMIhkOBXiXTP0 YaT1XDWiSJNkYL2NVdBdBIXvSbs8CAkjGYLvSTAlwj7QBCEnCOIyQFL1GOZiXUWzQAQwZRizMAEvEEPm IzD8ZHXpWEWlFN6AViCgNIBlUtHcYVpjQFWhFZCzli9CKRYtFVXpUMF2BKNhUMOvVKWzELroHVCiKGNe AqT5FXIuTERuAD0CRqTkYRZyCzD4QfHgMLTgASYhjd 2PNEHeZSRdQuj5HFPzCMRlMTVqMCobUTQoVZEdETO8HEVqPFJaNL1REtKfQTJoXkWdEizoPOAfPQRgmj 4JMJNxNGDsRIqjLbDvBIDrBHTrFPhnYROpTFV3KKC6UGPpXHHsYE2WPcOiNVTiPwSzATFdTOEhBCTzeq 9SmHVcuXmttk6NCYgYAh0JgBkfXXK3KKnjVh5rpTHy FRVaTQDWFc2YrzDwJCLeLJVYETlpHGHcEXJiMEG4CIVlKKJvDeZ6ZOaePFSlWFWgWyKhB9QvWPQjGrZ9 P5UkJwS6MMP0StV8ZXk5CGS8AcOhUJDnBqHrM1MxFjF+PE2iJRt+Ty5Id8XdgaM3brYqNEuqENZ7TN1N DPTWZ0UGUb== ID Date Data Source [id number] 11/20/2020 12:00:00 AM EST [facility] Name Value Range Interpretation Code Description Data Natali rce(s) Supporting Document(s) SARS coronavirus 2 RNA Negative [facility] This lab was ordered by [facility] and reported by [facility]. ID Date Data Source [id number] 11/17/2020 12:00:00 AM EST [facility] Name Value Range Interpretation Code Description Data Natali rce(s) Supporting Document(s) SARS coronavirus 2 RNA Negative [facility] This lab was ordered by [facility] and reported by [facility]. ID Date Data Source [id number] 11/13/2020 02:03:08 PM EST [facility] Name Value Range Interpretation Code Description Data Natali rce(s) Supporting Document(s) Discharge Summary [facility] EOIIGd1kKgJGHyDy91/EGWdhJPClu3LpMLqcJLr7OMecCRUhJ6MaSMF9sD2rGLM2IGmYIeGwQlHbFgQ3 lbm InFyoLGmKuPXXeYemKPwBqTUrmYwgksYMdRL5TbME0JDWdS09tLCSmRVDdH2PcNHU9BTl+Hz8OELZieD XkWL4CHufL1Frrg+JI8vtK+t3yDntWcZvVC+2NiwqZYKzTi7Wzq2KoXdusQKtAh8wPqxg4e47kNkEDwA FI4msZPYS215M8eUkMVUOqm8InLVabtHtp+9VyNDZZ sV9/RdJ6UniRs8+lULLPfywMTLpKK1V38JRpoV8uWRuvO6XFDMdd6+KyvYAFYwsD4HVxPu6o24/rNXPZ +TY35QhNWv6prng3mGM/KQ9VZr3BGwIZrm1SGcNAyHXmT1GQ0pBWDGECwUcLXP1ZipNw6Wrl+[place]+d3RL [file] ICAgICAgICAgICAgICAgICAgICAgICAgICAgICAgICAgICAgICAgICAgICAgICAgICAgICAgICAgICAg ICAgICAgICAgICAgICAgICAgICAgICAgICAgICAgICAgDQogICAgICAgICAgICAgICAgICAgICAgICAg ICAgICAgICAgICAgICAgICAgICAgICAgICAgICAgIC AgICAgICAgICAgICAgICAgICAgICAgICAgICAgICAgICAgICAgICAgICAgDQogICAgICAgICAgICAgIC AgICAgICAgICAgICAgICAgICAgICAgICAgICAgICAgICAgICAgICAgICAgICAgICAgICAgICAgICAgIC AgICAgICAgICAgICAgICAgICAgICAgICAgDQogICAg ICAgICAgICAgICAgICAgICAgICAgICAgICAgICAgICAgICAgICAgICAgICAgICAgICAgICAgICAgICAg ICAgICAgICAgICAgICAgICAgICAgICAgICAgICAgICAgICAgDQogICAgICAgICAgICAgICAgICAgICAg ICAgICAgICAgICAgICAgICAgICAgICAgICAgICAgIC AgICAgICAgICAgICAgICAgICAgICAgICAgICAgICAgICAgICAgICAgICAgICAgDQogICAgICAgICAgIC AgICAgICAgICAgICAgICAgICAgICAgICAgICAgICAgICAgICAgICAgICAgICAgICAgICAgICAgICAgIC AgICAgICAgICAgICAgICAgICAgICAgICAgICAgDQog ICAgICAgICAgICAgICAgICAgICAgICAgICAgICAgICAgICAgICAgICAgICAgICAgICAgICAgICAgICAg ICAgICAgICAgICAgICAgICAgICAgICAgICAgICAgICAgICAgICAgDQogICAgICAgICAgICAgICAgICAg ICAgICAgICAgICAgICAgICAgICAgICAgICAgICAgIC AgICAgICAgICAgICAgICAgICAgICAgICAgICAgICAgICAgICAgICAgICAgICAgICAgDQogICAgICAgIC AgICAgICAgICAgICAgICAgICAgICAgICAgICAgICAgICAgICAgICAgICAgICAgICAgICAgICAgICAgIC AgICAgICAgICAgICAgICAgICAgICAgICAgICAgICAg DQogICAgICAgICAgICAgICAgICAgICAgICAgICAgICAgICAgICAgICAgICAgICAgICAgICAgICAgICAg OHGgBPRyMFSsVRNuITMtGGFnGFWqSWCbCHVmRWWqERNzFKJgHPQpURDkMNg9E2tzJHOcNJMcLY1yTYn2 Jz8+AItMAnYqGGB3pqYaaY7JCN0zz5JgKSovTKPfz5 LwVNv3ZU6TFPRiZRfgRA2SJWzqfo8EFQBzQAJsjCIOl9enMsSgPSV6TGJvUkjdSK1OFEFrZ1mtpjGvNA PrLJITFTguJFMTXEvdOROKSF3ZUqRuU4OhgC76PUXDSq5+KOuoaqPkSwsPMmKbCCKku8AtBEt2FV4UFF LoOtbqr0TqLiEgTEFWHNrmDM3XMZW3SFDfVNHgFb0A XFIwW279voHrED1JBu5WToWeFT1ior6UCeJlJQRhXxqAGsz3EEbjBP3JyNBoXMpUlPIzrQCaL3FlJ6Ba vIEmqZVxuFAKdMSxGCYwBVUsJVM2dN5tVX2TTXJ8UAYcDO0mKBPxJICbVcL7OMXMOA2FZTJyZMXquTJi RYZcXGTDZS9RUTgkWFD5VLNkkqFrhLIrHWueOP8NBE JlbnQgMjEgMCBSDQo+Oy3JPW7to1RbDIxpYlMlSW6ftf4TJXcHQaGzP1H2tSAlG0T1NClrGd5KPSYrAR WfSUvbOGZXJSxyGA7DJT5sgrZ7HP9QbAPxRCJzUGLavXEcEAh4F16ziNWmWZkrFG7VXGM+Dee+Pg0KIC AgUMUsTHSoHaDbIRYEOsYeE8ExS2WKi0AdO8UlGY83 fAbjqjGuHBxoLX2IIF7dEEZgPKUHPU5McHNnrT8dajDrCCIuMHRGEpAyY59twWBdXEUaMKVkTGLnSz8B XQBlE0EjpuUueSlmkeIbOYCeNTVMLP3SJNmeocKajYLrbZpgVR80tSotFJ5MKk2IBrBoEX2fwl8PkSMc Ol6LTGQgLC6HPXKiZOIoRSCyCCN1VSFiKrCvYBxhYH NfZDLrGST9ASXtPUZaQV5ASzOkMTZoLIB2RngkZATsXZQtdf0LUBJfCMZxSuN3WxOaJTPpBVMiUYezPB IkFLXeIIA6XATwBVNvCD6KWfKxJJMiHYI5TbsmTLByYRChbn4JNQYfMNKsWaMpDTEcYBUySTGiKZrtIC TxFRH1PUIfCRGoNJEsUR3JVlRrBAEkVIF5LFBpGLGz SNWlke4ZBQOwDSOrFsF8HtFtUXJvFQZqTBfeYXIoKSQ6YZUoNFNhAACsUQ5SLqVrKXVfMOw8TbRePWLt BSZrck4WVLKuXJLmKrHlLoVbNFTqONOwXQzoIDIsWHN6NSNiZTAgTTOyKC4SHcAlXDLsXPl1LNxhMOJt MJNmfm4SSTEkKWCxKQj0JQHjCMMjJFSvZFxwUJKfJE M6SDI8LHYiJIMyLZ7TBfGfCAAoKJDgAVddGVOqIZZdjn3DEYNwPMRjZXUdFeHjJIEcGAXrNZlaGIWaFL CwZMMlHXYdRJMwOG7SJaWgACYyTMG7OyKgIXYdIMMbkd2MXULnHKVyDrG8JaHaNZZrPMTrSYsrJYToTW VpHAP0DBAyZGGcAM9BQfPkUCBwHFM6QJayTPIqNSEf ie1YzVDoqLhwxz7WOWsTNp5PfQfkWIK0MKlaJj9ysBKjAiXrYXNKVr5CwpMvEWMpXZBPQBckAYYmZVEt BbZqG2JrICboNBGnTpF1MvPbYDKmEvHqVfVnVcjjTjC9QiRsM6Y9PfQlUOE2KWHyPfrjFWB4NCAbXMYr J0CgFNH+LY6lPYu+Kb6Ec8ZfmuA3diYbWGqjZpk4Cd3CFHYWM5POXl== ID Date Data Source [id number] 11/13/2020 10:28:26 AM [facility] Name Value Range Interpretation Code Description Data Natali rce(s) Supporting Document(s) Operative Note [facility] NNRLHd8gImIHSgGb23/BSCsnNICfw2LbJIodUCc1VEynLAGqO5BpMZA1gY9iXFD8FOePUdOqJmCtLyT2 lbm [file] OQ7NXz4GGaF2ACC9aXMzKp5RMWS9XDEEXbDgYV7XPAf= ID Date Data Source [id number] 11/12/2020 05:57:00 PM EST [facility] Name Value Range Interpretation Code Description Data Natali rce(s) Supporting Document(s) SARS-CoV-2 RNA 2019 nCoV Real-Time RT-PCR: NOT DETECTED [facility] This lab was ordered by [facility] and reported by [facility]. 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 [facility] Patient has symptoms related to [facility] When did you start to experience these symptoms [Date and time] [Phen X] [facility] Patient was hospitalized because of this condition [facility] patient was admitted to ICU for [facility] Patient resides in a congregate care setting [facility] status [facility] ID Date Data Source [id number] 11/12/2020 03:27:40 PM [facility] XR MANDIBLE LESS THAN 4 VIEWS [id number] RESULTInterpreted by:Kimi Marroquin MDINDICATION: Evaluate mandible hardware.TECHNIQUE: [...] rce(s) Supporting Document(s) ID Date Data Source [id number] 11/12/2020 10:57:30 AM [facility] Name Value Range Interpretation Code Description Data Natali rce(s) Supporting Document(s) History and Physical Good [facility] DPJGTv9sZrRNReFm62/YHWoaALWpj9HzMYhbMSu6FKdyUHYpY6UnZGN1nO3oVJP4KFqRZvQpJsPuVoD8 lbm [file] AgICAgICAgICAgICAgICAgICAgICAgICAgICAgICAgICAgICAgICAgICAgICAgICAgICAgICAgICAgIC AgICAgICAgICAgICAgICAgICANCiAgICAgICAgICAgICAgICAgICAgICAgICAgICAgICAgICAgICAgIC AgICAgICAgICAgICAgICAgICAgICAgICAgICAgICAg ICAgICAgICAgICAgICAgICAgICAgICAgICAgICANCiAgICAgICAgICAgICAgICAgICAgICAgICAgICAg ICAgICAgICAgICAgICAgICAgICAgICAgICAgICAgICAgICAgICAgICAgICAgICAgICAgICAgICAgICAg ICAgICAgICAgICANCiAgICAgICAgICAgICAgICAgIC AgICAgICAgICAgICAgICAgICAgICAgICAgICAgICAgICAgICAgICAgICAgICAgICAgICAgICAgICAgIC AgICAgICAgICAgICAgICAgICAgICANCiAgICAgICAgICAgICAgICAgICAgICAgICAgICAgICAgICAgIC AgICAgICAgICAgICAgICAgICAgICAgICAgICAgICAg ICAgICAgICAgICAgICAgICAgICAgICAgICAgICAgICANCiAgICAgICAgICAgICAgICAgICAgICAgICAg ICAgICAgICAgICAgICAgICAgICAgICAgICAgICAgICAgICAgICAgICAgICAgICAgICAgICAgICAgICAg ICAgICAgICAgICAgICANCiAgICAgICAgICAgICAgIC AgICAgICAgICAgICAgICAgICAgICAgICAgICAgICAgICAgICAgICAgICAgICAgICAgICAgICAgICAgIC AgICAgICAgICAgICAgICAgICAgICAgICANCiAgICAgICAgICAgICAgICAgICAgICAgICAgICAgICAgIC AgICAgICAgICAgICAgICAgICAgICAgICAgICAgICAg ICAgICAgICAgICAgICAgICAgICAgICAgICAgICAgICAgICANCiAgICAgICAgICAgICAgICAgICAgICAg ICAgICAgICAgICAgICAgICAgICAgICAgICAgICAgICAgICAgICAgICAgICAgICAgICAgICAgICAgICAg ICAgICAgICAgICAgICAgICANCiAgICAgICAgICAgIC AgICAgICAgICAgICAgICAgICAgICAgICAgICAgICAgICAgICAgICAgICAgICAgICAgICAgICAgICAgIC AgICAgICAgICAgICAgICAgICAgICAgICAgICANCjw/jLFwI7mipRHhslO3W7mhMn8JYx0VQC9mx8ZcLS VuGQltzfCuCkaYWzCoJNUaRsnYCuk1ONybVF1DcDWm C8YdJ7VfUKfpKN4XTHYpPAJroWIfZGRnDEEzRjE5TIVgMFcaYW5SkXPlXUwdKPPxDFZsAjAoUVMyBQOv EWQiFTLfJWJEKXNnMZCqZtIzFEarES2Qi1MpsCF7DFn+Jy4UKR7kq0XgIUbgBcGeXU8zkd0GNIdQSaXd R5NstnJ5SGS4OYUbCc3ZASKlRVZgqQRxEAFzFHHJNv OzU8SadC05ASAUMn1+RJrsquGrNodZKiU1YXLzm7KhCFj8UW8UOIAtBMk3xMEkJJAFRVE4MYwndtTamO VoISnzpOVvXI3sBFAWGqXMYYJ6IGUtSK9cZRKnULD7KiEkZWQVJR8AYCTaIZRkzSBtLPFgVCZGSU4JPY qhMIA9RINwpoKfyKXbZPodUY5JYDChrkTkDxPlUCCZ DQo+Zj2XVH7dz2VzJEsdVISzMD8gjv3XWBgYUpYaU5X4eWDuY7D3DEupTf8TNVZePSOsTmPcVMTWDVaq PS5YPN3cftH0ON1RuVIqNGKnAQFspIXfEPh7Z17raDZhQJljWM5PBMJ+Dee+Gh4XFNRiGRIiCCZbImFx ZVBVXpWwD5KhR5QQu7IvI6VvSI42oPbueeYvEIlmBJ 0GZZ7wZHMlLHLIPB5OuJNizB9twhRuIiSdBXKVHvOxY87shUIoZOAvZCUpRMIoKt8WWWEuP7XtdfJvrK thtaOwPLHwIGTZKP8NPMqczpMivEEaoGfsQN85rHnqBF0UVx9UWiSoUU9cux3NdIWdYx3YCDPbYv4RTJ PmGOItTMNqKYD1NTCeAlOsOUpoQECiOBNeAIH4ZKMm BKCuYX0MQtTiUHPmJbN7FyPbJNQuWFLrew6MQRHoSRKtKmPfLvAtKMGbEOHgWKkyVIRzFYFcPNV7AJQd ITNlBE5INvAbUPLuXKR5OjSuYIBrBWVzcl5OHPMjIUJdFdajOiXeHXChVSRbIKitYCOnTJX2FBhoNNUf JEMfIX9COqZcYBPjGPNnCCerYQHmMPZxki9TKRYnSW RrRZi6OLUwZAJpVMOuHFbhJNVaHPU9FHV9PGRrBSNtUO1PSsApZHTdIHUfLHCvLNJpHYLlhk4AFHDpKC HdZEM5DUJaMQIjLKSxRXuxATKtZRMfTUq1XJRsTJPqGQ7VMbRdMCXrEUMzAMUhGXIgRJApga4GTROoRV YiKRR0YNGnUKEtJLRjDIkbLTDgTIA6YjLuHQOjLZAr YS7DSmVpQTXvPOR2YEWgFAHsFYBhqq7IAUDyZHMxOzOcVbQdYCSnBSDqZRjgBPSoDLR7RfD2ROKgHOMq WX5ZLcBpLMCvSZL8HGDiFTRxUERzzh9EGRGkGQWpLhw6JgKfWBTuZLLxIBjcWVNzRUT1BZZuIKXdFJNv SF0SZkXlKATtZPecHfBwQGWpPUWhwu7UKQXvERKnCH TkDYZhNKUeYFTtELbgVQQwPOT5DKP8YXYkBQMnPV8WOsJeQQDrPmChESDrVYCuYWKuni1FHVJzVOArSD H7NCMzXOTzTQElZFuwGSWlBMMjJYPsAQDnEKDnKE2TPqXnXXKdZmJ9ZzLjHHNdKFSozn5DKINzOODlHA R3AmVbAVMaHTFwMGalFJUmTRWdMWYvZQHcXOHvTL7J IfEnEGVdPhTdZvIjRMAnIADxjn4WHGHpOUMqOnbpGzUoHFNyRCDrJNeiGELySPCcQMQ7MXZiWIZeRU3N GkWwVYKbOwV7JHSyZPNdNRYqlz8WaZPcgZmtxh1BYErYMa6WkOvdWEU3PWnhNd3azTXcJDGnAOONLh0M ujJoVXVsXMWFDXkyEIAlENSoW6CgFTYcWUUwQ0EqZZ XmDEXwUSF3RmCyC5F9LlKyNfU0WKQ6OdS8FlZ4AqHhOCQcObC1GCZcYkz1GNKoTrigEhP+TO8gIUo+Pg 5Mh7YkzmE3clErKQqdDCL8CP0IFGTMR4BKNt== ID Date Data Source [id number] 11/19/2020 06:09:00 AM [facility] Dermatopathology ConsultationName: FRANK WEIRMRN: [id number] Number: [id number] Date: 11/12/2020 00:00Received Date: 11/13/2020 10:15Physician(s): SAE SANCHEZ MD TATUM, SHERARD A,HOMARpecimen(s) ReceivedA: Chin wound, previous cancer patietnClinical HistoryRetained hardware mandible. DiagnosisSKIN CHIN, BIOPSY: - SCAR AND LICHEN SIMPLEX CHRONICUS, TRAUMATIZEDElectronically Signed By Jose Wolf M.D., Attending Pathologist11/19/2020 06:09:55 Unless 'gross-only' is specified, the final diagnosis is based on amicroscopic examination of inventory representative sections of tissue.Gross DescriptionThe specimen is [...] developed and their performance characteristics determined by [facility] Pathology department. They have not been cleared or approved by the USFood and Drug Administration. The FDA has determined that such clearanceor approval is not necessary. Name Value Range Interpretation Code Description Data Natali rce(s) Supporting Document(s) ID Date Data Source [id number] 11/09/2020 11:38:39 AM [facility] Name Value Range Interpretation Code Description Data [facility](s) Supporting Document(s) Progress Note [facility] [id number] [facility] [file] [id number] ID Date Data Source [id number] 11/09/2020 11:38:00 AM EST [facility] Name Value Range Interpretation Code Description Data Natali rce(s) Supporting Document(s) SARS-CoV-2 RNA 2019 nCoV Real-Time RT-PCR: NOT DETECTED [facility] This lab was ordered by [facility] and reported by [facility]. 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 [facility] Patient has symptoms related to [facility] When did you start to experience these symptoms [Date and time] [Phen X] [facility] Patient was hospitalized because of this [facility] patient was admitted to ICU for [facility] Patient resides in a congregate care setting [facility] status [facility] ID Date Data Source [id number] 09/28/2020 11:10:00 AM EST [facility]) Name Value Range Interpretation Code Description Data Natali rce(s) Supporting Document(s) total 25(oh) vitamin D 10.0 NG/mL 30.0-100.0 Below low normal T otal 25(Oh) Vitamin D [facility]) ID Date Data Source [id number] 09/28/2020 11:10:00 AM EST [facility]) Name Value Range Interpretation Code Description Data Natali rce(s) Supporting Document(s) iron (fe) 62 ug/dL 65-175 Below low normal Iron (Fe) [facility]) ID Date Data Source [id number] 09/28/2020 11:10:00 AM [facility] Name Value Range Interpretation Code Description Data Natali rce(s) Supporting Document(s) glucose, fasting 69 mg/dL 70-100 Below low normal Glucose, Fast ing [facility]) blood urea nitrogen 7 mg/dL 7-18 Blood Urea Nitro gen [place] ([facility]) creatinine for GFR 0.49 mg/dL 0.70-1.30 Below low normal Creatinine for GFR [facility] ([facility]) glomerular filtration rate > 60.0 >56 Glomerula r Filtration Rate [facility] ([facility]) sodium level 135 mEq/L 136-145 Below low normal Sodium Level ATHE NA ([facility]) potassium serum 5.1 mEq/L 3.5-5.1 Potassium Serum AT[facility] ([facility]) chloride level 102 mEq/L 98-107 Chloride Level CE ([facility]) carbon dioxide level 24 mEq/L 21-32 Carbon Dioxide Level [facility] ([facility]) calcium level 9.1 mg/dL 8.5-10.1 Calcium Level CE ( [facility]) anion gap 9 mEq/L 8-16 Anion Gap [facility] ([facility]) ALT/SGPT 55 U/L 12-78 ALT/SGPT CE ([facility]) AST/SGOT 36 U/L 7-37 AST/SGOT [facility] ([facility]) alkaline phosphatase 190 U/L 45-117 Above high normal Alkaline Phosphatase CE ([facility]) bilirubin,total 0.7 mg/dL 0.2-1.0 Bilirubin,total AT[facility] ([facility]) total protein 6.1 gm/dL 6.4-8.2 Below low normal Total Protein AT [place] ([facility]) albumin 3.0 gm/dL 3.2-5.2 Below low normal Albumin CE ( [facility]) albumin/globulin ratio Albumin/globu aldo Ratio CE ([facility]) ID Date Data Source [id number] 09/28/2020 11:10:00 AM EST [place] ([facility]) Name Value Range Interpretation Code Description Data Natali rce(s) Supporting Document(s) white blood count 5.1 10 4.0-10.0 White Blood Count CE ([facility]) red blood count 3.62 10 4.30-6.10 Below low normal Red Blood Coun t CE ([facility]) hemoglobin 13.5 g/dL 13.5-17.5 Hemoglobin CE ([facility]) hematocrit 39.9 % 42.0-52.0 Below low normal Hematocrit CE ( [facility]) mean corpuscular volume 110.2 fL 80.0-96.0 Above high normal Mean Corpuscular Volume CE ([facility]) mean corpuscular hemoglobin 37.3 pg 27.0-33.0 Above high no rmal Mean Corpuscular Hemoglobin CE ([facility]) red cell distribution width 16.5 % 11.5-14.5 Above high no rmal Red Cell Distribution Width [facility] ([facility]) mean corpuscular HGB conc 33.8 g/dL 32.0-36.5 Mean Corpu scular HGB Conc [place] ([facility]) platelet count, automated 406 10 150-450 Platelet C ount, Automated [place] ([facility]) neutrophils % 58.2 % 36.0-66.0 Neutrophils % [place] ( [facility]) lymph % 23.0 % 24.0-44.0 Below low normal Lymph % [place] ( [facility]) mono % 12.3 % 0.0-5.0 Above high normal Clare % [place] ([facility]) eos % 4.7 % 0.0-3.0 Above high normal Eos % [place] ([facility]) baso % 1.4 % 0.0-1.0 Above high normal Baso % [place] ([facility]) immature granulocyte % 0.4 % 0-3.0 Immature Gran ulocyte % [place] ([facility]) nucleated red blood cell % 0.0 % 0-0 Nucleated Red Blood Cell % CE ([facility]) neutrophils # 3.0 10 1.5-8.5 Neutrophils # [place] ( [facility]) lymph # 1.2 10 1.5-5.0 Below low normal Lymph # CE ( [facility]) mono # 0.6 10 0.0-0.8 Clare # CE ([facility]) eos # 0.2 10 0.0-0.5 Eos # CE ([facility]) baso # 0.1 10 0.0-0.2 Baso # CE ([facility]) ID Date Data Source [id number] 09/28/2020 11:10:00 AM EST [facility] ([facility]) Name Value Range Interpretation Code Description Data Natali rce(s) Supporting Document(s) total 25(oh) vitamin D 10.0 NG/mL 30.0-100.0 Below low normal T otal 25(Oh) Vitamin D [place] ([facility]) ID Date Data Source [id number] 09/28/2020 11:10:00 AM EST [facility] ([facility]) Name Value Range Interpretation Code Description Data Natali rce(s) Supporting Document(s) iron (fe) 62 ug/dL 65-175 Below low normal Iron (Fe) [place] ( [facility]) ID Date Data Source [id number] 09/28/2020 11:10:00 AM EST [facility] ([facility]) Name Value Range Interpretation Code Description Data Natali rce(s) Supporting Document(s) glucose, fasting 69 mg/dL 70-100 Below low normal Glucose, Fast ing CE ([facility]) blood urea nitrogen 7 mg/dL 7-18 Blood Urea Nitro gen [facility] ([facility]) glomerular filtration rate > 60.0 >56 Glomerula r Filtration Rate [facility] ([facility]) creatinine for GFR 0.49 mg/dL 0.70-1.30 Below low normal Creatinine for GFR [facility] ([facility]) sodium level 135 mEq/L 136-145 Below low normal Sodium Level ATHE NA ([facility]) potassium serum 5.1 mEq/L 3.5-5.1 Potassium Serum ATHE NA ([facility]) chloride level 102 mEq/L 98-107 Chloride Level CE ([facility]) carbon dioxide level 24 mEq/L 21-32 Carbon Dioxide Level [facility] ([facility]) anion gap 9 mEq/L 8-16 Anion Gap [facility] ([facility]) calcium level 9.1 mg/dL 8.5-10.1 Calcium Level CE ( [facility]) ALT/SGPT 55 U/L 12-78 ALT/SGPT [facility] ([facility]) AST/SGOT 36 U/L 7-37 AST/SGOT [facility] ([facility]) bilirubin,total 0.7 mg/dL 0.2-1.0 Bilirubin,total [facility] ([facility]) alkaline phosphatase 190 U/L 45-117 Above high normal Alkaline Phosphatase [facility] ([facility]) total protein 6.1 gm/dL 6.4-8.2 Below low normal Total Protein AT [place] ([facility]) albumin/globulin ratio Albumin/globu aldo Ratio [facility] ([facility]) albumin 3.0 gm/dL 3.2-5.2 Below low normal Albumin [facility] ( [facility]) ID Date Data Source [id number] 09/28/2020 11:10:00 AM EST [facility] ([facility]) Name Value Range Interpretation Code Description Data Natali rce(s) Supporting Document(s) white blood count 5.1 10 4.0-10.0 White Blood Count [facility] ([facility]) hemoglobin 13.5 g/dL 13.5-17.5 Hemoglobin [facility] ([facility]) red blood count 3.62 10 4.30-6.10 Below low normal Red Blood Coun t [facility] ([facility]) hematocrit 39.9 % 42.0-52.0 Below low normal Hematocrit [facility] ( [facility]) mean corpuscular volume 110.2 fL 80.0-96.0 Above high normal Mean Corpuscular Volume CE ([facility]) mean corpuscular hemoglobin 37.3 pg 27.0-33.0 Above high no rmal Mean Corpuscular Hemoglobin CE ([facility]) mean corpuscular HGB conc 33.8 g/dL 32.0-36.5 Mean Corpu scular HGB Conc [facility] ([facility]) red cell distribution width 16.5 % 11.5-14.5 Above high no rmal Red Cell Distribution Width [facility] ([facility]) platelet count, automated 406 10 150-450 Platelet C ount, Automated [facility] ([facility]) neutrophils % 58.2 % 36.0-66.0 Neutrophils % [facility] ( [facility]) mono % 12.3 % 0.0-5.0 Above high normal Clare % [facility] ([facility]) lymph % 23.0 % 24.0-44.0 Below low normal Lymph % [place] ( [facility]) eos % 4.7 % 0.0-3.0 Above high normal Eos % [place] ([facility]) baso % 1.4 % 0.0-1.0 Above high normal Baso % [place] ([facility]) immature granulocyte % 0.4 % 0-3.0 Immature Gran ulocyte % [place] ([facility]) nucleated red blood cell % 0.0 % 0-0 Nucleated Red Blood Cell % [place] ([facility]) neutrophils # 3.0 10 1.5-8.5 Neutrophils # CE ( [facility]) lymph # 1.2 10 1.5-5.0 Below low normal Lymph # CE ( [facility]) mono # 0.6 10 0.0-0.8 Clare # CE ([facility]) eos # 0.2 10 0.0-0.5 Eos # [facility] ([facility]) baso # 0.1 10 0.0-0.2 Baso # [facility] ([facility]) ID Date Data Source [id number] 09/14/2020 03:58:00 AM EST [place] ([facility]) Name Value Range Interpretation Code Description Data Natali rce(s) Supporting Document(s) magnesium level 2.0 mg/dL 1.8-2.4 Magnesium Level AT[facility] NA ([facility]) ID Date Data Source [id number] 09/14/2020 03:58:00 AM EST [place] ([facility]) Name Value Range Interpretation Code Description Data Natali rce(s) Supporting Document(s) glucose, fasting 86 mg/dL 70-100 Glucose, Fasting AT [facility]) blood urea nitrogen 18 mg/dL 7-18 Blood Urea Nitro gen [place] ([facility]) creatinine for GFR 0.72 mg/dL 0.70-1.30 Creatinine for GF R [place] ([facility]) glomerular filtration rate > 60.0 >56 Glomerula r Filtration Rate [place] ([facility]) sodium level 136 mEq/L 136-145 Sodium Level [place] ([facility]) potassium serum 4.4 mEq/L 3.5-5.1 Potassium Serum ATH NA [facility]) chloride level 100 mEq/L 98-107 Chloride Level [place] ([facility]) carbon dioxide level 29 mEq/L 21-32 Carbon Dioxide Level [facility]) anion gap 7 mEq/L 8-16 Below low normal Anion Gap [place] ( [facility]) calcium level 7.7 mg/dL 8.5-10.1 Below low normal Calcium Level AT [facility]) ID Date Data Source [id number] 09/14/2020 03:58:00 AM EST [place] ([facility]) Name Value Range Interpretation Code Description Data Natali rce(s) Supporting Document(s) white blood count 5.9 10 4.0-10.0 White Blood Count [place] ([facility]) red blood count 3.21 10 4.30-6.10 Below low normal Red Blood Coun t [place] ([facility]) hemoglobin 11.7 g/dL 13.5-17.5 Below low normal Hemoglobin [place] ( [facility]) hematocrit 36.4 % 42.0-52.0 Below low normal Hematocrit [facility]) mean corpuscular volume 113.4 fL 80.0-96.0 Above high normal Mean Corpuscular Volume [place] ([facility]) mean corpuscular hemoglobin 36.4 pg 27.0-33.0 Above high no rmal Mean Corpuscular Hemoglobin CE ([facility]) red cell distribution width 15.2 % 11.5-14.5 Above high no rmal Red Cell Distribution Width [facility] ([facility]) mean corpuscular HGB conc 32.1 g/dL 32.0-36.5 Mean Corpu scular HGB Conc [facility] ([facility]) nucleated red blood cell % 0.0 % 0-0 Nucleated Red Blood Cell % [facility] ([facility]) platelet count, automated 160 10 150-450 Platelet C ount, Automated [place] ([facility]) ID Date Data Source [id number] 09/14/2020 03:58:00 AM EST [facility]) Name Value Range Interpretation Code Description Data Natali rce(s) Supporting Document(s) magnesium level 2.0 mg/dL 1.8-2.4 Magn[facility] Level [facility]) ID Date Data Source [id number] 09/14/2020 03:58:00 AM EST [place] ([facility]) Name Value Range Interpretation Code Description Data Natali rce(s) Supporting Document(s) glucose, fasting 86 mg/dL 70-100 Glucose, Fasting AT [facility] ([facility]) creatinine for GFR 0.72 mg/dL 0.70-1.30 Creatinine for GF R [facility] ([facility]) blood urea nitrogen 18 mg/dL 7-18 Blood Urea Nitro gen [facility] ([facility]) glomerular filtration rate > 60.0 >56 Glomerula r Filtration Rate [facility] ([facility]) potassium serum 4.4 mEq/L 3.5-5.1 Potassium Serum ATHE NA ([facility]) sodium level 136 mEq/L 136-145 Sodium Level [facility] ([facility]) chloride level 100 mEq/L 98-107 Chloride Level [facility] ([facility]) carbon dioxide level 29 mEq/L 21-32 Carbon Dioxide Level [place] ([facility]) anion gap 7 mEq/L 8-16 Below low normal Anion Gap [place] ( [facility]) calcium level 7.7 mg/dL 8.5-10.1 Below low normal Calcium Level AT [facility]) ID Date Data Source [id number] 09/14/2020 03:58:00 AM EST [place] ([facility]) Name Value Range Interpretation Code Description Data Natali rce(s) Supporting Document(s) white blood count 5.9 10 4.0-10.0 White Blood Count [place] ([facility]) hemoglobin 11.7 g/dL 13.5-17.5 Below low normal Hemoglobin [place] ( [facility]) red blood count 3.21 10 4.30-6.10 Below low normal Red Blood Coun t [place] ([facility]) hematocrit 36.4 % 42.0-52.0 Below low normal Hematocrit [place] ( [facility]) mean corpuscular volume 113.4 fL 80.0-96.0 Above high normal Mean Corpuscular Volume [place] ([facility]) mean corpuscular hemoglobin 36.4 pg 27.0-33.0 Above high no rmal Mean Corpuscular Hemoglobin [place] ([facility]) mean corpuscular HGB conc 32.1 g/dL 32.0-36.5 Mean Corpu scular HGB Conc [place] ([facility]) platelet count, automated 160 10 150-450 Platelet C ount, Automated [place] ([facility]) red cell distribution width 15.2 % 11.5-14.5 Above high no rmal Red Cell Distribution Width [place] ([facility]) nucleated red blood cell % 0.0 % 0-0 Nucleated Red Blood Cell % [place] ([facility]) ID Date Data Source [id number] 09/14/2020 03:58:00 AM EST [facility] ([facility]) Name Value Range Interpretation Code Description Data Natali rce(s) Supporting Document(s) magnesium level 2.0 mg/dL 1.8-2.4 Magnesium Level AT[facility] NA ([facility]) ID Date Data Source [id number] 09/14/2020 03:58:00 AM EST [facility] ([facility]) Name Value Range Interpretation Code Description Data Natali rce(s) Supporting Document(s) glucose, fasting 86 mg/dL 70-100 Glucose, Fasting AT [place] ([facility]) blood urea nitrogen 18 mg/dL 7-18 Blood Urea Nitro gen [facility] ([facility]) creatinine for GFR 0.72 mg/dL 0.70-1.30 Creatinine for GF R [facility] ([facility]) glomerular filtration rate > 60.0 >56 Glomerula r Filtration Rate [facility] ([facility]) sodium level 136 mEq/L 136-145 Sodium Level CE (No [facility]) potassium serum 4.4 mEq/L 3.5-5.1 Potassium Serum AT[facility] ([facility]) chloride level 100 mEq/L 98-107 Chloride Level [place] ([facility]) carbon dioxide level 29 mEq/L 21-32 Carbon Dioxide Level [place] ([facility]) anion gap 7 mEq/L 8-16 Below low normal Anion Gap [place] ( [facility]) ID Date Data Source [id number] 09/14/2020 03:58:00 AM EST [facility] ([facility]) Name Value Range Interpretation Code Description Data Natali rce(s) Supporting Document(s) white blood count 5.9 10 4.0-10.0 White Blood Count [place] ([facility]) red blood count 3.21 10 4.30-6.10 Below low normal Red Blood Coun t [facility] ([facility]) hemoglobin 11.7 g/dL 13.5-17.5 Below low normal Hemoglobin [facility] ( [facility]) hematocrit 36.4 % 42.0-52.0 Below low normal Hematocrit [facility] ( [facility]) mean corpuscular volume 113.4 fL 80.0-96.0 Above high normal Mean Corpuscular Volume [facility] ([facility]) mean corpuscular HGB conc 32.1 g/dL 32.0-36.5 Mean Corpu scular HGB Conc [facility] ([facility]) mean corpuscular hemoglobin 36.4 pg 27.0-33.0 Above high no rmal Mean Corpuscular Hemoglobin [facility] ([facility]) red cell distribution width 15.2 % 11.5-14.5 Above high no rmal Red Cell Distribution Width [facility] ([facility]) nucleated red blood cell % 0.0 % 0-0 Nucleated Red Blood Cell % [place] ([facility]) platelet count, automated 160 10 150-450 Platelet C ount, Automated [facility] ([facility]) ID Date Data Source [id number] 09/13/2020 04:51:00 AM EST [place] ([facility]) Name Value Range Interpretation Code Description Data Natali rce(s) Supporting Document(s) nt-pro BNP 8921 pg/mL <125 Above high normal Nt-pro BNP [place] ([facility]) ID Date Data Source [id number] 09/13/2020 04:51:00 AM EST [place] ([facility]) Name Value Range Interpretation Code Description Data Natali rce(s) Supporting Document(s) magnesium level 1.9 mg/dL 1.8-2.4 Magnesium Level [facility] ([facility]) ID Date Data Source [id number] 09/13/2020 04:51:00 AM EST [place] ([facility]) Name Value Range Interpretation Code Description Data Natali rce(s) Supporting Document(s) glucose, fasting 108 mg/dL 70-100 Above high normal Glucose, Fas ting [facility] ([facility]) blood urea nitrogen 16 mg/dL 7-18 Blood Urea Nitro gen [facility] ([facility]) creatinine for GFR 0.65 mg/dL 0.70-1.30 Below low normal Creatinine for GFR [place] ([facility]) glomerular filtration rate > 60.0 >56 Glomerula r Filtration Rate [facility] ([facility]) sodium level 132 mEq/L 136-145 Below low normal Sodium Level ATHE NA ([facility]) potassium serum 4.4 mEq/L 3.5-5.1 Potassium Serum ATHE NA ([facility]) carbon dioxide level 34 mEq/L 21-32 Above high normal Carbon D ioxide Level [facility] ([facility]) chloride level 96 mEq/L 98-107 Below low normal Chloride Level [facility] ([facility]) anion gap 2 mEq/L 8-16 Below low normal Anion Gap [facility] ( [facility]) calcium level 8.0 mg/dL 8.5-10.1 Below low normal Calcium Level AT [facility]) ID Date Data Source [id number] 09/13/2020 04:51:00 AM EST [place] ([facility]) Name Value Range Interpretation Code Description Data Natali rce(s) Supporting Document(s) white blood count 6.8 10 4.0-10.0 White Blood Count [place] ([facility]) red blood count 3.41 10 4.30-6.10 Below low normal Red Blood Coun t [place] ([facility]) hemoglobin 12.3 g/dL 13.5-17.5 Below low normal Hemoglobin [facility] ( [facility]) hematocrit 36.7 % 42.0-52.0 Below low normal Hematocrit [facility] ( [facility]) mean corpuscular volume 107.6 fL 80.0-96.0 Above high normal Mean Corpuscular Volume [facility] ([facility]) mean corpuscular hemoglobin 36.1 pg 27.0-33.0 Above high no rmal Mean Corpuscular Hemoglobin [facility] ([facility]) mean corpuscular HGB conc 33.5 g/dL 32.0-36.5 Mean Corpu scular HGB Conc [facility] ([facility]) red cell distribution width 15.0 % 11.5-14.5 Above high no rmal Red Cell Distribution Width [place] ([facility]) platelet count, automated 178 10 150-450 Platelet C ount, Automated [place] ([facility]) nucleated red blood cell % 0.3 % 0-0 Above high nor mal Nucleated Red Blood Cell % [facility] ([facility]) ID Date Data Source [id number] 09/13/2020 04:51:00 AM EST [facility] ([facility]) Name Value Range Interpretation Code Description Data Natali rce(s) Supporting Document(s) nt-pro BNP 8921 pg/mL <125 Above high normal Nt-pro BNP [place] ([facility]) ID Date Data Source [id number] 09/13/2020 04:51:00 AM EST [place] ([facility]) Name Value Range Interpretation Code Description Data Natali rce(s) Supporting Document(s) magnesium level 1.9 mg/dL 1.8-2.4 [facility] ID Date Data Source [id number] 09/13/2020 04:51:00 AM EST [place] ([facility]) Name Value Range Interpretation Code Description Data Natali rce(s) Supporting Document(s) glucose, fasting 108 mg/dL 70-100 Above high normal Glucose, Fas ting [facility] ([facility]) blood urea nitrogen 16 mg/dL 7-18 Blood Urea Nitro gen [place] ([facility]) creatinine for GFR 0.65 mg/dL 0.70-1.30 Below low normal Creatinine for GFR [place] ([facility]) glomerular filtration rate > 60.0 >56 Glomerula r Filtration Rate [place] ([facility]) sodium level 132 mEq/L 136-145 Below low normal Sodium Level [place] [place] ([facility]) potassium serum 4.4 mEq/L 3.5-5.1 Potassium Serum [place] ([facility]) chloride level 96 mEq/L 98-107 Below low normal Chloride Level [place] ([facility]) carbon dioxide level 34 mEq/L 21-32 Above high normal Carbon D ioxide Level [place] ([facility]) calcium level 8.0 mg/dL 8.5-10.1 Below low normal Calcium Level AT [facility]) anion gap 2 mEq/L 8-16 Below low normal Anion Gap [place] ( [facility]) ID Date Data Source [id number] 09/13/2020 04:51:00 AM EST [place] ([facility]) Name Value Range Interpretation Code Description Data Natali rce(s) Supporting Document(s) white blood count 6.8 10 4.0-10.0 White Blood Count [place] ([facility]) red blood count 3.41 10 4.30-6.10 Below low normal Red Blood Coun t [place] ([facility]) hemoglobin 12.3 g/dL 13.5-17.5 Below low normal Hemoglobin [place] ( [facility]) hematocrit 36.7 % 42.0-52.0 Below low normal Hematocrit [place] ( [facility]) mean corpuscular volume 107.6 fL 80.0-96.0 Above high normal Mean Corpuscular Volume [place] ([facility]) mean corpuscular hemoglobin 36.1 pg 27.0-33.0 Above high no rmal Mean Corpuscular Hemoglobin [place] ([facility]) mean corpuscular HGB conc 33.5 g/dL 32.0-36.5 Mean Corpu scular HGB Conc [place] ([facility]) red cell distribution width 15.0 % 11.5-14.5 Above high no rmal Red Cell Distribution Width [place] ([facility]) nucleated red blood cell % 0.3 % 0-0 Above high nor mal Nucleated Red Blood Cell % [place] ([facility]) platelet count, automated 178 10 150-450 Platelet C ount, Automated [facility]) ID Date Data Source [id number] 09/13/2020 04:51:00 AM EST [place] ([facility]) Name Value Range Interpretation Code Description Data Natali rce(s) Supporting Document(s) nt-pro BNP 8921 pg/mL <125 Above high normal Nt-pro BNP [facility] ([facility]) ID Date Data Source [id number] 09/13/2020 04:51:00 AM EST [place] ([facility]) Name Value Range Interpretation Code Description Data Natali rce(s) Supporting Document(s) magnesium level 1.9 mg/dL 1.8-2.4 Magnesium Level [facility] ([facility]) ID Date Data Source [id number] 09/13/2020 04:51:00 AM EST [place] ([facility]) Name Value Range Interpretation Code Description Data Natali rce(s) Supporting Document(s) glucose, fasting 108 mg/dL 70-100 Above high normal Glucose, Fas ting [facility] ([facility]) blood urea nitrogen 16 mg/dL 7-18 Blood Urea Nitro gen [facility] ([facility]) creatinine for GFR 0.65 mg/dL 0.70-1.30 Below low normal Creatinine for GFR [facility] ([facility]) glomerular filtration rate > 60.0 >56 Glomerula r Filtration Rate [facility] ([facility]) potassium serum 4.4 mEq/L 3.5-5.1 Potassium Serum [facility] ([facility]) sodium level 132 mEq/L 136-145 Below low normal Sodium Level [facility] ([facility]) chloride level 96 mEq/L 98-107 Below low normal Chloride Level [facility] ([facility]) carbon dioxide level 34 mEq/L 21-32 Above high normal Carbon D ioxide Level [facility] ([facility]) calcium level 8.0 mg/dL 8.5-10.1 Below low normal Calcium Level AT [facility] ([facility]) anion gap 2 mEq/L 8-16 Below low normal Anion Gap [facility] ( [facility]) ID Date Data Source [id number] 09/13/2020 04:51:00 AM EST [place] ([facility]) Name Value Range Interpretation Code Description Data Natali rce(s) Supporting Document(s) white blood count 6.8 10 4.0-10.0 White Blood Count [facility] ([facility]) red blood count 3.41 10 4.30-6.10 Below low normal Red Blood Coun t [place] ([facility]) hemoglobin 12.3 g/dL 13.5-17.5 Below low normal Hemoglobin [place] ( [facility]) hematocrit 36.7 % 42.0-52.0 Below low normal Hematocrit [place] ( [facility]) mean corpuscular volume 107.6 fL 80.0-96.0 Above high normal Mean Corpuscular Volume [place] ([facility]) mean corpuscular hemoglobin 36.1 pg 27.0-33.0 Above high no rmal Mean Corpuscular Hemoglobin [place] ([facility]) mean corpuscular HGB conc 33.5 g/dL 32.0-36.5 Mean Corpu scular HGB Conc [place] ([facility]) red cell distribution width 15.0 % 11.5-14.5 Above high no rmal Red Cell Distribution Width [place] ([facility]) platelet count, automated 178 10 150-450 Platelet C ount, Automated [place] ([facility]) nucleated red blood cell % 0.3 % 0-0 Above high nor mal Nucleated Red Blood Cell % [place] ([facility]) ID Date Data Source [id number] 09/12/2020 05:06:00 AM EST [place] ([facility]) Name Value Range Interpretation Code Description Data Natali rce(s) Supporting Document(s) magnesium level 1.7 mg/dL 1.8-2.4 Below low normal Magnesium Justicee l [place] ([facility]) ID Date Data Source [id number] 09/12/2020 05:06:00 AM EST [place] ([facility]) Name Value Range Interpretation Code Description Data Natali rce(s) Supporting Document(s) glucose, fasting 111 mg/dL 70-100 Above high normal Glucose, Fas ting [place] ([facility]) creatinine for GFR 0.56 mg/dL 0.70-1.30 Below low normal Creatinine for GFR [facility] ([facility]) blood urea nitrogen 19 mg/dL 7-18 Above high normal Blood Ure a Nitrogen [place] ([facility]) glomerular filtration rate > 60.0 >56 Glomerula r Filtration Rate [place] ([facility]) sodium level 130 mEq/L 136-145 Below low normal Sodium Level [place] [place] ([facility]) chloride level 89 mEq/L 98-107 Below low normal Chloride Level [place] ([facility]) potassium serum 3.3 mEq/L 3.5-5.1 Below low normal Potassium Seru m [place] ([facility]) carbon dioxide level 36 mEq/L 21-32 Above high normal Carbon D ioxide Level [place] ([facility]) anion gap 5 mEq/L 8-16 Below low normal Anion Gap [place] ( [facility]) calcium level 8.0 mg/dL 8.5-10.1 Below low normal Calcium Level AT [place] ([facility]) ID Date Data Source [id number] 09/12/2020 05:06:00 AM EST [place] ([facility]) Name Value Range Interpretation Code Description Data Natali rce(s) Supporting Document(s) magnesium level 1.7 mg/dL 1.8-2.4 Below low normal Magnesium Leve l [place] ([facility]) ID Date Data Source [id number] 09/12/2020 05:06:00 AM EST [place] ([facility]) Name Value Range Interpretation Code Description Data Natali rce(s) Supporting Document(s) glucose, fasting 111 mg/dL 70-100 Above high normal Glucose, Fas ting [place] ([facility]) blood urea nitrogen 19 mg/dL 7-18 Above high normal Blood Ure a Nitrogen [place] ([facility]) creatinine for GFR 0.56 mg/dL 0.70-1.30 Below low normal Creatinine for GFR [place] ([facility]) glomerular filtration rate > 60.0 >56 Glomerula r Filtration Rate [place] ([facility]) sodium level 130 mEq/L 136-145 Below low normal Sodium Level [place] ([facility]) chloride level 89 mEq/L 98-107 Below low normal Chloride Level [place] ([facility]) potassium serum 3.3 mEq/L 3.5-5.1 Below low normal Potassium Seru m [place] ([facility]) anion gap 5 mEq/L 8-16 Below low normal Anion Gap [facility] ( [facility]) carbon dioxide level 36 mEq/L 21-32 Above high normal Carbon D ioxide Level [place] ([facility]) calcium level 8.0 mg/dL 8.5-10.1 Below low normal Calcium Level AT [facility]) ID Date Data Source [id number] 09/12/2020 05:06:00 AM EST [place] ([facility]) Name Value Range Interpretation Code Description Data Natali rce(s) Supporting Document(s) magnesium level 1.7 mg/dL 1.8-2.4 Below low normal Magnesium Leve l [place] ([facility]) ID Date Data Source [id number] 09/12/2020 05:06:00 AM EST [place] ([facility]) Name Value Range Interpretation Code Description Data Natali rce(s) Supporting Document(s) glucose, fasting 111 mg/dL 70-100 Above high normal Glucose, Fas ting [place] ([facility]) blood urea nitrogen 19 mg/dL 7-18 Above high normal Blood Ure a Nitrogen [place] ([facility]) creatinine for GFR 0.56 mg/dL 0.70-1.30 Below low normal Creatinine for GFR [place] ([facility]) glomerular filtration rate > 60.0 >56 Glomerula r Filtration Rate [place] ([facility]) sodium level 130 mEq/L 136-145 Below low normal Sodium Level [facility] ([facility]) potassium serum 3.3 mEq/L 3.5-5.1 Below low normal Potassium Seru m [place] ([facility]) chloride level 89 mEq/L 98-107 Below low normal Chloride Level [facility] ([facility]) carbon dioxide level 36 mEq/L 21-32 Above high normal Carbon D ioxide Level [facility] ([facility]) anion gap 5 mEq/L 8-16 Below low normal Anion Gap [place] ( [facility]) calcium level 8.0 mg/dL 8.5-10.1 Below low normal Calcium Level AT [facility] ([facility]) ID Date Data Source [id number] 09/11/2020 10:44:00 AM EST [place] ([facility]) Name Value Range Interpretation Code Description Data Natali rce(s) Supporting Document(s) glucose, fasting 119 mg/dL 70-100 Above high normal Glucose, Fas ting [place] ([facility]) blood urea nitrogen 15 mg/dL 7-18 Blood Urea Nitro gen [place] ([facility]) creatinine for GFR 0.76 mg/dL 0.70-1.30 Creatinine for GF R [place] ([facility]) glomerular filtration rate > 60.0 >56 Glomerula r Filtration Rate [place] ([facility]) sodium level 132 mEq/L 136-145 Below low normal Sodium Level [facility] ([facility]) potassium serum 3.7 mEq/L 3.5-5.1 Potassium Serum [facility] ([facility]) chloride level 89 mEq/L 98-107 Below low normal Chloride Level [place] ([facility]) carbon dioxide level 38 mEq/L 21-32 Above high normal Carbon D ioxide Level [place] ([facility]) anion gap 5 mEq/L 8-16 Below low normal Anion Gap [place] ( [facility]) calcium level 7.8 mg/dL 8.5-10.1 Below low normal Calcium Level AT [facility] ([facility]) ID Date Data Source [id number] 09/11/2020 10:44:00 AM EST [place] ([facility]) Name Value Range Interpretation Code Description Data Natali rce(s) Supporting Document(s) white blood count 8.8 10 4.0-10.0 White Blood Count [place] ([facility]) red blood count 3.96 10 4.30-6.10 Below low normal Red Blood Coun t [place] ([facility]) hemoglobin 14.2 g/dL 13.5-17.5 Hemoglobin [place] ([facility]) mean corpuscular volume 107.8 fL 80.0-96.0 Above high normal Mean Corpuscular Volume [place] ([facility]) hematocrit 42.7 % 42.0-52.0 Hematocrit [place] ([facility]) mean corpuscular hemoglobin 35.9 pg 27.0-33.0 Above high no rmal Mean Corpuscular Hemoglobin [place] ([facility]) mean corpuscular HGB conc 33.3 g/dL 32.0-36.5 Mean Corpu scular HGB Conc [place] ([facility]) red cell distribution width 15.0 % 11.5-14.5 Above high no rmal Red Cell Distribution Width [place] ([facility]) platelet count, automated 192 10 150-450 Platelet C ount, Automated [place] ([facility]) nucleated red blood cell % 0.0 % 0-0 Nucleated Red Blood Cell % [place] ([facility]) ID Date Data Source [id number] 09/11/2020 10:44:00 AM EST [place] ([facility]) Name Value Range Interpretation Code Description Data Natali rce(s) Supporting Document(s) glucose, fasting 119 mg/dL 70-100 Above high normal Glucose, Fas ting [place] ([facility]) creatinine for GFR 0.76 mg/dL 0.70-1.30 Creatinine for GF R [place] ([facility]) blood urea nitrogen 15 mg/dL 7-18 Blood Urea Nitro gen [place] ([facility]) glomerular filtration rate > 60.0 >56 Glomerula r Filtration Rate [place] ([facility]) chloride level 89 mEq/L 98-107 Below low normal Chloride Level [place] ([facility]) sodium level 132 mEq/L 136-145 Below low normal Sodium Level [facility] ([facility]) potassium serum 3.7 mEq/L 3.5-5.1 Potassium Serum [facility] ([facility]) carbon dioxide level 38 mEq/L 21-32 Above high normal Carbon D ioxide Level [facility] ([facility]) anion gap 5 mEq/L 8-16 Below low normal Anion Gap [place] ( [facility]) calcium level 7.8 mg/dL 8.5-10.1 Below low normal Calcium Level AT [place] ([facility]) ID Date Data Source [id number] 09/11/2020 10:44:00 AM EST [place] ([facility]) Name Value Range Interpretation Code Description Data Natali rce(s) Supporting Document(s) red blood count 3.96 10 4.30-6.10 Below low normal Red Blood Coun t [place] ([facility]) white blood count 8.8 10 4.0-10.0 White Blood Count [facility] ([facility]) hematocrit 42.7 % 42.0-52.0 Hematocrit [facility] ([facility]) hemoglobin 14.2 g/dL 13.5-17.5 Hemoglobin [place] ([facility]) mean corpuscular hemoglobin 35.9 pg 27.0-33.0 Above high no rmal Mean Corpuscular Hemoglobin [facility] ([facility]) mean corpuscular volume 107.8 fL 80.0-96.0 Above high normal Mean Corpuscular Volume [facility] ([facility]) mean corpuscular HGB conc 33.3 g/dL 32.0-36.5 Mean Corpu scular HGB Conc [facility] ([facility]) red cell distribution width 15.0 % 11.5-14.5 Above high no rmal Red Cell Distribution Width [facility] ([facility]) nucleated red blood cell % 0.0 % 0-0 Nucleated Red Blood Cell % [facility] ([facility]) platelet count, automated 192 10 150-450 Platelet C ount, Automated [place] ([facility]) ID Date Data Source [id number] 09/11/2020 10:44:00 AM EST [place] ([facility]) Name Value Range Interpretation Code Description Data Natali rce(s) Supporting Document(s) glucose, fasting 119 mg/dL 70-100 Above high normal Glucose, Fas ting [place] ([facility]) blood urea nitrogen 15 mg/dL 7-18 Blood Urea Nitro gen [place] ([facility]) creatinine for GFR 0.76 mg/dL 0.70-1.30 Creatinine for GF R [place] ([facility]) glomerular filtration rate > 60.0 >56 Glomerula r Filtration Rate [place] ([facility]) sodium level 132 mEq/L 136-145 Below low normal Sodium Level [facility] ([facility]) potassium serum 3.7 mEq/L 3.5-5.1 Potassium Serum [facility] ([facility]) chloride level 89 mEq/L 98-107 Below low normal Chloride Level [place] ([facility]) carbon dioxide level 38 mEq/L 21-32 Above high normal Carbon D ioxide Level [place] ([facility]) anion gap 5 mEq/L 8-16 Below low normal Anion Gap [place] ( [facility]) calcium level 7.8 mg/dL 8.5-10.1 Below low normal Calcium Level AT [facility] ([facility]) ID Date Data Source [id number] 09/11/2020 10:44:00 AM EST [place] ([facility]) Name Value Range Interpretation Code Description Data Natali rce(s) Supporting Document(s) white blood count 8.8 10 4.0-10.0 White Blood Count [place] ([facility]) red blood count 3.96 10 4.30-6.10 Below low normal Red Blood Coun t [place] ([facility]) hemoglobin 14.2 g/dL 13.5-17.5 Hemoglobin [place] ([facility]) hematocrit 42.7 % 42.0-52.0 Hematocrit [place] ([facility]) mean corpuscular volume 107.8 fL 80.0-96.0 Above high normal Mean Corpuscular Volume [place] ([facility]) mean corpuscular HGB conc 33.3 g/dL 32.0-36.5 Mean Corpu scular HGB Conc [facility] ([facility]) mean corpuscular hemoglobin 35.9 pg 27.0-33.0 Above high no rmal Mean Corpuscular Hemoglobin [facility] ([facility]) red cell distribution width 15.0 % 11.5-14.5 Above high no rmal Red Cell Distribution Width [place] ([facility]) platelet count, automated 192 10 150-450 Platelet C ount, Automated [place] ([facility]) nucleated red blood cell % 0.0 % 0-0 Nucleated Red Blood Cell % [place] ([facility]) ID Date Data Source [id number] 09/11/2020 04:55:00 AM [facility] ([facility]) Name Value Range Interpretation Code Description Data Natali rce(s) Supporting Document(s) magnesium level 1.3 mg/dL 1.8-2.4 Below low normal Magnesium Se [place] ([facility]) ID Date Data Source [id number] 09/11/2020 04:55:00 AM [facility] ([facility]) Name Value Range Interpretation Code Description Data Natali rce(s) Supporting Document(s) magnesium level 1.3 mg/dL 1.8-2.4 Below low normal Magnesium Se [place] ([facility]) ID Date Data Source [id number] 09/11/2020 04:55:00 AM EST [place] ([facility]) Name Value Range Interpretation Code Description Data Natali rce(s) Supporting Document(s) magnesium level 1.3 mg/dL 1.8-2.4 Below low normal Magnesium Se l [facility] ([facility]) ID Date Data Source [id number] 09/10/2020 05:04:00 AM [facility] ([facility]) Name Value Range Interpretation Code Description Data Natali rce(s) Supporting Document(s) glucose, fasting 100 mg/dL 70-100 Glucose, Fasting AT [facility] ([facility]) blood urea nitrogen 19 mg/dL 7-18 Above high normal Blood Ure a Nitrogen [place] ([facility]) creatinine for GFR 0.80 mg/dL 0.70-1.30 Creatinine for GF R [place] ([facility]) glomerular filtration rate > 60.0 >56 Glomerula r Filtration Rate [place] ([facility]) sodium level 134 mEq/L 136-145 Below low normal Sodium Level [facility] ([facility]) potassium serum 3.7 mEq/L 3.5-5.1 Potassium Serum [facility] ([facility]) chloride level 93 mEq/L 98-107 Below low normal Chloride Level [place] ([facility]) carbon dioxide level 36 mEq/L 21-32 Above high normal Carbon D ioxide Level [facility]) anion gap 5 mEq/L 8-16 Below low normal Anion Gap [place] ( [facility]) calcium level 7.7 mg/dL 8.5-10.1 Below low normal Calcium Level AT [facility]) ID Date Data Source [id number] 09/10/2020 05:04:00 AM EST [place] ([facility]) Name Value Range Interpretation Code Description Data Natali rce(s) Supporting Document(s) white blood count 5.9 10 4.0-10.0 White Blood Count [place] ([facility]) red blood count 3.53 10 4.30-6.10 Below low normal Red Blood Coun t [place] ([facility]) hemoglobin 13.1 g/dL 13.5-17.5 Below low normal Hemoglobin [place] ( [facility]) mean corpuscular volume 109.3 fL 80.0-96.0 Above high normal Mean Corpuscular Volume [place] ([facility]) hematocrit 38.6 % 42.0-52.0 Below low normal Hematocrit [place] ( [facility]) mean corpuscular hemoglobin 37.1 pg 27.0-33.0 Above high no rmal Mean Corpuscular Hemoglobin [place] ([facility]) mean corpuscular HGB conc 33.9 g/dL 32.0-36.5 Mean Corpu scular HGB Conc [place] ([facility]) red cell distribution width 14.7 % 11.5-14.5 Above high no rmal Red Cell Distribution Width [place] ([facility]) platelet count, automated 154 10 150-450 Platelet C ount, Automated [place] ([facility]) nucleated red blood cell % 0.0 % 0-0 Nucleated Red Blood Cell % [place] ([facility]) ID Date Data Source [id number] 09/10/2020 05:04:00 AM EST [facility]) Name Value Range Interpretation Code Description Data Natali rce(s) Supporting Document(s) glucose, fasting 100 mg/dL 70-100 Glucose, Fasting AT [facility]) blood urea nitrogen 19 mg/dL 7-18 Above high normal Blood Ure a Nitrogen [place] ([facility]) glomerular filtration rate > 60.0 >56 Glomerula r Filtration Rate [place] ([facility]) creatinine for GFR 0.80 mg/dL 0.70-1.30 Creatinine for GF R [place] ([facility]) sodium level 134 mEq/L 136-145 Below low normal Sodium Level ATHE NA ([facility]) potassium serum 3.7 mEq/L 3.5-5.1 Potassium Serum [place] [place] ([facility]) chloride level 93 mEq/L 98-107 Below low normal Chloride Level CE ([facility]) anion gap 5 mEq/L 8-16 Below low normal Anion Gap [place] ( [facility]) carbon dioxide level 36 mEq/L 21-32 Above high normal Carbon D ioxide Level [place] ([facility]) calcium level 7.7 mg/dL 8.5-10.1 Below low normal Calcium Level AT [facility]) ID Date Data Source [id number] 09/10/2020 05:04:00 AM EST CE ([facility]) Name Value Range Interpretation Code Description Data Natali rce(s) Supporting Document(s) white blood count 5.9 10 4.0-10.0 White Blood Count [place] ([facility]) hemoglobin 13.1 g/dL 13.5-17.5 Below low normal Hemoglobin [place] ( [facility]) red blood count 3.53 10 4.30-6.10 Below low normal Red Blood Coun t [place] ([facility]) mean corpuscular volume 109.3 fL 80.0-96.0 Above high normal Mean Corpuscular Volume [place] ([facility]) hematocrit 38.6 % 42.0-52.0 Below low normal Hematocrit [place] ( [facility]) mean corpuscular HGB conc 33.9 g/dL 32.0-36.5 Mean Corpu scular HGB Conc [place] ([facility]) mean corpuscular hemoglobin 37.1 pg 27.0-33.0 Above high no rmal Mean Corpuscular Hemoglobin [place] ([facility]) red cell distribution width 14.7 % 11.5-14.5 Above high no rmal Red Cell Distribution Width [place] ([facility]) platelet count, automated 154 10 150-450 Platelet C ount, Automated [place] ([facility]) nucleated red blood cell % 0.0 % 0-0 Nucleated Red Blood Cell % [place] ([facility]) ID Date Data Source [id number] 09/10/2020 05:04:00 AM EST [place] ([facility]) Name Value Range Interpretation Code Description Data Natali rce(s) Supporting Document(s) glucose, fasting 100 mg/dL 70-100 Glucose, Fasting AT [facility] ([facility]) blood urea nitrogen 19 mg/dL 7-18 Above high normal Blood Ure a Nitrogen [place] ([facility]) creatinine for GFR 0.80 mg/dL 0.70-1.30 Creatinine for GF R [place] ([facility]) glomerular filtration rate > 60.0 >56 Glomerula r Filtration Rate [place] ([facility]) sodium level 134 mEq/L 136-145 Below low normal Sodium Level AT[facility] NA ([facility]) potassium serum 3.7 mEq/L 3.5-5.1 Potassium Serum [place] [place] ([facility]) chloride level 93 mEq/L 98-107 Below low normal Chloride Level [place] ([facility]) carbon dioxide level 36 mEq/L 21-32 Above high normal Carbon D ioxide Level [place] ([facility]) calcium level 7.7 mg/dL 8.5-10.1 Below low normal Calcium Level AT [place] ([facility]) anion gap 5 mEq/L 8-16 Below low normal Anion Gap [place] ( [facility]) ID Date Data Source [id number] 09/10/2020 05:04:00 AM EST [place] ([facility]) Name Value Range Interpretation Code Description Data Natali rce(s) Supporting Document(s) red blood count 3.53 10 4.30-6.10 Below low normal Red Blood Coun t [place] ([facility]) white blood count 5.9 10 4.0-10.0 White Blood Count [place] ([facility]) hemoglobin 13.1 g/dL 13.5-17.5 Below low normal Hemoglobin [place] ( [facility]) mean corpuscular volume 109.3 fL 80.0-96.0 Above high normal Mean Corpuscular Volume [place] ([facility]) hematocrit 38.6 % 42.0-52.0 Below low normal Hematocrit [place] ( [facility]) mean corpuscular HGB conc 33.9 g/dL 32.0-36.5 Mean Corpu scular HGB Conc [place] ([facility]) mean corpuscular hemoglobin 37.1 pg 27.0-33.0 Above high no rmal Mean Corpuscular Hemoglobin [place] ([facility]) platelet count, automated 154 10 150-450 Platelet C ount, Automated [place] ([facility]) red cell distribution width 14.7 % 11.5-14.5 Above high no rmal Red Cell Distribution Width [place] ([facility]) nucleated red blood cell % 0.0 % 0-0 Nucleated Red Blood Cell % [place] ([facility]) ID Date Data Source [id number] 09/09/2020 04:46:00 AM EST [place] ([facility]) Name Value Range Interpretation Code Description Data Natali rce(s) Supporting Document(s) magnesium level 1.8 mg/dL 1.8-2.4 Magnesium Level AT[facility] NA ([facility]) ID Date Data Source [id number] 09/09/2020 04:46:00 AM EST [place] ([facility]) Name Value Range Interpretation Code Description Data Natali rce(s) Supporting Document(s) T uptake 35 % 33-40 T Uptake [facility] ([facility]) thyroxine (T4) 5.8 ug/dL 4.5-12.0 Thyroxine (T4) [place] ([facility]) free thyroxine index 2.0 % 1.4-3.8 Free Thyroxine Index [place] ([facility]) thyroid stimulating hormone 8.350 uIU/mL 0.358-3.740 Above high no rmal Thyroid Stimulating Hormone [place] ([facility]) ID Date Data Source [id number] 09/09/2020 04:46:00 AM EST [place] ([facility]) Name Value Range Interpretation Code Description Data Natali rce(s) Supporting Document(s) blood urea nitrogen 25 mg/dL 7-18 Above high normal Blood Ure a Nitrogen [place] ([facility]) glucose, fasting 89 mg/dL 70-100 Glucose, Fasting AT [facility] ([facility]) glomerular filtration rate > 60.0 >56 Glomerula r Filtration Rate [place] ([facility]) creatinine for GFR 1.04 mg/dL 0.70-1.30 Creatinine for GF R [place] ([facility]) sodium level 133 mEq/L 136-145 Below low normal Sodium Level [facility] [place] ([facility]) potassium serum 3.2 mEq/L 3.5-5.1 Below low normal Potassium Seru m [place] ([facility]) chloride level 93 mEq/L 98-107 Below low normal Chloride Level [place] ([facility]) carbon dioxide level 32 mEq/L 21-32 Carbon Dioxide Level [place] ([facility]) anion gap 8 mEq/L 8-16 Anion Gap [place] ([facility]) calcium level 7.4 mg/dL 8.5-10.1 Below low normal Calcium Level AT [facility]) ID Date Data Source [id number] 09/09/2020 04:46:00 AM EST [facility]) Name Value Range Interpretation Code Description Data Natali rce(s) Supporting Document(s) white blood count 5.5 10 4.0-10.0 White Blood Count [place] ([facility]) red blood count 3.14 10 4.30-6.10 Below low normal Red Blood Coun t [place] ([facility]) hemoglobin 11.3 g/dL 13.5-17.5 Below low normal Hemoglobin [place] ( [facility]) hematocrit 33.8 % 42.0-52.0 Below low normal Hematocrit [place] ( [facility]) mean corpuscular volume 107.6 fL 80.0-96.0 Above high normal Mean Corpuscular Volume [place] ([facility]) mean corpuscular HGB conc 33.4 g/dL 32.0-36.5 Mean Corpu scular HGB Conc [place] ([facility]) mean corpuscular hemoglobin 36.0 pg 27.0-33.0 Above high no rmal Mean Corpuscular Hemoglobin [place] ([facility]) red cell distribution width 14.6 % 11.5-14.5 Above high no rmal Red Cell Distribution Width [place] ([facility]) platelet count, automated 128 10 150-450 Below low jania l Platelet Count, Automated [facility]) nucleated red blood cell % 0.0 % 0-0 Nucleated Red Blood Cell % [place] ([facility]) ID Date Data Source [id number] 09/09/2020 04:46:00 AM EST [place] ([facility]) Name Value Range Interpretation Code Description Data Natali rce(s) Supporting Document(s) magnesium level 1.8 mg/dL 1.8-2.4 Magnesium Level [place] [place] ([facility]) ID Date Data Source [id number] 09/09/2020 04:46:00 AM EST [place] ([facility]) Name Value Range Interpretation Code Description Data Natali rce(s) Supporting Document(s) T uptake 35 % 33-40 T Uptake [place] ([facility]) thyroxine (T4) 5.8 ug/dL 4.5-12.0 Thyroxine (T4) [place] ([facility]) free thyroxine index 2.0 % 1.4-3.8 Free Thyroxine Index [place] ([facility]) thyroid stimulating hormone 8.350 uIU/mL 0.358-3.740 Above high no rmal Thyroid Stimulating Hormone [place] ([facility]) ID Date Data Source [id number] 09/09/2020 04:46:00 AM EST [place] ([facility]) Name Value Range Interpretation Code Description Data Natali rce(s) Supporting Document(s) glucose, fasting 89 mg/dL 70-100 Glucose, Fasting AT [facility]) blood urea nitrogen 25 mg/dL 7-18 Above high normal Blood Ure a Nitrogen [place] ([facility]) creatinine for GFR 1.04 mg/dL 0.70-1.30 Creatinine for GF R [place] ([facility]) sodium level 133 mEq/L 136-145 Below low normal Sodium Level [facility] [place] ([facility]) glomerular filtration rate > 60.0 >56 Glomerula r Filtration Rate [place] ([facility]) chloride level 93 mEq/L 98-107 Below low normal Chloride Level [place] ([facility]) potassium serum 3.2 mEq/L 3.5-5.1 Below low normal Potassium Seru m [place] ([facility]) anion gap 8 mEq/L 8-16 Anion Gap [place] ([facility]) carbon dioxide level 32 mEq/L 21-32 Carbon Dioxide Level [place] ([facility]) calcium level 7.4 mg/dL 8.5-10.1 Below low normal Calcium Level AT [facility]) ID Date Data Source [id number] 09/09/2020 04:46:00 AM EST [place] ([facility]) Name Value Range Interpretation Code Description Data Natali rce(s) Supporting Document(s) white blood count 5.5 10 4.0-10.0 White Blood Count [place] ([facility]) red blood count 3.14 10 4.30-6.10 Below low normal Red Blood Coun t [place] ([facility]) hemoglobin 11.3 g/dL 13.5-17.5 Below low normal Hemoglobin [place] ( [facility]) hematocrit 33.8 % 42.0-52.0 Below low normal Hematocrit [place] ( [facility]) mean corpuscular HGB conc 33.4 g/dL 32.0-36.5 Mean Corpu scular HGB Conc [facility]) mean corpuscular volume 107.6 fL 80.0-96.0 Above high normal Mean Corpuscular Volume [place] ([facility]) mean corpuscular hemoglobin 36.0 pg 27.0-33.0 Above high no rmal Mean Corpuscular Hemoglobin [place] ([facility]) platelet count, automated 128 10 150-450 Below low jania l Platelet Count, Automated [place] ([facility]) red cell distribution width 14.6 % 11.5-14.5 Above high no rmal Red Cell Distribution Width [place] ([facility]) nucleated red blood cell % 0.0 % 0-0 Nucleated Red Blood Cell % [place] ([facility]) ID Date Data Source [id number] 09/09/2020 04:46:00 AM EST [place] ([facility]) Name Value Range Interpretation Code Description Data Natali rce(s) Supporting Document(s) magnesium level 1.8 mg/dL 1.8-2.4 [facility]) ID Date Data Source [id number] 09/09/2020 04:46:00 AM EST [place] ([facility]) Name Value Range Interpretation Code Description Data Natali rce(s) Supporting Document(s) T uptake 35 % 33-40 T Uptake [place] ([facility]) thyroxine (T4) 5.8 ug/dL 4.5-12.0 Thyroxine (T4) [place] ([facility]) free thyroxine index 2.0 % 1.4-3.8 Free Thyroxine Index [place] ([facility]) thyroid stimulating hormone 8.350 uIU/mL 0.358-3.740 Above high no rmal Thyroid Stimulating Hormone [place] ([facility]) ID Date Data Source [id number] 09/09/2020 04:46:00 AM EST [place] ([facility]) Name Value Range Interpretation Code Description Data Natali rce(s) Supporting Document(s) glucose, fasting 89 mg/dL 70-100 Glucose, Fasting AT [facility]) blood urea nitrogen 25 mg/dL 7-18 Above high normal Blood Ure a Nitrogen [place] ([facility]) creatinine for GFR 1.04 mg/dL 0.70-1.30 Creatinine for GF R [place] ([facility]) glomerular filtration rate > 60.0 >56 Glomerula r Filtration Rate [place] ([facility]) potassium serum 3.2 mEq/L 3.5-5.1 Below low normal Potassium Seru m [place] ([facility]) sodium level 133 mEq/L 136-145 Below low normal Sodium Level [place] ([facility]) carbon dioxide level 32 mEq/L 21-32 Carbon Dioxide Level [place] ([facility]) chloride level 93 mEq/L 98-107 Below low normal Chloride Level [place] ([facility]) anion gap 8 mEq/L 8-16 Anion Gap [place] ([facility]) calcium level 7.4 mg/dL 8.5-10.1 Below low normal Calcium Level AT [facility]) ID Date Data Source [id number] 09/09/2020 04:46:00 AM [facility]ENNIFER ENCIN[facility] ([facility]) Name Value Range Interpretation Code Description Data Natali rce(s) Supporting Document(s) white blood count 5.5 10 4.0-10.0 White Blood Count [place] ([facility]) red blood count 3.14 10 4.30-6.10 Below low normal Red Blood Coun t [place] ([facility]) hematocrit 33.8 % 42.0-52.0 Below low normal Hematocrit [place] ( [facility]) hemoglobin 11.3 g/dL 13.5-17.5 Below low normal Hemoglobin [place] ( [facility]) mean corpuscular hemoglobin 36.0 pg 27.0-33.0 Above high no rmal Mean Corpuscular Hemoglobin [place] ([facility]) mean corpuscular volume 107.6 fL 80.0-96.0 Above high normal Mean Corpuscular Volume [place] ([facility]) red cell distribution width 14.6 % 11.5-14.5 Above high no rmal Red Cell Distribution Width [place] ([facility]) mean corpuscular HGB conc 33.4 g/dL 32.0-36.5 Mean Corpu scular HGB Conc [place] ([facility]) nucleated red blood cell % 0.0 % 0-0 Nucleated Red Blood Cell % [place] ([facility]) platelet count, automated 128 10 150-450 Below low jania l Platelet Count, Automated [facility]) ID Date Data Source [id number] 09/08/2020 06:17:00 PM EST [place] ([facility]) Name Value Range Interpretation Code Description Data Natali rce(s) Supporting Document(s) MRSA PCR screen not detected negative MRSA PCR Screen AT [facility]) ID Date Data Source [id number] 09/08/2020 06:17:00 PM EST [place] ([facility]) Name Value Range Interpretation Code Description Data Natali rce(s) Supporting Document(s) MRSA PCR screen not detected negative MRSA PCR Screen AT [facility]) ID Date Data Source [id number] 09/08/2020 06:17:00 PM EST [place] ([facility]) Name Value Range Interpretation Code Description Data Natali rce(s) Supporting Document(s) MRSA PCR screen not detected negative MRSA PCR Screen AT [facility] ([facility]) ID Date Data Source [id number] 09/08/2020 09:29:00 AM [facility] Name Value Range Interpretation Code Description Data Natali rce(s) Supporting Document(s) digoxin level 0.7 NG/mL 0.5-2.0 Digoxin Level [facility]) ID Date Data Source [id number] 09/08/2020 09:29:00 AM EST [facility]) Name Value Range Interpretation Code Description Data Natali rce(s) Supporting Document(s) glucose, fasting 137 mg/dL 70-100 Above high normal Glucose, Fas ting [place] ([facility]) blood urea nitrogen 31 mg/dL 7-18 Above high normal Blood Ure a Nitrogen [place] ([facility]) creatinine for GFR 1.38 mg/dL 0.70-1.30 Above high normal Creatinine for GFR [place] ([facility]) glomerular filtration rate >56 Glomerula r Filtration Rate [place] ([facility]) sodium level 130 mEq/L 136-145 Below low normal Sodium Level AT[facility] NA ([facility]) potassium serum 4.6 mEq/L 3.5-5.1 Potassium Serum A[facility] NA ([facility]) carbon dioxide level 26 mEq/L 21-32 Carbon Dioxide Level [place] ([facility]) chloride level 92 mEq/L 98-107 Below low normal Chloride Level [place] ([facility]) anion gap 12 mEq/L 8-16 Anion Gap [place] ([facility]) calcium level 8.1 mg/dL 8.5-10.1 Below low normal Calcium Level AT [facility] ([facility]) ALT/SGPT 32 U/L 12-78 ALT/SGPT [place] ([facility]) AST/SGOT 86 U/L 7-37 Above high normal AST/SGOT [place] ([facility]) bilirubin,total 0.6 mg/dL 0.2-1.0 Bilirubin,total AT[facility] ([facility]) alkaline phosphatase 124 U/L 45-117 Above high normal Alkaline Phosphatase [place] ([facility]) total protein 6.1 gm/dL 6.4-8.2 Below low normal Total Protein AT [facility] ([facility]) albumin/globulin ratio Albumin/globu aldo Ratio [place] ([facility]) albumin 3.0 gm/dL 3.2-5.2 Below low normal Albumin [place] ( [facility]) ID Date Data Source [id number] 09/08/2020 09:29:00 AM EST [place] ([facility]) Name Value Range Interpretation Code Description Data Natali rce(s) Supporting Document(s) red blood count 3.49 10 4.30-6.10 Below low normal Red Blood Coun t [place] ([facility]) white blood count 11.3 10 4.0-10.0 Above high normal White Blood Count [place] ([facility]) hemoglobin 12.4 g/dL 13.5-17.5 Below low normal Hemoglobin [place] ( [facility]) mean corpuscular volume 107.7 fL 80.0-96.0 Above high normal Mean Corpuscular Volume [place] ([facility]) hematocrit 37.6 % 42.0-52.0 Below low normal Hematocrit [place] ( [facility]) mean corpuscular hemoglobin 35.5 pg 27.0-33.0 Above high no rmal Mean Corpuscular Hemoglobin [place] ([facility]) mean corpuscular HGB conc 33.0 g/dL 32.0-36.5 Mean Corpu scular HGB Conc [place] ([facility]) platelet count, automated 139 10 150-450 Below low jania l Platelet Count, Automated [place] ([facility]) red cell distribution width 14.5 % 11.5-14.5 Red Cell Distribution Width [place] ([facility]) nucleated red blood cell % 0.0 % 0-0 Nucleated Red Blood Cell % [place] ([facility]) ID Date Data Source [id number] 09/08/2020 09:29:00 AM EST [place] ([facility]) Name Value Range Interpretation Code Description Data Natali rce(s) Supporting Document(s) digoxin level 0.7 NG/mL 0.5-2.0 Digoxin Level [facility]) ID Date Data Source [id number] 09/08/2020 09:29:00 AM EST [place] ([facility]) Name Value Range Interpretation Code Description Data Natali rce(s) Supporting Document(s) creatinine for GFR 1.38 mg/dL 0.70-1.30 Above high normal Creatinine for GFR [place] ([facility]) blood urea nitrogen 31 mg/dL 7-18 Above high normal Blood Ure a Nitrogen [place] ([facility]) glucose, fasting 137 mg/dL 70-100 Above high normal Glucose, Fas ting [place] ([facility]) sodium level 130 mEq/L 136-145 Below low normal Sodium Level ATHE NA ([facility]) glomerular filtration rate >56 Glomerula r Filtration Rate [place] ([facility]) chloride level 92 mEq/L 98-107 Below low normal Chloride Level [facility] ([facility]) potassium serum 4.6 mEq/L 3.5-5.1 Potassium Serum AT[facility] NA ([facility]) anion gap 12 mEq/L 8-16 Anion Gap [place] ([facility]) carbon dioxide level 26 mEq/L 21-32 Carbon Dioxide Level [facility] ([facility]) calcium level 8.1 mg/dL 8.5-10.1 Below low normal Calcium Level AT [facility]) ALT/SGPT 32 U/L 12-78 ALT/SGPT [place] ([facility]) AST/SGOT 86 U/L 7-37 Above high normal AST/SGOT [place] ([facility]) bilirubin,total 0.6 mg/dL 0.2-1.0 Bilirubin,total ATHE ([facility]) alkaline phosphatase 124 U/L 45-117 Above high normal Alkaline Phosphatase CE ([facility]) albumin 3.0 gm/dL 3.2-5.2 Below low normal Albumin CE ( [facility]) albumin/globulin ratio Albumin/globu aldo Ratio CE ([facility]) total protein 6.1 gm/dL 6.4-8.2 Below low normal Total Protein AT [facility] ([facility]) ID Date Data Source [id number] 09/08/2020 09:29:00 AM EST [place] ([facility]) Name Value Range Interpretation Code Description Data Natali rce(s) Supporting Document(s) white blood count 11.3 10 4.0-10.0 Above high normal White Blood Count CE ([facility]) red blood count 3.49 10 4.30-6.10 Below low normal Red Blood Coun t CE ([facility]) hemoglobin 12.4 g/dL 13.5-17.5 Below low normal Hemoglobin CE ( [facility]) mean corpuscular hemoglobin 35.5 pg 27.0-33.0 Above high no rmal Mean Corpuscular Hemoglobin CE ([facility]) hematocrit 37.6 % 42.0-52.0 Below low normal Hematocrit CE ( [facility]) mean corpuscular volume 107.7 fL 80.0-96.0 Above high normal Mean Corpuscular Volume CE ([facility]) mean corpuscular HGB conc 33.0 g/dL 32.0-36.5 Mean Corpu scular HGB Conc CE ([facility]) red cell distribution width 14.5 % 11.5-14.5 Red Cell Distribution Width CE ([facility]) platelet count, automated 139 10 150-450 Below low jania l Platelet Count, Automated CE ([facility]) nucleated red blood cell % 0.0 % 0-0 Nucleated Red Blood Cell % CE ([facility]) ID Date Data Source [id number] 09/08/2020 09:29:00 AM EST CE ([facility]) Name Value Range Interpretation Code Description Data Natali rce(s) Supporting Document(s) digoxin level 0.7 NG/mL 0.5-2.0 Digoxin Level [place] ( [facility]) ID Date Data Source [id number] 09/08/2020 09:29:00 AM EST CE ([facility]) Name Value Range Interpretation Code Description Data Natali rce(s) Supporting Document(s) glucose, fasting 137 mg/dL 70-100 Above high normal Glucose, Fas ting CE ([facility]) blood urea nitrogen 31 mg/dL 7-18 Above high normal Blood Ure a Nitrogen CE ([facility]) sodium level 130 mEq/L 136-145 Below low normal Sodium Level [place] ([facility]) creatinine for GFR 1.38 mg/dL 0.70-1.30 Above high normal Creatinine for GFR CE ([facility]) glomerular filtration rate >56 Glomerula r Filtration Rate CE ([facility]) potassium serum 4.6 mEq/L 3.5-5.1 Potassium Serum ATHE NA ([facility]) carbon dioxide level 26 mEq/L 21-32 Carbon Dioxide Level CE ([facility]) chloride level 92 mEq/L 98-107 Below low normal Chloride Level CE ([facility]) calcium level 8.1 mg/dL 8.5-10.1 Below low normal Calcium Level AT [facility]) anion gap 12 mEq/L 8-16 Anion Gap CE ([facility]) AST/SGOT 86 U/L 7-37 Above high normal AST/SGOT CE ([facility]) ALT/SGPT 32 U/L 12-78 ALT/SGPT CE ([facility]) bilirubin,total 0.6 mg/dL 0.2-1.0 Bilirubin,total ATHE NA ([facility]) alkaline phosphatase 124 U/L 45-117 Above high normal Alkaline Phosphatase CE ([facility]) total protein 6.1 gm/dL 6.4-8.2 Below low normal Total Protein AT [place] ([facility]) albumin 3.0 gm/dL 3.2-5.2 Below low normal Albumin CE ( [facility]) albumin/globulin ratio Albumin/globu aldo Ratio CE ([facility]) ID Date Data Source [id number] 09/08/2020 09:29:00 AM EST [place] ([facility]) Name Value Range Interpretation Code Description Data Natali rce(s) Supporting Document(s) white blood count 11.3 10 4.0-10.0 Above high normal White Blood Count CE ([facility]) red blood count 3.49 10 4.30-6.10 Below low normal Red Blood Coun t CE ([facility]) hematocrit 37.6 % 42.0-52.0 Below low normal Hematocrit CE ( [facility]) hemoglobin 12.4 g/dL 13.5-17.5 Below low normal Hemoglobin [place] ( [facility]) mean corpuscular volume 107.7 fL 80.0-96.0 Above high normal Mean Corpuscular Volume CE ([facility]) mean corpuscular hemoglobin 35.5 pg 27.0-33.0 Above high no rmal Mean Corpuscular Hemoglobin CE ([facility]) mean corpuscular HGB conc 33.0 g/dL 32.0-36.5 Mean Corpu scular HGB Conc CE ([facility]) red cell distribution width 14.5 % 11.5-14.5 Red Cell Distribution Width [place] ([facility]) nucleated red blood cell % 0.0 % 0-0 Nucleated Red Blood Cell % CE ([facility]) platelet count, automated 139 10 150-450 Below low jania l Platelet Count, Automated [place] ([facility]) ID Date Data Source [id number] 09/08/2020 07:54:00 AM EST [place] ([facility]) Name Value Range Interpretation Code Description Data Natali rce(s) Supporting Document(s) bedside glucose 166 mg/dL 70-105 Above high normal Bedside Gluco se CE ([facility]) ID Date Data Source [id number] 09/08/2020 07:54:00 AM EST [place] ([facility]) Name Value Range Interpretation Code Description Data Natali rce(s) Supporting Document(s) bedside glucose 166 mg/dL 70-105 Above high normal Bedside Gluco se CE ([facility]) ID Date Data Source [id number] 09/08/2020 07:54:00 AM EST CE ([facility]) Name Value Range Interpretation Code Description Data Natali rce(s) Supporting Document(s) bedside glucose 166 mg/dL 70-105 Above high normal Bedside Gluco se CE ([facility]) ID Date Data Source [id number] 09/07/2020 10:21:00 PM EST CE ([facility]) Name Value Range Interpretation Code Description Data Natali rce(s) Supporting Document(s) bedside glucose 220 mg/dL 70-105 Above high normal Bedside Gluco se CE ([facility]) ID Date Data Source [id number] 09/07/2020 10:21:00 PM EST [place] ([facility]) Name Value Range Interpretation Code Description Data Natali rce(s) Supporting Document(s) bedside glucose 220 mg/dL 70-105 Above high normal Bedside Gluco se CE ([facility]) ID Date Data Source [id number] 09/07/2020 10:21:00 PM EST [place] ([facility]) Name Value Range Interpretation Code Description Data Natali rce(s) Supporting Document(s) bedside glucose 220 mg/dL 70-105 Above high normal Bedside Gluco se [place] ([facility]) ID Date Data Source [id number] 09/07/2020 07:51:00 PM EST CE ([facility]) Name Value Range Interpretation Code Description Data Natali rce(s) Supporting Document(s) blood urea nitrogen 25 mg/dL 7-18 Above high normal Blood Ure a Nitrogen CE ([facility]) glucose, fasting 154 mg/dL 70-100 Above high normal Glucose, Fas ting [place] ([facility]) creatinine for GFR 1.19 mg/dL 0.70-1.30 Creatinine for GF R [place] ([facility]) glomerular filtration rate > 60.0 >56 Glomerula r Filtration Rate [place] ([facility]) sodium level 129 mEq/L 136-145 Below low normal Sodium Level A[place] NA ([facility]) potassium serum 4.8 mEq/L 3.5-5.1 Potassium Serum ATHE NA ([facility]) chloride level 93 mEq/L 98-107 Below low normal Chloride Level [place] ([facility]) carbon dioxide level 25 mEq/L 21-32 Carbon Dioxide Level [place] ([facility]) anion gap 11 mEq/L 8-16 Anion Gap CE ([facility]) calcium level 7.9 mg/dL 8.5-10.1 Below low normal Calcium Level AT [place] ([facility]) ID Date Data Source [id number] 09/07/2020 07:51:00 PM EST CE ([facility]) Name Value Range Interpretation Code Description Data Natali rce(s) Supporting Document(s) creatinine for GFR 1.19 mg/dL 0.70-1.30 Creatinine for GF R CE ([facility]) glucose, fasting 154 mg/dL 70-100 Above high normal Glucose, Fas ting [place] ([facility]) glomerular filtration rate > 60.0 >56 Glomerula r Filtration Rate CE ([facility]) blood urea nitrogen 25 mg/dL 7-18 Above high normal Blood Ure a Nitrogen CE ([facility]) sodium level 129 mEq/L 136-145 Below low normal Sodium Level ATHE NA ([facility]) potassium serum 4.8 mEq/L 3.5-5.1 Potassium Serum ATHE NA ([facility]) chloride level 93 mEq/L 98-107 Below low normal Chloride Level CE ([facility]) anion gap 11 mEq/L 8-16 Anion Gap CE ([facility]) carbon dioxide level 25 mEq/L 21-32 Carbon Dioxide Level CE ([facility]) calcium level 7.9 mg/dL 8.5-10.1 Below low normal Calcium Level AT [facility]) ID Date Data Source [id number] 09/07/2020 07:51:00 PM EST [place] ([facility]) Name Value Range Interpretation Code Description Data Natali rce(s) Supporting Document(s) glucose, fasting 154 mg/dL 70-100 Above high normal Glucose, Fas ting CE ([facility]) sodium level 129 mEq/L 136-145 Below low normal Sodium Level AT[place] NA ([facility]) blood urea nitrogen 25 mg/dL 7-18 Above high normal Blood Ure a Nitrogen CE ([facility]) creatinine for GFR 1.19 mg/dL 0.70-1.30 Creatinine for GF R CE ([facility]) glomerular filtration rate > 60.0 >56 Glomerula r Filtration Rate CE ([facility]) chloride level 93 mEq/L 98-107 Below low normal Chloride Level CE ([facility]) potassium serum 4.8 mEq/L 3.5-5.1 Potassium Serum ATHE NA ([facility]) carbon dioxide level 25 mEq/L 21-32 Carbon Dioxide Level [place] ([facility]) calcium level 7.9 mg/dL 8.5-10.1 Below low normal Calcium Level AT [facility] ([facility]) anion gap 11 mEq/L 8-16 Anion Gap CE ([facility]) ID Date Data Source [id number] 09/07/2020 03:35:00 PM EST [place] ([facility]) Name Value Range Interpretation Code Description Data Natali rce(s) Supporting Document(s) bedside glucose 137 mg/dL 70-105 Above high normal Bedside Gluco se CE ([facility]) ID Date Data Source [id number] 09/07/2020 03:35:00 PM EST [place] ([facility]) Name Value Range Interpretation Code Description Data Natali rce(s) Supporting Document(s) bedside glucose 137 mg/dL 70-105 Above high normal Bedside Gluco se CE ([facility]) ID Date Data Source [id number] 09/07/2020 03:35:00 PM EST CE ([facility]) Name Value Range Interpretation Code Description Data Natali rce(s) Supporting Document(s) bedside glucose 137 mg/dL 70-105 Above high normal Bedside Gluco se CE ([facility]) ID Date Data Source [id number] 09/07/2020 10:20:00 AM EST CE ([facility]) Name Value Range Interpretation Code Description Data Natali rce(s) Supporting Document(s) bedside glucose 120 mg/dL 70-105 Above high normal Bedside Gluco se CE ([facility]) ID Date Data Source [id number] 09/07/2020 10:20:00 AM EST [place] ([facility]) Name Value Range Interpretation Code Description Data Natali rce(s) Supporting Document(s) bedside glucose 120 mg/dL 70-105 Above high normal Bedside Gluco se CE ([facility]) ID Date Data Source [id number] 09/07/2020 10:20:00 AM EST CE ([facility]) Name Value Range Interpretation Code Description Data Natali rce(s) Supporting Document(s) bedside glucose 120 mg/dL 70-105 Above high normal Bedside Gluco se CE ([facility]) ID Date Data Source [id number] 09/07/2020 05:27:00 AM EST CE ([facility]) Name Value Range Interpretation Code Description Data Natali rce(s) Supporting Document(s) folate > 24.0 >5.4 Folate CE ([facility]) ID Date Data Source [id number] 09/07/2020 05:27:00 AM EST [place] ([facility]) Name Value Range Interpretation Code Description Data Natali rce(s) Supporting Document(s) vitamin B12 level 754 pg/mL 247-911 Vitamin B12 Level CE ([facility]) ID Date Data Source [id number] 09/07/2020 05:27:00 AM EST CE ([facility]) Name Value Range Interpretation Code Description Data Natali rce(s) Supporting Document(s) osmolality serum 276 mOsm/kg 275-295 Osmolality Serum A [place] ([facility]) ID Date Data Source [id number] 09/07/2020 05:27:00 AM EST CE ([facility]) Name Value Range Interpretation Code Description Data Natali rce(s) Supporting Document(s) magnesium level 2.3 mg/dL 1.8-2.4 Magnesium Level ATHE NA ([facility]) ID Date Data Source [id number] 09/07/2020 05:27:00 AM EST CE ([facility]) Name Value Range Interpretation Code Description Data Natali rce(s) Supporting Document(s) CPK creatine phosphokinase 690 U/L 39-308 Above high nor mal CPK Creatine Phosphokinase CE ([facility]) ID Date Data Source [id number] 09/07/2020 05:27:00 AM EST [place] ([facility]) Name Value Range Interpretation Code Description Data Natali rce(s) Supporting Document(s) glucose, fasting 89 mg/dL 70-100 Glucose, Fasting AT [facility] ([facility]) blood urea nitrogen 20 mg/dL 7-18 Above high normal Blood Ure a Nitrogen CE ([facility]) glomerular filtration rate > 60.0 >56 Glomerula r Filtration Rate [place] ([facility]) creatinine for GFR 0.95 mg/dL 0.70-1.30 Creatinine for GF R [place] ([facility]) sodium level 128 mEq/L 136-145 Below low normal Sodium Level ATHE NA ([facility]) potassium serum 5.2 mEq/L 3.5-5.1 Above high normal Potassium Ser um [place] ([facility]) chloride level 95 mEq/L 98-107 Below low normal Chloride Level [place] ([facility]) anion gap 16 mEq/L 8-16 Anion Gap [place] ([facility]) carbon dioxide level 17 mEq/L 21-32 Below low normal Carbon Di oxide Level [place] ([facility]) AST/SGOT 69 U/L 7-37 Above high normal AST/SGOT [place] ([facility]) calcium level 7.8 mg/dL 8.5-10.1 Below low normal Calcium Level AT [facility]) alkaline phosphatase 125 U/L 45-117 Above high normal Alkaline Phosphatase [place] ([facility]) ALT/SGPT 24 U/L 12-78 ALT/SGPT [place] ([facility]) total protein 6.1 gm/dL 6.4-8.2 Below low normal Total Protein AT [facility]) bilirubin,total 1.2 mg/dL 0.2-1.0 Above high normal Bilirubin,tot al [facility]) albumin 2.8 gm/dL 3.2-5.2 Below low normal Albumin [place] ( [facility]) albumin/globulin ratio Albumin/globu aldo Ratio [facility]) ID Date Data Source [id number] 09/07/2020 05:27:00 AM EST CE ([facility]) Name Value Range Interpretation Code Description Data Natali rce(s) Supporting Document(s) white blood count 5.4 10 4.0-10.0 White Blood Count EC ([facility]) red blood count 3.54 10 4.30-6.10 Below low normal Red Blood Coun t CE ([facility]) hemoglobin 12.7 g/dL 13.5-17.5 Below low normal Hemoglobin CE ( [facility]) mean corpuscular volume 109.9 fL 80.0-96.0 Above high normal Mean Corpuscular Volume CE ([facility]) hematocrit 38.9 % 42.0-52.0 Below low normal Hematocrit CE ( [facility]) mean corpuscular hemoglobin 35.9 pg 27.0-33.0 Above high no rmal Mean Corpuscular Hemoglobin CE ([facility]) mean corpuscular HGB conc 32.6 g/dL 32.0-36.5 Mean Corpu scular HGB Conc CE ([facility]) platelet count, automated 123 10 150-450 Below low jania l Platelet Count, Automated [place] ([facility]) red cell distribution width 14.5 % 11.5-14.5 Red Cell Distribution Width CE ([facility]) nucleated red blood cell % 0.0 % 0-0 Nucleated Red Blood Cell % CE ([facility]) ID Date Data Source [id number] 09/07/2020 05:27:00 AM EST CE ([facility]) Name Value Range Interpretation Code Description Data Natali rce(s) Supporting Document(s) folate > 24.0 >5.4 Folate CE ([facility]) ID Date Data Source [id number] 09/07/2020 05:27:00 AM EST CE ([facility]) Name Value Range Interpretation Code Description Data Natali rce(s) Supporting Document(s) vitamin B12 level 754 pg/mL 247-911 Vitamin B12 Level CE ([facility]) ID Date Data Source [id number] 09/07/2020 05:27:00 AM EST CE ([facility]) Name Value Range Interpretation Code Description Data Natali rce(s) Supporting Document(s) osmolality serum 276 mOsm/kg 275-295 Osmolality Serum A [place] ([facility]) ID Date Data Source [id number] 09/07/2020 05:27:00 AM EST [place] ([facility]) Name Value Range Interpretation Code Description Data Natali rce(s) Supporting Document(s) magnesium level 2.3 mg/dL 1.8-2.4 Magnesium Level AT[facility] ([facility]) ID Date Data Source [id number] 09/07/2020 05:27:00 AM EST [place] ([facility]) Name Value Range Interpretation Code Description Data Natali rce(s) Supporting Document(s) CPK creatine phosphokinase 690 U/L 39-308 Above high nor mal CPK Creatine Phosphokinase CE ([facility]) ID Date Data Source [id number] 09/07/2020 05:27:00 AM EST [place] ([facility]) Name Value Range Interpretation Code Description Data Natali rce(s) Supporting Document(s) glucose, fasting 89 mg/dL 70-100 Glucose, Fasting AT [place] ([facility]) blood urea nitrogen 20 mg/dL 7-18 Above high normal Blood Ure a Nitrogen CE ([facility]) creatinine for GFR 0.95 mg/dL 0.70-1.30 Creatinine for GF R CE ([facility]) sodium level 128 mEq/L 136-145 Below low normal Sodium Level ATHE NA ([facility]) potassium serum 5.2 mEq/L 3.5-5.1 Above high normal Potassium Ser um CE ([facility]) glomerular filtration rate > 60.0 >56 Glomerula r Filtration Rate [place] ([facility]) carbon dioxide level 17 mEq/L 21-32 Below low normal Carbon Di oxide Level [place] ([facility]) chloride level 95 mEq/L 98-107 Below low normal Chloride Level [place] ([facility]) anion gap 16 mEq/L 8-16 Anion Gap [place] ([facility]) ALT/SGPT 24 U/L 12-78 ALT/SGPT [place] ([facility]) AST/SGOT 69 U/L 7-37 Above high normal AST/SGOT [place] ([facility]) calcium level 7.8 mg/dL 8.5-10.1 Below low normal Calcium Level AT [facility]) alkaline phosphatase 125 U/L 45-117 Above high normal Alkaline Phosphatase [place] ([facility]) bilirubin,total 1.2 mg/dL 0.2-1.0 Above high normal Bilirubin,tot al [facility]) total protein 6.1 gm/dL 6.4-8.2 Below low normal Total Protein AT [facility]) albumin 2.8 gm/dL 3.2-5.2 Below low normal Albumin [place] ( [facility]) albumin/globulin ratio Albumin/globu aldo Ratio [place] ([facility]) ID Date Data Source [id number] 09/07/2020 05:27:00 AM EST [place] ([facility]) Name Value Range Interpretation Code Description Data Natali rce(s) Supporting Document(s) red blood count 3.54 10 4.30-6.10 Below low normal Red Blood Coun t [place] ([facility]) white blood count 5.4 10 4.0-10.0 White Blood Count [place] ([facility]) hematocrit 38.9 % 42.0-52.0 Below low normal Hematocrit [place] ( [facility]) hemoglobin 12.7 g/dL 13.5-17.5 Below low normal Hemoglobin [place] ( [facility]) mean corpuscular hemoglobin 35.9 pg 27.0-33.0 Above high no rmal Mean Corpuscular Hemoglobin CE ([facility]) mean corpuscular volume 109.9 fL 80.0-96.0 Above high normal Mean Corpuscular Volume CE ([facility]) red cell distribution width 14.5 % 11.5-14.5 Red Cell Distribution Width CE ([facility]) platelet count, automated 123 10 150-450 Below low jnaia l Platelet Count, Automated [facility] ([facility]) mean corpuscular HGB conc 32.6 g/dL 32.0-36.5 Mean Corpu scular HGB Conc CE ([facility]) nucleated red blood cell % 0.0 % 0-0 Nucleated Red Blood Cell % CE ([facility]) ID Date Data Source [id number] 09/07/2020 05:27:00 AM EST [place] ([facility]) Name Value Range Interpretation Code Description Data Natali rce(s) Supporting Document(s) folate > 24.0 >5.4 Folate CE ([facility]) ID Date Data Source [id number] 09/07/2020 05:27:00 AM EST [place] ([facility]) Name Value Range Interpretation Code Description Data Natali rce(s) Supporting Document(s) vitamin B12 level 754 pg/mL 247-911 Vitamin B12 Level CE ([facility]) ID Date Data Source [id number] 09/07/2020 05:27:00 AM EST CE ([facility]) Name Value Range Interpretation Code Description Data Natali rce(s) Supporting Document(s) osmolality serum 276 mOsm/kg 275-295 Osmolality Serum A THENA ([facility]) ID Date Data Source [id number] 09/07/2020 05:27:00 AM EST CE ([facility]) Name Value Range Interpretation Code Description Data Natali rce(s) Supporting Document(s) magnesium level 2.3 mg/dL 1.8-2.4 Magnesium Level ATHE ([facility]) ID Date Data Source [id number] 09/07/2020 05:27:00 AM EST CE ([facility]) Name Value Range Interpretation Code Description Data Natali rce(s) Supporting Document(s) CPK creatine phosphokinase 690 U/L 39-308 Above high nor mal CPK Creatine Phosphokinase [place] ([facility]) ID Date Data Source [id number] 09/07/2020 05:27:00 AM EST [place] ([facility]) Name Value Range Interpretation Code Description Data Natali rce(s) Supporting Document(s) blood urea nitrogen 20 mg/dL 7-18 Above high normal Blood Ure a Nitrogen [place] ([facility]) glucose, fasting 89 mg/dL 70-100 Glucose, Fasting AT [facility]) creatinine for GFR 0.95 mg/dL 0.70-1.30 Creatinine for GF R [place] ([facility]) glomerular filtration rate > 60.0 >56 Glomerula r Filtration Rate [place] ([facility]) sodium level 128 mEq/L 136-145 Below low normal Sodium Level ATHE NA ([facility]) carbon dioxide level 17 mEq/L 21-32 Below low normal Carbon Di oxide Level CE ([facility]) chloride level 95 mEq/L 98-107 Below low normal Chloride Level CE ([facility]) potassium serum 5.2 mEq/L 3.5-5.1 Above high normal Potassium Ser um CE ([facility]) anion gap 16 mEq/L 8-16 Anion Gap [place] ([facility]) calcium level 7.8 mg/dL 8.5-10.1 Below low normal Calcium Level AT [facility]) AST/SGOT 69 U/L 7-37 Above high normal AST/SGOT [place] ([facility]) ALT/SGPT 24 U/L 12-78 ALT/SGPT [place] ([facility]) bilirubin,total 1.2 mg/dL 0.2-1.0 Above high normal Bilirubin,tot al [facility]) alkaline phosphatase 125 U/L 45-117 Above high normal Alkaline Phosphatase [facility]) total protein 6.1 gm/dL 6.4-8.2 Below low normal Total Protein AT ROXANA [facility]) albumin 2.8 gm/dL 3.2-5.2 Below low normal Albumin [place] ( [facility]) albumin/globulin ratio Albumin/globu aldo Ratio [facility]) ID Date Data Source [id number] 09/07/2020 05:27:00 AM EST [facility]) Name Value Range Interpretation Code Description Data Natali rce(s) Supporting Document(s) red blood count 3.54 10 4.30-6.10 Below low normal Red Blood Coun t [facility]) hemoglobin 12.7 g/dL 13.5-17.5 Below low normal Hemoglobin [place] ( [facility]) white blood count 5.4 10 4.0-10.0 White Blood Count [facility]) mean corpuscular hemoglobin 35.9 pg 27.0-33.0 Above high no rmal Mean Corpuscular Hemoglobin [place] ([facility]) mean corpuscular volume 109.9 fL 80.0-96.0 Above high normal Mean Corpuscular Volume [place] ([facility]) hematocrit 38.9 % 42.0-52.0 Below low normal Hematocrit [facility]) platelet count, automated 123 10 150-450 Below low jania l Platelet Count, Automated [facility]) red cell distribution width 14.5 % 11.5-14.5 Red Cell Distribution Width [facility]) mean corpuscular HGB conc 32.6 g/dL 32.0-36.5 Mean Corpu scular HGB Conc [facility]) nucleated red blood cell % 0.0 % 0-0 Nucleated Red Blood Cell % [facility]) ID Date Data Source [id number] 09/07/2020 04:09:00 AM EST CE ([facility]) Name Value Range Interpretation Code Description Data Natali rce(s) Supporting Document(s) bedside glucose 91 mg/dL 70-105 Bedside Glucose ATHValery NA ([facility]) ID Date Data Source [id number] 09/07/2020 04:09:00 AM EST CE ([facility]) Name Value Range Interpretation Code Description Data Natali rce(s) Supporting Document(s) bedside glucose 91 mg/dL 70-105 Bedside Glucose ATHValery NA ([facility]) ID Date Data Source [id number] 09/07/2020 04:09:00 AM EST CE ([facility]) Name Value Range Interpretation Code Description Data Natali rce(s) Supporting Document(s) bedside glucose 91 mg/dL 70-105 Bedside Glucose ATHValery [place] ([facility]) ID Date Data Source [id number] 09/07/2020 02:03:00 AM EST CE ([facility]) Name Value Range Interpretation Code Description Data Natali rce(s) Supporting Document(s) bedside glucose 61 mg/dL 70-105 Below low normal Bedside Glucos e CE ([facility]) ID Date Data Source [id number] 09/07/2020 02:03:00 AM EST CE ([facility]) Name Value Range Interpretation Code Description Data Natali rce(s) Supporting Document(s) bedside glucose 61 mg/dL 70-105 Below low normal Bedside Glucos e CE ([facility]) ID Date Data Source [id number] 09/07/2020 02:03:00 AM EST CE ([facility]) Name Value Range Interpretation Code Description Data Natali rce(s) Supporting Document(s) bedside glucose 61 mg/dL 70-105 Below low normal Bedside Glucos e CE ([facility]) ID Date Data Source [id number] 09/07/2020 02:01:00 AM EST CE ([facility]) Name Value Range Interpretation Code Description Data Natali rce(s) Supporting Document(s) lactic acid level, lactate 2.6 mmol/L 0.4-2.0 Above high nor mal Lactic Acid Level, Lactate CE ([facility]) ID Date Data Source [id number] 09/07/2020 02:01:00 AM EST CE ([facility]) Name Value Range Interpretation Code Description Data Natali rce(s) Supporting Document(s) lactic acid level, lactate 2.6 mmol/L 0.4-2.0 Above high nor mal Lactic Acid Level, Lactate CE ([facility]) ID Date Data Source [id number] 09/07/2020 02:01:00 AM EST CE ([facility]) Name Value Range Interpretation Code Description Data Natali rce(s) Supporting Document(s) lactic acid level, lactate 2.6 mmol/L 0.4-2.0 Above high nor mal Lactic Acid Level, Lactate CE ([facility]) ID Date Data Source [id number] 09/07/2020 01:16:00 AM EST CE ([facility]) Name Value Range Interpretation Code Description Data Natali rce(s) Supporting Document(s) bedside glucose 57 mg/dL 70-105 Below low normal Bedside Glucos e CE ([facility]) ID Date Data Source [id number] 09/07/2020 01:16:00 AM EST CE ([facility]) Name Value Range Interpretation Code Description Data Natali rce(s) Supporting Document(s) bedside glucose 57 mg/dL 70-105 Below low normal Bedside Glucos e CE ([facility]) ID Date Data Source [id number] 09/07/2020 01:16:00 AM EST CE ([facility]) Name Value Range Interpretation Code Description Data Natali rce(s) Supporting Document(s) bedside glucose 57 mg/dL 70-105 Below low normal Bedside Glucos valery [place] ([facility]) ID Date Data Source [id number] 09/07/2020 12:47:00 AM EST CE ([facility]) Name Value Range Interpretation Code Description Data Natali rce(s) Supporting Document(s) venous pH 7.294 units 7.330-7.430 Below low normal Venous pH CE ([facility]) venous partial pressure CO2 37.2 mmHg 38.0-50.0 Below low nor mal Venous Partial Pressure CO2 [place] ([facility]) venous partial pressure O2 57.0 mmHg 30.0-50.0 Above high nor mal Venous Partial Pressure O2 CE ([facility]) venous total CO2 18.8 mEq/L 24.0-28.0 Below low normal Venous Total CO2 CE ([facility]) venous HCO3 17.6 mEq/L 23.0-27.0 Below low normal Venous HCO3 CE ([facility]) venous base excess -2.0-2.0 Below low normal Venous Base Excess CE ([facility]) venous standard HCO3 17.7 mEq/L Venous Standard HCO3 CE ([facility]) venous O2 saturation 84.1 % 60.0-80.0 Above high normal Venous O 2 Saturation [place] ([facility]) ID Date Data Source [id number] 09/07/2020 12:47:00 AM EST CE ([facility]) Name Value Range Interpretation Code Description Data Natali rce(s) Supporting Document(s) venous pH 7.294 units 7.330-7.430 Below low normal Venous pH CE ([facility]) venous partial pressure CO2 37.2 mmHg 38.0-50.0 Below low nor mal Venous Partial Pressure CO2 CE ([facility]) venous partial pressure O2 57.0 mmHg 30.0-50.0 Above high nor mal Venous Partial Pressure O2 CE ([facility]) venous HCO3 17.6 mEq/L 23.0-27.0 Below low normal Venous HCO3 CE ([facility]) venous total CO2 18.8 mEq/L 24.0-28.0 Below low normal Venous Total CO2 CE ([facility]) venous O2 saturation 84.1 % 60.0-80.0 Above high normal Venous O 2 Saturation CE ([facility]) venous standard HCO3 17.7 mEq/L Venous Standard HCO3 CE ([facility]) venous base excess -2.0-2.0 Below low normal Venous Base Excess CE ([facility]) ID Date Data Source [id number] 09/07/2020 12:47:00 AM EST CE ([facility]) Name Value Range Interpretation Code Description Data Natali rce(s) Supporting Document(s) venous pH 7.294 units 7.330-7.430 Below low normal Venous pH CE ([facility]) venous partial pressure CO2 37.2 mmHg 38.0-50.0 Below low nor mal Venous Partial Pressure CO2 CE ([facility]) venous total CO2 18.8 mEq/L 24.0-28.0 Below low normal Venous Total CO2 CE ([facility]) venous partial pressure O2 57.0 mmHg 30.0-50.0 Above high nor mal Venous Partial Pressure O2 CE ([facility]) venous base excess -2.0-2.0 Below low normal Venous Base Excess CE ([facility]) venous standard HCO3 17.7 mEq/L Venous Standard HCO3 CE ([facility]) venous HCO3 17.6 mEq/L 23.0-27.0 Below low normal Venous HCO3 CE ([facility]) venous O2 saturation 84.1 % 60.0-80.0 Above high normal Venous O 2 Saturation CE ([facility]) ID Date Data Source [id number] 09/06/2020 09:46:00 PM EST CE ([facility]) Name Value Range Interpretation Code Description Data Natali rce(s) Supporting Document(s) sodium,random urine < 10 Sodium,random Ur ine CE ([facility]) ID Date Data Source [id number] 09/06/2020 09:46:00 PM EST CE ([facility]) Name Value Range Interpretation Code Description Data Natali rce(s) Supporting Document(s) osmolality urine 503 mOsm/kg 500-800 Osmolality Urine A [place] ([facility]) ID Date Data Source [id number] 09/06/2020 09:46:00 PM EST EC ([facility]) Name Value Range Interpretation Code Description Data Natali rce(s) Supporting Document(s) appearance, urine cloudy clear Above high normal Appearance, Urine CE ([facility]) pH,urine 5.0 units 5.0-9.0 pH,urine CE ([facility]) color, urine eduardo yellow Color, Urine CE ([facility]) protein, urine auto 2+ negative Above high normal Protein, Urine Auto CE ([facility]) glucose, urine (UA) auto negative negative Glucose, Ur ine (UA) Auto CE ([facility]) specific gravity urine auto 1.002-1.035 Specifi c [place] Urine Auto CE ([facility]) ketone, urine auto 1+ negative Above high normal Ketone, Ur ine Auto CE ([facility]) urobilinogen, urine auto 4.0 mg/dL 0.0-2.0 Above high jania l Urobilinogen, Urine Auto CE ([facility]) leukocyte esterase, urine auto 2+ negative Above high normal Leukocyte Esterase, Urine Auto CE ([facility]) nitrite, urine auto negative negative Nitrite, Urine A uto CE ([facility]) bilirubin, urine auto 1+ negative Above high normal Bilirub in, Urine Auto CE ([facility]) blood, urine blood negative negative Blood, Urine Bloo d CE ([facility]) WBC, urine auto 38 /hpf 0-3 Above high normal WBC, Urine Au to CE ([facility]) RBC, urine auto 6 /hpf 0-3 Above high normal RBC, Urine Au to CE ([facility]) squamous epithelial cell ur AU 2 /hpf 0-6 Squam ous Epithelial Cell Ur AU CE ([facility]) bacteria, urine auto negative negative Bacteria, Urine Auto CE ([facility]) hyaline cast, urine auto 49 /lpf 0-1 Hyaline Gregory t, Urine Auto EC ([facility]) mucus, urine small negative Mucus, Urine CE ([facility]) ID Date Data Source [id number] 09/06/2020 09:46:00 PM EST CE ([facility]) Name Value Range Interpretation Code Description Data Natali rce(s) Supporting Document(s) sodium,random urine < 10 Sodium,random Ur ine CE ([facility]) ID Date Data Source [id number] 09/06/2020 09:46:00 PM EST CE ([facility]) Name Value Range Interpretation Code Description Data Natali rce(s) Supporting Document(s) osmolality urine 503 mOsm/kg 500-800 Osmolality Urine A THENA ([facility]) ID Date Data Source [id number] 09/06/2020 09:46:00 PM EST CE ([facility]) Name Value Range Interpretation Code Description Data Natali rce(s) Supporting Document(s) color, urine eduardo yellow Color, Urine CE ([facility]) appearance, urine cloudy clear Above high normal Appearance, Urine CE ([facility]) pH,urine 5.0 units 5.0-9.0 pH,urine CE ([facility]) glucose, urine (UA) auto negative negative Glucose, Ur ine (UA) Auto CE ([facility]) protein, urine auto 2+ negative Above high normal Protein, Urine Auto CE ([facility]) ketone, urine auto 1+ negative Above high normal Ketone, Ur ine Auto CE ([facility]) urobilinogen, urine auto 4.0 mg/dL 0.0-2.0 Above high jania l Urobilinogen, Urine Auto CE ([facility]) specific gravity urine auto 1.002-1.035 Specifi c [place] Urine Auto CE ([facility]) leukocyte esterase, urine auto 2+ negative Above high normal Leukocyte Esterase, Urine Auto CE ([facility]) nitrite, urine auto negative negative Nitrite, Urine A uto CE ([facility]) blood, urine blood negative negative Blood, Urine Bloo d CE ([facility]) bilirubin, urine auto 1+ negative Above high normal Bilirub in, Urine Auto CE ([facility]) mucus, urine small negative Mucus, Urine CE (No [facility]) WBC, urine auto 38 /hpf 0-3 Above high normal WBC, Urine Au to CE ([facility]) bacteria, urine auto negative negative Bacteria, Urine Auto CE ([facility]) squamous epithelial cell ur AU 2 /hpf 0-6 Squam ous Epithelial Cell Ur AU CE ([facility]) RBC, urine auto 6 /hpf 0-3 Above high normal RBC, Urine Au to CE ([facility]) hyaline cast, urine auto 49 /lpf 0-1 Hyaline Gregory t, Urine Auto CE ([facility]) ID Date Data Source [id number] 09/06/2020 09:46:00 PM EST CE ([facility]) Name Value Range Interpretation Code Description Data Natali rce(s) Supporting Document(s) sodium,random urine < 10 Sodium,random Ur ine CE ([facility]) ID Date Data Source [id number] 09/06/2020 09:46:00 PM EST CE ([facility]) Name Value Range Interpretation Code Description Data Natali rce(s) Supporting Document(s) osmolality urine 503 mOsm/kg 500-800 Osmolality Urine A THENA ([facility]) ID Date Data Source [id number] 09/06/2020 09:46:00 PM EST CE ([facility]) Name Value Range Interpretation Code Description Data [facility] rce(s) Supporting Document(s) appearance, urine cloudy clear Above high normal Appearance, Urine CE ([facility]) color, urine eduardo yellow Color, Urine CE (No [facility]) protein, urine auto 2+ negative Above high normal Protein, Urine Auto CE ([facility]) pH,urine 5.0 units 5.0-9.0 pH,urine CE ([facility]) specific gravity urine auto 1.002-1.035 Specifi c [place] Urine Auto CE ([facility]) glucose, urine (UA) auto negative negative Glucose, Ur ine (UA) Auto [place] ([facility]) bilirubin, urine auto 1+ negative Above high normal Bilirub in, Urine Auto [place] ([facility]) urobilinogen, urine auto 4.0 mg/dL 0.0-2.0 Above high jania l Urobilinogen, Urine Auto CE ([facility]) ketone, urine auto 1+ negative Above high normal Ketone, Ur ine Auto [place] ([facility]) nitrite, urine auto negative negative Nitrite, Urine A uto CE ([facility]) WBC, urine auto 38 /hpf 0-3 Above high normal WBC, Urine Au to CE ([facility]) RBC, urine auto 6 /hpf 0-3 Above high normal RBC, Urine Au to CE ([facility]) blood, urine blood negative negative Blood, Urine Bloo d CE ([facility]) leukocyte esterase, urine auto 2+ negative Above high normal Leukocyte Esterase, Urine Auto CE ([facility]) mucus, urine small negative Mucus, Urine CE (No [facility]) bacteria, urine auto negative negative Bacteria, Urine Auto CE ([facility]) hyaline cast, urine auto 49 /lpf 0-1 Hyaline Gregory t, Urine Auto CE ([facility]) squamous epithelial cell ur AU 2 /hpf 0-6 Squam ous Epithelial Cell Ur AU CE ([facility]) ID Date Data Source [id number] 09/06/2020 09:45:00 PM EST CE ([facility]) Name Value Range Interpretation Code Description Data Natali rce(s) Supporting Document(s) ID Date Data Source [id number] 09/06/2020 09:45:00 PM EST CE ([facility]) Name Value Range Interpretation Code Description Data Natali rce(s) Supporting Document(s) ID Date Data Source [id number] 09/06/2020 09:45:00 PM EST CE ([facility]) Name Value Range Interpretation Code Description Data Natali rce(s) Supporting Document(s) glucose, fasting 52 mg/dL 70-100 Below low normal Glucose, Fast ing [place] ([facility]) blood urea nitrogen 16 mg/dL 7-18 Blood Urea Nitro gen [place] ([facility]) creatinine for GFR 0.78 mg/dL 0.70-1.30 Creatinine for GF R [place] ([facility]) sodium level 126 mEq/L 136-145 Below low normal Sodium Level ATHE NA ([facility]) potassium serum 5.4 mEq/L 3.5-5.1 Above high normal Potassium Ser um CE ([facility]) glomerular filtration rate > 60.0 >56 Glomerula r Filtration Rate CE ([facility]) carbon dioxide level 16 mEq/L 21-32 Below low normal Carbon Di oxide Level [place] ([facility]) anion gap 17 mEq/L 8-16 Above high normal Anion Gap [place] ([facility]) calcium level 7.7 mg/dL 8.5-10.1 Below low normal Calcium Level AT [facility]) chloride level 93 mEq/L 98-107 Below low normal Chloride Level [place] ([facility]) ID Date Data Source [id number] 09/06/2020 09:45:00 PM EST CE ([facility]) Name Value Range Interpretation Code Description Data Natali rce(s) Supporting Document(s) ID Date Data Source [id number] 09/06/2020 09:45:00 PM EST CE ([facility]) Name Value Range Interpretation Code Description Data Natali rce(s) Supporting Document(s) ID Date Data Source [id number] 09/06/2020 09:45:00 PM EST CE ([facility]) Name Value Range Interpretation Code Description Data Natali rce(s) Supporting Document(s) glucose, fasting 52 mg/dL 70-100 Below low normal Glucose, Fast ing [place] ([facility]) creatinine for GFR 0.78 mg/dL 0.70-1.30 Creatinine for GF R [place] ([facility]) glomerular filtration rate > 60.0 >56 Glomerula r Filtration Rate [place] ([facility]) blood urea nitrogen 16 mg/dL 7-18 Blood Urea Nitro gen [place] ([facility]) sodium level 126 mEq/L 136-145 Below low normal Sodium Level ATHE NA ([facility]) anion gap 17 mEq/L 8-16 Above high normal Anion Gap [place] ([facility]) chloride level 93 mEq/L 98-107 Below low normal Chloride Level [place] ([facility]) potassium serum 5.4 mEq/L 3.5-5.1 Above high normal Potassium Ser um CE ([facility]) carbon dioxide level 16 mEq/L 21-32 Below low normal Carbon Di oxide Level CE ([facility]) calcium level 7.7 mg/dL 8.5-10.1 Below low normal Calcium Level AT [facility]) ID Date Data Source [id number] 09/06/2020 09:45:00 PM EST CE ([facility]) Name Value Range Interpretation Code Description Data Natali rce(s) Supporting Document(s) ID Date Data Source [id number] 09/06/2020 09:45:00 PM EST CE ([facility]) Name Value Range Interpretation Code Description Data Natali rce(s) Supporting Document(s) ID Date Data Source [id number] 09/06/2020 09:45:00 PM EST CE ([facility]) Name Value Range Interpretation Code Description Data Natali rce(s) Supporting Document(s) glucose, fasting 52 mg/dL 70-100 Below low normal Glucose, Fast ing [place] ([facility]) blood urea nitrogen 16 mg/dL 7-18 Blood Urea Nitro gen [place] ([facility]) creatinine for GFR 0.78 mg/dL 0.70-1.30 Creatinine for GF R [place] ([facility]) sodium level 126 mEq/L 136-145 Below low normal Sodium Level ATHE NA ([facility]) glomerular filtration rate > 60.0 >56 Glomerula r Filtration Rate [place] ([facility]) chloride level 93 mEq/L 98-107 Below low normal Chloride Level [place] ([facility]) carbon dioxide level 16 mEq/L 21-32 Below low normal Carbon Di oxide Level [place] ([facility]) potassium serum 5.4 mEq/L 3.5-5.1 Above high normal Potassium Ser um CE ([facility]) anion gap 17 mEq/L 8-16 Above high normal Anion Gap [place] ([facility]) calcium level 7.7 mg/dL 8.5-10.1 Below low normal Calcium Level AT ROX[facility]) ID Date Data Source [id number] 09/06/2020 09:43:00 PM EST CE ([facility]) Name Value Range Interpretation Code Description Data Natali rce(s) Supporting Document(s) lactic acid sepsis protocol 3.8 mmol/L 0.4-2.0 Above high no rmal Lactic Acid Sepsis Protocol [place] ([facility]) ID Date Data Source [id number] 09/06/2020 09:43:00 PM EST CE ([facility]) Name Value Range Interpretation Code Description Data Natali rce(s) Supporting Document(s) lactic acid sepsis protocol 3.8 mmol/L 0.4-2.0 Above high no rmal Lactic Acid Sepsis Protocol [place] ([facility]) ID Date Data Source [id number] 09/06/2020 09:43:00 PM EST CE ([facility]) Name Value Range Interpretation Code Description Data Natali rce(s) Supporting Document(s) lactic acid sepsis protocol 3.8 mmol/L 0.4-2.0 Above high no rmal Lactic Acid Sepsis Protocol [place] ([facility]) ID Date Data Source [id number] 09/06/2020 08:23:00 PM EST [facility] Name Value Range Interpretation Code Description Data Natali rce(s) Supporting Document(s) SARS coronavirus 2 RNA [Presence] in Res piratory specimen by ABIOLA with probe detection [facility] This lab was ordered by [facility] a nd reported by [facility]. ID Date Data Source [id number] 06/04/2020 01:17:00 PM EDT MEDENT ([facility], ) Name Value Range Interpretation Code Description Data Natali rce(s) Supporting Document(s) PDFReport Laboratory test result MEDENT ([facility], ) FVC-Pred 4.83 L [facility] ([facility]) FVC-Pre 3.01 L [facility] ([facility]) FVC-%Pred-Pre 62 L [facility] ([facility], ) FVC-LLN 3.90 L [facility] ([facility]) Fev1-Pred 3.68 L [facility] ([facility]) Fev1-Pre 1.53 L [facility] ([facility], ) Fev1-%Pred-Pre 41 L [facility] ([facility], ) Fev1-LLN 2.89 L [facility] ([facility], ) Fev6-Pred 4.62 L [facility] ([facility]) Fev6-Pre 2.99 L [facility] ([facility]) Fev6-LLN 3.71 L [facility] ([facility]) Fev6-%Pred-Pre 64 L [facility] ([facility], ) Fst3syi-Kej 51 % [facility] ([facility]) Xhz8jmg-Clsc 76 % [facility] ([facility]) Anm7pbg-%Pred-Pre 66 % [facility] ([facility]) Gfa8jtn-Hiba 96 % [facility] ([facility]) Bpw9hwe-EBH 66 % [facility] ([facility]) Edy9lxn-%Pred-Pre 103 % [facility] ([facility]) Heh3vne-Fmy 99 % [facility] ([facility]) FEFMax-Pred 9.36 L/E/sec [facility] ([facility]) FEFMax-%Pred-Pre 24 L/E/sec [facility] ([facility]) FEFMax-Pre 2.29 L/E/sec [facility] ([facility]) FEFMax-LLN 7.04 L/E/sec [facility] ([facility]) Ubm0949-Svpc 3.07 L/E/sec [facility] ([facility]) Ufx0841-Xqg 0.75 L/E/sec [facility] ([facility]) Dmf7708-%Pred-Pre 24 L/E/sec [facility] ([facility]) Jcf5504-YUM 1.47 L/E/sec [facility] ([facility]) ExpTime-Pre 6.66 sec [facility] ([facility]) Jdr4evo0-Pdjc 79 % [facility] ([facility]) Bjd0chj9-Zdv 51 % [facility] ([facility]) Kvp6btf8-DUT 70 % [facility] ([facility], ) Oes2ini7-%Pred-Pre 64 % [facility] ([facility]) ID Date Data Source [id number] 05/11/2020 01:18:41 PM EDT [facility] Name Value Range Interpretation Code Description Data Natali rce(s) Supporting Document(s) [facility] UTJEPm[id number]nF5HsD6ShANZpTXXNDO8YbOBv jb2 [file] EyOTcgMDAwMDAgbiAKMDAwMDAwMTQwNiAwMDAwMCBu CLjjDDYcLUpyIZVaUXScDHMjEN7fGpFvPCIhNOF5EZhnSYCwQFWvhnQPLQRuCZVrDWwcWCPeSCFmTTCb IJizPJAnRFGbOSX6HLXiRJJjDF7bXiWsZTIrZSAmMWNuVnE0LtCrEqIXbVTkgWdrxrm8WSheD9w5RCSm ZPznOR0zbrUjXNXiRhuhBx4jjJP4SKBlGclTVv6Kr4KtjaQ3cxAfJgkgFLWsYeVtDA1D ID Date Data Source [id number] 05/11/2020 01:01:55 PM EDT [facility] Name Value Range Interpretation Code Description Data Natali rce(s) Supporting Document(s) Progress Note [facility] [id number]/NZVxyDUPry2UwLJrbLLu4YDndXCZvF9WtYSI7sX9yNUO3YEfXLfKcGhNvEGYt lbm [file] [id number] ID Date Data Source [id number] 05/12/2020 11:08:10 AM [facility] Cmnt XXX-Imp : NoneMicroorganism XXX Cult : 2019 nCoV Real-Time RT-PCR: NOT DETECTEDThis test method was designed to detect the causative agent of COVID-19. The Dept. of Pathology [facility] has Emergency Use Authorization (EUA) from the FDA to peform this test to allow for rapid response during a declared public health emergency.Initial validation was performed by the Centers for Disease Control and Prevention (CDC) and additionally validated by the Dept. of Pathology [facility]. Negative results do not preclude SARS-CoV-2 infection and should not be used as the sole basis for patient management decisions.Additional information is available on the following FDA websites for health care providers and patients. https://www.fda.gov/media/796395/download, ht tps://www.fda.gov/media/994883/download. Name Value Range Interpretation Code Description Data Natali rce(s) Supporting Document(s) ID Date Data Source [id number] 05/11/2020 01:01:00 PM [facility] Cmnt XXX-Imp : NoneMicroorganism XXX Cult : 2019 nCoV Real-Time RT-PCR: NOT DETECTEDThis test method was designed to detect the causative agent of COVID-19. The Dept. of Pathology [facility] has Emergency Use Authorization (EUA) from the FDA to peform this test to allow for rapid response during a declared public health emergency.Initial validation was performed by the Centers for Disease Control and Prevention (CDC) and additionally validated by the Dept. of Pathology [facility]. Negative results do not preclude SARS-CoV-2 infection and should not be used as the sole basis for patient management decisions.Additional information is available on the following FDA websites for health care providers and patients. https://www.fda.gov/media/694086/download, ht tps://www.fda.gov/media/441477/download. Name Value Range Interpretation Code Description Data Natali rce(s) Supporting Document(s) Microorganism identified in Unspecified specimen by [facility] This lab was ordered by [facility] and reported by [facility]. ID Date Data Source [id number] 05/11/2020 04:59:10 PM [facility] Name Value Range Interpretation Code Description Data Natali rce(s) Supporting Document(s) Leukocytes [#/volume] in Blood by Automated count 6.9 10*3/uL 4-10 [facility] Erythrocytes [#/volume] in Blood by Automated count 4.02 10*6/uL 4.6- 6.1 L [facility] Hemoglobin [Mass/volume] in Blood 15.4 g/dL 13.5-18 [facility] Hematocrit [Volume Fraction] of Blood by Automated count 45.6 % 4 1-53 [facility] Erythrocyte mean corpuscular volume [Entitic volume] b y Automated count 113.5 fL 80-96 H [facility] Erythrocyte mean corpuscular hemoglobin [Entitic mass] by Automated count 38.3 pg 27-33 H [facility] Erythrocyte mean corpuscular hemoglobin concentration [Mass/volume] by Automated count 33.8 g/dL 32.0-[facility].0 [facility] width [Ratio] by Automated count 15.0 % 11.5-14.5 H [facility] Platelets [#/volume] in Blood by Automated count 288 10*3/uL 150-400 [facility] ID Date Data Source [id number] 05/11/2020 07:50:49 PM EDT [facility] Name Value Range Interpretation Code Description Data Natali rce(s) Supporting Document(s) Bicarbonate [Moles/volume] in Serum 18 mmol/L 22-29 L [facility] Chloride [Moles/volume] in Serum or Plasma 106 mmol/L 98-107 [facility] Creatinine [Mass/volume] in Serum or Plasma 0.51 mg/dL 0.70-1.20 L [facility] Glucose [Mass/volume] in Serum or Plasma 67 mg/dL 70-140 [facility] Potassium [Moles/volume] in Serum or Plasma 3.9 mmol/L 3.4-5.1 [facility] Hemolyzed Sodium [Moles/volume] in Serum or Plasma 138 mmol/L 136-145 [facility] Urea nitrogen [Mass/volume] in Serum or Plasma 4 mg/dL 6-20 [facility] Anion gap 3 in Serum or Plasma 14 mmol/L 8-15 [facility] Osmolality of Serum or Plasma by calculation 282 mosm/kg 275-300 [facility] Creatinine/Urea nitrogen [Mass Ratio] in Serum or Plasma 8 [facility] Calcium [Mass/volume] in Serum or Plasma 8.4 mg/dL 8.6-10.0 [facility] Glomerular filtration rate/1.73 sq M pre dicted among non-blacks [Volume Rate/Area] in Serum or Plasma by Creatinine-based formula (MDRD) >6 0 [facility] Glomerular filtration rate/1.73 sq M pre dicted among blacks [Volume Rate/Area] in Serum or Plasma by Creatinine-based formula (MDRD) >60 [facility] Procedure Social History Code Duration Value Status Description Data Source(s ) Alcohol intake 11/18/2020 12:00:00 AM EST Ex-drinker (finding) comp leted Ex- drinker (finding) [facility] Tobacco use and exposure 11/18/2020 12:00:00 AM EST Never used co mpleted Never used [facility] Cigarette pack-years 11/18/2020 12:00:00 AM EST UNK [facility] Cigarettes smoked current (pack per day) - Reported 11/19/19 12:00:00 AM EST UNK [facility] Smoking 11/18/2020 12:00:00 AM EST Former smoker completed Former smoker [facility] Alcohol intake 11/12/2020 12:00:00 AM EST Ex-drinker (finding) comp leted Ex- drinker (finding) [facility] Alcohol intake 09/22/2020 12:00:00 AM EST Yes completed [facility] Smoking 09/22/2020 12:00:00 AM EST Former smoker completed Former smoker [facility] Alcohol intake 05/11/2020 12:00:00 AM EDT Ex-drinker (finding) comp leted Ex- drinker (finding) [facility] Vital Signs ID Date Data Source UNK Name Value Range Interpretation Code Description Data Source(s) Systolic blood pressure 118 mm[Hg] 118 mm[Hg] [facility] Diastolic blood pressure 62 mm[Hg] 62 mm[Hg] [facility] ([facility]) Heart rate 80 /min 80 /min [facility] ([facility]) Oxygen saturation in Arterial blood by Pulse oximetry 93 % 93 % [facility] ([facility]) Body height 70 [in_i] 70 [in_i] [facility] ([facility]) 5'10" Body weight 137.00 [lb_av] 137.00 [lb_av] [facility] Body mass index (BMI) [Ratio] 19.7 kg/m2 19.7 k g/m2 [facility] ([facility]) [place] body weight 166 [lb_av] 166 [lb_av] [facility] ([facility]) Body weight 62.143 kg 62.143 kg [facility] ([facility]) Body surface area Derived from formula 1.78 m2 1.78 m2 [facility] ([facility]) Diastolic blood pressure 76 mm[Hg] 76 mm[Hg] [place] ([facility]) Body height 72 [in_i] 72 [in_i] [place] ([facility]) Body mass index (BMI) [Ratio] 18.6 kg/m2 18.6 k g/m2 [place] ([facility]) Systolic blood pressure 142 mm[Hg] 142 mm[Hg] A THE[place] ([facility]) Body weight 2196 [oz_av] 2196 [oz_av] CE ([facility]) Diastolic blood pressure 85 mm[Hg] 85 mm[Hg] CE ([facility]) Body height 72 [in_i] 72 [in_i] CE ([facility]) Body mass index (BMI) [Ratio] 19 kg/m2 19 kg/ m2 CE ([facility]) Systolic blood pressure 147 mm[Hg] 147 mm[Hg] [facility] Body weight 2240 [oz_av] 2240 [oz_av] CE ([facility]) Body weight 2240 [oz_av] 2240 [oz_av] CE ([facility]) Diastolic blood pressure 85 mm[Hg] 85 mm[Hg] CE ([facility]) Body height 72 [in_i] 72 [in_i] [place] ([facility]) Body mass index (BMI) [Ratio] 19 kg/m2 19 kg/ m2 CE ([facility]) Systolic blood pressure 147 mm[Hg] 147 mm[Hg] A THE[place] ([facility]) Diastolic blood pressure 73 mm[Hg] 73 mm[Hg] CE ([facility]) Diastolic blood pressure 69 mm[Hg] 69 mm[Hg] CE ([facility]) Body height 72 [in_i] 72 [in_i] [place] ([facility]) Body mass index (BMI) [Ratio] 18.7 kg/m2 18.7 k g/m2 CE ([facility]) Systolic blood pressure 113 mm[Hg] 113 mm[Hg] A THENA ([facility]) Systolic blood pressure 97 mm[Hg] 97 mm[Hg] A [place] ([facility]) Body weight 2208 [oz_av] 2208 [oz_av] CE ([facility]) Diastolic blood pressure 73 mm[Hg] 73 mm[Hg] CE ([facility]) Diastolic blood pressure 69 mm[Hg] 69 mm[Hg] CE ([facility]) Body height 72 [in_i] 72 [in_i] CE ([facility]) Body mass index (BMI) [Ratio] 18.7 kg/m2 18.7 k g/m2 CE ([facility]) Systolic blood pressure 113 mm[Hg] 113 mm[Hg] A THE[place] ([facility]) Systolic blood pressure 97 mm[Hg] 97 mm[Hg] A [facility] ([facility]) Body weight 2208 [oz_av] 2208 [oz_av] CE ([facility]) Diastolic blood pressure 73 mm[Hg] 73 mm[Hg] CE ([facility]) Diastolic blood pressure 69 mm[Hg] 69 mm[Hg] CE ([facility]) Body height 72 [in_i] 72 [in_i] CE ([facility]) Body mass index (BMI) [Ratio] 18.7 kg/m2 18.7 k g/m2 CE ([facility]) Systolic blood pressure 113 mm[Hg] 113 mm[Hg] A THENA ([facility]) Systolic blood pressure 97 mm[Hg] 97 mm[Hg] A THENA ([facility]) Body weight 2208 [oz_av] 2208 [oz_av] CE ([facility]) Diastolic blood pressure 80 mm[Hg] 80 mm[Hg] [facility] Systolic blood pressure 148 mm[Hg] 148 mm[Hg] [facility] Heart rate 118 /min 118 /min [facility] Body height 182.9 cm 182.9 cm [facility] Body weight 62.596 kg 62.596 kg [facility] Body mass index (BMI) [Ratio] 18.72 kg/m2 18.72 kg/m2 [facility] Body surface area Derived from formula 1.71 m2 1.71 m2 WANDA ([facility] ) [place] body weight 166 [lb_av] 166 [lb_av] JOSEL[facility]O T ([facility]) Body weight 56.700 kg 56.700 kg WANDA ([facility] ) Systolic blood pressure 122 mm[Hg] 122 mm[Hg] [facility] ([facility]) Diastolic blood pressure 80 mm[Hg] 80 mm[Hg] [facility] ([facility]) Heart rate 69 /min 69 /min [facility] ([facility]) Oxygen saturation in Arterial blood by Pulse oximetry 98 % 98 % [facility] ([facility]) Body temperature 98.0 [degF] 98.0 [degF] [facility] ([facility]) Body height 70 [in_i] 70 [in_i] [facility] ([facility]) 5'10" Body weight 125.00 [lb_av] 125.00 [lb_av] MED[facility] T ([facility]) Body mass index (BMI) [Ratio] 17.9 kg/m2 17.9 k g/m2 [facility] ([facility]) Systolic blood pressure 120 mm[Hg] 120 mm[Hg] [facility] ([facility]) Diastolic blood pressure 80 mm[Hg] 80 mm[Hg] [facility] ([facility]) Heart rate 92 /min 92 /min [facility] ([facility]) Oxygen saturation in Arterial blood by Pulse oximetry 97 % 97 % [facility] ([facility]) Body temperature 98.3 [degF] 98.3 [degF] [facility] ([facility]) Body height 70 [in_i] 70 [in_i] [facility] ([facility]) 5'10" Body weight 116.00 [lb_av] 116.00 [lb_av] MED[facility] T ([facility]) Body mass index (BMI) [Ratio] 16.6 kg/m2 16.6 k g/m2 [facility] ([facility]) [place] body weight 166 [lb_av] 166 [lb_av] MED[facility] T ([facility]) Body weight 52.618 kg 52.618 kg [facility] ([facility]) Systolic blood pressure 132 mm[Hg] 132 mm[Hg] [facility] ([facility]) Diastolic blood pressure 68 mm[Hg] 68 mm[Hg] [facility] ([facility]) Heart rate 98 /min 98 /min [facility] ([facility]) Oxygen saturation in Arterial blood by Pulse oximetry 97 % 97 % [facility] ([facility]) Body temperature 98.4 [degF] 98.4 [degF] [facility] ([facility]) Body height 70 [in_i] 70 [in_i] [facility] ([facility]) 5'10" Body weight 104.00 [lb_av] 104.00 [lb_av] [facility]) Body mass index (BMI) [Ratio] 14.9 kg/m2 14.9 k g/m2 [facility] ([facility]) [place] body weight 166 [lb_av] 166 [lb_av] [facility]) Body weight 47.174 kg 47.174 kg [facility] ([facility]) ID Date Data Source [id number] 11/20/2020 02:06:17 PM [facility] Name Value Range Interpretation Code Description Data Source(s) WEIGHT RECORDED 130 lb 130 lb [facility] ID Date Data Source [id number] 11/19/2020 08:01:08 AM [facility] Name Value Range Interpretation Code Description Data Source(s) WEIGHT RECORDED 119.49 lb 119.49 lb [facility] ID Date Data Source [id number] 11/09/2020 10:10:28 AM [facility] Name Value Range Interpretation Code Description Data Source(s) WEIGHT RECORDED 128.75 lb 128.75 lb [facility] Body height Measured 70.24 in 70.24 in [facility] ID Date Data Source [id number] 05/11/2020 07:50:59 PM [facility] Name Value Range Interpretation Code Description Data Source(s) WEIGHT RECORDED 110.01 lb 110.01 lb [facility] Body height Measured 70.28 in 70.28 in [facility] Patient Treatment Plan of Care Planned Activity Planned Date Details Description Data Source (s) Acetaminophen 325 MG / Hydrocodone Bitartrate 5 MG Ora l Tablet 11/18/2020 12:00:00 AM [facility] Mupirocin 0.02 MG/MG Topical Ointment 11/13/2020 05:00:00 PM [facility] Oxycodone Hydrochloride 5 MG Oral Tablet 11/13/2020 12:00:00 AM [facility] Acetaminophen 325 MG Oral Tablet 11/13/2020 12:00:00 AM [facility] Oxycodone Hydrochloride 5 MG Oral Tablet 11/12/2020 08:24:17 PM [facility] Digoxin 0.125 MG Oral Tablet 09/22/2020 12:00:00 AM [facility] Cefuroxime 500 MG Oral Tablet 09/14/2020 12:00:00 AM [facility] doxycycline hyclate 100 MG Oral Capsule 09/14/2020 12:00:00 AM [facility] tiotropium 0.018 MG/ACTUAT Inhalant Powder [Spiriva] 020 12:00:00 AM [facility] gabapentin 100 MG Oral Capsule [facility].125 MG Oral Tablet 01/09/2018 12:00:00 AM [facility] Metoclopramide 10 MG Oral Tablet 01/01/2018 12:00:00 AM [facility] OxyCODONE HCl ER (OXYCONTIN) 20 MG T12A 12 hr tablet 016 12:00:00 AM [facility] rivaroxaban 20 MG Oral Tablet 01/22/2015 12:00:00 AM [facility] Resource Instant Protein POWD 01/22/2015 12:00:00 AM [facility] Oxycodone Hydrochloride 1 MG/ML Oral Solution 01/22/2015 12:00:00 A M [facility] Morphine Sulfate 30 MG Oral Tablet 01/06/2015 12:00:00 AM [facility] Morphine Sulfate 30 MG Oral Tablet 12/04/2014 12:00:00 AM EDT [facility] Oxycodone Hydrochloride 20 MG Oral Tablet 07/15/2014 12:00:00 AM ES T [facility] Metoprolol Tartrate 25 MG Oral Tablet 01/21/2014 12:00:00 AM EDT [facility] Potassium 99 MG TABS 01/10/2014 12:00:00 AM EDT [facility] Magnesium Oxide 400 MG Oral Tablet 03/09/2012 12:00:00 AM EDT [facility] rivaroxaban 15 MG Oral Tablet 03/09/2012 12:00:00 AM EDT [facility] Guaifenesin 20 MG/ML Oral Solution [Robafen] CE ([facility]) 12 HR Oxycodone Hydrochloride 20 MG Extended Release Oral Ta blet [Oxycontin] CE ([facility]) Mupirocin 0.02 MG/MG Topical Ointment CE ([facility]) Morphine Sulfate 30 MG Extended Release Oral Tablet CE ([facility]) Metoclopramide 10 MG Oral Tablet CE ([facility]) Loratadine 10 MG Oral Tablet CE ([facility]) Ketoconazole 20 MG/ML Topical Cream CE ([facility]) gabapentin 100 MG Oral Capsule CE ([facility]) Amoxicillin 875 MG / Clavulanate 125 MG Oral Tablet CE ([facility]) pantoprazole 40 MG Delayed Release Oral Tablet [facility] gabapentin 50 MG/ML Oral Solution [facility] Metoclopramide 10 MG Oral Tablet [facility] 12 HR Oxycodone Hydrochloride 20 MG Extended Release Oral Ta blet [Oxycontin] CE ([facility]) Mupirocin 0.02 MG/MG Topical Ointment CE ([facility]) Morphine Sulfate 30 MG Extended Release Oral Tablet CE ([facility]) Metoclopramide 10 MG Oral Tablet CE ([facility]) Loratadine 10 MG Oral Tablet CE ([facility]) Ketoconazole 20 MG/ML Topical Cream CE ([facility]) gabapentin 100 MG Oral Capsule CE ([facility]) Amoxicillin 875 MG / Clavulanate 125 MG Oral Tablet CE ([facility]) Esomeprazole 40 MG Delayed Release Oral Capsule [facility] Esomeprazole 40 MG Delayed Release Oral Capsule [facility] Guaifenesin 20 MG/ML Oral Solution [Robafen] CE ([facility]) 12 HR Oxycodone Hydrochloride 20 MG Extended Release Oral Ta blet [Oxycontin] CE ([facility]) Mupirocin 0.02 MG/MG Topical Ointment CE ([facility]) Morphine Sulfate 30 MG Extended Release Oral Tablet CE ([facility]) Metoclopramide 10 MG Oral Tablet CE ([facility]) Loratadine 10 MG Oral Tablet CE ([facility]) Ketoconazole 20 MG/ML Topical Cream CE ([facility]) gabapentin 100 MG Oral Capsule CE ([facility]) Amoxicillin 875 MG / Clavulanate 125 MG Oral Tablet CE ([facility]) Guaifenesin 20 MG/ML [facility]
--- NOTE | 2021-07-07 18:07 | HPEPDOC ---
[facility] [place] Medical History & Physical Date of Admission Jul 07, 2021 Date of Service: Jul 07, 2021 Attending Physician: CHAVA WILSON DO History and Physical CHIEF COMPLAINT: Dyspnea HISTORY OF PRESENT ILLNESS: Patient is a 61-year-old male who presented to the emergency department with a 5-day history of worsening dyspnea on exertion. Patient states he got his flu shot on Monday, 5 days ago and has been getting worse since. Patient states that prior to the flu shot, he was able to walk about a mile without having any difficulties. Patient now states he can barely walk to the door and back without having to stop because he is so short of breath. Patient states that he has been coughing up clear phlegm without any blood. Patient states that this is been going on for the past 5 days. Patient states he was in his usual state of health prior to getting his flu shot. Patient denies any chest pain. Patient was having some palpitations today which caused worsening of shortness of breath which caused him to come into the emergency department. Patient states that he has been trying his albuterol inhaler to help with shortness of breath but it has not been helping. In the emergency department, patient was found to have crackles on exam and was admitted for possible CHF exacerbation. PAST MEDICAL HISTORY: 1. Longstanding persistent atrial fibrillation. 2. Jaw cancer status post resection and reconstruction with radiation therapy. 3. Chronic pain on chronic narcotics. 4. Protein calorie malnutrition 5. History of chest tube placement for hydropneumothorax 6. Left hip fracture PAST SURGICAL HISTORY: 1. States multiple surgeries and reconstructions for jaw cancer. 2. Chest tube placement for hydropneumothorax. SOCIAL HISTORY: Patient reports smoking about half pack of cigarettes a day. Patient does drink alcohol and denies illicit drug use FAMILY HISTORY: Patient states that his father had heart disease and his mother is currently living and has a pacemaker ALLERGIES: Please see below. REVIEW OF SYSTEMS: General: Patient denies fevers HEENT: Patient denies headaches Cardiovascular: Patient denies chest pain Respiratory: Patient reports shortness of breath as above GI: Patient denies abdominal pain, nausea, vomiting, diarrhea : Patient denies increased frequency or pain with urination Extremities: Patient denies swelling or pain in extremities Neurological: Patient denies numbness or tingling in legs Skin: Patient denies any new rashes or lesions. Hematologic: Patient denies any easy bruising. Lymphatic: Patient denies any lumps lumps or bumps in neck, axilla, or groin HOME MEDICATIONS: Please see below. PHYSICAL EXAMINATION: VITAL SIGNS: Temperature 98.9, pulse 103, respiratory rate 18, blood pressure 140/83, pulse oximetry 93% on room air. General: Alert and oriented male patient who was sitting up on the stretcher when I walked in. Patient did not appear to be in any acute distress. HEENT: Normocephalic, atraumatic, moist mucous membranes. Neck: No lymphadenopathy or thyromegaly Cardiac: Irregularly irregular rhythm with a rate around 80-100 no murmurs, normal S1, normal S2 Pulm: Bibasilar crackles otherwise clear to auscultation bilaterally Abd: Nondistended, nontender to palpation, normal bowel sounds Ext: No edema bilateral lower extremities, 2/4 dorsalis pedis pulses bilaterally Neuro: Patient was able to move all 4 extremities on command and reported equal sensation light touch in all 4 extremities. Skin: Skin of the head, neck, upper and lower extremities was examined and showed multiple scabbed over wounds in the lower extremity on the right side. LABORATORY DATA: See below. IMAGING: Chest x-ray performed on 07/07/2021 was reported to show chronic findings. Possible mild superimposed right base infiltrate. MICROBIOLOGY: Please see below. ASSESSMENT: Patient is a 61-year-old male presented to the hospital with worsening dyspnea on exertion who was found to have possible congestive heart failure exacerbation. . PLAN: 1. Dyspnea on exertion. Patient has bibasilar crackles on examination. Patient does not have any leg edema. Patient does have an elevated BNP. Patient received a dose of IV Lasix in the emergency department we will continue this overnight and continue to monitor the patient's response closely. Patient does not have any wheezing do not think this is a flare of possible COPD. Patient does not have a white count so I do not believe this is pneumonia. We will continue to monitor the patient's response to treatment. 2. Congestive heart failure exacerbation. We will treat with IV Lasix. Patient will have echocardiogram performed. Patient did have an echocardiogram performed in September 2019 that showed a normal left ventricular ejection fraction. We will continue with treatment as above. 3. Persistent atrial fibrillation with RVR. Patient is on digoxin for lou tment. Patient's heart rate was elevated upon arrival to the emergency department. Patient's heart rate did improve into the 80s when I was interviewing examining him. Patient is not on any anticoagulation. Patient's chads vas score is 1 for history of heart failure which states that the patient could be on aspirin for anticoagulation. We will continue to monitor the patient's heart rate with telemetry. 4. Jaw cancer. Patient can continue his outpatient treatment. Patient was apparently on hospice but had graduated. 5. Protein calorie malnutrition. Patient has bitemporal wasting and a BMI of 17.8. Ensure will be added to the patient's tray. 6. DVT prophylaxis: Heparin 7. CODE STATUS: Full code Disposition: Patient be admitted to medical surgical floor with telemetry. I do expect the patient to be discharged after greater than or equal to 2 midnight stay. Vital Signs Vital Signs Date Time Temp Pulse Resp B/P (MAP) Pulse Ox O2 Delivery O2 Flow Rate FiO2 07/07/21 17:00 98.9 140/83 (102) 07/07/21 16:55 103 07/07/21 16:40 93 07/07/21 15:26 Room Air 07/07/21 15:25 18 Laboratory Data Labs 24H Laboratory Tests 2 07/07/21 15:09: Anion Gap 18H, Glomerular Filtration Rate > 60.0, Calcium Level 8.5, Total Bilirubin 0.6, Direct Bilirubin 0.2, Aspartate Amino Transf (AST/SGOT) 70H, Alanine Aminotransferase (ALT/SGPT) 36, Alkaline Phosphatase 104, XN-Dtg-S-Type Natriuretic Peptide 6192H, Total Protein 6.4, Albumin 3.0L, Albumin/Globulin Ratio 0.9, Thyroid Stimulating Hormone (TSH) 2.400, Thyroxine (T4) 6.2, Digoxin Level 1.2 07/07/21 15:10: Immature Granulocyte % (Auto) 0.6, Neutrophils (%) (Auto) 53.7, Lymphocytes (%) (Auto) 30.7, Monocytes (%) (Auto) 11.2H, Eosinophils (%) (Auto) 1.8, Basophils (%) (Auto) 2.0H, Neutrophils # (Auto) 2.7, Lymphocytes # (Auto) 1.5, Monocytes # (Auto) 0.6, Eosinophils # (Auto) 0.1, Basophils # (Auto) 0.1, Nucleated Red Blood Cells % (auto) 0.0 07/07/21 15:15: POC Troponin I (Misc) 0.06 CBC/BMP Laboratory Tests 07/07/21 15:09 07/07/21 15:10 Microbiology Microbiology 07/07/21 Respiratory Virus Panel (PCR) (NAT) - Final, Complete Home Medications Scheduled Cefuroxime Axetil (Cefuroxime) 500 Mg Tablet, 500 MG PO BID Digoxin (Digoxin) 125 Mcg Tablet, 125 MCG PO QHS Doxycycline Hyclate (Doxycycline Hyclate) 100 Mg Capsule, 100 MG PO BID Folic Acid (Folic Acid) 1 Mg Tablet, 1 MG PO QHS Pantoprazole Sodium (Pantoprazole Sodium) 40 Mg Tablet.dr, 40 MG PO QHS Tiotropium [place] (Spiriva) 18 Mcg Cap.w.dev, 18 MCG INH QHS Scheduled PRN Acetaminophen (Acetaminophen) 500 Mg Tablet, 1,000 MG PO Q6H PRN for PAIN / FEVER Albuterol Sulfate (Proair Hfa) 8.5 Gm Hfa.aer.ad, 2 PUFF INH Q4H PRN for SHORTNESS OF BREATH Allergies Coded Allergies: No Known Allergies (Verified , 09/08/04) A-FIB/CHADSVASC A-FIB History Current/History of A-Fib/PAF?: Yes Current PO Anticoag Therapy: No Age/Risk Factor Scoring CHADSVASC: CHADSVASC Response (Comments) Value Gender Risk Factor Male 0 Hx of CHF Yes 1 Hx of HTN No 0 Hx of Stroke/TIA/or VTE No 0 Hx of Diabetes No 0 Hx of Vascular Disease No 0 Total 1 Treatment Treatment ordered: NONE CHAVA WILSON DO Jul 07, 2021 18:07
[2021-07-07] MEDS ORDERED: K-TA10TA2 PO (18:42)
[2021-07-07] MEDS ORDERED: ERGO500029 PO (18:42)
[2021-07-07] MEDS ORDERED: MAGN250T7 PO (18:42)
[2021-07-07 18:45] LABS: ABG BASE EXCESS -7.2 (-2.0-2.0); ABG HCO3 15.4 MEQ/L (22.0-26.0); ABG O2 SATURATION 96.5 % (95.0-99.0); ABG PARTIAL PRESSURE CO2 25.1 mmHg (35.0-45.0); ABG PARTIAL PRESSURE O2 93.9 mmHg (75.0-100.0); ABG STANDARD HCO3 18.7 MEQ/L (22.0-26.0); ABG TOTAL CO2 16.2 MEQ/L (22.0-29.0); ABG pH (ARTERIAL) 7.407 UNITS (7.350-7.450)
[2021-07-07] MEDS ORDERED: HOME MED LIST COMPLETE! XX SCH (18:45)
[2021-07-08 00:01] LABS: CK-MB VALUE MASS 2.8 NG/ML (<3.6); MB/CK RELATIVE INDEX 4.67 (< OR =4); TROPONIN I 0.02 NG/ML (< 0.10)
[2021-07-08] MEDS: FUROSEMIDE 40MG/4ML VIAL (J1940) IV SCH ×2 (01:56→09:53)
[2021-07-08] MEDS: ACETAMINOPHEN TAB 650MG DOSE (2X325MG) PO PRN ×4 (02:39→23:39)
[2021-07-08 08:39] LABS: HEMATOCRIT 38.5 % (42.0-52.0); HEMOGLOBIN 14.1 g/dl (13.5-17.5); MEAN CORPUSCULAR HEMOGLOBIN 37.3 pg (27.0-33.0); MEAN CORPUSCULAR VOLUME 101.9 fl (80.0-96.0); PLATELET COUNT, AUTOMATED 151 10^3/uL (150-450); RED BLOOD COUNT 3.78 10^6/uL (4.30-6.10); WHITE BLOOD COUNT 5.3 10^3/uL (4.0-10.0)
[2021-07-08 08:42] LABS: MEAN CORPUSCULAR HGB CONC 36.5 g/dl (32.0-36.5)
[2021-07-08] MEDS: ENOXAPARIN 40MG/0.4ML SYRINGE (J1650 PER 10MG) SC SCH (09:00)
[2021-07-08 09:02] LABS: BLOOD UREA NITROGEN 14 MG/DL (7-18); CALCIUM LEVEL 8.7 MG/DL (8.5-10.1); CARBON DIOXIDE LEVEL 27 MEQ/L (21-32); CHLORIDE LEVEL 94 MEQ/L (98-107); CREATININE FOR GFR 0.94 MG/DL (0.70-1.30); GLOMERULAR FILTRATION RATE > 60.0 (>56); GLUCOSE, FASTING 118 MG/DL (70-100); MAGNESIUM LEVEL 1.6 MG/DL (1.8-2.4); POTASSIUM SERUM 3.6 MEQ/L (3.5-5.1); SODIUM LEVEL 133 MEQ/L (136-145)
[2021-07-08] MEDS: POTASSIUM CHLORIDE 10MEQ SR TABLET PO SCH (10:52)
[2021-07-08] MEDS: DIGOXIN 0.125 MG TAB PO SCH (10:53)
[2021-07-08] MEDS: PANTOPRAZOLE 40MG TAB (PROTONIX) PO SCH (10:53)
[2021-07-08] MEDS: TIOTROPIUM INHALER/CAPSULE (SPIRIVA) INH SCH (11:43)
[2021-07-08 15:30] VITALS: BP 117/78
--- NOTE | 2021-07-08 15:48 | IPNPDOC ---
Text Note Date of Service The patient was seen on 07/08/21. NOTE Subjective: Patient is a 61-year-old male presented to emergency room with 5-day history of worsening dyspnea on exertion. Patient states he is feeling slightly better today however, has not been able to get up and walk around very much. Patient diuresed well overnight. Patient did not get his dose of digoxin this morning so his heart rate was elevated. Patient denies having any pain at this time. Patient denies anything a difficulty going to the bathroom. Patient is feeling better than when he presented to the hospital. Review of systems: General: Patient denies fevers HEENT: Patient denies headaches Cardiovascular: Patient denies chest pain Respiratory: Patient denies shortness of breath, cough GI: Patient denies abdominal pain, nausea, vomiting, diarrhea : Patient denies increased frequency or pain with urination Extremities: Patient denies swelling or pain in extremities Neurological: Patient denies numbness or tingling in legs Physical exam: Vitals: See below General: Alert and oriented male patient who was sitting up in bed when I walked in. Patient did not appear to be in any acute distress. HEENT: Normocephalic, atraumatic, moist mucous membranes. Neck: No lymphadenopathy or thyromegaly Cardiac: Irregular rhythm around 100-1 10, no murmurs, normal S1, normal S2 Pulm: Clear to auscultation bilaterally. No wheezes, rhonchi, rales Abd: Nondistended, nontender to palpation, normal bowel sounds Ext: No edema bilateral lower extremities Labs: See below Imaging: No new imaging has been performed Assessment/plan: 61-year-old male presented to hospital with worsening dyspnea on exertion was found to have possible congestive heart failure exacerbation. 1. Dyspnea on exertion. Patient had bibasilar crackles on examination on admis soni but these have improved. Patient's Lasix have been switched from IV to p.o. at this time. Patient will remain in the hospital 1 more night and we will see how he is doing tomorrow as his heart rate was mildly elevated today which I believe may be secondary to not receiving his medication this morning. Medications been added and we will continue to monitor. 2. Congestive heart failure exacerbation. Patient diuresed adequately and is feeling better at this time. Echocardiogram was performed today we are waiting official read. 3. Persistent atrial fibrillation with RVR. Patient's heart rate was mildly elevated with heart rate as high as 140. Patient received his digoxin this mor merritt and his heart rate came down to about the 90-110 range. We will continue to monitor and see if any other medications need to be added at this time. 4. Jaw cancer. Continue outpatient treatment. 5. Protein calorie malnutrition. Bitemporal wasting and a BMI of 17.8. Ensure will be added to patient's tray. DVT Prophylaxis: Heparin Disposition: Pending improvement in heart rate. VS,Fishbone, I+O VS, Fishbone, I+O Laboratory Tests 07/08/21 07:19 Vital Signs Date Time Temp Pulse Resp B/P (MAP) Pulse Ox O2 Delivery O2 Flow Rate FiO2 07/08/21 12:45 98.9 108 18 153/72 (99) 98 Room Air I&O- Last 24 Hours up to 6 AM 07/08/21 06:00 Output Total 1250 ml Balance -1250 ml CHAVA WILSON DO Jul 08, 2021 15:48
--- NOTE | 2021-07-08 20:08 | ECGEPIP ---
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
[2021-07-08 22:00] VITALS: BP 122/79
[2021-07-09 04:53] VITALS: O2SAT 94
[2021-07-09 06:00] VITALS: BP 125/85
[2021-07-09 06:38] LABS: HEMOGLOBIN 13.8 g/dl (13.5-17.5); MEAN CORPUSCULAR HEMOGLOBIN 36.8 pg (27.0-33.0); MEAN CORPUSCULAR HGB CONC 36.3 g/dl (32.0-36.5); MEAN CORPUSCULAR VOLUME 101.3 fl (80.0-96.0); PLATELET COUNT, AUTOMATED 133 10^3/uL (150-450); RED BLOOD COUNT 3.75 10^6/uL (4.30-6.10); WHITE BLOOD COUNT 4.1 10^3/uL (4.0-10.0)
[2021-07-09] MEDS: ACETAMINOPHEN TAB 650MG DOSE (2X325MG) PO PRN ×3 (06:40→19:40)
[2021-07-09 07:08] LABS: BLOOD UREA NITROGEN 15 MG/DL (7-18); CALCIUM LEVEL 8.8 MG/DL (8.5-10.1); CARBON DIOXIDE LEVEL 35 MEQ/L (21-32); CHLORIDE LEVEL 93 MEQ/L (98-107); CREATININE FOR GFR 0.96 MG/DL (0.70-1.30); GLOMERULAR FILTRATION RATE > 60.0 (>56); GLUCOSE, FASTING 134 MG/DL (70-100); MAGNESIUM LEVEL 1.7 MG/DL (1.8-2.4); POTASSIUM SERUM 3.6 MEQ/L (3.5-5.1); SODIUM LEVEL 131 MEQ/L (136-145)
[2021-07-09] MEDS: TIOTROPIUM INHALER/CAPSULE (SPIRIVA) INH SCH (07:13)
[2021-07-09] MEDS: FUROSEMIDE 40 MG TAB PO SCH (09:30)
[2021-07-09] MEDS: PANTOPRAZOLE 40MG TAB (PROTONIX) PO SCH (09:30)
[2021-07-09] MEDS: ENOXAPARIN 40MG/0.4ML SYRINGE (J1650 PER 10MG) SC SCH (09:30)
[2021-07-09] MEDS: POTASSIUM CHLORIDE 10MEQ SR TABLET PO SCH (09:30)
[2021-07-09] MEDS: DIGOXIN 0.125 MG TAB PO SCH (09:30)
[2021-07-09 14:28] VITALS: BP 130/85
--- NOTE | 2021-07-09 17:49 | IPNPDOC ---
Text Note Date of Service The patient was seen on 07/09/21. NOTE Subjective: Patient is a 61-year-old male presented emergency department with 5- day history worsening dyspnea on exertion. Patient states that the dyspnea is improving however, he is still short of breath when he is walking to around the bathroom. Patient is also been having some swallowing difficulties ever since his jaw surgery. Patient is coughing up a clear sputum which appears to be mostly saliva. Patient states he is feeling better at this time. Patient is eating and drinking without any difficulty. Review of systems: General: Patient denies fevers HEENT: Patient denies headaches Cardiovascular: Patient denies chest pain Respiratory: Patient reports shortness of breath and cough as above GI: Patient denies abdominal pain, nausea, vomiting, diarrhea : Patient denies increased frequency or pain with urination Extremities: Patient denies swelling or pain in extremities Neurological: Patient denies numbness or tingling in legs Physical exam: Vitals: See below General: Alert and oriented male patient who was sitting up in bed when I walked in. Patient not appear to be in any acute distress. HEENT: Normocephalic, atraumatic, moist mucous membranes. Neck: No lymphadenopathy or thyromegaly Cardiac: Irregularly irregular rhythm with rate around 80, no murmurs, normal S1, normal S2 Pulm: Clear to auscultation bilaterally. No wheezes, rhonchi, rales Abd: Nondistended, nontender to palpation, normal bowel sounds Ext: No edema bilateral lower extremities Labs: See below Imaging: No new imaging has been performed Assessment/plan: 61-year-old male presented to hospital with worsening dyspnea on exertion was found to have possible congestive heart failure exacerbation. 1. Dyspnea on exertion. Patient had bibasilar crackles on examination on admission but these have improved. Patient's Lasix have been switched from IV to p.o. at this time. Patient will remain in the hospital until his dyspnea continues to improve. Possible discharge home for tomorrow. 2. Congestive heart failure exacerbation. Patient has diuresed adequately and feeling better at this time. Echocardiogram read is still pending at this time. 3. Persistent atrial fibrillation with RVR. Patient's RVR is resolved at this time. Will continue with home medications. 4. Jaw cancer. Continue outpatient treatment. Speech therapy saw the patient today and recommended a cookie swallow. 5. Protein calorie malnutrition. Bitemporal wasting and a BMI of 17.8. Ensure will be out of the patient's tray. DVT Prophylaxis: Heparin Disposition: Pending clinical improvement, possible discharge tomorrow. VS,Fishbone, I+O VS, Fishbone, I+O Laboratory Tests 07/09/21 06:12 Vital Signs Date Time Temp Pulse Resp B/P (MAP) Pulse Ox O2 Delivery O2 Flow Rate FiO2 07/09/21 14:28 98.9 103 20 130/85 (100) 96 Room Air I&O- Last 24 Hours up to 6 AM 07/09/21 06:00 Intake Total 1430 ml Output Total 2475 ml Balance -1045 ml CHAVA WILSON DO Jul 09, 2021 17:49
[2021-07-09 19:36] VITALS: O2SAT 95
[2021-07-09 22:00] VITALS: BP 119/80
[2021-07-10] MEDS: ACETAMINOPHEN TAB 650MG DOSE (2X325MG) PO PRN (02:57)
[2021-07-10 06:00] VITALS: BP 133/83
[2021-07-10 07:12] LABS: HEMOGLOBIN 13.1 g/dl (13.5-17.5); MEAN CORPUSCULAR HEMOGLOBIN 36.3 pg (27.0-33.0); MEAN CORPUSCULAR HGB CONC 35.4 g/dl (32.0-36.5); MEAN CORPUSCULAR VOLUME 102.5 fl (80.0-96.0); PLATELET COUNT, AUTOMATED 127 10^3/uL (150-450); RED BLOOD COUNT 3.61 10^6/uL (4.30-6.10)
[2021-07-10] MEDS: TIOTROPIUM INHALER/CAPSULE (SPIRIVA) INH SCH (07:29)
[2021-07-10 07:31] LABS: BLOOD UREA NITROGEN 16 MG/DL (7-18); CALCIUM LEVEL 8.5 MG/DL (8.5-10.1); CARBON DIOXIDE LEVEL 30 MEQ/L (21-32); CHLORIDE LEVEL 91 MEQ/L (98-107); CREATININE FOR GFR 0.74 MG/DL (0.70-1.30); GLOMERULAR FILTRATION RATE > 60.0 (>56); GLUCOSE, FASTING 102 MG/DL (70-100); MAGNESIUM LEVEL 1.5 MG/DL (1.8-2.4); POTASSIUM SERUM 3.2 MEQ/L (3.5-5.1); SODIUM LEVEL 131 MEQ/L (136-145)
[2021-07-10] MEDS: PANTOPRAZOLE 40MG TAB (PROTONIX) PO SCH (08:35)
[2021-07-10] MEDS: POTASSIUM CHLORIDE 10MEQ SR TABLET PO SCH (08:35)
[2021-07-10] MEDS: DIGOXIN 0.125 MG TAB PO SCH (08:35)
[2021-07-10] MEDS: FUROSEMIDE 40 MG TAB PO SCH (08:36)
[2021-07-10] MEDS: ENOXAPARIN 40MG/0.4ML SYRINGE (J1650 PER 10MG) SC SCH (08:36)
[2021-07-10] MEDS ORDERED: FURO20TA2 PO (09:47)
[2021-07-10 09:52] VITALS: O2SAT 95
[2021-07-10] MEDS ORDERED: POTASSIUM CHLORIDE 10MEQ SR TABLET PO ONE (11:00)
--- NOTE | 2021-07-10 12:34 | DS.PDOC ---
Discharge Summary General Date of Admission Jul 07, 2021 at 17:34 Date of Discharge 07/10/2021 Attending Physician: CHAVA WILSON DO Discharge Summary PROCEDURES PERFORMED DURING STAY: None. ADMITTING DIAGNOSES: 1. Dyspnea on exertion. 2. Congestive heart failure exacerbation 3. Persistent atrial fibrillation with RVR 4. Heart cancer 5. Protein calorie malnutrition DISCHARGE DIAGNOSES: 1. Dyspnea on exertion, improved 2. Congestive heart failure exacerbation, improved, preserved ejection fraction based on echocardiogram in 2019, echocardiogram from this hospitalization read is pending at time of discharge 3. Persistent atrial fibrillation with RVR 4. Heart cancer 5. Protein calorie malnutrition COMPLICATIONS/CHIEF COMPLAINT: Dyspnea. HISTORY OF PRESENT ILLNESS: Patient is a 61-year-old male who presented to the emergency department with a 5-day history of worsening dyspnea on exertion. Patient states he got his flu shot on Monday, 5 days ago and has been getting worse since. Patient states that prior to the flu shot, he was able to walk about a mile without having any difficulties. Patient now states he can barely walk to the door and back without having to stop because he is so short of breath. Patient states that he has been coughing up clear phlegm without any blood. Patient states that this is been going on for the past 5 days. Patient states he was in his usual state of health prior to getting his flu shot. Patient denies any chest pain. Patient was having some palpitations today which caused worsening of shortness of breath which caused him to come into the emergency department. Patient states that he has been trying his albuterol inhaler to help with shortness of breath but it has not been helping. In the emergency department, patient was found to have crackles on exam and was admitted for possible CHF exacerbation. HOSPITAL COURSE: Patient received IV diuresis through the first day of his hospitalization and diuresed well. Patient's lung exam improved where he was no longer having crackles on examination. Patient did have persistent atrial fibrillation with a rapid ventricular rate around 100-110 on the first day of his hospitalization. Patient did not receive his medication earlier in the day and his digoxin was restarted. Patient's heart rate was relatively well controlled throughout the rest of his hospitalization. Patient had his Lasix switched from IV to p.o and patient continued to diurese well. Patient did have some hypokalemia which was repleted. Who did recommend a cookie swallow however, this was not performed prior to the patient leaving and patient did not have any difficulty eating or drinking. Speech therapy apparently saw the patient however, I do not have any documentation of this. Patient says that they did come to see him and he did not have any problems with this. Patient was able to eat his regular diet and take his medication without any difficulty according to nursing. Patient should have a outpatient cookie swallow performed. Patient does not have any signs of aspiration pneumonia as the cause of the patient's dyspnea on exertion. Patient was feeling better and was asking to go home. Patient was deemed ready for discharge and was discharged home on 07/10/2021. DISCHARGE MEDICATIONS: Please see below. ALLERGIES: Please see below. PHYSICAL EXAMINATION ON DISCHARGE: VITAL SIGNS: Please see below. General: Alert and oriented male patient who was sitting up in bed when I walked in. Patient did not appear to be in any acute distress. HEENT: Normocephalic, atraumatic, moist mucous membranes. Neck: No lymphadenopathy or thyromegaly Cardiac: Regular rate and rhythm, no murmurs, normal S1, normal S2 Pulm: Clear to auscultation bilaterally. No wheezes, rhonchi, rales Abd: Nondistended, nontender to palpation, normal bowel sounds Ext: No edema bilateral lower extremities, multiple scabs overlying the knee right knee and right noble LABORATORY DATA: Please see below. IMAGING: Chest x-ray performed on 07/07/2021 was reported to show chronic findi ngs. Possible mild superimposed right base infiltrate. PROGNOSIS: Fair ACTIVITY: As tolerated. DIET: 2 g sodium diet with 1800 cc fluid restriction DISCHARGE PLAN: Discharge home DISPOSITION: 01 Home, Self-Care. DISCHARGE INSTRUCTIONS: 1. Follow-up with your primary care provider within 3 to 5 days of discharge. 2. Start taking Lasix 20 mg daily 3. Follow-up with primary care provider about outpatient cookie swallow 4. Return to emergency department symptoms worsen ITEMS TO FOLLOWUP ON ON OUTPATIENT: 1. Echocardiogram report and outpatient cookie swallow. DISCHARGE CONDITION: Stable. TIME SPENT ON DISCHARGE: 35 minutes. Vital Signs/I&Os Vital Signs Date Time Temp Pulse Resp B/P (MAP) Pulse Ox O2 Delivery O2 Flow Rate FiO2 07/10/21 09:52 95 Room Air 07/10/21 08:35 87 07/10/21 06:00 97.7 17 133/83 (100) I&O- Last 24 Hours up to 6 AM 07/10/21 06:00 Intake Total 1140 ml Output Total 650 ml Balance 490 ml Laboratory Data Labs 24H Laboratory Tests 2 07/10/21 05:42: Nucleated Red Blood Cells % (auto) 0.0, Anion Gap 10, Glomerular Filtration Rate > 60.0, Calcium Level 8.5, Magnesium Level 1.5L CBC/BMP Laboratory Tests 07/10/21 05:42 Microbiology Microbiology 07/07/21 Respiratory Virus Panel (PCR) (NAT) - Final, Complete Discharge Medications Scheduled Digoxin (Digoxin) 125 Mcg Tablet, 125 MCG PO DAILY, (Reported) Ergocalciferol (Vitamin D2) (Vitamin D2) 50,000 Units Cap, 50,000 UNITS PO QWEEK, (Reported) MONDAY'S Furosemide (Furosemide) 20 Mg Tablet, 1 TAB PO DAILY Magnesium Oxide (Magnesium) 250 Mg Tablet, 250 MG PO DAILY, (Reported) Pantoprazole Sodium (Pantoprazole Sodium) 40 Mg Tablet.dr, 40 MG PO QAM, (Reported) Potassium Chloride (K-Tab ER) 10 Meq Tablet.er, 10 MEQ PO QAM, (Reported) Tiotropium [place] (Spiriva) 18 Mcg Cap.w.dev, 18 MCG INH DAILY, (Reported) MONDAY'S Scheduled PRN Acetaminophen (Acetaminophen) 500 Mg Tablet, 1,000 MG PO Q4H PRN for PAIN / FEVER, (Reported) Albuterol Sulfate (Proair Hfa) 8.5 Gm Hfa.aer.ad, 2 PUFF INH Q4H PRN for SHORTNESS OF BREATH, (Reported) Allergies Coded Allergies: No Known Allergies (Verified , 09/08/04) CHAVA WILSON DO Jul 10, 2021 12:34
--- NOTE | 2021-07-10 14:57 | ECHO ---
ECHOCARDIOGRAM DATE OF PROCEDURE: 07/08/2021 Age: 61 Gender: Height: Weight: Patient location: Emergency department (ED). REFERRING PHYSICIAN: Ernst Vale D.O. INDICATION: Congestive heart failure. 2D MEASUREMENTS: IVS 1.1 cm LV 3.9 cm LVPW 0.9 cm LA 3.2 cm Aorta 3.6 cm DOPPLER MEASUREMENTS: Peak velocity across the tricuspid valve 2.9 m/s 2D COMMENTS: 1. Normal left ventricular size, wall thickness, and normal global left ventricular systolic function. The estimated left ventricular systolic ejection fraction is 60%-65%. 2. Normal left atrium. The right atrium and the right ventricle appeared to be enlarged. The right ventricular free wall appeared to be mildly hypokinetic. 3. The atrial septum did not reveal any evidence of shunt by Doppler. 4. Normal aortic root. 5. No pericardial effusion seen. 6. The aortic valve, mitral valve, and tricuspid valve appeared to be normal. The pulmonic valve was not well visualized as well as the proximal pulmonary artery branches. 7. The inferior vena cava was not well visualized. DOPPLER: It detected trace mitral regurgitation and mild to moderate tricuspid regurgitation. The calculated pulmonary artery systolic pressure varies between 40-50 mmHg but may be underestimated. Assessment of the left ventricular diastolic function was inconclusive due to underlying atrial fibrillation. IMPRESSION: 1. Normal global left ventricular systolic function. 2. Trace mitral regurgitation. 3. Mild to moderate tricuspid regurgitation with moderate pulmonary hypertension and dilated right heart chambers. 4. The study was technically limited due to poor acoustic window. 5. Patient was in atrial fibrillation during the test.
== END 2021-07-10 11:32 | disposition home or self-care (01) | DRG 292 ==
LOC: EDBD 14:40 → M ED 14:40 → M ED INP 17:34 → ENRESERV 07-08 13:21 → M MSPAV 07-08 15:29
PROVIDERS: ADMIT Family Medicine; ATTEND Family Medicine
DX: I50.33 Acute on chronic diastolic (congestive) heart failure (principal); I48.11 Longstanding persistent atrial fibrillation; E46 Unspecified protein-calorie malnutrition; Z68.1 Body mass index [BMI] 19.9 or less, adult; Z87.81 Personal history of (healed) traumatic fracture; Z85.818 Personal history of malignant neoplasm of other sites of lip, oral cavity, and pharynx; F17.210 Nicotine dependence, cigarettes, uncomplicated; Z92.3 Personal history of irradiation; Z79.899 Other long term (current) drug therapy

== ENCOUNTER → 2021-07-14 | Outpatient (CLI) | payer OTHER ==
[~2021-07-14] MED LIST changes: +ERGO500029 PO; +FURO20TA2 PO; +K-TA10TA2 PO; +MAGN250T7 PO
--- NOTE | 2021-07-14 13:04 | REP ---
INDICATION: NICOTINE DEPENDENCE. COMPARISON: Multiple the latest 09/09/2020 standard noncontrast enhanced chest CT TECHNIQUE: Axial noncontrast images from the thoracic inlet to the upper abdomen using low-dose lung screening technique (LDCT). As per the protocol only lung window images were sent to the read station for interpretation FINDINGS: There is biapical pleuroparenchymal scarring and emphysematous change status quo. The pleural effusions seen on the prior exam have resolved. There are scattered asymmetric and patchy lung field densities bilaterally. These were for the most part obscured in the lung base area by the previous pleural effusions. The aerated portions of the lungs on the prior exam did show these abnormal opacities, however, they have improved in the right middle and right upper lobe region but have increased in the lingula and left upper lobe region. Grossly, the mediastinum and pulmonary lidya are unchanged. Note is again made of mediastinal adenopathy. Grossly, the imaged upper abdomen and imaged osseous structures are unchanged. IMPRESSION: There is no revised Fleischner society criteria on the recommendation for follow-up of such aforementioned findings. Follow-up should be based on clinical assessment and using standard diagnostic chest CT. <Electronically signed by Rolando Gibson > 07/14/21 1910
== END ==
LOC: M RAD 09:46
PROVIDERS: ATTEND Nurse Practitioner Family
DX: Z87.891 Personal history of nicotine dependence (principal)

== ENCOUNTER → 2022-01-21 | Outpatient (CLI) | payer OTHER | LOC: M PLAIMG 12:44 | PROVIDERS: ATTEND Nurse Practitioner Family | DX: J44.9 Chronic obstructive pulmonary disease, unspecified (principal) ==

== ENCOUNTER → 2022-05-24 | Outpatient (CLI) | payer OTHER | LOC: M PLAIMG 10:57 | PROVIDERS: ATTEND Nurse Practitioner Family | DX: J90 Pleural effusion, not elsewhere classified (principal) ==

== ENCOUNTER 2022-11-13 18:20 | Inpatient (IN) | payer SELFPAY ==
[~2022-11-13] VITALS: Ht 182.9 cm; Wt 50.6 kg
[2022-11-13] MEDS ORDERED: NS 1,000 ML IV ONE ×2 (19:15→22:00)
[2022-11-13] MEDS ORDERED: ONDANSETRON 4MG 2ML VIAL IV ONE (19:15)
[2022-11-13] MEDS ORDERED: DIGOXIN INJ 0.5 MG/2 ML AMP IV STA (19:16)
[2022-11-13 20:12] LABS: BASO % 0.8 % (0.0-1.0); EOS # 0.1 10^3/uL (0.0-0.5); HEMATOCRIT 41.7 % (42.0-52.0); HEMOGLOBIN 14.9 g/dl (13.5-17.5); LYMPH # 0.8 10^3/uL (1.5-5.0); LYMPH % 15.4 % (24.0-44.0); MEAN CORPUSCULAR HEMOGLOBIN 37.4 pg (27.0-33.0); MEAN CORPUSCULAR HGB CONC 35.7 g/dl (32.0-36.5); MEAN CORPUSCULAR VOLUME 104.8 fl (80.0-96.0); MONO # 0.5 10^3/uL (0.0-0.8); MONO % 10.4 % (2.0-8.0); NEUTROPHILS # 3.8 10^3/uL (1.5-8.5); NEUTROPHILS % 71.8 % (36.0-66.0); PLATELET COUNT, AUTOMATED 109 10^3/uL (150-450); RED BLOOD COUNT 3.98 10^6/uL (4.30-6.10); WHITE BLOOD COUNT 5.2 10^3/uL (4.0-10.0)
[2022-11-13 20:31] LABS: LIPASE 20 U/L (12-53)
[2022-11-13] MEDS: METOPROLOL 5 MG/5 ML VIAL IV SCH ×3 (20:31→20:59)
[2022-11-13 20:33] LABS: ALKALINE PHOSPHATASE 136 U/L (46-116); ALT/SGPT 86 U/L (7.0-40); AST/SGOT 169 U/L (<34); BILIRUBIN,TOTAL 1.4 MG/DL (0.3-1.2); BLOOD UREA NITROGEN 11 MG/DL (9-23); CALCIUM LEVEL 8.9 MG/DL (8.3-10.6); CARBON DIOXIDE LEVEL 31 MMOL/L (20-31); CHLORIDE LEVEL 92 MMOL/L (98-107); CREATININE FOR GFR 0.51 MG/DL (0.70-1.30); GLOMERULAR FILTRATION RATE > 60.0 (>49); GLUCOSE, FASTING 92 MG/DL (74-106); SODIUM LEVEL 135 MMOL/L (136-145); TOTAL PROTEIN 6.5 G/DL (5.7-8.2)
[2022-11-13 20:45] LABS: RSV AMPLIFICATION NEGATIVE (NEGATIVE)
[2022-11-13] MEDS ORDERED: ISOVUE-370 76% 100ML VIAL As Ordered ONE (20:58)
[2022-11-13] MEDS ORDERED: HOME MED LIST COMPLETE! XX SCH (22:35)
[2022-11-13] MEDS ORDERED: METOCLOPRAMIDE INJ 10MG/2ML VIAL IV PRN (22:50)
[2022-11-13] MEDS ORDERED: NS 1,000 ML IV SCH (22:50)
[2022-11-13] MEDS ORDERED: ALBUTEROL SULFATE 2.5MG/0.5ML INH NEB SOLN NEB PRN (22:50)
[2022-11-13 22:52] LABS: APPEARANCE, URINE HAZY (CLEAR); BACTERIA, URINE AUTO 2+ (NEGATIVE); BILIRUBIN, URINE AUTO NEGATIVE (NEGATIVE); BLOOD, URINE BLOOD 1+ (NEGATIVE); COLOR, URINE AMBER (YELLOW); GLUCOSE, URINE (UA) AUTO NEGATIVE (NEGATIVE); KETONE, URINE AUTO TRACE mg/dL (NEGATIVE); LEUKOCYTE ESTERASE, URINE AUTO TRACE (NEGATIVE); MUCUS, URINE SMALL (NEGATIVE); NITRITE, URINE AUTO NEGATIVE (NEGATIVE); PROTEIN, URINE AUTO NEGATIVE (NEGATIVE); RBC, URINE AUTO 1 /HPF (0-3); SQUAMOUS EPITHELIAL CELL UR AU 0 /HPF (0-6); WBC, URINE AUTO 6 /HPF (0-3)
[2022-11-14] VITALS (9 sets, daily range): BP systolic 94–134; BP diastolic 52–88
[2022-11-14] MEDS: PANTOPRAZOLE 40MG VIAL IV SCH ×2 (01:00→09:19)
[2022-11-14] MEDS ORDERED: IPRATROPIUM 0.5MG/ALBUTEROL 2.5MG INH SOL UD 3ML (DUONEB) NEB SCH (02:00)
[2022-11-14] MEDS ORDERED: METOPROLOL TART 25 MG TABLET PO ONE (03:50)
[2022-11-14 05:10] LABS: INR 1.02; PROTHROMBIN TIME 13.6 SECONDS (12.5-14.5)
[2022-11-14 05:31] LABS: HEMATOCRIT 35.3 % (42.0-52.0); HEMOGLOBIN 12.4 g/dl (13.5-17.5); MEAN CORPUSCULAR HEMOGLOBIN 37.5 pg (27.0-33.0); MEAN CORPUSCULAR HGB CONC 35.1 g/dl (32.0-36.5); MEAN CORPUSCULAR VOLUME 106.6 fl (80.0-96.0); RED BLOOD COUNT 3.31 10^6/uL (4.30-6.10); WHITE BLOOD COUNT 4.2 10^3/uL (4.0-10.0)
[2022-11-14 06:32] LABS: ALBUMIN 2.6 G/DL (3.2-5.2); ALKALINE PHOSPHATASE 116 U/L (46-116); ALT/SGPT 71 U/L (7.0-40); AST/SGOT 140 U/L (<34); BILIRUBIN,TOTAL 1.5 MG/DL (0.3-1.2); BLOOD UREA NITROGEN 9 MG/DL (9-23); CALCIUM LEVEL 7.8 MG/DL (8.3-10.6); CARBON DIOXIDE LEVEL 30 MMOL/L (20-31); CHLORIDE LEVEL 96 MMOL/L (98-107); CREATININE FOR GFR 0.54 MG/DL (0.70-1.30); GLOMERULAR FILTRATION RATE > 60.0 (>49); GLUCOSE, FASTING 67 MG/DL (74-106); MAGNESIUM LEVEL 1.3 MG/DL (1.8-2.4); POTASSIUM SERUM 3.6 MMOL/L (3.5-5.1); SODIUM LEVEL 135 MMOL/L (136-145)
[2022-11-14] MEDS: MAG SULF 1GM/100ML (MAG RUN) 1 GM in IV 1 EA IV SCH ×3 (09:19→11:55)
[2022-11-14 09:21] LABS: TOTAL PROTEIN 5.7 G/DL (5.7-8.2)
[2022-11-14] MEDS ORDERED: NS 1,000 ML IV SCH (10:30)
[2022-11-14 11:03] LABS: LDH LACTATE DEHYDROGENASE 229 U/L (120-246)
[2022-11-14] MEDS ORDERED: IPRATROPIUM 0.5MG/ALBUTEROL 2.5MG INH SOL UD 3ML (DUONEB) NEB PRN (11:20)
[2022-11-14] MEDS: TIOTROPIUM INHALER/CAPSULE (SPIRIVA) INH SCH (11:35)
[2022-11-14] MEDS: THIAMINE 100 MG TAB PO SCH ×2 (11:55→20:49)
[2022-11-14] MEDS: MULTIVITAMINS/MINERALS THERAP 1 TAB PO SCH (11:55)
[2022-11-14] MEDS: FOLIC ACID 1MG TAB PO SCH (11:56)
[2022-11-14] MEDS: METOPROLOL TART 25 MG TABLET PO SCH ×2 (11:56→20:53)
[2022-11-14] MEDS ORDERED: LIDOCAINE 1% MDV 20ML VIAL As Ordered ONE (14:19)
[2022-11-14 15:03] LABS: PH BODY FLUID 7.633 UNITS (NOT ESTABLISHED); SOURCE, BODY FLUID pH PLEURAL
[2022-11-14 15:24] LABS: APPEARANCE, BODY FLUID HAZY (CLEAR); PLEURAL FL COLOR YELLOW (COLORLESS); SOURCE, BODY FLUID PLEURAL
[2022-11-14 17:05] LABS: SOURCE, BODY FLUID GLUCOSE PLEURAL
[2022-11-14 17:06] LABS: AMYLASE, BODY FLUID 45 U/L (NOT ESTABLISHED); SOURCE, BODY FLUID AMYLASE PLEURAL
[2022-11-14 17:07] LABS: LDH, BODY FLUID 192 U/L (NOT ESTABLISHED); SOURCE, BODY FLUID LDH PLEURAL; SOURCE, BODY FLUID TOT PROTEIN PLEURAL; TOTAL PROTEIN, BODY FLUID 2.8 G/DL (NOT ESTABLISHED)
[2022-11-14] MEDS: MORPHINE 2 MG/ML 1ML VIAL IV PRN (18:10)
[2022-11-14] MEDS: MAGNESIUM OXIDE 400MG TAB (MAG-OX) PO SCH (20:49)
[2022-11-15] VITALS: BP 91/56
[2022-11-15 04:00] VITALS: BP 104/67
[2022-11-15 05:50] LABS: HEMATOCRIT 32.1 % (42.0-52.0); HEMOGLOBIN 11.3 g/dl (13.5-17.5); MEAN CORPUSCULAR HEMOGLOBIN 37.3 pg (27.0-33.0); MEAN CORPUSCULAR HGB CONC 35.2 g/dl (32.0-36.5); MEAN CORPUSCULAR VOLUME 105.9 fl (80.0-96.0); RED BLOOD COUNT 3.03 10^6/uL (4.30-6.10); WHITE BLOOD COUNT 5.1 10^3/uL (4.0-10.0)
[2022-11-15 06:19] LABS: ALBUMIN 2.2 G/DL (3.2-5.2); ALKALINE PHOSPHATASE 103 U/L (46-116); ALT/SGPT 50 U/L (7.0-40); AST/SGOT 82 U/L (<34); BILIRUBIN,TOTAL 1.2 MG/DL (0.3-1.2); BLOOD UREA NITROGEN 10 MG/DL (9-23); CALCIUM LEVEL 7.5 MG/DL (8.3-10.6); CARBON DIOXIDE LEVEL 29 MMOL/L (20-31); CHLORIDE LEVEL 95 MMOL/L (98-107); CREATININE FOR GFR 0.53 MG/DL (0.70-1.30); GLOMERULAR FILTRATION RATE > 60.0 (>49); GLUCOSE, FASTING 80 MG/DL (74-106); POTASSIUM SERUM 3.2 MMOL/L (3.5-5.1); SODIUM LEVEL 131 MMOL/L (136-145); TOTAL PROTEIN 4.7 G/DL (5.7-8.2)
[2022-11-15 06:23] LABS: PLATELET COUNT, AUTOMATED 80 10^3/uL (150-450)
[2022-11-15] MEDS: TIOTROPIUM INHALER/CAPSULE (SPIRIVA) INH SCH (07:08)
[2022-11-15 07:21] VITALS: BP 114/75
[2022-11-15 07:23] LABS: MAGNESIUM LEVEL 1.6 MG/DL (1.8-2.4)
[2022-11-15] MEDS: METOPROLOL TART 25 MG TABLET PO SCH ×2 (08:58→20:50)
[2022-11-15] MEDS: MAGNESIUM OXIDE 400MG TAB (MAG-OX) PO SCH ×2 (08:58→20:49)
[2022-11-15] MEDS: FOLIC ACID 1MG TAB PO SCH (08:58)
[2022-11-15] MEDS: PANTOPRAZOLE 40MG TAB (PROTONIX) PO SCH (08:58)
[2022-11-15] MEDS: KCL 10MEQ/100ML SWI (KRUN) 10 MEQ in IV 1 EA IV SCH ×3 (08:59→12:40)
[2022-11-15] MEDS: MORPHINE 2 MG/ML 1ML VIAL IV PRN (08:59)
[2022-11-15] MEDS: MULTIVITAMINS/MINERALS THERAP 1 TAB PO SCH (08:59)
[2022-11-15] MEDS: THIAMINE 100 MG TAB PO SCH ×2 (08:59→20:50)
[2022-11-15] MEDS ORDERED: MAGNESIUM OXIDE 400MG TAB (MAG-OX) PO SCH (09:00)
[2022-11-15] MEDS ORDERED: ENOXAPARIN 40MG/0.4ML SYRINGE (J1650 PER 10MG) SC SCH (09:00)
[2022-11-15] MEDS: MAG SULF 1GM/100ML (MAG RUN) 1 GM in IV 1 EA IV SCH ×2 (11:01→12:40)
[2022-11-15] MEDS: NICOTINE 7 MG/24 HR TRANSDERMAL TD SCH (12:44)
[2022-11-15 16:00] VITALS: BP 108/70
[2022-11-15] MEDS ORDERED: MAG SULF 1GM/100ML (MAG RUN) 1 GM in IV 1 EA IV SCH (17:40)
[2022-11-15 20:01] VITALS: BP 115/79
[2022-11-15] MEDS: PERCOCET 5MG/325MG TAB PO PRN (20:49)
[2022-11-15] MEDS: APIXABAN 5 MG TAB (ELIQUIS) PO SCH (20:50)
[2022-11-15 22:43] VITALS: BP 133/86
[2022-11-16 04:00] VITALS: BP 140/70
[2022-11-16 05:11] VITALS: BP 105/69
[2022-11-16 05:29] LABS: BASO % 0.6 % (0.0-1.0); EOS # 0.1 10^3/uL (0.0-0.5); EOS % 1.3 % (0.0-3.0); HEMOGLOBIN 11.2 g/dl (13.5-17.5); LYMPH # 0.8 10^3/uL (1.5-5.0); LYMPH % 11.8 % (24.0-44.0); MEAN CORPUSCULAR HEMOGLOBIN 36.7 pg (27.0-33.0); MEAN CORPUSCULAR VOLUME 104.9 fl (80.0-96.0); MONO # 0.8 10^3/uL (0.0-0.8); MONO % 10.8 % (2.0-8.0); NEUTROPHILS # 5.3 10^3/uL (1.5-8.5); NEUTROPHILS % 74.8 % (36.0-66.0); PLATELET COUNT, AUTOMATED 78 10^3/uL (150-450); RED BLOOD COUNT 3.05 10^6/uL (4.30-6.10); WHITE BLOOD COUNT 7.1 10^3/uL (4.0-10.0)
[2022-11-16 05:54] LABS: ALBUMIN 2.1 G/DL (3.2-5.2); ALKALINE PHOSPHATASE 86 U/L (46-116); ALT/SGPT 39 U/L (7.0-40); AST/SGOT 58 U/L (<34); BILIRUBIN,TOTAL 1.4 MG/DL (0.3-1.2); BLOOD UREA NITROGEN 7 MG/DL (9-23); CALCIUM LEVEL 7.7 MG/DL (8.3-10.6); CARBON DIOXIDE LEVEL 30 MMOL/L (20-31); CHLORIDE LEVEL 95 MMOL/L (98-107); CREATININE FOR GFR 0.56 MG/DL (0.70-1.30); GLOMERULAR FILTRATION RATE > 60.0 (>49); GLUCOSE, FASTING 86 MG/DL (74-106); MAGNESIUM LEVEL 1.7 MG/DL (1.8-2.4); POTASSIUM SERUM 3.6 MMOL/L (3.5-5.1); SODIUM LEVEL 132 MMOL/L (136-145); TOTAL PROTEIN 4.6 G/DL (5.7-8.2)
[2022-11-16 07:26] VITALS: BP 101/66
[2022-11-16] MEDS: TIOTROPIUM INHALER/CAPSULE (SPIRIVA) INH SCH (08:02)
[2022-11-16] MEDS: METOPROLOL TART 25 MG TABLET PO SCH ×2 (09:07→20:40)
[2022-11-16] MEDS: MAG SULF 1GM/100ML (MAG RUN) 1 GM in IV 1 EA IV SCH ×2 (09:07→10:16)
[2022-11-16] MEDS: APIXABAN 5 MG TAB (ELIQUIS) PO SCH ×2 (09:08→20:41)
[2022-11-16] MEDS: MULTIVITAMINS/MINERALS THERAP 1 TAB PO SCH (09:08)
[2022-11-16] MEDS: THIAMINE 100 MG TAB PO SCH ×2 (09:08→20:42)
[2022-11-16] MEDS: FOLIC ACID 1MG TAB PO SCH (09:08)
[2022-11-16] MEDS: MAGNESIUM OXIDE 400MG TAB (MAG-OX) PO SCH ×2 (09:08→20:42)
[2022-11-16] MEDS: NICOTINE 7 MG/24 HR TRANSDERMAL TD SCH (09:09)
[2022-11-16] MEDS: PANTOPRAZOLE 40MG TAB (PROTONIX) PO SCH (09:09)
[2022-11-16] MEDS: PERCOCET 5MG/325MG TAB PO PRN (20:43)
[2022-11-17 04:00] VITALS: BP 92/58
[2022-11-17 05:12] LABS: BASO % 0.9 % (0.0-1.0); EOS # 0.2 10^3/uL (0.0-0.5); EOS % 3.4 % (0.0-3.0); HEMATOCRIT 32.3 % (42.0-52.0); HEMOGLOBIN 11.2 g/dl (13.5-17.5); LYMPH % 21.7 % (24.0-44.0); MEAN CORPUSCULAR HEMOGLOBIN 37.2 pg (27.0-33.0); MEAN CORPUSCULAR HGB CONC 34.7 g/dl (32.0-36.5); MEAN CORPUSCULAR VOLUME 107.3 fl (80.0-96.0); MONO # 0.8 10^3/uL (0.0-0.8); MONO % 18.1 % (2.0-8.0); NEUTROPHILS # 2.5 10^3/uL (1.5-8.5); NEUTROPHILS % 55.2 % (36.0-66.0); PLATELET COUNT, AUTOMATED 102 10^3/uL (150-450); RED BLOOD COUNT 3.01 10^6/uL (4.30-6.10); WHITE BLOOD COUNT 4.5 10^3/uL (4.0-10.0)
[2022-11-17 06:23] LABS: ALBUMIN 2.1 G/DL (3.2-5.2); ALKALINE PHOSPHATASE 93 U/L (46-116); ALT/SGPT 34 U/L (7.0-40); AST/SGOT 50 U/L (<34); BLOOD UREA NITROGEN 10 MG/DL (9-23); CALCIUM LEVEL 7.9 MG/DL (8.3-10.6); CARBON DIOXIDE LEVEL 32 MMOL/L (20-31); CHLORIDE LEVEL 97 MMOL/L (98-107); CREATININE FOR GFR 0.59 MG/DL (0.70-1.30); GLOMERULAR FILTRATION RATE > 60.0 (>49); GLUCOSE, FASTING 89 MG/DL (74-106); MAGNESIUM LEVEL 1.7 MG/DL (1.8-2.4); SODIUM LEVEL 132 MMOL/L (136-145); TOTAL PROTEIN 4.8 G/DL (5.7-8.2)
[2022-11-17] MEDS: TIOTROPIUM INHALER/CAPSULE (SPIRIVA) INH SCH (07:27)
[2022-11-17] MEDS ORDERED: MAG SULF 1GM/100ML (MAG RUN) 1 GM in IV 1 EA IV ONE (08:00)
[2022-11-17] MEDS ORDERED: AUGMENTIN 875 MG TAB PO SCH (09:00)
[2022-11-17] MEDS ORDERED: NS 500 ML IV ONE (09:20)
[2022-11-17] MEDS ORDERED: NS 1,000 ML IV ONE (09:30)
[2022-11-17] MEDS: NICOTINE 7 MG/24 HR TRANSDERMAL TD SCH (09:44)
[2022-11-17] MEDS: PANTOPRAZOLE 40MG TAB (PROTONIX) PO SCH (09:45)
[2022-11-17] MEDS: APIXABAN 5 MG TAB (ELIQUIS) PO SCH ×2 (09:45→20:58)
[2022-11-17] MEDS: MULTIVITAMINS/MINERALS THERAP 1 TAB PO SCH (09:45)
[2022-11-17] MEDS: MAGNESIUM OXIDE 400MG TAB (MAG-OX) PO SCH ×2 (09:46→20:59)
[2022-11-17] MEDS: FOLIC ACID 1MG TAB PO SCH (09:46)
[2022-11-17] MEDS: METOPROLOL TART 12.5 MG PER 1/2 TAB PO SCH ×2 (09:53→21:00)
[2022-11-17 10:57] VITALS: BP 114/81
[2022-11-17 11:30] LABS: APPEARANCE, URINE HAZY (CLEAR); BACTERIA, URINE AUTO 3+ (NEGATIVE); BILIRUBIN, URINE AUTO NEGATIVE (NEGATIVE); BLOOD, URINE BLOOD 1+ (NEGATIVE); COLOR, URINE YELLOW (YELLOW); GLUCOSE, URINE (UA) AUTO NEGATIVE (NEGATIVE); KETONE, URINE AUTO NEGATIVE (NEGATIVE); LEUKOCYTE ESTERASE, URINE AUTO 3+ (NEGATIVE); NITRITE, URINE AUTO POSITIVE (NEGATIVE); PROTEIN, URINE AUTO NEGATIVE (NEGATIVE); RBC, URINE AUTO 5 /HPF (0-3); SPECIFIC GRAVITY URINE AUTO 1.009 (1.002-1.035); SQUAMOUS EPITHELIAL CELL UR AU 0 /HPF (0-6); UROBILINOGEN, URINE AUTO 0.2 mg/dL (0.0-2.0); WBC, URINE AUTO 48 /HPF (0-3)
[2022-11-17 12:30] VITALS: BP 112/77
[2022-11-17] MEDS: PERCOCET 5MG/325MG TAB PO PRN (12:43)
[2022-11-17] MEDS ORDERED: MOXIFLOXACIN 400 MG TAB PO SCH (18:00)
[2022-11-17 20:18] VITALS: BP 122/55
[2022-11-17 21:00] VITALS: BP 122/55
[2022-11-18 04:13] VITALS: BP 115/65
[2022-11-18 07:09] VITALS: BP 114/75
[2022-11-18] MEDS: TIOTROPIUM INHALER/CAPSULE (SPIRIVA) INH SCH (07:31)
[2022-11-18 07:37] LABS: BASO # 0.1 10^3/uL (0.0-0.2); BASO % 1.3 % (0.0-1.0); EOS # 0.2 10^3/uL (0.0-0.5); EOS % 3.6 % (0.0-3.0); HEMATOCRIT 30.7 % (42.0-52.0); HEMOGLOBIN 10.9 g/dl (13.5-17.5); LYMPH # 0.9 10^3/uL (1.5-5.0); MEAN CORPUSCULAR HEMOGLOBIN 38.1 pg (27.0-33.0); MEAN CORPUSCULAR HGB CONC 35.5 g/dl (32.0-36.5); MEAN CORPUSCULAR VOLUME 107.3 fl (80.0-96.0); MONO % 22.2 % (2.0-8.0); NEUTROPHILS # 2.4 10^3/uL (1.5-8.5); NEUTROPHILS % 52.5 % (36.0-66.0); PLATELET COUNT, AUTOMATED 122 10^3/uL (150-450); RED BLOOD COUNT 2.86 10^6/uL (4.30-6.10); WHITE BLOOD COUNT 4.5 10^3/uL (4.0-10.0)
[2022-11-18 07:47] LABS: ALBUMIN 2.1 G/DL (3.2-5.2); ALKALINE PHOSPHATASE 78 U/L (46-116); ALT/SGPT 31 U/L (7.0-40); AST/SGOT 40 U/L (<34); BILIRUBIN,TOTAL 0.9 MG/DL (0.3-1.2); BLOOD UREA NITROGEN 7 MG/DL (9-23); CALCIUM LEVEL 7.8 MG/DL (8.3-10.6); CARBON DIOXIDE LEVEL 29 MMOL/L (20-31); CHLORIDE LEVEL 101 MMOL/L (98-107); CREATININE FOR GFR 0.52 MG/DL (0.70-1.30); GLOMERULAR FILTRATION RATE > 60.0 (>49); GLUCOSE, FASTING 89 MG/DL (74-106); MAGNESIUM LEVEL 1.6 MG/DL (1.8-2.4); SODIUM LEVEL 134 MMOL/L (136-145); TOTAL PROTEIN 4.7 G/DL (5.7-8.2)
[2022-11-18] MEDS: METOPROLOL TART 12.5 MG PER 1/2 TAB PO SCH (08:34)
[2022-11-18] MEDS: MULTIVITAMINS/MINERALS THERAP 1 TAB PO SCH (08:35)
[2022-11-18] MEDS: FOLIC ACID 1MG TAB PO SCH (08:35)
[2022-11-18] MEDS: PANTOPRAZOLE 40MG TAB (PROTONIX) PO SCH (08:35)
[2022-11-18] MEDS: NICOTINE 7 MG/24 HR TRANSDERMAL TD SCH (08:35)
[2022-11-18] MEDS: APIXABAN 5 MG TAB (ELIQUIS) PO SCH (08:35)
[2022-11-18] MEDS: MAGNESIUM OXIDE 400MG TAB (MAG-OX) PO SCH (08:35)
[2022-11-18] MEDS: MAG SULF 1GM/100ML (MAG RUN) 1 GM in IV 1 EA IV SCH ×2 (10:22→11:14)
[2022-11-18] MEDS ORDERED: PERCOCET PO (11:15)
[2022-11-18] MEDS ORDERED: ELIQ5TAB PO (11:15)
[2022-11-18] MEDS ORDERED: MAGN400T2 PO (11:15)
[2022-11-18] MEDS ORDERED: FOLI1TAB11 PO (11:15)
[2022-11-18] MEDS ORDERED: VENTAER INH (11:15)
[2022-11-18] MEDS ORDERED: MOXI400T11 PO (11:15)
[2022-11-18] MEDS ORDERED: PANT40TA29 PO (11:15)
[2022-11-18] MEDS ORDERED: SPIR1CAP INH (11:15)
[2022-11-18] MEDS ORDERED: VITMTA PO (11:15)
[2022-11-18] MEDS ORDERED: METO1TAB87 PO (11:15)
[2022-11-18 12:00] VITALS: BP 102/58
[2022-11-18 16:00] VITALS: BP 105/58
== END 2022-11-18 17:18 | disposition home health service (06) | DRG 249 ==
LOC: M ED 18:20 → M ED INP 22:50 → M PCU 11-14 00:17
PROVIDERS: ADMIT Internal Medicine; ATTEND Internal Medicine
PROC: 0W993ZX Drainage of Right Pleural Cavity, Percutaneous Approach, Diagnostic (ICD-10-PCS; principal; 2022-11-14 15:00)
PROC: B246ZZZ Ultrasonography of Right and Left Heart (ICD-10-PCS; 2022-11-15)
DX: A08.11 Acute gastroenteropathy due to Norwalk agent (principal); J90 Pleural effusion, not elsewhere classified; E87.20 Acidosis, unspecified; K76.6 Portal hypertension; I27.20 Pulmonary hypertension, unspecified; D69.6 Thrombocytopenia, unspecified; I95.9 Hypotension, unspecified; I48.91 Unspecified atrial fibrillation; K80.20 Calculus of gallbladder without cholecystitis without obstruction; E83.42 Hypomagnesemia; R13.12 Dysphagia, oropharyngeal phase; K74.60 Unspecified cirrhosis of liver; R74.01 Elevation of levels of liver transaminase levels; F17.210 Nicotine dependence, cigarettes, uncomplicated; F10.20 Alcohol dependence, uncomplicated; R91.8 Other nonspecific abnormal finding of lung field; J44.9 Chronic obstructive pulmonary disease, unspecified; Z66 Do not resuscitate; Z92.3 Personal history of irradiation; Z92.21 Personal history of antineoplastic chemotherapy; Z85.819 Personal history of malignant neoplasm of unspecified site of lip, oral cavity, and pharynx; Z91.120 Patient's intentional underdosing of medication regimen due to financial hardship

== ENCOUNTER 2023-05-12 07:30 | Inpatient (IN) | payer OTHER, SELFPAY ==
[~2023-05-12] VITALS: Ht 182.9 cm; Wt 54.0 kg
[~2023-05-12 07:30] MED LIST changes: +ELIQ5TAB PO; -K-TA10TA2 PO; +MOXI400T11 PO; +PERCOCET PO; +POTA-165 PO; +VENTAER INH; +VITMTA PO
[2023-05-12] MEDS ORDERED: methylPREDNISolone 125MG 2ML VIAL IV ONE (07:40)
[2023-05-12] MEDS ORDERED: IPRATROPIUM 0.5MG/ALBUTEROL 2.5MG INH SOL UD 3ML (DUONEB) NEB ONE (07:40)
[2023-05-12] MEDS: TIOTROPIUM INHALER/CAPSULE (SPIRIVA) INH SCH (08:00)
[2023-05-12] MEDS: SYMBICORT 160/4.5MCG INHALER 6GM INH SCH ×2 (08:00→19:02)
[2023-05-12 08:11] LABS: ABG BASE EXCESS -2.9 (-2.0-2.0); ABG O2 SATURATION 98.7 % (95.0-99.0); ABG PARTIAL PRESSURE CO2 30.1 mmHg (35.0-45.0); ABG PARTIAL PRESSURE O2 129.5 mmHg (75.0-100.0); ABG STANDARD HCO3 22.1 MMOL/L. (22.0-26.0); ABG TOTAL CO2 20.9 MMOL/L (23.0-31.0)
[2023-05-12] MEDS ORDERED: DIGOXIN INJ 0.5 MG/2 ML AMP IV STA ×2 (08:13→12:06)
[2023-05-12] MEDS ORDERED: ISOVUE-370 76% 100ML VIAL As Ordered ONE (08:18)
[2023-05-12 08:28] LABS: BASO % 0.2 % (0.0-1.0); EOS % 0.2 % (0.0-3.0); HEMATOCRIT 40.7 % (42.0-52.0); HEMOGLOBIN 14.6 g/dl (13.5-17.5); LYMPH # 0.7 10^3/uL (1.5-5.0); LYMPH % 5.6 % (24.0-44.0); MEAN CORPUSCULAR HEMOGLOBIN 37.7 pg (27.0-33.0); MEAN CORPUSCULAR HGB CONC 35.9 g/dl (32.0-36.5); MEAN CORPUSCULAR VOLUME 105.2 fl (80.0-96.0); MONO # 1.2 10^3/uL (0.0-0.8); NEUTROPHILS % 83.2 % (36.0-66.0); PLATELET COUNT, AUTOMATED 190 10^3/uL (150-450); RED BLOOD COUNT 3.87 10^6/uL (4.30-6.10)
[2023-05-12 08:39] LABS: INR 1.22
[2023-05-12 08:40] LABS: PARTIAL THROMBOPLASTIN TIME 32.3 SECONDS (24.8-34.2)
[2023-05-12 08:55] LABS: ALKALINE PHOSPHATASE 148 U/L (46-116); ALT/SGPT 39 U/L (7.0-40); AST/SGOT 50 U/L (<34); BILIRUBIN,DIRECT 1.7 MG/DL (<0.4); BILIRUBIN,TOTAL 2.4 MG/DL (0.3-1.2); BLOOD UREA NITROGEN 28 MG/DL (9-23); CALCIUM LEVEL 8.9 MG/DL (8.3-10.6); CARBON DIOXIDE LEVEL 23 MMOL/L (20-31); CHLORIDE LEVEL 86 MMOL/L (98-107); CK-MB VALUE MASS 1.6 NG/ML (<3.6); CPK CREATINE PHOSPHOKINASE 96 U/L (46-171); CREATININE FOR GFR 0.61 MG/DL (0.70-1.30); GLOMERULAR FILTRATION RATE > 60.0 (>49); GLUCOSE, FASTING 94 MG/DL (74-106); MB/CK RELATIVE INDEX 1.66 (< OR =4); POTASSIUM SERUM 4.7 MMOL/L (3.5-5.1); SODIUM LEVEL 120 MMOL/L (136-145); TOTAL PROTEIN 6.7 G/DL (5.7-8.2)
[2023-05-12 08:56] LABS: THYROXINE (T4) 6.9 UG/DL (4.5-10.9)
[2023-05-12 08:57] LABS: THYROID STIMULATING HORMONE 7.541 uIU/ML (0.55-4.78)
[2023-05-12 09:05] LABS: DIGOXIN LEVEL < 0.1 NG/ML (0.8-2.0); MAGNESIUM LEVEL 1.5 MG/DL (1.8-2.4)
[2023-05-12] MEDS ORDERED: cefTRIAXone SOD 1 GM in D5W MINI-BAG PLUS 50 ML IV ONE (09:05)
[2023-05-12] MEDS ORDERED: AZITHROMYCIN INJ 500 MG, VIAL MATE ADAPTER 1 EACH in D5W 250 ML IV ONE (09:05)
[2023-05-12] MEDS ORDERED: MAG SULF 1GM/100ML (MAG RUN) 1 GM in IV 1 EA IV ONE ×2 (09:15→14:00)
[2023-05-12 09:36] LABS: CK-MB VALUE MASS 1.9 NG/ML (<3.6); FREE T4 1.19 NG/DL (0.89-1.76); MB/CK RELATIVE INDEX 1.31 (< OR =4)
[2023-05-12] MEDS ORDERED: MED REC IN PROGRESS XX SCH (11:25)
[2023-05-12] MEDS ORDERED: MOM 30ML SUSPENSION UDC PO PRN (11:30)
[2023-05-12] MEDS ORDERED: MAALOX 30 ML SUSP *UDC PO PRN (11:30)
[2023-05-12] MEDS ORDERED: ACETAMINOPHEN TAB 650MG DOSE (2X325MG) PO PRN (11:30)
[2023-05-12] MEDS ORDERED: VANCOMYCIN HCL 1,000 MG in IV FLUID PLACE HOLDER 1 EA IV SCH (11:45)
[2023-05-12] MEDS ORDERED: PIPERACILLIN/TAZOBACTAM SOD 3.375 GM in D5W MINI-BAG PLUS 50 ML IV SCH (11:45)
[2023-05-12] MEDS ORDERED: ENOXAPARIN 100MG/1ML SYRINGE (J1650 PER 10MG) SC ONE (12:30)
[2023-05-12] MEDS ORDERED: ALBU8.5H INH (12:31)
[2023-05-12] MEDS ORDERED: ALBU2.5V10 INH (12:31)
[2023-05-12] MEDS ORDERED: MED HIST COMMENT (12:31)
[2023-05-12] MEDS ORDERED: FLUT1BLS8 PO (12:31)
[2023-05-12] MEDS ORDERED: HOME MED LIST COMPLETE! XX SCH (12:35)
[2023-05-12 12:49] LABS: BLOOD UREA NITROGEN 26 MG/DL (9-23); CALCIUM LEVEL 8.2 MG/DL (8.3-10.6); CARBON DIOXIDE LEVEL 21 MMOL/L (20-31); CHLORIDE LEVEL 89 MMOL/L (98-107); CREATININE FOR GFR 0.55 MG/DL (0.70-1.30); GLOMERULAR FILTRATION RATE > 60.0 (>49); GLUCOSE, FASTING 117 MG/DL (74-106); POTASSIUM SERUM 4.8 MMOL/L (3.5-5.1); SODIUM LEVEL 121 MMOL/L (136-145)
[2023-05-12 12:56] LABS: PROCALCITONIN 0.16 ng/ml
[2023-05-12] MEDS ORDERED: VANCOMYCIN HCL 750 MG, VIAL MATE ADAPTER 1 EACH in D5W 250 ML IV ONE ×2 (13:00→14:00)
[2023-05-12] MEDS: LEVALBUTEROL 1.25MG 0.5ML CONCENTRATE NEB INH SCH ×2 (14:00→19:02)
[2023-05-12 14:08] LABS: APPEARANCE, URINE CLEAR (CLEAR); BACTERIA, URINE AUTO 3+ (NEGATIVE); BILIRUBIN, URINE AUTO NEGATIVE (NEGATIVE); BLOOD, URINE BLOOD 1+ (NEGATIVE); COLOR, URINE YELLOW (YELLOW); GLUCOSE, URINE (UA) AUTO NEGATIVE (NEGATIVE); KETONE, URINE AUTO TRACE mg/dL (NEGATIVE); LEUKOCYTE ESTERASE, URINE AUTO TRACE (NEGATIVE); MUCUS, URINE LARGE (NEGATIVE); NITRITE, URINE AUTO POSITIVE (NEGATIVE); PROTEIN, URINE AUTO NEGATIVE (NEGATIVE); RBC, URINE AUTO 1 /HPF (0-3); SPECIFIC GRAVITY URINE AUTO 1.048 (1.002-1.035); SQUAMOUS EPITHELIAL CELL UR AU 0 /HPF (0-6); WBC, URINE AUTO 11 /HPF (0-3)
[2023-05-12] MEDS ORDERED: LORazepam 2 MG TAB PO PRN (16:00)
[2023-05-12] MEDS: MULTIVITAMINS/MINERALS THERAP 1 TAB PO SCH (16:14)
[2023-05-12] MEDS: FOLIC ACID 1MG TAB PO SCH (16:14)
[2023-05-12 17:00] VITALS: BP 150/99; TEMP 97.9; O2SAT 92
[2023-05-12 17:37] VITALS: BP 150/99
[2023-05-12 17:43] LABS: BLOOD UREA NITROGEN 24 MG/DL (9-23); CALCIUM LEVEL 8.3 MG/DL (8.3-10.6); CARBON DIOXIDE LEVEL 23 MMOL/L (20-31); CHLORIDE LEVEL 86 MMOL/L (98-107); CREATININE FOR GFR 0.48 MG/DL (0.70-1.30); GLOMERULAR FILTRATION RATE > 60.0 (>49); GLUCOSE, FASTING 129 MG/DL (74-106); SODIUM LEVEL 120 MMOL/L (136-145)
[2023-05-12] MEDS: THIAMINE 100 MG TAB PO SCH (17:51)
[2023-05-12] MEDS: PIPERACILLIN/TAZOBACTAM SOD 4.5 GM in D5W MINI-BAG PLUS 50 ML IV SCH ×2 (17:51→22:31)
[2023-05-12] MEDS: FUROSEMIDE injection 250 MG in D5W 225 ML IV SCH (18:30)
[2023-05-12] MEDS ORDERED: DIGOXIN INJ 0.5 MG/2 ML AMP IV ONE (18:30)
[2023-05-12 20:40] VITALS: BP 164/74; TEMP 97.6; O2SAT 91
[2023-05-12] MEDS: CLOTRIMAZOLE 1% TOPICAL CREAM 30GM TOP SCH (21:15)
[2023-05-12] MEDS ORDERED: METOPROLOL TART 25 MG TABLET PO ONE (21:40)
[2023-05-12] MEDS ORDERED: PILL CUTTER 1 EACH XX PRN (21:50)
[2023-05-12] MEDS ORDERED: VANCOMYCIN HCL 750 MG, VIAL MATE ADAPTER 1 EACH in D5W 250 ML IV SCH (22:00)
[2023-05-12] MEDS ORDERED: bisoproloL fumarate 5 MG TAB PO ONE (22:10)
[2023-05-13] VITALS (27 sets, daily range): BP systolic 98–140; BP diastolic 54–99; TEMP 97.1–98.1; O2SAT 91–99
[2023-05-13 00:38] LABS: BLOOD UREA NITROGEN 20 MG/DL (9-23); CALCIUM LEVEL 8.1 MG/DL (8.3-10.6); CARBON DIOXIDE LEVEL 25 MMOL/L (20-31); CHLORIDE LEVEL 88 MMOL/L (98-107); CREATININE FOR GFR 0.55 MG/DL (0.70-1.30); GLOMERULAR FILTRATION RATE > 60.0 (>49); GLUCOSE, FASTING 85 MG/DL (74-106); POTASSIUM SERUM 4.2 MMOL/L (3.5-5.1); SODIUM LEVEL 123 MMOL/L (136-145)
[2023-05-13] MEDS: LEVALBUTEROL 1.25MG 0.5ML CONCENTRATE NEB INH SCH ×4 (01:36→19:20)
[2023-05-13] MEDS: PIPERACILLIN/TAZOBACTAM SOD 4.5 GM in D5W MINI-BAG PLUS 50 ML IV SCH ×4 (05:00→18:11)
[2023-05-13 06:15] LABS: HEMATOCRIT 35.5 % (42.0-52.0); HEMOGLOBIN 12.9 g/dl (13.5-17.5); MEAN CORPUSCULAR HEMOGLOBIN 37.8 pg (27.0-33.0); MEAN CORPUSCULAR HGB CONC 36.3 g/dl (32.0-36.5); MEAN CORPUSCULAR VOLUME 104.1 fl (80.0-96.0); PLATELET COUNT, AUTOMATED 158 10^3/uL (150-450); RED BLOOD COUNT 3.41 10^6/uL (4.30-6.10); WHITE BLOOD COUNT 17.9 10^3/uL (4.0-10.0)
[2023-05-13 06:46] LABS: BLOOD UREA NITROGEN 19 MG/DL (9-23); CALCIUM LEVEL 8.1 MG/DL (8.3-10.6); CARBON DIOXIDE LEVEL 26 MMOL/L (20-31); CHLORIDE LEVEL 87 MMOL/L (98-107); CREATININE FOR GFR 0.58 MG/DL (0.70-1.30); GLOMERULAR FILTRATION RATE > 60.0 (>49); GLUCOSE, FASTING 68 MG/DL (74-106); MAGNESIUM LEVEL 1.4 MG/DL (1.8-2.4); POTASSIUM SERUM 3.4 MMOL/L (3.5-5.1); SODIUM LEVEL 125 MMOL/L (136-145)
[2023-05-13 07:05] LABS: ATYPICAL LYMPH 2 % (0-5); BASOPHILS 2 % (0-1); MONOCYTES 5 % (0-5); NEUTROPHILS 88 % (28-66); PLATELET ESTIMATE NORMAL (NORMAL)
[2023-05-13 07:06] LABS: TOXIC VACUOLATION 1+
[2023-05-13] MEDS: TIOTROPIUM INHALER/CAPSULE (SPIRIVA) INH SCH (07:18)
[2023-05-13] MEDS: SYMBICORT 160/4.5MCG INHALER 6GM INH SCH ×2 (07:19→19:20)
[2023-05-13] MEDS: MAG SULF 1GM/100ML (MAG RUN) 1 GM in IV 1 EA IV SCH ×4 (08:29→16:11)
[2023-05-13] MEDS: THIAMINE 100 MG TAB PO SCH ×2 (08:33→20:42)
[2023-05-13] MEDS: FOLIC ACID 1MG TAB PO SCH (08:33)
[2023-05-13] MEDS: DIGOXIN 0.25 MG TAB PO SCH (08:33)
[2023-05-13] MEDS: MULTIVITAMINS/MINERALS THERAP 1 TAB PO SCH (08:33)
[2023-05-13] MEDS: CLOTRIMAZOLE 1% TOPICAL CREAM 30GM TOP SCH ×2 (08:34→20:39)
[2023-05-13] MEDS: NICOTINE 21MG/24HR 1 EA TRANSDERMAL TD PRN (08:34)
[2023-05-13] MEDS ORDERED: POTASSIUM CHLORIDE 10% LIQ 20MEQ/15ML UDC PO ONE (09:00)
[2023-05-13] MEDS ORDERED: METOPROLOL TART 25 MG TABLET PO SCH (09:00)
[2023-05-13 09:29] LABS: CREATININE FOR GFR 0.61 MG/DL (0.70-1.30); GLOMERULAR FILTRATION RATE > 60.0 (>49); VANCOMYCIN LEVEL TROUGH 17.8 UG/ML (10.0-20.0)
[2023-05-13] MEDS: ENOXAPARIN 60MG/0.6ML SYRINGE (J1650 PER 10MG) SC SCH ×2 (10:21→20:31)
[2023-05-13] MEDS: bisoproloL fumarate 5 MG TAB PO SCH (10:31)
[2023-05-13] MEDS ORDERED: VANCOMYCIN HCL 500 MG in D5W MINI-BAG PLUS 100 ML IV SCH (12:00)
[2023-05-13 12:34] LABS: BLOOD UREA NITROGEN 19 MG/DL (9-23); CALCIUM LEVEL 8.1 MG/DL (8.3-10.6); CARBON DIOXIDE LEVEL 27 MMOL/L (20-31); CHLORIDE LEVEL 85 MMOL/L (98-107); GLOMERULAR FILTRATION RATE > 60.0 (>49); GLUCOSE, FASTING 89 MG/DL (74-106); POTASSIUM SERUM 3.4 MMOL/L (3.5-5.1); SODIUM LEVEL 124 MMOL/L (136-145)
[2023-05-13] MEDS: FUROSEMIDE injection 250 MG in D5W 225 ML IV SCH (14:51)
[2023-05-13] MEDS ORDERED: POTASSIUM CHLORIDE 10MEQ SR TABLET PO ONE ×2 (17:00→20:00)
[2023-05-13 18:19] LABS: BLOOD UREA NITROGEN 17 MG/DL (9-23); CALCIUM LEVEL 7.6 MG/DL (8.3-10.6); CARBON DIOXIDE LEVEL 28 MMOL/L (20-31); CHLORIDE LEVEL 86 MMOL/L (98-107); CREATININE FOR GFR 0.61 MG/DL (0.70-1.30); GLOMERULAR FILTRATION RATE > 60.0 (>49); GLUCOSE, FASTING 117 MG/DL (74-106); POTASSIUM SERUM 2.9 MMOL/L (3.5-5.1); SODIUM LEVEL 123 MMOL/L (136-145)
[2023-05-13] MEDS ORDERED: DOXYCYCLINE HYCLATE 100 MG in D5W MINI-BAG PLUS 100 ML IV SCH (18:50)
[2023-05-13] MEDS ORDERED: MAG SULF 1GM/100ML (MAG RUN) 1 GM in IV 1 EA IV ONE (20:00)
[2023-05-13] MEDS ORDERED: DOXYCYCLINE HYCLATE 100MG TABLET PO SCH (21:00)
[2023-05-13 21:30] LABS: ABG BASE EXCESS 4.9 (-2.0-2.0); ABG HCO3 27.6 MMOL/L (22.0-26.0); ABG O2 SATURATION 93.6 % (95.0-99.0); ABG PARTIAL PRESSURE CO2 34.3 mmHg (35.0-45.0); ABG STANDARD HCO3 28.8 MMOL/L. (22.0-26.0); ABG TOTAL CO2 28.6 MMOL/L (23.0-31.0); ABG pH (ARTERIAL) 7.523 UNITS (7.350-7.450)
[2023-05-13 22:16] LABS: BLOOD UREA NITROGEN 17 MG/DL (9-23); CALCIUM LEVEL 7.7 MG/DL (8.3-10.6); CARBON DIOXIDE LEVEL 29 MMOL/L (20-31); CHLORIDE LEVEL 87 MMOL/L (98-107); CREATININE FOR GFR 0.64 MG/DL (0.70-1.30); GLOMERULAR FILTRATION RATE > 60.0 (>49); GLUCOSE, FASTING 101 MG/DL (74-106); POTASSIUM SERUM 3.1 MMOL/L (3.5-5.1); SODIUM LEVEL 126 MMOL/L (136-145)
[2023-05-13] MEDS: KCL 10MEQ/100ML SWI (KRUN) 10 MEQ in IV 1 EA IV SCH ×2 (22:16→23:21)
[2023-05-13] MEDS: DOXYCYCLINE HYCLATE 100 MG in D5W MINI-BAG PLUS 100 ML IV SCH (22:17)
[2023-05-14] VITALS (34 sets, daily range): BP systolic 96–121; BP diastolic 57–73; TEMP 96.7–97.8; O2SAT 84–100
[2023-05-14] MEDS: KCL 10MEQ/100ML SWI (KRUN) 10 MEQ in IV 1 EA IV SCH (00:22)
[2023-05-14] MEDS: LEVALBUTEROL 1.25MG 0.5ML CONCENTRATE NEB INH SCH ×4 (01:07→19:27)
[2023-05-14] MEDS: cefTRIAXone SOD 1 GM in D5W MINI-BAG PLUS 50 ML IV SCH ×2 (01:27→23:14)
[2023-05-14] MEDS: TIOTROPIUM INHALER/CAPSULE (SPIRIVA) INH SCH (07:04)
[2023-05-14] MEDS: SYMBICORT 160/4.5MCG INHALER 6GM INH SCH ×2 (07:04→19:27)
[2023-05-14 07:05] LABS: HEMOGLOBIN 13.2 g/dl (13.5-17.5); MEAN CORPUSCULAR HEMOGLOBIN 37.3 pg (27.0-33.0); MEAN CORPUSCULAR HGB CONC 35.7 g/dl (32.0-36.5); MEAN CORPUSCULAR VOLUME 104.5 fl (80.0-96.0); PLATELET COUNT, AUTOMATED 145 10^3/uL (150-450); RED BLOOD COUNT 3.54 10^6/uL (4.30-6.10)
[2023-05-14 07:17] LABS: DIGOXIN LEVEL 1.5 NG/ML (0.8-2.0)
[2023-05-14 07:19] LABS: BLOOD UREA NITROGEN 15 MG/DL (9-23); CALCIUM LEVEL 7.4 MG/DL (8.3-10.6); CARBON DIOXIDE LEVEL 29 MMOL/L (20-31); CHLORIDE LEVEL 86 MMOL/L (98-107); CREATININE FOR GFR 0.63 MG/DL (0.70-1.30); GLOMERULAR FILTRATION RATE > 60.0 (>49); GLUCOSE, FASTING 191 MG/DL (74-106); MAGNESIUM LEVEL 1.5 MG/DL (1.8-2.4); SODIUM LEVEL 125 MMOL/L (136-145)
[2023-05-14 07:49] LABS: ATYPICAL LYMPH 1 % (0-5); MONOCYTES 5 % (0-5); NEUTROPHILS 91 % (28-66)
[2023-05-14 07:50] LABS: PLATELET ESTIMATE DECREASED (NORMAL)
[2023-05-14] MEDS: FUROSEMIDE injection 250 MG in D5W 225 ML IV SCH (08:43)
[2023-05-14] MEDS: DOXYCYCLINE HYCLATE 100 MG in D5W MINI-BAG PLUS 100 ML IV SCH (08:43)
[2023-05-14] MEDS: NICOTINE 21MG/24HR 1 EA TRANSDERMAL TD PRN (08:43)
[2023-05-14] MEDS: ENOXAPARIN 60MG/0.6ML SYRINGE (J1650 PER 10MG) SC SCH ×2 (08:44→20:30)
[2023-05-14] MEDS: bisoproloL fumarate 5 MG TAB PO SCH (08:44)
[2023-05-14] MEDS: THIAMINE 100 MG TAB PO SCH ×2 (08:44→20:31)
[2023-05-14] MEDS: DIGOXIN 0.25 MG TAB PO SCH (08:44)
[2023-05-14] MEDS: MULTIVITAMINS/MINERALS THERAP 1 TAB PO SCH (08:44)
[2023-05-14] MEDS: FOLIC ACID 1MG TAB PO SCH (08:44)
[2023-05-14] MEDS: CLOTRIMAZOLE 1% TOPICAL CREAM 30GM TOP SCH ×2 (08:45→20:32)
[2023-05-14] MEDS ORDERED: POTASSIUM CHLORIDE 10% LIQ 20MEQ/15ML UDC PO ONE (09:00)
[2023-05-14] MEDS: MAG SULF 1GM/100ML (MAG RUN) 1 GM in IV 1 EA IV SCH ×4 (10:03→14:14)
[2023-05-14] MEDS: POTASSIUM CHLORIDE 10MEQ SR TABLET PO SCH ×3 (11:20→20:30)
[2023-05-14 16:05] LABS: BLOOD UREA NITROGEN 16 MG/DL (9-23); CARBON DIOXIDE LEVEL 32 MMOL/L (20-31); CHLORIDE LEVEL 86 MMOL/L (98-107); CREATININE FOR GFR 0.59 MG/DL (0.70-1.30); GLOMERULAR FILTRATION RATE > 60.0 (>49); GLUCOSE, FASTING 106 MG/DL (74-106); POTASSIUM SERUM 2.9 MMOL/L (3.5-5.1); SODIUM LEVEL 127 MMOL/L (136-145)
[2023-05-14] MEDS ORDERED: MAG SULF 1GM/100ML (MAG RUN) 1 GM in IV 1 EA IV ONE (18:00)
[2023-05-14] MEDS: DOXYCYCLINE HYCLATE 100MG TABLET PO SCH (20:31)
[2023-05-14 22:16] LABS: BLOOD UREA NITROGEN 14 MG/DL (9-23); CALCIUM LEVEL 7.8 MG/DL (8.3-10.6); CARBON DIOXIDE LEVEL 33 MMOL/L (20-31); CHLORIDE LEVEL 87 MMOL/L (98-107); CREATININE FOR GFR 0.59 MG/DL (0.70-1.30); GLOMERULAR FILTRATION RATE > 60.0 (>49); GLUCOSE, FASTING 113 MG/DL (74-106); POTASSIUM SERUM 3.4 MMOL/L (3.5-5.1); SODIUM LEVEL 129 MMOL/L (136-145)
[2023-05-15] VITALS (16 sets, daily range): BP systolic 116; BP diastolic 67–73; TEMP 97.4–97.9; O2SAT 85–100
[2023-05-15] MEDS: LEVALBUTEROL 1.25MG 0.5ML CONCENTRATE NEB INH SCH ×2 (02:33→07:20)
[2023-05-15 03:23] LABS: BASO % 0.2 % (0.0-1.0); HEMATOCRIT 37.4 % (42.0-52.0); HEMOGLOBIN 13.7 g/dl (13.5-17.5); LYMPH # 0.4 10^3/uL (1.5-5.0); LYMPH % 2.3 % (24.0-44.0); MEAN CORPUSCULAR HEMOGLOBIN 37.8 pg (27.0-33.0); MEAN CORPUSCULAR VOLUME 103.3 fl (80.0-96.0); MONO # 0.9 10^3/uL (0.0-0.8); MONO % 4.9 % (2.0-8.0); NEUTROPHILS # 17.4 10^3/uL (1.5-8.5); NEUTROPHILS % 91.7 % (36.0-66.0); PLATELET COUNT, AUTOMATED 107 10^3/uL (150-450); RED BLOOD COUNT 3.62 10^6/uL (4.30-6.10)
[2023-05-15 03:25] LABS: MEAN CORPUSCULAR HGB CONC 36.6 g/dl (32.0-36.5)
[2023-05-15 03:46] LABS: BLOOD UREA NITROGEN 14 MG/DL (9-23); CALCIUM LEVEL 7.6 MG/DL (8.3-10.6); CARBON DIOXIDE LEVEL 37 MMOL/L (20-31); CHLORIDE LEVEL 91 MMOL/L (98-107); CREATININE FOR GFR 0.59 MG/DL (0.70-1.30); GLOMERULAR FILTRATION RATE > 60.0 (>49); GLUCOSE, FASTING 111 MG/DL (74-106); POTASSIUM SERUM 3.4 MMOL/L (3.5-5.1); SODIUM LEVEL 133 MMOL/L (136-145)
[2023-05-15] MEDS ORDERED: D5W 500 ML IV ONE (05:55)
[2023-05-15] MEDS ORDERED: POTASSIUM CHLORIDE 10% LIQ 20MEQ/15ML UDC PO ONE (06:00)
[2023-05-15] MEDS: TIOTROPIUM INHALER/CAPSULE (SPIRIVA) INH SCH (07:20)
[2023-05-15] MEDS: SYMBICORT 160/4.5MCG INHALER 6GM INH SCH (07:21)
[2023-05-15] MEDS ORDERED: POTASSIUM CHLORIDE 10MEQ SR TABLET PO SCH (09:00)
[2023-05-15 09:13] LABS: BLOOD UREA NITROGEN 13 MG/DL (9-23); CALCIUM LEVEL 7.3 MG/DL (8.3-10.6); CARBON DIOXIDE LEVEL 34 MMOL/L (20-31); CHLORIDE LEVEL 89 MMOL/L (98-107); CREATININE FOR GFR 0.51 MG/DL (0.70-1.30); GLOMERULAR FILTRATION RATE > 60.0 (>49); GLUCOSE, FASTING 139 MG/DL (74-106); MAGNESIUM LEVEL 1.7 MG/DL (1.8-2.4); POTASSIUM SERUM 2.9 MMOL/L (3.5-5.1); SODIUM LEVEL 131 MMOL/L (136-145)
[2023-05-15] MEDS: ENOXAPARIN 60MG/0.6ML SYRINGE (J1650 PER 10MG) SC SCH (09:26)
[2023-05-15] MEDS: CLOTRIMAZOLE 1% TOPICAL CREAM 30GM TOP SCH (09:26)
[2023-05-15] MEDS: bisoproloL fumarate 5 MG TAB PO SCH (09:26)
[2023-05-15] MEDS: DOXYCYCLINE HYCLATE 100MG TABLET PO SCH (09:27)
[2023-05-15] MEDS: FOLIC ACID 1MG TAB PO SCH (09:27)
[2023-05-15] MEDS: THIAMINE 100 MG TAB PO SCH (09:27)
[2023-05-15] MEDS: MULTIVITAMINS/MINERALS THERAP 1 TAB PO SCH (09:27)
[2023-05-15] MEDS: DIGOXIN 0.25 MG TAB PO SCH (09:27)
[2023-05-15] MEDS: NICOTINE 21MG/24HR 1 EA TRANSDERMAL TD PRN (09:42)
[2023-05-15] MEDS ORDERED: ACETAMINOPHEN 650MG SUPP PR PRN (12:15)
[2023-05-15] MEDS ORDERED: LORazepam 2 MG/ML 1ML VIAL IV PRN (12:15)
[2023-05-15] MEDS ORDERED: ATROPINE SULFATE 1% OPHTH SOLN 2ML BTL SL PRN (12:15)
[2023-05-15] MEDS ORDERED: BISACODYL 10MG SUPP PR PRN (12:15)
[2023-05-15] MEDS ORDERED: MORPHINE 2 MG/ML 1ML VIAL IV PRN (12:15)
[2023-05-15] MEDS ORDERED: FLEET ENEMA PR PRN (12:15)
[2023-05-15] MEDS ORDERED: ONDANSETRON 4MG 2ML VIAL IV PRN (12:15)
[2023-05-15] MEDS ORDERED: HYOSCYAMINE SULFATE 0.125 MG SUBL TABLET PO PRN (12:15)
[2023-05-15] MEDS ORDERED: ACETAMINOPHEN TAB 650MG DOSE (2X325MG) PO PRN (12:15)
[2023-05-15] MEDS: SCOPOLAMINE 1MG TRANSDERMAL PATCH TOP PRN (23:54)
[2023-05-16] MEDS: MORPHINE 10MG/0.5ML ORAL CONCENTRATE SOLUTION U/D SL PRN ×6 (05:25→23:29)
[2023-05-16] MEDS ORDERED: MORPHINE 2 MG/ML 1ML VIAL IV PRN (14:15)
[2023-05-17] MEDS: MORPHINE 10MG/0.5ML ORAL CONCENTRATE SOLUTION U/D SL PRN ×4 (02:51→15:37)
[2023-05-17 15:07] LABS: BODY FLUID CULTURE Not indicated. (.); LEGIONELLA ANTIGEN URINE Negative (Negative); ORGANISM ID Not indicated. (.); SPECIMEN SOURCE Urine (.); URINE STREP PNEUMONIAE ANTIGEN Negative (Negative)
[2023-05-18] MEDS: MORPHINE 10MG/0.5ML ORAL CONCENTRATE SOLUTION U/D SL PRN ×2 (01:47→19:32)
[2023-05-18] MEDS ORDERED: NYSTATIN OINTMENT 15 GM TOP PRN (15:25)
[2023-05-18] MEDS ORDERED: diphenhydrAMINE 50MG/ML VIAL IV PRN (15:25)
[2023-05-19] MEDS: MORPHINE 10MG/0.5ML ORAL CONCENTRATE SOLUTION U/D SL PRN ×2 (07:44→18:13)
[2023-05-20] MEDS: MORPHINE 10MG/0.5ML ORAL CONCENTRATE SOLUTION U/D SL PRN ×4 (03:26→20:43)
[2023-05-21] MEDS: MORPHINE 10MG/0.5ML ORAL CONCENTRATE SOLUTION U/D SL PRN ×4 (02:06→12:21)
[2023-05-22] MEDS: MORPHINE 10MG/0.5ML ORAL CONCENTRATE SOLUTION U/D SL PRN (01:46)
[2023-05-22] MEDS: ONDANSETRON 4MG ORAL DISINTEGRATING TAB PO PRN ×2 (01:46→19:59)
[2023-05-22] MEDS: CALCIUM CARBONATE 500 MG CHEW U/D PO PRN (15:05)
[2023-05-22] MEDS: FAMOTIDINE 20 MG TAB PO SCH (17:05)
[2023-05-23] MEDS: MORPHINE 10MG/0.5ML ORAL CONCENTRATE SOLUTION U/D SL PRN ×4 (00:34→11:00)
[2023-05-23] MEDS: CALCIUM CARBONATE 500 MG CHEW U/D PO PRN (00:40)
[2023-05-23] MEDS ORDERED: BISACODYL 5MG TAB PO PRN (05:20)
[2023-05-23] MEDS: FAMOTIDINE 20 MG TAB PO SCH ×2 (08:05→20:16)
[2023-05-23] MEDS: LORazepam 1 MG TAB PO PRN ×2 (11:44→19:49)
[2023-05-23] MEDS: SCOPOLAMINE 1MG TRANSDERMAL PATCH TOP PRN (19:54)
[2023-05-23] MEDS ORDERED: LORazepam 2 MG/ML 1ML VIAL IM PRN (19:55)
[2023-05-24] MEDS: LORazepam 1 MG TAB PO PRN (04:20)
[2023-05-24] MEDS: MORPHINE 10MG/0.5ML ORAL CONCENTRATE SOLUTION U/D SL PRN ×3 (04:20→10:39)
[2023-05-24] MEDS: FAMOTIDINE 20 MG TAB PO SCH (08:55)
[2023-05-24] MEDS ORDERED: HYOS125TA PO (11:43)
[2023-05-24] MEDS ORDERED: ATIV1TAB10 PO (11:43)
[2023-05-24] MEDS ORDERED: MORP1SOL5 PO (11:43)
== END 2023-05-24 12:35 | disposition hospice, inpatient (51) | DRG 134 ==
LOC: EDBD 07:30 → M ED 07:30 → CMPBEDREQ 10:04 → M ED INP 10:35 → ENRESERV 15:57 → M PCU 16:52 → M MS5PR 05-21 02:16
PROVIDERS: ADMIT Internal Medicine; ATTEND Internal Medicine
PROC: B246ZZZ Ultrasonography of Right and Left Heart (ICD-10-PCS; principal; 2023-05-14)
DX: I26.99 Other pulmonary embolism without acute cor pulmonale (principal); J96.01 Acute respiratory failure with hypoxia; J15.6 Pneumonia due to other Gram-negative bacteria; I50.23 Acute on chronic systolic (congestive) heart failure; L89.226 Pressure-induced deep tissue damage of left hip; C41.1 Malignant neoplasm of mandible; E87.1 Hypo-osmolality and hyponatremia; I42.9 Cardiomyopathy, unspecified; L89.212 Pressure ulcer of right hip, stage 2; I48.11 Longstanding persistent atrial fibrillation; E83.42 Hypomagnesemia; Z51.5 Encounter for palliative care; Z66 Do not resuscitate; J44.9 Chronic obstructive pulmonary disease, unspecified; F17.210 Nicotine dependence, cigarettes, uncomplicated; N50.89 Other specified disorders of the male genital organs; D64.9 Anemia, unspecified; F10.20 Alcohol dependence, uncomplicated; B37.49 Other urogenital candidiasis; Z79.899 Other long term (current) drug therapy